=== PATIENT | female | born 1970 | race Caucasian/White ===

== ENCOUNTER → 2017-09-29 11:01 | Outpatient (CLI) | payer BC, SELFPAY ==
--- NOTE | 2017-09-29 11:00 | ECHOCS_ITS ---
Reason For Study: Arrhythmia Procedure This was a 2D Doppler, Color Flow transthoracic echocardiogram. Exam performed in department. Left Ventricle Normal LV size. Mild concentric left ventricular hypertrophy. Left ventricular systolic function is normal. The estimated ejection fraction is 60 %. No regional wall motion abnormalities noted. Right Ventricle Normal RV size. Normal systolic function. Atria Normal left atrium. Normal right atrium. Mitral Valve Normal mitral valve. Tricuspid Valve Normal tricuspid valve. Aortic Valve Normal aortic valve. Trisinus/trileaflet aortic valve. Pulmonic Valve Normal pulmonic valve. Great Vessels Normal aortic root. The pulmonary artery is normal size. Normal inferior vena cava. Pericardium/Pleural No pericardial effusion. Medication 22 gauge I.V. with prn adaptor inserted into left arm. Diluted definity 3ml given slow IV push to enhance endocardial definition. MMode/2D Measurements & Calculations LVIDd: 4.3 cm IVSd: 1.3 cm LVOT diam: 2.0 cm LVIDs: 2.9 cm LVPWd: 1.2 cm LVOT area: 3.2 cm2 RVDd: 3.2 cm FS: 31.8 % Ao root diam: 3.1 cm LAV(MOD-bp): 50.1 ml LA dimension: 4.1 cm LAV(MOD-bp) Indexed: 24.6 ml/m2 LA A4 area: 14.9 cm2 LAV(MOD-sp2): 67.7 ml LAV(MOD-sp4): 35.8 ml RA A4 area: 13.0 cm2 Time Measurements MV dec time: 0.25 sec Doppler Measurements & Calculations MV E max angelo: 101.2 cm/sec Lat Peak E' Angelo: 14.5 cm/sec Med Peak E' Angelo: 15.4 cm/sec MV A max angelo: 76.2 cm/sec E/E' lat: 7.0 E/E' med: 6.6 MV E/A: 1.3 MV V2 max: 98.8 cm/sec MV P1/2t max angelo: 98.4 cm/sec Ao V2 max: 168.6 cm/sec MV max P.9 mmHg MV P1/2t: 67.0 msec Ao max P.4 mmHg MV V2 mean: 37.7 cm/sec MV dec slope: 429.8 cm/sec2 Ao V2 mean: 95.6 cm/sec MV mean P.76 mmHg MVA(P1/2t): 3.3 cm2 Ao mean P.4 mmHg MV V2 VTI: 33.3 cm Ao V2 VTI: 34.5 cm MVA(VTI): 2.4 cm2 MILE(I,D): 2.3 cm2 MILE(V,D): 2.1 cm2 LV V1 max: 109.6 cm/sec SV(LVOT): 78.8 ml PA V2 max: 93.6 cm/sec LV V1 max P.8 mmHg LV V1 mean P.0 mmHg LV V1 mean: 65.7 cm/sec LV V1 VTI: 24.3 cm Interpretation Summary Normal LV size. Mild concentric left ventricular hypertrophy. Left ventricular systolic function is normal. The estimated ejection fraction is 60 %. Contrast injection was performed. Ordering Physician: Wm Andersen Referring Physician: Wm Andersen Performed By: Pepe Au RCS
--- NOTE | 2017-09-29 18:43 | STRESSREP ---
Stress Test Report Exercise stress test 47-year-old lady with a history of chest pain. Stress protocol: Resting EKG demonstrates sinus bradycardia with a rate of 47 bpm. Resting blood pressure is 142/94 mmHg. She did exercised according to regular Karson protocol for 3 minutes and 16 seconds attaining a maximum heart rate of 121 bpm which was 70% of the maximum predicted heart rate. The maximum workload attained was 4.9 metabolic equivalents. At rest there were no ST or T-wave changes noted to suggest ischemia at peak exercise no ST or T-wave changes were noted suggest ischemia. He was however able to accelerate her heart rate appropriately though she did not obtain 85% of the maximum predicted heart rate. The resting blood pressure was 142/94 with a peak of 154/90. No clinical angina was noted. Conclusion: Exercise stress test at a low workload demonstrating adequate chronotropic competence. Low functional aerobic capacity.
== END ==
PROVIDERS: Visit Provider Internal Medicine Cardiovascular Disease
DX: R00.1 Bradycardia, unspecified (principal)
CPT/HCPCS: 93017; 93306; Q9957; A4216; C8929

== ENCOUNTER → 2017-12-04 07:38 | Outpatient (CLI) | payer BC, SELFPAY ==
[2017-12-04 09:00] LABS: Hemoglobin A1c 5.6 % (4.2-6.3)
[2017-12-04 09:19] LABS: T4 Free Direct 1.06 ng/dL (0.76-1.46); Thyroid Stim Hormone (TSH) 2.13 uIU/mL (0.358-3.74)
== END ==
PROVIDERS: Visit Provider Internal Medicine Endocrinology, Diabetes & Metabolism
DX: E03.9 Hypothyroidism, unspecified (principal); R73.03 Prediabetes
CPT/HCPCS: 36415; 83036; 84439; 84443

== ENCOUNTER 2017-12-08 16:38 | Outpatient (RCR) | payer BC, SELFPAY | END 2017-12-22 23:59 | LOC: NS 16:38 | DX: Z68.39 Body mass index [BMI] 39.0-39.9, adult (principal); Z71.3 Dietary counseling and surveillance | CPT/HCPCS: 97802 ==

== ENCOUNTER 2018-01-15 16:30 | Outpatient (RCR) | payer BC, SELFPAY | END 2018-01-22 23:59 | LOC: NS 16:30 | DX: Z68.39 Body mass index [BMI] 39.0-39.9, adult (principal); Z71.3 Dietary counseling and surveillance | CPT/HCPCS: 97803 ==

== ENCOUNTER → 2018-01-29 09:30 | Outpatient (CLI) | payer BC, SELFPAY ==
--- NOTE | 2018-01-29 | TISS_PTH ---
PATIENT: DELMER AVILA LOC: [facility] U#:[id number] AGE/SX: 54/F ROOM: RE01/29/[address]: Dr. Jaxon Hawkins DDS : 1970 BED: DIS: SPEC #: [id number] RECD: 02/03/18 08:27 STATUS: BAM GLEN #: [id number] KUSHAL: 01/29/18 00:[address]: Jaxon Hawkins DEPT: SURGICAL PATHOLOGY RECD BY: Nima Herrera Tissues: Soft palate Procedures: Surgery Specimen Level IV HEADER OPERATION: Biopsy left palate PRE-OP DIAGNOSIS: Not noted TISSUE SUBMITTED: Left soft palate MICROSCOPIC DIAGNOSIS Left soft palate, biopsy: Fragment of squamous mucosa with focal area of recent hemorrhage and ductal dilation. Negative for malignancy. SJ:magnus 02/03/18 MICROSCOPIC DESCRIPTION Slides are reviewed. GROSS DESCRIPTION Received in fixative is one container labeled with the patient's name and designated left palate. The specimen consists of a piece of melchor-pink soft tissue measuring 0.3 x 0.3 x 0.2 cm. The specimen is totally submitted in one cassette. / SJ:rg 01/30/18 TC:5 [facility]: [id number]
--- NOTE | 2018-01-29 09:30 | DT_ITS ---
This patient was seen during an EMR downtime January 26, 2018 - February 02, 2018. This patient may have a combination of paper and electronic documentation or all paper documentation. All documentation is viewable within the e-chart portion of [facility] for each patient visit.
== END ==
PROVIDERS: Visit Provider Dentist Oral and Maxillofacial Surgery
DX: D37.09 Neoplasm of uncertain behavior of other specified sites of the oral cavity (principal)
CPT/HCPCS: 88305

== ENCOUNTER → 2018-02-28 10:03 | Outpatient (CLI) | payer BC, SELFPAY ==
--- NOTE | 2018-02-28 10:56 | RAD_ITS ---
STUDY: X-RAY CHEST REASON FOR EXAM: Female, 47 years old. Cough TECHNIQUE: PA and lateral views of the chest. COMPARISON: None. FINDINGS: Streaky linear markings in the lingula. There is no demonstrated pleural abnormality. Normal size heart. Normal mediastinum and charbel. Normal visualized pulmonary arteries. Normal visualized aortic arch and descending thoracic aorta. There is a levoscoliosis of the thoracic spine. Normal visualized ribs, clavicles, and shoulders. There is no demonstrated abnormality of the visualized soft tissue structures of the upper abdomen. RAD/Chest PA and Lateral IMPRESSION: Lingular atelectasis versus developing infiltrates. Electronically Signed: Aydee Leon MD at 15:36 EDT Tel , Service support ,
--- NOTE | 2018-02-28 10:56 | RAD_ITS ---
STUDY: X-RAY - LUMBAR SPINE REASON FOR EXAM: Female, 47 years old. Back pain, MS TECHNIQUE: 3 view(s) of the lumbar spine were obtained. COMPARISON: None FINDINGS: Normal lumbar lordosis. There is no substantial scoliosis. There is a normal alignment of the vertebrae. There is multilevel endplate spondylosis of the lumbar vertebrae. Normal disc space heights. There is facet arthropathy L4-L5 and L5-S1. There is soft tissue calcifications in the left pelvis suggestive of phleboliths. There is postoperative change right upper quadrant status post cholecystectomy. RAD/Lumbar Spine 2 or 3 Views IMPRESSION: Moderate degenerative change no visualized fracture. Status post cholecystectomy. Electronically Signed: Aydee Leon MD at 15:38 EDT Tel , Service support ,
== END ==
DX: M54.5 Low back pain (principal); R05 Cough
CPT/HCPCS: 71046; 72100

== ENCOUNTER → 2018-03-05 07:50 | Outpatient (CLI) | payer BC, SELFPAY ==
[2018-03-07 15:11] LABS: H. PYLORI STOOL AG Negative (Negative)
== END ==
DX: A04.8 Other specified bacterial intestinal infections (principal)

== ENCOUNTER → 2018-03-14 09:48 | Outpatient (CLI) | payer BC, SELFPAY ==
--- NOTE | 2018-03-14 09:55 | RAD_ITS ---
STUDY: X-RAY CHEST REASON FOR EXAM: Female, 47 years old. Cough. TECHNIQUE: Frontal and lateral views of the chest. COMPARISON: 02/28/2018. FINDINGS: The lungs are clear and expanded. Minimal scar across the mid left lung. There is no demonstrated pleural abnormality. Normal size heart. Normal mediastinum and charbel. Normal visualized pulmonary arteries. Normal visualized aortic arch and descending thoracic aorta. Normal visualized thoracic spine. Normal visualized ribs, clavicles, and shoulders. There is no demonstrated abnormality of the visualized soft tissue structures of the upper abdomen. RAD/Chest PA and Lateral IMPRESSION: No significant abnormality. Electronically Signed: Steve Banerjee MD at 21:41 EDT , Service support ,
== END ==
DX: R93.8 Abnormal findings on diagnostic imaging of other specified body structures (principal)
CPT/HCPCS: 71046

== ENCOUNTER 2018-03-17 15:15 | Outpatient (RCR) | payer BC, SELFPAY | END 2018-03-24 23:59 | disposition home or self-care (01) | LOC: NS 15:15 | DX: Z68.39 Body mass index [BMI] 39.0-39.9, adult (principal); Z71.3 Dietary counseling and surveillance | CPT/HCPCS: 97803 ==

== ENCOUNTER → 2018-03-21 09:41 | Outpatient (CLI) | payer BC, SELFPAY ==
[2018-03-21 10:47] LABS: Hemoglobin A1c 5.5 % (4.2-6.3)
[2018-03-21 10:51] LABS: ALB/GLOB Ratio 1.1 RATIO (0.9-2.4); AST(SGOT) 12 U/L (15-37); Alanine Aminotransfer ALT/SGPT 19 U/L (13-56); Albumin, Serum 3.6 g/dL (3.2-5.0); Alkaline Phosphatase 76 U/L (45-117); Anion Gap 8 (5-15); BUN 11 mg/dL (7-18); BUN/Creat Ratio 10.1 RATIO (10-20); Calcium,Total 8.8 mg/dL (8.5-10.1); Chloride 107 mmol/L (98-107); Cholesterol 172 mg/dL (200); Creatinine, Serum 1.09 mg/dL (0.55-1.02); EST Glomerular Filtration Rate 57 mL/min (>60); Est Glom Filt Rate - Afr Amer 69 mL/min (>60); Globulin 3.4 g/dL (2.2-4.2); Glucose 127 mg/dL (74-106); High Density Lipoprotein 34 mg/dL; Potassium 4.3 mmol/L (3.5-5.1); Sodium Level 142 mmol/L (136-145); T4 Free Direct 0.94 ng/dL (0.76-1.46); Thyroid Stim Hormone (TSH) 1.59 uIU/mL (0.358-3.74); Triglycerides 107 mg/dL; Very Low Density Lipoprotein 21 mg/dL (5-40)
[2018-03-21 10:52] LABS: 24HR. Urine Creatinine 1.36 g/24 HR (0.70-1.90)
[2018-03-23 09:23] LABS: Vitamin D,25 Hydroxy 42.4 ng/mL (29.95-100.01)
== END ==
PROVIDERS: Visit Provider Internal Medicine Endocrinology, Diabetes & Metabolism
DX: E55.9 Vitamin D deficiency, unspecified (principal); E27.9 Disorder of adrenal gland, unspecified; R73.03 Prediabetes; E03.9 Hypothyroidism, unspecified
CPT/HCPCS: 36415; 80053; 80061; 82306; 82570; 83036; 84439; 84443

== ENCOUNTER → 2018-03-24 10:23 | Outpatient (CLI) | payer BC, SELFPAY ==
--- NOTE | 2018-03-24 10:26 | BI_ITS ---
MAMMOGRAPHY - BILATERAL SCREENING 3-D DEJON SYNTHESIS REASON FOR EXAM: Female, 47 years old. Bilateral Screening 3-D tomosynthesis PERTINENT HISTORY: Left breast biopsy 2015 negative. No significant family history. TECHNIQUE: 2-D mammograms and 3-D Dejon synthesis of the breast (s) were performed. CAD was performed. COMPARISON: 09/07/2014 through 08/03/2014. FINDINGS: The breast composition is composed of scattered fibroglandular density. No new asymmetric density, dominant mass, dense spiculated masses, abnormal clustered microcalcifications, architectural distortion, skin thickening or nipple retraction identified. Coarse benign-appearing calcifications. Left breast upper inner quadrant tiny biopsy clip noted. No new abnormality identified with tomosynthesis. There has been no significant change since the prior study. BI/SCREENING MAMM (CAD), BILAT IMPRESSION: No mammographic signs of malignancy. Routine yearly mammograms recommended. ASSESSMENT CATEGORY: BIRADS Category 2: Benign. A letter regarding these results will be sent to the patient by the facility within 30 days. FOLLOW UP RECOMMENDATION: Yearly follow up mammogram recommended. (A) Negative results should not deter biopsy as a palpable lesion should be followed on clinical grounds and biopsy performed if clinically persistent for 3 months or increasing size. Approximately 10% of breast cancers are not detected by mammography. A normal mammogram should not delay biopsy of a clinically suspicious abnormality. . Electronically Signed: Jose Juan Simmons, at 17:07 EDT Tel , Service support ,
--- NOTE | 2018-03-24 10:28 | BD_ITS ---
STUDY: DUAL ENERGY X-RAY ABSORPTIOMETRY / DXA REASON FOR EXAM: Female, 47 years old. Loss of height. TECHNIQUE: Bone Mineral Density (BMD) measurements of lumbar spine and bilateral hips were obtained. COMPARISON: None. FINDINGS: Lumbar Spine (L1-L4): g/cm2 (0.995) / T-score (-1.5) / Z-score (-1.2) Findings are suggestive of osteopenia with a moderate fracture risk. Left Femur Total: g/cm2 (1.077) / T-score (0.5) / Z-score (1.0) Left Femoral Neck: g/cm2 (1.003) / T-score (-0.2) / Z-score (0.5) Right Femur Total: g/cm2 (1.000) / T-score (-0.1) / Z-score (0.4) Right Femoral Neck: g/cm2 (0.885) / T-score (-1.1) / Z-score (-0.4) BD/Dexa Bone Density Study IMPRESSION: The patient is considered osteopenic as outlined below according to World Josh Organization (WHO) criteria with a moderate fracture risk. Reference Information: The T-score is the number of standard deviations above or below the standard which is normal for young adults at their peak bone mineral density. The World Health Organization (WHO) interprets the T-scores as follows: Above -1 Normal bone density Between -1 and -2.5 Osteopenia Equal to / or below -2.5 Osteoporosis As a practical clinical guideline, osteopenia may be graded as follows: Mild -1 through -1.5 Moderate -1.6 through -2.0 Severe -2.1 through -2.4 The Z-score is the number of standard deviations above or below age-matched controls. A Z-score of less than -1.5 would be considered abnormal. References: 1. NIH Osteoporosis and Related Bone Diseases http://www.osteo.org 2. International Society for Clinical Densitometry http://www.iscd.org 3. National Osteoporosis Foundation http://www.nof.org Electronically Signed: Raheem Hood MD at 15:01 EDT Tel [phone], Service support ,
== END ==
DX: Z12.31 Encounter for screening mammogram for malignant neoplasm of breast (principal); Z13.820 Encounter for screening for osteoporosis
CPT/HCPCS: 77063; 77067; 77080

== ENCOUNTER → 2018-03-25 12:55 | Outpatient (CLI) | payer BC, SELFPAY ==
--- NOTE | 2018-03-25 13:10 | CT_ITS ---
STUDY: CT ABDOMEN WITH AND WITHOUT CONTRAST REASON FOR EXAM: Female, 47 years old. Left-sided adrenal mass for follow-up. RADIATION DOSAGE (If Supplied By Facility): CTDIvol = ( 35.78 ) mGy, DLP = ( 2073.03 ) mGycm TECHNIQUE: Transaxial images were obtained pre and post I.V. administration of 100 ml of Isovue 300, and oral contrast. Sagittal and coronal images were reconstructed. Individualized dose optimization techniques were used for this CT. COMPARISON: MR abdomen May 12, 2017. FINDINGS: The visualized lung bases are unremarkable. The visualized portions of the heart are within normal limits. Normal liver. There are surgical clips in the gallbladder fossa consistent with a prior cholecystectomy. Normal spleen. Normal pancreas. Right adrenal gland is normal. Again noted is a left adrenal nodule measuring 2.6 x 2.4 x 1.9 cm not significantly changed in size, as determined by this examiner comparing both studies, with an attenuation on noncontrast enhanced images varying from 6 to -24 Hounsfield units compatible with an adrenal adenoma. Attenuation on initial and delayed contrast-enhanced images is 49 and 13 Hounsfield units respectively. Normal right kidney. Normal left kidney. Normal visualized stomach. Normal visualized small and large bowel. Normal abdominal aorta. Normal inferior vena cava. Normal retroperitoneum. Normal abdominal wall. Normal osseous structures. CT/Abdomen W/WO IV Contrast IMPRESSION: Stable left adrenal nodule compatible with an adrenal adenoma. Electronically Signed: Jim Cummings MD at 7:48 EDT , Service support ,
== END ==
PROVIDERS: Visit Provider Internal Medicine Endocrinology, Diabetes & Metabolism
DX: E27.9 Disorder of adrenal gland, unspecified (principal)
CPT/HCPCS: 74170; Q9967

== ENCOUNTER → 2018-03-28 09:49 | Outpatient (CLI) | payer BC, SELFPAY ==
[2018-04-01 09:08] LABS: Cortisol, Urinary Free 17 ug/L (Undefined)
[2018-04-01 11:11] LABS: Cortisol, Free 24Ur 26 ug/24 hr (0-50)
[2018-04-03 03:06] LABS: Dopamine, UR 118 ug/L (Undefined); Epinephrine, 24Ur 2 ug/24 hr (0-20); Epinephrine, Ur 1 ug/L (Undefined); Metanephrine, Ur 48 ug/L (Undefined); Norepinephrine, 24Ur 26 ug/24 hr (0-135); Norepinephrine, Ur 17 ug/L (Undefined); Normetanephrines, Ur 177 ug/L (Undefined)
[2018-04-03 11:34] LABS: Dopamine, 24Ur 183 ug/24 hr (0-510); Metanephrines, 24Ur 74 ug/24 hr (45-290); Normetanephrines, 24Ur 274 ug/24 hr (82-500)
== END ==
PROVIDERS: Visit Provider Internal Medicine Endocrinology, Diabetes & Metabolism
DX: E55.9 Vitamin D deficiency, unspecified (principal); E27.9 Disorder of adrenal gland, unspecified; R73.03 Prediabetes; E03.9 Hypothyroidism, unspecified
CPT/HCPCS: 81050; 82384; 82530; 83835

== ENCOUNTER 2018-04-01 18:00 | Outpatient (RCR) | payer BC, SELFPAY ==
--- NOTE | 2018-01-16 08:06 | HP.PTEVAL ---
Patient's Visit Information DELMER AVILA is a 47 year old F referred to Physical Therapy by JOHNATHAN KAUR with a diagnosis of MS. Date of Evaluation: 01/16/18 Physical Therapist: MIRELLA EasleyT, OC - Visit Plan Plan: 3x/week for 4-6 wees for. 1. gastroc stretch. 2. Strength R LE. 3. general postural strength program and core. 4. balance ex. Progress all t o I gym program with list when safe. - Subjective Subjective: Has MS. Tried therapy a year ago but did not have time. Needs to get stronger. Started [facility] at the hospital. Wants to wrok out on her own. Needs core strength adn R leg is weak. A couple falls years ago unsure of why and without warning except tripped over basketball hoop once and could not catch self. One time R shoe caught on floor. Has AFO hinged but does not wear it. Pain is intermittent occasionally in R LE and LB if she does too much. One hour with a cart at [facility] is limit. Can't walk a block without support as R leg gives out. Diagnosed with MS at 26. 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 Co-workers walk at lunch and she cannot join them. Prior liked kick boxing and rock climbing. 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 Was very active, now sleeps alot. Even quit one job becasue wparking lot was too far from building. Avoids housework adn cooking too long becasue it hurts to stand too long in hips when R leg gets tired.Feels better when sits down. Basic ADLs are OK. Rolling in bed is hard to do, core is weak. - Pain LBP Pain Intensity (Out of 10): 0 Pain Intensity Range: 0, 5 Comment: on feet too much. - Objective R LE weakness with walking. I 200 feet today until limping got worse. No catches of R toe today. Trasnfers I without UE, Mat trasnfers show core weakness. Steps are reciprocal with one rail ascending and two descending and obvious descending weakness on R. Posture is slouched forward adn flat lordosis, appears to have some diastis recti. Gastroc is tight R LE to -2 degrees of DF with knee straight, otherwise WFL flexibility. reflexes are 2+/3 in patella and achilles adn bi and tri. Sensation LE WNL to gross light touch. Coordination to reciprocal toe tap WFL. Strength R hip 4-/5, L hip 4/5. Knees 4+ L and 4 R. ankles strength 4 B inv/ev/ adn DF. - Balance Scores Functional Gait Assessment Score: 22 % Disability: 26.6700 CATSIB Score (Max score 120 seconds): 100 - Goals Goal 1:: I approp Gym based strengtha dn stretching abd balance program to minimize future problems. Goal Time Frame: 4-6 Weeks Goal 2:: R gastroc length to 2 degrees DF to limit chances of catching toe. Goal Time Frame: 4-6 Weeks Goal 3:: Steps reciprocally without UE ascending and one rail descending. Goal Time Frame: 4-6 Weeks Goal 4:: Patient feel 50% stronger and more activie Goal Time Frame: 4-6 Weeks - Rehabilitation Potential Physical Therapy Diagnosis: MS with resulting weakness and tightness in R LE adn mobility concerns. Rehabilitation Potential: Fair - Anticipated Interventions Patient/Client Instruction: Educate patient on: Condition For the Purpose of:: To improve ability of physical actions for home/community/work/leisure Therapeutic Exercise to Include: Strength training, Balance training, Flexibilty training, Gait and locomotor training For the Purpose of:: To improve muscle performance and motor function, To improve ability of physical actions for home/community/work/leisure, To improve gait and locomotor functions, To improve safety with gait Thank you for the opportunity to evaluate your patient. For Medicare and Medicare HMO plans, please review the plan of care and approve it. It will need to be FAXED BACK to us at [phone] for Medicare purposes. Please let me know if there are questions or concerns regarding this plan of care. Physician Signature: Date:
--- NOTE | 2018-03-03 16:33 | HP.PTREVAL_ITS ---
JOHNATHAN KAUR, It has been my pleasure to treat DELMER AVILA over the last 7 visits for MS. Please see the progress note below for an update on the physical therapy plan of care! Subjective: Feels stronger. Fear of falling is still pretty big. Doing more so fear of falling is more prevalent. Walking faster. No falls lately in the last year. Doing HEP at home and feels better emotionally. Putting foot up on back ext machine is happening now. Will continue via membership. Feeling better than I have felt in 20 years.Can't get up off floor I though. Objective/Function: FGA score is pretty good albeit below a healthy person her age. Walking looks good with mild L trendelenberg. ROM at ankles is to 2 degrees active DF. OVERALL MUCH BETTER OBJECTIVELYA DN SUBJECTIVELY. Plan Plan: f/u three weeks after consistency with I workout, expect then to see for 4 -6 visits to progress to more functional ex program of squats, lunges, off floor transfers as patient tolerates. Goals Goal 1:: I approp Gym based strengtha dn stretching abd balance program to minimize future problems. Goal Time Frame: 4-6 Weeks Goal Progress: Goal Met Goal 2:: R gastroc length to 2 degrees DF to limit chances of catching toe. Goal Time Frame: 4-6 Weeks Goal Progress: Goal Met Goal 3:: Steps reciprocally without UE ascending and one rail descending. Goal Time Frame: 4-6 Weeks Goal Progress: Goal Met Goal 4:: Patient feel 50% stronger and more activie Goal Time Frame: 4-6 Weeks Goal Progress: Goal Met Goal 5:: Get up off floor I Goal Time Frame: 4-6 Weeks Goal Progress: NEW GOAL Anticipated Interventions Patient/Client Instruction: Educate patient on: Condition For the Purpose of:: To improve ability of physical actions for home/community/ work/leisure Therapeutic Exercise to Include: Strength training, Balance training, Flexibilty training, Gait and locomotor training For the Purpose of:: To improve muscle performance and motor function, To improve ability of physical actions for home/community/work/leisure, To improve gait and locomotor functions, To improve safety with gait Please do not hesitate to contact me at [phone] by phone or Fax: if you have questions or concerns regarding this new plan of care! Sincerely, Allan Tejeda, DPT, OC
--- NOTE | 2018-03-18 17:12 | HP.PTREVAL_ITS ---
JOHNATHAN KAUR, It has been my pleasure to treat DELMER AVILA over the last 8 visits for MS. Please see the progress note below for an update on the physical therapy plan of care! Subjective: Was on antibiotics for pneumonia. Does not feel sick. Workout is 2x/week and doing bands at home and stretches 2x/week. Not ready to progress yet, body still getting used to work out. Bumped up weight last time and tolerated well. Doctor did X ray for LBP and has mild degen changes. Pain is central LB and worse in morning and gets up to 10. Better with movement. Walking is usually worse , sitting can be problematic also. Was at presentation last week and it was uncomfortable but not painful. Usually better with movement. Pain stays in back Objective/Function: Tender to post -anterior pressure in LB lumbar region, hyperlordotic slightly, tightness palpable in hip flexors B causing dificult with post pelvic tilt. 3/3 reflexex B patella and achilles. LB multisegmental AROM ext painful and min limited, flexion min limited and stretchy, SB min limited and without discomfort. Tightness in hips with supine rotation L/S contralaterally. Plan Plan: Based on todays re-evaluation of back due to new script for LBP... 2x/ week for 3-4 weeks for. 1. NS DLS starting on mat table. 2. Yoga based stretching of HS, paraspinals and strength of abdominals and core muscles and hips. 3. Progress these to I(core strength and stretching spine). 4. Progress current general machine ex when they get too easy to functional based squats, lunges, chops, etc. Goals Goal 1:: Walk throguh grocery store without increased pain in LB Goal Time Frame: 4-6 Weeks Goal Progress: NEW GOAL Goal 2:: R gastroc length to 2 degrees DF to limit chances of catching toe. Goal Time Frame: 4-6 Weeks Goal Progress: Goal Met Goal 3:: Steps reciprocally without UE ascending and one rail descending. Goal Time Frame: 4-6 Weeks Goal Progress: Goal Met Goal 4:: Patient feel 50% stronger and more activie Goal Time Frame: 4-6 Weeks Goal Progress: Goal Met Goal 5:: Get up off floor I Goal Time Frame: 4-6 Weeks Goal Progress: NEW GOAL Goal 6:: LBP diminished to 0-1/10 at all times and I in approp LB stretch and core strength Goal Time Frame: 2-4 Weeks Goal Progress: NEW GOAL Anticipated Interventions Patient/Client Instruction: Educate patient on: Condition For the Purpose of:: To improve ability of physical actions for home/community/ work/leisure Therapeutic Exercise to Include: Strength training, Balance training, Flexibilty training, Gait and locomotor training Comment: NS spinal strength . Stretch adn ROM L/S For the Purpose of:: To improve muscle performance and motor function, To improve ability of physical actions for home/community/work/leisure, To improve gait and locomotor functions, To improve safety with gait Please do not hesitate to contact me at [phone] by phone or Fax: if you have questions or concerns regarding this new plan of care! Sincerely, Allan Tejeda, DPT, OC
--- NOTE | 2018-06-11 12:09 | HP.PT.NRP ---
HP - Discharge Summary (1) - Patient Information DELMER AVILA was seen in my office for initial evaluation on 01/16/18. The following Plan of Care was established for this patient: - Anticipated Interventions Patient/Client Instruction: Educate patient on: Condition For the Purpose of:: To improve ability of physical actions for home/community/work/leisure Therapeutic Exercise to Include: Strength training, Balance training, Flexibilty training, Gait and locomotor training For the Purpose of:: To improve muscle performance and motor function, To improve ability of physical actions for home/community/work/leisure, To improve gait and locomotor functions, To improve safety with gait This patient was last seen in our office 04/01/18. Pertinent comments regarding their Physical therapy will appear below: Pt seen 11 visits of plan of care. She cancelled the last two and neglected to reschedule. I will disocntinue due to nonattendance. At this point I will be discontinuing this patient from physical therapy. I would be happy to see this patient again in the future if found appropriate by the physician. Thank you! Allan Tejeda, DPT, OC
== END 2018-04-01 19:00 | disposition home or self-care (01) ==
LOC: PT 18:00
DX: K59.09 Other constipation (principal)
CPT/HCPCS: 97110; 97162; 97164; 97530

== ENCOUNTER 2018-04-04 12:30 | Emergency (ER) | payer BC, SELFPAY ==
[2018-04-04 12:31] VITALS: BP 112/65; PULSE 86; RESP 18; TEMP 37.2; O2SAT 99; BMI 38.4
--- NOTE | 2018-04-04 12:45 | RAD_ITS ---
STUDY: X-RAY CHEST REASON FOR EXAM: Female, 47 years old. Fever for few days. TECHNIQUE: PA and lateral views of the chest. COMPARISON: 02/28/2018. FINDINGS: There is new patchy infiltrate in the lingula. There is no demonstrated pleural abnormality. Normal size heart. Normal mediastinum and charbel. Normal visualized pulmonary arteries. Normal visualized aortic arch and descending thoracic aorta. There are mild degenerative changes of the visualized thoracic spine. Normal visualized ribs, clavicles, and shoulders. There is no demonstrated abnormality of the visualized soft tissue structures of the upper abdomen. RAD/Chest PA and Lateral IMPRESSION: Patchy infiltrate in the lingula likely due to pneumonia. Follow-up exam is recommended. Electronically Signed: Matti Rodriguez MD at 13:55 EDT Tel , Service support ,
--- NOTE | 2018-04-04 12:46 | ED.VISSUMM ---
- ER Visit Summary Date of Service: 04/04/18 Chief Complaint: Fever History of Present Illness: The patient is a 47 F who presents with fever. She states it started 2 days ago. T-max of 102?F. Tylenol does bring the temperature down. She had pneumonia on February 28 and had a repeat chest x-ray on March 20 and it showed that the pneumonia had cleared. She does complain of the chest discomfort which she describes as heaviness. She denies shortness of breath. She has a history of MS and takes multiple injections for this. She denies any dysuria. Last dose of Tylenol was at 10 AM this morning. Physical Examination: Vital signs reviewed. HEENT exam unremarkable. Heart is regular rate and rhythm without murmurs. Lungs are clear to auscultation. Abdomen is soft and nontender. Extremities reveal no edema. Peripheral pulses are equal. Skin exam normal. Neurologic exam normal. Test Results: EKG is sinus rhythm with rate of 56. No ST changes. Chest x-ray reveals a lingular infiltrate. White blood cell count 21.3. Creatinine 1.3. Troponin normal Emergency Department Course and Treatment: She is not tachycardic nor tachypneic. Her white count is 21.3. She states she has a history of leukocytosis due to her MS medications. Patient would like to be treated as an outpatient. I will give her doxycycline. She will follow-up with her PCP Treatment Plan: [] Disposition: Discharge Impression: Pneumonia This note was generated with Contently dictation software. It may contain incorrect words, spelling, and punctuation that were not noted in review of the chart prior to signing ED Disposition - Plan for ED Patient: Chief Complaint: Fever Referrals: Shakila Escobedo DO [Primary Care Provider] -
[2018-04-04 13:00] VITALS: O2SAT 98
--- NOTE | 2018-04-04 13:14 | NURSING ---
NO OLD EKGS
[2018-04-04 13:18] LABS: Absolute Lymphocyte Count 2.43 X10^3/ul (0.83-4.51); Basophil# 0.04 X10^3/uL; Basophil% 0.2 % (0-1); Eosinophil# 0.06 X10^3/uL; Eosinophils% 0.3 % (0-5); Hematocrit 40.8 % (37-47); Hemoglobin 13.6 g/dl (12.0-15.0); Lymphocyte # 2.43 X10^3/ul (4.0); Lymphocyte % 11.4 % (19-41); Mean Corp Hgb Conc 33.3 g/gl (32-36); Mean Corpuscular Hgb 31.9 pg (27.0-32.0); Mean Corpuscular Volume 95.8 fL (81-99); Neutrophil # 16.99 X10^3/uL (2.7-7.7); Neutrophil % 79.9 % (47-70); Platelet Count 250 K/mm3 (150-450); RBC Distribution Width SD 49.2 fl (35.1-43.9); Red Blood Count 4.26 M/mm3 (4.2-5.4); White Blood Count 21.3 K/mm3 (4.4-11.0)
[2018-04-04 13:19] LABS: Differential Indicated SCAN CRITERIA MET; POSITIVE COUNT NO; POSITIVE DIFFERENTIAL YES; POSITIVE MORPHOLOGY NO
[2018-04-04 13:33] LABS: Anion Gap 9 (5-15); BUN 11 mg/dL (7-18); Calcium,Total 8.9 mg/dL (8.5-10.1); Chloride 104 mmol/L (98-107); Creatinine, Serum 1.38 mg/dL (0.55-1.02); EST Glomerular Filtration Rate 43 mL/min (>60); Est Glom Filt Rate - Afr Amer 52 mL/min (>60); Estimated Creatinine Clearance 41.24 ml/min; Glucose 101 mg/dL (74-106); Potassium 3.8 mmol/L (3.5-5.1); Sodium Level 137 mmol/L (136-145)
[2018-04-04 13:41] LABS: Differential Comment SCANNED
[2018-04-04 14:30] VITALS: PULSE 61; RESP 26; O2SAT 95
--- NOTE | 2018-04-04 15:02 | ED.DEP ---
ED Disposition - Plan for ED Patient: Disposition: Home or Assisted Living Chief Complaint: Fever Instructions: ED Pneumonia Adult Prescriptions: Doxycycline Monohydrate 100 mg PO BID #20 cap Referrals: Shakila Escobedo DO [Primary Care Provider] -
[2018-04-04] MEDS: Doxycycline 100 MG CAPSULE PO (15:07)
[2018-04-04 15:08] VITALS: BP 114/87; PULSE 60; RESP 20; O2SAT 95
== END 2018-04-04 15:18 | disposition home or self-care (01) ==
PROVIDERS: Emergency Provider Emergency Medicine
DX: J18.9 Pneumonia, unspecified organism (principal); G35 Multiple sclerosis; E03.9 Hypothyroidism, unspecified; Z87.01 Personal history of pneumonia (recurrent); Z79.899 Other long term (current) drug therapy; Z72.0 Tobacco use
CPT/HCPCS: 71046; 80048; 84484; 85025; 93005; 99285; A4216

== ENCOUNTER 2018-04-10 08:23 | Outpatient (RCR) | payer BC, SELFPAY | END 2018-04-24 23:59 | LOC: NS 08:23 | DX: E66.9 Obesity, unspecified (principal); Z68.39 Body mass index [BMI] 39.0-39.9, adult; Z71.3 Dietary counseling and surveillance | CPT/HCPCS: 97803 ==

== ENCOUNTER → 2018-04-24 08:15 | Outpatient (CLI) | payer BC, SELFPAY | DX: J18.9 Pneumonia, unspecified organism (principal) | CPT/HCPCS: 71046 ==

== ENCOUNTER → 2018-05-06 15:44 | Outpatient (CLI) | payer BC, SELFPAY ==
--- NOTE | 2018-05-06 15:48 | CT_ITS ---
STUDY: CT CHEST WITH CONTRAST REASON FOR EXAM: Female, 47 years old. Abnormal chest x-ray, recent pneumonia RADIATION DOSAGE (If Supplied By Facility): CTDIvol = ( 11.81 ) mGy, DLP = ( 702.63 ) mGycm TECHNIQUE: Transaxial imaging was performed following intravenous administration of 100 ml of Isovue 300 contrast material. Individualized dose optimization techniques were used for this CT. COMPARISON: None. FINDINGS: There are linear atelectatic changes of the left lingula. There are minimal linear fibrotic changes of the right middle lobe. There is no demonstrated pleural abnormality. The heart size is normal. There is no pericardial effusion. Normal mediastinum. Normal hilar regions. Normal enhanced pulmonary arteries. Normal aorta arch and descending thoracic aorta. Mild degenerative changes of the visualized thoracolumbar spine. Status post cholecystectomy changes are noted. CT/Chest WITH Contrast IMPRESSION: 1. Linear atelectatic changes of the left lingula. 2. Minimal linear fibrotic changes of the right middle lobe. 3. Status post cholecystectomy. Electronically Signed: Emmett Weldon MD at 23:18 EDT , Service support ,
== END ==
PROVIDERS: Visit Provider Family Medicine
DX: R93.8 Abnormal findings on diagnostic imaging of other specified body structures (principal)
CPT/HCPCS: 71260; Q9967

== ENCOUNTER 2018-05-13 11:58 | Day surgery (SDC) | payer BC, SELFPAY ==
[2018-05-13] VITALS (10 sets, daily range): BP systolic 128–154; BP diastolic 67–84; PULSE 47–73; RESP 16–18; TEMP 36.2–37.1; O2SAT 93–100; BMI 37.7
--- NOTE | 2018-05-13 | FLU_PTH ---
PATIENT: DELMER AVILA LOC: EN U#:[id number] AGE/SX: 47/F ROOM: RE05/13/[address]: Dr. Jose Juan Terrell MD : 1970 BED: DIS: 05/13/2018 SPEC #: [id number] RECD: 05/14/18 08:11 STATUS: BAM GLEN #: [id number] KUSHAL: 05/13/18 00:[address]: oJse Juan Terrell V DEPT: CYTOLOGY RECD BY: Ralph Loera ENTERED: 05/14/18 08:12 SP TYPE: Fluid OTHR DR: Dr. Shakila Escobedo DO Tissues: A - Lingula of left lung B - Lingula of left lung Procedures: Pap Stain (control) Special Stain Group II Surgery Specimen Level IV Cell Block Cytospin Fluid HEADER OPERATION: Bronchoscopy PRE-OP DIAGNOSIS: Atelectasis of left upper lobe TISSUE SUBMITTED: A ? BAL, B ? Brushing smears DIAGNOSIS CYTOLOGY A. BAL (cytospin and cell block): Negative for malignant cells. See cytology study and comment. B. Brushings (smears): Negative for malignant cells. See cytology study and comment. SJ:rg 05/15/18 COMMENT Correlation with clinical, radiologic findings and appropriate follow up are necessary. CYTOLOGY STUDY Slides are reviewed. A. The specimen predominantly consists of macrophages and a few benign respiratory epithelial cells. B. The specimen predominantly consists of benign respiratory epithelial cells and a few macrophages. CYTOLOGY GROSS A - Received is 30 ml of red, cloudy fluid labeled with the patient's name and and designated per the requisition as BAL. Submitted for cytology preparation including cell block. B - Received are six smears labeled with the patient's name and designated per the requisition as brushings. Submitted for staining. 05/14/18 TC:5 CPT: 61624, 17145, 47387
[2018-05-13 11:21] LABS: International Normalized Ratio 0.9; Prothrombin Time (Protime)PT. 12.6 SECONDS (11.7-14.9)
[2018-05-13 11:22] LABS: Partial Thromboplast Time 35.3 Seconds (24.1-36.2)
[2018-05-13 11:23] LABS: BUN 10 mg/dL (7-18); Creatinine, Serum 1.04 mg/dL (0.55-1.02); EST Glomerular Filtration Rate 60 mL/min (>60); Est Glom Filt Rate - Afr Amer 73 mL/min (>60); Uric Acid 5.3 mg/dL (2.6-6.0)
[2018-05-13 11:26] LABS: Erythrocyte Sedimentation Rate 18 mm/hr (0-20)
[2018-05-13 11:29] LABS: Hemoglobin 13.8 g/dl (12.0-15.0); Mean Corp Hgb Conc 32.9 g/gl (32-36); Mean Corpuscular Hgb 31.8 pg (27.0-32.0); Mean Corpuscular Volume 96.8 fL (81-99); Mean Platelet Vol. 9.2 fl (6.2-12.0); Platelet Count 284 K/mm3 (150-450); RBC Distribution Width CV 13.9 % (11.6-14.6); RBC Distribution Width SD 49.8 fl (35.1-43.9); Red Blood Count 4.34 M/mm3 (4.2-5.4); White Blood Count 9.8 K/mm3 (4.4-11.0)
[2018-05-13 11:31] LABS: Scan Indicated on CBC? Y/N NO
--- NOTE | 2018-05-13 14:34 | OP.ENDO_ITS ---
Patient Name: Sarika Crowder Procedure Date: 05/13/2018 1:37 PM Date of : 1970 Age: 47 Procedure: Bronchoscopy Indications: Atelectasis of the left upper lobe Providers: Jose Juan Rachel MD: Requesting Physician: Medicines: Monitored Anesthesia Care, Lidocaine 2% applied to cords 4 mL Complications: No immediate complications Procedure: Pre-Anesthesia Assessment: - Prior to the procedure, a History and Physical was performed, and patient medications and allergies were reviewed. The patient's tolerance of previous anesthesia was also reviewed. The risks and benefits of the procedure and the sedation options and risks were discussed with the patient. All questions were answered, and informed consent was obtained. Prior Anticoagulants: The patient has taken no previous anticoagulant or antiplatelet agents. ASA Grade Assessment: II - A patient with mild systemic disease. After reviewing the risks and benefits, the patient was deemed in satisfactory condition to undergo the procedure. - Risks discussed with the patient include but are not limited to: Pneumothorax, Bleeding, Severe Bleeding, Respiratory failure, Wheeze, Infection, After I obtained informed consent, the scope was passed under direct vision. Throughout the procedure, the patient's blood pressure, pulse, and oxygen saturations were monitored continuously. The bronchoscope was introduced through the left nostril and advanced to the tracheobronchial tree of both lungs. The procedure was accomplished without difficulty. The patient tolerated the procedure well. The total duration of the procedure was 8 minutes. Findings: The nasopharynx/oropharynx appears normal. The larynx appears normal. The vocal cords appear normal. The subglottic space is normal. The trachea is of normal caliber. The eriberto is sharp. The tracheobronchial tree of the right lung was examined to at least the first subsegmental level. Bronchial mucosa and anatomy in the right lung are normal; there are no endobronchial lesions, and no secretions. Left Lung Abnormalities: Guided transbronchial brushings were obtained in the superior lingula segment of the left upper lobe and in the inferior lingula segment of the left upper lobe with a cytology brush and sent for cell count, bacterial culture, viral smears & culture, fungal & AFB analysis and cytology for immunocompromised host protocol. BAL was performed in the [place] inferior lingular segment (B5) and in the LLL superior segment (B6) of the lung and sent for routine cytology, aerobic culture, AFB analysis & culture and fungal analysis. 100 mL of fluid were instilled. 40 mL were returned. The return was clear. There were no mucoid plugs in the return fluid. Multiple specimens were obtained and pooled into one specimen, which was sent for analysis. Impression: - Atelectasis of the left upper lobe - The airway examination of the right lung was normal. - Transbronchial brushings were obtained. - Bronchoalveolar lavage was performed. Recommendation: - Await BAL, brushing and cytology results. - Follow up with bronchoscopist in one week. Procedure Code(s): --- Professional --- 88843, Bronchoscopy, rigid or flexible, including fluoroscopic guidance, when performed; with bronchial alveolar lavage 44005, Bronchoscopy, rigid or flexible, including fluoroscopic guidance, when performed; with brushing or protected brushings Diagnosis Code(s): --- Professional --- J98.11, Atelectasis CPT copyright 2017 [employer]. All rights reserved. The codes documented in this report are preliminary and upon locomotive engineer diesel review may be revised to meet current compliance requirements. MD Jose Juan Aquino, 05/13/2018 2:34:12 PM This report has been signed electronically. Number of Addenda: 0 Note Initiated On: 05/13/2018 1:37 PM
[2018-05-13 15:05] LABS: Cytology, Body Fluid / CSF SEE PATHOLOGY REPORT
[2018-05-18 07:08] LABS: QNTFERON TB Ag Minus Nil Value 0 IU/mL (.); QNTFERON TB Ag Value 0.11 IU/mL (.); QNTFERON TB Mitogen Value > 10.00 IU/mL (.); QNTFERON TB Nil Value 0.11 IU/mL (.)
[2018-05-18 09:04] LABS: QNTIFERON TB Gold Negative (Negative)
== END 2018-05-13 16:25 | disposition home or self-care (01) ==
LOC: EN 11:58 → AC 11:59
PROVIDERS: Visit Provider Internal Medicine Pulmonary Disease
PROC: 0BJ08ZZ Inspection of Tracheobronchial Tree, Via Natural or Artificial Opening Endoscopic (ICD-10-PCS; CPT 31622; principal; 2018-05-13 13:15)
DX: J98.11 Atelectasis (principal); J45.909 Unspecified asthma, uncomplicated; E66.09 Other obesity due to excess calories; Z68.38 Body mass index [BMI] 38.0-38.9, adult; F32.9 Major depressive disorder, single episode, unspecified; E03.9 Hypothyroidism, unspecified; R73.03 Prediabetes; G35 Multiple sclerosis; Z87.01 Personal history of pneumonia (recurrent); Z90.49 Acquired absence of other specified parts of digestive tract; Z79.899 Other long term (current) drug therapy; Z87.891 Personal history of nicotine dependence
CPT/HCPCS: 31623; 31624; 36415; 82565; 84520; 84550; 85027; 85610; 85652; 85730; 86480; 87015; 87070; 87077; 87101; 87106; 87116; 87205; 87206; 88108; 88305; 88313; J7120

== ENCOUNTER 2018-05-15 08:00 | Outpatient (RCR) | payer BC, SELFPAY | END 2018-05-24 23:59 | LOC: NS 08:00 | DX: E66.9 Obesity, unspecified (principal); Z68.39 Body mass index [BMI] 39.0-39.9, adult; Z71.3 Dietary counseling and surveillance | CPT/HCPCS: 97803 ==

== ENCOUNTER 2018-06-06 15:08 | Emergency (ER) | payer BC, SELFPAY ==
[2018-06-06 15:08] VITALS: BP 160/78; PULSE 56; RESP 18; TEMP 36.7; O2SAT 98; BMI 38.4
--- NOTE | 2018-06-06 15:10 | RAD_ITS ---
STUDY: X-RAY - RIGHT HAND REASON FOR EXAM: Female, 47 years old. Fall. Pain. TECHNIQUE: 3 view(s) of the hand. COMPARISON: None. FINDINGS: Normal radiocarpal articulation. Normal distal radioulnar joint. Normal visualized carpal bones. Normal carpal articulations Normal carpometacarpal articulation of the thumb. Normal second through fifth carpometacarpal joints. Normal metacarpi. Normal metacarpophalangeal joint of the thumb. Normal interphalangeal joint of the thumb. Normal proximal and distal phalanges of the thumb. Normal metacarpophalangeal joints of the second through fifth fingers. Normal proximal and distal interphalangeal joints of the second through fifth fingers. Normal phalanges of the second through fifth fingers. The soft tissue structures are unremarkable. RAD/Hand Min 3 Views IMPRESSION: Normal x-ray examination of the hand. Electronically Signed: Steve Banerjee MD at 15:38 EDT , Service support ,
[2018-06-06 16:00] VITALS: BP 154/80; PULSE 60; RESP 14; O2SAT 98
--- NOTE | 2018-06-06 16:06 | ED.DEP ---
ED Disposition - Plan for ED Patient: Chief Complaint: Upper Extremity Injury Instructions: ED Contusion Upper Ext Referrals: Shakila Escobedo DO [Primary Care Provider] -
--- NOTE | 2018-06-06 16:10 | ED.DCSUM_ITS ---
- ER Visit Summary Date of Service: 06/06/18 Chief Complaint: Right ring finger pain History of Present Illness: The patient is a 47 F presenting with pain of her right ring finger. This occurred after fall today. She states she tripped and fell. She did not hit her head or lose consciousness. She states she has a history of MS and falls frequently. She did not try any medications at home. She presented due to persistent pain. No other injuries. Physical Examination: Vitals are stable. Patient is afebrile. Alert no acute distress. HEENT exam is unremarkable. Neck is supple. Lungs are clear and equal bilaterally. Heart is regular rate and rhythm. Extremities right 4th digit tenderness with mild ecchymosis. Active full range of motion. Neurovascular intact distally. Skin is warm and dry. Remainder of exam is unremarkable. Emergency Department Course and Treatment: X-ray of the right hand shows no acute process. Patient was put in aluminum foam splint. She is advised to ice and elevate. She is given Motrin in the emergency department. She declined additional pain medication. She is advised to follow up with her primary care physician. Advised return ED if worsening complaints. Disposition: Discharge home Impression: Right ring finger contusion This note was generated with [employer] dictation software. It may contain incorrect words, spelling, and punctuation that were not noted in review of the chart prior to signing ED Disposition - Plan for ED Patient: Chief Complaint: Upper Extremity Injury Instructions: ED Contusion Upper Ext Referrals: Shakila Escobedo DO [Primary Care Provider] -
[2018-06-06] MEDS: Ibuprofen 600 MG Tablet PO (16:16)
[2018-06-06 16:17] VITALS: BP 150/80; PULSE 55; O2SAT 99
== END 2018-06-06 16:25 | disposition home or self-care (01) ==
LOC: ED 16:13
PROVIDERS: Emergency Provider Emergency Medicine
DX: S60.041A Contusion of right ring finger without damage to nail, initial encounter (principal); W01.0XXA Fall on same level from slipping, tripping and stumbling without subsequent striking against object, initial encounter; Y93.9 Activity, unspecified; Y92.9 Unspecified place or not applicable; K21.9 Gastro-esophageal reflux disease without esophagitis; G35 Multiple sclerosis; E03.9 Hypothyroidism, unspecified; Z79.899 Other long term (current) drug therapy; Z72.0 Tobacco use
CPT/HCPCS: 73130; 99283

== ENCOUNTER 2018-06-18 08:30 | Outpatient (RCR) | payer BC, SELFPAY | END 2018-06-24 23:59 | LOC: NS 08:30 | DX: E66.9 Obesity, unspecified (principal); Z68.39 Body mass index [BMI] 39.0-39.9, adult; Z71.3 Dietary counseling and surveillance | CPT/HCPCS: 97803 ==

== ENCOUNTER 2018-07-09 08:20 | Outpatient (RCR) | payer BC, SELFPAY | END 2018-07-24 23:59 | LOC: NS 08:20 | DX: E66.9 Obesity, unspecified (principal); Z68.39 Body mass index [BMI] 39.0-39.9, adult; Z71.3 Dietary counseling and surveillance ==

== ENCOUNTER 2018-08-06 08:22 | Outpatient (RCR) | payer BC, SELFPAY | END 2018-08-24 23:59 | LOC: NS 08:22 | DX: E66.9 Obesity, unspecified (principal); Z68.39 Body mass index [BMI] 39.0-39.9, adult; Z71.3 Dietary counseling and surveillance | CPT/HCPCS: 97803 ==

== ENCOUNTER 2018-08-19 18:00 | Outpatient (RCR) | payer BC, SELFPAY ==
--- NOTE | 2018-07-20 07:29 | HP.PTEVAL_ITS ---
Patient's Visit Information DELMER AVILA is a 47 year old F referred to Physical Therapy by Freddy Lopez with a diagnosis of Multiple Sclerosis. Date of Evaluation: 07/13/18 Physical Therapist: Jose Dejesus - Visit Plan Frequency: 2x /Week Duration: 6 Weeks Plan: Start with neutral spine core strengthening, add in balance training and BLE strengthening as tolerated. - Subjective Subjective: Pt. is here today for her initial evaluation with diagnosis of MS. Pt. was originally diagnosed in 2004. Pt. she was previously seen for back pain and BLE weakness. Pt. was doing well, but contracted pneumonia, and subsequently a collapsed lung. Pt. reports now having increased low back pain, which had previously been lower in symptoms while she was being more active. Pt. reports having BLE weakness, back pain, difficulty with gait, her legs are giving out on her as well. Pt. reports having a history of a R ankle injury that required surgery, but did not have due to her MS. 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 Pt. reports no recent falls, but has fallen x3 this year. Pt. reports having increased back pain after being sick and unable to stay on track with exercises. Pt. has had xrays that showed some facet arthrosis, but no DDD. Pt. is hopeful to increase cardiovascular fitness, general strength, improve balance and reduce low back pain. - Objective POSTURE: Pt. has equal shoudler heights bilaterally. Pt. has normal iliasc crest heights. Pt. has normal knee positioning bilateraly. She has have increased bilateral pes planus. No lateral shift noted. PALPATION: Pt. has tenderness as L4/L5 to spring testing. Pt. has mild tenderness throughout lumbar paraspinals. NEURO: Normal, 2+ bilateral achilles/patellar DTR. Pt. is able to rise on heels and toes without LOB, did use balance aide. ROM: LUMBAR SPINE: flexion- nil loss NE, ext mod loss mild increase NW, SB R mod loss increase NW, SB L min/nil loss increase NW, rotation min/nil loss NE bilat. Pt. has normal hip ROM bilaterally. TIght HS bilaterall, tight iliopsoas bilaterally. MMT: RLE- ankle 5-/5 throughout, except DF 4-/5; knee- ext 4/5, flexion 4/5; hip- flexion 4-/5, abd 4/5., ext 4/5. LLE- ankle 5/5 throughout; knee- ext 4/5, flexixon 4/5; hip- flexion 4-/5, abd 4/5, ext 4/5. Core strength- poor. GAIT: Pt. ambulates without AD, but does have increased L lateral lean during L stance phase and increased R over pronation. Pt. has increasd SONAM, but normal step length. - Balance Scores Functional Gait Assessment Score: 24 % Disability: 20.0000 - Goals Goal 1:: Pt. to be I with HEP. Goal Time Frame: 4-6 Weeks Goal 2:: Pt. to have increased BLE and core strength increased by 1/2 grade. Goal Time Frame: 4-6 Weeks Goal 3:: Pt. to have reduced low back pain to 0-1/10 pain with all ADLs and household activities. Goal Time Frame: 4-6 Weeks Goal 4:: Pt. to have increased FGA to 28/30 indicating reduced risk for future falls. Goal Time Frame: 4-6 Weeks - Rehabilitation Potential Physical Therapy Diagnosis: pt. has signs and symptoms of MS with subsequent LE weakness, difficulty with walking, imbalance and low back pain. Pt. has marked weakness through her BLEs and core. Pt. is having increased LBP, but I believe this would be reduced with core stability exercises and her balance would be improved with BLE strengthening and with dynamic balance training. Rehabilitation Potential: Fair - Anticipated Interventions Patient/Client Instruction: Educate patient on: Condition, Plan of Care, Risk Factors, Benefits of Fitness Program For the Purpose of:: To foster healthy habits, To improve decision making, To facilitate caregiver knowledge, To improve self management, To prevent re- injury, To improve ability to perform tasks related to life management, To improve tolerance to ADL's Therapeutic Exercise to Include: Strength training, Power training, Endurance training, Balance training, Coordination, Body mechanics, Postural training, Flexibilty training, Gait and locomotor training For the Purpose of:: To decrease pain, To increase ROM, To improve nutrient delivery to tissue, To increase oxygenation perfusion, To improve muscle performance and motor function, To improve gait and locomotor functions, To decrease soft tissue restriction, To increase flexibility/ROM, To improve endurance, To improve balance, To improve safety with gait, To assume or resume ADL's Thank you for the opportunity to evaluate your patient. For Medicare and Medicare HMO plans, please review the plan of care and approve it. It will need to be FAXED BACK to us at [phone] for Medicare purposes. Please let me know if there are questions or concerns regarding this plan of care. Physician Signature: Date:
--- NOTE | 2018-10-09 17:10 | HP.PTREVAL_ITS ---
Freddy Lopez, It has been my pleasure to treat DELMER AVILA over the last 5 visits for Multiple Sclerosis. Please see the progress note below for an update on the physical therapy plan of care! Subjective: pt. reports I feel like I am improiving, but now where near where I need to be. pt. reports no back pain today. Pt. had questioning about orthotics as well. Objective/Function: Pt. tolerated all PT without adverse reaction. Pt. continues to have decreased pain in lumbar spine. Pt. is progressing with her strength as well. Pt. is no longer having back pain. Pt. is hopeful to increase her strength of her core and legs to get back to all recreational activities without limitations. FGA /30- improving. MMT: RLE- ankle 5-/5 DF, PF 5/5; knee 5/5 throughout; hip- flxion 4+/5, abd 4/5, ext 4/5. LLE- ankle 5/5 throughout; knee- 5/5 throughout; hip- flexion 4/5, abd 4/5, ext 4/5. GAIT: Pt. continues to present with functional weakness in anterior tib, but is able to ambualte without LOB. Pt. would benefit from further PT to increase stability and safety with all functional mobility Plan Plan: Pt. is wanting to be more PT, she has 1 more appotinment and will re assess again. I anticipate patient needing further appointments to further work on strengthening and progress to gym exercises. Goals Goal 1:: Pt. to be I with HEP. Goal Time Frame: 4-6 Weeks Goal Progress: Goal Met Goal 2:: Pt. to have increased BLE and core strength increased by 1/2 grade. Goal Time Frame: 4-6 Weeks Goal Progress: Progressing Goal 3:: Pt. to have reduced low back pain to 0-1/10 pain with all ADLs and household activities. Goal Time Frame: 4-6 Weeks Goal Progress: Goal Met Goal 4:: Pt. to have increased FGA to 28/30 indicating reduced risk for future falls. Goal Time Frame: 4-6 Weeks Goal Progress: Progressing Anticipated Interventions Patient/Client Instruction: Educate patient on: Condition, Plan of Care, Risk Factors, Benefits of Fitness Program For the Purpose of:: To foster healthy habits, To improve decision making, To facilitate caregiver knowledge, To improve self management, To prevent re- injury, To improve ability to perform tasks related to life management, To improve tolerance to ADL's Therapeutic Exercise to Include: Strength training, Power training, Endurance training, Balance training, Coordination, Body mechanics, Postural training, Flexibilty training, Gait and locomotor training For the Purpose of:: To decrease pain, To increase ROM, To improve nutrient delivery to tissue, To increase oxygenation perfusion, To improve muscle performance and motor function, To improve gait and locomotor functions, To de crease soft tissue restriction, To increase flexibility/ROM, To improve endurance, To improve balance, To improve safety with gait, To assume or resume ADL's Please do not hesitate to contact me at [phone] by phone or if you have questions or concerns regarding this new plan of care! Sincerely, Jose Dejesus DPT
--- NOTE | 2019-01-05 07:38 | HP.PTDCNRP_ITS ---
HP - Discharge Summary (1) - Patient Information DELMER AVILA was seen in my office for initial evaluation on 07/13/18. The following Plan of Care was established for this patient: Initial Frequency: 2x /Week Initial Duration: 6 Weeks - Anticipated Interventions Patient/Client Instruction: Educate patient on: Condition, Plan of Care, Risk Factors, Benefits of Fitness Program For the Purpose of:: To foster healthy habits, To improve decision making, To facilitate caregiver knowledge, To improve self management, To prevent re- injury, To improve ability to perform tasks related to life management, To improve tolerance to ADL's Therapeutic Exercise to Include: Strength training, Power training, Endurance training, Balance training, Coordination, Body mechanics, Postural training, F lexibilty training, Gait and locomotor training For the Purpose of:: To decrease pain, To increase ROM, To improve nutrient delivery to tissue, To increase oxygenation perfusion, To improve muscle performance and motor function, To improve gait and locomotor functions, To decrease soft tissue restriction, To increase flexibility/ROM, To improve endurance, To improve balance, To improve safety with gait, To assume or resume ADL's This patient was last seen in our office 08/19/18. Pertinent comments regarding their Physical therapy will appear below: Pt. was treated for her low back pain, imbalance and LE weakness. Pt. was not seen in several month and had new case opened. This case will be DC at this point in time. At this point I will be discontinuing this patient from physical therapy. I would be happy to see this patient again in the future if found appropriate by the physician. Thank you! MIRELLA SchaeferT
== END 2018-08-19 19:00 | disposition home or self-care (01) ==
LOC: PT 18:00
PROVIDERS: Referring Provider Internal Medicine; Visit Provider Internal Medicine
DX: G35 Multiple sclerosis (principal); M62.81 Muscle weakness (generalized)
CPT/HCPCS: 97110; 97162; 97530

== ENCOUNTER 2018-09-17 08:19 | Outpatient (RCR) | payer BC, SELFPAY | END 2018-09-24 23:59 | LOC: NS 08:19 | DX: E66.9 Obesity, unspecified (principal); Z68.39 Body mass index [BMI] 39.0-39.9, adult; Z71.3 Dietary counseling and surveillance | CPT/HCPCS: 97803 ==

== ENCOUNTER 2018-10-01 08:07 | Outpatient (RCR) | payer BC, SELFPAY ==
[2018-09-21 10:54] VITALS: BMI 39.3
== END 2018-10-22 23:59 ==
LOC: NS 08:07
DX: E66.9 Obesity, unspecified (principal); Z68.39 Body mass index [BMI] 39.0-39.9, adult; Z71.3 Dietary counseling and surveillance
CPT/HCPCS: 97803

== ENCOUNTER → 2018-10-10 10:32 | Outpatient (CLI) | payer BC, SELFPAY ==
[2018-10-06 09:09] VITALS: BMI 39.6
--- NOTE | 2018-10-10 11:55 | RAD_ITS ---
STUDY: X-RAY CHEST REASON FOR EXAM: Female, 48 years old. History of pneumonia. TECHNIQUE: Frontal and lateral views of the chest. COMPARISON: 04/24/2018. FINDINGS: The lungs are clear and expanded. Minimal linear scarring in the lower left lung. There is no demonstrated pleural abnormality. Normal size heart. Normal mediastinum and charbel. Normal visualized pulmonary arteries. Normal visualized aortic arch and descending thoracic aorta. There are diffuse degenerative changes of the visualized thoracic spine. Normal visualized ribs, clavicles, and shoulders. There is no demonstrated abnormality of the visualized soft tissue structures of the upper abdomen. RAD/Chest PA and Lateral IMPRESSION: No significant abnormality. Electronically Signed: Steve Banerjee MD at 23:57 EST , Service support ,
== END ==
LOC: RAD 10:33
PROVIDERS: Family Provider Internal Medicine; PCP Internal Medicine; Referring Provider Internal Medicine Pulmonary Disease; Visit Provider Internal Medicine Pulmonary Disease
DX: Z87.01 Personal history of pneumonia (recurrent) (principal)
CPT/HCPCS: 71046

== ENCOUNTER → 2018-10-24 09:32 | Outpatient (CLI) | payer BC, SELFPAY ==
[2018-10-20 13:50] VITALS: BMI 39.6
[2018-10-24 10:55] LABS: Hemoglobin A1c 5.5 % (4.2-6.3)
[2018-10-24 10:58] LABS: Anion Gap 3 (5-15); BUN 13 mg/dL (7-18); BUN/Creat Ratio 11.4 RATIO (10-20); Calcium,Total 8.7 mg/dL (8.5-10.1); Chloride 109 mmol/L (98-107); Creatinine, Serum 1.14 mg/dL (0.55-1.02); EST Glomerular Filtration Rate 54 mL/min (>60); Est Glom Filt Rate - Afr Amer 65 mL/min (>60); Free T3 2.7 pg/mL (2.18-3.98); Glucose 90 mg/dL (74-106); Sodium Level 142 mmol/L (136-145); T4 Free Direct 0.99 ng/dL (0.76-1.46); Thyroid Stim Hormone (TSH) 1.66 uIU/mL (0.358-3.74)
== END ==
LOC: LAB 09:35
PROVIDERS: Family Provider Internal Medicine; PCP Internal Medicine; Referring Provider Internal Medicine Endocrinology, Diabetes & Metabolism; Visit Provider Internal Medicine Endocrinology, Diabetes & Metabolism
DX: E03.9 Hypothyroidism, unspecified (principal); E27.9 Disorder of adrenal gland, unspecified; R73.03 Prediabetes
CPT/HCPCS: 36415; 80048; 83036; 84439; 84443; 84481

== ENCOUNTER 2018-11-17 16:00 | Outpatient (RCR) | payer BC, SELFPAY ==
[2018-10-20 13:50] VITALS: BMI 39.6
== END 2018-11-22 23:59 ==
LOC: NS 16:00
PROVIDERS: Family Provider Internal Medicine; PCP Internal Medicine
DX: E66.9 Obesity, unspecified (principal); Z68.39 Body mass index [BMI] 39.0-39.9, adult; Z71.3 Dietary counseling and surveillance
CPT/HCPCS: 97803

== ENCOUNTER 2018-12-09 16:29 | Outpatient (RCR) | payer BC, SELFPAY ==
[2018-11-18 13:26] VITALS: BMI 39.6
== END 2018-12-09 23:59 | disposition home or self-care (01) ==
LOC: NS 16:29
PROVIDERS: Family Provider Internal Medicine; PCP Internal Medicine
DX: E66.9 Obesity, unspecified (principal); Z68.39 Body mass index [BMI] 39.0-39.9, adult; Z71.3 Dietary counseling and surveillance
CPT/HCPCS: 97803

== ENCOUNTER 2019-01-06 18:00 | Outpatient (RCR) | payer BC, SELFPAY ==
[2018-10-06 09:09] VITALS: BMI 39.6
[2018-10-20 13:50] VITALS: BMI 39.6
--- NOTE | 2018-10-27 13:30 | HP.PTEVAL_ITS ---
Patient's Visit Information DELMER AVILA is a 48 year old F referred to Physical Therapy by Freddy Lopez with a diagnosis of Multiple Sclerosis. Date of Evaluation: 10/26/18 Physical Therapist: Jose Dejesus DPT - Visit Plan Frequency: 2x /Week Duration: 4 Weeks Plan: Start with core stability, BLE strengthening. Add in HS stretching progressing to HEP. Add in dynamic walking balance activities as able. Add in R DF strengthening. PRogress to gym exercises to be independent in order to increase patient carry over and independent self management. - Subjective Findings: Pt. is here today for her initial evaluation with diagnosis of multiple Sclerosis. Pt. reports occassional falls and low back pain. Pt. reports having a recent fall, yesterday. Pt. reports N/T in RLE, broken ankle as well. Pt. reports having intense back pain ~3 weeks ago, but was told that it is just arthritis. Pt. was originally diagnosed with MS approximately 20+ years ago. Pt. does have a brace, but does not like to wear. 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 Pt. reprots chronic fatigue and is having increased balance issues over the past 6 months. Pt. is hopeful to increase her strength and balance in order to get back to all recreational and gym activities without limitations. - Pain Low bacak Pain Intensity (Out of 10): 2 Pain Intensity Range: 1, 4 - Objective POSTURE: Pt. has generally flexed posture. Pt. has increased wt. shift to L side in stance. pt. has incrased hip ER on R side and slight knee flexion. PALPATION: Pt. has no pain with palpation of lumbar spine and bilateral hips. Pt. has no pain with palpation of R LE. NEURO: Pt. has normal sensation of BLEs, except slight reduction of lateral aspect of RLE. Pt. has 3+ DTR on RLE, 2+ on LLE. ROM: Pt. has full ROM of BLE, except tight throughout bilateral hamstrings. Pt. has decreased hip extension and decreased lumbar ROM as follows: flexion min loss, ext mod loss, SB min loss bilat, rotation min loss bilat. MMT: RLE- ankle DF- 4/5, PF 5/5; knee- ext 5-/5, flexion 4+/5, hip- flexion 4/5, abd 4/5, ext 4/5. LLE- ankle- 5/5; knee- ext 5/5, flexion 5/5; hip- flexion 4+/5, abd 4+/5, ext 5-/5. Core strength- poor. GAIT: Pt. ambulates without AD, but tends to externally rotate her R hip, hip hike to advance RLE. Pt. hs decreased foot clearance on her R side, but compensates wtih above mentioned pattern. STAIRS: PT. completed with step to pattern with use of 1 HR. - Balance Scores Functional Gait Assessment Score: 19 % Disability: 36.6700 - Goals Goal 1:: Pt. to be I with HEP. Goal Time Frame: 4-6 Weeks Goal 2:: Pt. to have increased BLE ane core strength increased by 1/2 grade of all effected musculature. Goal Time Frame: 4-6 Weeks Goal 3:: Pt. to ambulate with normal gait pattern with increased R foot clearance reducing risk for future falls. Goal Time Frame: 4-6 Weeks Goal 4:: Pt. to have increased FGA score to 23/30 indicating reduced risk for future falls. Goal Time Frame: 4-6 Weeks Goal 5:: Pt. to complete all work activities and ADLs with 0-1/10 pain in her low back allowing for increased quality of life. Goal Time Frame: 4-6 Weeks - Rehabilitation Potential Physical Therapy Diagnosis: Pt. has signs and symptoms consistent with general weakness, especially with her RLE and R ankle, core weakness and imbalance from MS. Pt. would benefit from PT to address above issues progressing back to gym exercsies and dyanmic balance movements to reduce risk for future falls. Rehabilitation Potential: Good - Anticipated Interventions Patient/Client Instruction: Educate patient on: Condition, Plan of Care, Risk Factors, Benefits of Fitness Program For the Purpose of:: To improve decision making, To facilitate caregiver knowledge, To improve self management, To prevent re-injury, To improve ability to perform tasks related to life management, To improve tolerance to ADL's Therapeutic Exercise to Include: Strength training, Power training, Endurance training, Balance training, Body mechanics, Postural training, Flexibilty training, Active ROM, Dynamic Lumbar Stabilization For the Purpose of:: To decrease pain, To increase ROM, To improve nutrient delivery to tissue, To increase oxygenation perfusion, To improve muscle performance and motor function, To improve ability to perform ADL's, To improve ability of physical actions for home/community/work/leisure, To improve gait and locomotor functions, To improve health of tissue, To increase flexibility/ROM, To improve balance, To improve safety with gait Thank you for the opportunity to evaluate your patient. For Medicare and Medicare HMO plans, please review the plan of care and approve it. It will need to be FAXED BACK to us at [phone] for Medicare purposes. For Medicare only, by signing this I certify the plan of care. Please let me know if there are questions or concerns regarding this plan of care. Physician Signature: Date:
--- NOTE | 2018-12-14 08:26 | HP.PTREVAL ---
Freddy Lopez, It has been my pleasure to treat DELMER AVILA over the last 8 visits for Multiple Sclerosis. Please see the progress note below for an update on the physical therapy plan of care! Subjective: Pt. reports I am about 45% better overall. She reprots contiuned difficulty with balance and weakness. Pt. reports being HEP compliant occassionally, but is trying to get in gym more frequently. Pt. reports this is often hard due to work schedule. Objective/Function: ROM: lumbar spine limited with flexion and ext, but no pain. MMT: Core strength- fair-, RLE- ankle- DF 4/5, PF 4+/5, INV 4/5, EVR 4/5; knee- ext 5-/5, flexion 5-/5; hip- flexion 4/5, abd 4/5, ext 4/5. LLE- ankle 5/5 throughout; knee- ext 5/5, flexion 5/5; hip- flexion 4+/5, abd 4+/5, ext 5/5. GAIT: Pt. is able to amnbulate with proper foot clearance throughout pattern, but does have to exaggerated hip flexion. STAIRS: Pt. is able to negotiate, but does require use of BHR and increased difficulty with eccentric lowering. FGA- 20/30 increased difficulty with narrow SONAM, stairs, stepping over objects. Plan Plan: Requesting further PT, x2 per week for 4 weeks, 8 in total. Progress HEP and progress patient to gym exercises. Goals Goal 1:: Pt. to be I with HEP. Goal Time Frame: 4-6 Weeks Goal Progress: Progressing Goal 2:: Pt. to have increased BLE ane core strength increased by 1/2 grade of all effected musculature. Goal Time Frame: 4-6 Weeks Goal Progress: Progressing Goal 3:: Pt. to ambulate with normal gait pattern with increased R foot clearance reducing risk for future falls. Goal Time Frame: 4-6 Weeks Goal 4:: Pt. to have increased FGA score to 23/30 indicating reduced risk for future falls. Goal Time Frame: 4-6 Weeks Goal Progress: Progressing Goal 5:: Pt. to complete all work activities and ADLs with 0-1/10 pain in her low back allowing for increased quality of life. Goal Time Frame: 4-6 Weeks Goal Progress: Progressing Anticipated Interventions Patient/Client Instruction: Educate patient on: Condition, Plan of Care, Risk Factors, Benefits of Fitness Program For the Purpose of:: To improve decision making, To facilitate caregiver knowledge, To improve self management, To prevent re-injury, To improve ability to perform tasks related to life management, To improve tolerance to ADL's Therapeutic Exercise to Include: Strength training, Power training, Endurance training, Balance training, Body mechanics, Postural training, Flexibilty training, Active ROM, Dynamic Lumbar Stabilization For the Purpose of:: To decrease pain, To increase ROM, To improve nutrient delivery to tissue, To increase oxygenation perfusion, To improve muscle performance and motor function, To improve ability to perform ADL's, To improve ability of physical actions for home/community/work/leisure, To improve gait and locomotor functions, To improve health of tissue, To increase flexibility/ROM, To improve balance, To improve safety with gait Please do not hesitate to contact me at [phone] by phone or if you have questions or concerns regarding this new plan of care! Sincerely, Jose Dejesus DPT
--- NOTE | 2019-05-03 09:55 | HP.PTDCNRP_ITS ---
HP - Discharge Summary (1) - Patient Information DELMER AVILA was seen in my office for initial evaluation on 10/26/18. The following Plan of Care was established for this patient: Initial Frequency: 2x /Week Initial Duration: 4 Weeks - Anticipated Interventions Patient/Client Instruction: Educate patient on: Condition, Plan of Care, Risk Factors, Benefits of Fitness Program For the Purpose of:: To improve decision making, To facilitate caregiver knowledge, To improve self management, To prevent re-injury, To improve ability to perform tasks related to life management, To improve tolerance to ADL's Therapeutic Exercise to Include: Strength training, Power training, Endurance training, Balance training, Body mechanics, Postural training, Flexibilty training, Active ROM, Dynamic Lumbar Stabilization For the Purpose of:: To decrease pain, To increase ROM, To improve nutrient delivery to tissue, To increase oxygenation perfusion, To improve muscle perfo rmance and motor function, To improve ability to perform ADL's, To improve ability of physical actions for home/community/work/leisure, To improve gait and locomotor functions, To improve health of tissue, To increase flexibility/ROM, To improve balance, To improve safety with gait This patient was last seen in our office 01/06/19. Pertinent comments regarding their Physical therapy will appear below: Pt. was seen for her MS and weakness. Pt. was progressing, but did not attend her last few visits. Pt. has not been seen in several months and will be DC from PT at this point in time. At this point I will be discontinuing this patient from physical therapy. I would be happy to see this patient again in the future if found appropriate by the physician. Thank you! Jose Dejesus DPT
== END 2019-01-06 19:00 | disposition home or self-care (01) ==
LOC: PT 18:00
PROVIDERS: Family Provider Internal Medicine; PCP Internal Medicine; Referring Provider Internal Medicine; Visit Provider Internal Medicine
DX: G35 Multiple sclerosis (principal)
CPT/HCPCS: 97110; 97161; 97530

== ENCOUNTER → 2019-01-13 | Outpatient (CLI) | payer BC, SELFPAY ==
[2018-11-18 13:26] VITALS: BMI 39.6
--- NOTE | 2019-01-13 11:28 | RAD_ITS ---
STUDY: X-RAY - RIGHT FOOT CLINICAL: Pain in toes and forefoot. TECHNIQUE: 4 view(s) of the foot. COMPARISON: None. FINDINGS: There is a plantar calcaneal enthesophyte. There is pes planus. Normal visualized subtalar, talonavicular, calcaneocuboid, tarsal and tarsometatarsal articulations. Normal metatarsi. Normal metatarsophalangeal joint of the great toe. Normal tibial and fibular sesamoid bones. Normal interphalangeal joint of the great toe. Normal phalanges of the great toe. Normal second through fifth metatarsophalangeal joints. Normal interphalangeal joints and phalanges of the lesser toes. There are hammertoe deformities of the lesser toes. The soft tissue structures are unremarkable. RAD/Foot min 3 Views IMPRESSION: Pes planus. Plantar calcaneal enthesophyte. Hammertoe deformities. Electronically Signed: Landon De Guzman MD at 13:41 EDT Tel , Service support ,
== END | disposition home or self-care (01) ==
LOC: HPRAD 11:24
PROVIDERS: Family Provider Internal Medicine; PCP Internal Medicine; Referring Provider Podiatrist; Visit Provider Podiatrist
DX: M19.071 Primary osteoarthritis, right ankle and foot (principal)
CPT/HCPCS: 73630

== ENCOUNTER → 2019-01-26 | Outpatient (CLI) | payer BC, SELFPAY ==
[2019-01-26 08:52] VITALS: BMI 39.6
[2019-01-26 12:18] LABS: Absolute Neutrophil Count 5.2 X10^3/uL (2.0-7.7); Basophil# 0.04 X10^3/uL; Basophil% 0.4 % (0-1); Eosinophil# 0.13 X10^3/uL; Eosinophils% 1.4 % (0-5); Hemoglobin 14.2 g/dl (12.0-15.0); Lymphocyte % 32.1 % (19-41); Mean Corpuscular Volume 96.8 fL (81-99); Mean Platelet Vol. 9.4 fl (6.2-12.0); Monocyte# 0.78 X10^3/uL; Monocyte% 8.6 % (0-10); Neutrophil # 5.17 X10^3/uL (2.7-7.7); Neutrophil % 57.3 % (47-70); Platelet Count 338 K/mm3 (150-450); RBC Distribution Width CV 13.3 % (11.6-14.6); RBC Distribution Width SD 46.2 fl (35.1-43.9); Red Blood Count 4.44 M/mm3 (4.2-5.4)
[2019-01-26 12:22] LABS: POSITIVE COUNT NO; POSITIVE DIFFERENTIAL NO; POSITIVE MORPHOLOGY NO
== END | disposition home or self-care (01) ==
LOC: BIMLAB 09:32
PROVIDERS: Family Provider Internal Medicine; Visit Provider Internal Medicine
DX: K92.2 Gastrointestinal hemorrhage, unspecified (principal)
CPT/HCPCS: 36415; 85025

== ENCOUNTER → 2019-03-25 | Outpatient (CLI) | payer BC, SELFPAY ==
[2019-03-09 17:17] VITALS: BMI 37.9
--- NOTE | 2019-03-25 15:12 | BI_ITS ---
MAMMOGRAPHY - BILATERAL SCREENING REASON FOR EXAM: Female, 48 years old. Routine annual screening examination. PERTINENT HISTORY: Non-contributory. TECHNIQUE: Digital bilateral breast dejon (3D mammographic acquisition) in the CC and MLO projections. 2-D mediolateral oblique (MLO) and craniocaudad (CC) views of both breasts were obtained. CAD: Full Field Digital Mammography with Computer Added Detection was performed. COMPARISON: Comparison is made with prior study dated March 24, 2018. FINDINGS: Breast Composition: There are scattered areas of fibroglandular density. There are no dominant masses or suspicious calcifications. Stable appearance of the benign-appearing bilateral axillary lymph nodes. No other significant abnormalities are identified. There has been no significant change since the prior study. BI/SCREEN MAMM (CAD) W/DEJON BILAT IMPRESSION: Stable bilateral screening mammogram. Yearly follow-up mammogram recommended. (A) ASSESSMENT CATEGORY: BIRADS Category 2: Benign. A letter regarding these results will be sent to the patient by the facility within 30 days. Approximately 10% of breast cancers are not detected by mammography. A normal mammogram should not delay biopsy of a clinically suspicious abnormality. [id number] Electronically Signed: Raheem Hood, at 8:26 EDT , Service support ,
== END | disposition home or self-care (01) ==
LOC: OPBI 15:09
PROVIDERS: Family Provider Internal Medicine; PCP Internal Medicine; Referring Provider Nurse Practitioner Family; Visit Provider Nurse Practitioner Family
DX: Z12.31 Encounter for screening mammogram for malignant neoplasm of breast (principal)
CPT/HCPCS: 77063; 77067

== ENCOUNTER → 2019-05-01 08:46 | Outpatient (CLI) | payer BC, SELFPAY ==
[2019-04-08 14:13] VITALS: BMI 37.9
[2019-05-01 09:51] LABS: Free T3 2.4 pg/mL (2.18-3.98); T4 Free Direct 1.13 ng/dL (0.76-1.46); Thyroid Stim Hormone (TSH) 1.56 uIU/mL (0.358-3.74)
== END ==
PROVIDERS: Family Provider Internal Medicine; PCP Internal Medicine; Referring Provider Internal Medicine Endocrinology, Diabetes & Metabolism; Visit Provider Internal Medicine Endocrinology, Diabetes & Metabolism
DX: E66.9 Obesity, unspecified (principal)
CPT/HCPCS: 36415; 84439; 84443; 84481

== ENCOUNTER → 2019-05-18 15:58 | Outpatient (CLI) | payer BC, SELFPAY ==
[2019-04-08 14:13] VITALS: BMI 37.9
== END ==
PROVIDERS: Family Provider Internal Medicine; PCP Internal Medicine
DX: N30.00 Acute cystitis without hematuria (principal)
CPT/HCPCS: 87086; 87088

== ENCOUNTER → 2019-06-07 14:20 | Outpatient (CLI) | payer BC, SELFPAY ==
[2019-06-07 12:00] VITALS: BMI 37.9
[2019-06-07 14:31] LABS: Bacteria 0 SEEN /hpf (None Seen); Mucous, Urine 0 SEEN /hpf (<or=2+); Red Blood Cells-Urine 0 SEEN /hpf (0-5); White Blood Cells 0 SEEN /hpf (0-5)
[2019-06-07 14:43] LABS: Color, Urine Straw (Yellow); Glucose, Dipstick Normal (Normal); Ketone-Dipstick Negative (Negative); Leukocyte Esterase-Dipstick Negative /ul (Negative); Nitrite-Dipstick Negative (Negative); Occult Blood-Urine Negative /ul (Negative); Protein-Dipstick Negative (Negative); Specific Gravity, Urine 1.005 (1.002-1.030); Urine Bilirubin Dipstick Negative (Negative); Urine Clarity Clear (Clear); Urine Urobilinogen Normal (Normal); Urine pH 6.5 (5.0 - 8.0)
[2019-06-07 14:50] LABS: Squamous Epithelial Cells - UA 0-5 SEEN /hpf (5-10)
== END ==
PROVIDERS: Family Provider Internal Medicine; PCP Internal Medicine; Referring Provider Physician Assistant; Visit Provider Physician Assistant
DX: R39.15 Urgency of urination (principal)
CPT/HCPCS: 81001; 87086; 87088

== ENCOUNTER → 2019-06-11 07:31 | Outpatient (CLI) | payer BC, SELFPAY ==
[2019-04-08 14:13] VITALS: BMI 37.9
[2019-06-07 12:00] VITALS: BMI 37.9
--- NOTE | 2019-06-11 07:32 | CT_ITS ---
HISTORY: Left adrenal mass. Follow-up. Lung lavage. Multiple laparoscopies. An mass. Technique: Prior to the use of intravenous contrast contiguous helical images were obtained through the adrenal glands. Following the uneventful ministration of 100 ML of Isovue 300 contiguous helical images were obtained through the adrenal glands. After a 15 minute delayed contiguous helical images were obtained through the adrenal glands. 2-D reformats. 515 images. Comparison study most recently is a CT scan of the adrenal glands dated March 25, 2018 Findings: On the lateral limb of the left adrenal gland, anterior to the left kidney there is a nodule. This nodule measures 3.4 x 2 x 3.3 cm. On the pre-contrast images, centrally, I measure the density of this nodule to be -17 Hounsfield units. The right adrenal gland is without significant nodularity. The gallbladder has been resected. Visualized portions of the liver, spleen, pancreas are normal. The stomach is decompressed. Visualized bowel gas pattern is normal. The aorta and IVC visualized portions are normal. No hydronephrosis. No nephrolithiasis. Contrasted CT scan of the adrenal glands. The left adrenal nodule, on the portal venous phase of imaging, has a density of 34 Hounsfield units. No hepatic enhancing lesions are perceived. The pancreas, spleen, and kidneys enhance homogeneously. No aortic dissection. Visualized portion lung bases demonstrate minimal scarring. Delayed imaging through the adrenal glands. The density of the left adrenal nodule on the 15 minute delay series is 18.5 Hounsfield units. Both kidneys excrete contrast in a nondilated systems. If I measure the left adrenal nodule from March 25, 2018, an attempt to reproduce cursor placement for the measurement of the nodule on the previous study to as closely reproduce the measurements that I did for today's study, I measure the nodule on the previous exam to be 3.4 x 2 x 3 cm. This has not increased in size. CT/Abdomen W/WO IV Contrast IMPRESSION: Stable left adrenal nodule by imaging characteristics consistent with a benign adenoma. Individualized dose optimization techniques were used for this CT. at 2354 Reported and signed by: Sudeep Wright MD Electronically Signed: Sudeep Wright MD at 23:53 EDT Tel , Service support ,
== END ==
PROVIDERS: Family Provider Internal Medicine; PCP Internal Medicine; Referring Provider Internal Medicine Endocrinology, Diabetes & Metabolism; Visit Provider Internal Medicine Endocrinology, Diabetes & Metabolism
DX: E27.8 Other specified disorders of adrenal gland (principal)
CPT/HCPCS: 74170; Q9967

== ENCOUNTER → 2019-08-03 09:05 | Outpatient (CLI) | payer BC, SELFPAY ==
[2019-08-03 08:39] VITALS: BMI 39.3
[2019-08-03 12:40] LABS: ALB/GLOB Ratio 1.1 RATIO (0.9-2.4); AST(SGOT) 14 U/L (15-37); Absolute Neutrophil Count 5.5 X10^3/uL (2.0-7.7); Alanine Aminotransfer ALT/SGPT 18 U/L (13-56); Albumin, Serum 3.8 g/dL (3.2-5.0); Alkaline Phosphatase 89 U/L (45-117); Anion Gap 4 (5-15); BUN 11 mg/dL (7-18); BUN/Creat Ratio 8.7 RATIO (10-20); Basophil# 0.11 X10^3/uL; Calcium,Total 9.5 mg/dL (8.5-10.1); Chloride 108 mmol/L (98-107); Creatinine, Serum 1.26 mg/dL (0.55-1.02); EST Glomerular Filtration Rate 48 mL/min (>60); Eosinophil# 0.14 X10^3/uL; Eosinophils% 1.3 % (0-5); Est Glom Filt Rate - Afr Amer 58 mL/min (>60); Globulin 3.6 g/dL (2.2-4.2); Glucose 97 mg/dL (74-106); Hematocrit 41.8 % (37-47); Hemoglobin 13.5 g/dL (12.0-15.0); Lymphocyte % 39.6 % (19-41); Mean Corp Hgb Conc 32.3 g/dL (32-36); Mean Corpuscular Volume 95.9 fL (81-99); Mean Platelet Vol. 9.2 fl (6.2-12.0); Monocyte# 0.76 X10^3/uL; Neutrophil # 5.49 X10^3/uL (2.7-7.7); Neutrophil % 50.5 % (47-70); Platelet Count 291 K/mm3 (150-450); Potassium 4.6 mmol/L (3.5-5.1); Protein, Total 7.4 g/dL (6.4-8.2); RBC Distribution Width CV 13.4 % (11.6-14.6); RBC Distribution Width SD 47.6 fl (35.1-43.9); Red Blood Count 4.36 M/mm3 (4.2-5.4); Sodium Level 140 mmol/L (136-145); Thyroid Stim Hormone (TSH) 0.37 uIU/mL (0.358-3.74); White Blood Count 10.9 K/mm3 (4.4-11.0)
[2019-08-03 12:45] LABS: NRBC Flagged by Analyzer 1.5 % (0-5)
[2019-08-04 15:17] LABS: Pathologist Review Reviewed
== END ==
PROVIDERS: Family Provider Internal Medicine; PCP Internal Medicine; Visit Provider Internal Medicine
DX: E03.9 Hypothyroidism, unspecified (principal); F32.9 Major depressive disorder, single episode, unspecified
CPT/HCPCS: 36415; 80053; 84443; 85025

== ENCOUNTER → 2019-10-18 12:31 | Outpatient (CLI) | payer BC, SELFPAY ==
[2019-10-18 12:31] VITALS: BMI 39.3
[2019-10-18 13:51] LABS: Absolute Lymphocyte Count 5.95 X10^3/uL (0.83-4.51); Basophil% 0.8 % (0-1); Eosinophil# 0.16 X10^3/uL; Eosinophils% 1.3 % (0-5); Hemoglobin 12.4 g/dL (12.0-15.0); Lymphocyte # 5.95 X10^3/ul (4.0); Lymphocyte % 49.4 % (19-41); Mean Corp Hgb Conc 32.6 g/dL (32-36); Mean Corpuscular Hgb 30.8 pg (27.0-32.0); Mean Corpuscular Volume 94.3 fL (81-99); Mean Platelet Vol. 9.1 fl (6.2-12.0); Monocyte# 0.69 X10^3/uL; Monocyte% 5.7 % (0-10); NRBC Flagged by Analyzer 1.8 % (0-5); Neutrophil # 5.03 X10^3/uL (2.7-7.7); Neutrophil % 41.9 % (47-70); POSITIVE DIFFERENTIAL YES; Platelet Count 265 K/mm3 (150-450); RBC Distribution Width CV 13.9 % (11.6-14.6); RBC Distribution Width SD 48.5 fl (35.1-43.9); Red Blood Count 4.03 M/mm3 (4.2-5.4)
[2019-10-18 13:52] LABS: Differential Indicated SCAN CRITERIA MET
[2019-10-18 14:12] LABS: AST(SGOT) 14 U/L (15-37); Alanine Aminotransfer ALT/SGPT 20 U/L (13-56); Albumin, Serum 3.6 g/dL (3.2-5.0); Alkaline Phosphatase 95 U/L (45-117); Anion Gap 5 (5-15); BUN 13 mg/dL (7-18); BUN/Creat Ratio 11.1 RATIO (10-20); Calcium,Total 9.4 mg/dL (8.5-10.1); Chloride 106 mmol/L (98-107); Creatinine, Serum 1.17 mg/dL (0.55-1.02); EST Glomerular Filtration Rate 52 mL/min (>60); Est Glom Filt Rate - Afr Amer 63 mL/min (>60); Free T3 3.8 pg/mL (2.18-3.98); Globulin 3.7 g/dL (2.2-4.2); Glucose 101 mg/dL (74-106); Potassium 4.3 mmol/L (3.5-5.1); Protein, Total 7.3 g/dL (6.4-8.2); Sodium Level 140 mmol/L (136-145); T4 Free Direct 0.68 ng/dL (0.76-1.46); Thyroid Stim Hormone (TSH) 2.04 uIU/mL (0.358-3.74)
[2019-10-18 14:40] LABS: Reactive Lymphocyte RARE
== END ==
PROVIDERS: PCP Internal Medicine; Visit Provider Internal Medicine Endocrinology, Diabetes & Metabolism
DX: E03.9 Hypothyroidism, unspecified (principal)
CPT/HCPCS: 36415; 80053; 84439; 84443; 84481; 85025

== ENCOUNTER → 2019-11-23 16:53 | Outpatient (CLI) | payer BC, SELFPAY ==
[2019-10-18 12:31] VITALS: BMI 39.3
[2019-11-23 17:46] LABS: Absolute Lymphocyte Count 5.53 X10^3/uL (0.83-4.51); Absolute Neutrophil Count 5.3 X10^3/uL (2.0-7.7); Basophil# 0.09 X10^3/uL; Basophil% 0.8 % (0-1); Eosinophil# 0.15 X10^3/uL; Eosinophils% 1.3 % (0-5); Hemoglobin 12.5 g/dL (12.0-15.0); Lymphocyte # 5.53 X10^3/ul (4.0); Lymphocyte % 47.3 % (19-41); Mean Corp Hgb Conc 32.1 g/dL (32-36); Mean Corpuscular Hgb 30.3 pg (27.0-32.0); Mean Corpuscular Volume 94.7 fL (81-99); Monocyte# 0.59 X10^3/uL; Monocyte% 5.1 % (0-10); NRBC Flagged by Analyzer 1.4 % (0-5); Neutrophil # 5.25 X10^3/uL (2.7-7.7); Neutrophil % 44.9 % (47-70); POSITIVE DIFFERENTIAL YES; Platelet Count 262 K/mm3 (150-450); RBC Distribution Width CV 14.1 % (11.6-14.6); RBC Distribution Width SD 48.6 fl (35.1-43.9); Red Blood Count 4.12 M/mm3 (4.2-5.4); White Blood Count 11.7 K/mm3 (4.4-11.0)
[2019-11-23 17:47] LABS: Differential Indicated SCAN CRITERIA MET
[2019-11-23 18:25] LABS: ALB/GLOB Ratio 1.1 RATIO (0.9-2.4); AST(SGOT) 10 U/L (15-37); Alanine Aminotransfer ALT/SGPT 15 U/L (13-56); Albumin, Serum 3.8 g/dL (3.2-5.0); Alkaline Phosphatase 84 U/L (45-117); Anion Gap 6 (5-15); BUN 14 mg/dL (7-18); BUN/Creat Ratio 11.5 RATIO (10-20); Calcium,Total 9.3 mg/dL (8.5-10.1); Chloride 108 mmol/L (98-107); Creatinine, Serum 1.22 mg/dL (0.55-1.02); EST Glomerular Filtration Rate 50 mL/min (>60); Est Glom Filt Rate - Afr Amer 60 mL/min (>60); Globulin 3.4 g/dL (2.2-4.2); Glucose 107 mg/dL (74-106); Potassium 3.8 mmol/L (3.5-5.1); Protein, Total 7.2 g/dL (6.4-8.2); Sodium Level 141 mmol/L (136-145); Thyroid Stim Hormone (TSH) 1.38 uIU/mL (0.358-3.74)
[2019-11-23 18:35] LABS: HIV - WCH Non-Reactive (Nonreactive); Vitamin B12 389 pg/mL (211-911); Vitamin D,25 Hydroxy 82.8 ng/mL
[2019-11-23 18:42] LABS: Differential Comment SCANNED
[2019-11-25 12:07] LABS: RNP Ab 0.4 AI (0.0-0.9); Smith Ab <0.2 AI (0.0-0.9)
[2019-11-25 14:55] LABS: ANTINUCLEAR ANTIBODIES DIRECT Positive (Negative)
[2019-12-01 09:07] LABS: HEPATITIS B SURFACE AG Negative (Negative); Hepatitis A AB, Total Negative (Negative); Hepatitis A IgM Antibody Negative (Negative); Hepatitis B Core AB IgM Negative (Negative); Hepatitis B Core Ab Total Negative (Negative); Hepatitis C Ab <0.1 s/co ratio (0.0-0.9); QNTFERON TB Mitogen Value > 10.00 IU/mL (.); QNTFERON TB Nil Value 0.03 IU/mL (.); QNTFERON TB1+ Ag Value 0.07 IU/mL (.); QNTFERON TB2+ Ag Value 0.14 IU/mL (.)
[2019-12-01 13:09] LABS: Hep B Surface Antibodies Non Reactive (.); QNTIFERON TB Positive Criteria Negative (Negative)
== END ==
PROVIDERS: PCP Internal Medicine
DX: G35 Multiple sclerosis (principal)
CPT/HCPCS: 36415; 80053; 82306; 82607; 84443; 85025; 86038; 86235; 86480; 86703; 86704; 86705; 86706; 86708; 86709; 86803; 87340; 87798

== ENCOUNTER → 2020-02-16 16:47 | Outpatient (CLI) | payer BC, SELFPAY ==
[2019-12-20 15:34] VITALS: BMI 39.3
[2020-02-16 17:37] LABS: ALB/GLOB Ratio 1.1 RATIO (0.9-2.4); AST(SGOT) 12 U/L (15-37); Alanine Aminotransfer ALT/SGPT 14 U/L (13-56); Albumin, Serum 3.7 g/dL (3.2-5.0); Alkaline Phosphatase 84 U/L (45-117); Anion Gap 5 (5-15); BUN 13 mg/dL (7-18); BUN/Creat Ratio 11.3 RATIO (10-20); Calcium,Total 8.9 mg/dL (8.5-10.1); Chloride 109 mmol/L (98-107); Creatinine, Serum 1.15 mg/dL (0.55-1.02); EST Glomerular Filtration Rate 53 mL/min (>60); Est Glom Filt Rate - Afr Amer 64 mL/min (>60); Free T3 2.8 pg/mL (2.18-3.98); Globulin 3.3 g/dL (2.2-4.2); Glucose 100 mg/dL (74-106); Potassium 4.2 mmol/L (3.5-5.1); Sodium Level 142 mmol/L (136-145); T4 Free Direct 0.71 ng/dL (0.76-1.46); Thyroid Stim Hormone (TSH) 0.97 uIU/mL (0.358-3.74)
== END ==
PROVIDERS: PCP Internal Medicine; Referring Provider Internal Medicine Endocrinology, Diabetes & Metabolism; Visit Provider Internal Medicine Endocrinology, Diabetes & Metabolism
DX: E03.9 Hypothyroidism, unspecified (principal)
CPT/HCPCS: 36415; 80053; 84439; 84443; 84481

== ENCOUNTER → 2020-04-27 07:03 | Outpatient (CLI) | payer BC, SELFPAY ==
[2019-12-20 15:34] VITALS: BMI 39.3
--- NOTE | 2020-04-27 07:03 | BI_ITS ---
MAMMOGRAPHY - BILATERAL SCREENING REASON FOR EXAM: Female, 49 years old. Routine annual screening examination. PERTINENT HISTORY: Non-contributory. TECHNIQUE: Digital bilateral breast dejon (3D mammographic acquisition) in the CC and MLO projections. 2-D mediolateral oblique (MLO) and craniocaudad (CC) views of both breasts were obtained. CAD: Full Field Digital Mammography with Computer Added Detection was performed. COMPARISON: Comparison is made with prior examination dated 03/25/2019 and 03/24/2018. FINDINGS: Breast Composition: There are scattered areas of fibroglandular density. There are no dominant masses or suspicious calcifications. Stable benign-appearing bilateral axillary lymph nodes. No other significant abnormalities are identified. There has been no significant change since the prior study. BI/SCREEN MAMM (CAD) W/DEJON BILAT IMPRESSION: Stable bilateral screening mammogram. Yearly follow-up mammogram recommended. (A) ASSESSMENT CATEGORY: BIRADS Category 2: Benign. A letter regarding these results will be sent to the patient by the facility within 30 days. Approximately 10% of breast cancers are not detected by mammography. A normal mammogram should not delay biopsy of a clinically suspicious abnormality. [id number] Electronically Signed: Raheem Hood, at 8:59 EDT , Service support ,
== END ==
PROVIDERS: PCP Internal Medicine; Referring Provider Nurse Practitioner Family; Visit Provider Nurse Practitioner Family
DX: Z12.31 Encounter for screening mammogram for malignant neoplasm of breast (principal)
CPT/HCPCS: 77063; 77067

== ENCOUNTER 2020-12-20 13:10 | Emergency (ER) | payer OTHER, SELFPAY ==
[2020-12-13 10:40] VITALS: BMI 37.9
[2020-12-20] VITALS (8 sets, daily range): BP systolic 113–168; BP diastolic 52–88; PULSE 42–59; RESP 13–17; TEMP 36.3; O2SAT 97–98; BMI 37.9
--- NOTE | 2020-12-20 13:23 | NURSING ---
NO OLD EKGS
--- NOTE | 2020-12-20 13:46 | EKG12_ITS ---
Test Reason : CP Blood Pressure : / mmHG Vent. Rate : 052 BPM Atrial Rate : 052 BPM P-R Int : 142 ms QRS Dur : 084 ms QT Int : 432 ms P-R-T Axes : 050 018 046 degrees QTc Int : 401 ms Sinus bradycardia Otherwise normal ECG Confirmed by LIVIER GARRISON, CHERYL ([id number]), newspaper or periodical editor CHANTE GUEVARA ([id number]) on 12/22/2020 10:03:12 AM Referred By: ROSAURA/JERMAINE Confirmed By:CHERYL MAIER MD
--- NOTE | 2020-12-20 13:48 | EDS_ITS ---
HPI History of Present Illness Chief Complaint: Chest Pain Informant: patient Onset/Context/Timing Onset: Yesterday Activity at onset: gradual Timing: Continuous Quality: Positive for Aching Location: Left Parasternal and Left Chest Worsened By: Movement of Arm Associated Symptoms: Positive for Nausea, Diaphoresis, Dyspnea, Lightheadedness and Acid Reflux; Negative for Vomiting, Cough, Fever and Palpitations Narrative Patient presents with chest pain that began yesterday evening. Patient states the pain is over the left side of her chest. Patient states the pain radiates into her left jaw and left arm. Patient admits to nausea but denies any vomiting. Patient states pain is worse with movement of her left arm. CVD Risk Factors: Positive for Diabetes and Smoking; Negative for Hypertension, Hypercholesterolemia and Family History 1' </=55 PE Risk Factors: Negative for Recent Travel/Surgery, Recent Immobilization, Prior DVT or PE and Cancer [facility] Medical History (Updated 12/20/20 @ 15:[address] Allan Claire, DO) Anemia Arthritis Asthma Back problem Bradycardia Collapse of left lung Depression Diverticulitis Essential (primary) hypertension GERD (gastroesophageal reflux disease) History of pneumonia Hormone deficiency Hypothyroidism Low back pain Multiple sclerosis (10/30/16) Neuropathy Obesity (BMI 30-39.9) Osteopenia Pre-diabetes Rectocele Urinary urgency Home Medications baclofen 10 mg tablet 10 mg PO TID 09/19/17 [History Last Taken 12/20/20] biotin 1,000 mcg chewable tablet 2,000 mcg PO DAILY ea 09/19/17 [History Last Taken 12/19/20] dalfampridine 10 mg tablet,extended release,12 hr 10 mg PO Q12H 09/19/17 [History Last Taken 12/20/20] folic acid 800 mcg tablet 800 mcg PO DAILY 09/19/17 [History Last Taken 12/19/20] levothyroxine 75 mcg tablet 75 mcg PO DAILY tab 09/19/17 [History Last Taken 12/20/20] liraglutide 0.6 mg/0.1 mL (18 mg/3 mL) subcutaneous pen injector 1.8 mg SC DAILY 09/19/17 [History Last Taken 12/19/20] modafinil 200 mg tablet 200 mg PO DAILY 09/19/17 [History Last Taken 12/20/20] cyanocobalamin (vitamin B-12) 1,000 mcg/mL injection solution 1,000 mcg IM PATEL 28 Days #4 ml 09/21/18 [History Last Taken 2 Weeks Ago ~12/06/20] nystatin 100,000 unit/gram topical powder 1 applic TOPICAL BID #60 g 04/08/19 [Rx Last Taken Unknown] triamcinolone acetonide 55 mcg nasal spray aerosol 1 spray INTRANASAL DAILY 04/08/19 [History Last Taken Unknown] liothyronine 5 mcg tablet 10 mcg PO DAILY tab 08/03/19 [History Last Taken 12/20/20] hydrocortisone 2.5 % topical cream 1 applic TOPICAL BID PRN #30 g 09/13/19 [Rx Last Taken Unknown] natalizumab 300 mg/15 mL intravenous solution 300 mg IV QMONTH 09/13/19 [History Last Taken 3 Weeks Ago ~11/29/20] polyethylene glycol 3350 17 gram/dose oral powder 17 g PO DAILY 09/13/19 [History Last Taken Unknown] albuterol sulfate 90 mcg/actuation aerosol inhaler 1 - 2 puff INHALATION Q6H PRN #8.5 g 08/04/20 [Rx Last Taken Unknown] acyclovir 200 mg capsule 200 mg PO BID cap 12/13/20 [History Last Taken 12/19/20] bupropion HCl 450 mg 24 hr tablet, extended release 450 mg PO QAM #30 tablet 12/13/20 [Rx Last Taken 12/20/20] cholecalciferol (vitamin D3) 5,000 unit PO DAILY 12/20/20 [History Last Taken 12/20/20] estrogens-methyltestosterone 1 tab PO DAILY 12/20/20 [History Last Taken 12/20/20] sertraline 200 mg PO DAILY 12/20/20 [History Last Taken 12/20/20] Allergy/AdvReac Type Severity Reaction Status Date / Time doxycycline Allergy Vomiting Verified 12/20/20 13:13 latex Allergy Rash Verified 12/20/20 13:13 prochlorperazine Allergy Other Verified 12/20/20 13:13 [From Compazine] Family History Mother Alcoholism Anemia Asthma COPD (chronic obstructive pulmonary disease) Arthritis Kidney disease Mental disorder Respiratory abnormality CVA (cerebral vascular accident) Grandfather Angina pectoris Myocardial infarction Grandmother Arthritis Hypertension Osteoporosis CVA (cerebral vascular accident) Sister Crohn disease Bowel disease Uncle Parkinsons disease Surgical History History of bronchoscopy History of hysterectomy History of rectocele History of tonsillectomy Hx of cholecystectomy Social History (Updated 12/13/20 @ 13:06 by ANDREA Goldman) Smoking Status: Never smoker alcohol intake: never substance use type: does not use what type of physical activity do you participate in: none EXAM Physical Exam Const Vital Signs: 12/20/20 13:11 12/20/20 13:22 12/20/20 13:53 Temperature 97.3 F L Temperature Source Temporal Pulse Rate 59 L 52 L Respiratory Rate 16 Respiratory Effort Short of Breath Blood Pressure 168/88 H 156/78 H Blood Pressure Mean 114 Pulse Ox 98 Oxygen Delivery Method Room Air 12/20/20 13:57 12/20/20 14:02 12/20/20 14:14 Temperature Temperature Source Pulse Rate 45 L 46 L Respiratory Rate Respiratory Effort Blood Pressure 117/67 113/70 Blood Pressure Mean Pulse Ox 98 Oxygen Delivery Method Room Air 12/20/20 14:15 12/20/20 15:07 Temperature Temperature Source Pulse Rate 45 L 44 L Respiratory Rate 16 13 Respiratory Effort Blood Pressure 123/64 H 134/71 H Blood Pressure Mean 83 92 Pulse Ox 98 97 Oxygen Delivery Method Room Air Room Air Heart Score History: Moderately Suspicious ECG: Normal Age: >45 - <65 years Risk Factors: 1 or 2 Risk Factors Troponin: </= Normal Limit Score: 3 MDM MDM MDM Narrative Medical decision making narrative: EKG showed sinus bradycardia with a rate of 52. There are no acute changes. D-dimer came back slightly elevated at 0.89. CBC, basic metabolic profile, troponin, PT with INR, PTT were all essentially within normal limits. Portable 1 view chest x-ray was obtained. On my interpretation, lung rubio are clear. There is normal cardiac silhouette. Bony thorax is normal. There is no acute process noted. Radiologist also interpreted the x-ray and agrees. Lab Data Attestation: I reviewed the patient's lab results. Labs: Laboratory Results - last 24 hr 12/20/20 12/20/20 12/20/20 13:26 13:26 13:26 WBC 10.8 RBC 4.28 Hgb 13.2 Hct 41.6 MCV 97.2 MCH 30.8 MCHC 31.7 L RDW Std Deviation 48.0 H RDW Coeff of Rigo 13.3 Plt Count 240 MPV 9.0 Immature Gran % (Auto) 0.600 Neut % (Auto) 38.7 L Lymph % (Auto) 53.6 H Asotin % (Auto) 5.4 Eos % (Auto) 1.0 Baso % (Auto) 0.7 Absolute Neuts (auto) 4.2 Absolute Lymphs (auto) 5.81 H Nucleated RBC % 0.8 Differential Comment COMMENT PT 12.9 INR 1.0 APTT 27.2 D-Dimer Quant (PE/DVT) 0.89 H* Sodium 141 Potassium 4.0 Chloride 108 H Carbon Dioxide 28.0 Anion Gap 5 BUN 12 Creatinine 1.23 H Estim Creat Clear Calc 44.76 Est GFR (MDRD) Af Amer 59 L Est GFR (MDRD) Non-Af 49 L BUN/Creatinine Ratio 9.8 L Glucose 92 Calcium 9.2 Troponin I < 0.015 Radiography Chest X-Ray - ED: 1 View, Read by ED Physician, Read by Radiologist, No Acute Disease and Chronic Changes Diagnostic Testing: Radiology Impression Chest X-Ray 12/20/20 13:50 IMPRESSION: Hyperinflation. Stable minimal linear scarring at the left lung base. Electronically Signed: Raheem Hood MD at 14:11 EDT , Service support , Chest CTA 12/20/20 14:18 IMPRESSION: Normal CTA chest examination, without a demonstrated pulmonary embolism or arterial dissection. Electronically Signed: Raheem Hood MD at 14:45 EDT , Service support , EKG Initial EKG: Attestation: I personally reviewed and interpreted this EKG as follows: Interpretation: No Acute Injury Pattern and Sinus Bradycardia (52) Discharge Plan Triage Chief Complaint: Chest Pain ED Provider: Allan Claire Dx/Rx/DC Orders Clinical Impression: Chest pain Instructions: ED Chest Pain, Uncertain Cause Prescriptions: No Action biotin 1,000 mcg tablet,chewable 2,000 mcg PO DAILY RF: 0 folic acid 800 mcg tablet 800 mcg PO DAILY RF: 0 dalfampridine [Ampyra] 10 mg tablet extended release 12 hr 10 mg PO Q12H RF: 0 baclofen 10 mg tablet 10 mg PO TID RF: 0 modafinil 200 mg tablet 200 mg PO DAILY RF: 0 levothyroxine [Synthroid] 75 mcg tablet 75 mcg PO DAILY RF: 0 liraglutide [Victoza 2-Jian] 0.6 mg/0.1 mL (18 mg/3 mL) pen injector 1.8 mg SC DAILY RF: 0 cyanocobalamin (vitamin B-12) 1,000 mcg/mL solution 1,000 mcg IM PATEL 28 Days Qty: 4 RF: 0 triamcinolone acetonide [Nasacort] 55 mcg aerosol,spray 1 spray INTRANASAL DAILY RF: 0 nystatin 100,000 unit/gram powder 1 applic TOPICAL BID Qty: 60 RF: 4 liothyronine [Cytomel] 5 mcg tablet 10 mcg PO DAILY RF: 0 Tysabri 300 mg/15 mL solution 300 mg IV QMONTH RF: 0 polyethylene glycol 3350 [Miralax] 17 gram/dose powder 17 g PO DAILY RF: 0 hydrocortisone 2.5 % cream 1 applic TOPICAL BID PRN (Reason: rash) Qty: 30 RF: 2 acyclovir 200 mg capsule 200 mg PO BID RF: 0 bupropion HCl 450 mg tablet extended release 24 hr 450 mg PO QAM Qty: 30 RF: 1 estrogens-methyltestosterone 0.625-1.25 mg tablet 1 tab PO DAILY RF: 0 sertraline 100 mg tablet 200 mg PO DAILY RF: 0 cholecalciferol (vitamin D3) 125 mcg (5,000 unit) capsule 5,000 unit PO DAILY RF: 0 albuterol sulfate [ProAir HFA] 90 mcg/actuation HFA aerosol inhaler 1 - 2 puff inhalation Q6H PRN (Reason: shortness of breath or wheezing) Qty: 8.5 RF: 1 Primary Care Provider: Keith Wu Referrals: Keith Wu MD [Primary Care Provider] - 5-7 Days Disposition Disposition: Home, self care
--- NOTE | 2020-12-20 13:50 | RAD_ITS ---
STUDY: X-RAY CHEST REASON FOR EXAM: Female, 50 years old. One day history of chest pain with radiation to the left arm and jaw.. TECHNIQUE: Single AP portable view of the chest. COMPARISON: Comparison is made with prior study dated 10/10/2018. FINDINGS: EKG electrodes are seen. Hyperinflation. Stable minimal linear scarring at the left lung base. There is no demonstrated pleural abnormality. Normal size heart. Normal mediastinum and charbel. Normal visualized pulmonary arteries. There is atherosclerotic tortuosity of the aortic arch and descending thoracic aorta. Normal visualized thoracic spine. Normal visualized ribs, clavicles, and shoulders. There is no demonstrated abnormality of the visualized soft tissue structures of the upper abdomen. RAD/Chest 1 View (Portable) IMPRESSION: Hyperinflation. Stable minimal linear scarring at the left lung base. Electronically Signed: Raheem Hood MD at 14:11 EDT , Service support ,
[2020-12-20] MEDS: Aspirin 81 MG TAB.CHEW 324 MG PO (13:53)
[2020-12-20] MEDS: Nitroglycerin SL (ED/IMG/CATH) 0.4 MG TABLET SL ×3 (13:53→14:14)
[2020-12-20 13:56] LABS: Absolute Lymphocyte Count 5.81 X10^3/uL (0.83-4.51); Absolute Neutrophil Count 4.2 X10^3/uL (2.0-7.7); Basophil# 0.08 X10^3/uL; Basophil% 0.7 % (0-1); Eosinophil# 0.11 X10^3/uL; Hematocrit 41.6 % (37-47); Hemoglobin 13.2 g/dL (12.0-15.0); Lymphocyte # 5.81 X10^3/ul (0.83-4.51); Lymphocyte % 53.6 % (19-41); Mean Corp Hgb Conc 31.7 g/dL (32-36); Mean Corpuscular Hgb 30.8 pg (27.0-32.0); Mean Corpuscular Volume 97.2 fL (81-99); Monocyte# 0.59 X10^3/uL; Monocyte% 5.4 % (0-10); NRBC Flagged by Analyzer 0.8 % (0-5); Neutrophil # 4.18 X10^3/uL (2.7-7.7); Neutrophil % 38.7 % (47-70); POSITIVE DIFFERENTIAL YES; POSITIVE MORPHOLOGY YES; Platelet Count 240 K/mm3 (150-450); RBC Distribution Width CV 13.3 % (11.6-14.6); Red Blood Count 4.28 M/mm3 (4.2-5.4); White Blood Count 10.8 K/mm3 (4.4-11.0)
[2020-12-20 13:57] LABS: Differential Indicated SCAN CRITERIA MET
[2020-12-20 14:03] LABS: Partial Thromboplast Time 27.2 Seconds (24.1-36.2); Prothrombin Time (Protime)PT. 12.9 SECONDS (11.7-14.9)
[2020-12-20 14:06] LABS: D-Dimer Quantitative (DVT/PE) 0.89 FEU/ug/m (0.27-0.49)
[2020-12-20 14:08] LABS: Anion Gap 5 (5-15); BUN 12 mg/dL (7-18); BUN/Creat Ratio 9.8 RATIO (10-20); Calcium,Total 9.2 mg/dL (8.5-10.1); Chloride 108 mmol/L (98-107); Creatinine, Serum 1.23 mg/dL (0.55-1.02); EST Glomerular Filtration Rate 49 mL/min (>60); Est Glom Filt Rate - Afr Amer 59 mL/min (>60); Estimated Creatinine Clearance 44.76 ml/min; Glucose 92 mg/dL (74-106); Sodium Level 141 mmol/L (136-145)
--- NOTE | 2020-12-20 14:18 | CT_ITS ---
STUDY: CTA CHEST REASON FOR EXAM: Female, 50 years old. Elevated D-dimer. Left arm pain. Hypertension. RADIATION DOSAGE (If Supplied By Facility): CTDIvol = ( 11.36 ) mGy, DLP = ( 493.71 ) mGycm TECHNIQUE: The examination was performed with the intravenous administration of IV 100mL [id number]-[id number]. Post-processing of the angiographic images was performed, with multiplanar reformation and 3D reconstruction. Individualized dose optimization techniques were used for this CT. COMPARISON: Comparison is made with prior study dated 05/06/2018 and prior chest radiograph done earlier in the day. FINDINGS: Normal enhancement of the main pulmonary artery and right and left pulmonary arteries. Normal enhancement of the bilateral peripheral pulmonary arteries. There is no demonstrated pulmonary embolism. Normal thoracic aorta and visualized great vessels. There is no demonstrated aortic dissection. Normal heart and pericardium. Normal mediastinum. Normal hilar regions. Normal visualized trachea and bronchi. The lungs are well expanded. Minimal increased linear markings in the lingular segment of the left upper lobe suggests scarring. Normal pleura. Normal chest wall structures. Normal osseous structures. The patient is status post cholecystectomy. CT/CTA Chest W/WO Contrast IMPRESSION: Normal CTA chest examination, without a demonstrated pulmonary embolism or arterial dissection. Electronically Signed: Raheem Hood MD at 14:45 EDT , Service support ,
== END 2020-12-20 15:56 | disposition home or self-care (01) ==
PROVIDERS: Emergency Provider Emergency Medicine; PCP Internal Medicine
DX: R07.89 Other chest pain (principal); R11.0 Nausea; R79.89 Other specified abnormal findings of blood chemistry; I10 Essential (primary) hypertension; J45.909 Unspecified asthma, uncomplicated; F32.9 Major depressive disorder, single episode, unspecified; M19.90 Unspecified osteoarthritis, unspecified site; K21.9 Gastro-esophageal reflux disease without esophagitis; E03.9 Hypothyroidism, unspecified; G35 Multiple sclerosis; G62.9 Polyneuropathy, unspecified; E66.9 Obesity, unspecified; Z68.37 Body mass index [BMI] 37.0-37.9, adult; M85.80 Other specified disorders of bone density and structure, unspecified site; Z86.2 Personal history of diseases of the blood and blood-forming organs and certain disorders involving the immune mechanism; Z87.19 Personal history of other diseases of the digestive system; Z87.01 Personal history of pneumonia (recurrent); Z79.899 Other long term (current) drug therapy
CPT/HCPCS: 71045; 71275; 80048; 84484; 85025; 85379; 85610; 85730; 93005; 99285; Q9967; A4216

== ENCOUNTER → 2021-01-13 08:32 | Outpatient (CLI) | payer OTHER, SELFPAY ==
[2021-01-10 10:54] VITALS: BMI 38.2
--- NOTE | 2021-01-13 08:39 | RAD_ITS ---
STUDY: X-RAY - LUMBAR SPINE REASON FOR EXAM: Female, 50 years old. Chronic Back Pain TECHNIQUE: 5 view(s) of the lumbar spine were obtained. COMPARISON: 02/28/2018 FINDINGS: Normal lumbar lordosis. There is no substantial scoliosis. There is a normal alignment of the vertebrae. There is multilevel endplate spondylosis of the lumbar vertebrae. Loss of disc height at multiple levels, mild. Moderate facet arthropathy L4-L5 and L5-S1. There is no demonstrated fracture. The soft tissue structures are unremarkable. RAD/L/S Spine Min 4 Views IMPRESSION: Facet degenerative changes, as above, not substantially changed since 2018. Electronically Signed: Daniel Hill MD ([place]) at 15:37 EDT , Service support ,
== END ==
PROVIDERS: PCP Internal Medicine; Visit Provider Internal Medicine
DX: M54.9 Dorsalgia, unspecified (principal); G89.29 Other chronic pain
CPT/HCPCS: 72110

== ENCOUNTER 2021-01-23 09:02 | Observation (INO) | payer OTHER, SELFPAY ==
[2021-01-10 10:54] VITALS: BMI 38.2
[2021-01-23] VITALS (11 sets, daily range): BP systolic 108–205; BP diastolic 58–91; PULSE 48–85; RESP 14–18; TEMP 36.3–36.6; O2SAT 96–99; BMI 36.7; BMI 37.9
--- NOTE | 2021-01-23 09:13 | EKG12_ITS ---
Test Reason : Blood Pressure : / mmHG Vent. Rate : 047 BPM Atrial Rate : 047 BPM P-R Int : 142 ms QRS Dur : 086 ms QT Int : 456 ms P-R-T Axes : 058 024 043 degrees QTc Int : 403 ms Sinus bradycardia Otherwise normal ECG Confirmed by LIVIER GARRISON, CHERYL ([id number]), farm implement mechanic CHANTE GUEVARA ([id number]) on 01/24/2021 1:17:34 PM Referred By: KATHARINA Confirmed By:CHERYL MAIER MD
--- NOTE | 2021-01-23 09:13 | RAD_ITS ---
STUDY: X-RAY CHEST REASON FOR EXAM: Female, 50 years old. Chest pain TECHNIQUE: Single AP portable view of the chest. COMPARISON: Comparison is made with prior study dated 12/20/2020. FINDINGS: EKG electrodes are seen. The lungs are clear and expanded. There is no demonstrated pleural abnormality. There is moderate cardiac enlargement. Normal mediastinum and charbel. Normal visualized pulmonary arteries. There is atherosclerotic tortuosity of the aortic arch and descending thoracic aorta. Normal visualized thoracic spine. Normal visualized ribs, clavicles, and shoulders. There is no demonstrated abnormality of the visualized soft tissue structures of the upper abdomen. RAD/Chest 1 View (Portable) IMPRESSION: Cardiomegaly. The lungs are clear. Electronically Signed: Raheem Hood MD at 9:54 EDT , Service support ,
--- NOTE | 2021-01-23 09:15 | ED.VIS.CHEST ---
HPI History of Present Illness Chief Complaint: Chest Pain Detail of Chief Complaint: Chest pain that started about an hour ago Informant: patient Onset/Context/Timing Activity at onset: sudden Current Severity: 9/10 Maximum Severity: 9/10 Relieved By: Nothing Narrative Narrative: Patient presents to the emergency department complaint of chest pain that started an hour ago. She describes it as retrosternal and crushing. She states that it can goes up her neck into both ears. She feels somewhat short of breath and nauseated. Patient tried calling EMS but forgot to hit send on her phone. She tried some Tums without any relief. She has never had pain quite like this before. Patient states that a couple weeks ago she had some pain in her left side of her chest and was seen in the ER and is scheduled to have an outpatient stress test on 29 January. Patient has no heart history. She is a smoker. Currently rates her pain a 9 out of 10. Recent Illness/Hospitalization: No PE Risk Factors: Negative for Recent Travel/Surgery and Recent Immobilization [facility] Medical History (Updated 01/23/21 @ 11:[address] Maegan Pan, ) Anemia Arthritis Asthma Back problem Bradycardia Chest pain Chronic back pain Collapse of left lung Depression Diverticulitis Essential (primary) hypertension GERD (gastroesophageal reflux disease) History of pneumonia Hormone deficiency Hypothyroidism Low back pain Multiple sclerosis (10/30/16) Neuropathy Obesity (BMI 30-39.9) Osteopenia Pre-diabetes Rectocele Urinary urgency Home Medications baclofen 10 mg tablet 10 mg PO TID 09/19/17 [History Last Taken 12/20/20] biotin 1,000 mcg chewable tablet 2,000 mcg PO DAILY ea 09/19/17 [History Last Taken 12/19/20] dalfampridine 10 mg tablet,extended release,12 hr 10 mg PO Q12H 09/19/17 [History Last Taken 12/20/20] folic acid 800 mcg tablet 800 mcg PO DAILY 09/19/17 [History Last Taken 12/19/20] levothyroxine 75 mcg tablet 75 mcg PO DAILY tab 09/19/17 [History Last Taken 12/20/20] liraglutide 0.6 mg/0.1 mL (18 mg/3 mL) subcutaneous pen injector 1.8 mg SC DAILY 09/19/17 [History Last Taken 12/19/20] modafinil 200 mg tablet 200 mg PO DAILY 09/19/17 [History Last Taken 12/20/20] cyanocobalamin (vitamin B-12) 1,000 mcg/mL injection solution 1,000 mcg IM PATEL 28 Days #4 ml 09/21/18 [History Last Taken 2 Weeks Ago ~12/06/20] nystatin 100,000 unit/gram topical powder 1 applic TOPICAL BID #60 g 04/08/19 [Rx Last Taken Unknown] triamcinolone acetonide 55 mcg nasal spray aerosol 1 spray INTRANASAL DAILY 04/08/19 [History Last Taken Unknown] liothyronine 5 mcg tablet 10 mcg PO DAILY tab 08/03/19 [History Last Taken 12/20/20] hydrocortisone 2.5 % topical cream 1 applic TOPICAL BID PRN #30 g 09/13/19 [Rx Last Taken Unknown] natalizumab 300 mg/15 mL intravenous solution 300 mg IV QMONTH 09/13/19 [History Last Taken 3 Weeks Ago ~11/29/20] polyethylene glycol 3350 17 gram/dose oral powder 17 g PO DAILY PRN 09/13/19 [History Last Taken Unknown] albuterol sulfate 90 mcg/actuation aerosol inhaler 1 - 2 puff INHALATION Q6H PRN #8.5 g 08/04/20 [Rx Last Taken Unknown] acyclovir 200 mg capsule 200 mg PO BID cap 12/13/20 [History Last Taken 12/19/20] bupropion HCl 450 mg 24 hr tablet, extended release 450 mg PO QAM #30 tablet 12/13/20 [Rx Last Taken 12/20/20] cholecalciferol (vitamin D3) 5,000 unit PO DAILY 12/20/20 [History Last Taken 12/20/20] estrogens-methyltestosterone 1 tab PO DAILY 12/20/20 [History Last Taken 12/20/20] sertraline 200 mg PO DAILY 12/20/20 [History Last Taken 12/20/20] topiramate [Topamax] 50 mg PO BID 12/20/20 [History Last Taken 12/20/20] amlodipine 5 mg PO DAILY PRN 01/23/21 [History Last Taken Unknown] gabapentin 100 mg PO TID 01/23/21 [History Last Taken Unknown] Allergy/AdvReac Type Severity Reaction Status Date / Time doxycycline Allergy Vomiting Verified 01/23/21 09:03 latex Allergy Rash Verified 01/23/21 09:03 prochlorperazine Allergy Other Verified 01/23/21 09:03 [From Compazine] Family History Mother Alcoholism Anemia Asthma COPD (chronic obstructive pulmonary disease) Arthritis Kidney disease Mental disorder Respiratory abnormality CVA (cerebral vascular accident) Grandfather Angina pectoris Myocardial infarction Grandmother Arthritis Hypertension Osteoporosis CVA (cerebral vascular accident) Sister Crohn disease Bowel disease Uncle Parkinsons disease Surgical History History of bronchoscopy History of hysterectomy History of rectocele History of tonsillectomy Hx of cholecystectomy Social History Smoking Status: Current every day smoker tobacco type: cigarettes alcohol intake: never substance use type: does not use what type of physical activity do you participate in: none ROS ROS ED Review of Systems ROS Unobtainable: other Constitutional Constitutional ED: Reports lethargy; Denies chills, fever(s), sweats or weight loss Eyes Eyes: Denies blurry vision, change in vision or diplopia ENT ENT ED: Denies rhinorrhea or sore throat Cardiovascular Cardiovascular: Reports chest pain and racing heartbeat; Denies orthopnea Respiratory/Chest Respiratory/Chest: Reports dyspnea on exertion; Denies cough, orthopnea or sputum Gastrointestinal Gastrointestinal: Reports nausea; Denies abdominal pain, diarrhea or vomiting Genitourinary Genitourinary ED: Denies dysuria, hematuria or urinary frequency Musculoskeletal Musculoskeletal: Denies arthralgias, back pain, myalgias or neck pain Integumentary Denies abscess, Abrasions or rash Neurologic Neurologic: Denies headache(s) or weakness Psychiatric Psychiatric: Denies anxiety, depression or suicidal thoughts Endocrine Endocrinology: Denies polydipsia, polyphagia or polyuria Hematologic/Lymphatic Hematologic/Lymphatic: Denies easy bleeding, easy bruising or lymphadenopathy Allergic/Immunologic Allergic/Immunologic ED: Denies mouth swelling, tongue swelling or urticaria EXAM Physical Exam Const Vital Signs: 01/23/21 09:03 01/23/21 09:06 01/23/21 09:13 Temperature 97.3 F L Temperature Source Oral Pulse Rate 85 Respiratory Rate 14 Respiratory Effort Non-Labored Blood Pressure 205/91 H Blood Pressure Mean 129 Pulse Ox 98 Oxygen Delivery Method Room Air Room Air 01/23/21 10:38 01/23/21 11:00 Temperature Temperature Source Pulse Rate 72 51 L Respiratory Rate 16 16 Respiratory Effort Blood Pressure 158/73 H 134/67 H Blood Pressure Mean 101 89 Pulse Ox 98 96 Oxygen Delivery Method Room Air Room Air Positive well nourished and well developed General Appearance ED: well developed and NAD HEENT Reports TM's clear and moist mucous membranes normocephalic and atraumatic; Negative for trauma or tenderness Tympanic Membrane ED: Yes TM's clear Eyes PERRL and EOMs intact bilaterally General Eye ED: Negative for pale conjunctiva or scleral icterus Neck no lymphadenopathy, supple and no JVD General: Negative for tenderness Chest Wall inspection of chest normal and palpation of chest normal Chest: Negative for tenderness Resp normal respiratory effort and clear to auscultation bilaterally Effort and Inspection: Negative for respiratory distress or pain with movement Auscultation: Negative for rhonchi, wheezes or diminished lung sounds Cardio regular rate, regular rhythm, S1 normal heart sound, S2 normal heart sound and no murmurs Peripheral Pulses: pulses 2+ throughout GI normal to inspection, nondistended, normoactive bowel sounds, soft to palpation, non-tender, non-distended and no masses Back/Spine no CVA tenderness and no thoracic nor lumbar tenderness Extremity normal to inspection General Extremety ED: Negative for edema General Extremity: Negative for edema Neuro oriented x3, CN's II-XII intact bilaterally, no sensory deficits noted and gait normal Sensorium / Orientation: awake, alert, oriented to person, oriented to place and oriented to time Motor Exam: strength 5/5 throughout and strength abnormal Psych mental status grossly normal Skin no rashes or lesions noted and no wounds Heart Score History: Highly Suspicious ECG: Normal Age: >45 - <65 years Risk Factors: 1 or 2 Risk Factors Troponin: </= Normal Limit Score: 4 MDM MDM MDM Narrative Medical decision making narrative: Patient placed on a satellite project site monitor on arrival and received aspirin and nitroglycerin which essentially resolved her pain. She had an inch of Nitropaste placed to the anterior chest wall. Case will be discussed with hospitalist evaluate for admission Lab Data Attestation: I reviewed the patient's lab results. Labs: Laboratory Results - last 24 hr 01/23/21 01/23/21 01/23/21 09:10 09:10 09:10 WBC 10.9 RBC 4.35 Hgb 13.5 Hct 41.3 MCV 94.9 MCH 31.0 MCHC 32.7 RDW Std Deviation 47.4 H RDW Coeff of Rigo 13.4 Plt Count 250 MPV 8.8 Immature Gran % (Auto) 0.500 Neut % (Auto) 40.0 L Lymph % (Auto) 51.7 H [place] % (Auto) 5.8 Eos % (Auto) 1.0 Baso % (Auto) 1.0 Absolute Neuts (auto) 4.3 Absolute Lymphs (auto) 5.62 H Nucleated RBC % 0.9 Differential Comment COMMENT D-Dimer Quant (PE/DVT) 0.66 H* Sodium 141 Potassium 4.0 Chloride 110 H Carbon Dioxide 27.0 Anion Gap 4 L BUN 16 Creatinine 1.20 H Estim Creat Clear Calc 47.89 Est GFR (MDRD) Af Amer 61 Est GFR (MDRD) Non-Af 50 L BUN/Creatinine Ratio 13.3 Glucose 111 H Calcium 9.5 Troponin I < 0.015 Radiography Diagnostic Testing: Radiology Impression Chest X-Ray 01/23/21 09:13 IMPRESSION: Cardiomegaly. The lungs are clear. Electronically Signed: Raheem Hood MD at 9:54 EDT , Service support , Chest CTA 01/23/21 09:43 IMPRESSION: Normal CTA chest examination, without a demonstrated pulmonary embolism or arterial dissection. Electronically Signed: Raheem Hood MD at 11:04 EDT , Service support , 1 view chest x-ray obtained interpreted by myself as cardiomegaly otherwise no acute disease process. EKG Initial EKG: Comments: Bradycardia with a ventricular rate of 52 bpm with no acute ST segment changes noted. Discharge Plan Triage Chief Complaint: Chest Pain ED Provider: Maegan Pan Dx/Rx/DC Orders Clinical Impression: Chest pain Prescriptions: No Action biotin 1,000 mcg tablet,chewable 2,000 mcg PO DAILY RF: 0 folic acid 800 mcg tablet 800 mcg PO DAILY RF: 0 dalfampridine [Ampyra] 10 mg tablet extended release 12 hr 10 mg PO Q12H RF: 0 baclofen 10 mg tablet 10 mg PO TID RF: 0 modafinil 200 mg tablet 200 mg PO DAILY RF: 0 levothyroxine [Synthroid] 75 mcg tablet 75 mcg PO DAILY RF: 0 liraglutide [Victoza 2-Jian] 0.6 mg/0.1 mL (18 mg/3 mL) pen injector 1.8 mg SC DAILY RF: 0 cyanocobalamin (vitamin B-12) 1,000 mcg/mL solution 1,000 mcg IM PATEL 28 Days Qty: 4 RF: 0 triamcinolone acetonide [Nasacort] 55 mcg aerosol,spray 1 spray INTRANASAL DAILY RF: 0 nystatin 100,000 unit/gram powder 1 applic TOPICAL BID Qty: 60 RF: 4 liothyronine [Cytomel] 5 mcg tablet 10 mcg PO DAILY RF: 0 Tysabri 300 mg/15 mL solution 300 mg IV QMONTH RF: 0 polyethylene glycol 3350 [Miralax] 17 gram/dose powder 17 g PO DAILY PRN (Reason: Constipation) RF: 0 hydrocortisone 2.5 % cream 1 applic TOPICAL BID PRN (Reason: rash) Qty: 30 RF: 2 acyclovir 200 mg capsule 200 mg PO BID RF: 0 bupropion HCl 450 mg tablet extended release 24 hr 450 mg PO QAM Qty: 30 RF: 1 estrogens-methyltestosterone 0.625-1.25 mg tablet 1 tab PO DAILY RF: 0 sertraline 100 mg tablet 200 mg PO DAILY RF: 0 cholecalciferol (vitamin D3) 125 mcg (5,000 unit) capsule 5,000 unit PO DAILY RF: 0 topiramate [Topamax] 50 mg tablet 50 mg PO BID RF: 0 gabapentin 100 mg Capsule 100 mg PO TID RF: 0 amlodipine 5 mg tablet 5 mg PO DAILY PRN (Reason: htn) RF: 0 albuterol sulfate [ProAir HFA] 90 mcg/actuation HFA aerosol inhaler 1 - 2 puff inhalation Q6H PRN (Reason: shortness of breath or wheezing) Qty: 8.5 RF: 1 Primary Care Provider: Keith Wu Referrals: Keith Wu MD [Primary Care Provider] - Disposition Disposition: Acute Care Hospital [facility]
[2021-01-23 09:21] LABS: Absolute Lymphocyte Count 5.62 X10^3/uL (0.83-4.51); Absolute Neutrophil Count 4.3 X10^3/uL (2.0-7.7); Basophil# 0.11 X10^3/uL; Eosinophil# 0.11 X10^3/uL; Hematocrit 41.3 % (37-47); Hemoglobin 13.5 g/dL (12.0-15.0); Lymphocyte # 5.62 X10^3/ul (0.83-4.51); Lymphocyte % 51.7 % (19-41); Mean Corp Hgb Conc 32.7 g/dL (32-36); Mean Corpuscular Volume 94.9 fL (81-99); Mean Platelet Vol. 8.8 fl (6.2-12.0); Monocyte# 0.63 X10^3/uL; Monocyte% 5.8 % (0-10); NRBC Flagged by Analyzer 0.9 % (0-5); Neutrophil # 4.34 X10^3/uL (2.7-7.7); POSITIVE DIFFERENTIAL YES; POSITIVE MORPHOLOGY YES; Platelet Count 250 K/mm3 (150-450); RBC Distribution Width CV 13.4 % (11.6-14.6); RBC Distribution Width SD 47.4 fl (35.1-43.9); Red Blood Count 4.35 M/mm3 (4.2-5.4); White Blood Count 10.9 K/mm3 (4.4-11.0)
[2021-01-23 09:23] LABS: Differential Indicated SCAN CRITERIA MET
[2021-01-23 09:35] LABS: D-Dimer Quantitative (DVT/PE) 0.66 FEU/ug/m (0.27-0.49)
[2021-01-23] MEDS: Aspirin 81 MG TAB.CHEW 324 MG PO (09:40)
[2021-01-23] MEDS: Nitroglycerin SL (ED/IMG/CATH) 0.4 MG TABLET SL (09:42)
[2021-01-23 09:43] LABS: Anion Gap 4 (5-15); BUN 16 mg/dL (7-18); BUN/Creat Ratio 13.3 RATIO (10-20); Calcium,Total 9.5 mg/dL (8.5-10.1); Chloride 110 mmol/L (98-107); EST Glomerular Filtration Rate 50 mL/min (>60); Est Glom Filt Rate - Afr Amer 61 mL/min (>60); Estimated Creatinine Clearance 47.89 ml/min; Glucose 111 mg/dL (74-106); Sodium Level 141 mmol/L (136-145)
--- NOTE | 2021-01-23 09:43 | CT_ITS ---
STUDY: CTA CHEST REASON FOR EXAM: Female, 50 years old. Chest pain, elevated d-dimer RADIATION DOSAGE (If Supplied By Facility): CTDIvol = ( 12.51 ) mGy, DLP = ( 482.42 ) mGycm TECHNIQUE: The examination was performed with the intravenous administration of IV 100mL Isovue-370. Post-processing of the angiographic images was performed, with multiplanar reformation and 3D reconstruction. Individualized dose optimization techniques were used for this CT. COMPARISON: Comparison is made with prior examination 12/20/2020. FINDINGS: Normal enhancement of the main pulmonary artery and right and left pulmonary arteries. Normal enhancement of the bilateral peripheral pulmonary arteries. There is no demonstrated pulmonary embolism. Normal thoracic aorta and visualized great vessels. There is no demonstrated aortic dissection. Normal heart and pericardium. Normal mediastinum. Normal hilar regions. Normal visualized trachea and bronchi. The lungs are well expanded. Normal pulmonary parenchyma. Normal pleura. Normal chest wall structures. Normal osseous structures. Patient is status post cholecystectomy. CT/CTA Chest W/WO Contrast IMPRESSION: Normal CTA chest examination, without a demonstrated pulmonary embolism or arterial dissection. Electronically Signed: Raheem Hood MD at 11:04 EDT , Service support ,
--- NOTE | 2021-01-23 11:42 | NURSING ---
PCU OBS KATHARINA ANDERSON
[2021-01-23] MEDS: Nitroglycerin Oint 1 INCH PACKET TD (11:57)
[2021-01-23] MEDS: 0.9% Normal Saline 1,000 ML 150 ML IV (11:59)
--- NOTE | 2021-01-23 12:03 | HP.PCM.HOS_ITS ---
HPI - General General Date of Admission: 01/23/21 HPI Narrative DELMER AVILA, is a 50 F with multiple comorbidities as listed below came to ED for chest pain. She described chest pain as pressure-like, 4-6/10 intensity, midsternal with radiation to ears and throat associated with mild shortness of breath, dizziness and diaphoresis. She had chest pain about couple weeks ago which radiated to her left arm and has a scheduled stress test on January 29. Patient does not take aspirin at home and does not have diagnosed coronary artery disease. She has multiple sclerosis on dalfampridine, natalizumab and modafinil; diabetes mellitus type 2 on liraglutide, morbid obesity, hypertension and other cardiac risk factors She also had left lung collapse few years ago and had bronchoscopy by Dr. Terrell. She smokes less than 1 pack/day since teenage. In ED, EKG shows sinus bradycardia at 52 bpm, QTC 390 ms. No significant change from previous EKG of December 20, 2020. First troponin negative. D-dimer elevated. CT angiogram negative for aortic aneurysm/dissection or PE COUNT INCLUDES [facility] Medical History Anemia Arthritis Asthma Back problem Bradycardia Chest pain Chronic back pain Collapse of left lung Depression Diverticulitis Essential (primary) hypertension GERD (gastroesophageal reflux disease) History of pneumonia Hormone deficiency Hypothyroidism Low back pain Multiple sclerosis (10/30/16) Neuropathy Obesity (BMI 30-39.9) Osteopenia Pre-diabetes Rectocele Urinary urgency Home Medications baclofen 10 mg tablet 10 mg PO TID 09/19/17 [History Last Taken 12/20/20] biotin 1,000 mcg chewable tablet 2,000 mcg PO DAILY ea 09/19/17 [History Last Taken 12/19/20] dalfampridine 10 mg tablet,extended release,12 hr 10 mg PO Q12H 09/19/17 [History Last Taken 12/20/20] folic acid 800 mcg tablet 800 mcg PO DAILY 09/19/17 [History Last Taken 12/19/20] levothyroxine 75 mcg tablet 75 mcg PO DAILY tab 09/19/17 [History Last Taken 12/20/20] liraglutide 0.6 mg/0.1 mL (18 mg/3 mL) subcutaneous pen injector 1.8 mg SC DAILY 09/19/17 [History Last Taken 12/19/20] modafinil 200 mg tablet 200 mg PO DAILY 09/19/17 [History Last Taken 12/20/20] cyanocobalamin (vitamin B-12) 1,000 mcg/mL injection solution 1,000 mcg IM PATEL 28 Days #4 ml 09/21/18 [History Last Taken 2 Weeks Ago ~12/06/20] nystatin 100,000 unit/gram topical powder 1 applic TOPICAL BID #60 g 04/08/19 [Rx Last Taken Unknown] triamcinolone acetonide 55 mcg nasal spray aerosol 1 spray INTRANASAL DAILY 04/08/19 [History Last Taken Unknown] liothyronine 5 mcg tablet 10 mcg PO DAILY tab 08/03/19 [History Last Taken 12/20/20] hydrocortisone 2.5 % topical cream 1 applic TOPICAL BID PRN #30 g 09/13/19 [Rx Last Taken Unknown] natalizumab 300 mg/15 mL intravenous solution 300 mg IV QMONTH 09/13/19 [History Last Taken 3 Weeks Ago ~11/29/20] polyethylene glycol 3350 17 gram/dose oral powder 17 g PO DAILY PRN 09/13/19 [History Last Taken Unknown] albuterol sulfate 90 mcg/actuation aerosol inhaler 1 - 2 puff INHALATION Q6H PRN #8.5 g 08/04/20 [Rx Last Taken Unknown] acyclovir 200 mg capsule 200 mg PO BID cap 12/13/20 [History Last Taken 12/19/20] bupropion HCl 450 mg 24 hr tablet, extended release 450 mg PO QAM #30 tablet 12/13/20 [Rx Last Taken 12/20/20] cholecalciferol (vitamin D3) 5,000 unit PO DAILY 12/20/20 [History Last Taken 12/20/20] estrogens-methyltestosterone 1 tab PO DAILY 12/20/20 [History Last Taken 12/20/20] sertraline 200 mg PO DAILY 12/20/20 [History Last Taken 12/20/20] topiramate [Topamax] 50 mg PO BID 12/20/20 [History Last Taken 12/20/20] amlodipine 5 mg PO DAILY PRN 01/23/21 [History Last Taken Unknown] gabapentin 100 mg PO TID 01/23/21 [History Last Taken Unknown] Allergy/AdvReac Type Severity Reaction Status Date / Time doxycycline Allergy Vomiting Verified 01/23/21 09:03 latex Allergy Rash Verified 01/23/21 09:03 prochlorperazine Allergy Other Verified 01/23/21 09:03 [From Compazine] Family History Mother Alcoholism Anemia Asthma COPD (chronic obstructive pulmonary disease) Arthritis Kidney disease Mental disorder Respiratory abnormality CVA (cerebral vascular accident) Grandfather Angina pectoris Myocardial infarction Grandmother Arthritis Hypertension Osteoporosis CVA (cerebral vascular accident) Sister Crohn disease Bowel disease Uncle Parkinsons disease Surgical History History of bronchoscopy History of hysterectomy History of rectocele History of tonsillectomy Hx of cholecystectomy Social History Smoking Status: Current every day smoker tobacco type: cigarettes alcohol intake: never substance use type: does not use what type of physical activity do you participate in: none ROS ROS Narrative Constitutional: Reports fatigue and weakness HEENT: Reports systems reviewed and no addt'l complaints, except as documented Respiratory/Chest: Mild shortness of breath on exertion. Chest pain as described in HPI Gastrointestinal: Denies coffee ground emesis, hematemesis or vomiting Genitourinary: Denies burning urination Musculoskeletal: Lower back pain. Follows pain management Dr. Morrison. Reports joint pain and limited range of motion Neurologic: Right lower extremity weakness and foot drop due to MS. Denies seizure-like activity skin: No ulcer. No rash Endocrinology: Left adrenal mass, follows draftsperson Dr. Cherry. Hypothyroidism. Reports systems reviewed and no addt'l complaints, except as documented Hematologic/Lymphatic: Reports systems reviewed and no addt'l complaints, except as documented Rest 12 ROS are negative except as mentioned in HPI Vital Signs Vital Signs Vital Signs: 01/23/21 09:03 01/23/21 09:06 01/23/21 09:13 Temperature 97.3 F L Temperature Source Oral Pulse Rate 85 Respiratory Rate 14 Respiratory Effort Non-Labored Blood Pressure 205/91 H Blood Pressure Mean 129 Pulse Ox 98 Oxygen Delivery Method Room Air Room Air 01/23/21 10:38 01/23/21 11:00 01/23/21 11:50 Temperature 97.3 F L Temperature Source Oral Pulse Rate 72 51 L 56 L Respiratory Rate 16 16 18 Respiratory Effort Blood Pressure 158/73 H 134/67 H 147/69 H Blood Pressure Mean 101 89 95 Pulse Ox 98 96 99 Oxygen Delivery Method Room Air Room Air 01/23/21 11:57 Temperature Temperature Source Pulse Rate 48 L Respiratory Rate Respiratory Effort Blood Pressure 147/69 H Blood Pressure Mean Pulse Ox Oxygen Delivery Method Weight Weight: 214 lb 1.102 oz Body Mass Index (BMI) 36.7 Physical Exam Narrative General: Alert, Oriented x3, Cooperative HEENT: Atraumatic, PERRLA, EOMI, Normocephalic Oral: No Gingival or Mucosal Lesions/ Ulcerations Neck: Supple, No JVD, Negative Carotid Bruits Lungs: Air entry diminished in bilateral lung bases. No crepitation/rhonchi Cardiovascular: Regular rate, Regular Rhythm, Normal S1, Normal S2, No murmurs Abdomen: Bowel Sounds Present, Soft, Non Tender, Non-Distended : No renal angle tenderness. No suprapubic tenderness. Extremities: No edema, Capillary Refill Less than 3 Seconds Skin: No rashes, No breakdown Musculoskeletal: No Tenderness to Palpation of Joints or Extremities Neurological: Cranial nerves II-XII grossly intact, Deep Tendon Reflexes 2+/4 and Symmetrical, Neuro grossly intact Psych/Mental Status: Normal Affect, Appropriate. Lab / Micro Data Result Diagrams: 01/23/21 09:10 01/23/21 09:10 Labs: Laboratory Results - last 24 hr 01/23/21 01/23/21 01/23/21 09:10 09:10 09:10 WBC 10.9 RBC 4.35 Hgb 13.5 Hct 41.3 MCV 94.9 MCH 31.0 MCHC 32.7 RDW Std Deviation 47.4 H RDW Coeff of Rigo 13.4 Plt Count 250 MPV 8.8 Immature Gran % (Auto) 0.500 Neut % (Auto) 40.0 L Lymph % (Auto) 51.[address] [place] [place] % (Auto) 5.8 Eos % (Auto) 1.0 Baso % (Auto) 1.0 Absolute Neuts (auto) 4.3 Absolute Lymphs (auto) 5.62 H Nucleated RBC % 0.9 Differential Comment COMMENT D-Dimer Quant (PE/DVT) 0.66 H* Sodium 141 Potassium 4.0 Chloride 110 H Carbon Dioxide 27.0 Anion Gap 4 L BUN 16 Creatinine 1.20 H Estim Creat Clear Calc 47.89 Est GFR (MDRD) Af Amer 61 Est GFR (MDRD) Non-Af 50 L BUN/Creatinine Ratio 13.3 Glucose 111 H Calcium 9.5 Troponin I < 0.015 Radiology Impression Chest X-Ray 01/23/21 09:13 IMPRESSION: Cardiomegaly. The lungs are clear. Electronically Signed: Raheem Hood MD at 9:54 EDT , Service support , Chest CTA 01/23/21 09:43 IMPRESSION: Normal CTA chest examination, without a demonstrated pulmonary embolism or arterial dissection. Electronically Signed: Raheem Hood MD at 11:04 EDT , Service support , Assessment & Plan Assessment/Plan (1) Chest pain: (2) Essential (primary) hypertension: (3) Multiple sclerosis: (4) Hypothyroidism: PLAN: This is a 49-year-old female with multiple comorbidities came to ER with atypical chest pain 1. Atypical chest pain: Patient is being admitted in PCU. MING risk score is 2 but has multiple risk factors due to comorbidities and medications. Serial troponin enzymes and EKG as per ACS protocol. Pharmacological nuclear stress test tomorrow a.m. Aspirin 81 mg daily and sublingual nitro as needed. Fasting profile tomorrow a.m. empirically started on atorvastatin 40 mg daily. 2. Diabetes mellitus type 2: A1c tomorrow a.m. Patient on Victoza which is therapeutic patient is correctional sliding scale. Patient states she has prediabetes 3. Multiple sclerosis with urinary urgency and left lower extremity weakness: on dalfampridine, natalizumab and modafinil. Home medications continued except meclizine which she monthly injection. PT and OT to evaluate right lower extremity weakness. Patient follows neurologist is [facility]. 4. Hypothyroidism and hypertension: TSH free T4 tomorrow a.m. Thyroid medications continued. 5. Other multiple comorbidities include chronic back pain, osteopenia, left adrenal adenoma, on hormone replacement therapy for perimenopausal symptoms. Multiple comorbidities complicates the present care and expect difficult and delay recovery Living will/advanced directive/end of life care: Patient does not have living will or advanced directive. Her fianc? is power of civil rights attorney for health. After discussion of benefits/risks procedures involved with full code, DNR CC arrest and DNR CC, the patient opted for full code. Patient does want artificial life support including intubation, tube feed, ventilator and/chest compression, central venous catheter, vasopressor and DC shock if needed during first episode of cardiac arrest but does not want to be continued for prolonged time on life support system. Total time spent in [id number] encounter in discussion of advanced directive 16 minutes. Visit Charges OBSV E&M: 56802 Initial observation care L3 Procedures Hospitalists Procedures: 24980 Advncd Care Plan 30 Min
--- NOTE | 2021-01-23 12:15 | EKG12_ITS ---
Test Reason : CP Blood Pressure : / mmHG Vent. Rate : 052 BPM Atrial Rate : 052 BPM P-R Int : 144 ms QRS Dur : 082 ms QT Int : 420 ms P-R-T Axes : 045 010 039 degrees QTc Int : 390 ms Sinus bradycardia Otherwise normal ECG Confirmed by LIVIER GARRISON, CHERYL ([id number]), web editor CHANTE GUEVARA ([id number]) on 01/25/2021 12:21:48 PM Referred By: PABLO Confirmed By:CHERYL MAIER MD
[2021-01-23 12:18] LABS: Magnesium 2.2 mg/dL (1.6-2.6)
[2021-01-23] MEDS: Baclofen 10 MG Tablet PO ×2 (15:28→22:07)
[2021-01-23] MEDS: Enoxaparin 40 MG/0.4 ML Syringe SC (15:28)
[2021-01-23] MEDS: Gabapentin 100 MG Capsule PO ×2 (15:28→22:07)
[2021-01-23 17:35] LABS: Bedside Glucose 111 mg/dL (70-110)
[2021-01-23] MEDS: Topiramate 50 MG Tablet PO (22:08)
[2021-01-23] MEDS: Atorvastatin Calcium 40 MG Tablet PO (22:08)
[2021-01-23] MEDS: Acyclovir 200 MG Capsule PO (22:08)
[2021-01-23] MEDS: Nystatin Powder 15gm Bottle 1 APPLIC TOPICAL (22:08)
--- NOTE | 2021-01-23 22:09 | NURSING ---
nitro paste removed from right arm
--- NOTE | 2021-01-23 22:18 | NURSING ---
pt took her own dalfampaprine from home pill container.
[2021-01-23 22:26] LABS: Bedside Glucose 72 mg/dL (70-110)
[2021-01-24] VITALS (11 sets, daily range): BP systolic 113–146; BP diastolic 54–61; PULSE 43–89; RESP 16–24; TEMP 36.2–36.8; O2SAT 94–98
[2021-01-24] MEDS: Aspirin E.C. 81 MG Tablet PO (05:23)
[2021-01-24 05:36] LABS: Bedside Glucose 126 mg/dL (70-110)
[2021-01-24 06:59] LABS: Anion Gap 5 (5-15); BUN 14 mg/dL (7-18); BUN/Creat Ratio 12.3 RATIO (10-20); Calcium,Total 8.5 mg/dL (8.5-10.1); Chloride 111 mmol/L (98-107); Cholesterol 138 mg/dL (200); Creatinine, Serum 1.14 mg/dL (0.55-1.02); EST Glomerular Filtration Rate 53 mL/min (>60); Est Glom Filt Rate - Afr Amer 65 mL/min (>60); Glucose 112 mg/dL (74-106); High Density Lipoprotein 36 mg/dL; Potassium 3.7 mmol/L (3.5-5.1); Sodium Level 141 mmol/L (136-145); T4 Free Direct 0.73 ng/dL (0.76-1.46); Triglycerides 110 mg/dL; Very Low Density Lipoprotein 22 mg/dL (5-40)
[2021-01-24 11:20] LABS: Bedside Glucose 136 mg/dL (70-110)
--- NOTE | 2021-01-24 12:58 | STRESSREP_ITS ---
Stress Test Report Date: 01-24-2021 Procedure: Pharmacologic stress nuclear imaging study Indications: Chest pain Consent: Per the patient Procedure: The patient underwent pharmacologic (Regadenoson 0.4mg ) evaluation with a peak heart rate of 77 beats per minute (44%predicted maximal heart rate) and a peak blood pressure of 132/70 mmHg. The baseline ECG demonstrated sinus bradycardia. The peak pharmacologic ECG demonstrated no obvious ECG changes. There were no cardiac dysrhythmias pretest, during pharmacologic infusion, or recovery. The patient noted chest discomfort pretest, during pharmacologic infusion, and recovery. The examination was discontinued secondary to completion of protocol. Impression: 1. Pharmacologic (Regadenoson) evaluation 2. Peak pharmacologic ECG with no obvious ECG changes. 3. There were no cardiac dysrhythmias pretest, during pharmacologic infusion, or recovery. 4. Nuclear images pending Myocardial perfusion imaging study: Technique: The patient was injected with 14.8 millicuries of technetium 99m Cardiolite and subsequently rest SPECT Cardiolite nuclear imaging was obtained in the horizontal long, vertical long, and short axis views. The patient underwent pharmacologic (Regadenoson) evaluation with a peak heart rate of 77 beats per minute (44% percent predicted maximal heart rate) and a peak blood pressure of 132/70 mmHg. The patient was injected with 44.4 millicuries of technetium 99m Cardiolite and subsequently stress SPECT Cardiolite nuclear imaging was obtained in the horizontal long, vertical long, and short axis views. A gated Cardiolite study at peak stress was obtained. Interpretation: Rest and stress SPECT Cardiolite nuclear imaging status post realignment, normalization, and attenuation correction demonstrate the appearance of body motion during image acquisition and at rest the appearance of relative uniform tracer uptake and myocardial perfusion appearing within normal limits. Status post stress there is notation of diminished tracer uptake in portions of the mid towards distal anterior and anteroapical segments. There is end systolic thickening and brightening. The gated Cardiolite study demonstrates myocardial thickening and inward wall motion. The reported LVEF is 69%. Impression: 1. Rest and stress SPECT Cardiolite nuclear imaging demonstrate the appearance of body motion during image acquisition as well as status post stress the appearance of diminished myocardial perfusion/tracer uptake in the mid to distal anterior/anteroapical segments concerning for an area of stress-induced myocardial ischemia although an element of shifting soft tissue attenuation/artifact cannot necessarily be excluded. 2. The gated Cardiolite study reports an LVEF of 69%. This note was generated with [place] [employer] software. It may contain incorrect words, spelling, and punctuation that were not noted in checking the note before signing.
--- NOTE | 2021-01-24 14:41 | CHAPLAIN ---
Type of Pastoral Visit _x__ Initial Visit ___ Follow-up Visit ___ On-call Visit ___ General Patient Visit ___ Spiritual Assessment ___ Family Conference ___ Bereavement ___ Rapid Response ___ Code Blue ___ Other (describe below) Pastoral Care Referral From _x__ Patient ___ Family ___ Nurse ___ Physician ___ Paleology Professor ___ Launderette Attendant ___ Other (describe below) Sacrament/Intervention _x__ Active listening ___ Anointing ___ Orthodoxy ___ Bereavement ___ Communion ___ [place] exploration ___ ___ Life review ___ Prayer ___ Reconciliation ___ Sacrament of Sick ___ Supportive presence ___ Wedding ___ Other (describe below) Pastoral Comments
[2021-01-24] MEDS: Levothyroxine 88 MCG Tablet PO (16:32)
--- NOTE | 2021-01-24 16:40 | PCM.PN.HOSP ---
Subjective Subjective Patient did not had chest pain overnight. She felt mild burning sensation over her left arm after pharmacological medication given during stress test. Lateral stress test was read abnormal. Objective Data Objective Data Vital Signs: Vital Signs Temp Pulse Resp BP Pulse Ox 98.2 F 80 18 135/57 H 98 01/24/21 09:09 01/24/21 11:14 01/24/21 09:09 01/24/21 09:09 01/24/21 09:09 Oxygen Delivery Method Room Air Weight: 214 lb 1.102 oz Body Mass Index (BMI) 37.9 Intake & Output: Intake and Output for Last 24 Hours 01/22/21 01/23/21 01/24/21 23:59 23:59 23:59 Intake Total 1000 / 1800 800 / 800 Balance 1000 / 1800 800 / 800 Lab / Micro Data Result Diagrams: 01/23/21 09:10 01/24/21 06:14 Labs: Laboratory Results - last 24 hr 01/23/21 01/23/21 01/23/21 15:50 17:23 22:05 Sodium Potassium Chloride Carbon Dioxide Anion Gap BUN Creatinine Estim Creat Clear Calc Est GFR (MDRD) Af Amer Est GFR (MDRD) Non-Af BUN/Creatinine Ratio Glucose Calcium Troponin I < 0.015 Triglycerides Cholesterol LDL Cholesterol VLDL Cholesterol HDL Cholesterol TSH Free T4 POC Glucose 111 H 72 01/24/21 01/24/21 01/24/21 05:31 06:14 11:14 Sodium 141 Potassium 3.7 Chloride 111 H Carbon Dioxide 25.0 Anion Gap 5 BUN 14 Creatinine 1.14 H Estim Creat Clear Calc 48.30 Est GFR (MDRD) Af Amer 65 Est GFR (MDRD) Non-Af 53 L BUN/Creatinine Ratio 12.3 Glucose 112 H Calcium 8.5 Troponin I Triglycerides 110 Cholesterol 138 LDL Cholesterol 80 VLDL Cholesterol 22 HDL Cholesterol 36 L TSH 1.20 Free T4 0.73 L POC Glucose 126 H 136 H Physical Exam Narrative General: Alert, Oriented x3, Cooperative HEENT: Atraumatic, PERRLA, EOMI, Normocephalic Oral: No Gingival or Mucosal Lesions/ Ulcerations Neck: Supple, No JVD, Negative Carotid Bruits Lungs: Air entry diminished in bilateral lung bases. No crepitation/rhonchi Cardiovascular: Regular rate, Regular Rhythm, Normal S1, Normal S2, No murmurs Abdomen: Bowel Sounds Present, Soft, Non Tender, Non-Distended : No renal angle tenderness. No suprapubic tenderness. Extremities: No edema, Capillary Refill Less than 3 Seconds Skin: No rashes, No breakdown Musculoskeletal: Mild weakness of left leg over knee and hip joints 4/5. Left foot dorsiflexion 4/5. No Tenderness to Palpation of Joints or Extremities Neurological: Cranial nerves II-XII grossly intact, DTR 2+, neuro grossly intact. Psych/Mental Status: Normal Affect, Appropriate. Assessment & Plan Assessment/Plan (1) Chest pain: (2) Essential (primary) hypertension: (3) Multiple sclerosis: (4) Hypothyroidism: PLAN: This is a 49-year-old female with multiple comorbidities came to ER with atypical chest pain 1. Atypical chest pain: Patient is being admitted in PCU. MING risk score is 2 but has multiple risk factors due to comorbidities and medications. Serial troponin enzymes and EKG as per ACS protocol. /: Fasting profile shows low HDL 36. Aspirin 81 mg daily and sublingual nitro as needed. Continue atorvastatin 40 mg daily. Stress test shows concern of a stress-induced ischemia or anteroapical and mid to distal anterior region. [employer] Vendor consulted. 2. Diabetes mellitus type 2: Patient on Victoza which is therapeutic patient is correctional sliding scale. Patient states she has prediabetes Glucose is 136. A1c ordered for tomorrow a.m. 3. Multiple sclerosis with urinary urgency and left lower extremity weakness: on dalfampridine, natalizumab and modafinil. Natalizumab held. PT and OT to evaluate right lower extremity weakness. Patient follows neurologist is [place]. 4. Hypothyroidism and hypertension: Free T4 0.7, TSH normal. Levothyroxine increased to 88 mcg daily. 5. Other multiple comorbidities include chronic back pain, osteopenia, left adrenal adenoma, on hormone replacement therapy for perimenopausal symptoms. Multiple comorbidities complicates the present care and expect difficult and delay recovery Living will/advanced directive/end of life care: Patient does not have living will or advanced directive. Her fianc? is power of career services manager for health. After discussion of benefits/risks procedures involved with full code, DNR CC arrest and DNR CC, the patient opted for full code. Patient does want artificial life support including intubation, tube feed, ventilator and/chest compression, central venous catheter, vasopressor and DC shock if needed during first episode of cardiac arrest but does not want to be continued for prolonged time on life support system. Visit Charges Inpatient E&M: 65879 Subs Hosp L2
[2021-01-24 17:25] LABS: Bedside Glucose 86 mg/dL (70-110)
[2021-01-24] MEDS: Sertraline 100 MG Tablet 200 MG PO (17:26)
[2021-01-24] MEDS: Cholecalciferol (VIT D3) 25 MCG TABLET (1,000 UNITS) 125 MCG PO (17:26)
[2021-01-24] MEDS: buPROPion (XL) 150 MG TABLET.XL 450 MG PO (17:26)
[2021-01-24] MEDS: Enoxaparin 40 MG/0.4 ML Syringe SC (17:27)
[2021-01-24] MEDS: Nystatin Powder 15gm Bottle 1 APPLIC TOPICAL ×2 (17:27→21:04)
[2021-01-24] MEDS: Folic Acid 1 MG Tablet PO (17:27)
[2021-01-24] MEDS: Topiramate 50 MG Tablet PO ×2 (17:27→21:01)
[2021-01-24] MEDS: Baclofen 10 MG Tablet PO ×2 (17:28→21:00)
[2021-01-24] MEDS: Gabapentin 100 MG Capsule PO ×2 (17:29→21:02)
[2021-01-24] MEDS: busPIRone 5 MG Tablet 10 MG PO ×2 (17:29→21:00)
[2021-01-24] MEDS: CLARIFY ORDER NOTE (17:33)
--- NOTE | 2021-01-24 17:42 | NURSING ---
pt medication late due to NPO for stress test. Cleared with Dr. Dorantes for pt to eat. pt request to wait for medication until after meal.
--- NOTE | 2021-01-24 17:53 | CON.PCM.CA_ITS ---
Assessment & Plan Assessment/Plan (1) Abnormal stress test: PLAN: The patient does have an abnormal stress test. This does raise concerns of underlying CAD and myocardial ischemia. Is also known that this could be a false positive study. In light of the patient's symptoms and no other obvious etiology to explain her symptoms and the stress test results it was felt reasonable to patient undergo further evaluation with a diagnostic cardiac catheterization. Procedure and risk were discussed with the patient and she was agreeable to this approach. In the interim she will continue medical therapy as deemed appropriate. (2) Chest pain: QUALIFIERS: Chest pain type: precordial pain Qualified Code(s): R07.2 - Precordial pain PLAN: She did complain of precordial chest discomfort as previously described. Her cardiac enzymes have been negative. Her ECG is demonstrated no acute ch anges. Her stress test is abnormal as noted. At the present time she will continue to be followed, continue medical therapy as deemed appropriate, and proceed with further evaluation with diagnostic cardiac catheterization. (3) Bradycardia: PLAN: The patient does have a history of sinus bradycardia. She has been evaluated for this in the past. She states she did not require ongoing cardiovascular evaluation. She has been avoiding medications that would limit her rate. This diagnosis would have to be taken into consideration depending upon her ca rdiovascular findings and need for other cardiovascular medical management. (4) Essential (primary) hypertension: PLAN: The patient's blood pressure will need to be followed with adjustment of medications as deemed appropriate taking into consideration her sinus bradycardia history. Addt'l Comments The patient's case was discussed and reviewed with the patient. This note was generated using a voice recognition system and there may be incorrect words, spelling or punctuation that were not noted when reviewing the office note prior to saving. HPI Consult Data Date of Consult: 01/24/21 HPI Narrative HPI Narrative: DELMER AVILA, is a 50 F who presents for cardiovascular agitation based on concerns of chest discomfort and an abnormal pharmacologic stress nuclear imaging study. The patient states that she has been evaluated recently for chest, left upper extremity, and left jaw discomfort. She states that she was evaluated in the emergency department. Her evaluation was unremarkable and she was released home. She notes at home, while sitting, she had an episode where she felt chest heaviness as well as the sensation of a crushing chest discomfort. She had associated nausea but no emesis. She did not complain of acute dyspnea or diaphoresis. She contacted her significant other who brought her to the hospital for reevaluation. She was placed in the PCU. She underwent evaluation with cardiac enzymes which were negative. Her ECG demonstrated sinus rhythm/sinus bradycardia. She did undergo an evaluation with a pharmacologic stress nuclear imaging study. This was considered abnormal. The results are noted below. She is also had evaluation with a chest CT scan which demonstrated no thromboembolic disease or great vessel disease. She has been referred for further evaluation and consideration for diagnostic cardiac catheterization. At the present time she appears to be resting comfortably. She states she has not had ongoing chest discomfort. There is been no orthopnea or PND or peripheral pitting edema at the moment. However she states in the past she has had waxing and waning lower extremity peripheral pitting edema. There is been no near syncope or syncope. She states that she did have COVID-19 earlier this year. She did not require hospitalization. She did not require any outpatient medical management. [facility] Medical History Anemia Arthritis Asthma Back problem Bradycardia Chest pain Chronic back pain Collapse of left lung Depression Diverticulitis Essential (primary) hypertension GERD (gastroesophageal reflux disease) History of pneumonia Hormone deficiency Hypothyroidism Low back pain Multiple sclerosis (10/30/16) Neuropathy Obesity (BMI 30-39.9) Osteopenia Pre-diabetes Rectocele Urinary urgency Home Medications baclofen 10 mg tablet 10 mg PO TID 09/19/17 [History Last Taken 12/20/20] biotin 1,000 mcg chewable tablet 2,000 mcg PO DAILY ea 09/19/17 [History Last Taken 12/19/20] dalfampridine 10 mg tablet,extended release,12 hr 10 mg PO Q12H 09/19/17 [History Last Taken 12/20/20] folic acid 800 mcg tablet 800 mcg PO DAILY 09/19/17 [History Last Taken 12/19/20] levothyroxine 75 mcg tablet 75 mcg PO DAILY tab 09/19/17 [History Last Taken 12/20/20] liraglutide 0.6 mg/0.1 mL (18 mg/3 mL) subcutaneous pen injector 1.8 mg SC DAILY 09/19/17 [History Last Taken 12/19/20] modafinil 200 mg tablet 200 mg PO DAILY 09/19/17 [History Last Taken 12/20/20] cyanocobalamin (vitamin B-12) 1,000 mcg/mL injection solution 1,000 mcg IM PATEL 28 Days #4 ml 09/21/18 [History Last Taken 2 Weeks Ago ~12/06/20] nystatin 100,000 unit/gram topical powder 1 applic TOPICAL BID #60 g 04/08/19 [Rx Last Taken Unknown] triamcinolone acetonide 55 mcg nasal spray aerosol 1 spray INTRANASAL DAILY 04/08/19 [History Last Taken Unknown] liothyronine 5 mcg tablet 10 mcg PO DAILY tab 08/03/19 [History Last Taken 12/20/20] hydrocortisone 2.5 % topical cream 1 applic TOPICAL BID PRN #30 g 09/13/19 [Rx Last Taken Unknown] natalizumab 300 mg/15 mL intravenous solution 300 mg IV QMONTH 09/13/19 [History Last Taken 3 Weeks Ago ~11/29/20] polyethylene glycol 3350 17 gram/dose oral powder 17 g PO DAILY PRN 09/13/19 [History Last Taken Unknown] albuterol sulfate 90 mcg/actuation aerosol inhaler 1 - 2 puff INHALATION Q6H PRN #8.5 g 08/04/20 [Rx Last Taken Unknown] acyclovir 200 mg capsule 200 mg PO BID cap 12/13/20 [History Last Taken 12/19/20] bupropion HCl 450 mg 24 hr tablet, extended release 450 mg PO QAM #30 tablet 12/13/20 [Rx Last Taken 12/20/20] cholecalciferol (vitamin D3) 5,000 unit PO DAILY 12/20/20 [History Last Taken 12/20/20] estrogens-methyltestosterone 1 tab PO DAILY 12/20/20 [History Last Taken 12/20/20] sertraline 200 mg PO DAILY 12/20/20 [History Last Taken 12/20/20] topiramate [Topamax] 50 mg PO BID 12/20/20 [History Last Taken 12/20/20] amlodipine 5 mg PO DAILY PRN 01/23/21 [History Last Taken Unknown] gabapentin 100 mg PO TID 01/23/21 [History Last Taken Unknown] Allergy/AdvReac Type Severity Reaction Status Date / Time doxycycline Allergy Vomiting Verified 01/23/21 09:03 latex Allergy Rash Verified 01/23/21 09:03 prochlorperazine Allergy Other Verified 01/23/21 09:03 [From Compazine] Family History Mother Alcoholism Anemia Asthma COPD (chronic obstructive pulmonary disease) Arthritis Kidney disease Mental disorder Respiratory abnormality CVA (cerebral vascular accident) Grandfather Angina pectoris Myocardial infarction Grandmother Arthritis Hypertension Osteoporosis CVA (cerebral vascular accident) Sister Crohn disease Bowel disease Uncle Parkinsons disease Surgical History History of bronchoscopy History of hysterectomy History of rectocele History of tonsillectomy Hx of cholecystectomy Social History Smoking Status: Current every day smoker tobacco type: cigarettes alcohol intake: never substance use type: does not use what type of physical activity do you participate in: none ROS Constitutional Constitutional: Reports as per HPI Eyes Eyes: Reports as per HPI ENT HEENT: Reports as per HPI Cardiovascular Cardiovascular: Reports chest pain at rest and nausea Respiratory/Chest Respiratory/Chest: Reports as per HPI Gastrointestinal Gastrointestinal: Reports as per HPI Genitourinary Genitourinary: Reports as per HPI Musculoskeletal Musculoskeletal: Reports as per HPI Integumentary Integumentary: Reports as per HPI Neurologic Neurologic: Reports as per HPI Psychiatric Psychiatric: Reports as per HPI Physical Exam Const alert and oriented x3 Orientation / Consciousness: awake HEENT normocephalic, head/scalp atraumatic and hearing grossly normal bilaterally Eyes PERRL, EOMs intact bilaterally and conjunctivae normal Neck full ROM and supple Chest inspection of chest normal Resp normal respiratory effort and clear to auscultation bilaterally Cardio S1 normal heart sound and S2 normal heart sound Rate: regular rate and bradycardia GI normal to inspection, nondistended, normoactive bowel sounds Extremity no pedal edema Skin no rashes or lesions noted Neuro oriented x3 and moves all extremities Psych mental status grossly normal Procedure Criteria Type of Procedure Procedure Type: Elective Elective Risks - COVID COVID Risk Discussion: The surgeon/proceduralist and patient have discussed in detail the risk of exposure to and/or potential harm posed by the COVID-19 virus with having a surgery/procedure at this time versus the risk of delaying the surgery/procedure. It is not possible to know either the risk of delaying the surgery or procedure or chance of getting an infection with perfect accuracy, but a joint decision was made between the patient and the surgeon/proceduralist to proceed at this time with the scheduled surgery/procedure as indicated on the consent form. Objective Data Vital Signs: Vital Signs Temp Pulse Resp BP Pulse Ox 98.3 F 89 20 H 146/59 H 98 01/24/21 15:00 01/24/21 15:00 01/24/21 15:00 01/24/21 15:00 01/24/21 15:00 Oxygen Delivery Method Room Air Weight: 214 lb 1.102 oz Body Mass Index (BMI) 37.9 Intake & Output: Intake and Output for Last 24 Hours 01/22/21 01/23/21 01/24/21 23:59 23:59 23:59 Intake Total 1000 / 1800 1750 / 1750 Balance 1000 / 1800 1750 / 1750 Lab / Micro Data Result Diagrams: 01/23/21 09:10 01/24/21 06:14 Labs: Laboratory Results - last 24 hr 01/23/21 01/24/21 01/24/21 22:05 05:31 06:14 Sodium 141 Potassium 3.7 Chloride 111 H Carbon Dioxide 25.0 Anion Gap 5 BUN 14 Creatinine 1.14 H Estim Creat Clear Calc 48.30 Est GFR (MDRD) Af Amer 65 Est GFR (MDRD) Non-Af 53 L BUN/Creatinine Ratio 12.3 Glucose 112 H Calcium 8.5 Triglycerides 110 Cholesterol 138 LDL Cholesterol 80 VLDL Cholesterol 22 HDL Cholesterol 36 L TSH 1.20 Free T4 0.73 L POC Glucose 72 126 H 01/24/21 01/24/21 11:14 15:53 Sodium Potassium Chloride Carbon Dioxide Anion Gap BUN Creatinine Estim Creat Clear Calc Est GFR (MDRD) Af Amer Est GFR (MDRD) Non-Af BUN/Creatinine Ratio Glucose Calcium Triglycerides Cholesterol LDL Cholesterol VLDL Cholesterol HDL Cholesterol TSH Free T4 POC Glucose 136 H 86 Cardiology Labs/Tests 01/24/21 06:14: Sodium 141, Potassium 3.7, Chloride 111 H, Carbon Dioxide 25.0, Anion Gap 5, BUN 14, Creatinine 1.14 H, Est GFR (MDRD) Af Amer 65, Est GFR (MDRD) Non-Af 53 L, BUN/Creatinine Ratio 12.3, Glucose 112 H, Calcium 8.5, Triglycerides 110, Cholesterol 138, LDL Cholesterol 80, VLDL Cholesterol 22, HDL Cholesterol 36 L Rhythm: Sinus bradycardia EKG: Sinus bradycardia ECHO: 09-29-2017 Interpretation Summary Normal LV size. Mild concentric left ventricular hypertrophy. Left ventricular systolic function is normal. The estimated ejection fraction is 60 %. Contrast injection was performed. Stress Test: Stress Test Report Date: 01-24-2021 Procedure: Pharmacologic stress nuclear imaging study Indications: Chest pain Consent: Per the patient Procedure: The patient underwent pharmacologic (Regadenoson 0.4mg ) evaluation with a peak heart rate of 77 beats per minute (44%predicted maximal heart rate) and a peak blood pressure of 132/70 mmHg. The baseline ECG demonstrated sinus bradycardia. The peak pharmacologic ECG demonstrated no obvious ECG changes. There were no cardiac dysrhythmias pretest, during pharmacologic infusion, or recovery. The patient noted chest discomfort pretest, during pharmacologic infusion, and recovery. The examination was discontinued secondary to completion of protocol. Impression: 1. Pharmacologic (Regadenoson) evaluation 2. Peak pharmacologic ECG with no obvious ECG changes. 3. There were no cardiac dysrhythmias pretest, during pharmacologic infusion, or recovery. 4. Nuclear images pending Myocardial perfusion imaging study: Technique: The patient was injected with 14.8 millicuries of technetium 99m Cardiolite and subsequently rest SPECT Cardiolite nuclear imaging was obtained in the horizontal long, vertical long, and short axis views. The patient underwent pharmacologic (Regadenoson) evaluation with a peak heart rate of 77 beats per m inute (44% percent predicted maximal heart rate) and a peak blood pressure of 132/70 mmHg. The patient was injected with 44.4 millicuries of technetium 99m Cardiolite and subsequently stress SPECT Cardiolite nuclear imaging was obtained in the horizontal long, vertical long, and short axis views. A gated Cardiolite study at peak stress was obtained. Interpretation: Rest and stress SPECT Cardiolite nuclear imaging status post realignment, normalization, and attenuation correction demonstrate the appearance of body motion during image acquisition and at rest the appearance of relative uniform tracer uptake and myocardial perfusion appearing within normal limits. Status post stress there is notation of diminished tracer uptake in portions of the mid towards distal anterior and anteroapical segments. There is end systolic thickening and brightening. The gated Cardiolite study demonstrates myocardial thickening and inward wall motion. The reported LVEF is 69%. Impression: 1. Rest and stress SPECT Cardiolite nuclear imaging demonstrate the appearance of body motion during image acquisition as well as status post stress the appearance of diminished myocardial perfusion/tracer uptake in the mid to distal anterior/anteroapical segments concerning for an area of stress-induced my ocardial ischemia although an element of shifting soft tissue attenuation/artifact cannot necessarily be excluded. 2. The gated Cardiolite study reports an LVEF of 69%. Chest CT Scan: FINDINGS: Normal enhancement of the main pulmonary artery and right and left pulmonary arteries. Normal enhancement of the bilateral peripheral pulmonary arteries. There is no demonstrated pulmonary embolism. Normal thoracic aorta and visualized great vessels. There is no demonstrated aortic dissection. Normal heart and pericardium. Normal mediastinum. Normal hilar regions. Normal visualized trachea and bronchi. The lungs are well expanded. Normal pulmonary parenchyma. Normal pleura. Normal chest wall structures. Normal osseous structures. Patient is status post cholecystectomy. CT/CTA Chest W/WO Contrast IMPRESSION: Normal CTA chest examination, without a demonstrated pulmonary embolism or arterial dissection. Electronically Signed: Raheem Hood MD at 11:04 EDT
[2021-01-24] MEDS: TICAGRELOR 90 MG TABLET 180 MG PO (20:57)
[2021-01-24] MEDS: Atorvastatin Calcium 40 MG Tablet PO (21:01)
[2021-01-24] MEDS: Acyclovir 200 MG Capsule PO (21:17)
[2021-01-24] MEDS: Insulin Lispro 100 UNIT/ML INSULN.PEN SC (22:08)
[2021-01-24] MEDS: 0.9% Saline Lock 10 ML Syringe IV (22:11)
[2021-01-24 22:40] LABS: Bedside Glucose 160 mg/dL (70-110)
[2021-01-25] VITALS (10 sets, daily range): BP systolic 107–146; BP diastolic 42–88; PULSE 46–58; RESP 18; TEMP 36.6–36.9; O2SAT 96–98
--- NOTE | 2021-01-25 05:55 | EKG12_ITS ---
Test Reason : AM EKG Blood Pressure : / mmHG Vent. Rate : 054 BPM Atrial Rate : 054 BPM P-R Int : 150 ms QRS Dur : 082 ms QT Int : 462 ms P-R-T Axes : 067 022 043 degrees QTc Int : 438 ms Sinus bradycardia Otherwise normal ECG When compared with ECG of 23-JAN-2021 13:41, No significant change was found Confirmed by KRISTIAN GARRISON, MILKA ([id number]), senior editor CHANTE GUEVARA ([id number]) on 01/29/2021 10:39:27 AM Referred By: Confirmed By:MANDI TOWNSEND MD
[2021-01-25] MEDS: TICAGRELOR 90 MG TABLET PO (06:29)
[2021-01-25] MEDS: Baclofen 10 MG Tablet PO (06:29)
[2021-01-25] MEDS: Gabapentin 100 MG Capsule PO (06:29)
[2021-01-25] MEDS: Levothyroxine 88 MCG Tablet PO (06:37)
[2021-01-25] MEDS: Aspirin E.C. 81 MG Tablet PO (06:37)
[2021-01-25 06:50] LABS: Bedside Glucose 106 mg/dL (70-110)
--- NOTE | 2021-01-25 07:35 | NURSING ---
gave report to Al PARK in director of laboratory operations
[2021-01-25] MEDS: 0.9% Normal Saline 1,000 ML 75 ML IV (08:40)
--- NOTE | 2021-01-25 08:40 | CASEMGMT ---
Insurance review for hospitals In-network with?[facility] [employer] Insurance if transfer is recommended is as follows: [facility], [facility], [facility], and [facility] Mela NORTONN RN CM
[2021-01-25 08:41] LABS: Hemoglobin A1c 5.6 % (3.8-5.6)
--- NOTE | 2021-01-25 08:47 | PCM.PN.CARD ---
Subjective Subjective The patient underwent diagnostic cardiac catheterization this a.m. She appeared to tolerate the procedure well with no acute issues or concerns. Objective Data Vital Signs: Vital Signs Temp Pulse Resp BP Pulse Ox 98.5 F 58 L 18 131/72 H 96 01/25/21 06:38 01/25/21 07:03 01/25/21 06:38 01/25/21 06:38 01/25/21 06:38 Oxygen Delivery Method Room Air Weight: 214 lb 1.102 oz Body Mass Index (BMI) 37.9 Intake & Output: Intake and Output for Last 24 Hours 01/23/21 01/24/21 01/25/21 23:59 23:59 23:59 Intake Total 1000 / 1800 2450 / 2450 Balance 1000 / 1800 2450 / 2450 Lab / Micro Data Result Diagrams: 01/23/21 09:10 01/24/21 06:14 Labs: Laboratory Results - last 24 hr 01/24/21 01/24/21 01/24/21 06:02 11:14 15:53 Hemoglobin A1c 5.6 POC Glucose 136 H 86 01/24/21 01/25/21 21:13 06:42 Hemoglobin A1c POC Glucose 160 H 106 Cardiology Labs/Tests 01/24/21 06:02: Hemoglobin A1c 5.6 Rhythm: Sinus bradycardia EKG: Sinus bradycardia Cardiac Cath: Physical Exam Const alert and oriented x3 Orientation / Consciousness: awake HEENT normocephalic, head/scalp atraumatic and hearing grossly normal bilaterally Eyes PERRL, EOMs intact bilaterally and conjunctivae normal Neck full ROM and supple Chest inspection of chest normal Resp normal respiratory effort and clear to auscultation bilaterally Cardio S1 normal heart sound and S2 normal heart sound Rate: regular rate and bradycardia GI normal to inspection, nondistended, normoactive bowel sounds Extremity no pedal edema Extremity Narrative: Right radial artery pulse: 2+/4+: No obvious bruit: No obvious hematoma Peripheral Pulses: Yes radial pulses present right 2+ Skin no rashes or lesions noted Neuro oriented x3 and moves all extremities Psych mental status grossly normal Assessment & Plan Assessment/Plan (1) Abnormal stress test: PLAN: The patient does have an abnormal stress test. The patient has undergone further evaluation with diagnostic cardiac catheterization. Her left ventricular wall motion systolic function appear to be preserved. Her coronary arteries appear to be angiographically normal. Thus, it appears her stress nuclear imaging study was considered a false positive secondary to body motion/artifact and/or soft tissue attenuation/artifact. (2) Chest pain: QUALIFIERS: Chest pain type: precordial pain Qualified Code(s): R07.2 - Precordial pain PLAN: She did complain of precordial chest discomfort as previously described. Her cardiac enzymes have been negative. Her ECG is demonstrated no acute changes. She did undergo evaluation with diagnostic cardiac catheterization. As noted above her coronary arteries appear to be angiographically normal. Thus at the present time she should be considered for further noncardiac evaluation of her chest discomfort. (3) Bradycardia: PLAN: The patient does have a history of sinus bradycardia. She has been evaluated for this in the past. She states she did not require ongoing cardiovascular evaluation. She has been avoiding medications that would limit her rate. (4) Essential (primary) hypertension: PLAN: The patient's blood pressure will need to be followed with adjustment of medications as deemed appropriate taking into consideration her sinus bradycardia history. Addt'l Comments The patient's case was discussed and reviewed with the patient and the aforementioned information was conveyed to Dr. Hernandez. This note was generated using a voice recognition system and there may be incorrect words, spelling or punctuation that were not noted when reviewing the office note prior to saving.
--- NOTE | 2021-01-25 08:48 | CL.D_ITS ---
Patient Name: DELMER AVILA Study Date: 01/25/2021 Performing: Raymundo Wilkins MD Ht: 63 inches 160 cm : 1970 Wt: 214.1 lbs 97 kg Age: 50 Gender: female BSA: 1.99 PROCEDURE(S) PERFORMED EM45-LGI/COR/LV CLINICAL PROFILE AND INDICATIONS Indications: Worsening Angina Heart Failure: None Stress/Imaging Date: 01/25/2021tress Test with SPECT MPI: Positive Intermediate Risk Angina Classification Anginal Classification w/in 2 Weeks: CCS III CAD Presentations: Unstable angina. CONCLUSIONS Elevated Left Ventricular End Diastolic Pressure Normal LV size, wall motion,and systolic function LVEF: by LV gram 60 % Normal coronary arteries RECOMMENDATIONS Risk factor modification Medical therapy DESCRIPTION OF PROCEDURE The patient arrived to the procedure lab. The risks and benefits of the procedure as well as a full d escription of our services here and current unavailability of surgical backup were fully explained to the patient and/or their significant other prior to the catheterization. The Timeout was completed, verifying the correct patient and procedure. The patient's procedural site was prepped and draped in the usual fashion. Local anesthetic was given subcutaneously to right radial region with Lidocaine 2% . Using a modified Seldinger technique, arterial access was obtained via the right radial artery, a 6 Fr sheath was inserted. Left Coronary Artery selective angiography was performed in multiple views u sing a 5 Fr. 4.0 [place] catheter. Right Coronary Artery selective angiography was then performed in mu ltiple views using a 5 Fr. 4.0 [place] catheter. Left Ventriculography was performed in BROOKS projection using a 5 Fr. [place] catheter. LV to AO pullback pressures were then recorded.The arterial sheath was pulled and a TR Band was applied for hemostasis. 13cc of air CORONARY ANGIOGRAPHY DOMINANCE: Right Dominant LEFT HEART ASSESSMENT Left Ventricular Ejection Fraction: by LV Gram 60 % Normal LV wall motion Elevated Left Ventricular End Diastolic Pressure LVEDP: 33 mmHg LEFT MAIN: Angiographically normal LEFT ANTERIOR DESCENDING ARTERY: Angiographically normal CIRCUMFLEX ARTERY: Angiographically normal RIGHT CORONARY ARTERY: Angiographically normal AORTIC ROOT: Angiographically normal COMPLICATIONS No Complications PROCEDURE MEDICATIONS Fentanyl 50 mcg IV Versed 1 mg IV Fentanyl 50 mcg IV Versed 1 mg IV Oxygen: 2 L/min via nasal cannula Heparin given IA 01/25/2021 07:59:48 Verapamil 2.5mg, Ntg 100mcgs, 3000 units of Heparin given IA 01/25/2021 07:59:48 SUMMARY OF HEMODYNAMIC DATA Time AIR REST ECG 07:49:33 AO 133/66 (93) SA 08:11:23 LV 150/0, 33 08:17:13 LV 149/0, 33 08:17:20 LV 159/0, 36 08:18:20 LVp 157/8, 43 08:18:26 AOp 158/19 (77) 08:18:31 Signed By Raymundo Wilkins MD On 01/25/2021 08:47:02 Raymundo Wilkins MD
[2021-01-25] MEDS: Folic Acid 1 MG Tablet PO (09:16)
[2021-01-25] MEDS: busPIRone 5 MG Tablet 10 MG PO (09:16)
[2021-01-25] MEDS: Nystatin Powder 15gm Bottle 1 APPLIC TOPICAL (09:19)
[2021-01-25] MEDS: Modafinil 200 MG Tablet PO (09:20)
[2021-01-25] MEDS: Acyclovir 200 MG Capsule PO (09:21)
[2021-01-25] MEDS: Topiramate 50 MG Tablet PO (10:01)
[2021-01-25] MEDS: buPROPion (XL) 150 MG TABLET.XL 450 MG PO (10:01)
[2021-01-25] MEDS: Cholecalciferol (VIT D3) 25 MCG TABLET (1,000 UNITS) 125 MCG PO (10:02)
[2021-01-25] MEDS: Sertraline 100 MG Tablet 200 MG PO (10:51)
--- NOTE | 2021-01-25 11:01 | PCM.DC ---
Discharge Instructions Diet Discharge Diet: 2000 mg Sodium Diet Activity Discharge Activity: Return to Normal Activity and May Not Drive (Until sees PCP.) Weight Bearing Status: Weight bearing as tolerated Dressing / Incision Call your doctor if your incision/area has: Continuous Slow Oozing, Sudden Increased Bleeding and Increased Redness Call your doctor if you observe: Fever of 101 or Higher, Coldness, Increased Pain, Numbness or Tingling, Change in Color, Inability to urinate, Inability to have a bowel movement, Using more than one pad per hour, Shortness of breath, Dizziness, Fainting spells, Swelling in the ankles, Prolonged hiccupping, Increased palpitations (irregular heartbeat), Calf discomfort and Uncontrolled pain Follow Up Care Test Results: Test results from this visit will be discussed in further detail at your follow-up appointment, if applicable. Discharge Plan Admission Admit Date/Time: 01/23/21 12:03 Primary Reason for Your Visit: Typical chest pain. ACS ruled out Attending Provider: Isac Hernandez Primary Care Provider: Keith Wu Consulting Providers: Raymundo Wilkins Instructions Patient Instructions: Angina, ED Chest Pain, Noncardiac Discharge Orders/Prescriptions Prescriptions: New levothyroxine 88 mcg Tablet 88 mcg PO DAILY@0600 Qty: 30 RF: 0 rosuvastatin 10 mg capsule, sprinkle 10 mg PO DAILY Qty: 30 RF: 0 Continued biotin 1,000 mcg tablet,chewable 2,000 mcg PO DAILY RF: 0 folic acid 800 mcg tablet 800 mcg PO DAILY RF: 0 dalfampridine [Ampyra] 10 mg tablet extended release 12 hr 10 mg PO Q12H RF: 0 baclofen 10 mg tablet 10 mg PO TID RF: 0 modafinil 200 mg tablet 200 mg PO DAILY RF: 0 liraglutide [Victoza 2-Jian] 0.6 mg/0.1 mL (18 mg/3 mL) pen injector 1.8 mg SC DAILY RF: 0 cyanocobalamin (vitamin B-12) 1,000 mcg/mL solution 1,000 mcg IM PATEL 28 Days Qty: 4 RF: 0 triamcinolone acetonide [Nasacort] 55 mcg aerosol,spray 1 spray INTRANASAL DAILY RF: 0 nystatin 100,000 unit/gram powder 1 applic TOPICAL BID Qty: 60 RF: 4 liothyronine [Cytomel] 5 mcg tablet 10 mcg PO DAILY RF: 0 Tysabri 300 mg/15 mL solution 300 mg IV QMONTH RF: 0 polyethylene glycol 3350 [Miralax] 17 gram/dose powder 17 g PO DAILY PRN (Reason: Constipation) RF: 0 hydrocortisone 2.5 % cream 1 applic TOPICAL BID PRN (Reason: rash) Qty: 30 RF: 2 acyclovir 200 mg capsule 200 mg PO BID RF: 0 bupropion HCl 450 mg tablet extended release 24 hr 450 mg PO QAM Qty: 30 RF: 1 estrogens-methyltestosterone 0.625-1.25 mg tablet 1 tab PO DAILY RF: 0 sertraline 100 mg tablet 200 mg PO DAILY RF: 0 cholecalciferol (vitamin D3) 125 mcg (5,000 unit) capsule 5,000 unit PO DAILY RF: 0 topiramate [Topamax] 50 mg tablet 50 mg PO BID RF: 0 gabapentin 100 mg Capsule 100 mg PO TID RF: 0 amlodipine 5 mg tablet 5 mg PO DAILY PRN (Reason: htn) RF: 0 albuterol sulfate [ProAir HFA] 90 mcg/actuation HFA aerosol inhaler 1 - 2 puff inhalation Q6H PRN (Reason: shortness of breath or wheezing) Qty: 8.5 RF: 1 Discontinued levothyroxine [Synthroid] 75 mcg tablet 75 mcg PO DAILY RF: 0 Referrals / Follow Up: Keith Wu MD [Primary Care Provider] - Within 2 Weeks Disposition Disposition (needs filled in before D/C Order can be placed): Home, self care
--- NOTE | 2021-01-25 11:12 | DS.PCM_ITS ---
Providers Date of Admission: 01/23/21 Primary Care Physician: Dr. Keith Wu MD Consultations 01/24/21 13:40 Consult: Cardiology Routine Consulting Provider: Raymundo Wilkins Reason for Consult: Abnormal stress test EMERGENT Consult: No MD Notified: Yes Date Notified:: 01/24/21 Time Notified: 13:40 Method of Notification: Text Reason For Visit: ATYPICAL CHEST PAIN Diagnosis Discharge Diagnosis (1) Abnormal stress test: Status: Acute Code(s): R94.39 - Abnormal result of other cardiovascular function study (2) Chest pain: Status: Acute Code(s): R07.9 - Chest pain, unspecified Qualifiers: Chest pain type: precordial pain Qualified Code(s): R07.2 - Precordial pain (3) Bradycardia: Status: Chronic Code(s): R00.1 - Bradycardia, unspecified (4) Essential (primary) hypertension: Status: Chronic Code(s): I10 - Essential (primary) hypertension Medications at Discharge Home Medications baclofen 10 mg tablet 10 mg PO TID 09/19/17 biotin 1,000 mcg chewable tablet 2,000 mcg PO DAILY ea 09/19/17 dalfampridine 10 mg tablet,extended release,12 hr 10 mg PO Q12H 09/19/17 folic acid 800 mcg tablet 800 mcg PO DAILY 09/19/17 liraglutide 0.6 mg/0.1 mL (18 mg/3 mL) subcutaneous pen injector 1.8 mg SC DAILY 09/19/17 modafinil 200 mg tablet 200 mg PO DAILY 09/19/17 cyanocobalamin (vitamin B-12) 1,000 mcg/mL injection solution 1,000 mcg IM PATEL 28 Days #4 ml 09/21/18 nystatin 100,000 unit/gram topical powder 1 applic TOPICAL BID #60 g 04/08/19 triamcinolone acetonide 55 mcg nasal spray aerosol 1 spray INTRANASAL DAILY 04/08/19 liothyronine 5 mcg tablet 10 mcg PO DAILY tab 08/03/19 hydrocortisone 2.5 % topical cream 1 applic TOPICAL BID PRN #30 g 09/13/19 natalizumab 300 mg/15 mL intravenous solution 300 mg IV QMONTH 09/13/19 polyethylene glycol 3350 17 gram/dose oral powder 17 g PO DAILY PRN 09/13/19 albuterol sulfate 90 mcg/actuation aerosol inhaler 1 - 2 puff INHALATION Q6H PRN #8.5 g 08/04/20 acyclovir 200 mg capsule 200 mg PO BID cap 12/13/20 bupropion HCl 450 mg 24 hr tablet, extended release 450 mg PO QAM #30 tablet 12/13/20 cholecalciferol (vitamin D3) 5,000 unit PO DAILY 12/20/20 estrogens-methyltestosterone 1 tab PO DAILY 12/20/20 sertraline 200 mg PO DAILY 12/20/20 topiramate [Topamax] 50 mg PO BID 12/20/20 amlodipine 5 mg PO DAILY PRN 01/23/21 gabapentin 100 mg PO TID 01/23/21 levothyroxine 88 mcg PO DAILY@0600 #30 tab 01/25/21 rosuvastatin 10 mg PO DAILY #30 cap 01/25/21 Hospital Course Summary of Care Provided Hospital Course: This is a 49-year-old female with multiple comorbidities came to ER with atypical chest pain 1. Atypical chest pain: Patient is being admitted in PCU. MING risk score is 2 but has multiple risk factors due to comorbidities and medications. Serial troponin enzymes and EKG as per ACS protocol. Fasting profile shows low HDL 36. Aspirin 81 mg daily and sublingual nitro as needed. Continue atorvastatin 40 mg daily. Stress test shows concern of a stress-induced ischemia or anteroapical and mid to distal anterior region. Commissioning Engineer consulted. Patient had cardiac cath which showed normal coronary arteries. Started on low-dose rosuvastatin as patient has MS mild muscle achiness for low HDL. Does not need aspirin. Discussed with designer 2. Diabetes mellitus type 2: Patient on Victoza which is therapeutic patient is correctional sliding scale. A1c 5.6. Patient states she has prediabetes Glucose is 136. 3. Multiple sclerosis with urinary urgency and left lower extremity weakness: on dalfampridine, natalizumab and modafinil. Natalizumab held. PT and OT to evaluate right lower extremity weakness. Patient follows neurologist is Nathan. 4. Hypothyroidism and hypertension: Free T4 0.7, TSH normal. Levothyroxine increased to 88 mcg daily. 5. Other multiple comorbidities include chronic back pain, osteopenia, left adrenal adenoma, on hormone replacement therapy for perimenopausal symptoms. Multiple comorbidities complicates the present care and expect difficult and delay recovery Living will/advanced directive/end of life care: Full code. Discharge medication reconciliation done. Discharge follow-up instructions completed. Discharge process discussed with the patient and all questions were answered to patient's satisfaction. Prescription sent to [facility]. Total time spent, exact 35 minutes on discharge meds reconciliation, examination, coordination of care with nurses and ancillary staff, review of imaging and blood test and discussion with the patient on follow-up instructions ABG / Lab / Microbiology Data Result Diagrams: 01/23/21 09:10 01/24/21 06:14 Laboratory: Laboratory Results - last 24 hr 01/24/21 01/24/21 01/24/21 06:02 11:14 15:53 Hemoglobin A1c 5.6 POC Glucose 136 H 86 01/24/21 01/25/21 21:13 06:42 Hemoglobin A1c POC Glucose 160 H 106 D/C Instructions Discharge Diet: 2000 mg Sodium Diet Discharge Activity: Return to Normal Activity and May Not Drive (Until sees PCP.) Weight Bearing Status: Weight bearing as tolerated Call your doctor if your incision/area has: Continuous Slow Oozing, Sudden Increased Bleeding and Increased Redness Call your doctor if you observe: Fever of 101 or Higher, Coldness, Increased Pain, Numbness or Tingling, Change in Color, Inability to urinate, Inability to have a bowel movement, Using more than one pad per hour, Shortness of breath, Dizziness, Fainting spells, Swelling in the ankles, Prolonged hiccupping, Increased palpitations (irregular heartbeat), Calf discomfort and Uncontrolled pain Meaningful Use Info Meaningful Use Diagnoses (Choose all that apply): None applicable Discharge Plan Admission Admit Date/Time: 01/23/21 12:03 Primary Reason for Your Visit: Typical chest pain. ACS ruled out Attending Provider: Isac Hernandez Primary Care Provider: Keith Wu Consulting Providers: Raymundo Wilkins Instructions Patient Instructions: Angina, ED Chest Pain, Noncardiac Discharge Orders/Prescriptions Prescriptions: New levothyroxine 88 mcg Tablet 88 mcg PO DAILY@0600 Qty: 30 RF: 0 rosuvastatin 10 mg capsule, sprinkle 10 mg PO DAILY Qty: 30 RF: 0 Continued biotin 1,000 mcg tablet,chewable 2,000 mcg PO DAILY RF: 0 folic acid 800 mcg tablet 800 mcg PO DAILY RF: 0 dalfampridine [Ampyra] 10 mg tablet extended release 12 hr 10 mg PO Q12H RF: 0 baclofen 10 mg tablet 10 mg PO TID RF: 0 modafinil 200 mg tablet 200 mg PO DAILY RF: 0 liraglutide [Victoza 2-Jian] 0.6 mg/0.1 mL (18 mg/3 mL) pen injector 1.8 mg SC DAILY RF: 0 cyanocobalamin (vitamin B-12) 1,000 mcg/mL solution 1,000 mcg IM PATEL 28 Days Qty: 4 RF: 0 triamcinolone acetonide [Nasacort] 55 mcg aerosol,spray 1 spray INTRANASAL DAILY RF: 0 nystatin 100,000 unit/gram powder 1 applic TOPICAL BID Qty: 60 RF: 4 liothyronine [Cytomel] 5 mcg tablet 10 mcg PO DAILY RF: 0 Tysabri 300 mg/15 mL solution 300 mg IV QMONTH RF: 0 polyethylene glycol 3350 [Miralax] 17 gram/dose powder 17 g PO DAILY PRN (Reason: Constipation) RF: 0 hydrocortisone 2.5 % cream 1 applic TOPICAL BID PRN (Reason: rash) Qty: 30 RF: 2 acyclovir 200 mg capsule 200 mg PO BID RF: 0 bupropion HCl 450 mg tablet extended release 24 hr 450 mg PO QAM Qty: 30 RF: 1 estrogens-methyltestosterone 0.625-1.25 mg tablet 1 tab PO DAILY RF: 0 sertraline 100 mg tablet 200 mg PO DAILY RF: 0 cholecalciferol (vitamin D3) 125 mcg (5,000 unit) capsule 5,000 unit PO DAILY RF: 0 topiramate [Topamax] 50 mg tablet 50 mg PO BID RF: 0 gabapentin 100 mg Capsule 100 mg PO TID RF: 0 amlodipine 5 mg tablet 5 mg PO DAILY PRN (Reason: htn) RF: 0 albuterol sulfate [ProAir HFA] 90 mcg/actuation HFA aerosol inhaler 1 - 2 puff inhalation Q6H PRN (Reason: shortness of breath or wheezing) Qty: 8.5 RF: 1 Discontinued levothyroxine [Synthroid] 75 mcg tablet 75 mcg PO DAILY RF: 0 Referrals / Follow Up: Keith Wu MD [Primary Care Provider] - Within 2 Weeks Disposition Disposition (needs filled in before D/C Order can be placed): Home, self care Charges/Coding Visit Charges OBSV E&M: 56190 Observation care discharge
--- NOTE | 2021-01-25 11:34 | PHA.DC.MC ---
Pharmacy Service has performed discharge medication reconciliation and counseling for this patient. The patient was counseled on the following discharge medications and changes in medications for homegoing were reviewed. 1. CRESTOR 2. SYNTHROID - DOSE INCREASE The Reason for Use, instructions for use, and potential side effects were reviewed for all new medications. The patient's questions regarding all of their medications were answered. The patient was able to verbally demonstrate an understanding of their discharge medications. Home Medications baclofen 10 mg tablet 10 mg PO TID 09/19/17 biotin 1,000 mcg chewable tablet 2,000 mcg PO DAILY ea 09/19/17 dalfampridine 10 mg tablet,extended release,12 hr 10 mg PO Q12H 09/19/17 folic acid 800 mcg tablet 800 mcg PO DAILY 09/19/17 liraglutide 0.6 mg/0.1 mL (18 mg/3 mL) subcutaneous pen injector 1.8 mg SC DAILY 09/19/17 modafinil 200 mg tablet 200 mg PO DAILY 09/19/17 cyanocobalamin (vitamin B-12) 1,000 mcg/mL injection solution 1,000 mcg IM PATEL 28 Days #4 ml 09/21/18 nystatin 100,000 unit/gram topical powder 1 applic TOPICAL BID #60 g 04/08/19 triamcinolone acetonide 55 mcg nasal spray aerosol 1 spray INTRANASAL DAILY 04/08/19 liothyronine 5 mcg tablet 10 mcg PO DAILY tab 08/03/19 hydrocortisone 2.5 % topical cream 1 applic TOPICAL BID PRN #30 g 09/13/19 natalizumab 300 mg/15 mL intravenous solution 300 mg IV QMONTH 09/13/19 polyethylene glycol 3350 17 gram/dose oral powder 17 g PO DAILY PRN 09/13/19 albuterol sulfate 90 mcg/actuation aerosol inhaler 1 - 2 puff INHALATION Q6H PRN #8.5 g 08/04/20 acyclovir 200 mg capsule 200 mg PO BID cap 12/13/20 bupropion HCl 450 mg 24 hr tablet, extended release 450 mg PO QAM #30 tablet 12/13/20 cholecalciferol (vitamin D3) 5,000 unit PO DAILY 12/20/20 estrogens-methyltestosterone 1 tab PO DAILY 12/20/20 sertraline 200 mg PO DAILY 12/20/20 topiramate [Topamax] 50 mg PO BID 12/20/20 amlodipine 5 mg PO DAILY PRN 01/23/21 gabapentin 100 mg PO TID 01/23/21 levothyroxine 88 mcg PO DAILY@0600 #30 tab 01/25/21 rosuvastatin 10 mg PO DAILY #30 cap 01/25/21 The patient's discharge medication list was reviewed for discrepancies and discrepancies were resolved. NOTE: ALSO CALLED [facility] TO INFORM PATIENT OF CRESTOR COST, PER PT REQUEST
== END 2021-01-25 11:11 | disposition home or self-care (01) ==
LOC: ED 11:30 → PCU 13:29
PROVIDERS: Admitting Provider Internal Medicine; Emergency Provider Emergency Medicine; PCP Internal Medicine; Visit Provider Internal Medicine
DX: R07.2 Precordial pain (principal); R94.30 Abnormal result of cardiovascular function study, unspecified; R94.39 Abnormal result of other cardiovascular function study; I10 Essential (primary) hypertension; R00.1 Bradycardia, unspecified; R06.02 Shortness of breath; M19.90 Unspecified osteoarthritis, unspecified site; F32.9 Major depressive disorder, single episode, unspecified; J45.909 Unspecified asthma, uncomplicated; K21.9 Gastro-esophageal reflux disease without esophagitis; G89.29 Other chronic pain; E03.9 Hypothyroidism, unspecified; G35 Multiple sclerosis; F17.210 Nicotine dependence, cigarettes, uncomplicated; E66.9 Obesity, unspecified; E11.42 Type 2 diabetes mellitus with diabetic polyneuropathy; R39.15 Urgency of urination; Z68.37 Body mass index [BMI] 37.0-37.9, adult; Z79.899 Other long term (current) drug therapy
CPT/HCPCS: 36415; 71045; 71275; 78452; 80048; 80061; 82962; 83036; 83735; 84439; 84443; 84484; 85025; 85379; 93005; 93017; 93458; 96360; 96361; 96372; 99152; 99153; 99218; 99284; A9500; J7030; J7040; Q9967; A4216; C1769; C1894; G0378; J2785

== ENCOUNTER → 2021-03-22 06:59 | Outpatient (CLI) | payer OTHER, SELFPAY ==
[2021-03-14 11:22] VITALS: BMI 39.6
== END ==
PROVIDERS: PCP Internal Medicine
DX: G35 Multiple sclerosis (principal)
CPT/HCPCS: 36415; 86769

== ENCOUNTER → 2021-04-11 | Outpatient (CLI) | payer OTHER, SELFPAY | END | disposition home or self-care (01) | LOC: LABSPEC 10:54 | PROVIDERS: Physician Assistant; PCP Internal Medicine; Visit Provider Internal Medicine | DX: R09.89 Other specified symptoms and signs involving the circulatory and respiratory systems (principal); M79.10 Myalgia, unspecified site; R51.9 Headache, unspecified | CPT/HCPCS: 87635; U0005; U0003 ==

== ENCOUNTER → 2021-06-13 11:35 | Outpatient (CLI) | payer OTHER, SELFPAY ==
[2021-06-13 12:08] LABS: Absolute Lymphocyte Count 1.49 X10^3/uL (0.83-4.51); Absolute Neutrophil Count 2.3 X10^3/uL (2.0-7.7); Basophil# 0.04 X10^3/uL; Basophil% 0.9 % (0-1); Eosinophil# 0.05 X10^3/uL; Eosinophils% 1.2 % (0-5); Hematocrit 39.8 % (37-47); Hemoglobin 12.7 g/dL (12.0-15.0); Lymphocyte # 1.49 X10^3/ul (0.83-4.51); Lymphocyte % 34.5 % (19-41); Mean Corp Hgb Conc 31.9 g/dL (32-36); Mean Corpuscular Hgb 32.2 pg (27.0-32.0); Mean Corpuscular Volume 100.8 fL (81-99); Mean Platelet Vol. 8.8 fl (6.2-12.0); Monocyte# 0.39 X10^3/uL; NRBC Flagged by Analyzer 0 % (0-5); Neutrophil # 2.34 X10^3/uL (2.7-7.7); Neutrophil % 54.2 % (47-70); Platelet Count 245 K/mm3 (150-450); RBC Distribution Width CV 14.8 % (11.6-14.6); RBC Distribution Width SD 54.3 fl (35.1-43.9); Red Blood Count 3.95 M/mm3 (4.2-5.4); White Blood Count 4.3 K/mm3 (4.4-11.0)
== END ==
LOC: BIMLAB 11:36
PROVIDERS: PCP Internal Medicine; Referring Provider Internal Medicine; Visit Provider Internal Medicine
DX: G35 Multiple sclerosis (principal)
CPT/HCPCS: 36415; 85025

== ENCOUNTER 2021-07-11 15:53 | Outpatient (RCR) | payer OTHER, SELFPAY ==
[2021-07-11 17:02] LABS: Absolute Lymphocyte Count 1.09 X10^3/uL (0.83-4.51); Absolute Neutrophil Count 2.6 X10^3/uL (2.0-7.7); Basophil# 0.03 X10^3/uL; Basophil% 0.7 % (0-1); Eosinophil# 0.05 X10^3/uL; Eosinophils% 1.2 % (0-5); Hematocrit 38.1 % (37-47); Hemoglobin 12.9 g/dL (12.0-15.0); Lymphocyte # 1.09 X10^3/ul (0.83-4.51); Lymphocyte % 25.8 % (19-41); Mean Corp Hgb Conc 33.9 g/dL (32-36); Mean Corpuscular Hgb 33.4 pg (27.0-32.0); Mean Corpuscular Volume 98.7 fL (81-99); Monocyte# 0.42 X10^3/uL; NRBC Flagged by Analyzer 0 % (0-5); Neutrophil # 2.62 X10^3/uL (2.7-7.7); Neutrophil % 62.1 % (47-70); Platelet Count 155 K/mm3 (150-450); RBC Distribution Width CV 15.7 % (11.6-14.6); RBC Distribution Width SD 56.6 fl (35.1-43.9); Red Blood Count 3.86 M/mm3 (4.2-5.4); White Blood Count 4.2 K/mm3 (4.4-11.0)
== END 2021-07-24 23:59 ==
LOC: BIMLAB 15:53
PROVIDERS: PCP Internal Medicine
DX: G35 Multiple sclerosis (principal)
CPT/HCPCS: 36415; 85025

== ENCOUNTER 2021-07-27 08:57 | Outpatient (RCR) | payer OTHER, SELFPAY ==
[2021-07-27 12:19] LABS: Absolute Lymphocyte Count 0.85 X10^3/uL (0.83-4.51); Absolute Neutrophil Count 3.3 X10^3/uL (2.0-7.7); Basophil# 0.02 X10^3/uL; Basophil% 0.4 % (0-1); Eosinophil# 0.05 X10^3/uL; Eosinophils% 1.1 % (0-5); Hematocrit 37.6 % (37-47); Hemoglobin 12.8 g/dL (12.0-15.0); Lymphocyte # 0.85 X10^3/ul (0.83-4.51); Lymphocyte % 18.9 % (19-41); Mean Corpuscular Hgb 33.5 pg (27.0-32.0); Mean Corpuscular Volume 98.4 fL (81-99); Mean Platelet Vol. 8.9 fl (6.2-12.0); Monocyte% 6.7 % (0-10); NRBC Flagged by Analyzer 0 % (0-5); Neutrophil # 3.25 X10^3/uL (2.7-7.7); Neutrophil % 72.5 % (47-70); Platelet Count 180 K/mm3 (150-450); RBC Distribution Width CV 14.9 % (11.6-14.6); RBC Distribution Width SD 53.5 fl (35.1-43.9); Red Blood Count 3.82 M/mm3 (4.2-5.4); White Blood Count 4.5 K/mm3 (4.4-11.0)
[2021-07-27 12:31] LABS: Vitamin B12 327 pg/mL (211-911); Vitamin D,25 Hydroxy 73.8 ng/mL
[2021-07-27 16:11] LABS: Free T3 2.2 pg/mL (2.18-3.98); T4 Free Direct 0.79 ng/dL (0.76-1.46); Thyroid Stim Hormone (TSH) 0.99 uIU/mL (0.358-3.74)
== END 2021-08-24 23:59 ==
LOC: BIMLAB 08:57
PROVIDERS: Internal Medicine Endocrinology, Diabetes & Metabolism; PCP Internal Medicine
DX: G35 Multiple sclerosis (principal)
CPT/HCPCS: 36415; 82306; 82607; 84439; 84443; 84481; 85025

== ENCOUNTER 2021-09-05 09:30 | Outpatient (RCR) | payer OTHER, SELFPAY ==
[2021-09-05 12:10] LABS: Absolute Lymphocyte Count 1.49 X10^3/uL (0.83-4.51); Absolute Neutrophil Count 3.2 X10^3/uL (2.0-7.7); Basophil# 0.03 X10^3/uL; Basophil% 0.6 % (0-1); Eosinophil# 0.04 X10^3/uL; Eosinophils% 0.8 % (0-5); Hematocrit 39.8 % (37-47); Hemoglobin 13.1 g/dL (12.0-15.0); Lymphocyte # 1.49 X10^3/ul (0.83-4.51); Mean Corp Hgb Conc 32.9 g/dL (32-36); Mean Corpuscular Hgb 32.5 pg (27.0-32.0); Mean Corpuscular Volume 98.8 fL (81-99); Monocyte# 0.34 X10^3/uL; Monocyte% 6.6 % (0-10); NRBC Flagged by Analyzer 0 % (0-5); Neutrophil # 3.23 X10^3/uL (2.7-7.7); Neutrophil % 62.8 % (47-70); Platelet Count 190 K/mm3 (150-450); RBC Distribution Width CV 13.3 % (11.6-14.6); RBC Distribution Width SD 48.8 fl (35.1-43.9); Red Blood Count 4.03 M/mm3 (4.2-5.4); White Blood Count 5.1 K/mm3 (4.4-11.0)
[2021-09-05 12:29] LABS: Cholesterol 158 mg/dL (200); High Density Lipoprotein 43 mg/dL; Triglycerides 83 mg/dL; Very Low Density Lipoprotein 17 mg/dL (5-40)
== END 2021-09-24 23:59 | disposition home or self-care (01) ==
LOC: BIMLAB 09:30
PROVIDERS: PCP Internal Medicine; Visit Provider Psychiatry & Neurology Neurology
DX: G35 Multiple sclerosis (principal); E27.8 Other specified disorders of adrenal gland; I10 Essential (primary) hypertension; R73.03 Prediabetes; E03.9 Hypothyroidism, unspecified
CPT/HCPCS: 36415; 80061; 85025

== ENCOUNTER 2021-09-13 10:08 | Outpatient (CLI) | payer OTHER, SELFPAY | END 2021-09-13 23:59 | disposition short-term general hospital (02) | LOC: LABSPEC 10:08 | PROVIDERS: PCP Internal Medicine; Referring Provider Physician Assistant; Visit Provider Physician Assistant | DX: Z20.822 Contact with and (suspected) exposure to COVID-19 (principal) | CPT/HCPCS: 87635; U0003; U0005 ==

== ENCOUNTER 2021-10-01 20:00 | Outpatient (CLI) | payer OTHER, SELFPAY | END 2021-10-01 23:59 | disposition home or self-care (01) | PROVIDERS: PCP Internal Medicine; Visit Provider Internal Medicine | DX: G47.10 Hypersomnia, unspecified (principal) ==

== ENCOUNTER 2021-10-25 10:47 | Outpatient (RCR) | payer OTHER, SELFPAY ==
[2021-10-25 12:31] LABS: Absolute Lymphocyte Count 1.26 X10^3/uL (0.83-4.51); Absolute Neutrophil Count 4.1 X10^3/uL (2.0-7.7); Basophil# 0.04 X10^3/uL; Basophil% 0.7 % (0-1); Eosinophil# 0.04 X10^3/uL; Eosinophils% 0.7 % (0-5); Hematocrit 38.1 % (37-47); Hemoglobin 12.8 g/dL (12.0-15.0); Lymphocyte # 1.26 X10^3/ul (0.83-4.51); Lymphocyte % 21.8 % (19-41); Mean Corp Hgb Conc 33.6 g/dL (32-36); Mean Corpuscular Hgb 34.2 pg (27.0-32.0); Mean Corpuscular Volume 101.9 fL (81-99); Mean Platelet Vol. 9.1 fl (6.2-12.0); Monocyte# 0.37 X10^3/uL; Monocyte% 6.4 % (0-10); NRBC Flagged by Analyzer 0 % (0-5); Neutrophil # 4.05 X10^3/uL (2.7-7.7); Neutrophil % 69.9 % (47-70); Platelet Count 213 K/mm3 (150-450); RBC Distribution Width CV 12.5 % (11.6-14.6); RBC Distribution Width SD 46.9 fl (35.1-43.9); Red Blood Count 3.74 M/mm3 (4.2-5.4); White Blood Count 5.8 K/mm3 (4.4-11.0)
== END 2021-11-22 23:59 | disposition home or self-care (01) ==
LOC: BIMLAB 10:47
PROVIDERS: PCP Internal Medicine; Visit Provider Psychiatry & Neurology Neurology
DX: G35 Multiple sclerosis (principal)
CPT/HCPCS: 36415; 85025; 95810

== ENCOUNTER 2021-10-26 10:04 | Outpatient (CLI) | payer OTHER, SELFPAY ==
[2021-10-26 11:53] LABS: Vitamin D,25 Hydroxy 87.6 ng/mL
[2021-10-26 11:59] LABS: ALB/GLOB Ratio 1.2 RATIO (0.9-2.4); AST(SGOT) 9 U/L (15-37); Alanine Aminotransfer ALT/SGPT 15 U/L (13-56); Albumin, Serum 3.7 g/dL (3.2-5.0); Alkaline Phosphatase 68 U/L (45-117); Anion Gap 4 (5-15); BUN 17 mg/dL (7-18); BUN/Creat Ratio 14.3 RATIO (10-20); Calcium,Total 9.2 mg/dL (8.5-10.1); Chloride 109 mmol/L (98-107); Cholesterol 158 mg/dL (200); Creatinine, Serum 1.19 mg/dL (0.55-1.02); EST Glomerular Filtration Rate 51 mL/min (>60); Est Glom Filt Rate - Afr Amer 61 mL/min (>60); Free T3 3.2 pg/mL (2.18-3.98); Globulin 3.1 g/dL (2.2-4.2); Glucose 94 mg/dL (74-106); High Density Lipoprotein 40 mg/dL; Potassium 3.9 mmol/L (3.5-5.1); Protein, Total 6.8 g/dL (6.4-8.2); Sodium Level 139 mmol/L (136-145); T4 Free Direct 0.85 ng/dL (0.76-1.46); Thyroid Stim Hormone (TSH) 1.15 uIU/mL (0.358-3.74); Triglycerides 64 mg/dL; Very Low Density Lipoprotein 13 mg/dL (5-40)
[2021-10-26 12:00] LABS: Microalbumin,Random Urine 5.3 mg/L (NO RANGE EST.)
[2021-10-26 12:03] LABS: Hemoglobin A1c 5.1 % (3.8-5.6)
== END 2021-10-26 23:59 | disposition home or self-care (01) ==
PROVIDERS: PCP Internal Medicine; Referring Provider Internal Medicine Endocrinology, Diabetes & Metabolism; Visit Provider Internal Medicine Endocrinology, Diabetes & Metabolism
DX: E03.9 Hypothyroidism, unspecified (principal); G35 Multiple sclerosis; E27.9 Disorder of adrenal gland, unspecified; I10 Essential (primary) hypertension; R73.03 Prediabetes
CPT/HCPCS: 36415; 80053; 80061; 82043; 82306; 83036; 84439; 84443; 84481

== ENCOUNTER 2021-11-28 12:21 | Outpatient (RCR) | payer OTHER, SELFPAY ==
[2021-11-28 14:55] LABS: Absolute Lymphocyte Count 1.52 X10^3/uL (0.83-4.51); Absolute Neutrophil Count 3.1 X10^3/uL (2.0-7.7); Basophil# 0.04 X10^3/uL; Basophil% 0.8 % (0-1); Eosinophil# 0.06 X10^3/uL; Eosinophils% 1.2 % (0-5); Hematocrit 39.6 % (37-47); Hemoglobin 12.8 g/dL (12.0-15.0); Lymphocyte # 1.52 X10^3/ul (0.83-4.51); Lymphocyte % 30.2 % (19-41); Mean Corp Hgb Conc 32.3 g/dL (32-36); Mean Corpuscular Hgb 32.7 pg (27.0-32.0); Mean Platelet Vol. 8.9 fl (6.2-12.0); Monocyte# 0.34 X10^3/uL; Monocyte% 6.7 % (0-10); NRBC Flagged by Analyzer 0 % (0-5); Neutrophil # 3.07 X10^3/uL (2.7-7.7); Neutrophil % 60.9 % (47-70); Platelet Count 214 K/mm3 (150-450); RBC Distribution Width CV 12.5 % (11.6-14.6); Red Blood Count 3.92 M/mm3 (4.2-5.4)
== END 2021-12-22 23:59 ==
LOC: BIMLAB 12:21
PROVIDERS: PCP Internal Medicine
DX: G35 Multiple sclerosis (principal)
CPT/HCPCS: 36415; 85025

== ENCOUNTER 2021-12-26 09:12 | Outpatient (RCR) | payer OTHER, SELFPAY ==
[2021-12-26 12:24] LABS: Absolute Lymphocyte Count 1.31 X10^3/uL (0.83-4.51); Absolute Neutrophil Count 3.3 X10^3/uL (2.0-7.7); Basophil# 0.04 X10^3/uL; Basophil% 0.8 % (0-1); Eosinophil# 0.05 X10^3/uL; Hematocrit 39.5 % (37-47); Hemoglobin 12.6 g/dL (12.0-15.0); Lymphocyte # 1.31 X10^3/ul (0.83-4.51); Lymphocyte % 25.6 % (19-41); Mean Corp Hgb Conc 31.9 g/dL (32-36); Mean Corpuscular Hgb 32.1 pg (27.0-32.0); Mean Corpuscular Volume 100.8 fL (81-99); Mean Platelet Vol. 8.9 fl (6.2-12.0); Monocyte# 0.38 X10^3/uL; Monocyte% 7.4 % (0-10); NRBC Flagged by Analyzer 0 % (0-5); Neutrophil # 3.32 X10^3/uL (2.7-7.7); Platelet Count 223 K/mm3 (150-450); RBC Distribution Width CV 12.4 % (11.6-14.6); RBC Distribution Width SD 46.5 fl (35.1-43.9); Red Blood Count 3.92 M/mm3 (4.2-5.4); White Blood Count 5.1 K/mm3 (4.4-11.0)
== END 2022-01-22 23:59 ==
LOC: BIMLAB 09:12
PROVIDERS: PCP Internal Medicine
DX: G35 Multiple sclerosis (principal)
CPT/HCPCS: 36415; 85025

== ENCOUNTER → 2022-01-24 | Outpatient (CLI) | payer OTHER, SELFPAY ==
[2022-01-24 15:33] LABS: Absolute Neutrophil Count 3.5 X10^3/uL (2.0-7.7); Basophil# 0.04 X10^3/uL; Basophil% 0.8 % (0-1); Eosinophils% 1.9 % (0-5); Hematocrit 38.2 % (37-47); Hemoglobin 12.5 g/dL (12.0-15.0); Lymphocyte % 26.4 % (19-41); Mean Corp Hgb Conc 32.7 g/dL (32-36); Mean Corpuscular Volume 97.7 fL (81-99); Mean Platelet Vol. 9.1 fl (6.2-12.0); Monocyte% 5.6 % (0-10); NRBC Flagged by Analyzer 0 % (0-5); Neutrophil # 3.45 X10^3/uL (2.7-7.7); Neutrophil % 64.9 % (47-70); Platelet Count 232 K/mm3 (150-450); RBC Distribution Width CV 12.4 % (11.6-14.6); RBC Distribution Width SD 44.6 fl (35.1-43.9); Red Blood Count 3.91 M/mm3 (4.2-5.4); White Blood Count 5.3 K/mm3 (4.4-11.0)
== END | disposition home or self-care (01) ==
LOC: BIMLAB 12:19
PROVIDERS: PCP Internal Medicine
DX: G35 Multiple sclerosis (principal)
CPT/HCPCS: 36415; 85025

== ENCOUNTER → 2022-02-07 | Outpatient (CLI) | payer OTHER, SELFPAY ==
--- NOTE | 2022-02-07 07:10 | CT_ITS ---
STUDY: CT ABDOMEN WITHOUT CONTRAST REASON FOR EXAM: Female, 51 years old. ADRENAL MASS RADIATION DOSAGE (If Supplied By Facility): CTDIvol = ( 23.27 ) mGy, DLP = ( 743.89 ) mGycm TECHNIQUE: Transaxial images were obtained without intravenous contrast, and without oral contrast. Sagittal and coronal images were reconstructed. Individualized dose optimization techniques were used for this CT. COMPARISON: Comparison is made with prior study 06/11/2019. FINDINGS: The visualized lung bases are unremarkable. The visualized portions of the heart are within normal limits. Normal liver. There are surgical clips in the gallbladder fossa consistent with a prior cholecystectomy. Normal spleen. Normal pancreas. There is a small, circumscribed, smooth, low attenuation left adrenal mass, consistent with an adrenal adenoma. It presently measures 1.9 size by 2.7 cm x 3 cm. This has decreased minimally in size as compared to prior study. Normal right adrenal gland. Normal right kidney. Normal left kidney. Normal visualized stomach. Normal small intestine. Normal colon. The appendix is visualized and appears normal. Normal abdominal aorta. Normal inferior vena cava. Normal retroperitoneum. Prior hysterectomy. Normal abdominal wall. Normal osseous structures. CT/Abdomen without IV Contrast IMPRESSION: Persistent low density nodule in the left adrenal gland. There has been minimal decreased in size as compared to prior study. Electronically Signed: Raheem Hood MD at 8:19 EDT ,
== END | disposition home or self-care (01) ==
LOC: CT 07:06
PROVIDERS: PCP Internal Medicine; Referring Provider Internal Medicine Endocrinology, Diabetes & Metabolism; Visit Provider Internal Medicine Endocrinology, Diabetes & Metabolism
DX: E27.8 Other specified disorders of adrenal gland (principal)
CPT/HCPCS: 74150

== ENCOUNTER → 2022-02-22 | Outpatient (CLI) | payer OTHER, SELFPAY ==
[2022-02-22 09:24] LABS: Absolute Lymphocyte Count 1.54 X10^3/uL (0.83-4.51); Absolute Neutrophil Count 3.8 X10^3/uL (2.0-7.7); Basophil# 0.04 X10^3/uL; Basophil% 0.7 % (0-1); Eosinophil# 0.07 X10^3/uL; Eosinophils% 1.2 % (0-5); Hematocrit 37.5 % (37-47); Hemoglobin 12.2 g/dL (12.0-15.0); Lymphocyte # 1.54 X10^3/ul (0.83-4.51); Lymphocyte % 26.4 % (19-41); Mean Corp Hgb Conc 32.5 g/dL (32-36); Mean Corpuscular Hgb 32.2 pg (27.0-32.0); Mean Corpuscular Volume 98.9 fL (81-99); Mean Platelet Vol. 8.5 fl (6.2-12.0); Monocyte# 0.34 X10^3/uL; Monocyte% 5.8 % (0-10); NRBC Flagged by Analyzer 0 % (0-5); Neutrophil # 3.82 X10^3/uL (2.7-7.7); Neutrophil % 65.6 % (47-70); Platelet Count 227 K/mm3 (150-450); RBC Distribution Width CV 12.7 % (11.6-14.6); RBC Distribution Width SD 45.9 fl (35.1-43.9); Red Blood Count 3.79 M/mm3 (4.2-5.4); White Blood Count 5.8 K/mm3 (4.4-11.0)
== END | disposition home or self-care (01) ==
LOC: LAB 11:09
PROVIDERS: PCP Internal Medicine; Visit Provider Psychiatry & Neurology Neurology
DX: G35 Multiple sclerosis (principal)
CPT/HCPCS: 36415; 85025

== ENCOUNTER → 2022-02-22 | Outpatient (CLI) | payer OTHER, SELFPAY ==
--- NOTE | 2022-02-22 07:22 | MRI_ITS ---
STUDY: MRI LUMBAR SPINE WITHOUT CONTRAST REASON FOR EXAM: Female, 51 years old. LUMBAR RADICULOPATHY TECHNIQUE: Standardized fat and water weighted pulse sequences were obtained in the sagittal and axial planes. COMPARISON: None FINDINGS: T12-L1: Normal endplates. Normal disc height, hydration and morphology. Normal bilateral facet joints. Normal central canal and bilateral lateral recesses. Normal bilateral intervertebral neural foramina. Normal lumbar lordosis. There is no substantial scoliosis. Normal conus medullaris that terminates at the L1/2 level. Within the distal spinal cord at the level of T12 is a faint 5 mm high T2 signal region. L1-2: Disc desiccation with preserved disc space is present. No significant spinal canal narrowing or foraminal narrowing. L2-3: Normal endplates. Normal disc height, hydration and morphology. Normal bilateral facet joints. Normal central canal and bilateral lateral recesses. Normal bilateral intervertebral neural foramina. L3-4: Normal endplates. Normal disc height, hydration and morphology. Normal bilateral facet joints. Normal central canal and bilateral lateral recesses. Normal bilateral intervertebral neural foramina. L4-5: Normal endplates. Normal disc height, hydration and morphology. Normal bilateral facet joints. Normal central canal and bilateral lateral recesses. Normal bilateral intervertebral neural foramina. L5-S1: Normal endplates. Normal disc height, hydration and morphology. Mildly degenerative bilateral facet joints. Normal central canal and bilateral lateral recesses. Normal bilateral intervertebral neural foramina. Normal visualized sacral ala. Normal visualized paraspinous soft tissue structures. MRI/Spine Lumbar (Routine) IMPRESSION: 1. No evidence of spinal canal narrowing or foraminal narrowing to suggest a cause for radiculopathy. Mild degenerative L5/S1 facet joints with sclerosis. 2. Incidentally noted 5 mm round faint high T2 signal within the distal spinal cord at level of T12. Recommend follow-up imaging MRI lumbar with contrast to exclude enhancing lesion. Electronically Signed: Bret Pinedo DO at 12:31 EDT ,
== END | disposition home or self-care (01) ==
LOC: MRI 07:09
PROVIDERS: PCP Internal Medicine; Referring Provider Anesthesiology Pain Medicine; Visit Provider Anesthesiology Pain Medicine
DX: M54.16 Radiculopathy, lumbar region (principal); M54.41 Lumbago with sciatica, right side
CPT/HCPCS: 72148

== ENCOUNTER → 2022-03-30 | Outpatient (CLI) | payer OTHER, SELFPAY ==
[2022-03-30 12:20] LABS: Absolute Lymphocyte Count 1.83 X10^3/uL (0.83-4.51); Basophil# 0.03 X10^3/uL; Basophil% 0.5 % (0-1); Eosinophil# 0.05 X10^3/uL; Eosinophils% 0.8 % (0-5); Hematocrit 38.4 % (37-47); Hemoglobin 12.9 g/dL (12.0-15.0); Lymphocyte # 1.83 X10^3/ul (0.83-4.51); Mean Corp Hgb Conc 33.6 g/dL (32-36); Mean Corpuscular Hgb 32.9 pg (27.0-32.0); Mean Platelet Vol. 8.6 fl (6.2-12.0); Monocyte# 0.42 X10^3/uL; Monocyte% 6.7 % (0-10); NRBC Flagged by Analyzer 0 % (0-5); Neutrophil # 3.96 X10^3/uL (2.7-7.7); Neutrophil % 62.8 % (47-70); Platelet Count 215 K/mm3 (150-450); RBC Distribution Width CV 13.2 % (11.6-14.6); RBC Distribution Width SD 47.5 fl (35.1-43.9); Red Blood Count 3.92 M/mm3 (4.2-5.4); White Blood Count 6.3 K/mm3 (4.4-11.0)
== END | disposition home or self-care (01) ==
LOC: LAB 12:05
PROVIDERS: PCP Internal Medicine; Visit Provider Psychiatry & Neurology Neurology
DX: G35 Multiple sclerosis (principal)
CPT/HCPCS: 36415; 85025

== ENCOUNTER 2022-05-01 11:39 | Outpatient (RCR) | payer OTHER, SELFPAY ==
[2022-05-01 15:34] LABS: Absolute Lymphocyte Count 1.78 X10^3/uL (0.83-4.51); Basophil# 0.05 X10^3/uL; Basophil% 0.8 % (0-1); Eosinophil# 0.06 X10^3/uL; Hematocrit 39.4 % (37-47); Hemoglobin 13.2 g/dL (12.0-15.0); Lymphocyte # 1.78 X10^3/ul (0.83-4.51); Lymphocyte % 28.3 % (19-41); Mean Corp Hgb Conc 33.5 g/dL (32-36); Mean Corpuscular Hgb 32.6 pg (27.0-32.0); Mean Corpuscular Volume 97.3 fL (81-99); Monocyte# 0.36 X10^3/uL; Monocyte% 5.7 % (0-10); NRBC Flagged by Analyzer 0 % (0-5); Neutrophil # 4.01 X10^3/uL (2.7-7.7); Neutrophil % 63.9 % (47-70); Platelet Count 243 K/mm3 (150-450); RBC Distribution Width CV 13.2 % (11.6-14.6); RBC Distribution Width SD 47.1 fl (35.1-43.9); Red Blood Count 4.05 M/mm3 (4.2-5.4); White Blood Count 6.3 K/mm3 (4.4-11.0)
[2022-05-01 16:02] LABS: ALB/GLOB Ratio 1.1 RATIO (0.9-2.4); AST(SGOT) 20 U/L (15-37); Alanine Aminotransfer ALT/SGPT 21 U/L (13-56); Albumin, Serum 3.7 g/dL (3.2-5.0); Alkaline Phosphatase 69 U/L (45-117); Anion Gap 10 (5-15); BUN 18 mg/dL (7-18); BUN/Creat Ratio 15.9 RATIO (10-20); Calcium,Total 9.4 mg/dL (8.5-10.1); Chloride 104 mmol/L (98-107); Creatinine, Serum 1.13 mg/dL (0.55-1.02); EST Glomerular Filtration Rate 54 mL/min (>60); Est Glom Filt Rate - Afr Amer 65 mL/min (>60); Free T3 3.4 pg/mL (2.18-3.98); Globulin 3.5 g/dL (2.2-4.2); Glucose 90 mg/dL (74-106); Potassium 4.5 mmol/L (3.5-5.1); Protein, Total 7.2 g/dL (6.4-8.2); Sodium Level 137 mmol/L (136-145); T4 Free Direct 0.91 ng/dL (0.76-1.46); Thyroid Stim Hormone (TSH) 1.11 uIU/mL (0.358-3.74)
== END 2022-05-24 23:59 ==
LOC: BIMLAB 11:39
PROVIDERS: PCP Internal Medicine; Referring Provider Psychiatry & Neurology Neurology; Visit Provider Psychiatry & Neurology Neurology
DX: G35 Multiple sclerosis (principal)
CPT/HCPCS: 36415; 80053; 84439; 84443; 84481; 85025

== ENCOUNTER → 2022-05-10 | Outpatient (CLI) | payer OTHER, SELFPAY | END | disposition home or self-care (01) | LOC: SL 08:19 | PROVIDERS: PCP Internal Medicine; Visit Provider Internal Medicine | DX: G47.33 Obstructive sleep apnea (adult) (pediatric) (principal) ==

== ENCOUNTER 2022-06-11 09:01 | Outpatient (RCR) | payer OTHER, SELFPAY ==
[2022-06-11 12:34] LABS: Absolute Lymphocyte Count 2.02 X10^3/uL (0.83-4.51); Absolute Neutrophil Count 4.8 X10^3/uL (2.0-7.7); Basophil# 0.06 X10^3/uL; Basophil% 0.8 % (0-1); Eosinophil# 0.08 X10^3/uL; Eosinophils% 1.1 % (0-5); Hematocrit 38.6 % (37-47); Hemoglobin 12.7 g/dL (12.0-15.0); Lymphocyte # 2.02 X10^3/ul (0.83-4.51); Lymphocyte % 27.4 % (19-41); Mean Corp Hgb Conc 32.9 g/dL (32-36); Mean Corpuscular Hgb 32.7 pg (27.0-32.0); Mean Corpuscular Volume 99.5 fL (81-99); Mean Platelet Vol. 8.9 fl (6.2-12.0); Monocyte# 0.41 X10^3/uL; Monocyte% 5.6 % (0-10); NRBC Flagged by Analyzer 0 % (0-5); Neutrophil # 4.76 X10^3/uL (2.7-7.7); Neutrophil % 64.6 % (47-70); Platelet Count 253 K/mm3 (150-450); RBC Distribution Width CV 13.3 % (11.6-14.6); RBC Distribution Width SD 48.9 fl (35.1-43.9); Red Blood Count 3.88 M/mm3 (4.2-5.4); White Blood Count 7.4 K/mm3 (4.4-11.0)
== END 2022-06-24 23:59 ==
LOC: BIMLAB 09:01
PROVIDERS: PCP Internal Medicine; Referring Provider Psychiatry & Neurology Neurology; Visit Provider Psychiatry & Neurology Neurology
DX: G35 Multiple sclerosis (principal)
CPT/HCPCS: 36415; 85025

== ENCOUNTER 2022-07-11 10:18 | Outpatient (RCR) | payer OTHER, SELFPAY ==
[2022-07-11 12:21] LABS: Absolute Lymphocyte Count 1.55 X10^3/uL (0.83-4.51); Absolute Neutrophil Count 4.1 X10^3/uL (2.0-7.7); Basophil# 0.04 X10^3/uL; Basophil% 0.7 % (0-1); Eosinophil# 0.06 X10^3/uL; Hematocrit 39.9 % (37-47); Hemoglobin 13.1 g/dL (12.0-15.0); Lymphocyte # 1.55 X10^3/ul (0.83-4.51); Lymphocyte % 25.4 % (19-41); Mean Corp Hgb Conc 32.8 g/dL (32-36); Mean Corpuscular Hgb 33.1 pg (27.0-32.0); Mean Corpuscular Volume 100.8 fL (81-99); Mean Platelet Vol. 8.8 fl (6.2-12.0); Monocyte# 0.36 X10^3/uL; Monocyte% 5.9 % (0-10); NRBC Flagged by Analyzer 0 % (0-5); Neutrophil # 4.07 X10^3/uL (2.7-7.7); Neutrophil % 66.7 % (47-70); Platelet Count 237 K/mm3 (150-450); RBC Distribution Width CV 13.2 % (11.6-14.6); RBC Distribution Width SD 49.1 fl (35.1-43.9); Red Blood Count 3.96 M/mm3 (4.2-5.4); White Blood Count 6.1 K/mm3 (4.4-11.0)
== END 2022-07-24 23:59 ==
LOC: BIMLAB 10:18
PROVIDERS: PCP Internal Medicine; Referring Provider Psychiatry & Neurology Neurology; Visit Provider Psychiatry & Neurology Neurology
DX: G35 Multiple sclerosis (principal)
CPT/HCPCS: 36415; 85025

== ENCOUNTER → 2022-10-26 | Outpatient (CLI) | payer OTHER, SELFPAY ==
[2022-10-26 12:23] LABS: Hemoglobin A1c 5.2 % (3.8-5.6)
[2022-10-26 12:26] LABS: ALB/GLOB Ratio 1.1 RATIO (0.9-2.4); AST(SGOT) 19 U/L (15-37); Alanine Aminotransfer ALT/SGPT 23 U/L (13-56); Albumin, Serum 3.6 g/dL (3.2-5.0); Alkaline Phosphatase 73 U/L (45-117); Anion Gap 7 (5-15); BUN 14 mg/dL (7-18); BUN/Creat Ratio 11.6 RATIO (10-20); Calcium,Total 9.3 mg/dL (8.5-10.1); Chloride 106 mmol/L (98-107); Creatinine, Serum 1.21 mg/dL (0.55-1.02); EST Glomerular Filtration Rate 49 mL/min (>60); Est Glom Filt Rate - Afr Amer 60 mL/min (>60); Globulin 3.4 g/dL (2.2-4.2); Glucose 83 mg/dL (74-106); Potassium 3.9 mmol/L (3.5-5.1); Sodium Level 139 mmol/L (136-145); T4 Free Direct 0.86 ng/dL (0.76-1.46); Thyroid Stim Hormone (TSH) 0.24 uIU/mL (0.358-3.74)
[2022-10-28 08:30] LABS: Vitamin D,25 Hydroxy 77.8 ng/mL
== END | disposition home or self-care (01) ==
LOC: LAB 11:46
PROVIDERS: PCP Internal Medicine; Visit Provider Internal Medicine Endocrinology, Diabetes & Metabolism
DX: E03.9 Hypothyroidism, unspecified (principal); G35 Multiple sclerosis; E27.8 Other specified disorders of adrenal gland; R73.03 Prediabetes; E55.9 Vitamin D deficiency, unspecified
CPT/HCPCS: 36415; 80053; 82306; 83036; 84439; 84443

== ENCOUNTER → 2022-12-10 | Outpatient (CLI) | payer OTHER, SELFPAY ==
--- NOTE | 2022-12-10 17:20 | MRI_ITS ---
INDICATION: MS- follow-up -- new doctor -- new med EXAMINATION: MRI - MR Spine Cervical WO/W Contrast TECHNIQUE: Multiplanar and multisequence MR images of the cervical spine were performed. IV Contrast Dosage and Agent: Gadolinium based IV contrast gadolinium based IV contrast. COMPARISON: Prior studies are not available FINDINGS: VERTEBRAE: Normal vertebral bodies and posterior elements. VERTEBRAL ALIGNMENT: Normal, including the craniocervical junction and cervicothoracic junction. No spondylolisthesis. There is preservation of the normal cervical lordosis. CERVICAL SPINAL CORD: Demyelinating lesions in the cervical spinal cord at C5-6 and in the upper thoracic spinal cord at T2-3 measuring respectively 14 mm and 7 mm in craniocaudal dimension without abnormal enhancement after contrast administration. C2/C3: Normal disc height and morphology. Normal spinal canal and neuroforamina. C3/C4: Normal disc height and morphology. Normal spinal canal and neuroforamina. C4/C5: Normal disc height and morphology. Normal spinal canal and neuroforamina. C5/C6: Right paracentral disc herniation impinging on the right C6 nerve root. C6/C7: Normal disc height and morphology. Normal spinal canal and neuroforamina. C7/T1: Normal disc height and morphology. Normal spinal canal and neuroforamina. NECK SOFT TISSUES: No prevertebral soft tissue swelling. There is no cervical adenopathy. MRI/Spine Cervical W/WO Contrast IMPRESSION: Right paracentral disc herniation impinging on the right C6 nerve root. Demyelinating lesions in the cervical spinal cord at C5-6 and in the upper thoracic spinal cord at T2-3 measuring respectively 14 mm and 7 mm in craniocaudal dimension without abnormal enhancement after contrast administration. Electronically Signed: Marleny Storm MD at 5:22 EDT ,
--- NOTE | 2022-12-10 17:20 | MRI_ITS ---
INDICATION: MS- follow-up -- new doctor -- new med EXAMINATION: MRI - MR Brain WO/W Contrast TECHNIQUE: Multiplanar and multisequence MR images of the brain were obtained without and with gadolinium. IV Contrast Dosage and Agent: None. COMPARISON: None. FINDINGS: BRAIN PARENCHYMA: No MRI evidence of hemorrhage. No evidence of acute infarct. No intracranial mass or mass effect. There are multiple small white matter lesions in the corpus callosum, Centrum semiovale, periventricular regions are noted bilaterally, some of these lesions is perpendicular to the ventricular wall, these lesions are compatible with demyelinating disease. None of the lesions show enhancement after contrast administration. Normal sella turcica, pituitary gland, infundibular stalk, optic chiasm and hypothalamus. Posterior fossa structures are unremarkable. INTERNAL AUDITORY CANALS: The internal auditory canals are well visualized and patent. No mass identified. CSF SPACES: Appropriate for age. No hydrocephalus. Basal cisterns are patent. VASCULAR SYSTEM: Normal flow voids in the major intracranial circulation. CALVARIUM, SKULL BASE, PARANASAL SINUSES AND MASTOID AIR CELLS: Clear. No expansile changes. ORBITS: Both globes, extraocular muscles, optic nerves and retrobulbar fat appear unremarkable. MRI/Brain W/WO Contrast IMPRESSION: There are multiple small white matter lesions in the corpus callosum, Centrum semiovale, periventricular regions are noted bilaterally, some of these lesions is perpendicular to the ventricular wall, these lesions are compatible with demyelinating disease. None of the lesions show enhancement after contrast administration. Electronically Signed: Marleny Storm MD at 5:13 EDT ,
[2022-12-11 14:40] LABS: CREATININE FINGERSTICK 1.3 mg/dL (0.55-1.02)
== END | disposition home or self-care (01) ==
PROVIDERS: PCP Internal Medicine
DX: G35 Multiple sclerosis (principal)
CPT/HCPCS: 70553; 72156; A9575

== ENCOUNTER → 2022-12-12 | Outpatient (CLI) | payer OTHER, SELFPAY ==
[2022-12-12 12:29] LABS: Free T3 2.4 pg/mL (2.18-3.98); T4 Free Direct 1.26 ng/dL (0.76-1.46); Thyroid Stim Hormone (TSH) 0.63 uIU/mL (0.358-3.74)
== END | disposition home or self-care (01) ==
PROVIDERS: PCP Internal Medicine; Referring Provider Internal Medicine Endocrinology, Diabetes & Metabolism; Visit Provider Internal Medicine Endocrinology, Diabetes & Metabolism
DX: E03.9 Hypothyroidism, unspecified (principal); G35 Multiple sclerosis; E27.8 Other specified disorders of adrenal gland; R73.03 Prediabetes; E55.9 Vitamin D deficiency, unspecified
CPT/HCPCS: 36415; 84439; 84443; 84481

== ENCOUNTER → 2023-01-17 | Outpatient (CLI) | payer OTHER, SELFPAY ==
[2023-01-17 12:33] LABS: Absolute Lymphocyte Count 0.86 X10^3/uL (0.83-4.51); Absolute Neutrophil Count 3.5 X10^3/uL (2.0-7.7); Basophil# 0.04 X10^3/uL; Basophil% 0.8 % (0-1); Eosinophil# 0.07 X10^3/uL; Eosinophils% 1.4 % (0-5); Hemoglobin 12.8 g/dL (12.0-15.0); Lymphocyte # 0.86 X10^3/ul (0.83-4.51); Lymphocyte % 17.8 % (19-41); Mean Corp Hgb Conc 32.8 g/dL (32-36); Mean Corpuscular Hgb 35.3 pg (27.0-32.0); Mean Corpuscular Volume 107.4 fL (81-99); Mean Platelet Vol. 8.7 fl (6.2-12.0); Monocyte# 0.37 X10^3/uL; Monocyte% 7.6 % (0-10); NRBC Flagged by Analyzer 0 % (0-5); Neutrophil # 3.49 X10^3/uL (2.7-7.7); Neutrophil % 72.2 % (47-70); Platelet Count 251 K/mm3 (150-450); RBC Distribution Width CV 12.1 % (11.6-14.6); RBC Distribution Width SD 48.3 fl (35.1-43.9); Red Blood Count 3.63 M/mm3 (4.2-5.4); White Blood Count 4.8 K/mm3 (4.4-11.0)
[2023-01-17 13:14] LABS: AST(SGOT) 14 U/L (15-37); Alanine Aminotransfer ALT/SGPT 17 U/L (13-56); Albumin, Serum 3.6 g/dL (3.2-5.0); Alkaline Phosphatase 75 U/L (45-117); Anion Gap 7 (5-15); BUN 16 mg/dL (7-18); BUN/Creat Ratio 10.8 RATIO (10-20); Chloride 105 mmol/L (98-107); Creatinine, Serum 1.48 mg/dL (0.55-1.02); EST Glomerular Filtration Rate 39 mL/min (>60); Est Glom Filt Rate - Afr Amer 47 mL/min (>60); Globulin 3.7 g/dL (2.2-4.2); Glucose 143 mg/dL (74-106); Potassium 3.7 mmol/L (3.5-5.1); Protein, Total 7.3 g/dL (6.4-8.2); Sodium Level 141 mmol/L (136-145)
== END | disposition home or self-care (01) ==
PROVIDERS: PCP Internal Medicine
DX: G35 Multiple sclerosis (principal); Z79.899 Other long term (current) drug therapy
CPT/HCPCS: 36415; 80053; 85025

== ENCOUNTER → 2023-03-15 | Outpatient (CLI) | payer OTHER, SELFPAY ==
[2023-03-15 12:52] LABS: Hemoglobin A1c 5.4 % (3.8-5.6)
[2023-03-15 12:56] LABS: ALB/GLOB Ratio 1.1 RATIO (0.9-2.4); AST(SGOT) 20 U/L (15-37); Alanine Aminotransfer ALT/SGPT 30 U/L (13-56); Albumin, Serum 3.9 g/dL (3.2-5.0); Alkaline Phosphatase 79 U/L (45-117); Anion Gap 6 (5-15); BUN 16 mg/dL (7-18); BUN/Creat Ratio 12.7 RATIO (10-20); Calcium,Total 9.2 mg/dL (8.5-10.1); Chloride 106 mmol/L (98-107); Cholesterol 188 mg/dL (200); Creatinine, Serum 1.26 mg/dL (0.55-1.02); EST Glomerular Filtration Rate 47 mL/min (>60); Est Glom Filt Rate - Afr Amer 57 mL/min (>60); Free T3 2.5 pg/mL (2.18-3.98); Globulin 3.6 g/dL (2.2-4.2); Glucose 86 mg/dL (74-106); High Density Lipoprotein 45 mg/dL; Potassium 4.2 mmol/L (3.5-5.1); Protein, Total 7.5 g/dL (6.4-8.2); Sodium Level 139 mmol/L (136-145); T4 Free Direct 0.99 ng/dL (0.76-1.46); Thyroid Stim Hormone (TSH) 2.24 uIU/mL (0.358-3.74); Triglycerides 148 mg/dL; Very Low Density Lipoprotein 30 mg/dL (5-40)
[2023-03-17 08:24] LABS: Vitamin D,25 Hydroxy 95.8 ng/mL
== END | disposition home or self-care (01) ==
LOC: LAB 11:47
PROVIDERS: PCP Internal Medicine; Referring Provider Internal Medicine Endocrinology, Diabetes & Metabolism; Visit Provider Internal Medicine Endocrinology, Diabetes & Metabolism
DX: E03.9 Hypothyroidism, unspecified (principal); G35 Multiple sclerosis; E27.8 Other specified disorders of adrenal gland; R73.03 Prediabetes; E55.9 Vitamin D deficiency, unspecified
CPT/HCPCS: 36415; 80053; 80061; 82306; 83036; 84439; 84443; 84481

== ENCOUNTER → 2023-05-15 | Outpatient (CLI) | payer OTHER, SELFPAY ==
[2023-05-15 14:58] LABS: Mucous, Urine 0 SEEN /hpf (<or=2+); Red Blood Cells-Urine 0 SEEN /hpf (0-5); White Blood Cells 0 SEEN /hpf (0-5)
[2023-05-15 16:37] LABS: Color, Urine Yellow (Yellow); Glucose, Dipstick Normal (Normal); Ketone-Dipstick Negative (Negative); Leukocyte Esterase-Dipstick Negative /ul (Negative); Nitrite-Dipstick Negative (Negative); Occult Blood-Urine 10 /ul (Negative); Protein-Dipstick Negative (Negative); Specific Gravity, Urine 1.015 (1.002-1.030); Urine Bilirubin Dipstick Negative (Negative); Urine Clarity Clear (Clear); Urine Urobilinogen Normal (Normal)
[2023-05-15 16:45] LABS: Bacteria RARE /hpf (None Seen); Squamous Epithelial Cells - UA 0-5 SEEN /hpf (5-10)
== END | disposition home or self-care (01) ==
LOC: LABSPEC 14:57
PROVIDERS: PCP Internal Medicine; Referring Provider Internal Medicine; Visit Provider Internal Medicine
DX: R35.0 Frequency of micturition (principal)
CPT/HCPCS: 81001; 87086

== ENCOUNTER 2023-07-10 16:57 | Emergency (ER) | payer OTHER, SELFPAY ==
[2023-07-10 16:58] VITALS: BP 130/81; PULSE 72; RESP 16; TEMP 36.6; O2SAT 100; BMI 41.2
--- NOTE | 2023-07-10 17:03 | EKG12_ITS ---
Test Reason : CP Blood Pressure : / mmHG Vent. Rate : 065 BPM Atrial Rate : 065 BPM P-R Int : 150 ms QRS Dur : 076 ms QT Int : 420 ms P-R-T Axes : 051 034 040 degrees QTc Int : 436 ms Normal sinus rhythm Normal ECG Confirmed by MIRA GARRISON, ADRIEN ([id number]), editor greeting card CHANTE GUEVARA ([id number]) on 07/16/2023 12:02:08 PM Referred By: Confirmed By:ADRIEN MEYERS MD
[2023-07-10 17:12] LABS: Absolute Lymphocyte Count 1.69 X10^3/uL (0.83-4.51); Absolute Neutrophil Count 5.1 X10^3/uL (2.0-7.7); Basophil# 0.04 X10^3/uL; Basophil% 0.5 % (0-1); Eosinophil# 0.08 X10^3/uL; Eosinophils% 1.1 % (0-5); Hematocrit 42.9 % (37-47); Lymphocyte # 1.69 X10^3/ul (0.83-4.51); Lymphocyte % 22.9 % (19-41); Mean Corp Hgb Conc 32.6 g/dL (32-36); Mean Corpuscular Hgb 33.3 pg (27.0-32.0); Mean Corpuscular Volume 102.1 fL (81-99); Mean Platelet Vol. 8.6 fl (6.2-12.0); Monocyte# 0.49 X10^3/uL; Monocyte% 6.6 % (0-10); NRBC Flagged by Analyzer 0 % (0-5); Neutrophil # 5.05 X10^3/uL (2.7-7.7); Neutrophil % 68.6 % (47-70); Platelet Count 264 K/mm3 (150-450); RBC Distribution Width CV 12.8 % (11.6-14.6); RBC Distribution Width SD 47.6 fl (35.1-43.9); White Blood Count 7.4 K/mm3 (4.4-11.0)
--- NOTE | 2023-07-10 17:15 | RAD_ITS ---
INDICATION: chest pain EXAMINATION/TECHNIQUE: X-RAY - XR Chest 1 View COMPARISON: 01/23/2021. FINDINGS: LINES/DEVICES: None. LUNGS: No consolidation, edema or effusion. No pneumothorax. MEDIASTINUM AND CARDIOVASCULAR STRUCTURES: Cardiac silhouette not enlarged. Central airways and mediastinal contour are unremarkable. BONES AND SOFT TISSUES: Unremarkable. RAD/Chest 1 View (Portable) IMPRESSION: No radiographic evidence of acute cardiopulmonary disease. Electronically Signed: Ana Cristina Heath MD at 17:44 EST Reading Location ID and State: [id number] / Tel , Service support ,
[2023-07-10 17:38] LABS: Anion Gap 4 (5-15); BUN 18 mg/dL (7-18); BUN/Creat Ratio 12.3 RATIO (10-20); Calcium,Total 9.8 mg/dL (8.5-10.1); Chloride 103 mmol/L (98-107); Creatinine, Serum 1.46 mg/dL (0.55-1.02); EST Glomerular Filtration Rate 40 mL/min (>60); Est Glom Filt Rate - Afr Amer 48 mL/min (>60); Estimated Creatinine Clearance 33.63 ml/min; Glucose 94 mg/dL (74-106); Sodium Level 138 mmol/L (136-145); Troponin-I HS (w/2H Reflex) 6 pg/mL (3.0-54.0)
[2023-07-10 19:09] LABS: Reflex Troponin-HS? (from REC) Y
--- NOTE | 2023-07-10 19:42 | EDS_ITS ---
HPI History of Present Illness Chief Complaint: Back Informant: patient Onset/Context/Timing Onset: Days (5) Context: Gradual Onset Timing: Continuous Quality: - (Stabbing) Location: Thoracic Worsened by: improves with Movement Relieved by: Remaining Still Associated Symptoms Associated Symptoms: Negative for Numbness, Tingling, Radiation to Right Leg, Radiation to Left Leg, Fever, Abdominal Pain, Dysuria, Unable to Ambulate, Unable to Transfer, Urinary Retention, Urinary Incontinence, Constipation or Fecal Incontinence Narrative Narrative: Patient presents with back pain that has been constant for the past 5 days. Patient states it is between her shoulder blades. Patient describes it as stabbing. Patient states it is worse with certain movements. Patient states it is better when she is able to remain still. Patient admits to some nausea and diaphoresis. Patient denies any vomiting. Patient admits to some lightheadedness and acid reflux symptoms. Patient denies any shortness of breath or cough. Patient denies any fevers or chills. Patient denies any palpitations. [facility] Medical History Anemia Anxiety and depression Arthritis Asthma Back problem Bradycardia Chest pain Chronic back pain Chronic constipation Collapse of left lung Depression Diverticulitis Essential (primary) hypertension Fatigue GERD (gastroesophageal reflux disease) History of left heart catheterization (LHC) (~01/25/21) History of pneumonia Hormone deficiency Hypersomnolence Hypothyroidism Low back pain Major depressive disorder Multiple sclerosis (10/30/16) Neuropathy Obesity (BMI 30-39.9) NATHALIE (obstructive sleep apnea) Osteopenia Pre-diabetes Pseudobulbar affect PTSD (post-traumatic stress disorder) Rectocele Right foot pain Rosacea Type 2 diabetes mellitus Urinary frequency Urinary urgency Home Medications dalfampridine 10 mg tablet,extended release,12 hr (Ampyra) 10 mg PO Q12H 09/19/17 [History Last Taken 12/20/20] folic acid 800 mcg tablet 800 mcg PO DAILY 09/19/17 [History Last Taken 12/19/20] modafinil 200 mg tablet 200 mg PO DAILY 09/19/17 [History Last Taken 12/20/20] cyanocobalamin (vitamin B-12) 1,000 mcg/mL injection solution 1,000 mcg IM PATEL 28 days #4 mL 09/21/18 [History Last Taken 2 Weeks Ago ~12/06/20] triamcinolone acetonide 55 mcg nasal spray aerosol (Nasacort) 1 spray intranasal DAILY 04/08/19 [History Last Taken Unknown] polyethylene glycol 3350 17 gram/dose oral powder (Miralax) 17 g PO DAILY PRN Constipation 09/13/19 [History Last Taken Unknown] cholecalciferol (vitamin D3) 125 mcg (5,000 unit) capsule 5,000 unit PO DAILY SUPPLEMENT #90 caps 03/14/21 [Rx Last Taken Unknown] Handicap Placard #1 ea 07/27/21 [Rx Last Taken Unknown] acyclovir 200 mg capsule 400 mg PO BID 07/27/21 [History Last Taken Unknown] baclofen 10 mg tablet 10 mg PO .QID 07/27/21 [History Last Taken Unknown] liraglutide 0.6 mg/0.1 mL (18 mg/3 mL) subcutaneous pen injector (Victoza 2-Jian) 1.8 mg subcut DAILY 04/17/22 [History Last Taken Unknown] albuterol sulfate 90 mcg/actuation aerosol inhaler (ProAir HFA) 1 - 2 puff inhalation Q6H PRN shortness of breath or wheezing #8.5 grams 04/30/22 [Rx Last Taken Unknown] celecoxib 200 mg capsule (Celebrex) 200 mg PO DAILY 09/13/22 [History Last Taken Unknown] cladribine(multiple sclerosis) 10 mg tablet (Mavenclad (8 tablet pack)) 10 mg PO DAILY 10/02/22 [History Last Taken Unknown] levothyroxine 88 mcg tablet 88 mcg PO DAILY@0600 #90 tabs 11/29/22 [Rx Last Taken Unknown] bupropion HCl 300 mg 24 hr tablet, extended release 300 mg PO QAM #90 tabs 12/16/22 [Rx Last Taken Unknown] ivermectin 1 % topical cream gm topical 02/06/23 [History Last Taken Unknown] triamterene 37.5 mg-hydrochlorothiazide 25 mg tablet See Rx Instructions .Route .COMPLEX #90 tabs 05/05/23 [Rx Last Taken Unknown] dextromethorphan 20 mg-quinidine 10 mg capsule (Nuedexta) 1 cap PO Q12H 05/15/23 [History Last Taken Unknown] losartan 50 mg tablet 50 mg PO DAILY #90 tabs 05/15/23 [Rx Last Taken Unknown] metronidazole 0.75 % topical gel 1 applic topical QHS 05/15/23 [History Last Taken Unknown] desvenlafaxine succinate 50 mg tablet,extended release 24 hr See Rx Instructions .Route .COMPLEX #90 tabs 06/23/23 [Rx Last Taken Unknown] esterified estrogens-methyltestosterone 0.625 mg-1.25 mg tablet 1 tab PO DAILY #30 tabs 06/24/23 [Rx Last Taken Unknown] hydrocodone-acetaminophen 5-325mg 5mg-325mg 1 tab PO Q6H PRN PRN Pain 3 days #10 TABLETS 07/10/23 [Rx Last Taken Unknown] Allergy/AdvReac Type Severity Reaction Status Date / Time doxycycline Allergy Vomiting Verified 07/10/23 17:00 latex Allergy Rash Verified 07/10/23 17:00 prochlorperazine Allergy Other Verified 07/10/23 17:00 [From Compazine] Family History Mother Alcoholism Anemia Asthma COPD (chronic obstructive pulmonary disease) Arthritis Kidney disease Mental disorder Respiratory abnormality CVA (cerebral vascular accident) Grandfather Angina pectoris Myocardial infarction Grandmother Arthritis Hypertension Osteoporosis CVA (cerebral vascular accident) Sister Crohn disease Bowel disease Uncle Parkinsons disease Surgical History History of bronchoscopy History of hysterectomy History of rectocele History of tonsillectomy Hx of cholecystectomy Hx of repair of rotator cuff Social History Smoking Status: Current every day smoker tobacco type: cigarettes Tobacco: How many years used: 30 Electronic Cigarette Use: with nicotine second hand exposure: Yes alcohol intake: never substance use type: marijuana and other details: Has a medical marijuana card. what type of physical activity do you participate in: none ROS ROS ED Constitutional Constitutional ED: Denies chills or fever(s) Eyes Eyes: Denies blurry vision or change in vision ENT ENT ED: Denies rhinorrhea or sore throat Cardiovascular Cardiovascular: Denies chest pain or palpitations Respiratory/Chest Respiratory/Chest: Denies cough or dyspnea Gastrointestinal Gastrointestinal: Denies nausea or vomiting Genitourinary Genitourinary ED: Denies dysuria or hematuria Musculoskeletal Musculoskeletal: Reports back pain and neck pain Integumentary Denies abscess or rash Neurologic Neurologic: Denies headache(s) or weakness Allergic/Immunologic Allergic/Immunologic ED: Denies mouth swelling or urticaria EXAM Physical Exam Const Vital Signs: 07/10/23 16:58 07/10/23 20:26 07/10/23 20:29 Temperature 97.8 F Temperature Source Temporal Temporal Pulse Rate 72 52 L Respiratory Rate 16 16 18 Blood Pressure 130/81 H 110/57 L Blood Pressure Mean 97 74 Pulse Ox 100 98 Oxygen Delivery Method Room Air Room Air Room Air Positive well nourished, well developed and obese General Appearance ED: well developed and NAD Nutritional Appearance: obese HEENT Reports moist mucous membranes Neck supple and no JVD Resp normal respiratory effort and clear to auscultation bilaterally Cardio regular rate and regular rhythm GI soft to palpation, non-tender and non-distended Back/Spine Back/Spine Narrative: There is tenderness over the mid thoracic paraspinal muscles. There is no midline tenderness. There is no bony crepitance or step-off. Range of motion was limited in all motions of the thoracic spine secondary to pain. Extremity normal to inspection Neuro oriented x3 and no sensory deficits noted Sensorium / Orientation: alert Motor Exam: strength 5/5 throughout Psych mental status grossly normal MDM MDM MDM Narrative Medical decision making narrative: Differential diagnosis includes cardiac dysrhythmia, cardiac ischemia, pneumonia, pneumothorax, aortic dissection, electrolyte abnormality, and musculoskeletal pain. EKG will be obtained to assess for cardiac dysrhythmia and cardiac ischemia. Chest x-ray will be obtained to assess for pneumonia, pneumothorax, and widened mediastinum. CBC will be obtained to assess for leukocytosis and anemia. Basic metabolic profile will be obtained to assess for electrolyte abnormality and renal function. High-sensitivity troponin will be obtained to assess for cardiac ischemia. 2-hour repeat high-sensitivity troponin will be obtained to assess for ongoing cardiac ischemia. Lab Data Attestation: I reviewed the patient's lab results. Lab results narrative: CBC was reviewed and was within normal limits. Basic metabolic profile was reviewed. BUN was normal. Creatinine was 1.46. This was essentially unchanged from previous results. The remainder was within normal limits. High- sensitivity troponin was reviewed and was normal at 6. 2-hour repeat high- sensitivity troponin was reviewed and was normal at 8. Labs: Laboratory Results - last 24 hr 07/10/23 07/10/23 17:05 19:20 WBC 7.4 RBC 4.20 Hgb 14.0 Hct 42.9 MCV 102.1 H MCH 33.3 H MCHC 32.6 RDW Std Deviation 47.6 H RDW Coeff of Rigo 12.8 Plt Count 264 MPV 8.6 Immature Gran % (Auto) 0.300 Neut % (Auto) 68.6 Lymph % (Auto) 22.9 Howell % (Auto) 6.6 Eos % (Auto) 1.1 Baso % (Auto) 0.5 Absolute Neuts (auto) 5.1 Absolute Lymphs (auto) 1.69 Nucleated RBC % 0 Sodium 138 Potassium 4.0 Chloride 103 Carbon Dioxide 31.0 Anion Gap 4 L BUN 18 Creatinine 1.46 H Estim Creat Clear Calc 33.63 Est GFR (MDRD) Af Amer 48 L Est GFR (MDRD) Non-Af 40 L BUN/Creatinine Ratio 12.3 Glucose 94 Calcium 9.8 Troponin I High Sens 6 8 Radiography Chest X-Ray - ED: 1 View, Read by ED Physician, Read by Radiologist and No Acute Disease Diagnostic Testing: Clinical Impression(s) from Imaging Studies Chest X-Ray 07/10/23 17:15 IMPRESSION: No radiographic evidence of acute cardiopulmonary disease. Electronically Signed: Ana Cristina Heath MD at 17:44 EST , Portable 1 view chest x-ray was obtained. On my independent interpretation, lung rubio are clear. There is normal cardiac silhouette. Bony thorax is normal. There is no acute process noted. Radiologist also interpreted the x- ray and agrees. EKG Initial EKG: Attestation: I personally reviewed and interpreted this EKG as follows: Interpretation: Sinus Rhythm (65) and No Acute Injury Pattern Comments: EKG was obtained. On my independent interpretation, it showed a normal sinus rhythm with a rate of 5. OH interval, QRS interval, and QTc intervals were all normal. Hamilton was normal. There are no acute ST or T wave changes. Prior EKG tracings: available for review Prior: Unchanged (01/25/2021) Treatment and Re-Evaluation Narrative: Patient was given a dose of morphine and Zofran here. Patient was advised of her findings. Patient was advised that this most likely musculoskeletal pain. Patient has a HEART score of 1. Patient was advised that this is low risk for acute cardiac event. Patient was instructed to follow-up with her primary care physician in 5 to 7 days. Patient was instructed to return if worse in any way. Patient understood and was agreeable with the plan. All questions were answered. Discharge Plan Triage Chief Complaint: Back ED Provider: Allan Claire Dx/Rx/DC Orders Clinical Impression: Acute thoracic back pain, Type 2 diabetes mellitus, Multiple sclerosis Instructions: ED Back Pain (Acute or Chronic) Prescriptions: New hydrocodone-acetaminophen [hydrocodone-acetaminophen] 5-325 mg tablet 1 tab PO Q6H PRN PRN (Reason: Pain) 3 Days Qty: 10 0RF No Action folic acid 800 mcg tablet 800 mcg PO DAILY dalfampridine [Ampyra] 10 mg tablet extended release 12 hr 10 mg PO Q12H modafinil 200 mg tablet 200 mg PO DAILY baclofen 10 mg tablet 10 mg PO .QID cyanocobalamin (vitamin B-12) 1,000 mcg/mL solution 1,000 mcg IM PATEL 28 Days Qty: 4 triamcinolone acetonide [Nasacort] 55 mcg aerosol,spray 1 spray INTRANASAL DAILY polyethylene glycol 3350 [Miralax] 17 gram/dose powder 17 g PO DAILY PRN (Reason: Constipation) acyclovir 200 mg capsule 400 mg PO BID cholecalciferol (vitamin D3) 125 mcg (5,000 unit) capsule 5,000 unit PO DAILY Qty: 90 3RF (DME) Handicap Placard See Rx Instructions .ROUTE .MEDSUPPLY Qty: 1 0RF Rx Instructions: As directed, length of time 3 years Victoza 2-Jian 0.6 mg/0.1 mL (18 mg/3 mL) pen injector 1.8 mg subcut DAILY Mavenclad (8 tablet pack) 10 mg tablet 10 mg PO DAILY Rx Instructions: administer daily for 5 days for each of 2 cycles per yearly treatment course celecoxib [Celebrex] 200 mg capsule 200 mg PO DAILY levothyroxine 88 mcg tablet 88 mcg PO DAILY@0600 Qty: 90 2RF metronidazole 0.75 % gel 1 applic topical QHS Nuedexta 20-10 mg capsule 1 cap PO Q12H losartan 50 mg tablet 50 mg PO DAILY Qty: 90 3RF ivermectin 1 % cream topical Patient Comments: APPLY A THIN LAYER TO THE ENTIRE FACE EVERY MORNING desvenlafaxine succinate 50 mg tablet extended release 24 hr See Rx Instructions .ROUTE .COMPLEX Qty: 90 0RF Dose Instruction: TAKE 1 TABLET BY MOUTH EVERY DAY Rx Instructions: TAKE 1 TABLET BY MOUTH EVERY DAY albuterol sulfate [ProAir HFA] 90 mcg/actuation HFA aerosol inhaler 1 - 2 puff inhalation Q6H PRN (Reason: shortness of breath or wheezing) Qty: 8.5 3RF bupropion HCl 300 mg tablet extended release 24 hr 300 mg PO QAM Qty: 90 3RF triamterene-hydrochlorothiazid 37.5-25 mg tablet See Rx Instructions .ROUTE .COMPLEX Qty: 90 1RF Dose Instruction: TAKE 1 TABLET BY MOUTH EVERY MORNING Rx Instructions: TAKE 1 TABLET BY MOUTH EVERY MORNING estrogens-methyltestosterone 0.625-1.25 mg tablet 1 tab PO DAILY Qty: 30 0RF Primary Care Provider: Keith Wu Referrals: Keith Wu MD [Primary Care Provider] - 5-7 Days Disposition Disposition: Home, Self Care
[2023-07-10 19:50] LABS: Troponin-I HS 8 pg/mL (3.0-54.0)
[2023-07-10 20:26] VITALS: BP 110/57; PULSE 52; RESP 16; O2SAT 98
[2023-07-10 20:29] VITALS: RESP 18
[2023-07-10] MEDS: Acetaminophen 500 MG Tablet 1000 MG PO (21:14)
[2023-07-10 21:32] VITALS: BP 135/74; PULSE 81; RESP 16; O2SAT 99
== END 2023-07-10 21:32 | disposition home or self-care (01) ==
PROVIDERS: Emergency Provider Emergency Medicine; PCP Internal Medicine; Visit Provider Emergency Medicine
DX: G35 Multiple sclerosis (principal); E11.40 Type 2 diabetes mellitus with diabetic neuropathy, unspecified; F17.210 Nicotine dependence, cigarettes, uncomplicated; I10 Essential (primary) hypertension; M54.89 Other dorsalgia; Z79.899 Other long term (current) drug therapy; Z79.85 Long-term (current) use of injectable non-insulin antidiabetic drugs; E03.9 Hypothyroidism, unspecified; F32.A Depression, unspecified; Z90.710 Acquired absence of both cervix and uterus; Z90.49 Acquired absence of other specified parts of digestive tract; R11.0 Nausea
CPT/HCPCS: 71045; 80048; 84484; 85025; 93005; 99284; J7030; A4216

== ENCOUNTER → 2023-08-07 | Outpatient (CLI) | payer OTHER, SELFPAY ==
--- NOTE | 2023-08-07 06:47 | MRI_ITS ---
EXAM: MR HEAD WITHOUT AND WITH INTRAVENOUS CONTRAST CLINICAL INDICATION: MS with left hand numbness, left arm and shoulder pain. Follow-up. TECHNIQUE: Multiplanar and multisequence MR images of the brain were obtained without and with intravenous contrast. CONTRAST: 19 mL of IV Clariscan. COMPARISON: MRI brain with and without contrast 12/10/2022. FINDINGS: BRAIN AND EXTRA-AXIAL SPACES: Few small T2 FLAIR hyperintensity foci in the white matter of both cerebral hemispheres, some are perpendicular to the hebert of the lateral ventricles suggestive of perivenular demyelination in MS plaques. These are unchanged and they remaining nonenhancing. No abnormal enhancing lesions intra-axially and extra-axially. The brainstem and posterior fossae remain normal. No intra- or extra-axial hemorrhage. No evidence of acute infarct. No intracranial mass or mass effect. There is preservation of the naqvi/white matter interface. No hydrocephalus. Basal cisterns are patent. SELLA: Unremarkable. Normal sella turcica, pituitary gland, infundibular stalk, optic chiasm and hypothalamus. AUDITORY SYSTEM: Unremarkable. The internal auditory canals are patent. BONES/JOINTS: Unremarkable. No discrete lytic or blastic abnormalities. SINUSES: Unremarkable as visualized. Clear. MASTOID AIR CELLS: Unremarkable as visualized. Clear. ORBITS: Unremarkable as visualized. Both globes, extraocular muscles, optic nerves and retrobulbar fat appear unremarkable. VASCULATURE: Unremarkable as visualized. Normal flow voids in the major intracranial circulation. MRI/Brain W/WO Contrast IMPRESSION: 1. No MRI evidence of active enhancing MS plaques or acute intracranial abnormality. 2. No significant interval change when compared to 12/10/2022. Electronically Signed: Zachariah Kimble MD at 10:08 EST ,
--- NOTE | 2023-08-07 06:47 | MRI_ITS ---
STUDY: MRI CERVICAL SPINE WITH AND WITHOUT CONTRAST REASON FOR EXAM: Female, 53 years old. MS with left hand numbness and left shoulder/arm pain. TECHNIQUE: Standardized fat and water weighted pulse sequences were obtained in the sagittal and axial following administration of 19 mL of IV Clariscan. COMPARISON: MRI cervical spine with and without contrast 12/10/2022. FINDINGS: Normal foramen magnum and brainstem-cervical cord junction. Normal craniovertebral junction. Normal anterior atlantoaxial articulation. Normal odontoid process. Straightening of the C-spine curvature. Normal vertebral bodies and posterior osseous elements. C2-3: Normal endplates. Normal disc height, signal and morphology. Normal central canal and intervertebral neural foramina. C3-4: Normal endplates. Normal disc height, signal and morphology. Normal central canal and intervertebral neural foramina. C4-5: Normal endplates. Normal disc height, signal and morphology. Normal central canal and intervertebral neural foramina. C5-6: Normal endplates. Mild disc space height narrowing. Prominent right ventral extradural defect due to disc protrusion is unchanged. Normal central canal. Mild to moderate stenosis of the right intervertebral neural foramen due to the disc protrusion. Normal left intervertebral neural foramen. C6-7: Normal endplates. Normal disc height, signal and morphology. Normal central canal and intervertebral neural foramina. C7-T1: Normal endplates. Normal disc height, signal and morphology. Normal central canal and intervertebral neural foramina. T1-T2, T2-T3 and T3-T4: (Sagittal only). Normal endplates. Normal disc height, signal and morphology. Normal central canal and intervertebral neural foramina. Abnormal intramedullary high signal intensity in the right side of the cervical spinal cord along the C5 vertebral body level and abnormal intramedullary high signal intensity in the right side of the thoracic spinal cord at the T2-T3 disc space level. These were present previously and did not enhance with intravenous contrast. There are no abnormally enhancing lesions intradurally and extradurally. Normal visualized soft tissue structures. MRI/Spine Cervical W/WO Contrast IMPRESSION: 1. Nonenhancing MS plaques in the right side of the cervical spinal cord along the C5 vertebral body and along the right side of the thoracic spinal cord at the T2-T3 disc space level. 2. Right C5-C6 disc protrusion causing right intervertebral neural foraminal stenosis and probable displacement of the right C6 nerve root sleeve. Advise clinical correlation if there are symptoms of right C6 nerve radiculopathy. 3. No interval change when compared to 12/10/2022. Electronically Signed: Zachariah Kimble MD at 10:39 EST ,
== END | disposition home or self-care (01) ==
PROVIDERS: PCP Internal Medicine
DX: G35 Multiple sclerosis (principal)
CPT/HCPCS: 70553; 72156; A9575

== ENCOUNTER 2023-09-03 17:00 | Outpatient (RCR) | payer OTHER, SELFPAY ==
--- NOTE | 2023-06-24 11:21 | HP.PTEVAL_ITS ---
Patient's Visit Information Visit Information Visit Information: DELMER AVILA is a 52 year old F referred to Physical Therapy by CIRO LAEX with a diagnosis of RTC repair, distal clavicle excision.. Date of Evaluation: 06/23/23 Physical Therapist: Jose Dejesus DPT Visit Plan Frequency: 2-3x /Week Duration: 6 Weeks Plan: 1) PROM and AAROM of R shoulder, add in joint mobilization progressing end range as tolerated. 2) isometric strengthening of R shoulder progressing to phase III as tolerated. Pt. wanted to start with 1 per week. I stress to her about being consistent with HEP at home. Progress HEP as able. Subjective Subjective: Pt. is here today for her initial evaluation for R RTC repair. PT. had repair in January. Pt. was doing therapy at alternate facility until last month. She has not done much over the past few weeks to a month. PMH: MS, difficulty with walking. Pt. was working on ROM and phase II at previous facility. She got a new job and this facility is closer to home. Pt. reports no large pain, but is still having difficulty with AROM and using her arm. 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 Pt. is sleeping okay most of the time. Pt. is hopeful to increase her ROM and get back to all work and recreational activities without limitations. She did also mention that her R AFO is no longer fitting well and would like to get another. I referred her to her PCP. Pain R shoulder: Pain Intensity (Out of 10): 2 Pain Intensity Range: 1 and 6 Objective Objective: POSTURE: Pt. has decent posture in stance, normal B shoulder heights. Pt. has rounded fwrd shoulders and forward head. [place]: pt. has tenderness at R UT and R biceps tendon in groove. NEURO: Normal throughout BUEs. ROM: R shoulder: PROM: flexion 135deg, abd 110deg, ER at 90eg 40eg, IR at 90deg 30deg. AROM: R shoulder: flexion 107deg, abd 93deg, functional ER external auditory meatus, functional IR R PSIS. MMT: RUE: shoulder: flexion 3+/5, abd 3+/5, ER 3+/5, IR 4/5, ext 4+/5. LUE: 5/5 throughout. Balance/Special Test Scores Quick DASH Score: 47.7250 Goals Goal 1:: LTG: Pt. to be I with phase II and phase III of RTC rehab. Goal Time Frame: 6-8 Weeks Goal 2:: STG: Pt. to have increased PROM to full without increase in R shoulder pain. Goal Time Frame: 2-4 Weeks Goal 3:: LTG: pt. to have full AROM of R shoulder without increase in R shoulder pain. Goal Time Frame: 4-6 Weeks Goal 4:: STG: Pt. to sleep throughout the night without increase in symptoms. Goal Time Frame: 2-4 Weeks Goal 5:: LTG: pt. to have increased R shoulder strength to at least 5-/5 throughout allowing for increased tolerance to all work and recreational activities Goal Time Frame: 6-8 Weeks Rehabilitation Potential Physical Therapy Diagnosis: Pt. has signs and symptoms consistent with RTC repair. Pt. has marked hypomobility and weakness resulting in difficulty with function use of RUE. Pt. would benefit from PT to address those issues above progressing back to all work and recreational activities. Rehabilitation Potential: Good Anticipated Interventions Patient/Client Instruction: Educate patient on: Condition, Plan of Care, Risk Factors and Benefits of Fitness Program For the Purpose of:: To foster healthy habits, To improve decision making, To facilitate caregiver knowledge, To improve self management, To prevent re- injury, To improve ability to perform tasks related to life management and To improve tolerance to ADL's Therapeutic Exercise to Include: Strength training, Power training, Postural training, Flexibilty training, Passive ROM, Active ROM and Scapular Strength/Stabilization For the Purpose of:: To decrease pain, To increase ROM, To improve nutrient delivery to tissue, To increase oxygenation perfusion, To improve muscle performance and motor function, To improve ability to perform ADL's, To improve health of tissue, To decrease soft tissue restriction and To increase flexibility/ROM Manual Therapy Techniques to Include: Mobilization, Passive ROM and Soft tissue mobilization For the Purpose of:: To decrease pain, To increase ROM, To improve nutrient delivery to tissue, To increase oxygenation perfusion, To improve muscle performance and motor function and To improve ability to perform ADL's Text: Thank you for the opportunity to evaluate your patient. For Medicare and Medicare HMO plans, please review the plan of care and approve it. It will need to be FAXED BACK to us at [phone] for Medicare purposes. For Medicare only, by signing this I certify the plan of care. Please let me know if there are questions or concerns regarding this plan of care. Physician Signature: Date:
--- NOTE | 2023-08-21 07:52 | HP.PTREVAL_ITS ---
Re-Evaluation Intro: CIRO ALEX, It has been my pleasure to treat DELMER AVILA over the last 3 visits for RTC repair, distal clavicle excision.. Please see the progress note below for an update on the physical therapy plan of care! Subjective Subjective: Pt. reports overall that her arm is doing well. Pt. reports being cleared with her arm. She also arrived with a new script for her MS. She reports that her MS has been flared up and her leg has felt really weak. Objective Objective/Function: Pt. has tight R ankle limited DF, 4 deg. Pt. has marked ankle weakness. DF 4/5, PF 4+/5, INV 4+/5, EVR 3/5. LLE ankle 5/5 throughout. R: knee: ext 4/5, flexion 4-/5; hip: flexion 4/5, abd 4/5. LLE: 5/5 throughout. GAIT: Pt. ambulates with increased R hip flexion, and limited knee flexion during swing phase. Minimal forefoot rocker moment. STAIRS: Pt. has marked functional weakness with ascending and descending steps L LE worse than R. TU.1sec without AD. 6 MWT: 798sec without AD Plan Plan Plan: Pt. would like to focus on more on her LEs at this point in time rather than her R. I talked to her that she needs to continue with her R shoulder ROM and strengthening. Pt. consents. we will focus on end range R shoulder ROM and phase III RTC. I will also work on RLE strengthening and gait/stability. Balance/Gait/Functional tests Balance/Special Test Scores Quick DASH Score: 47.7250 Goals Goals Goal 1:: LTG: Pt. to be I with phase II and phase III of RTC rehab. Goal Time Frame: 6-8 Weeks Goal 2:: STG: Pt. to have increased PROM to full without increase in R shoulder pain. Goal Time Frame: 2-4 Weeks Goal 3:: LTG: pt. to have full AROM of R shoulder without increase in R shoulder pain. Goal Time Frame: 4-6 Weeks Goal 4:: STG: Pt. to sleep throughout the night without increase in symptoms. Goal Time Frame: 2-4 Weeks Goal 5:: LTG: pt. to have increased R shoulder strength to at least 5-/5 throughout allowing for increased tolerance to all work and recreational activities Goal Time Frame: 6-8 Weeks Goal 6:: LTG: Pt. to have increased RLE strength symmetrical to L side. Goal Time Frame: 4-6 Weeks Goal Progress: Progressing Anticipated Interventions Anticipated Interventions Patient/Client Instruction: Educate patient on: Condition, Plan of Care, Risk Factors and Benefits of Fitness Program For the Purpose of:: To foster healthy habits, To improve decision making, To facilitate caregiver knowledge, To improve self management, To prevent re- injury, To improve ability to perform tasks related to life management and To improve tolerance to ADL's Therapeutic Exercise to Include: Strength training, Power training, Postural training, Flexibilty training, Passive ROM, Active ROM and Scapular Strength/Stabilization For the Purpose of:: To decrease pain, To increase ROM, To improve nutrient delivery to tissue, To increase oxygenation perfusion, To improve muscle performance and motor function, To improve ability to perform ADL's, To improve health of tissue, To decrease soft tissue restriction and To increase flexibility/ROM Manual Therapy Techniques to Include: Mobilization, Passive ROM and Soft tissue mobilization For the Purpose of:: To decrease pain, To increase ROM, To improve nutrient delivery to tissue, To increase oxygenation perfusion, To improve muscle performance and motor function and To improve ability to perform ADL's Re-Evaluation Ending Re-evaluation ending: Please do not hesitate to contact me at [phone] by phone or if you have questions or concerns regarding this new plan of care! Sincerely, Jose Dejesus DPT
--- NOTE | 2023-09-04 10:50 | HP.PTDCSUM ---
Discharge Summary D/C summary: It has been my pleasure to treat DELMER AVILA referred by CIRO ALEX, with the diagnosis of RTC repair, distal clavicle excision. for a total of 8 visit(s). Discharge Date: 09/03/23 Please see the following information for a summary of their discharge status. Subjective Subjective: Pt. reports doing well Pain R shoulder: Pain Intensity (Out of 10): 1 L shoulder blade: Pain Intensity (Out of 10): 2 Objective Objective/Function: Pt. is doing well. She is independent with a gym program at this point in time. I talked to her about how well and I she is with her exercises and progressing to self driven program in gym. Pt. consent. She also has a high deductible. After talking we decided to start her I program for both UE and LE strengthening. Pt. given handouts and instruction on how to progress. She still has some marked weakness in her R shoulder, but is much better 4/5 throughout deltoid, RTC ER 4/5 IR 5/5, ext 5/5. elbow 5/5 throughout. R leg: DF 4/5 but does fatigue rapidly. PF 5/5, INV 4+/5, EVR 4-/5. GAIT: Pt. ambulates without AD, but does have R hip in IR positioning. She was not wearing her AFO today, but had proper foot clearance with some increased hip flexion. Goals Goal 1:: LTG: Pt. to be I with phase II and phase III of RTC rehab. Goal Progress: Goal Met Goal 2:: STG: Pt. to have increased PROM to full without increase in R shoulder pain. Goal Progress: Progressing Goal 3:: LTG: pt. to have full AROM of R shoulder without increase in R shoulder pain. Goal Progress: Progressing Goal 4:: STG: Pt. to sleep throughout the night without increase in symptoms. Goal Progress: Goal Met Goal 5:: LTG: pt. to have increased R shoulder strength to at least 5-/5 throughout allowing for increased tolerance to all work and recreational activities Goal Progress: Goal Met Goal 6:: LTG: Pt. to have increased RLE strength symmetrical to L side. Goal Progress: Progressing Plan Plan: Pt. to start I gym program at this point in time. I am DCing her to I program today. D/C Information Discharge Comments: Pt. is overall doing well. Pt. will be DC from PT to work on gym setting for both UE and LE strengthening. Pt. consents. d/c sentence: If there are questions or concerns regarding this patient's physical therapy, please feel free to call me at [phone]. Thank you for the referral of this patient. Sincerely, Jose Dejesus, DPT Balance/Gait/Functional tests Balance/Special Test Scores Quick DASH Score: 29.5477
== END 2023-09-03 19:00 | disposition home or self-care (01) ==
LOC: PT 17:00
PROVIDERS: PCP Internal Medicine
DX: Z98.890 Other specified postprocedural states (principal)
CPT/HCPCS: 97110; 97140; 97161; 97164

== ENCOUNTER → 2023-10-06 | Outpatient (CLI) | payer OTHER, SELFPAY ==
--- OUTSIDE RECORDS SUMMARY | 2023-10-06 11:09 | XMS RPT_ITS | CCD ---
Author Name Unknown Address [email or web address] [place] [address] Organization [facility] Care Team Providers Care Legal Investigator Name Role Phone Oleghe, Efewongbe B Primary Care Provider Lolis WU EFEWONGBE Primary Care Unavailable ISAI GARRISON, DR TANNER Attending Unavailable ISAI GARRISON, DR TANNER Admitting Unavailable ISAI GARRISON, DR TANNER Consulting Unavailable ISAI GARRISON, DR TANNER Consulting Khris VALENCIA MD, OLEG Consulting Unavailable ERIK GARRISON, OLEG Consulting Unavailable OLEGHE, EFEWONGBE Consulting Unavailable OLEGHE, EFEWONGBE Consulting Unavailable OLEGHE, EFEWONGBE Primary Care Unavailable ISAI GARRISON, DR TANNER Admitting Unavailable ISAI GARRISON, DR TANNER Consulting Unavailable ISAI GARRISON, DR TANNER Attending Unavailable ISAI GARRISON, DR TANNER Consulting Unavailable MITCHELL GARRISON, JORDIN Hammond Consulting Unavailable MITCHELL GARRISON, JORDIN Hammond Consulting Unavailable OLEGHE, EFEWONGBE Consulting Unavailable OLEGHE, EFEWONGBE Consulting Unavailable OLEGHE, EFEWONGBE Primary Care Unavailable ISAI GARRISON, DR TANNER Admitting Unavailable OLEGHE, EFEWONGBE Consulting Unavailable ISAI GARRISON, DR TANNER Attending Unavailable OLEGHE, EFEWONGBE Consulting Unavailable Oleghe, Efewongbe B Primary Care Provider LUISITO DONOVAN Attending Unavailable INGA JAMES Referring Unavailable OLEGHE, EFEWONGBE Primary Care Unavailable LUISITO DONOVAN Attending Unavailable OLEGHE, EFEWONGBE Primary Care Unavailable LUISITO DONOVAN Referring Unavailable LUISITO DONOVAN Attending Unavailable OLEGHE, EFEWONGBE Primary Care Unavailable FELIX KNIGHT Referring Unavailable FELIX KNIGHT Attending Unavailable OLEGHE, EFEWONGBE Primary Care Unavailable Allergies Allergy Classification Reported Allergen(s) Allergy Type Date of Onset Reaction(s) Facility (8 sources) Doxycycline Drug Allergy 06-06-20 18 Nausea And Vomiting, Anxiety, Headache [place] (1 source) Latex Propensity to adverse reactions to drug 12-10-19 16 Itching [place] (8 sources) levoFLOXacin Drug Allergy 09-04-19 12 Nausea [place] V[place]iting [place] (8 sources) Prochlorperazine Drug Allergy 08-30-19 15 [place] (1 source) Sulfonamides (Antibiotic) Propensity to adverse reactions to drug 09-04-19 12 Nausea [place] Vomiting [place] (1 source) Other Propensity to adverse reactions 04-29-20 19 [place] (1 source) Prochlorperazine Edisylate Propensity to adverse reactions to drug 08-30-19 15 [place] (7 sources) Sulfonamides (Antibiotic) Drug Intolerance 09-04-19 12 Nausea And Vomiting [facility] (1 source) Amino Acids Drug Allergy [facility] (1 source) Doxycycline Drug Allergy [facility] (1 source) Latex Drug allergy (disorder) [facility] (1 source) Penicillins Drug allergy (disorder) [facility] (1 source) Prochlorperazine Drug Allergy [facility] (1 source) Sulfonamides (Antibiotic) Drug allergy (disorder) [facility] Medications Current Medications Medication Drug Class(es) Dates Sig (Normalized) Sig (Original) acyclovir 400 mg oral tablet (7 sources) Herpesvirus Nucleoside Analog DNA Polymerase Inhibitor, Herpes Simplex Virus Nucleoside Analog DNA Polymerase Inhibitor, Herpes Zoster Virus Nucleoside Analog DNA Polymerase Inhibitor Start: 01-15-2023 take 1 tablet by mouth twice daily acyclovir (Zovirax) 400 MG tablet Take 400 mg by mouth 2 times daily. 0 01/15/2023 Active albuterol 0.83 mg/ml inhalant solution (1 source) beta2-Adrenergic Agonist albuterol (PROVENTIL) (2.5 MG/3ML) 0.083% nebulizer solution Inhale 2.5 mg into the lungs 0 Active amLODIPine 5 mg oral tablet (1 source) Dihydropyridine Calcium Channel Javon Start: 04-03-2019 take 1 tablet by mouth once daily amLODIPine (NORVASC) 5 MG tablet Take 5 mg by mouth daily 0 04/03/2019 Active baclofen 10 mg oral tablet (8 sources) gamma-Aminobutyric Acid-ergic Agonist Start: 01-14-2023 take 2 tablets by mouth four times daily baclofen (Lioresal) 10 MG tablet TAKE 2 TABLETS BY MOUTH 4 TIMES A DAY 30 DAYS 0 01/14/2023 Active Completed/Discontinued Medications Medication Drug Class(es) Dates Sig (Normalized) Sig (Original) onabotulinumtoxina 200 unt injection (10 sources) Acetylcholine Release Inhibitor Start: 3 End: 3 onabotulinumtoxinA (Botox) injection 300 Units Problems Active Problems Problem Classification Problem Date Documented Date Episodic/Chronic Genitourinary symptoms and ill-defined conditions (8 sources) Mixed urinary incontinence; Translations: [Incontinence] Onset: 04-07-2019 04-07-2019 Chronic Multiple sclerosis (5 sources) Multiple sclerosis; Translations: [Multiple sclerosis] Onset: 08-21-2023 01-28-2023 Chronic Osteoarthritis (1 source) Primary osteoarthritis, right shoulder; Translations: [PRIMARY OSTEOARTHRITIS RT SHOULDER] Onset: 03-02-2023 Chronic Other connective tissue disease (3 sources) Spasticity; Translations: [Cramp and spasm] 02-18-2023 Episodic Paralysis (6 sources) Spastic diplegia; 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] Onset: 08-21-2023 01-28-2023 Chronic Prolapse of female genital organs (15 sources) Herniation of rectum into vagina; Translations: [Midline cystocele] Onset: 04-07-2019 04-07-2019 Chronic Unclassified (2 sources) New Patient; Translations: [New Patient] Onset: 01-27-2023 Past or Other Problems Problem Classification Problem Date Documented Da te Episodic/Chronic Other aftercare (1 source) Encounter for other specified surgical aftercare; Translations: [ENC OTHER SPEC SURGICAL AFTERCARE] Onset: 03-24-2023 Episodic Other connective tissue disease (3 sources) Complete rotator cuff tear or rupture of right shoulder, not specified as traumatic; Translations: [CMPL ROT CUFF TEAR/RUPT RT SHOULDR] Onset: 02-24-2023 Episodic Other connective tissue disease (1 source) Adhesive capsulitis of right shoulder; Translations: [ADHESIVE CAPSULITIS RIGHT SHOULDER] Onset: 03-02-2023 Episodic Other connective tissue disease (2 sources) Impingement syndrome of right shoulder; Translations: [IMPINGEMENT SYNDROME RIGHT SHOULDER] Onset: 01-09-2023 Episodic Other connective tissue disease (1 source) Enthesopathy, unspecified; Translations: [ENTHESOPATHY UNSPECIFIED] Onset: 01-14-2023 Episodic Other connective tissue disease (2 sources) Cramp and spasm; Translations: [Cramp and spasm] Onset: 02-18-2023 Episodic Other non-traumatic joint disorders (3 sources) Pain in right shoulder; Translations: [PAIN IN RIGHT SHOULDER] Onset: 03-19-2023 Episodic Other non-traumatic joint disorders (1 source) Stiffness of right shoulder, not elsewhere classified; Translations: [STIFFNESS RIGHT SHOULDER NEC] Onset: 03-24-2023 Episodic Screening and history of mental health and substance abuse codes (1 source) Personal history of nicotine dependence; Translations: [PERSONAL HISTORY OF NICOTINE DEPEND] Onset: 03-02-2023 Episodic Sprains and strains (2 sources) Superior glenoid labrum lesion of right shoulder, initial encounter; Translations: [Strain of other muscles, fascia and tendons at shoulder and upper arm level, right arm, initial encounter] Onset: 01-14-2023 Episodic Substance-related disorders (1 source) Cannabis use, unspecified, uncomplicated; Translations: [CANNABIS USE UNS UNCOMPLICATED] Onset: 03-02-2023 Episodic Results Test Name Value Interpretation Reference Range Facil ity Vital Signs Date Time Vital Sign Value Performing Clinician Alberta pablo 08-21-2023 07:38-0500 Body height 160 cm Felix Manriquecherelle CULVER [employer] MATERIALS TECHNICIAN Work Phone: [facility] [employer] [place] 08-21-2023 07:38-0500 Body mass index (BMI) [Ratio] 40.03 kg/m2 Felixniranjan Manriquesey REINFORCING METAL WORKER [employer] MATERIALS TECHNICIAN Work Phone: [employer] [place] 08-21-2023 07:38-0500 Body temperature 98.1 [degF] Felix Manriquecherelle CULVER [employer] MATERIALS TECHNICIAN Work Phone: [facility] [employer] [place] 08-21-2023 07:38-0500 Body weight 102.51 kg Felixniranjan Manriquecherelle [employer]VER [employer] MATERIALS TECHNICIAN [facility] Phone: [facility] 08-21-2023 07:38-0500 Diastolic blood pressure 62 mm[Hg] Felix Knight REINFORCING METAL WORKER - MATERIALS TECHNICIAN Work Phone: [facility] [employer] [place] 08-21-2023 07:38-0500 Heart rate 81 /min Felix Knight REINFORCING METAL WORKER - MATERIALS TECHNICIAN Work Phone: [facility] [employer] [place] 08-21-2023 07:38-0500 Systolic blood pressure 115 mm[Hg] Felix Knight REINFORCING METAL WORKER - MATERIALS TECHNICIAN Work Phone: [facility] [employer] [place] 05-21-2023 08:27-0400 Body temperature 97.59 [degF] Luisito Donovan MD Work Phone: [facility] [employer] [place] 05-21-2023 08:27-0400 Diastolic blood pressure 73 mm[Hg] Luisito Donovan MD Work Phone: [facility] [employer] [place] 05-21-2023 08:27-0400 Heart rate 50 /min Luisito Donovan MD Work Phone: [facility] [employer] [place] 05-21-2023 08:27-0400 Systolic blood pressure 146 mm[Hg] Luisito Donovan MD Work Phone: [facility] [employer] [place] 02-18-2023 09:42-0400 Body temperature 97.7 [degF] Luisito Donovan MD Work Phone: [facility] [employer] [place] 02-18-2023 09:42-0400 Diastolic blood pressure 79 mm[Hg] Luisito Donovan MD Work Phone: [facility] [employer] [place] 02-18-2023 09:42-0400 Heart rate 50 /min Luisito Donovan MD Work Phone: [facility] [employer] [place] 02-18-2023 09:42-0400 Systolic blood pressure 140 mm[Hg] Luisito Donovan MD Work Phone: [facility] [employer] [place] 01-27-2023 13:34-0400 Body mass index (BMI) [Ratio] 40.03 kg/m2 Luisito Donovan MD Work Phone: [facility] [employer] [place] 01-27-2023 13:34-0400 Body temperature 98.6 [degF] Luisito Donovan MD Work Phone: [facility] 01-27-2023 13:34-0400 Body weight 102.51 kg Luisito Donovan MD Work Phone: [facility] 01-27-2023 13:34-0400 Diastolic blood pressure 75 mm[Hg] Luisito Donovan MD Work Phone: [facility] 01-27-2023 13:34-0400 Heart rate 54 /min Luisito Donovan MD Work Phone: [facility] 01-27-2023 13:34-0400 Systolic blood pressure 131 mm[Hg] Luisito Donovan MD Work Phone: [facility] 04-29-2019 15:21-0400 BMI (Body Mass Index) 38.79 kg/m2 [facility], [place] 04-29-2019 15:21-0400 Body Temperature 97.81 [degF] [facility], [place] 04-29-2019 15:21-0400 Body weight 99.34 kg [facility], [place] 04-29-2019 15:21-0400 BP Diastolic 69 mm[Hg] [facility], [place] 04-29-2019 15:21-0400 BP Systolic 122 mm[Hg] [place] 04-29-2019 15:21-0400 Height 160 cm [place] 04-29-2019 15:21-0400 Pulse (Heart Rate) 50 /min [facility], [place] 04-29-2019 15:21-0400 Pulse Oximetry 97 % [place] Encounters Encounter Date Encounter Type Care Provider Facility Start: 08-21-2023 End: 08-21-2023 ambulatory FELIXNIRANJAN KNIGHT [facility] Start: 08-21-2023 End: 08-21-2023 Patient encounter procedure Felix Knight REINFORCING METAL WORKER - MATERIALS TECHNICIAN Work Phone: [facility] Procedures Date Procedure Procedure Detail Performing Clinician Start: 04-27-2020 Mammography Luisito schroeder MD Work Phone: Start: 04-29-2019 Basic metabolic pane l calcium total Magi R Nia Work Phone: Start: 04-29-2019 Blood count complete automated Magi R Nia Work Phone: Plan of Treatment Date Care Activity Detail Author Start: 2029 RSV Immunization aged 60 or older (1 - 1-dose 60+ series) RSV Immunization aged 60 or older (1 - 1-dose 60+ series) [facility] Start: 11-21-2023 End: 11-21-2023 Patient encounter procedure 11/21/2023 7:30 AM EDT Procedure Visit [facility] [address] [place] [address] [place] [id number] Lusiito Donovan MD [address] [facility] [place] [address] [facility] Start: 08-20-2023 End: 08-20-2023 Patient encounter procedure 08/20/2023 7:30 AM EST Procedure Visit [facility] [address] [place] [address] [place] [address] Luisito Donovan MD [address] [facility] [place] [address] [facility] Start: 05-21-2023 End: 05-21-2023 Patient encounter procedure 05/21/2023 8:00 AM EDT Procedure Visit [facility] [address] [place] [address] [place] [id number] Luisito Donovan MD [address] [facility] [place] [address] [facility] Start: 04-25-2023 COVID-19 Vaccine ( season) COVID-19 Vaccine ( season) [facility] Start: 04-25-2023 Influenza vaccination [facility] Start: 02-18-2023 End: 02-18-2023 Patient encounter procedure 02/18/2023 9:30 AM EDT Procedure Visit [facility] [address] [facility] [place] [address] [place] [id number] Luisito Donovan MD [address] [place] [address] [place] [address] [facility] Start: 06-20-2021 COVID-19 Vaccine (3 - Booster for Moderna series) COVID-19 Vaccine (3 - Booster for Moderna series) [facility] Start: 06-20-2021 COVID-19 Vaccine (3 - Moderna series) COVID-19 Vaccine (3 - Moderna series) [facility] Start: 04-27-2021 Screening for malignant neoplasm of breast Mammogram [facility] Start: 2019 Screening for malignant neoplasm of lung Lung Cancer Screening [facility] Start: 2019 Zoster Vaccines (1 of 2) Zoster Vaccines (1 of 2) [facility] Start: 05-04-2019 End: 05-04-2019 Appointment 05/04/2019 Appointment General Surgery Godwin Arroyo MD [address] [place] [address], [address] [place] [address] [phone] [facility] General Surgery Start: 04-25-2019 Influenza vaccination Flu vaccine (#1) [place] Start: 04-04-2018 DTaP/Tdap/Td vaccine (6 - Td) DTaP/Tdap/Td vaccine (6 - Td) [place] Start: 04-04-2018 DTaP/Tdap/Td Vaccines (6 - Td or Tdap) DTaP/Tdap/Td Vaccines (6 - Td or Tdap) [facility] Start: 05-14-2010 MMR Vaccines (1 of 1 - Standard series) MMR Vaccines (1 of 1 - Standard series) [facility] Start: 2009 Diabetes screen Diabetes screen [place] Start: 2009 Lipid screen Lipid screen [place] Start: 1988 Urine screening for protein Diabetes: Urine Protein Screening [facility] Start: 1987 Hepatitis C screening Hepatitis C Screening [facility] Start: 1984 HIV screen HIV screen [place] Start: 1981 Depression Screening Depression Screening [facility] Start: 1979 Diabetic foot examination Diabetes: Foot Exam [facility] Start: 1979 Glaucoma screening Diabetes: Retinopathy Screening [facility] Start: 1979 Preventive dental service Diabetes: Dental Exam [facility] Start: 1975 Pneumococcal 0-64 years Vaccine (1 of 1 - PPSV23) Pneumococcal 0-64 years Vaccine (1 of 1 - PPSV23) [place] Start: 1969 Cyanocobalamin vitamin b-12 Vitamin B-12 [facility] Start: 1969 Diabetes: Celiac Disease Screening Diabetes: Celiac Disease Screening [facility] Start: 1969 Hemoglobin A1c measurement Diabetes: Hemoglobin A1C [facility] Start: 1969 HIV screening HIV Screening [facility] Start: 1969 Lipid panel Lipid Panel [facility] Start: 1969 Screening for malignant neoplasm of colon [facility] Start: 1969 Thyroid stimulating hormone measurement TSH Level [facility] EKG 12 Lead EKG 12 Lead ECG Routine 04/29/2019 4:31 PM EDT [place] Immunizations Immunization Date Immunization Notes Care Provider Fa cility 08-25-2016 influenza virus vacc ine, unspecified formulation Luisito Donovan MD Work Phone: [facility] Payers Date Payer Category Payer Unknown [employer] [id number] 2023-Present [address] [place] [address] Commercial [id number] 2023 Unknown [id number] 2023 Private Health Insurance [facility] [id number] 2023-Present [address] [place] [address] Commercial [id number] 2016 Unknown [employer] ACCESS [place] xxxxxxxxxxxx 2016-Present [address] [place] [address] xxxxxxxxxxxx [id number] 1969 Unknown [id number] 1969 Unknown [id number] 1969 Unknown [id number] 1959 Private Health Insurance [id number] 1959 Private Health Insurance [id number] Social History Date Type Detail Facility Start: 04-29-2019 Tobacco smoking stat [facility] Current every day smoker [place] Start: 08-25-1986 End: 05-25-2021 History of tobacco use Cigarette Sm[place] Start: 04-29-2019 End: 05-21-2023 Cigarettes smoked current (pack per day) - Reported [place] Start: 04-29-2019 End: 05-21-2023 Alcohol intake Not Currently [place] Sex Assigned At Not on file [place] Start: 01-27-2023 End: 08-21-2023 Tobacco smoking status SCIS Ex-smoker [facility] Start: 08-25-1986 End: 05-25-2021 History of tobacco use Current smoker [facility] Start: 01-27-2023 End: 08-21-2023 Tobacco use and exposure Smokeless tobacco non-user [facility] Start: 01-27-2023 End: 08-21-2023 Alcohol intake Ex-drinker (finding) [facility] Start: 1970 Sex Assigned At Female [facility] Start: 01-26-2023 Gender identity Identifies as female gender (finding) [facility] Start: 01-26-2023 Sexual orientation Heterosexual (fin ding) [facility] Start: 01-17-2023 End: 02-18-2023 Exposure to SARS-CoV-2 (event) Not sure [facility] Medical Equipment Procedure Code Equipment Code Equipment Origin al Text Equipment Identifier Dates CINDI 32G X 6 MM [facility] [id number] Start: 03-10-2019 Clinical Notes 01-27-2023 to 08-21-2023 PALOMO Juan CNP - 08/21/2023 7:30 AM Pam Rosas MA - 08/21/2023 7:30 AM Kemal Donovan MD - 05/21/2023 8:00 AM EDTKarina Humphries MA - 05/21/2023 8:00 AM EDT Note Date & Type Note Facility 08-21-2023 Note DEPARTMENT OF NEUROL OGY BOTOX PROCEDURE NOTE FOR SPASTICITY Patient: Delmer Avila : 1970 Diagnosis: Spasticity [R25.2] Procedure: Botox injections in both lower extremities. All the injection were performed under EMG monitoring. Prior to procedure risks, benefits, alternatives, and potential side effects were reviewed with patient. Specifically reviewed possible risk of temporary muscle weakness. All questions were answered, patient expressed understanding, verbal consent given for procedure. No Numbing spray applied/removed. Botox was injected with the parameters below: With the patient in sitting position, she received Botox injections in the neck and skull muscles. Patient received the following doses: 1. R biceps femoris 100 units in 3 different injection sites. 2. L biceps femoris 50 units into injection sites. 3. R Flexor digitorum longus 75 units 1 injection site 4. R Flexor digitorum brevis 50 units 1 injection total units injected 275 units. Units discarded 25 units. Comments: Patient received Botox injections into the lower extremities following the same doses patient had at the [facility]. The patient reports improvement in spasticity following Botox injections. Patient will return to the neurology clinic in 3 months for Botox injections, sooner if needed. [x] Pt tolerated procedure well. Pt advised to avoid exercise or strenuous physical activity for 24 hours. Post treatment expectations reviewed in detail. PALOMO Juan CNP [facility] 08-21-2023 History of Present illness Narrative DEPARTMENT OF NEUROLOGY BOTOX PROCEDURE NOTE FOR SPASTICITY Patient: Delmer Avila : 1970 Diagnosis: Spasticity [R25.2] Procedure: Botox injections in both lower extremities. All the injection were performed under EMG monitoring. Prior to procedure risks, benefits, alternatives, and potential side effects were reviewed with patient. Specifically reviewed possible risk of temporary muscle weakness. All questions were answered, patient expressed understanding, verbal consent given for procedure. No Numbing spray applied/removed. Botox was injected with the parameters below: With the patient in sitting position, she received Botox injections in the neck and skull muscles. Patient received the following doses: 1. R biceps femoris 100 units in 3 different injection sites. 2. L biceps femoris 50 units into injection sites. 3. R Flexor digitorum longus 75 units 1 injection site 4. R Flexor digitorum brevis 50 units 1 injection total units injected 275 units. Units discarded 25 units. Comments: Patient received Botox injections into the lower extremities following the same doses patient had at the [facility]. The patient reports improvement in spasticity following Botox injections. Patient will return to the neurology clinic in 3 months for Botox injections, sooner if needed. [x] Pt tolerated procedure well. Pt advised to avoid exercise or strenuous physical activity for 24 hours. Post treatment expectations reviewed in detail. PALOMO Juan CNP Administrations This Visit onabotulinumtoxin A (BOTOX) injection 200 Units Admin Date 08/21/2023 Action Given Dose 275 Units Route IntraMUSCular Site Other Administered By BRANDON Ordering Provider: Felix Knight NP [facility]:[id number] x3 Lot#: [id number] x3 Line Maintenance: [employer] Patient Supplied?: No, buy and bill documented in this encounter [facility] 05-21-2023 Note DEPARTMENT OF NEUROL OGY BOTOX PROCEDURE NOTE FOR SPASTICITY Patient: Delmer Avila : 1970 Diagnosis: Spasticity [R25.2] Procedure: Botox injections in both lower extremities. All the injection were performed under EMG monitoring. Prior to procedure risks, benefits, alternatives, and potential side effects were reviewed with patient. Specifically reviewed possible risk of temporary muscle weakness. All questions were answered, patient expressed understanding, verbal consent given for procedure. No Numbing spray applied/removed. Botox was injected with the parameters below: With the patient in sitting position, she received Botox injections in the neck and skull muscles. Patient received the following doses: 1. R biceps femoris 100 units in 3 different injection sites. 2. L biceps femoris 50 units into injection sites. 3. R Flexor digitorum longus 75 units 1 injection site 4. R Flexor digitorum brevis 50 units 1 injection total units injected 275 units. Units discarded 25 units. Comments: Patient received Botox injections into the lower extremities following the [facility] doses [facility] [facility] Patient will return to the neurology clinic in 3 months at that time we will arrange for patient injections in the bilateral lower extremities. Thank you [x] Pt tolerated procedure well. Pt advised to avoid exercise or strenuous physical activity for 24 hours. Post treatment expectations reviewed in detail. LUISITO DONOVAN MD [facility] 05-21-2023 History of Present illness Narrative DEPARTMENT OF NEUROLOGY BOTOX PROCEDURE NOTE FOR SPASTICITY Patient: Delmer Avila : 1970 Diagnosis: Spasticity [R25.2] Procedure: Botox injections in both lower extremities. All the injection were performed under EMG monitoring. Prior to procedure risks, benefits, alternatives, and potential side effects were reviewed with patient. Specifically reviewed possible risk of temporary muscle weakness. All questions were answered, patient expressed understanding, verbal consent given for procedure. No Numbing spray applied/removed. Botox was injected with the parameters below: With the patient in sitting position, she received Botox injections in the neck and skull muscles. Patient received the following doses: 1. R biceps femoris 100 units in 3 different injection sites. 2. L biceps femoris 50 units into injection sites. 3. R Flexor digitorum longus 75 units 1 injection site 4. R Flexor digitorum brevis 50 units 1 injection total units injected 275 units. Units discarded 25 units. Comments: Patient received Botox injections into the lower extremities following the same doses patient had at the [facility]. Patient will return to the neurology clinic in 3 months at that time we will arrange for patient injections in the bilateral lower extremities. Thank you [x] Pt tolerated procedure well. Pt advised to avoid exercise or strenuous physical activity for 24 hours. Post treatment expectations reviewed in detail. LUISITO DONOVAN MD Administrations This Visit onabotulinumtoxin A (BOTOX) injection 200 Units Admin Date 05/21/23 Action Given Dose 200 Units Route IntraMUSCular Site Other Administered By LUISITO DONOVAN MD Ordering Provider: LUISITO DONOVAN MD NDC: 5885-7910-08, [id number] Lot#: [id number] Line Maintenance: Allergan Patient Supplied?: No documented in this encounter [facility] 02-18-2023 Note DEPARTMENT OF NEUROL OGY BOTOX PROCEDURE NOTE FOR HEADACHE Date: 02/18/23 Patient: Delmer Avila : 1970 Diagnosis: Spasticity [R25.2] Procedure: Botox injections into both lower extremities. All the injection were performed under EMG monitoring Prior to procedure risks, benefits, alternatives, and potential side effects were reviewed with patient. Specifically reviewed possible risk of temporary muscle weakness. All questions were answered, patient expressed understanding, verbal consent given for procedure. He has numbing spray applied/removed. Botox was injected with the parameters below: With the patient in sitting position, she received Botox injections in the lower extremity muscles. Patient receive the following doses: 1. Right biceps femoralis 25, 25, 50 2. Left biceps femoralis 25, 25 3. Right flexor digitorum longus 75 units. 4. Right flexor hallucis brevis 50 units Total units injected 275 units. Units discarded 25 units. Comments: Patient received her usual Botox injections in both lower extremities. All the injection were performed under EMG monitoring. Patient was instructed to look for spasms in both hamstrings. If patient is doing well we will repeat the same doses in 3 months. [x] Pt tolerated procedure well. Pt advised to avoid exercise or strenuous physical activity for 24 hours. Post treatment expectations reviewed in detail. LUISITO DONOVAN MD [facility] 02-18-2023 Note DEPARTMENT OF NEUROL OGY BOTOX PROCEDURE NOTE FOR SPASTICITY Date:02/19/23 Patient: Delmer Avila : 1970 Diagnosis: Spasticity [R25.2] Procedure: Botox injections in both lower extremities. All the injection were performed under EMG monitoring. Prior to procedure risks, benefits, alternatives, and potential side effects were reviewed with patient. Specifically reviewed possible risk of temporary muscle weakness. All questions were answered, patient expressed understanding, verbal consent given for procedure. No Numbing spray applied/removed. Botox was injected with the parameters below: With the patient in sitting position, she received Botox injections in the neck and skull muscles. Patient receive the following doses: 1. R biceps femoris 100 units in 3 different injection sites. 2. Left biceps femoris 50 units into injection sites. 3. R Flexor digitorum longus 75 units 1 injection site 4. R Flexor hallucis brevis 50 units 1 injection total units injected 275 units. Units discarded 25 units. Comments: Patient received Botox injections into the lower extremities following the same doses patient have a [facility]. Patient will return to the neurology clinic in 3 months at that time we will arrange if patient bilateral lower extremities. Thank you [x] Pt tolerated procedure well. Pt advised to avoid exercise or strenuous physical activity for 24 hours. Post treatment expectations reviewed in detail. LUISITO DONOVAN MD [facility] 02-18-2023 History of Present illness Narrative Administrations This Visit onabotulinumtoxin A (BOTOX) injection 200 Units Admin Date 02/18/23 Action Given Dose 200 Units Route IntraMUSCular Site Other Administered By LUISITO DONOVAN MD Ordering Provider: LUISITO DONOVAN MD [facility]: [id number] [id number] Lot#: [id number] Line Maintenance: Allergan Patient Supplied?: No DEPARTMENT OF NEUROLOGY BOTOX PROCEDURE NOTE FOR HEADACHE Date: 02/18/23 Patient: Delmer Avila : 1970 Diagnosis: Spasticity [R25.2] Procedure: Botox injections into both lower extremities. All the injection were performed under EMG monitoring Prior to procedure risks, benefits, alternatives, and potential side effects were reviewed with patient. Specifically reviewed possible risk of temporary muscle weakness. All questions were answered, patient expressed understanding, verbal consent given for procedure. He has numbing spray applied/removed. Botox was injected with the parameters below: With the patient in sitting position, she received Botox injections in the lower extremity muscles. Patient receive the following doses: 1. Right biceps femoralis 25, 25, 50 2. Left biceps femoralis 25, 25 3. Right flexor digitorum longus 75 units. 4. Right flexor hallucis brevis 50 units Total units injected 275 units. Units discarded 25 units. Comments: Patient received her usual Botox injections in both lower extremities. All the injection were performed under EMG monitoring. Patient was instructed to look for spasms in both hamstrings. If patient is doing well we will repeat the same doses in 3 months. [x] Pt tolerated procedure well. Pt advised to avoid exercise or strenuous physical activity for 24 hours. Post treatment expectations reviewed in detail. LUISITO DONOVAN MD documented in this encounter [facility] 02-18-2023 History of Present illness Narrative Administrations This Visit onabotulinumtoxin A (BOTOX) injection 200 Units Admin Date 02/18/23 Action Given Dose 200 Units Route IntraMUSCular Site Other Administered By LUISITO DONOVAN MD Ordering Provider: LUISITO DONOVAN MD ND: [id number] Lot#: [id number] Line Maintenance: Allergan Patient Supplied?: No DEPARTMENT OF NEUROLOGY BOTOX PROCEDURE NOTE FOR HEADACHE Date: 02/18/23 Patient: Delmer Avila : 1970 Diagnosis: Spasticity [R25.2] Procedure: Botox injections into both lower extremities. All the injection were performed under EMG monitoring Prior to procedure risks, benefits, alternatives, and potential side effects were reviewed with patient. Specifically reviewed possible risk of temporary muscle weakness. All questions were answered, patient expressed understanding, verbal consent given for procedure. He has numbing spray applied/removed. Botox was injected with the parameters below: With the patient in sitting position, she received Botox injections in the lower extremity muscles. Patient receive the following doses: 1. Right biceps femoralis 25, 25, 50 2. Left biceps femoralis 25, 25 3. Right flexor digitorum longus 75 units. 4. Right flexor hallucis brevis 50 units Total units injected 275 units. Units discarded 25 units. Comments: Patient received her usual Botox injections in both lower extremities. All the injection were performed under EMG monitoring. Patient was instructed to look for spasms in both hamstrings. If patient is doing well we will repeat the same doses in 3 months. [x] Pt tolerated procedure well. Pt advised to avoid exercise or strenuous physical activity for 24 hours. Post treatment expectations reviewed in detail. LUISITO DONOVAN MD DEPARTMENT OF NEUROLOGY BOTOX PROCEDURE NOTE FOR SPASTICITY Date:02/19/23 Patient: Delmer Avila : 1970 Diagnosis: Spasticity [R25.2] Procedure: Botox injections in both lower extremities. All the injection were performed under EMG monitoring. Prior to procedure risks, benefits, alternatives, and potential side effects were reviewed with patient. Specifically reviewed possible risk of temporary muscle weakness. All questions were answered, patient expressed understanding, verbal consent given for procedure. No Numbing spray applied/removed. Botox was injected with the parameters below: With the patient in sitting position, she received Botox injections in the neck and skull muscles. Patient receive the following doses: 1. R biceps femoris 100 units in 3 different injection sites. 2. Left biceps femoris 50 units into injection sites. 3. R Flexor digitorum longus 75 units 1 injection site 4. R Flexor hallucis brevis 50 units 1 injection total units injected 275 units. Units discarded 25 units. Comments: Patient received Botox injections into the lower extremities following the same doses patient have a [facility]. Patient will return to the neurology clinic in 3 months at that time we will arrange if patient bilateral lower extremities. Thank you [x] Pt tolerated procedure well. Pt advised to avoid exercise or strenuous physical activity for 24 hours. Post treatment expectations reviewed in detail. LUISITO DONOVAN MD documented in this encounter [facility] 01-27-2023 History of Present illness Narrative Department of Neurological Sciences Initial Consult Note 01/27/2023 CHIEF COMPLAINT: Chief Complaint Patient presents with New Patient Discuss botox injections spasticity in b/l legs Reason for Consult: Spasticity secondary to Multiple sclerosis HISTORY OF PRESENT ILLNESS: The patient is a 52 y.o. female who presents with complaint of spasticity. Patient states she carries a diagnosis of Multiple Sclerosis. She states she has issues with cramping in her legs bilaterally. She states she experiences pain and spasm in the hamstrings all the way down the legs. She states she has been experiencing her toes curling under. She was receiving Botox from her previous Neurologist and is here today to establish and receive botox here at the clinic. --She is positive for hypertension, depression, prediabetes, osteopenia, hypothyroidism, GERD, Asthma, Adrenal gland disease, spondylosis. --There is family history of depression, crohns disease, parkinsons disease, hypertension, heart attack. --Patient is a former cigarette smoker and uses and electronic cigarette occasionally with nicotine. She currently does not drink alcohol. She uses marijuana. Past Medical History: Past Medical History: Diagnosis Date Adrenal gland disease (HCC) Asthma Bradycardia Bronchitis couple times per year Depression Endometriosis history of Gastritis H. pylori infection H/O benign breast biopsy marker still in place H/O gastroesophageal reflux (GERD) Hypertension Hypothyroid MS (multiple sclerosis) (HCC) Osteopenia Pelvic prolapse Prediabetes Spondylosis mulit level L2-5 Past Surgical History: Past Surgical History: Procedure Laterality Date CHOLECYSTECTOMY COLONOSCOPY COLONOSCOPY GALLBLADDER SURGERY 2011 LAPAROSCOPY DIAGNOSTIC / BIOPSY / ASPIRATION / LYSIS multiple LUNG SURGERY lavage for colapsed lung RECTOCELE REPAIR 05/04/2019 VAGINAL VAULT SUSPENSION, CYSTOSCOPY TONSILLECTOMY (HISTORICAL) 1976 TOTAL ABDOMINAL HYSTERECTOMY BSO WISDOM TOOTH EXTRACTION 1987 Medications: Current Outpatient Medications Medication Sig Dispense Refill acyclovir (Zovirax) 400 MG tablet Take 400 mg by mouth 2 times daily. baclofen (Lioresal) 10 MG tablet TAKE 2 TABLETS BY MOUTH 4 TIMES A DAY 30 DAYS buPROPion SR (Wellbutrin SR) 150 MG 12 hr tablet Take 150 mg by mouth 2 times daily. buPROPion XL (Wellbutrin XL) 300 MG 24 hr tablet Take 300 mg by mouth every morning. celecoxib (CeleBREX) 200 MG capsule TAKE 1 ORAL EVERY DAY FOR 28 DAYS cholecalciferol (Vitamin D-3) 125 MCG (5000 UT) capsule TAKE 1 CAPSULE BY MOUTH EVERY DAY FOR 90 DAYS Dalfampridine ER (Ampyra) 10 MG tablet sustained-release 12 hour Take 10 mg by mouth in the morning and 10 mg in the evening. desvenlafaxine (Pristiq) 50 MG 24 hr tablet Take 50 mg by mouth daily. estrogens, conjugated,-methylTESTOSTERone (Estratest HS) 0.625-1.25 MG tablet Every 24 hours. levothyroxine (Synthroid, Levoxyl) 88 MCG tablet Every 24 hours. losartan (Cozaar) 25 MG tablet Take 25 mg by mouth daily. modafinil (Provigil) 200 MG tablet TAKE 1 TABLET BY MOUTH IN THE MORNING FOR 30 DAYS triamterene-hydrochlorothiazide (Maxzide-25) 37.5-25 MG tablet Take 1 tablet by mouth every morning. Victoza 18 MG/3ML injection INJECT 1.8 MG UNDER THE SKIN ONCE DAILY No current facility-administered medications for this visit. Allergies: Prochlorperazine, Doxycycline, Levofloxacin, and Sulfa antibiotics Social History: Social History Socioeconomic History Marital status: Significant Other Spouse name: Not on file Number of children: Not on file Years of education: Not on file Highest education level: Not on file Occupational History Not on file Tobacco Use Smoking status: Former Packs/day: 0.50 Types: Cigarettes Smokeless tobacco: Never Vaping Use Vaping Use: Some days Substances: Nicotine Substance and Sexual Activity Alcohol use: Not Currently Drug use: Yes Types: Marijuana Sexual activity: Not on file Other Topics Concern Not on file Social History Narrative Not on file Social Determinants of Health Financial Resource Strain: Not on file Food Insecurity: Not on file Transportation Needs: Not on file Physical Activity: Not on file Stress: Not on file Social Connections: Not on file Intimate Partner Violence: Not on file Housing Stability: Not on file Family History: Family History Problem Relation Name Age of Onset Depression Mother Crohn's disease Sister Depression Sister Parkinson's Disease Mother's Brother Hypertension Maternal Grandmother Heart attack Maternal Grandfather Depression Maternal Grandfather REVIEW OF SYSTEMS: Review of Systems Constitutional: Positive for fatigue. Negative for diaphoresis and fever. HENT: Negative. Eyes: Negative. Respiratory: Negative. Negative for shortness of breath. Cardiovascular: Negative. Negative for chest pain and palpitations. Gastrointestinal: Negative. Negative for abdominal pain, nausea and vomiting. Endocrine: Negative. Genitourinary: Negative. Musculoskeletal: Positive for back pain, myalgias and neck pain. Skin: Negative. Allergic/Immunologic: Negative. Neurological: Negative. Negative for dizziness, syncope, weakness, light-headedness and headaches. Hematological: Negative. Psychiatric/Behavioral: Negative. Negative for confusion. PHYSICAL EXAM: Vitals: BP 131/75 (BP Location: Right arm) Pulse 54 Temp 37 C (98.6 F) Wt 226 lb (103 kg) BMI 40.03 kg/m Physical Exam Constitutional: Appearance: Normal appearance. HENT: Head: Normocephalic and atraumatic. Nose: Nose normal. Mouth/Throat: Mouth: Mucous membranes are moist. Pharynx: Oropharynx is clear. Eyes: General: Vision grossly intact. Gaze aligned appropriately. Extraocular Movements: Extraocular movements intact. Conjunctiva/sclera: Conjunctivae normal. Pupils: Pupils are equal, round, and reactive to light. Neck: Trachea: Trachea and phonation normal. Cardiovascular: Rate and Rhythm: Normal rate and regular rhythm. Pulses: Normal pulses. Heart sounds: Normal heart sounds. Pulmonary: Effort: Pulmonary effort is normal. Breath sounds: Normal breath sounds. Abdominal: General: Abdomen is flat. Bowel sounds are normal. Palpations: Abdomen is soft. Musculoskeletal: General: Normal range of motion. Cervical back: Normal range of motion and neck supple. Skin: General: Skin is warm and dry. Neurological: General: No focal deficit present. Mental Status: She is alert and oriented to person, place, and time. Mental status is at baseline. Cranial Nerves: Cranial nerves 2-12 are intact. Sensory: Sensory deficit present. Motor: Weakness and abnormal muscle tone present. Coordination: Coordination abnormal. Gait: Gait abnormal. Deep Tendon Reflexes: Babinski sign present on the right side. Reflex Scores: Tricep reflexes are 2+ on the right side and 2+ on the left side. Bicep reflexes are 2+ on the right side and 2+ on the left side. Brachioradialis reflexes are 2+ on the right side and 2+ on the left side. Patellar reflexes are 3+ on the right side and 3+ on the left side. Achilles reflexes are 3+ on the right side and 3+ on the left side. 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 Psychiatric: Attention and Perception: Attention normal. Mood and Affect: Mood normal. Speech: Speech normal. Behavior: Behavior normal. Behavior is cooperative. Thought Content: Thought content normal. Cognition and Memory: Cognition normal. Judgment: Judgment normal. Impression: Diagnosis Plan 1. Spastic diplegia (CMS/HCC) (HCC) 2. Multiple sclerosis (HCC) Plan: We are going to perform Botox injections into both lower extremities following the same doses patient was receiving in [facility]. Patient will require 300 units of Botox. The injection will be performed as follow: Biceps femoris 25 , 25, 50, right Biceps femoris 25,25, left Flexor digitorum longus 75 right Flexor hallucis brevis 50 units. 300 units botox, spasticity LUISITO DONOVAN MD documented in this encounter [facility] Diagnosis Spasticity- Primary Abnormal involuntary movements [facility] Diagnosis Spasticity- Primary Abnormal involuntary movements [facility] Diagnosis Spastic diplegia (CMS/HCC) (HCC)- Primary Unspecified infantile cerebral palsy documented [facility] this [facility]* Diagnosis Spastic diplegia (CMS/HCC) (HCC)- Primary Unspecified infantile cerebral palsy Multiple sclerosis (HCC) Multiple sclerosis documented in this encounter [facility] Summary Purpose Family History No Family History Records FoundNo Family History Records FoundNo Family History Records FoundNo Family History Records Found Advance Directives No Advanced Directives Records FoundDocuments on File Type Date Recorded Patient Blood Typer Expl anation Advance Directives and Living Will Power of Progress Developer Discharge Instructions * Instructions* Kenzie Hernández RN - 04/29/2019 Shower with an antibacterial soap such as Dial or Safeguard. Please bring your [facility] Surgical Information folder on the day of surgery. Please grzegorz the last dose taken (date and time ) on your Daily Medications List provided in your After Visit Summary. Please bring a photo ID and insurance information TAKE the following medications the morning of your surgery: AMLODIPINE( NORVASC), LEVOTHYROXINE( SYNTHROID), SERTRALINE( ZOLOFT), BUPROPION( WELLBUTRIN), DALFAMPRIDINE( AMPYRA) You may take your prescription pain medications. You may take Tylenol (Acetaminophen) if needed forpain. No Motrin, Ibuprofen, or Advil 24 hours prior to surgery, or longer if instructed by your surgeon. No Aleve or Naprosyn 3 days prior to surgery, or longer if instructed by your surgeon. Do not take aspirin or aspirin containing products for 5 days before surgery. Follow all instructions given to you by Dr. ARROYO You will receive a reminder call the day before surgery with your Same Day Surgery arrival time. If you have specific questions, please call your surgeon. Please take the H elevator to the first floor- Same Day Surgery You may use the free garment mender parking at the main entrance on [address] [place] [address], or the free parking in the [facility] parking deck * Attachments The following attachments cannot be sent through Care Everywhere. * Pelvic Prolapse: Pre-op (Thai) * Cystoscopy: Pre-op (Thai) documented in this encounter History of Present Illness * Kenzie Hernández RN - 04/29/2019 4:16 PM EDT Surgery scheduling notified of Latex allergy. documented in this encounter Reason for Referral Specialty Diagnoses / Procedures Referred By Contac t Referred To Contact Diagnoses Spasticity Luisito Donovan MD [address] [place] [address] Referral ID Status Reason Start Date Expiration Date V isits Requested Visits Authorized [id number] Pending Review 02/18/2023 08/17/2023 1 1 Specialty Diagnoses / Procedures Referred By Contac t Referred To Contact Diagnoses Spastic diplegia (CMS/HCC) (HCC) Felix Knight, REINFORCING METAL WORKER - MATERIALS TECHNICIAN [address] [place] [address] Referral ID Status Reason Start Date Expiration Date V isits Requested Visits Authorized [id number] Pending Review 05/21/2023 11/17/2023 1 1 Referral ID Status Reason Start Date Expiration Date V isits Requested Visits Authorized [id number] Pending Review 08/21/2023 08/15/2024 1 1 Additional Source Comments INFORMATION SOURCE (unrecogn ized section and content) DATE CREATED AUTHOR AUTHOR'S ORGANIZ ATION 05/23/2019 [facility] DATE CREATED AUTHOR AUTHOR'S ORGANIZ ATION 08/17/2023 [facility] DATE CREATED AUTHOR AUTHOR'S ORGANIZ ATION [facility] Reason for Visit (unrecogniz ed section and content) Specialty Diagnoses / Procedures Referred By Contac t Referred To Contact Diagnoses Spastic diplegia (CMS/HCC) (HCC) Felix Knight APRN - DARRIAN [address] [place] [address] Referral ID Status Reason Start Date Expiration Date V isits Requested Visits Authorized [id number] Pending Review 08/21/2023 08/15/2024 1 1 Reason Comments New Patient Discuss botox inject ions spasticity in b/l legs Specialty Diagnoses / Procedures Referred By Contac t Referred To Contact Neurology Diagnoses Multiple sclerosis (HCC) Procedures SC OFFICE/OUTPATIENT NEW MODERATE MDM 45-59 MINUTES Inga James [address] [place] [address] Luisito Donovan MD [address] [place] [address] [place] [address] Referral ID Status Reason Start Date Expiration Date V isits Requested Visits Authorized [id number] Pending Review 12/06/2022 12/06/2023 1 1 Reason Comments Procedure Botox- Spasticity Specialty Diagnoses / Procedures Referred By Contac t Referred To Contact Diagnoses Spasticity Luisito Donovan MD [address] [place] [address] [place] [address] Referral ID Status Reason Start Date Expiration Date V isits Requested Visits Authorized [id number] Pending Review 02/18/2023 08/17/2023 1 1 Reason Onset Date Comments Med Refill 02/18/2023 Referral ID Status Reason Start Date Expiration Date V isits Requested Visits Authorized [id number] Pending Review 05/21/2023 11/17/2023 1 1 Care Teams (unrecognized sec tion and content) Legal Investigator Relationship Specialty Start Date End Date Keith Wu B [address] [place] [address] PCP - General 04/06/19 Legal Investigator Relationship Specialty Start Date End Date Antonieta Wube B [address] [place] [address] PCP - General 04/06/19 Legal Investigator Relationship Specialty Start Date End Date Antonieta Wube B [address] [place] [address] PCP - General 04/06/19 Legal Investigator Relationship Specialty Start Date End Date Keith Wu B [address] [place] [address] PCP - General Internal Medicine 05/21/23 Legal Investigator Relationship Specialty Start Date End Date Antonieta Wube B [address] [place] [address] PCP - General Internal Medicine 05/21/23 FOR RECORDS PERTAINING TO PATIENTS WHO ARE OR HAVE BEEN ENROLLED IN A CHEMICAL DEPENDENCY/SUBSTANCEABUSE PROGRAM, SOME INFORMATION MAY BE OMITTED. This clinical summary was aggregated from multiple sources. Caution should be exercised in using it in the provision of clinical care. This summary normalizes information from multiple sources, and as a consequence, information in this document may materially change the coding, format and clinical context of patient data. In addition, data may be omitted in some cases. CLINICAL DECISIONS SHOULD BE BASED ON THE PRIMARY CLINICAL RECORDS. [facility] [employer] provides no warranty or guarantee of the accuracy or completeness of information in this document.
[2023-10-06 12:38] LABS: Absolute Neutrophil Count 3.5 X10^3/uL (2.0-7.7); Basophil# 0.04 X10^3/uL; Basophil% 0.8 % (0-1); Eosinophils% 1.9 % (0-5); Hematocrit 39.2 % (37-47); Hemoglobin 12.7 g/dL (12.0-15.0); Lymphocyte % 23.1 % (19-41); Mean Corp Hgb Conc 32.4 g/dL (32-36); Mean Corpuscular Hgb 33.2 pg (27.0-32.0); Mean Corpuscular Volume 102.3 fL (81-99); Mean Platelet Vol. 8.9 fl (6.2-12.0); Monocyte# 0.37 X10^3/uL; Monocyte% 7.1 % (0-10); NRBC Flagged by Analyzer 0 % (0-5); Neutrophil # 3.47 X10^3/uL (2.7-7.7); Neutrophil % 66.7 % (47-70); Platelet Count 271 K/mm3 (150-450); RBC Distribution Width CV 13.5 % (11.6-14.6); Red Blood Count 3.83 M/mm3 (4.2-5.4); White Blood Count 5.2 K/mm3 (4.4-11.0)
[2023-10-06 13:22] LABS: AST(SGOT) 20 U/L (15-37); Alanine Aminotransfer ALT/SGPT 25 U/L (13-56); Albumin, Serum 3.7 g/dL (3.2-5.0); Alkaline Phosphatase 76 U/L (45-117); Anion Gap 7 (5-15); BUN 13 mg/dL (7-18); Calcium,Total 9.3 mg/dL (8.5-10.1); Chloride 108 mmol/L (98-107); Cholesterol 198 mg/dL (200); Creatinine, Serum 1.44 mg/dL (0.55-1.02); EST Glomerular Filtration Rate 40 mL/min (>60); Est Glom Filt Rate - Afr Amer 49 mL/min (>60); Globulin 3.6 g/dL (2.2-4.2); Glucose 86 mg/dL (74-106); High Density Lipoprotein 52 mg/dL; Potassium 4.1 mmol/L (3.5-5.1); Protein, Total 7.3 g/dL (6.4-8.2); Sodium Level 142 mmol/L (136-145); Thyroid Stim Hormone (TSH) 1.76 uIU/mL (0.358-3.74); Triglycerides 56 mg/dL; Very Low Density Lipoprotein 11 mg/dL (5-40)
[2023-10-06 14:56] LABS: Vitamin B12 502 pg/mL (211-911)
== END | disposition home or self-care (01) ==
LOC: BIMLAB 10:35
PROVIDERS: PCP Internal Medicine; Referring Provider Internal Medicine; Visit Provider Internal Medicine
DX: E11.9 Type 2 diabetes mellitus without complications (principal); D75.89 Other specified diseases of blood and blood-forming organs; I10 Essential (primary) hypertension; E03.9 Hypothyroidism, unspecified
CPT/HCPCS: 36415; 80053; 80061; 82607; 82746; 84443; 85025

== ENCOUNTER → 2023-10-20 | Outpatient (CLI) | payer OTHER, SELFPAY ==
--- OUTSIDE RECORDS SUMMARY | 2023-10-20 06:45 | XMS RPT_ITS | CCD ---
Author Name Unknown Address [address] [place] [address] Organization [facility] Care Team Providers Care Property Management Assistant Name Role Phone Oleghe, Efewongbe B Primary Care Provider Lolis oro OLETOROE, EFEWONGBE Primary Care Unavailable ISAI GARRISON, DR TANNER Attending Unavailable ISAI GARRISON, DR TANNER Admitting Unavailable ISAI GARRISON, DR TANNER Consulting Unavailable ISAI GARRISON, DR TANNER Consulting Unavailable ERIK GARRISON, OLEG Consulting Unavailable ERIK GARRISON, OLEG Consulting Unavailable OLEGHE, EFEWONGBE Consulting Unavailable OLEGHE, EFEWONGBE Consulting Unavailable OLEGHE, EFEWONGBE Primary Care Unavailable ISAI GARRISON, DR TANNER Admitting Unavailable ISAI GARRISON, DR TANNER Consulting Unavailable ISAI GARRISON, DR TANNER Attending Unavailable ISAI GARRISON, DR TANNER Consulting Unavailable JORDIN MEDRANO MD Consulting Unavailable MITCHELL GARRISON, JORDIN Hammond Consulting Unavailable OLEGHE, EFEWONGBE Consulting Unavailable OLEGHE, EFEWONGBE Consulting Unavailable OLEGHE, EFEWONGBE Primary Care Unavailable ISAI GARRISON, DR TANNER Admitting Unavailable OLEGHE, EFEWONGBE Consulting Unavailable ISAI GARRISON, DR TANNER Attending Unavailable OLEGHE, EFEWONGBE Consulting Unavailable Oleghe, Efewongbe B Primary Care Provider LUISITO DONOVAN Attending Unavailable INGA JAMSE Referring Unavailable OLEGHE, EFEWONGBE Primary Care Unavailable LUISITO DONOVAN Attending Unavailable OLEGHE, EFEWONGBE Primary Care Unavailable LUISITO DONOVAN Referring Unavailable LUISITO DONOVAN Attending Unavailable OLEGHE, EFEWONGBE Primary Care Unavailable FELIX KNIGHT Referring Unavailable FELIX KNIGHT Attending Unavailable OLEGHE, EFEWONGBE Primary Care Unavailable Annita Elkins DO Primary Care Provider FREDDY HERRON OLEG Referring Vivi MERRICK Smart Attending Unavailable ANNITA ELKINS Primary Care Unavailable FREDDY HERRON Referring ANNITA Greene Primary Care Unavailable Allergies Allergy Classification Reported Allergen(s) Allergy Type Date of Onset Reaction(s) Facility (12 sources) Doxycycline; Translations: [DOXYCYCLINE] Drug Allergy 06-06-20 18 Nausea And Vomiting, Anxiety, Headache, Vomiting [place], [place] (5 sources) Latex; Translations: [LATEX] Propensity to adverse reactions to drug 12-10-19 16 Itching [place] (12 sources) levoFLOXacin; Translations: [LEVOFLOXACIN] Drug Allergy 09-04-19 12 Nausea And Vomiting, Other: See Comments, GI Upset [place] (8 sources) Prochlorperazine Drug Allergy 08-30-19 15 [place] (1 source) Sulfonamides (Antibiotic) Propensity to adverse reactions to drug 09-04-19 12 Nausea [place] Vomiting [place] (1 source) Other Propensity to adverse reactions 04-29-20 19 [place] (5 sources) Prochlorperazine Edisylate; Translations: [PROCHLORPERAZINE EDISYLATE] Propensity to adverse reactions to drug 08-30-19 15 Mental Status Change [place] (7 sources) Sulfonamides (Antibiotic) Drug Intolerance 09-04-19 12 Nausea And Vomiting [facility] (1 source) Amino Acids Drug Allergy [facility] Repository (1 source) Doxycycline Drug Allergy [facility] (1 source) Latex Drug allergy (disorder) [facility] (1 source) Penicillins Drug allergy (disorder) [facility] (1 source) Prochlorperazine Drug Allergy [facility] (2 sources) Sulfonamides (Antibiotic); Translations: [SULFA (SULFONAMIDE ANTIBIOTICS)] Drug allergy (disorder) 09-04-19 12 [facility] (1 source) Penicillin; Translations: [PENICILLIN] Drug Allergy 12-10-19 16 [facility] Other [facility] Medications Current Medications Medication Drug Class(es) Dates Sig (Normalized) Sig (Original) baclofen 10 mg oral tablet (11 sources) gamma-Aminobutyri c Acid-ergic Agonist Start: 01-14-2023 take 2 tablets by mouth four times daily baclofen (Lioresal) 10 MG tablet TAKE 2 TABLETS BY MOUTH 4 TIMES A DAY 30 DAYS 0 01/14/2023 Active Completed/Discontinued Medications Medication Drug Class(es) Dates Sig (Normalized) Sig (Original) acyclovir 400 mg oral tablet (10 sources) Herpesvirus Nucleoside Analog DNA Polymerase Inhibitor, Herpes Simplex Virus Nucleoside Analog DNA Polymerase Inhibitor, Herpes Zoster Virus Nucleoside Analog DNA Polymerase Inhibitor Start: 09-11-2023 take 1 tablet by mouth every twelve hours acyclovir (ZOVIRAX) 400 mg tablet Take 1 tablet by mouth every 12 hours. 0 09/11/2023 Active Problems Active Problems Problem Classification Problem Date Documented Da te Episodic/Chronic Esophageal disorders (3 sources) Gastroesophageal reflux disease; Translations: [Gastro-esophageal reflux disease without esophagitis] Onset: 8 12-02-2017 Chronic Genitourinary symptoms and ill-defined conditions (8 sources) Mixed urinary incontinence; Translations: [Incontinence] Onset: 9 04-07-2019 Chronic Multiple sclerosis (8 sources) Multiple sclerosis; Translations: [Multiple sclerosis] Onset: 6 01-28-2023 Chronic Osteoarthritis (1 source) Primary osteoarthritis, right shoulder; Translations: [PRIMARY OSTEOARTHRITIS RT SHOULDER] Onset: 3 Chronic Other connective tissue disease (3 sources) Spasticity; Translations: [Cramp and spasm] 02-18-2023 Episodic Other gastrointestinal disorders (3 sources) Irritable bowel syndrome; Translations: [Irritable bowel syndrome without diarrhea] Onset: 8 12-02-2017 Chronic Other screening for suspected conditions (not mental disorders or infectious disease) (3 sources) Radiology result abnormal; Translations: [Abnormal findings on diagnostic imaging of other specified body structures] Onset: 7 12-02-2017 Chronic Paralysis (6 sources) Spastic diplegia; 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] Onset: 3 01-28-2023 Chronic Prolapse of female genital organs (15 sources) Herniation of rectum into vagina; Translations: [Midline cystocele] Onset: 9 04-07-2019 Chronic Spondylosis; intervertebral disc disorders; other back problems (7 sources) Cervical radiculopathy; Translations: [Radiculopathy, cervical region] Onset: 4 10-08-2023 Episodic Unclassified (3 sources) New Patient; Translations: [New Patient] Onset: 3 Past or Other Problems Problem Classification Problem Date Documented Da te Episodic/Chronic Abdominal pain (3 sources) Left lower quadrant pain; Translations: [Left lower quadrant pain] Onset: 06-01-2017 12-02-2017 Episodic Cardiac dysrhythmias (3 sources) Bradycardia; Translations: [Bradycardia, unspecified] Onset: 11-05-2017 12-02-2017 Episodic Conditions associated with dizziness or vertigo (3 sources) Dizziness and giddiness; Translations: [Dizziness and giddiness] Onset: 10-29-2017 12-02-2017 Episodic Hemorrhoids (3 sources) Hemorrhoids; Translations: [Unspecified hemorrhoids] Onset: 04-19-2019 04-19-2019 Episodic Other aftercare (1 source) Encounter for other specified surgical aftercare; Translations: [ENC OTHER SPEC SURGICAL AFTERCARE] Onset: 03-24-2023 Episodic Other and unspecified benign neoplasm (3 sources) Adrenal adenoma; Translations: [Benign neoplasm of unspecified adrenal gland] Onset: 12-10-2015 12-10-2015 Episodic Other and unspecified benign neoplasm (3 sources) History of polyp of colon; Translations: [Personal history of colonic polyps] Onset: 12-02-2017 12-02-2017 Episodic Other connective tissue disease (3 sources) [...] [Cramp and spasm] Onset: 02-18-2023 Episodic Other gastrointestinal disorders (3 sources) Swelling; Translations: [Other intra-abdominal and pelvic swelling, mass and lump] Onset: 06-01-2017 12-02-2017 Episodic Other non-traumatic joint disorders (3 sources) Pain in right shoulder; Translations: [PAIN IN RIGHT SHOULDER] Onset: 03-19-2023 Episodic Other non-traumatic joint disorders (1 source) Stiffness of right shoulder, not elsewhere classified; Translations: [STIFFNESS RIGHT SHOULDER NEC] Onset: 03-24-2023 Episodic Other screening for suspected conditions (not mental disorders or infectious disease) (3 sources) Blood chemistry abnormal; Translations: [Other specified abnormal findings of blood chemistry] Onset: 09-03-2017 12-02-2017 Episodic Screening and history of mental health [...] Vital Sign Value Performing Clinician Alberta pablo 10-08-2023 10:18-0500 Body height 160 cm Merrick Maxwell MD Work Phone: [facility] 10-08-2023 10:18-0500 Body weight 102.8 kg Merrick Maxwell MD Work Phone: [facility] 10-08-2023 10:18-0500 Diastolic blood pressure 74 mm[Hg] Merrick Maxwell MD Work Phone: [facility] 10-08-2023 10:18-0500 Heart rate 59 /min Merrick Maxwell MD Work Phone: [facility] 10-08-2023 10:18-0500 Respiratory rate 16 /min Merrick Maxwell MD Work Phone: [facility] 10-08-2023 10:18-0500 SaO2% (BldA) [Mass fraction] 96 % Merrick Maxwell MD Work Phone: [facility] 10-08-2023 10:18-0500 Systolic blood pressure 146 mm[Hg] Merrick Maxwell MD Work Phone: [facility] 08-21-2023 07:38-0500 Body height 160 cm Felix Knight PLANNING OFFICIAL [employer] Work Phone: [facility] 08-21-2023 07:38-0500 Body mass index (BMI) [Ratio] 40.03 kg/m2 Felix Knight PLANNING OFFICIAL [employer] Work Phone: [facility] 08-21-2023 07:38-0500 Body temperature 98.1 [degF] Felix Knight PLANNING OFFICIAL [employer] Work Phone: [facility] [employer] 08-21-2023 07:38-0500 Body weight 102.51 kg Felix Knight PLANNING OFFICIAL [employer] Work Phone: [facility] [employer] 08-21-2023 07:38-0500 Diastolic blood pressure 62 mm[Hg] Felix Knight PLANNING OFFICIAL [employer] Work Phone: [facility] 08-21-2023 07:38-0500 Heart rate 81 /min Felix Knight PLANNING OFFICIAL [employer] Work Phone: [facility] 08-21-2023 07:38-0500 Systolic blood pressure 115 mm[Hg] Felix Knight PLANNING OFFICIAL - [employer] Work Phone: [facility] 05-21-2023 08:27-0400 Body temperature 97.59 [degF] Luisito Donovan MD Work Phone: [facility] 05-21-2023 08:27-0400 Diastolic blood pressure 73 mm[Hg] Luisito Donovan MD Work Phone: [facility] 05-21-2023 08:27-0400 Heart rate 50 /min Luisito Donovan MD Work Phone: [facility] 05-21-2023 08:27-0400 Systolic blood pressure 146 mm[Hg] Luisito Donovan MD Work Phone: [facility] 02-18-2023 09:42-0400 Body temperature 97.7 [degF] Luisito Donovan MD Work Phone: [facility] 02-18-2023 09:42-0400 Diastolic blood pressure 79 mm[Hg] Luisito Donovan MD Work Phone: [facility] 02-18-2023 09:42-0400 Heart rate 50 /min Luisito Donovan MD Work Phone: [facility] 02-18-2023 09:42-0400 Systolic blood pressure 140 mm[Hg] Luisito Donovan MD Work Phone: [facility] 01-27-2023 13:34-0400 Body mass index (BMI) [Ratio] 40.03 kg/m2 Luisito Donovan MD Work Phone: [facility] 01-27-2023 13:34-0400 Body temperature 98.6 [degF] Luisito Donovan MD Work Phone: [facility] 01-27-2023 13:34-0400 Body weight 102.51 kg Luisito Donovan MD Work Phone: [facility] 01-27-2023 13:34-0400 Diastolic blood pressure 75 mm[Hg] Luisito Donovan MD Work Phone: [facility] 01-27-2023 13:34-0400 Heart rate 54 /min Luisito Donovan MD Work Phone: [facility] 01-27-2023 13:34-0400 Systolic blood pressure 131 mm[Hg] Luisito Donovan MD Work Phone: [facility] 04-29-2019 15:21-0400 BMI (Body Mass Index) 38.79 kg/m2 [place], [place] 04-29-2019 15:21-0400 Body Temperature 97.81 [degF] [facility] [place] 04-29-2019 15:21-0400 Body weight 99.34 kg [facility] [place] 04-29-2019 15:21-0400 BP Diastolic 69 mm[Hg] [facility] [place] 04-29-2019 15:21-0400 BP Systolic 122 mm[Hg] [facility] 04-29-2019 15:21-0400 Height 160 cm [facility] 04-29-2019 15:21-0400 Pulse (Heart Rate) 50 /min [facility] Arroyo [facility], [place] 04-29-2019 15:21-0400 Pulse Oximetry 97 % [facility] [place] Encounters Encounter Date Encounter Type Care Provider Facility Start: 10-08-2023 End: 10-08-2023 Orders Only Merrick Grace MD Work Phone: [facility] Procedures Date Procedure Procedure Detail Performing Clinician Start: 04-27-2020 Mammography Luisito schroeder MD Work Phone: Start: 04-29-2019 Basic metabolic pane l calcium total Magi R Nia Work Phone: Start: 04-29-2019 Blood count complete automated Magi R Roscoe Work Phone: Start: 01-12-2018 Colonoscopy Merrick Maxwell MD Work Phone: Plan of Treatment Date Care Activity Detail Author Start: 2029 RSV Immunization aged 60 or older (1 - 1-dose 60+ series) RSV Immunization aged 60 or older (1 - 1-dose 60+ series) [facility] Start: 08-24-2024 Pneumococcal vaccination Pneumococcal Vaccine (3 of 3 - PPSV23 or PCV20) [facility] Start: 11-21-2023 End: 11-21-2023 Patient encounter procedure 11/21/2023 7:30 AM EDT Procedure Visit [facility] [address] [place] [address] Luisito Donovan MD [address] [facility] [place] [address] [facility] Start: 08-25-2023 Depression Assessment Depression Assessment [facility] Start: 08-20-2023 End: 08-20-2023 Patient encounter procedure 08/20/2023 7:30 AM EST Procedure Visit [facility] [address] [place] [address] [place] [id number] Luisito Donovan MD [address] [facility] [address] [place], [place] [id number] [facility] Start: 05-21-2023 End: 05-21-2023 Patient encounter procedure 05/21/2023 8:00 AM EDT Procedure Visit [facility] [address] [place] [address] [place] [address] Luisito Donovan MD [address] [facility] [place] [address] [facility] Start: 04-25-2023 COVID-19 Vaccine ( season) COVID-19 Vaccine ( season) [facility] Start: 04-25-2023 Influenza vaccination [facility] Start: 02-18-2023 End: 02-18-2023 Patient encounter procedure 02/18/2023 9:30 AM EDT Procedure Visit [facility] [address] [facility] [place] [id number] Luisito Donovan MD [address] [facility] [place] [address] [facility] Start: 04-29-2022 Diabetes Screening Diabetes Screening [facility] Start: 06-20-2021 COVID-19 Vaccine (3 - Booster for Moderna series) COVID-19 Vaccine (3 - Booster for Moderna series) [facility] Start: 06-20-2021 COVID-19 Vaccine (3 - Moderna series) COVID-19 Vaccine (3 - Moderna series) [facility] Start: 05-23-2021 Covid-19 Vaccine (3 - Moderna risk series) Covid-19 Vaccine (3 - Moderna risk series) [facility] Start: 04-27-2021 Screening for malignant neoplasm of breast Mammogram [facility] Start: 2019 Screening for malignant neoplasm of lung Lung Cancer Screening [facility] Start: 2019 Zoster Vaccines (1 of 2) Zoster Vaccines (1 of 2) [facility] Start: 05-04-2019 End: 05-04-2019 Appointment 05/04/2019 Appointment General Surgery Godwin Arroyo MD [address] [place] [address], [address] [place] [address] [facility] General Surgery Start: 04-25-2019 Influenza vaccination Flu vaccine (#1) [place] Start: 01-12-2019 Screening for malignant neoplasm of colon [facility] Start: 04-04-2018 DTaP/Tdap/Td vaccine (6 - Td) DTaP/Tdap/Td vaccine (6 - Td) [place] Start: 04-04-2018 DTaP/Tdap/Td Vaccines (6 - Td or Tdap) DTaP/Tdap/Td Vaccines (6 - Td or Tdap) [facility] Start: 04-04-2018 Urine microalbumin profile DTaP,Tdap,Td Vaccine (6 - Td or Tdap) [facility] Start: 2014 Lipid panel Lipid Screening [facility] Start: 2014 Screening for malignant neoplasm of colon [facility] Start: 05-14-2010 MMR Vaccines (1 of 1 - Standard series) MMR Vaccines (1 of 1 - Standard series) [facility] Start: 2009 Diabetes screen Diabetes screen [place] Start: 2009 Lipid screen Lipid screen [place] Start: 2009 Screening for malignant neoplasm of breast Mammogram Screening [facility] Start: 1999 Screening for malignant neoplasm of cervix HPV Testing [facility] Start: 1990 Screening for malignant neoplasm of cervix Pap Testing [facility] Start: 1988 Shingrix Vaccine (1 of 2) Shingrix Vaccine (1 of 2) [facility] Start: 1988 Urine screening for protein Diabetes: Urine Protein Screening [facility] Start: 1987 Hepatitis C screening Hepatitis C Screening [facility] Start: 1987 HIV screening HIV Screening [facility] Start: 1984 HIV screen HIV screen [place] Start: 1981 Depression Screening Depression Screening [facility] Start: 1979 Diabetic foot examination Diabetes: Foot Exam [facility] Start: 1979 Glaucoma screening Diabetes: Retinopathy Screening [facility] Start: 1979 Preventive dental service Diabetes: Dental Exam [facility] Start: 1975 Pneumococcal 0-64 years Vaccine (1 of 1 - PPSV23) Pneumococcal 0-64 years Vaccine (1 of 1 - PPSV23) [place] Start: 1969 Cyanocobalamin vitamin b-12 Vitamin B-12 [facility] Start: 1969 Diabetes: Celiac Disease Screening Diabetes: Celiac Disease Screening [facility] Start: 1969 Hemoglobin A1c measurement Diabetes: Hemoglobin A1C [facility] Start: 1969 HIV screening HIV Screening [facility] Start: 1969 Lipid panel Lipid Panel [facility] Start: 1969 Screening for malignant neoplasm of colon [facility] Start: 1969 Thyroid stimulating hormone measurement TSH Level [facility] EKG 12 Lead EKG 12 Lead ECG Routine 04/29/2019 4:31 PM EDT [place] XR CERV OTHER 4V AP/LAT/FLX/EXT XR CERV OTHER 4V AP/LAT/FLX/EXT Radiology Routine Cervical disc disorder with radiculopathy 10/08/2023 10:08 AM EST [facility] Work Phone: Immunizations Immunization Date Immunization Notes Care Provider Valarie johns 08-25-2016 influenza virus vacc ine, unspecified formulation Luisito Donovan MD Work Phone: [facility] Payers Date Payer Category Payer Unknown [id number] 2023 Unknown [id number] 2023 Private Health Insurance [facility] [id number] 2023-Present [address] [place] [address] Commercial [id number] 2016 Unknown [employer] [place] xxxxxxxxxxxx 2016-Present [address] [place] [address] xxxxxxxxxxxx [id number] 1970 Unknown [id number] 1970 Unknown [id number] 1969 Unknown [id number] 1959 Private Health Insurance [id number] 1959 Private Health Insurance [id number] Social History Date Type Detail Facility Start: 04-29-2019 Tobacco smoking stat [facility] Current every day smoker [place] Start: 08-25-1986 End: 05-25-2021 History of tobacco use Cigarette Smoker [place] Start: 04-29-2019 End: 10-08-2023 Cigarettes smoked current (pack per day) - Reported [place] Start: 04-29-2019 End: 10-08-2023 Alcohol intake Not Currently [place] Start: 1970 Sex Assigned At Not on file M [place] Start: 01-27-2023 End: 10-08-2023 Tobacco smoking status ARIS Ex-smoker [facility] Start: 08-25-1986 End: 05-25-2021 History of tobacco use Current smoker [facility] Start: 01-27-2023 End: 10-08-2023 Tobacco use and exposure Smokeless tobacco non-user [facility] Start: 01-27-2023 End: 08-21-2023 Alcohol intake Ex-drinker (finding) [facility] Start: 1970 Sex Assigned At Female [facility] Start: 01-26-2023 Gender identity Identifies as female gender (finding) [facility] Start: 01-26-2023 Sexual orientation Heterosexual (fin ding) [facility] Start: 01-17-2023 End: 02-18-2023 Exposure to SARS-CoV-2 (event) Not sure [facility] Start: 10-08-2023 Alcohol intake Current non-dr skid wrapper of alcohol (finding) [facility] National Score (1-10 0), lower number is lower risk 74 [facility] Medical Equipment Procedure Code Equipment Code Equipment Origin al Text Equipment Identifier Dates [id number] Start: 10-18-2017 Clinical Notes 01-27-2023 to 10-08-2023 Merrick Grace I, MD - 10/08/2023 10:00 AM Kimani Knight APRN [facility] - 08/21/2023 7:30 AM Pam Rosas MA - 08/21/2023 7:30 AM Kemal Donovan MD - 05/21/2023 8:00 AM EDT Note Date & Type Note Facility 10-08-2023 Note HNO ID: [id number] Author: MERRICK GRACE MD Service: ? Author Type: Physician Type: Progress Notes Filed: 10/08/2023 11:21 Note Text: NEUROSURGERY CONSULT NOTE Merrick Grace MD Chair, Clinical Neurosciences Director, Spinal Neurosurgery [facility] Date of visit: October 08, 2023 Patient Name: Ms.Kimberly Harper Crowder Date of : 1970 Current Age: [age] year old Sex: female MRN/E# [id number] Last Office Visit: Visit date not found Chief Complaint: Patient presents with: New Patient Past Medical/Surgical History: Sarika Crowder is a 53 year old female who is referred by Dr. Freddy Herron with the [facility] for neurosurgical evaluation of the cervical spine. The patient has a history of MS, DM, hypothyroidism, osteopenia and HTN. Surgical Risk Factors: Smoking status: Former, quit 3 years ago Alcohol use: Denies Anticoagulants/antiplatelets: No Diabetic: Yes, no recent hgbA1c BMI: 40.15 HISTORY OF PRESENT ILLNESS : The patient presents to the office today as a new patient with MRI and x-ray imaging of the cervical spine. She states that she underwent a right shoulder surgery in February of 2023 and had been participating in PT post operatively with onset of neck pain in April of 2023. She also noticed left hand numbness at that time. She states since that time she has been having neck pain with LUE symptoms including pain, numbness and tingling. She states her symptoms are intermittent and depend on the activity she is doing. Symptoms in the arm are in no specific distribution. She has baseline weakness and balance/gait issues that she attributes to her MS. Baseline hand difficulties. Does not feel she has had any acute progression. She presents for image review, evaluation and plan of care. PREVIOUS CONSERVATIVE TREATMENTS: Medrol Dose Jian Celebrex Baclofen Gabapentin PT/OT: @ [facility] in [place] Botox injections for spastic diplegia PREVIOUS SURGERY: No spine surgery PAIN EVALUATION 10/06/[id number] Pain Level: 6 Pain Location: Neck Description: Aching;Burning;Dull;Numbness;Radi ating;Sharp;Spasm Duration Amount of Time: 5.5 Duration Units: Months Intervention/Comfort measure: Medication;Reposition;Cold;Exerci se;Heat;Massage;Positioning Comments: Radiating from neck down left shoulder arm to hand left hand numb. At times its been excruciating. Dr Simona harmon did a pain injection that helped cut the pain but still there PAST MEDICAL HISTORY Diagnosis Date Aspiration pneumonia (HCC) Asthma Bradycardia Chronic gastritis Colon polyps Depression Diabetes (HCC) pre Elevated blood pressure Endometriosis Foot drop, right foot GERD (gastroesophageal reflux disease) H. pylori infection 2012 treated, stool sample confirmed cleared Hemorrhoids Hiatal hernia Hypothyroidism IBS (irritable bowel syndrome) Migraine Multiple sclerosis (HCC) PAST SURGICAL HISTORY Procedure Laterality Date COLONOSCOPY 06/17/2014 diverticulosis, multiple polyps, tubular adenomas and sessile serrated polyp COLONOSCOPY 01/12/2018 internal hemorrhoids EGD 2012 positive H Pylori EGD 12/30/2017 Small hiatal hernia.Chronic gastritis (Helicobacter pylori chronic minimally active gastritis.) LAPAROSCOPY SURG CHOLECYSTECTOMY 2013 Cholecystectomy, lap LAPS ABD PRTMANDOMENTUM DX W/WO SPEC BR/WA SPX Laparoscopy, Multiple PAST SURGICAL HISTORY OF [place] tooth extraction x 4 TONSILLECTOMY PRIMARY/SECONDARY Tonsillectomy TOTAL ABDOMINAL HYSTERECT W/WO RMVL TUBE OVARY Hysterectomy, DENIS FAMILY HISTORY Problem Relation Age of Onset Heart disease Maternal Grandmother Hypertension Maternal Grandmother Stroke Maternal Grandmother other (sudden cardiac ) Maternal Grandmother other (Crohn's disease) Sister ALLERGIES Allergen Reactions Compazine [Prochlor* Mental Status Change Other reaction(s): Dizzy/Vertigo, Dyspepsia Latex Itching Doxycycline Vomiting Levofloxacin Other: See Comments, GI Upset Other reaction(s): Dizzy/Vertigo, GI Upset, Other: See Comments Current Outpatient Medications Medication Sig Dispense Refill cladribine,multiple sclerosis, (MAVENCLAD, 10 TABLET PACK,) 10 mg tablet acyclovir (ZOVIRAX) 400 mg tablet Take 1 tablet by mouth every 12 hours. desvenlafaxine ER (PRISTIQ) 50 mg 24 hr tablet Take 1 tablet by mouth every afternoon. NUEDEXTA 20-10 mg capsule Take 1 capsule by mouth every 12 hours. fluticasone (FLONASE) 50 mcg/actuation nasal spray Fluticasone Propionate Active 1 SPRAY INTRANASAL DAILY November 18, 2018 1:22pm gabapentin (NEURONTIN) 100 mg capsule Take 100 mg by mouth three times a day. losartan (COZAAR) 50 mg tablet Take 1 tablet by mouth every afternoon. mirabegron (MYRBETRIQ) 50 mg Tb24 Take 1 tablet by mouth once daily. triamterene-hydroCHLOROthiazide (MAXZIDE-25) 37.5-25 mg per tablet Take 1 tablet by mouth every morni (more content not included)... [facility] 10-08-2023 History of Present illness Narrative Images from the original note were not included. NEUROSURGERY CONSULT NOTE Merrick Grace MD Chair, Clinical Neurosciences Director, Spinal Neurosurgery [facility] Date of visit: October 08, 2023 Patient Name: Ms.Kimberly Harper Crowder Date of : 1970 Current Age: [age] year old Sex: female MRN/E# [id number] Last Office Visit: Visit date not found Chief Complaint: Patient presents with: New Patient Past Medical/Surgical History: Sarika Crowder is a 53 year old female who is referred by Dr. Freddy Herron with the [facility] for neurosurgical evaluation of the cervical spine. The patient has a history of MS, DM, hypothyroidism, osteopenia and HTN. Surgical Risk Factors: Smoking status: Former, quit 3 years ago Alcohol use: Denies Anticoagulants/antiplatelets: No Diabetic: Yes, no recent hgbA1c BMI: 40.15 HISTORY OF PRESENT ILLNESS : The patient presents to the office today as a new patient with MRI and x-ray imaging of the cervical spine. She states that she underwent a right shoulder surgery in February of 2023 and had been participating in PT post operatively with onset of neck pain in April of 2023. She also noticed left hand numbness at that time. She states since that time she has been having neck pain with LUE symptoms including pain, numbness and tingling. She states her symptoms are intermittent and depend on the activity she is doing. Symptoms in the arm are in no specific distribution. She has baseline weakness and balance/gait issues that she attributes to her MS. Baseline hand difficulties. Does not feel she has had any acute progression. She presents for image review, evaluation and plan of care. PREVIOUS CONSERVATIVE TREATMENTS: Medrol Dose Jian Celebrex Baclofen Gabapentin [facility] Botox injections for spastic diplegia PREVIOUS SURGERY: No spine surgery PAIN EVALUATION 10/06/20232104 Pain Level: 6 Pain Location: Neck Description: Aching;Burning;Dull;Numbness;Radi ating;Sharp;Spasm Duration Amount of Time: 5.5 Duration Units: Months Intervention/Comfort measure: Medication;Reposition;Cold;Exerci se;Heat;Massage;Positioning Comments: Radiating from neck down left shoulder arm to hand left hand numb. At times its been excruciating. Dr Simona harmon did a pain injection that helped cut the pain but still there PAST MEDICAL HISTORY Diagnosis Date Aspiration pneumonia (HCC) Asthma Bradycardia Chronic gastritis Colon polyps Depression Diabetes (HCC) pre Elevated blood pressure Endometriosis Foot drop, right foot GERD (gastroesophageal reflux disease) H. pylori infection 2012 treated, stool sample confirmed cleared Hemorrhoids Hiatal hernia Hypothyroidism IBS (irritable bowel syndrome) Migraine Multiple sclerosis (HCC) PAST SURGICAL HISTORY Procedure Laterality Date COLONOSCOPY 06/17/2014 diverticulosis, multiple polyps, tubular adenomas and sessile serrated polyp COLONOSCOPY 01/12/2018 internal hemorrhoids EGD 2012 positive H Pylori EGD 12/30/2017 Small hiatal hernia.Chronic gastritis (Helicobacter pylori chronic minimally active gastritis.) LAPAROSCOPY SURG CHOLECYSTECTOMY 2014 Cholecystectomy, lap LAPS ABD PRTM&OMENTUM DX W/WO SPEC BR/WA SPX Laparoscopy, Multiple PAST SURGICAL HISTORY OF [place] tooth extraction x 4 TONSILLECTOMY PRIMARY/SECONDARY <AGE 11 Tonsillectomy TOTAL ABDOMINAL HYSTERECT W/WO RMVL TUBE OVARY Hysterectomy, DENIS FAMILY HISTORY Problem Relation Age of Onset Heart disease Maternal Grandmother Hypertension Maternal Grandmother Stroke Maternal Grandmother other (sudden cardiac ) Maternal Grandmother other (Crohn's disease) Sister ALLERGIES Allergen Reactions Compazine [Prochlor* Mental Status Change Other reaction(s): Dizzy/Vertigo, Dyspepsia Latex Itching Doxycycline Vomiting Levofloxacin Other: See Comments, GI Upset Other reaction(s): Dizzy/Vertigo, GI Upset, Other: See Comments Current Outpatient Medications Medication Sig Dispense Refill cladribine,multiple sclerosis, (MAVENCLAD, 10 TABLET PACK,) 10 mg tablet acyclovir (ZOVIRAX) 400 mg tablet Take 1 tablet by mouth every 12 hours. desvenlafaxine ER (PRISTIQ) 50 mg 24 hr tablet Take 1 tablet by mouth every afternoon. NUEDEXTA 20-10 mg capsule Take 1 capsule by mouth every 12 hours. fluticasone (FLONASE) 50 mcg/actuation nasal spray Fluticasone Propionate Active 1 SPRAY INTRANASAL DAILY November 18, 2018 1:22pm gabapentin (NEURONTIN) 100 mg capsule Take 100 mg by mouth three times a day. losartan (COZAAR) 50 mg tablet Take 1 tablet by mouth every afternoon. mirabegron (MYRBETRIQ) 50 mg Tb24 Take 1 tablet by mouth once daily. triamterene-hydroCHLOROthiazide (MAXZIDE-25) 37.5-25 mg per tablet Take 1 tablet by mouth every morning. buPROPion XL (WELLBUTRIN XL) 150 mg 24 hr tablet liraglutide (VICTOZA) 0.6 mg/ 0.1 ml subcutaneous pen injector inject 1.8 milligram subcutaneously daily albuterol HFA (PROVENTIL HFA, VENTOLIN HFA) 90 mcg/actuation inhaler albuterol 90 mcg/actuation aerosol inhaler albuterol 90 mcg/actuation aerosol inhaler 1 PUFF INHALATION NEEDED PRN For Sob &/Or Wheezing September 19, 2017 Active 09-19-2017 [facility] ([id number]) cyanocobalamin, vitamin B-12, 1,000 mcg/mL kit Inject as directed once a week. hydrocortisone 2.5 % ointment miconazole (MONISTAT-DERM,ROSEMARY) 2 % cream As directed. nystatin (MYCOSTATIN) powder Apply to affected area twice daily. 0 folic acid 800 mcg tablet every day baclofen (LIORESAL) 10 mg tablet VITAMIN D-3 2,000 unit cap 5,000 Units. esterified estrogens-methylTESTOSTERone (ESTRATEST HS) 0.625-1.25 mg per tablet modafinil (PROVIGIL) 200 mg tablet NOVOFINE 32 32 gauge x 1/4 ndle levothyroxine (SYNTHROID) 75 mcg tablet Take 75 mcg by mouth daily before breakfast. No current facility-administered medications for this visit. OBJECTIVE: BP 146/74 Pulse 59 Resp 16 Ht 5' 3 (1.60m) Wt 226 lb 10.1 oz (102.8kg) SpO2 96% BMI 40.16 kg/(m^2). PHYSICAL EXAM: Mental State : Alert, memory function unremarkable. Attention span and concentration normal for patient's age. Speech normal, no receptive or expressive speech deficit. Recent and remote memory normal. Orientation : Oriented to person, place and time. Cranial Nerves : Grossly intact. Sensory: Normal Sensation in upper and lower extremities and trunk to touch and noxious stimuli. Motor: Normal muscle tone and bulk. No tremor or uncontrollable movements. No spasticity or tremor. Gait and Station: Casual gait is normal including stance, stride, and arm swing. Pulmonary: Lungs without cough, audible wheeze. Respirations unlabored. Cardiac: Regular rate and rhythm. No murmer, gallop or rub. STRENGTH: Upper Extremity Strength Exam Right Left Elbow Flexion 5/5 5/5 Elbow Extension 5/5 5/5 Finger Flexion 5/5 5/5 Finger Extension 5/5 5/5 Finger Abduction 5/5 5/5 Lower Extremity Strength Exam Right Left Hip Flexion 5/5 5/5 Knee Flexion 5/5 5/5 Knee Extension 5/5 5/5 Dorsiflexion 5/5 5/5 Plantarflexion 5/5 5/5 Reflexes Right Left Biceps C5-C6 +3 +2 Triceps C7-C8 +3 +2 Wrist C5-6 +2 +2 Patellar L3-4 +2 +2 Achilles L5-S1 +2 +2 Pathologic Reflexes Right Left Bowman's Positive Negative Clonus Negative Negative Data Review IMAGING STUDIES: In clinic today reviewed an MRI taken the patient's cervical spine as well as x-rays. On MRI cervical imaging the patient has loss of normal cervical lordosis. Evidence of multilevel degeneration that looks worse at see 5 6 and 6 7. At C5-6 there is a broad-based disc bulge eccentric to the right causing what appears to significant foraminal stenosis at that level. At C6-7 there is a disc herniation causing obliteration of the foramina at that level on the left. Patient also had flexion-extension x-rays which show good alignment with no evidence of subluxation. Assessment & Plan: In summary this lady presents with left-sided shoulder pain going on for about a year. This is on a background of MS. Reviewing her imaging studies there is evidence of disc degeneration at C5-6 with associated disc bulge eccentric to the right. That has been there for some time. Reviewing imaging from 2019 there was a hint of it even back then. It has become more pronounced with time. That said she does have a new finding on her most recent MRI. There is evidence of a disc herniation at C6-7 on the left side her symptomatic side. It was not reported by the radiologist. There is definitive foraminal stenosis there is results. I suspect is the cause of her symptoms on the left.We discussed different treatment options here including physical therapy with traction to help alleviate the pressure on the nerve root, transforaminal injection at C6-7 as opposed to C5-6 and that but neither of those helps 1 could consider surgical intervention. She would need a single level ACDF at 2 help alleviate the pressure on the nerve root. That said I am concerned about her C5-6 disc which clearly shows evidence of degeneration with foraminal stenosis on the right. She is not symptomatic from this currently. Question whether to incorporate into the construct given the propensity of adjacent segment disease in the setting. A CT scan might help clarify the chronicity here. She would like to try the nonsurgical interventions first and hopefully get good results there. I concur wholeheartedly. I gave her prescription for physical therapy to include traction. She will return to her own pain management physician to tell him about the additional finding. She will follow-up with me sometime in the summertime if her symptoms persist and she wants to revisit potential surgery in the fall. Certainly if symptoms worsen we can regroup before then. The following portions of the patient's history were reviewed, confirmed, and updated as necessary: allergies, current medications, past family history, past medical history, past social history, past surgical history, problem list, HPI, and ROS obtained by others. Some elements may be copied from a previous office note and have been reviewed/updated where appropriate. All portions reflect current medical decision making from today. The clinical and radiographic findings as well as the risks, benefits and alternatives of treatment have been reviewed in detail with the patient. Advised to call the office if symptoms worsen or new symptoms develop. Patient expressed understanding and is in agreement with plan. Merrick Grace MD Chair, Clinical Neurosciences Director, Spinal Neurosurgery [facility] This note was partially generated using [employer] voice recognition system, and there may be some incorrect words, spellings, and punctuation that were not noted in checking the note before saving. documented in this encounter [facility] 08-21-2023 Note DEPARTMENT OF NEUROL OGY BOTOX PROCEDURE NOTE FOR SPASTICITY Patient: Sarika Crowder : 1970 Diagnosis: Spasticity [R25.2] Procedure: Botox [...] the same doses patient had at the [facility]. The patient reports improvement in spasticity following Botox injections. Patient will return to the neurology clinic in 3 months for Botox injections, sooner if needed. [x] Pt tolerated procedure well. Pt advised to avoid exercise or strenuous physical activity for 24 hours. Post treatment expectations reviewed in detail. PALOMO Juan CNP [facility] 08-21-2023 History of Present illness Narrative DEPARTMENT OF NEUROLOGY BOTOX PROCEDURE NOTE FOR SPASTICITY Patient: Sarika Crowder : 1970 Diagnosis: Spasticity [R25.2] Procedure: Botox [...] the same doses patient had at the [facility]. The patient reports improvement in spasticity following [...] By BRANDON Ordering Provider: Felix Knight NP [facility]:[id number] x3 Lot#: [id number] Trimmer Meat: Allergan Patient Supplied?: No, buy and bill documented in this encounter [facility] 05-21-2023 Note DEPARTMENT OF NEUROL OGY BOTOX PROCEDURE NOTE FOR SPASTICITY Patient: Sarika Crowder : 1970 Diagnosis: Spasticity [R25.2] Procedure: Botox [...] the same doses patient had at the [facility]. Patient will return to the neurology clinic in 3 months at that time we will arrange for patient injections in the bilateral lower extremities. Thank you [x] Pt tolerated procedure well. Pt advised to avoid exercise or strenuous physical activity for 24 hours. Post treatment expectations reviewed in detail. LUISITO DONOVAN MD [facility] 05-21-2023 History of Present illness Narrative DEPARTMENT OF NEUROLOGY BOTOX PROCEDURE NOTE FOR SPASTICITY Patient: Sarika Crowder : 1970 Diagnosis: Spasticity [R25.2] Procedure: Botox [...] the same doses patient had at the [facility]. Patient will return to the neurology clinic [...] MD Ordering Provider: LUISITO DONOVAN MD ND: [id number], [id number] Lot#: [id number] Trimmer Meat: Allergan Patient Supplied?: No documented in this encounter [facility] 02-18-2023 Note DEPARTMENT OF NEUROL OGY BOTOX PROCEDURE NOTE FOR HEADACHE Date: 02/18/23 Patient: Sarika Crowder : 1970 Diagnosis: Spasticity [R25.2] Procedure: Botox [...] expectations reviewed in detail. LUISITO DONOVAN MD [facility] 02-18-2023 Note DEPARTMENT OF NEUROL OGY BOTOX PROCEDURE NOTE FOR SPASTICITY Date:02/19/23 Patient: Sarika Crowder : 1970 Diagnosis: Spasticity [R25.2] Procedure: Botox [...] following the same doses patient have a [facility]. Patient will return to the neurology clinic in 3 months at that time we will arrange if patient bilateral lower extremities. Thank you [x] Pt tolerated procedure well. Pt advised to avoid exercise or strenuous physical activity for 24 hours. Post treatment expectations reviewed in detail. LUISITO DONOVAN MD [facility] 02-18-2023 History of Present illness Narrative Administrations This Visit onabotulinumtoxin A (BOTOX) injection 200 Units Admin Date 02/18/23 Action Given Dose 200 Units Route IntraMUSCular Site Other Administered By LUISITO DONOVAN MD Ordering Provider: LUISITO DONOVAN MD [facility]: [id number] x3 Lot#: [id number] Trimmer Meat: Allergan Patient Supplied?: No DEPARTMENT OF NEUROLOGY BOTOX PROCEDURE NOTE FOR HEADACHE Date: 02/18/23 Patient: Sarika Crowder : 1970 Diagnosis: Spasticity [R25.2] Procedure: Botox [...] LUISITO DONOVAN MD documented in this encounter [facility] 02-18-2023 History of Present illness Narrative Administrations This Visit onabotulinumtoxin A (BOTOX) injection 200 Units Admin Date 02/18/23 Action Given Dose 200 Units Route IntraMUSCular Site Other Administered By LUISITO DONOVAN MD Ordering Provider: LUISITO DONOVAN MD [facility]: [id number] x3 Lot#: [id number] Trimmer Meat: Allergan Patient Supplied?: No DEPARTMENT OF NEUROLOGY BOTOX PROCEDURE NOTE FOR HEADACHE Date: 02/18/23 Patient: Sarika Crowder : 1970 Diagnosis: Spasticity [R25.2] Procedure: Botox [...] BOTOX PROCEDURE NOTE FOR SPASTICITY Date:02/19/23 Patient: Sarika Crowder : 1970 Diagnosis: Spasticity [R25.2] Procedure: Botox [...] following the same doses patient have a [facility]. Patient will return to the neurology clinic in 3 months at that time we will arrange if patient bilateral lower extremities. Thank you [x] Pt tolerated procedure well. Pt advised to avoid exercise or strenuous physical activity for 24 hours. Post treatment expectations reviewed in detail. LUISITO DONOVAN MD documented in this encounter [facility] 01-27-2023 History of Present illness Narrative Department [...] Spastic diplegia (CMS/HCC) (HCC) 2. Multiple sclerosis ([facility]) Plan: We are going to perform Botox injections into both lower extremities following the same doses patient was receiving in [facility]. Patient will require 300 units of Botox. The injection will be performed as follow: Biceps femoris 25 , 25, 50, right Biceps femoris 25,25, left Flexor digitorum longus 75 right Flexor hallucis brevis 50 units. 300 units botox, spasticity LUISITO DONOVAN MD documented in this encounter [facility] documented [facility] this [facility]* Diagnosis Spasticity- Primary Abnormal involuntary movements [facility] Diagnosis Spasticity- Primary Abnormal involuntary movements [facility]* Diagnosis Spastic diplegia (CMS/HCC) (HCC)- Primary Unspecified infantile cerebral palsy documented in this encounter [facility]* Diagnosis Spastic diplegia (CMS/HCC) (HCC)- Primary Unspecified infantile cerebral palsy Multiple sclerosis ([facility]) Multiple sclerosis [facility]* Diagnosis Radiculopathy, cervical region- Primary Brachial neuritis or radiculitis nos documented in this encounter [facility] note* Diagnosis Spinal stenosis of cervical region- Primary Spinal stenosis in cervical region [facility] Diagnosis Cervical disc disorder with radiculopathy Brachial neuritis or radiculitis nos [facility]* Diagnostic Procedure Only (Routine) - Closed Specialty Diagnoses / Procedures Referred By Rohan t Referred To Contact XR IMAGING Diagnoses Cervical disc disorder with radiculopathy Procedures XR CERV OTHER 4V AP/LAT/FLX/EXT RADEX SPINE CERVICAL 4 OR 5 VIEWS Merrick Grace I, MD [address] [place] [address] [place] [address] Referral ID Status Reason Start Date Expiration Date V isits Requested Visits Authorized [id number] Closed Auto-Generate d Referral 09/16/2023 10/15/2024 1 1 [facility] Summary Purpose Family History No Family History Records FoundNo Family History Records FoundNo Family History Records FoundNo Family History Records FoundNo Family History Records Found Advance Directives No Advanced Directives Records FoundDocuments on File Type Date Recorded Patient Air Support Control Officer Expl anation Advance Directives and Living Will Power of Oliver Filter Operator Discharge Instructions * Instructions* Kenzie Hernández RN - 04/29/2019 Shower with an antibacterial soap such as Dial or Safeguard. Please bring your [facility] Surgical Information folder on the day of [...] Day Surgery You may use the free outboard motor assembler parking at the main entrance on [address], or the free parking in the [facility] parking deck * Attachments The following attachments cannot be sent through Care Everywhere. * Pelvic Prolapse: Pre-op (Danish) * Cystoscopy: Pre-op (Danish) documented in this encounter History of Present Illness * Kenzie Hernández RN - 04/29/2019 4:16 PM EDT Surgery scheduling notified of Latex allergy. documented in this encounter Reason for Referral Specialty Diagnoses / Procedures Referred By Contac t Referred To Contact Diagnoses Spasticity Luisito Donovan MD [address] [place] [address] Referral ID Status Reason Start Date Expiration Date V isits Requested Visits Authorized [id number] Pending Review 02/18/2023 08/17/2023 1 1 Specialty Diagnoses / Procedures Referred By Contac t Referred To Contact Diagnoses Spastic diplegia (CMS/HCC) (HCC) Felix Knight APRN - DAR[place]AN [address] [place] [address] Referral ID Status Reason Start Date Expiration Date V isits Requested Visits Authorized [id number] Pending Review 05/21/2023 11/17/2023 1 1 Referral ID Status Reason Start Date Expiration Date V isits Requested Visits Authorized [id number] Pending Review 08/21/2023 08/15/2024 1 1 Specialty Diagnoses / Procedures Referred By Contac t Referred To Contact [facility] Diagnoses Radiculopathy, cervical region Procedures CONSULT TO PHYSICAL THERAPY PHYSICAL THERAPY EVALUATION HIGH COMPLEX 45 MINS Merrick Grace I, MD [address] [place] [address] [facility] [address] [place] [address] Referral ID Status Reason Start Date Expiration Date Visits Requested Visits Authorized [id number] Pending Review Auto-Generat ed Referral 10/08/2023 10/07/2024 1 1 Additional Source Comments INFORMATION SOURCE (unrecogn ized section and content) DATE CREATED AUTHOR AUTHOR'S ORGANIZ ATION 05/23/2019 [facility] DATE CREATED AUTHOR AUTHOR'S ORGANIZ ATION 08/17/2023 [facility] DATE CREATED AUTHOR AUTHOR'S ORGANIZ ATION 08/22/2023 [facility] DATE CREATED AUTHOR AUTHOR'S ORGANIZ ATION 10/10/2023 [facility] Reason for Visit (unrecogniz ed section and content) Specialty Diagnoses / Procedures Referred By Contac t Referred To Contact Diagnoses Spastic diplegia (CMS/HCC) (HCC) Felix Knight, PALOMO - [employer] [address] [place] [address] Referral ID Status Reason Start Date Expiration Date V isits Requested Visits Authorized [id number] Pending Review 08/21/2023 08/15/2024 1 1 Reason Comments New Patient Discuss botox inject ions spasticity in b/l legs Specialty Diagnoses / Procedures Referred By Contac t Referred To Contact Neurology Diagnoses Multiple sclerosis (HCC) Procedures [place] OFFICE/OUTPATIENT NEW MODERATE MDM 45-59 MINUTES Inga James [address] [place] [place] [address] Luisito Donovan MD [address] [facility] [place] [address] Referral ID Status Reason Start Date Expiration Date V isits Requested Visits Authorized [id number] Pending Review 12/06/2022 12/06/2023 1 1 Reason Comments Procedure Botox- Spasticity Specialty Diagnoses / Procedures Referred By Contac t Referred To Contact Diagnoses Spasticity Luisito Donovan MD [address] [facility] [place] [address] Referral ID Status Reason Start Date Expiration Date V isits Requested Visits Authorized [id number] Pending Review 02/18/2023 08/17/2023 1 1 Reason Onset Date Comments Med Refill 02/18/2023 Referral ID Status Reason Start Date Expiration Date V isits Requested Visits Authorized [id number] Pending Review 05/21/2023 11/17/2023 1 1 Reason Comments New Patient Care Teams (unrecognized sec tion and content) Property Management Assistant Relationship Specialty Start Date End Date Antonieta Wube B [address] [place] [address] PCP - General 04/06/19 Property Management Assistant Relationship Specialty Start Date End Date Antonieta Wube B [address] [place] [address] PCP - General 04/06/19 Property Management Assistant Relationship Specialty Start Date End Date Antonieta Wube B [address] [place] [address] PCP - General 04/06/19 Property Management Assistant Relationship Specialty Start Date End Date Antonieta Wube B [address] [place] [address] PCP - General Internal Medicine 05/21/23 Property Management Assistant Relationship Specialty Start Date End Date Antonieta Wube B [address] [place] [address] PCP - General Internal Medicine 05/21/23 Property Management Assistant Relationship Specialty Start Date End Date Annita Elkins DO PCP - General Family Medicine 04/30/17 Property Management Assistant Relationship Specialty Start Date End Date Annita Elkins DO PCP - General Family Medicine 04/30/17 Property Management Assistant Relationship Specialty Start Date End Date Annita Elkins DO PCP - General Family Medicine 04/30/17 Source Comments (unrecognize d section and content) In the event this informatio n is protected by the Federal Confidentiality of Alcohol and Drug Abuse Patient Records regulations: The Federal rules restrict any use of the information to criminally investigate or prosecute any alcohol or drug abuse patient.[facility] the event this information is protected by the Federal Confidentiality of Alcohol and Drug Abuse Patient Records regulations: The Federal rules restrict any use of the information to criminally investigate or prosecute any alcohol or drug abuse patient.[facility] the event this information is protected by the Federal Confidentiality of Alcohol and Drug Abuse Patient Records regulations: The Federal rules restrict any use of the information to criminally investigate or prosecute any alcohol or drug abuse patient.[facility] FOR RECORDS PERTAINING TO PATIENTS WHO ARE [...] BE BASED ON THE PRIMARY CLINICAL RECORDS. [facility] [employer] [facility]. provides no warranty or guarantee of the accuracy or completeness of information in this document.
--- NOTE | 2023-10-20 06:50 | MRI_ITS ---
STUDY: MRI BRAIN WITH AND WITHOUT CONTRAST REASON FOR EXAM: Female, 53 years old. Syncope. Multiple Sclerosis TECHNIQUE: Standardized multiplanar fat and water weighted pulse sequences were obtained. IV 20ml clariscan was administered for the contrast portion of the examination. COMPARISON: August 07, 2023 FINDINGS: Normal size of the ventricles and extra-axial spaces for the patient''s age. There are a few white matter lesions bilaterally several of which have the appearance of Sharma''s fingers consistent with demyelinating plaques of multiple sclerosis. Normal bilateral basal ganglia. Normal thalami. There is no extra-axial fluid accumulation. Normal flow voids within the major intracranial circulation suggesting patency by spin echo criteria. Normal venous enhancement. There is no enhancing intra-axial or extra-axial abnormality. Normal sella turcica, pituitary gland, infundibular stalk, optic chiasm and hypothalamus. Normal tectal plate and pineal gland. Normal midbrain, blas and medulla. Normal cerebellum. Normal basal cisterns. Normal bilateral temporal bones. Normal bilateral internal auditory canals. No demonstrated orbital abnormality, within the constraints of a routine brain study. Normal visualized paranasal sinuses. Normal calvarium and skull base. Normal visualized soft tissue structures. Normal visualized upper cervical spine. The number of plaques are stable since previous exam and there is no enhancement to suggest acute demyelination. MRI/Brain W/WO Contrast IMPRESSION: Findings consistent with known multiple sclerosis stable since previous study No other significant abnormality. Electronically Signed: Ben Menard MD at 17:02 EST ,
== END | disposition home or self-care (01) ==
PROVIDERS: PCP Internal Medicine; Referring Provider Internal Medicine; Visit Provider Internal Medicine
DX: R55 Syncope and collapse (principal); G35 Multiple sclerosis
CPT/HCPCS: 70553; A9575

== ENCOUNTER → 2023-10-25 | Outpatient (CLI) | payer OTHER, SELFPAY ==
[2023-10-25 12:26] LABS: T4 Free Direct 1.13 ng/dL (0.76-1.46)
[2023-10-27 08:32] LABS: Vitamin D,25 Hydroxy 53.6 ng/mL
== END | disposition home or self-care (01) ==
LOC: LAB 11:05
PROVIDERS: PCP Internal Medicine; Referring Provider Internal Medicine Endocrinology, Diabetes & Metabolism; Visit Provider Internal Medicine Endocrinology, Diabetes & Metabolism
DX: E03.9 Hypothyroidism, unspecified (principal); G35 Multiple sclerosis; E11.65 Type 2 diabetes mellitus with hyperglycemia; E11.22 Type 2 diabetes mellitus with diabetic chronic kidney disease; E27.8 Other specified disorders of adrenal gland; N18.9 Chronic kidney disease, unspecified
CPT/HCPCS: 36415; 82306; 84439; 84443

== ENCOUNTER → 2023-11-13 | Outpatient (CLI) | payer OTHER, SELFPAY | END | disposition home or self-care (01) | LOC: PSN 07:11 | PROVIDERS: PCP Internal Medicine; Referring Provider Internal Medicine; Visit Provider Internal Medicine | DX: R55 Syncope and collapse (principal) | CPT/HCPCS: 93225; 93226 ==

== ENCOUNTER → 2023-11-24 | Outpatient (CLI) | payer OTHER, SELFPAY ==
--- NOTE | 2023-11-24 12:57 | US_ITS ---
PROCEDURE: RENAL ULTRASOUND - COMPLETE REASON FOR EXAM: Female, 53 years old. Chronic kidney disease stage III TECHNIQUE: Ultrasound evaluation of the bilateral kidneys was performed with real-time ultrasonography and static grayscale imaging. COMPARISON: CT scan of the abdomen and pelvis of 01/28/2022. FINDINGS: RIGHT KIDNEY: Normal location of the right kidney which is normal in size. The right kidney measures 10.5 x 5.5 x 4.5 cm. There is a normal cortex of the right kidney. The renal cortex measures 1.4 cm. There is no right renal mass or cyst. There are no right renal calculi. There is no right hydronephrosis. DISTAL RIGHT URETER: There is non-visualization of the distal right ureter. There is no demonstrated right ureterovesical junction calculus. There is no demonstrated right ureteral jet. LEFT KIDNEY: Normal location of the left kidney which is normal in size. The left kidney measures 10.4 x 4.6 x 5.2 cm. There is a normal cortex of the left kidney. The renal cortex measures 1.2 cm. There is a mass near the upper pole of the left kidney consistent with the previously seen left adrenal gland mass measuring about 2.7 x 2.4 x 2.1 cm. There are no left renal calculi. There is no left hydronephrosis. DISTAL LEFT URETER: There is non-visualization of the distal left ureter. There is no demonstrated left ureterovesical junction calculus. There is no demonstrated left ureteral jet. BLADDER: The distended urinary bladder has a volume of 410 ml. There is a normal wall thickness of the distended urinary bladder. There is no demonstrated mass within the urinary bladder. There is no demonstrated bladder calculi. US/Kidney and Bladder IMPRESSION: 1. Normal ultrasound examination of the bilateral kidneys and urinary bladder. 2. Left adrenal mass unchanged. Electronically Signed: Matti Rodriguez MD at 15:14 EDT ,
== END | disposition home or self-care (01) ==
LOC: US 12:57
PROVIDERS: PCP Internal Medicine; Referring Provider Internal Medicine Nephrology; Visit Provider Internal Medicine Nephrology
DX: N18.31 Chronic kidney disease, stage 3a (principal)
CPT/HCPCS: 76770

== ENCOUNTER → 2023-12-12 | Outpatient (CLI) | payer OTHER, SELFPAY ==
[2023-12-12 12:19] LABS: Absolute Lymphocyte Count 1.15 X10^3/uL (0.83-4.51); Absolute Neutrophil Count 3.3 X10^3/uL (2.0-7.7); Basophil# 0.05 X10^3/uL; Eosinophil# 0.07 X10^3/uL; Eosinophils% 1.4 % (0-5); Hematocrit 41.1 % (37-47); Hemoglobin 13.5 g/dL (12.0-15.0); Lymphocyte # 1.15 X10^3/ul (0.83-4.51); Lymphocyte % 23.2 % (19-41); Mean Corp Hgb Conc 32.8 g/dL (32-36); Mean Corpuscular Hgb 33.3 pg (27.0-32.0); Mean Corpuscular Volume 101.5 fL (81-99); Mean Platelet Vol. 8.9 fl (6.2-12.0); Monocyte# 0.38 X10^3/uL; Monocyte% 7.7 % (0-10); NRBC Flagged by Analyzer 0 % (0-5); Neutrophil # 3.29 X10^3/uL (2.7-7.7); Neutrophil % 66.3 % (47-70); Platelet Count 276 K/mm3 (150-450); RBC Distribution Width CV 12.9 % (11.6-14.6); RBC Distribution Width SD 48.1 fl (35.1-43.9); Red Blood Count 4.05 M/mm3 (4.2-5.4)
[2023-12-12 12:32] LABS: AST(SGOT) 19 U/L (15-37); Alanine Aminotransfer ALT/SGPT 23 U/L (13-56); Albumin, Serum 3.6 g/dL (3.2-5.0); Alkaline Phosphatase 66 U/L (45-117); Anion Gap 6 (5-15); BUN 20 mg/dL (7-18); BUN/Creat Ratio 13.9 RATIO (10-20); Calcium,Total 9.6 mg/dL (8.5-10.1); Chloride 105 mmol/L (98-107); Creatinine, Serum 1.44 mg/dL (0.55-1.02); EST Glomerular Filtration Rate 40 mL/min (>60); Est Glom Filt Rate - Afr Amer 49 mL/min (>60); Globulin 3.6 g/dL (2.2-4.2); Glucose 109 mg/dL (74-106); Protein, Total 7.2 g/dL (6.4-8.2); Sodium Level 137 mmol/L (136-145)
== END | disposition home or self-care (01) ==
LOC: BIMLAB 08:46
PROVIDERS: PCP Internal Medicine; Referring Provider Internal Medicine; Visit Provider Internal Medicine
DX: Z00.00 Encounter for general adult medical examination without abnormal findings (principal)
CPT/HCPCS: 36415; 80053; 85025

== ENCOUNTER → 2023-12-31 | Outpatient (CLI) | payer OTHER, SELFPAY ==
[2023-12-31 08:42] LABS: Albumin, Serum 3.7 g/dL (3.2-5.0); BUN 24 mg/dL (7-18); BUN/Creat Ratio 14.2 RATIO (10-20); Calcium,Total 9.3 mg/dL (8.5-10.1); Chloride 102 mmol/L (98-107); Creatinine, Serum 1.69 mg/dL (0.55-1.02); EST Glomerular Filtration Rate 34 mL/min (>60); Est Glom Filt Rate - Afr Amer 41 mL/min (>60); Glucose 127 mg/dL (74-106); Phosphorus 2.5 mg/dL (2.5-4.9); Potassium 4.1 mmol/L (3.5-5.1); Sodium Level 134 mmol/L (136-145)
[2023-12-31 10:03] LABS: Protein, Urine (Random) 12.8 mg/dL (<11.9); Protein:Creat Ratio 64 mg/g CRE (0-200)
[2024-01-01 13:08] LABS: Anti-dsDNA Ab <1 IU/mL (0-9)
== END | disposition home or self-care (01) ==
PROVIDERS: PCP Internal Medicine; Referring Provider Internal Medicine Nephrology; Visit Provider Internal Medicine Nephrology
DX: I12.9 Hypertensive chronic kidney disease with stage 1 through stage 4 chronic kidney disease, or unspecified chronic kidney disease (principal); N18.31 Chronic kidney disease, stage 3a
CPT/HCPCS: 36415; 80069; 82088; 82570; 84156; 84244; 86225

== ENCOUNTER → 2024-01-14 | Outpatient (CLI) | payer OTHER, SELFPAY ==
--- NOTE | 2024-01-14 11:23 | RAD_ITS ---
STUDY: X-RAY - LEFT WRIST REASON FOR EXAM: Female, 53 years old. Injury. TECHNIQUE: 3 views of the left wrist were obtained. COMPARISON: None. FINDINGS: There is a 4 mm well ossified structure adjacent to the distal ulnar styloid, compatible with an old avulsion fracture. Normal visualized distal radius. Normal radiocarpal articulation. Normal distal radioulnar articulation. Normal carpal bones. Normal carpal articulations. Normal carpometacarpal articulation of the thumb. Normal second through fifth carpometacarpal articulations. Normal visualized metacarpal bones. The soft tissue structures are unremarkable. There is no demonstrated acute fracture. RAD/Wrist min 3 Views IMPRESSION: 4 mm well ossified structure adjacent to the distal ulnar styloid, compatible with an old avulsion fracture. Electronically Signed: Chico Boo MD at 11:40 EDT ,
== END | disposition home or self-care (01) ==
PROVIDERS: PCP Internal Medicine; Referring Provider Physician Assistant; Visit Provider Physician Assistant
DX: T14.90XA Injury, unspecified, initial encounter (principal)
CPT/HCPCS: 73110

== ENCOUNTER → 2024-02-16 | Outpatient (CLI) | payer OTHER, SELFPAY ==
[2024-02-16 18:21] LABS: Albumin, Serum 3.8 g/dL (3.2-5.0); BUN 15 mg/dL (7-18); BUN/Creat Ratio 8.8 RATIO (10-20); Calcium,Total 9.7 mg/dL (8.5-10.1); Chloride 103 mmol/L (98-107); Creatinine, Serum 1.71 mg/dL (0.55-1.02); EST Glomerular Filtration Rate 33 mL/min (>60); Est Glom Filt Rate - Afr Amer 40 mL/min (>60); Glucose 90 mg/dL (74-106); Phosphorus 2.6 mg/dL (2.5-4.9); Potassium 3.8 mmol/L (3.5-5.1); Sodium Level 138 mmol/L (136-145)
[2024-02-16 18:22] LABS: Protein, Urine (Random) 6.3 mg/dL (<11.9); Protein:Creat Ratio 90 mg/g CRE (0-200)
== END | disposition home or self-care (01) ==
LOC: LAB 16:03
PROVIDERS: PCP Internal Medicine; Visit Provider Internal Medicine Nephrology
DX: N18.31 Chronic kidney disease, stage 3a (principal)
CPT/HCPCS: 36415; 80069; 82570; 84156

== ENCOUNTER 2024-03-08 16:00 | Outpatient (RCR) | payer OTHER, SELFPAY ==
--- NOTE | 2024-02-08 09:26 | HP.PTEVAL_ITS ---
Patient's Visit Information Visit Information Visit Information: DELMER AVILA is a 53 year old F referred to Physical Therapy by Dr. Keith Wu MD with a diagnosis of Decreased mobility, MS. Date of Evaluation: 02/04/24 Physical Therapist: Jose Dejesus DPT Visit Plan Frequency: 2x /Week Duration: 6 Weeks Plan: Start with BLE strengthening of ankles, knees and hips. Progress to I home program. Add in both [facility] and [facility] progressing to dynamic balance. Subjective Subjective: Pt. is here today for her initial evaluation with diagnosis of d ecreased mobility/weakness, MS. Pt. 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 She reports an overall decreased ability to complete ADLs, decreased stability, decreased gati and increased RLE weakness. Pt. reports having increased difficulty at work with walking and generally more frustrated with her decreased functional mobility. No falls. She does have an AFO, but does not use it. She would like to get back to where she was last year with increased I and increased strength. Objective Objective: POSTURE: Pt. has a wide SONAM with R hip ER positioning. General flexed posture. PALATION: normal. NEURO: Decreased DTR of R achilles. Pt. is able to rise on her toes, but not heels. ROM: Pt. has increased Tightness of R calf and B HS. MMT: B hips 4/5 throghout, L ankle 5/5 throughout, R ankle DF 4/5, PF 4+/5. Core strength poor. GAIT: Pt. ambulates without AD, but has decreased R foot clearance. Has AFO, but does not use. Pt. has a R LE circumduction as well. Balance/Special Test Scores Lower Extremity Functional Score: 40 TUG Test Time Seconds: 18 30 Second Chair Rise Test Seconds: 6 Goals Goal 1:: LTG: Pt. to be I with HEP for LE strengthening. Goal Time Frame: 4-6 Weeks Goal 2:: LTG: Pt. to have increased B hip strength to symmetrical. Goal Time Frame: 4-6 Weeks Goal 3:: LTG: Pt. to complete TUG in less than 12 seconds. Goal Time Frame: 4-6 Weeks Goal 4:: LTG: Pt. to complete 30sec sit to stand test with 14 reps. Goal Time Frame: 4-6 Weeks Rehabilitation Potential Physical Therapy Diagnosis: Pt. has signs and symptoms consistent with decreased mobility and RLE weakness due to her MS. Pt. would benefit from PT to work on her BLE strength and core strength. Progressing to dynamic balance and stability with gait. Rehabilitation Potential: Good Anticipated Interventions Patient/Client Instruction: Educate patient on: Condition, Plan of Care, Risk Factors and Benefits of Fitness Program For the Purpose of:: To foster healthy habits, To improve decision making, To facilitate caregiver knowledge, To improve self management, To prevent re-injury and To improve ability to perform tasks related to life management Therapeutic Exercise to Include: Strength training, Power training, Endurance training and Balance training For the Purpose of:: To increase ROM, To improve nutrient delivery to tissue, To increase oxygenation perfusion, To improve muscle performance and motor function, To improve ability to perform ADL's and To increase tolerance to activity/condition/position Text: Thank you for the opportunity to evaluate your patient. For Medicare and Medicare HMO plans, please review the plan of care and approve it. It will need to be FAXED BACK to us at [phone] for Medicare purposes. For Medicare only, by signing this I certify the plan of care. Please let me know if there are questions or concerns regarding this plan of care. Physician Signature: Date:
--- NOTE | 2024-03-11 08:18 | HP.PT.NRP ---
Patient Information Patient Information: DELMER AVILA was seen in my office for initial evaluation on 02/04/24. The following Plan of Care was established for this patient: POC Established Initial Frequency: 2x /Week Initial Duration: 6 Weeks Anticipated Interventions Patient/Client Instruction: Educate patient on: Condition, Plan of Care, Risk Factors and Benefits of Fitness Program For the Purpose of:: To foster healthy habits, To improve decision making, To facilitate caregiver knowledge, To improve self management, To prevent re-injury and To improve ability to perform tasks related to life management Therapeutic Exercise to Include: Strength training, Power training, Endurance training and Balance training For the Purpose of:: To increase ROM, To improve nutrient delivery to tissue, To increase oxygenation perfusion, To improve muscle performance and motor function, To improve ability to perform ADL's and To increase tolerance to activity/condition/position Last Seen Last Seen: This patient was last seen in our office 03/08/24. Pertinent comments regarding their Physical therapy will appear below: Pt. called into today to cancel the rest of her appointments. Pt. reports that she is in a lot of pain and feels like she is in a remission of her MS. She reports she is to have an MRI. She is canceling the rest of her appointments and will get a new script is she feels she needs to come back. Pt. will be DC from PT today. At this point I will be discontinuing this patient from physical therapy. I would be happy to see this patient again in the future if found appropriate by the physician. Thank you! Jose Dejesus, DPT Balance/Gait/Functional tests Balance/Special Test Scores Lower Extremity Functional Score: 40 TUG Test Time Seconds: 18 Tug Test: <20 sec.=mostly independent 30 Second Chair Rise Test Seconds: 6
== END 2024-03-08 19:00 | disposition home or self-care (01) ==
LOC: PT 16:00
PROVIDERS: PCP Internal Medicine; Referring Provider Internal Medicine; Visit Provider Internal Medicine
DX: R26.89 Other abnormalities of gait and mobility (principal); G35 Multiple sclerosis
CPT/HCPCS: 97110; 97161

== ENCOUNTER → 2024-04-12 | Outpatient (CLI) | payer OTHER, SELFPAY ==
[2024-04-12 12:36] LABS: Hematocrit 40.8 % (37-47); Hemoglobin 13.7 g/dL (12.0-15.0); Mean Corp Hgb Conc 33.6 g/dL (32-36); Mean Corpuscular Hgb 33.4 pg (27.0-32.0); Mean Corpuscular Volume 99.5 fL (81-99); Mean Platelet Vol. 8.8 fl (6.2-12.0); Platelet Count 266 K/mm3 (150-450); RBC Distribution Width CV 12.5 % (11.6-14.6); RBC Distribution Width SD 46.1 fl (35.1-43.9); White Blood Count 5.5 K/mm3 (4.4-11.0)
[2024-04-12 12:53] LABS: Vitamin D,25 Hydroxy 54.2 ng/mL
[2024-04-12 13:19] LABS: AST(SGOT) 24 U/L (15-37); Alanine Aminotransfer ALT/SGPT 25 U/L (13-56); Albumin, Serum 3.6 g/dL (3.2-5.0); Alkaline Phosphatase 95 U/L (45-117); Anion Gap 9 (5-15); BUN 17 mg/dL (7-18); BUN/Creat Ratio 10.8 RATIO (10-20); Calcium,Total 9.5 mg/dL (8.5-10.1); Chloride 105 mmol/L (98-107); Cholesterol 193 mg/dL (200); Creatinine, Serum 1.57 mg/dL (0.55-1.02); EST Glomerular Filtration Rate 36 mL/min (>60); Est Glom Filt Rate - Afr Amer 44 mL/min (>60); Free T3 2.6 pg/mL (2.18-3.98); Globulin 3.5 g/dL (2.2-4.2); Glucose 120 mg/dL (74-106); High Density Lipoprotein 58 mg/dL; Potassium 3.6 mmol/L (3.5-5.1); Protein, Total 7.1 g/dL (6.4-8.2); Sodium Level 139 mmol/L (136-145); T4 Free Direct 1.01 ng/dL (0.76-1.46); Triglycerides 87 mg/dL; Very Low Density Lipoprotein 17 mg/dL (5-40)
[2024-04-12 14:57] LABS: Hemoglobin A1c 5.5 % (3.8-5.6)
[2024-04-14 12:21] LABS: Rheumatoid Factor < 10.0 IU/mL (<15)
[2024-04-15 11:09] LABS: CCP IgG Antibodies 4 units (0-19)
== END | disposition home or self-care (01) ==
LOC: BIMLAB 09:12
PROVIDERS: PCP Internal Medicine; Referring Provider Internal Medicine Endocrinology, Diabetes & Metabolism; Visit Provider Internal Medicine Endocrinology, Diabetes & Metabolism
DX: E03.9 Hypothyroidism, unspecified (principal); G35 Multiple sclerosis; E11.65 Type 2 diabetes mellitus with hyperglycemia; E11.22 Type 2 diabetes mellitus with diabetic chronic kidney disease; E27.8 Other specified disorders of adrenal gland; N18.9 Chronic kidney disease, unspecified
CPT/HCPCS: 36415; 80053; 80061; 82306; 83036; 84439; 84443; 84481; 85027; 86200; 86431

== ENCOUNTER → 2024-04-19 | Outpatient (CLI) | payer OTHER, SELFPAY ==
--- NOTE | 2024-04-19 08:00 | RAD_ITS ---
INDICATION: Bilateral Knee Pain EXAMINATION/TECHNIQUE: X-RAY - LEFT XR Knee Complete 4 Views or More 4 VIEWS COMPARISON: No relevant prior comparison study available FINDINGS: SOFT TISSUES: No soft tissue swelling or gas. No radiopaque foreign body. BONES/JOINTS: No acute fracture or subluxation.. Normal alignment. There is a trace effusion.. No sclerotic or destructive changes observed. RAD/Knee 4 or More Views IMPRESSION: 1. No evidence fracture, malalignment or focal bony or joint space abnormality. 2. Trace effusion noted in the suprapatellar bursa. Electronically Signed: Nima Menard MD at 23:53 EDT ,
--- NOTE | 2024-04-19 08:00 | RAD_ITS ---
INDICATION: PAIN EXAMINATION/TECHNIQUE: X-RAY - RIGHT XR Knee Complete 4 Views or More 4 VIEWS COMPARISON: No relevant prior comparison study available FINDINGS: SOFT TISSUES: There is a medial soft tissue swelling. No soft tissue gas. No radiopaque foreign body. BONES/JOINTS: No acute fracture or subluxation.. Normal alignment. Preservation of the joint space.. No sclerotic or destructive changes observed. RAD/Knee 4 or More Views IMPRESSION: 1. No evidence fracture, malalignment or focal bony or joint space abnormality. 2. Medial soft tissue swelling/bruising. No soft tissue gas or radiopaque foreign body. Electronically Signed: Nima Menard MD at 20:47 EDT ,
--- NOTE | 2024-04-19 08:00 | RAD_ITS ---
INDICATION: Bilateral Hip Pain EXAMINATION/TECHNIQUE: X-RAY - XR Hips Bilateral with Pelvis when performed; 2 Views COMPARISON: No relevant prior comparison study available FINDINGS: PELVIC BONES: No displaced fracture, destructive or sclerotic lesions. Note that overlapping bowel shadows may however obscure fine detail. Sacroiliac joints are unremarkable. No widening of the pubic symphysis. HIPS: The articular structures are unremarkable. No displaced fracture seen in this frontal view. SOFT TISSUES: No soft tissue swelling or gas. Multiple phleboliths are present in the pelvis. RAD/Hips B/L min 2 views w/ Pelvis IMPRESSION: 1. No evidence of displaced pelvic or hip fracture. Electronically Signed: Nima Menard MD at 23:53 EDT ,
== END | disposition home or self-care (01) ==
LOC: RAD 07:45
PROVIDERS: PCP Internal Medicine; Referring Provider Internal Medicine; Visit Provider Internal Medicine
DX: M19.90 Unspecified osteoarthritis, unspecified site (principal)
CPT/HCPCS: 73521; 73564

== ENCOUNTER → 2024-04-27 | Outpatient (CLI) | payer OTHER, SELFPAY ==
[2024-04-27 10:52] LABS: AST(SGOT) 18 U/L (15-37); Alanine Aminotransfer ALT/SGPT 20 U/L (13-56); Albumin, Serum 3.4 g/dL (3.2-5.0); Alkaline Phosphatase 86 U/L (45-117); Anion Gap 6 (5-15); BUN 13 mg/dL (7-18); BUN/Creat Ratio 8.6 RATIO (10-20); Calcium,Total 9.7 mg/dL (8.5-10.1); Chloride 104 mmol/L (98-107); Creatinine, Serum 1.52 mg/dL (0.55-1.02); EST Glomerular Filtration Rate 38 mL/min (>60); Est Glom Filt Rate - Afr Amer 46 mL/min (>60); Globulin 3.3 g/dL (2.2-4.2); Glucose 92 mg/dL (74-106); Potassium 3.8 mmol/L (3.5-5.1); Protein, Total 6.7 g/dL (6.4-8.2); Sodium Level 139 mmol/L (136-145)
[2024-04-27 10:58] LABS: 24HR. Urine Creatinine 1.05 g/24 HR (0.70-1.90); 24Hr.Lytes Total Volume 1200 mL; Sodium 24 HR UR 11 mmol/24h (40-220); Urine Potassium 18.8 mmol/L (Not Establ.); Urine Potassium/ 24 Hours 22.6 mmol/24h (25-125); Urine Sodium 9 mmol/L (Not Establ.)
[2024-04-30 22:07] LABS: Adrenocorticotropic Hormone 14.4 pg/mL (7.2-63.3); Aldosterone, Serum 11.1 ng/dL (0.0-30.0); DHEA Sulfate 38.1 ug/dL (41.2-243.7); Renin, Plasma 1.312 ng/mL/hr (0.167-5.380)
[2024-05-03 11:08] LABS: Aldosterone, 24Ur 6.71 ug/24 hr (0.00-19.00); Aldosterone, Ur 5.59 ug/L (Not Estab.); Cortisol, Free 24Ur 5 ug/24 hr (6-42); Cortisol, Urinary Free 4 ug/L (Undefined); Metanephrine, Ur 31 ug/L (Undefined); Metanephrines, 24Ur 37 ug/24 hr (36-209); Normetanephrines, 24Ur 371 ug/24 hr (131-612); Normetanephrines, Ur 309 ug/L (Undefined)
== END | disposition home or self-care (01) ==
PROVIDERS: PCP Internal Medicine; Referring Provider Internal Medicine Endocrinology, Diabetes & Metabolism; Visit Provider Internal Medicine Endocrinology, Diabetes & Metabolism
DX: E03.9 Hypothyroidism, unspecified (principal); G35 Multiple sclerosis; E11.65 Type 2 diabetes mellitus with hyperglycemia; E11.22 Type 2 diabetes mellitus with diabetic chronic kidney disease; E27.8 Other specified disorders of adrenal gland; N18.9 Chronic kidney disease, unspecified
CPT/HCPCS: 36415; 80053; 81050; 82024; 82088; 82530; 82533; 82570; 82627; 83835; 84133; 84244; 84300; 82626

== ENCOUNTER → 2024-06-24 | Outpatient (CLI) | payer OTHER, SELFPAY ==
[2024-06-24 13:04] LABS: AST(SGOT) 20 U/L (15-37); Alanine Aminotransfer ALT/SGPT 29 U/L (13-56); Albumin, Serum 3.6 g/dL (3.2-5.0); Alkaline Phosphatase 98 U/L (45-117); Anion Gap 5 (5-15); BUN 21 mg/dL (7-18); BUN/Creat Ratio 15.6 RATIO (10-20); Calcium,Total 9.9 mg/dL (8.5-10.1); Chloride 106 mmol/L (98-107); Creatinine, Serum 1.35 mg/dL (0.55-1.02); EST Glomerular Filtration Rate 43 mL/min (>60); Est Glom Filt Rate - Afr Amer 52 mL/min (>60); Globulin 3.6 g/dL (2.2-4.2); Glucose 99 mg/dL (74-106); Potassium 3.8 mmol/L (3.5-5.1); Protein, Total 7.2 g/dL (6.4-8.2); Sodium Level 138 mmol/L (136-145)
== END | disposition home or self-care (01) ==
LOC: BIMLAB 09:07
PROVIDERS: PCP Internal Medicine; Referring Provider Internal Medicine; Visit Provider Internal Medicine
DX: N18.30 Chronic kidney disease, stage 3 unspecified (principal)
CPT/HCPCS: 36415; 80053

== ENCOUNTER → 2024-07-07 | Outpatient (CLI) | payer OTHER, SELFPAY ==
--- NOTE | 2024-07-07 09:13 | RAD_ITS ---
STUDY: X-RAY - LEFT FOOT CLINICAL: Female, 53 years old. Medial foot pain following a strain. TECHNIQUE: 3 view(s) of the foot. COMPARISON: Comparison is made with prior study January 13, 2019. FINDINGS: There is an enthesophyte involving the posterior superior calcaneus at the site of insertion of the Achilles tendon. Normal visualized subtalar, talonavicular, calcaneocuboid, tarsal and tarsometatarsal articulations. Normal metatarsi. There is degenerative arthrosis of the metatarsophalangeal joint of the hallux . Normal tibial and fibular sesamoid bones. Normal interphalangeal joint of the great toe. Normal phalanges of the great toe. Normal second through fifth metatarsophalangeal joints. Normal interphalangeal joints and phalanges of the lesser toes. The soft tissue structures are unremarkable. RAD/Foot min 3 Views IMPRESSION: Degenerative change at the first metatarsophalangeal joint. Electronically Signed: Raheem Hood MD at 9:41 EST ,
== END | disposition home or self-care (01) ==
LOC: MTRAD 09:13
PROVIDERS: PCP Internal Medicine; Referring Provider Physician Assistant; Visit Provider Physician Assistant
DX: T14.8XXA Other injury of unspecified body region, initial encounter (principal)
CPT/HCPCS: 73630

== ENCOUNTER 2024-07-19 16:54 | Outpatient (RCR) | payer OTHER, SELFPAY ==
--- NOTE | 2024-07-20 13:30 | HP.PTEVAL ---
Patient's Visit Information Visit Information Visit Information: DELMER AVILA is a 53 year old F referred to Physical Therapy by ANDREA Teague with a diagnosis of L foot sprain. Date of Evaluation: 07/19/24 Physical Therapist: Rik Gautam, PT, ATC Visit Plan Frequency: 2x /Week Duration: 3 Weeks Plan: L foot stretching and mobs, L ankle strengthening, gait training, balance, and HEP. US/CP for pain Subjective Subjective: Pt reports she was stepping off a step about 4 weeks ago when she experienced a pain in her L foot. Pt reports no real immediate pain, but pain showed up later that night. Pt reports she was Dx'd with MS 20 years ago, and it mostly effects her R side. Pt reports no PMHx of L foot trauma. Pt reports she did have x-rays taken that revealed no fractures. 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 Pt reports she has difficulty with stair negotiation secondary to pain. Pt notes she has severe difficulty with even being able to walk at this time. Pt reports she works on a [employer] style setting and has to walk 100's of feet to her car from her office. Pt reports she has sleep difficulty secondary to the L foot pain. 5/10 pain while at rest, 10/10 pain when at its worst. Pain L foot pain: Pain Intensity (Out of 10): 5 Pain Intensity Range: 10 Objective Objective: Neuro: B LE sensation is WNL to light touch. Palpation: Pt is sore along the spring ligament. No obvious deformity noted at this time. ROM: R ankle DF= -7, PF= 50; L ankle DF= 10, PF= 60 MMT: R ankle DF= 19, PF=27 #F; L ankle DF= 41, PF= 17 Gait: Pt ambulates with a slow cadance and limp of L LE Balance/Special Test Scores Lower Extremity Functional Score: 18 Goals Goal 1:: Decrease L foot pain x 50% to aid with sleep Goal Time Frame: 2-4 Weeks Goal 2:: Pt will be able to ambulate with a normal gait pattern on L LE Goal Time Frame: 2-4 Weeks Goal 3:: Pt will be able to ambulate 300 feet without difficulty Goal Time Frame: 2-4 Weeks Goal 4:: I with HEP Goal Time Frame: 2-4 Weeks Rehabilitation Potential Physical Therapy Diagnosis: Pt has L foot pain, weakness, and limited ROM secondary to L foot sprain Rehabilitation Potential: Good Anticipated Interventions Patient/Client Instruction: Educate patient on: Condition and Plan of Care For the Purpose of:: To improve self management Therapeutic Exercise to Include: Strength training, Endurance training, Balance training, Flexibilty training, Gait and locomotor training, Passive ROM and Active ROM For the Purpose of:: To decrease pain, To increase ROM and To improve muscle performance and motor function Cryotherapy (ice pack, ice massage): Yes For the Purpose of:: To decrease pain Text: Thank you for the opportunity to evaluate your patient. For Medicare and Medicare HMO plans, please review the plan of care and approve it. It will need to be FAXED BACK to us at [phone] for Medicare purposes. For Medicare only, by signing this I certify the plan of care. Please let me know if there are questions or concerns regarding this plan of care. Physician Signature: Date:
--- NOTE | 2024-10-04 12:34 | HP.PT.NRP ---
Patient Information Patient Information: DELMER AVILA was seen in my office for initial evaluation on 07/19/24. The following Plan of Care was established for this patient: POC Established Initial Frequency: 2x /Week Initial Duration: 3 Weeks Anticipated Interventions Patient/Client Instruction: Educate patient on: Condition and Plan of Care For the Purpose of:: To improve self management Therapeutic Exercise to Include: Strength training, Endurance training, Balance training, Flexibilty training, Gait and locomotor training, Passive ROM and Active ROM For the Purpose of:: To decrease pain, To increase ROM and To improve muscle performance and motor function Cryotherapy (ice pack, ice massage): Yes For the Purpose of:: To decrease pain Last Seen Last Seen: This patient was last seen in our office . Pertinent comments regarding their Physical therapy will appear below: Pt has not returned for physical therapy for greater than 30 days and is discontinued at this time. At this point I will be discontinuing this patient from physical therapy. I would be happy to see this patient again in the future if found appropriate by the physician. Thank you! Rik Gautam, PT, ATC Balance/Gait/Functional tests Balance/Special Test Scores Lower Extremity Functional Score: 18
== END 2024-07-19 19:00 | disposition home or self-care (01) ==
LOC: PT 16:54
PROVIDERS: PCP Internal Medicine; Referring Provider Physician Assistant; Visit Provider Physician Assistant
DX: S93.602D Unspecified sprain of left foot, subsequent encounter (principal)
CPT/HCPCS: 97161

== ENCOUNTER → 2024-08-26 | Outpatient (CLI) | payer OTHER, SELFPAY ==
--- NOTE | 2024-08-26 09:39 | BD_ITS ---
STUDY: DUAL ENERGY X-RAY ABSORPTIOMETRY / DXA REASON FOR EXAM: Female, 54 years old. Postmenopausal screening TECHNIQUE: Bone Mineral Density (BMD) measurements of lumbar spine and bilateral hips were obtained. COMPARISON: 2017 FINDINGS: Lumbar Spine (L1-L4): g/cm2 (0.888) / T-score (-1.4) / Z-score (-0.4) Bone mineral density in the lumbar spine has increased by 1.4% since the previous study Left Femur Total: g/cm2 (1.009) / T-score (0.5) / Z-score (1.2) Left Femoral Neck: g/cm2 (0.744) / T-score (-0.9) / Z-score (0.1) Right Femur Total: g/cm2 (0.944) / T-score (0.0) / Z-score (0.7) Right Femoral Neck: g/cm2 (0.720) / T-score (-1.2) / Z-score (-0.1) Bone mineral density in the right femur has increased by 1% and is unchanged in the left femur compared to the previous study BD/Dexa Bone Density Study IMPRESSION: The patient is considered osteopenic as outlined below according to World Josh Organization (WHO) criteria with a moderate fracture risk. 10 year fracture risk: Major osteoporotic fracture 13%, hip fracture 0.9% Reference Information: The T-score is the number of standard deviations above or below the standard which is normal for young adults at their peak bone mineral density. The World Health Organization (WHO) interprets the T-scores as follows: Above -1 Normal bone density Between -1 and -2.5 Osteopenia Equal to / or below -2.5 Osteoporosis As a practical clinical guideline, osteopenia may be graded as follows: Mild -1 through -1.5 Moderate -1.6 through -2.0 Severe -2.1 through -2.4 The Z-score is the number of standard deviations above or below age-matched controls. A Z-score of less than -1.5 would be considered abnormal. References: 1. NIH Osteoporosis and Related Bone Diseases www osteo.org 2. International Society for Clinical Densitometry www iscd.org 3. National Osteoporosis Foundation www nof.org Electronically Signed: Alessandro Gottlieb MD at 9:41 EST ,
--- NOTE | 2024-08-26 09:39 | BI_ITS ---
MAMMOGRAPHY - BILATERAL SCREENING 3-D TOMOSYNTHESIS REASON FOR EXAM: Female, 54 years old. Routine screening PERTINENT HISTORY: No significant family history. Previous left breast biopsy TECHNIQUE: 2-D mammograms and 3-D Tomosynthesis of the breast (s) were performed. CAD was performed. COMPARISON: 05/24/2020 FINDINGS: The breast composition is composed of scattered fibroglandular density. Scattered benign calcifications are seen. No dense spiculated masses or suspicious microcalcifications are identified. No architectural distortion is identified. There is no skin thickening or retraction. There has been no significant change since the prior study. BI/SCRN MAMM (CAD)W/DEJON BILAT IMPRESSION: No mammographic signs of malignancy. Routine yearly mammograms recommended. ASSESSMENT CATEGORY: BIRADS Category 1: Negative. A letter regarding these results will be sent to the patient by the facility within 30 days. FOLLOW UP RECOMMENDATION: Yearly follow up mammogram recommended. (A) Approximately 10% of breast cancers are not detected by mammography. A normal mammogram should not delay biopsy of a clinically suspicious abnormality. Electronically Signed: Alessandro Gottlieb MD at 11:17 EST ,
== END | disposition home or self-care (01) ==
LOC: OPBD 09:38
PROVIDERS: PCP Internal Medicine; Referring Provider Internal Medicine; Visit Provider Internal Medicine
DX: Z12.31 Encounter for screening mammogram for malignant neoplasm of breast (principal); Z78.0 Asymptomatic menopausal state
CPT/HCPCS: 77063; 77067; 77080

== ENCOUNTER → 2024-09-20 | Outpatient (CLI) | payer OTHER, SELFPAY ==
[2024-09-20 12:31] LABS: Vitamin D,25 Hydroxy 57.6 ng/mL
[2024-09-20 12:45] LABS: ALB/GLOB Ratio 1.1 RATIO (0.9-2.4); AST(SGOT) 13 U/L (15-37); Alanine Aminotransfer ALT/SGPT 21 U/L (13-56); Albumin, Serum 3.8 g/dL (3.2-5.0); Alkaline Phosphatase 83 U/L (45-117); Anion Gap 8 (5-15); BUN 22 mg/dL (7-18); BUN/Creat Ratio 13.5 RATIO (10-20); Calcium,Total 9.6 mg/dL (8.5-10.1); Chloride 102 mmol/L (98-107); Creatinine, Serum 1.63 mg/dL (0.55-1.02); EST Glomerular Filtration Rate 35 mL/min (>60); Est Glom Filt Rate - Afr Amer 42 mL/min (>60); Free T3 2.8 pg/mL (2.18-3.98); Globulin 3.6 g/dL (2.2-4.2); Glucose 84 mg/dL (74-106); Potassium 3.9 mmol/L (3.5-5.1); Protein, Total 7.4 g/dL (6.4-8.2); Sodium Level 136 mmol/L (136-145); Thyroid Stim Hormone (TSH) 0.423 uIU/mL (0.358-3.740)
[2024-09-20 12:56] LABS: Microalbumin,Random Urine 5.8 mg/L (NO RANGE EST.); Microalbumin:Creatinine Ratio 4.6 mg/g CRE (<30 mg/g CRE)
[2024-09-20 13:00] LABS: Hemoglobin A1c 5.4 % (3.8-5.6)
== END | disposition home or self-care (01) ==
LOC: BIMLAB 09:29
PROVIDERS: PCP Internal Medicine; Referring Provider Internal Medicine Endocrinology, Diabetes & Metabolism; Visit Provider Internal Medicine Endocrinology, Diabetes & Metabolism
DX: E11.22 Type 2 diabetes mellitus with diabetic chronic kidney disease (principal); G35 Multiple sclerosis; E11.65 Type 2 diabetes mellitus with hyperglycemia; E03.9 Hypothyroidism, unspecified; E27.8 Other specified disorders of adrenal gland; N18.9 Chronic kidney disease, unspecified
CPT/HCPCS: 36415; 80053; 82043; 82306; 82570; 83036; 84439; 84443; 84481

== ENCOUNTER → 2024-10-12 | Outpatient (CLI) | payer OTHER, SELFPAY | END | disposition home or self-care (01) | PROVIDERS: PCP Internal Medicine; Referring Provider Psychiatry & Neurology Neurology; Visit Provider Psychiatry & Neurology Neurology | DX: G35 Multiple sclerosis (principal) | CPT/HCPCS: 95819 ==

== ENCOUNTER → 2025-02-09 | Outpatient (CLI) | payer OTHER, SELFPAY ==
--- NOTE | 2025-02-09 17:40 | RAD_ITS ---
PROCEDURE: L/S SPINE MIN 4 VIEWS 02/09/2025 REASON FOR EXAM: BACK PAIN TECHNIQUE: L/S SPINE MIN 4 VIEWS COMPARISON: None. FINDINGS: Mild degenerative dextroscoliosis apex at L3. Grade 1 anterolisthesis of L5 on S1 secondary to bilateral pars defects. Grade 1 anterolisthesis of L4 on L5 secondary to facet joint arthropathy. Exaggerated lumbar lordosis. There are diffuse spondylotic changes. Findings are demonstrated to by diffuse disc space narrowing, osteophyte formation and degenerative endplate sclerosis. There is diffuse facet joint arthropathy with secondary bilateral neural foramina narrowing. No fracture or dislocation is seen. No aggressive lytic or blastic bony lesion is noted. RAD/L/S Spine Min 4 Views IMPRESSION: Mild degenerative dextroscoliosis apex at L3. Grade 1 anterolisthesis of L5 on S1 secondary to bilateral pars defects. Grade 1 anterolisthesis of L4 on L5 secondary to facet joint arthropathy. Exaggerated lumbar lordosis. Spondylosis. Reading Location: [facility]
== END | disposition home or self-care (01) ==
LOC: RAD 17:04
PROVIDERS: PCP Internal Medicine; Referring Provider Internal Medicine; Visit Provider Internal Medicine
DX: M54.9 Dorsalgia, unspecified (principal); G89.29 Other chronic pain
CPT/HCPCS: 72110

== ENCOUNTER → 2025-03-12 | Outpatient (CLI) | payer OTHER, SELFPAY ==
--- OUTSIDE RECORDS SUMMARY | 2025-03-12 10:59 | XMS RPT_ITS | CCD ---
Author Organization [facility] Care Team Providers Care Supervisor Stave Finishing Name Role Phone Dina Wu Primary Care Provider Dr. Dina Gutiérrez Primary Care Provider [phone] Dr. Dina Wu Attending Provider [phone] Dr. Dina Wu Referring Provider [phone] Dr. Yazmin Patricia Attending Provider Dr. Dina Wu Primary Care Provider 1(33 [phone]) Dr. Dina Wu Referring Provider [phone] Dr. Dina Wu Primary Care Provider 1(33 0) Paris Xie Attending Provider Unavailable Dr. Dina Wu Attending Provider [phone] Dr. Dina Wu Referring Provider [phone] ANDREA Madrid Attending Provider Dr. Dina Leon Primary Care Provider 1(33 0) Dr. Dina Wu Primary Care Provider 1(33 0) Dr. Dina Wu Attending Provider [phone] Dr. Dina Wu Referring Provider [phone] ANDREA [place] Attending Provider Dina Leon Primary Care Provider Dina Wu Primary Care Provider OLEGHE, EFEWONGBE Primary Care Unavailable ISAI GARRISON, [...] TANNER Attending Unavailable OLEGHE, EFEWONGBE Consulting Unavailable Annita Escobedo DO Primary Care Provider Annita Escobedo DO Primary Care Provider TANYA HERRON Referring Unavailable ANNITA ESCOBEDO Primary Care Unavailable AURA DENNISON I Attending Unavailable TANYA HERRON Referring Unavailable ANNITA ESCOBEDO Primary Care Unavailable Annita Escobedo DO Primary Care Provider [phone] ANNITA ESCOBEDO Primary Care Unavailable LUCIA CORTES Referring Unavailable ANNITA ESCOBEDO Primary Care Unavailable LUCIA CORTES Attending Unavailable ANNITA ESCOBEDO Primary Care Unavailable LUCIA CORTES Referring Unavailable ANNITA ESCOBEDO Primary Care Unavailable LUCIA CORTES Attending Unavailable SOUTHGEGE M Referring Unavailable SEVEROANNITA RICHARD Primary Care Unavailable SOUTHGEGE M Attending Unavailable MARIA DE JESUS CLEANING Referring Unavailable SEVEROANNITA RICHARD Primary Care Unavailable LUCIA CORTES Referring Unavailable SEVEROANNITA RICHARD Primary Care Unavailable LUCIA CORTES Referring Unavailable SEVEROANNITA RICHARD Primary Care Unavailable LUISITO DONOVAN Attending Unavailable OLEGHE, EFEWONGBE Primary Care Unavailable LUISITO DONOVAN Attending Unavailable OLEGHE, EFEWONGBE Primary Care Unavailable LUISITO DONOVAN Attending Unavailable OLEGHE, EFEWONGBE Primary Care Unavailable LUISITO DONOVAN Attending Unavailable OLEGHE, EFEWONGBE Primary Care Unavailable Oleghe, Efewongbe Attending Unavailable Oleghe, Efewongbe Referring Unavailable Oleghe, Efewongbe Primary Care Unavailable Oleghe, Efewongbe Primary Care Unavailable Eddie Vergara Attending Unavailable Eddie Vergara Referring Unavailable Oleghe, Efewongbe Primary Care Unavailable Eddie Vergara Referring Unavailable Eddie Vergara Attending Unavailable Oleghe, Efewongbe Primary Care Unavailable RICHARD DAVIS Referring Unavailable RICHARD DAVIS Attending Unavailable Oleghe, Efewongbe Attending Unavailable Oleghe, Efewongbe Primary Care Unavailable Oleghe, Efewongbe Referring Unavailable Raghunathan, Radha Na Referring Unavaila ble Raghunathan, Radha Na Attending Unavaila ble Oleghe, Efewongbe Primary Care Unavailable Raghunathan, Radha Na Referring Unavaila ble Raghunathan, Radha Na Attending Unavaila ble Oleghe, Efewongbe Primary Care Unavailable Oleghe, Efewongbe Referring Unavailable Oleghe, Efewongbe Attending Unavailable Oleghe, Efewongbe Primary Care Unavailable Oleghe, Efewongbe Primary Care Unavailable Oleghe, Efewongbe Attending Unavailable Oleghe, Efewongbe Referring Unavailable Oleghe, Efewongbe Primary Care Unavailable Eddie Zaldivar Attending Unavailable Oleghe, Efewongbe Attending Unavailable Oleghe, Efewongbe Referring Unavailable Oleghe, Efewongbe Primary Care Unavailable Oleghe, Efewongbe Attending Unavailable Oleghe, Efewongbe Referring Unavailable Oleghe, Efewongbe Primary Care Unavailable Oleghe, Efewongbe Referring Unavailable Oleghe, Efewongbe Attending Unavailable Oleghe, Efewongbe Primary Care Unavailable Raghunathan, Radha Na Referring Unavaila ble Raghunathan, Radha Na Attending Unavaila ble Oleghe, Efewongbe Primary Care Unavailable Oleghe, Efewongbe Primary Care Unavailable Eddie Zaldivar Attending Unavailable Oleghe, Efewongbe Primary Care Unavailable Eddie Zaldivar Attending Unavailable Eddie Vergara Attending Unavailable Oleghe, Efewongbe Primary Care Unavailable Oleghe, Efewongbe Referring Unavailable Oleghe, Efewongbe Primary Care Unavailable Oleghe, Efewongbe Attending Unavailable Oleghe, Efewongbe Referring Unavailable Oleghe, Efewongbe Primary Care Unavailable Eddie Zaldivar Attending Unavailable Oleghe, Efewongbe Referring Unavailable Oleghe, Efewongbe Attending Unavailable Oleghe, Efewongbe Primary Care Unavailable Allergies Allergy Classification Reported Allergen(s) Allergy Type Date of Onset Reaction(s) Facility (20 sources) Doxycycline; Translations: [DOXYCYCLINE] Drug Allergy 06-06-20 18 Nausea And Vomiting, Anxiety, Headache, Vomiting [place], [place] (20 sources) Latex; Translations: [LATEX] Propensity to adverse reactions to drug 12-10-19 16 Itching [place], [place] (20 sources) levoFLOXacin; Translations: [LEVOFLOXACIN] Drug Allergy 09-04-19 12 Nausea And Vomiting, Other: See Comments, GI Upset [place], [place] (20 sources) Prochlorperazine Drug Allergy 08-30-19 15 Other [place], [place] (1 source) Sulfonamides (Antibiotic) Propensity to adverse reactions to drug 09-04-19 12 Nausea And Vomiting [place] (1 source) Other Propensity to adverse reactions 04-29-20 19 [place] (20 sources) Prochlorperazine Edisylate; Translations: [PROCHLORPERAZINE EDISYLATE] Propensity to adverse reactions to drug 08-30-19 15 Mental Status Change [place], [place] (20 sources) Sulfonamides (Antibiotic) Drug Intolerance 09-04-19 12 Nausea And Vomiting [facility] (1 source) Amino Acids Drug Allergy [facility] Rep[facility] (1 source) Doxycycline Drug Allergy [facility] (1 source) Latex Drug allergy (disorder) [facility] Repository (1 source) Penicillins Drug allergy (disorder) [facility] (1 source) Prochlorperazine Drug Allergy [facility] Repository (2 sources) Sulfonamides (Antibiotic); Translations: [SULFA (SULFONAMIDE ANTIBIOTICS)] Drug allergy (disorder) 09-04-19 12 [facility] Repository (1 source) Penicillin; Translations: [PENICILLIN] Drug Allergy 12-10-19 [facility] Repository (2 sources) allyl sulfide Drug Allergy 07-16-20 [facility] (2 sources) Amino Acids Drug Allergy 02-19-20 [facility] (2 sources) Corticosteroids and derivatives Drug Allergy 04-19-20 [facility] (2 sources) Latex Allergy to substance 11-24-19 Dermatitis, Itching, Rash [facility] (2 sources) Penicillins Propensity to adverse reactions 11-24-19 Rash [facility] (2 sources) Sulfamethoxazole / Trimethoprim Drug Allergy 11-24-19 [facility] (1 source) Corticosteroids Drug allergy (disorder) 12-10-19 [facility] Repository (1 source) Doxycycline Drug Allergy 12-10-19 [facility] Repository (1 source) Garlic preparation Drug Allergy 12-10-19 [facility] Repository (1 source) Latex Drug allergy (disorder) 12-10-19 [facility] Repository (1 source) Prochlorperazine Drug Allergy 12-10-19 [facility] Repository Medications Current Medications Medication Drug Class(es) Dates Sig (Normalized) Sig (Original) acyclovir 400 mg oral tablet (20 sources) Herpesvirus Nucleoside Analog DNA Polymerase Inhibitor, Herpes Simplex Virus Nucleoside Analog DNA Polymerase Inhibitor, Herpes Zoster Virus Nucleoside Analog DNA Polymerase Inhibitor Start: 09-11-2023 take 1 tablet by mouth every twelve hours acyclovir (ZOVIRAX) 400 mg tablet Take 1 tablet by mouth every 12 hours. 09/11/2023 Active Start: 01-15-2023 take 1 tablet by lynda th twice daily acyclovir (Zovirax) 400 MG tablet Take 400 mg by mouth 2 times daily. 01/15/2023 Active Start: 07-27-2021 take 400 mg by mouth twice daily Acyclovir Active 400 MG PO TWICE A DAY July 27, 2021 8:33am Start: 12-13-2020 End: 07-27-2021 take 200 mg by mouth twice daily Acyclovir Discontinued 200 MG PO TWICE A DAY December 12, 2020 11:00pm July 27, 2021 8:34am Comment on above: Take 1 tablet by lynda th every 12 hours. amLODIPine 10 mg oral tablet (20 sources) Dihydropyridine Calcium Channel Javon Start: take 10 mg by mouth once daily Amlodipine Active 10 MG PO DAILY June 11, 2022 7:55am Start: 01-26-2019 End: 10-08-2023 take 5 mg by mouth once daily Amlodipine Discontinued 5 MG PO DAILY January 23, 2021 10:05am March 14, 2021 10:34am Start: 11-18-2018 End: 01-26-2019 take 7.5 mg by mouth once daily Amlodipine Discontinued 7.5 MG PO DAILY November 18, 2018 1:02pm January 26, 2019 7:50am Start: 10-20-2018 End: 11-18-2018 take 5 mg by mouth once daily Amlodipine Discontinued 5 MG PO DAILY October 20, 2018 12:00am November 18, 2018 1:02pm baclofen 10 mg oral tablet (20 sources) gamma-Aminobutyric Acid-ergic Agonist Start: 01-14-2023 take 2 tablets by mouth four times daily baclofen (Lioresal) 10 MG tablet TAKE 2 TABLETS BY MOUTH 4 TIMES A DAY 30 DAYS 01/14/2023 Active Start: 09-11-2017 End: 08-09-2024 take 1 tablet by mouth four times daily baclofen 10 mg tablet Take 1 tablet by mouth four times daily. 120 tablet 5 02/11/2024 08/09/2024 Active Start: 09-11-2017 End: 07-27-2021 baclofen (LIORESAL) 10 mg ta blet 0 09/11/2017 Active 24 hr buPROPion hydrochloride 150 mg extended release oral tablet (20 sources) Aminoketone Start: 10-07-2023 buPROPion XL ( WELLBUTRIN XL) 150 mg 24 hr tablet 10/07/2023 Active Start: 01-16-2023 End: 08-21-2023 take 1 tablet by mouth twice daily buPROPion SR (Wellbutrin SR) 150 MG 12 hr tablet Take 150 mg by mouth 2 times daily. 0 01/16/2023 08/21/2023 Discontinued (Therapy completed) Start: 12-24-2022 take 1 tablet by lynda th once daily in the morning buPROPion XL (Wellbutrin XL) 300 MG 24 hr tablet Take 300 mg by mouth every morning. 12/24/2022 Active Start: 03-07-2021 End: 06-24-2022 take 300 mg by mouth once daily in the morning Bupropion Hcl Discontinued 300 MG PO EVERY MORNING December 27, 2021 8:01am June 24, 2022 7:46am Start: 02-13-2021 End: 06-29-2021 take 300 mg by mouth once daily in the morning Bupropion Hcl Discontinued 300 MG PO EVERY MORNING February 13, 2021 7:16am June 29, 2021 8:25am Start: 12-13-2020 End: 02-13-2021 take 450 mg by mouth once daily in the morning Bupropion Hcl Discontinued 450 MG PO EVERY MORNING December 13, 2020 11:09am February 13, 2021 7:19am Start: 09-19-2017 End: 12-13-2020 take 300 mg by mouth once daily in the morning Bupropion Hcl Discontinued 300 MG PO EVERY MORNING December 05, 2020 2:18pm December 13, 2020 10:34am End: 10-08-2023 BUPROPION HCL (WELLBUTRIN OR AL) Take by mouth. 0 10/08/2023 Discontinued Comment on above: Take by mouth. cladribine 10 mg oral tablet (20 sources) Purine Antimetabolite Start: 09-18-2023 cladribine,multiple sclerosis, (MAVENCLAD, 10 TABLET PACK,) 10 mg tablet 09/18/2023 Active Start: 06-13-2021 take 2 tablets by [facility] once daily Cladribine(Multiple Sclerosis) (Mavenclad (10 Tablet Pack)) 10 mg tablet Active 10 MG PO DAILY June 12, 2021 11:00pm administer daily for 5 days for each of 2 cycles per yearly treatment course 12 hr dalfampridine 10 mg extended release oral tablet (20 sources) Potassium Channel Javon Start: 10-29-2017 End: 11-23-2023 take 1 tablet by mouth twice daily dalfampridine (AMPYRA) 10 MG extended release tablet Take 10 mg by mouth 2 times daily 0 03/18/2019 Active Start: 09-19-2017 take 1 tablet by lynda every twelve hours Dalfampridine (Ampyra) 10 mg tablet extended release 12 hr Active 10 MG PO Q12H September 19, 2017 12:00am 24 hr desvenlafaxine succinate 50 mg extended release oral tablet (20 sources) Serotonin and Norepinephrine Reuptake Inhibitor Start: 01-17-2023 take 1 tablet by mouth once daily desvenlafaxine (Pristiq) 50 MG 24 hr tablet Take 50 mg by mouth daily. 01/17/2023 Active Comment on above: Take 1 tablet by [facility] every afternoon. dextromethorphan hydrobromide 20 mg / quiNIDine sulfate 10 mg oral capsule (20 sources) Antiarrhythmic, Uncompetitive T-hjhkym-I-aspartat e Receptor Antagonist, Cytochrome P450 2D6 Inhibitor, Sigma-1 Agonist Start: 09-27-2023 take 1 capsule by mouth every twelve hours NUEDEXTA 20-10 mg capsule Take 1 capsule by mouth every 12 hours. 09/27/2023 Active Start: 05-14-2023 take 1 capsule by [facility] twice daily Nuedexta 20-10 MG capsule Take 1 capsule by mouth 2 times daily. 05/14/2023 Active Comment on above: Take 1 capsule by [facility] every 12 hours. estrogens, esterified (half-way) 0.625 mg / methylTESTOSTERone 1.25 mg oral tablet (20 sources) Androgen Start: 11-21-2017 esterified estrogens-methylTESTO STERone (ESTRATEST HS) 0.625-1.25 mg per tablet 11/21/2017 Active Start: 09-19-2017 End: 07-08-2022 take 1 tablet by mouth once daily Estrogens-Methyltestosterone Active 1 TA BLET PO DAILY July 08, 2022 10:56am Start: 01-24-1996 End: 05-21-2024 estrogens, conjugated,-methy lTESTOSTERone (Estratest HS) 0.625-1.25 MG tablet Every 24 hours. 01/24/1996 05/21/2024 Discontinued (Med list cleanup) fluticasone propionate 0.05 mg/actuat metered dose nasal spray (20 sources) Corticosteroid Start: 11-18-2018 fluticasone (FLONASE) 50 mcg/actuation nasal spray Fluticasone Propionate Active 1 SPRAY INTRANASAL DAILY November 18, 2018 1:22pm 11/18/2018 Active Comment on above: Fluticasone Propiona te Active 1 SPRAY INTRANASAL DAILY November 18, 2018 1:22pm folic acid 0.8 mg oral tablet (20 sources) Start: 09-19-2017 folic acid 800 mcg tablet every day 09/19/2017 Active Comment on above: every day gabapentin 100 mg oral capsule (20 sources) Anti-epileptic Agent Start: 09-27-2023 End: 08-09-2024 take 1 capsule by mouth three times daily gabapentin (NEURONTIN) 100 mg capsule Take 1 capsule by mouth three times a day for 180 days. 90 capsule 5 02/11/2024 Active Start: 04-17-2022 take 100 mg by mouth twice daily Gabapentin Active 100 MG PO TWICE A DAY April 16, 2022 11:00pm Start: 01-23-2021 End: 02-13-2021 take 100 mg by mouth three times daily Gabapentin Discontinued 100 MG PO THREE TIMES A DAY January 22, 2021 11:00pm February 13, 2021 7:18am Comment on above: Take 100 mg by mouth three times a day. Handicap Placard (10 sources) Start: 07-27-[address] Active 0 .ROUTE .MEDSUPPLY July 27, 2021 10:06am As directed, length of time 3 years Start: 07-27-[address] Active 0 .ROUTE .MEDSUPPLY July 27, 2021 12:00am As directed, length of time 3 years Start: 07-27-[address] Active 0 .ROUTE .MEDSUPPLY July 27, 2021 1:00am As directed, length of time 3 years hydroCHLOROthiazide 25 mg / triamterene 37.5 mg oral tablet (20 sources) Potassium-sparing Diuretic, Thiazide Diuretic Start: 01-14-2023 take 1 tablet by mouth once daily in the morning triamterene-hydrochlorothiazide (Maxzide-25) 37.5-25 MG tablet Take 1 tablet by mouth every morning. 01/14/2023 Active Comment on above: Take 1 tablet by lynda th every morning. hydrocortisone 25 mg/ml topical cream (20 sources) Corticosteroid Start: 09-13-2019 Hydrocortisone Active 1 APPL IC TOPICAL TWICE A DAY September 13, 2019 12:00am Start: 04-08-2019 hydrocortisone 2.5 % ointment 04/08/2019 Active Start: 04-08-2019 End: 09-13-2019 Hydrocortisone Discontinued 1 APPLIC TOPICAL DAILY 28.35 April 07, 2019 11:00pm September 13, 2019 11:07am linaclotide 0.072 mg oral capsule (3 sources) Guanylate Cyclase-C Agonist Start: 03-10-2019 take 1 capsule by mouth once daily as needed LINZESS 72 MCG CAPS capsule Take 72 mcg by mouth daily as needed 0 03/10/2019 Active End: 10-08-2023 linaclotide (LINZESS) 145 mc g cap Take by mouth as needed. 0 10/08/2023 Discontinued Comment on above: Take by mouth as nee ded. liothyronine sodium 0.005 mg oral tablet (10 sources) l-Triiodothyronine Start: 08-03-20 take 1 tablet by mouth once daily Liothyronine (Cytomel) 5 mcg tablet Active 10 MCG PO DAILY August 03, 2019 12:00am miconazole nitrate 20 mg/ml topical cream (20 sources) Azole Antifungal miconazole (MONISTAT-DERM,ROSEMARY) 2 % cream As directed. Active Comment on above: As directed. modafinil 200 mg oral tablet (20 sources) Sympathomimetic-like Agent Start: 08-16-20 End: 02-11-20 24 take 1 tablet by mouth in the morning modafinil (Provigil) 200 MG tablet TAKE 1 TABLET BY MOUTH IN THE MORNING FOR 30 DAYS 01/16/2023 Active mupirocin 0.02 mg/mg topical ointment (4 sources) RNA Synthetase Inhibitor Antibacterial Start: 05-08-20 Mupirocin Active 1 APPLIC TOPICAL THREE TIMES A DAY May 07, 2022 11:00pm nicotine 2 mg chewing gum (1 source) Cholinergic Nicotinic Agonist nicotine polacrilex (NICORETTE) 2 MG gum Take 2 mg by mouth as needed for Smoking cessation 0 Active nystatin 100 unt/mg topical powder (20 sources) Polyene Antifungal Start: 04-08-20 19 nystatin (MYCOSTATIN) powder Apply to affected area twice daily. 0 04/08/2019 Active Start: 04-08-2019 End: 04-17-2022 Nystatin Discontinued 1 APPL IC TOPICAL TWICE A DAY 60 April 07, 2019 11:00pm April 17, 2022 9:43am Comment on above: Apply to affected ar ea twice daily. oxymetazoline hydrochloride 0.5 mg/ml nasal spray (1 source) oxymetazoline (N JAYLYN DECONGESTANT SPRAY) 0.05 % nasal spray 2 sprays by Nasal route daily 0 Active polyethylene glycol 3350 09285 mg powder for oral solution (10 sources) Osmotic Laxative Start: 09-13-19 Polyethylene Glycol 3350 (Miralax) 17 gram/dose powder Active 17 GM PO DAILY September 13, 2019 12:00am triamcinolone acetonide 0.055 mg/actuat metered dose nasal spray (10 sources) Corticosteroid Start: 04-08-20 19 Triamcinolone Acetonide (Nasacort) 55 mcg aerosol,spray Active 1 SPRAY INTRANASAL DAILY April 07, 2019 11:00pm vibegron (GEMTESA) 75 mg tablet (6 sources) Start: 03-21-20 take 1 tablet by mouth once daily vibegron (GEMTESA) 75 mg tablet Indications: OAB (overactive bladder) take 1 tablet by mouth every day 90 tablet 3 03/21/2024 Active Completed/Discontinued Medications Medication Drug Class(es) Dates Sig (Normalized) Sig (Original) [id number] 200 actuat albuterol 0.09 mg/actuat metered dose inhaler (20 sources) beta2-Adrenergic Agonist Start: 01-16-2022 take 1 puff(s) by inhalation every six hours Albuterol Sulfate (Proair Hfa) 90 mcg/actuation HFA aerosol inhaler Active 1 - 2 PUFF INHALATION EVERY 6 HOURS 8.5 January 16, 2022 2:53pm Start: 06-01-2019 End: 04-30-2022 take 1 puff(s) by inhalation every six hours Albuterol Sulfate (Proair Hfa) 90 mcg/actuation HFA aerosol inhaler Discontinued 1 - 2 PUFF INHALATION EVERY 6 HOURS 8.5 January 16, 2022 1:53pm April 30, 2022 8:06am Start: 09-19-2017 albuterol HFA (PROVENTIL HFA, VENTOLIN HFA) 90 mcg/actuation inhaler albuterol 90 mcg/actuation aerosol inhaler albuterol 90 mcg/actuation aerosol inhaler 1 PUFF INHALATION NEEDED PRN For Sob &/Or Wheezing September 19, 2017 Active 09-19-2017 [facility] ([id number]) 09/19/2017 Active albuterol (PROVE NTIL) (2.5 MG/3ML) 0.083% nebulizer solution Inhale 2.5 mg into the lungs 0 Active Comment on above: albuterol 90 mcg/act uation aerosol inhaler albuterol 90 mcg/actuation aerosol inhaler 1 PUFF INHALATION NEEDED PRN For Sob &/Or Wheezing September 19, 2017 Active 09-19-2017 [facility] ([id number]) albuterol 90 mcg/actuation aerosol inhaler (10 sources) Start: 09-19-2017 End: 07-06-2019 albuterol 90 mcg/actuation aerosol inhaler Discontinued 1 PUFF INHALATION NEEDED September 19, 2017 9:54am July 06, 2019 9:17am Start: 09-19-2017 End: 07-06-2019 albuterol 90 mcg/actuation a erosol inhaler Discontinued 1 PUFF INHALATION NEEDED September 19, 2017 12:00am July 06, 2019 8:17am Start: 09-19-2017 End: 07-06-2019 albuterol 90 mcg/actuation a erosol inhaler Discontinued 1 PUFF INHALATION NEEDED September 19, 2017 1:00am July 06, 2019 9:17am amoxicillin 875 mg / clavulanate 125 mg oral tablet (20 sources) Penicillin-class Antibacterial Start: 12-07-2019 End: 12-13-2020 take 1 tablet by mouth every twelve hours Amoxicillin-Pot Clavulanate Discontinued 1 TABLET PO Q12H December 06, 2019 11:00pm December 13, 2020 9:38am Start: 02-23-2019 End: 04-08-2019 take 1 tablet by mouth every twelve hours Amoxicillin-Pot Clavulanate Discontinued 1 TABLET PO Q12H February 22, 2019 11:00pm April 08, 2019 1:08pm biotin 1 mg chewable tablet (13 sources) Start: 09-19-2017 End: 10-08-2023 biotin 1,000 mcg chew Start: 09-19-2017 take 2000 ug by mout h once daily Biotin Active 2000 MCG PO DAILY September 19, 2017 12:00am End: 10-08-2023 biotin 1 mg cap Take by mout h. 0 10/08/2023 Discontinued Comment on above: Take by mouth. bismuth subsalicylate 262 mg chewable tablet (1 source) Bismuth Start: 01-14-20 End: 10-08-19 bismuth subsalicylate (PEPTO-BISMOL) 262 mg chew Indications: Helicobacter pylori infection CHEW (not swallow) 2 tablets 4 times daily, followed by a full glass of water 112 tablet 0 01/13/2018 10/08/2023 Discontinued Comment on above: CHEW (not swallow) 2 tablets 4 times daily, followed by a full glass of water onabotulinumtoxina 100 unt injection (20 sources) Acetylcholine Release Inhibitor Start: 02-19-20 End: 02-19-20 onabotulinumtoxinA (Botox) injection 300 Units Start: 02-18-2025 End: 02-18-2025 inject 300 [IU] by intramuscular injection once 300 Units, IntraMUSCular, Once, On Fri02/18/25 at 0915, For 1 dose Start: 02-18-2025 End: 02-18-2025 onabotulinumtoxinA (Botox) i njection 300 Units Start: 02-18-2025 End: 02-18-2025 inject 300 [IU] by intramuscular injection once 300 Units, IntraMUSCular, Once, On Fri02/18/25 at 0915, For 1 dose Start: 11-19-2024 End: 11-19-2024 onabotulinumtoxinA (Botox) i njection 300 Units Start: 11-19-2024 End: 11-19-2024 inject 300 [IU] by intramuscular injection once 300 Units, IntraMUSCular, Once, On Fri11/19/24 at 0900, For 1 dose Start: 08-20-2024 End: 08-20-2024 onabotulinumtoxinA (Botox) i njection 300 Units Start: 08-20-2024 End: 08-20-2024 inject 300 [IU] by intramuscular injection once 300 Units, IntraMUSCular, Once, On Fri08/20/24 at 0900, For 1 dose Start: 05-21-2024 End: 05-21-2024 onabotulinumtoxinA (Botox) i njection 300 Units Start: 05-21-2024 End: 05-21-2024 inject 300 [IU] by intramuscular injection once 300 Units, IntraMUSCular, Once, On Fri05/21/24 at 0945, For 1 dose Start: 04-01-2024 End: 04-01-2024 onabotulinum toxin type A 20 0 Units injection (BOTOX) Start: 02-20-2024 End: 02-20-2024 onabotulinumtoxinA (Botox) i njection 300 Units Start: 02-20-2024 End: 02-20-2024 inject 300 [IU] by intramuscular injection once 300 Units, IntraMUSCular, Once, On Fri02/20/24 at 0830, For 1 dose Start: 01-08-2024 End: 02-07-2024 onabotulinum toxin type A 10 0 Units injection (BOTOX) Start: 11-21-2023 End: 11-21-2023 onabotulinumtoxinA (Botox) i njection 300 Units Start: 08-21-2023 End: 08-21-2023 onabotulinumtoxinA (Botox) i njection 300 Units Start: 05-21-2023 End: 05-21-2023 onabotulinumtoxinA (Botox) i njection 300 Units Start: 05-21-2023 End: 05-21-2023 onabotulinumtoxinA (Botox) i njection 300 Units Start: 02-18-2023 End: 02-18-2023 onabotulinumtoxinA (Botox) i njection 200 Units celecoxib 200 mg oral capsule (20 sources) Nonsteroidal Anti-inflammatory Drug Start: 12-22-2022 End: 02-22-2024 take 1 capsule by mouth once daily celecoxib (CeleBREX) 200 MG capsule TAKE 1 ORAL EVERY DAY FOR 28 DAYS 12/22/2022 02/22/2024 Discontinued (Therapy completed) Start: 03-14-2021 Celecoxib Acti ve EACH PO March 13, 2021 11:00pm cholecalciferol 0.125 mg oral capsule (20 sources) Vitamin D Start: 12-24-2022 End: 02-22-2024 take 1 capsule by mouth once daily cholecalciferol (Vitamin D-3) 125 MCG (5000 UT) capsule TAKE 1 CAPSULE BY MOUTH EVERY DAY FOR 90 DAYS 12/24/2022 02/22/2024 Discontinued (Therapy completed) Start: 11-18-2018 End: 03-14-2021 take 5000 [IU] by mouth once daily Cholecalciferol (Vitamin D3) Discontinued 5000 UNIT PO daily August 04, 2020 11:54am December 20, 2020 2:37pm Start: 11-21-2017 VITAMIN D-3 2, 000 unit cap 5,000 Units. 11/21/2017 Active Start: 09-19-2017 End: 11-18-2018 take 2000 [IU] by mouth once daily Cholecalciferol (Vitamin D3) Discontinued 2000 UNIT PO daily September 19, 2017 12:00am November 18, 2018 1:02pm Comment on above: 5,000 Units. doxycycline monohydrate 100 mg oral capsule (10 sources) Tetracycline-class Drug Start: 04-04-2018 End: 09-21-2018 take 100 mg by mouth twice daily Doxycycline Monohydrate Discontinued 100 MG PO TWICE A DAY April 03, 2018 11:00pm September 21, 2018 11:04am Dulaglutide (20 sources) GLP-1 Receptor Agonist Start: 02-08-2022 End: 04-17-2022 Dulaglutide (Trulicity) 3 mg/0.5 mL pen injector Discontinued 3 MG SC EVERY WEEK February 07, 2022 11:00pm April 17, 2022 9:43am Start: 02-08-2022 End: 04-17-2022 Dulaglutide (Trulicity) 3 mg /0.5 mL pen injector Discontinued 3 MG SC EVERY WEEK February 08, 2022 12:00am April 17, 2022 10:43am Start: 02-08-2022 Dulaglutide (T rulicity) 3 mg/0.5 mL pen injector Active 3 MG SC EVERY WEEK February 08, 2022 12:00am Start: 06-13-2021 End: 02-08-2022 Dulaglutide (Trulicity) 1.5 mg/0.5 mL pen injector Discontinued 1.5 MG SC EVERY WEEK 2 October 16, 2021 10:00am February 08, 2022 8:46am 1 ml glatiramer acetate 40 mg/ml prefilled syringe (10 sources) Start: 09-19-2017 End: 09-19-2017 Glatiramer (Copaxone) 40 mg/mL syringe Discontinued 40 MG SC .3Xweek September 19, 2017 12:00am September 19, 2017 2:26pm iv contrast (will be provided with radiology test) (3 sources) Start: 02-11-2024 End: 02-12-2024 inject 1 dose intravenously once iv contrast (will be provided with radiology test) MRI Brain Inject, intravenously, once for 1 dose.No IV access, insert saline lock prior to beginning of sedation, infusion, injection of imaging exam.Discontinue saline lock post exam. If Pt. has a central line or IVAD, may access for administration according to line specific nursing protocol.Once exam is complete flush line and de-access according to line specific nursing protocol in the MR contrast administration guidelines link 1 Each 0 02/11/2024 02/12/2024 Start: 02-11-2024 End: 02-12-2024 iv contrast (will be provide d with radiology test) MRI CSP Inject, intravenously, once for 1 dose. No IV access, insert saline lock prior to the beginning of sedation, infusion, injection of imaging exam. Discontinue saline lock post exam. If Pt. has a central line or IVAD, may access for administration according to line specific nursing protocol. Once exam is complete flush line and de-access according to line specific nursing protocol in the MR contrast administration guidelines link. 1 Each 0 02/11/2024 02/12/2024 Start: 02-11-2024 End: 02-12-2024 inject 1 dose intravenously once iv contrast (will be provided with radiology test) MRI TSP Inject, intravenously, once for 1 dose. No IV access, insert saline lock prior to the beginning of sedation, infusion, injection of imaging exam. Discontinue saline lock post exam. If Pt. has a central line or IVAD, may access for administration according to line specific nursing protocol. Once exam is complete flush line and de-access according to line specific nursing protocol in the MR contrast administration guidelines link. 1 Each 0 02/11/2024 02/12/2024 levothyroxine sodium 0.088 mg oral tablet (20 sources) l-Thyroxine Start: 01-25-2021 End: 04-02-2021 take 88 ug by mouth once daily Levothyroxine Discontinued 88 MCG PO DAILY@0600 90 March 14, 2021 10:30am April 02, 2021 11:18am Start: 09-19-2017 End: 03-21-2024 take 1 tablet by mouth once daily Levothyroxine (Synthroid) 75 mcg tablet Discontinued 75 MCG PO DAILY September 19, 2017 12:00am January 25, 2021 10:03am levothyroxine (S ynthroid, Levoxyl) 88 MCG tablet Every 24 hours. Active Comment on above: Take 75 mcg by mouth daily before breakfast. 3 ml liraglutide 6 mg/ml pen injector (20 sources) GLP-1 Receptor Agonist Start: 03-09-2019 VICTOZA 18 MG/3ML SOPN SC injection Indications: special instructions per curriculum director 3 mg Indications: special instructions per curriculum director 0 03/09/2019 Active Start: 09-19-2017 End: 05-22-2024 inject 1.8 mg by subcutaneous injection once daily liraglutide (VICTOZA) 0.6 mg/ 0.1 ml subcutaneous pen injector inject 1.8 milligram subcutaneously daily 09/19/2017 Active Comment on above: inject 1.8 milligram subcutaneously daily losartan potassium 50 mg oral tablet (20 sources) Angiotensin 2 Receptor Javon Start: 3 End: 4 take 1 tablet by mouth once losartan (COZAAR) 50 mg tablet Take 1 tablet by mouth every afternoon. 0 08/11/2023 03/21/2024 Discontinued Start: 12-01-2022 End: 03-10-2024 take 1 tablet by mouth once daily losartan (Cozaar) 25 MG tablet Take 25 mg by mouth daily. 12/01/2022 03/10/2024 Discontinued (Therapy completed) Start: 06-22-2019 End: 09-13-2019 take 25 mg by mouth once daily Losartan Discontinued 2 5 MG PO DAILY 90 August 24, 2019 8:50am September 13, 2019 11:08am Comment on above: Take 1 tablet by lynda th every afternoon. 24 hr mirabegron 50 mg extended release oral tablet (7 sources) beta3-Adrenergic Agonist Start: 4 End: 4 take 1 tablet by mouth once daily mirabegron (MYRBETRIQ) 50 mg Tb24 Take 1 tablet by mouth once daily. 90 tablet 3 10/27/2023 10/31/2023 Discontinued Start: 07-22-2023 End: 10-24-2023 take 1 tablet by mouth once daily mirabegron (MYRBETRIQ) 50 mg Tb24 Take 1 tablet by mouth once daily. 0 07/22/2023 10/24/2023 Discontinued Comment on above: Take 1 tablet by lynda once daily. 15 ml natalizumab 20 mg/ml injection (13 sources) Integrin Receptor Antagonist Start: 09-13-2019 End: 08-21-2023 Natalizumab (Tysabri) 300 mg/15 mL solution Discontinued 300 MG IV EVERY MONTH September 13, 2019 12:00am February 13, 2021 7:17am iv infusion 1 x q month 10 ml ocrelizumab 30 mg/ml injection (12 sources) Start: 09-19-2017 End: 10-08-2023 ocrelizumab (OCREVUS) 30 mg/mL soln injection .6 mo 0 09/19/2017 10/08/2023 Discontinued Start: 09-19-2017 ocrelizumab (O CREVUS) 300 MG/10ML SOLN injection Infuse 600 mg intravenously every 6 months 0 09/19/2017 Active Start: 09-19-2017 End: 07-06-2019 Ocrelizumab (Ocrevus) 30 mg/ mL solution Discontinued 600 MG .Route .6 mo September 19, 2017 12:00am July 06, 2019 8:18am .6 mo 600 mg Comment on above: .6 mo omeprazole 40 mg delayed release oral capsule (1 source) Proton Pump Inhibitor Start: 12-31-19 End: 10-08-19 take 1 capsule by mouth once daily Omeprazole 40 mg capsule Indications: gastroesophageal reflux disease , heartburn Take 1 capsule by mouth once daily. 90 capsule 3 12/30/2017 10/08/2023 Discontinued Comment on above: Take 1 capsule by [facility] once daily. oxybutynin chloride 5 mg oral tablet (20 sources) Cholinergic Muscarinic Antagonist Start: 02-16-20 End: 04-17-20 take 5 mg by mouth at bedtime Oxybutynin Chloride Discontinued 5 MG PO AT BEDTIME April 13, 2021 1:23pm April 17, 2022 9:43am rosuvastatin 10 mg oral capsule (10 sources) HMG-CoA Reductase Inhibitor Start: 01-26-20 End: 02-14-20 take 10 mg by mouth once daily Rosuvastatin Discontinued 10 MG PO DAILY January 24, 2021 11:00pm February 13, 2021 7:18am sertraline 100 mg oral tablet (20 sources) Serotonin Reuptake Inhibitor Start: 08-03-20 End: 05-08-20 take 200 mg by mouth once daily Sertraline Discontinued 200 MG PO daily 180 December 23, 2019 9:41am December 13, 2020 10:34am Start: 09-19-2017 End: 08-03-2019 take 100 mg by mouth once daily Sertraline Discontinued 100 MG PO daily 90 March 31, 2019 7:15am August 03, 2019 8:58am End: 10-08-2023 SERTRALINE HCL (ZOLOFT ORAL) Take by mouth. 0 10/08/2023 Discontinued Comment on above: Take by mouth. sulfamethoxazole 800 mg / trimethoprim 160 mg oral tablet (10 sources) Dihydrofolate Reductase Inhibitor Antibacterial, Sulfonamide Antimicrobial Start: 02-16-20 End: 02-23-20 take 1 tablet by mouth every twelve hours Sulfamethoxazole-Tr imethoprim (Bactrim Ds) 800-160 mg tablet Discontinued 1 TABLET PO Q12H 14 7 February 14, 2019 11:00pm February 21, 2019 11:07pm topiramate 50 mg oral tablet (10 sources) Start: 12-21-19 End: 04-17-20 22 take 1 tablet by mouth twice daily Topiramate (Topamax) 50 mg tablet Discontinued 50 MG PO TWICE A DAY December 19, 2020 11:00pm April 17, 2022 9:44am vibegron (GEMTESA) 75 mg tablet (15 sources) Start: 11-03-19 End: 03-21-20 24 take 1 tablet by mouth once daily vibegron (GEMTESA) 75 mg tablet Take 1 tablet by mouth once daily. 30 tablet 5 11/03/2023 03/21/2024 Discontinued Start: 11-03-2023 take 1 tablet by lynda th once daily vibegron (GEMTESA) 75 mg tablet Take 1 tablet by mouth once daily. 30 tablet 5 11/03/2023 Active Start: 10-31-2023 take 1 tablet by lynda th once daily vibegron (GEMTESA) 75 mg tablet Take 1 tablet by mouth once daily. 30 tablet 2 10/31/2023 Active Comment on above: Take 1 tablet by lynda th once daily. vitamin b12 1 mg/ml injectable solution (20 sources) Vitamin B12 Start: 09-13-19 End: 09-13-19 inject 100 ug by intramuscular injection once cyanocobalamin (vitamin B-12) 1,000 mcg/mL injection solution Discontinued 100 MCG IM ONCE September 13, 2019 11:53am September 13, 2019 12:52pm Start: 08-24-2019 End: 08-24-2019 inject 100 ug by intramuscular injection once cyanocobalamin (vitamin B-12) 1,000 mcg/mL injection solution Discontinued 100 MCG IM ONCE August 24, 2019 9:08am August 24, 2019 9:45am Start: 09-21-2018 Cyanocobalamin (Vitamin B-12) Active 1000 MCG IM PATEL 4 September 21, 2018 12:00am End: 03-21-2024 cyanocobalamin, vitamin B-12 , 1,000 mcg/mL kit Inject as directed once a week. 0 03/21/2024 Discontinued cyanocobalamin 1 000 MCG/ML injection Indications: friday Inject 1,000 mcg into the muscle once Indications: friday 0 Active Comment on above: Inject as directed o nce a week. Problems Active Problems Problem Classification Problem Date Documented Da te Episodic/Chronic Acute bronchitis (10 sources) Acute bronchitis; Translations: [Acute bronchitis, unspecified] Episodic Anxiety disorders (1 source) Post-traumatic stress disorder, unspecified; Translations: [Post-traumatic stress disorder, unspecified] Onset: 5 Chronic Asthma (10 sources) Asthma; Translations: [Unspecified asthma, uncomplicated] Chronic Chronic kidney disease (1 source) Chronic kidney disease; Translations: [Chronic kidney disease, stage 3 unspecified] Onset: 4 Diabetes mellitus with complications (1 source) Type 2 diabetes mellitus with diabetic chronic kidney disease; Translations: [Type 2 diabetes mellitus with diabetic chronic kidney disease] Onset: 5 Chronic Diabetes mellitus without complication (10 sources) Type 2 diabetes mellitus; Translations: [Type 2 diabetes mellitus without complications] Chronic Esophageal disorders (20 sources) Gastroesophageal reflux disease; Translations: [Gastro-esophageal reflux disease without esophagitis] Onset: 8 12-02-2017 Chronic Essential hypertension (18 sources) Essential hypertension; Translations: [Essential (primary) hypertension] Chronic Genitourinary symptoms and ill-defined conditions (20 sources) Mixed urinary incontinence; Translations: [Urinary incontinence] Onset: 9 04-07-2019 Chronic Genitourinary symptoms and ill-defined conditions (2 sources) Urinary symptoms ; Translations: [Unspecified symptoms and signs involving the genitourinary system] Onset: 4 08-03-2024 Episodic Malaise and fatigue (11 sources) Fatigue; Translations: [Other fatigue] Episodic Mood disorders (12 sources) Depressive disorder; Translations: [Depression] Onset: 5 Chronic Multiple sclerosis (20 sources) Multiple sclerosis; Translations: [Multiple sclerosis] Onset: 6 Chronic Nonspecific chest pain (20 sources) Chest pain; Translations: [Chest pain, unspecified] Episodic Nutritional deficiencies (10 sources) Vitamin D deficiency; Translations: [Vitamin D deficiency, unspecified] Chronic Osteoarthritis (2 sources) Primary osteoarthritis, right shoulder; Translations: [Unspecified osteoarthritis, unspecified site] Onset: 3 Chronic Other aftercare (1 source) Patient encounter status; 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] 10-24-2023 Episodic Other connective tissue disease (4 sources) Foot pain; Translations: [Pain in right foot] Episodic Other connective tissue disease (4 sources) Pain in right foot; Translations: [Pain in limb] Episodic Other connective tissue disease (3 sources) Spasticity; Translations: [Cramp and spasm] 02-18-2023 Episodic Other diseases of bladder and urethra (7 sources) Neurogenic dysfunction of the urinary bladder; Translations: [Neuromuscular dysfunction of bladder, unspecified] Onset: 4 01-08-2024 Chronic Other diseases of bladder and urethra (3 sources) Overactive bladder; Translations: [Overactive bladder] 01-08-2024 Chronic Other diseases of bladder and urethra (1 source) Neuromuscular dysfunction of bladder, unspecified; Translations: [Neurogenic dysfunction of the urinary bladder] Onset: 4 Chronic Other diseases of bladder and urethra (1 source) Overactive bladder; Translations: [OAB (overactive bladder)] Onset: 4 Chronic Other gastrointestinal disorders (20 sources) Irritable bowel syndrome; Translations: [Irritable bowel syndrome without diarrhea] Onset: 8 12-02-2017 Chronic Other lower respiratory disease (10 sources) H/O: pneumonia; Translations: [Personal history of pneumonia (recurrent)] Episodic Other nervous system disorders (1 source) Other chronic pain; Translations: [Other chronic pain] Onset: 5 Chronic Other screening for suspected conditions (not mental disorders or infectious disease) (20 sources) Radiology result abnormal; Translations: [Abnormal findings on diagnostic imaging of other specified body structures] Onset: 7 12-02-2017 Chronic Paralysis (20 sources) Spastic diplegia; 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] Onset: 3 01-28-2023 Chronic Prolapse of female genital organs (20 sources) Herniation of rectum into vagina; Translations: [Midline cystocele] Onset: 9 04-07-2019 Chronic Residual codes; unclassified (10 sources) Hypersomnia; Translations: [Hypersomnia, unspecified] Chronic Residual codes; unclassified (1 source) Hypersomnia, unspecified; Translations: [Hypersomnia, unspecified] Chronic Residual codes; unclassified (4 sources) Obstructive sleep apnea syndrome; Translations: [Obstructive sleep apnea (adult) (pediatric)] Chronic Residual codes; unclassified (6 sources) Obstructive sleep apnea (adult) (pediatric); Translations: [Obstructive sleep apnea (adult)(pediatric)] Chronic Skin and subcutaneous tissue infections (14 sources) Abscess of groin; Translations: [Cutaneous abscess of groin] Episodic Spondylosis; intervertebral disc disorders; other back problems (20 sources) Chronic back pain ; Translations: [Dorsalgia, unspecified] Onset: 4 10-08-2023 Episodic Thyroid disorders (11 sources) Hypothyroidism; Translations: [Hypothyroidism, unspecified] Onset: 4 Chronic Unclassified (1 source) New Patient Onset: 4 Unclassified (2 sources) Procedure; Translations: [Procedure] Onset: 5 Past or Other Problems Problem Classification Problem Date Documented Da te Episodic/Chronic Abdominal pain (20 sources) Left lower quadrant pain; Translations: [Left lower quadrant pain] Onset: 06-01-2017 12-02-2017 Episodic Cardiac dysrhythmias (20 sources) Bradycardia; Translations: [Bradycardia, unspecified] Onset: 11-05-2017 12-02-2017 Episodic Conditions associated with dizziness or vertigo (20 sources) Dizziness and giddiness; Translations: [Dizziness and giddiness] Onset: 10-29-2017 12-02-2017 Episodic Hemorrhoids (20 sources) Hemorrhoids; Translations: [Unspecified hemorrhoids] Onset: 04-19-2019 04-19-2019 Episodic Other aftercare (1 source) Encounter for other specified surgical aftercare; Translations: [ENC OTHER SPEC SURGICAL AFTERCARE] Onset: 03-24-2023 Episodic Other and unspecified benign neoplasm (20 sources) Adrenal adenoma; Translations: [Benign neoplasm of unspecified adrenal gland] Onset: 12-10-2015 12-10-2015 Episodic Other and unspecified benign neoplasm (20 sources) History of polyp of colon; Translations: [...] Translations: [ENTHESOPATHY UNSPECIFIED] Onset: 01-14-2023 Episodic Other gastrointestinal disorders (20 sources) Swelling; Translations: [Other intra-abdominal and pelvic swelling, mass and lump] Onset: 06-01-2017 12-02-2017 Episodic Other injuries and conditions due to external causes (1 source) Other injury of unspecified body region, initial encounter; Translations: [Other injury of unspecified body region, initial encounter] Onset: 08-05-2024 Episodic Other non-traumatic joint disorders (3 sources) Pain in right shoulder; Translations: [PAIN IN RIGHT SHOULDER] Onset: 03-19-2023 Episodic Other non-traumatic joint disorders (1 source) Stiffness of right shoulder, not elsewhere classified; Translations: [STIFFNESS RIGHT SHOULDER NEC] Onset: 03-24-2023 Episodic Other screening for suspected conditions (not mental disorders or infectious disease) (20 sources) Cardiovascular stress test abnormal; Translations: [Abnormal result of other cardiovascular function study] Onset: 09-03-2017 12-02-2017 Episodic Screening and history of mental health and substance abuse codes (1 source) Personal history of nicotine dependence; Translations: [PERSONAL HISTORY OF NICOTINE DEPEND] Onset: 03-02-2023 Episodic Sprains and strains (3 sources) Superior glenoid labrum lesion of right shoulder, initial encounter; Translations: [Strain of other muscles, fascia and tendons at shoulder and upper arm level, right arm, initial encounter] Onset: 01-14-2023 Episodic Substance-related disorders (1 source) Cannabis use, unspecified, uncomplicated; Translations: [CANNABIS USE UNS UNCOMPLICATED] Onset: 03-02-2023 Episodic Syncope (2 sources) Loss of consciousness; Translations: [Syncope and collapse] Onset: 12-16-2023 11-21-2023 Episodic Results Test Name Value Interpretation Reference Range Facility Inital Evaluation (1) - PT 02-21-2025 Inital Evaluation (1) - [facility] [address] [place] [address] [address] [place] [address] / REHABILITATION SERVICES INITIAL EVALUATION MR#: [id number] Acct: [id number] Name: SARIKA AVILA Rep #: [id number] : 1970 54 From: Allan Tejeda DPT, VIVIEN, CSCS Referring Dr.: Dr. Dina Wu MD Status: REG R Insurance: [facility] SELF PAY INSURANCE Patient's Visit Information Visit Information Visit Information: SARIKA AVILA is a 54 year old F referred to Physical Therapy by Dr. Dina Wu MD with a diagnosis of chronic back pain. Date of Evaluation: 02/21/25 Physical Therapist: Allan Tejeda DPT, VIVIEN, CSCS Visit Plan Frequency: 2x /Week Duration: 4-6 Weeks Plan: 2x/week for 3-6 weeks IE HEP : seated flexion 15x, R HS streetch 30 5x all 3x/day, walk bendiing R knee and safety with ambulation, benefits of using AD which she has, seeking pain management, home safety and future concerns. treat with LB ROM, R LE HS and gastroc streetching progressing to HEP, rollout same, strength core hips and LE to I, possibly wellness program if desired after back moving well. Pt may bring Ad, bracing that she has at home but is reluctant to use and will consider first floor set up , AD, grab bars, walk in shower for futujre mobility. 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 I fell in September and crunched back. had X ray a few months later. X ray was OA. now back hurts worse than before the fall. Mostly back pain and R leg and down leg to toes. Hard to put shoes on due to pain. Intermittent much of time. sleep is hard and it wakes marly up. she is very stiff and spastic from her MS. Is on baclofen and gabapentin. No recent changes. Hard to work if she goes higher dosage. 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 Walking campus and she falls. Fell getting out of chair once and fell walking to car with arms full. Has walker and cane but does not use them much. has forearm crutches. Hobbies include dogs playing but mostly at home. Live with boyfriend, three story with steps with railing, Steps are painful. Avoids laundry as much as she can. Has tub to step over and no hand rails. No regular exercises. Just got a rowing machine and started. Pain LBP, R leg: Pain Intensity (Out of 10): 4 Pain Intensity Range: 3 and 5 Objective Objective: Walks antalgia R into PT I, no bend to R knee and hiking hip and R foot PFed and turned out slightly. [facility] today. R HS max tight and spastic at -40 90 /90 vs -30 On L. Gastrc max tight on R at -10 aROM and -8 PROM vs 2 Df on L. strength ankles 4-/5R and 4/5 L, knees 4/5 B knee flexion and ext. Hi strength abd and ext 3 on R and 3+ on L, flexion 3 + B with contralateral instability seated. Core 3+ flexiona dn ext. sensatio diminished to gross light touch in B distal LE. reflexes 3/3 R LE patella and 2/3 L Lumbar AROM ext is good with pain R side, R SB painful, L is not. flexion is mod limtieed and cannot get toes, feels tight posterior back and leg. - SLR, - slump but vry tight on R. steps are reciprocal up with one rail, desceending is with L only and one rail is safeest. Balance systems seem to be funcitoning with romberg eo and ec , mostly movement of r LE motor control is putting her at risk. Balance/Special Test Scores Oswestry Low Back Score: 29 Goals Goal 1:: reach feet to put on socks and shoes easilya dn without pain Goal Time Frame: 4-6 Weeks Goal 2:: I approrpiate HEP to limit back problems and stretech R LE(and possibly wellness routine ) Goal Time Frame: 4-6 Weeks Goal 3:: sleep without waking due to pain Goal Time Frame: 4-6 Weeks Goal 4:: Walk FGA / without fear Goal Time Frame: 4-6 Weeks Goal 5:: LB pain 75% better and 1/10 at worst Goal Time Frame: 4-6 Weeks Rehabilitation Potential Physical Therapy Diagnosis: stiffness and soreness in Lb and R LE limiting comfortable funciton. Rehabilitation Potential: Fair Anticipated Interventions Patient/Client Instruction: Educate patient on: Condition and Plan of Care For the Purpose of:: To decrease pain, To increase ROM, To improve muscle performance and motor function, To increase tolerance to activity/condition/position and To improve ability of physical actions for home/community/work/leisure Therapeutic Exercise to Include: Strength training, Flexibilty training, Gait and locomotor training, Passive ROM and Active ROM For the Purpose of:: To decrease pain, To increase ROM, To improve nutrient delivery to tissue, To improve muscle performance and motor function and To increase tolerance to activity/condition/position Manual Therapy Techniques to Include: Mobilization, Passive ROM and Soft tissue mobilization For the Purpose of:: To decrease pain, To increase ROM, To improve (more content not included)... Normal [facility] Progress Noteon 02-18-2025 Progress Note Administrations This Visit onabotulinumtoxin A (BOTOX) injection 300 Units Admin Date 02/18/25 Action Given Dose 300 Units Route IntraMUSCular Site Other Administered By Luisito Donovan MD Ordering Provider: Luisito Donovan MD [facility]: [id number] (x3) Lot#: [id number] (x3) Premises Technician: [employer] Patient Supplied? No Normal [facility] L/S Spine Min 4 Viewson 01-23 L/S Spine Min 4 Views [facility] [address] [place], [place] [address] L/S Spine Min 4 Views MR#: [id number] Acct: [id number] Name: SARIKA AVILA Rep #: [id number] : 1970 F 54 From: [place] sanders MD PCP: Dr. Dina Wu MD Status: REG CLI Study: L/S Spine Min 4 Views Date of Exam: 02/09/25 Exam# [id number] Ordering Dr: Dina Wu MD PROCEDURE: L/S SPINE MIN 4 VIEWS 02/09/2025 REASON FOR EXAM: BACK PAIN TECHNIQUE: L/S SPINE MIN 4 VIEWS COMPARISON: None. FINDINGS: Mild degenerative dextroscoliosis apex at L3. Grade 1 anterolisthesis of L5 on S1 secondary to bilateral pars defects. Grade 1 anterolisthesis of L4 on L5 secondary to facet joint arthropathy. Exaggerated lumbar lordosis. There are diffuse spondylotic changes. Findings are demonstrated to by diffuse disc space narrowing, osteophyte formation and degenerative endplate sclerosis. There is diffuse facet joint arthropathy with secondary bilateral neural foramina narrowing. No fracture or dislocation is seen. No aggressive lytic or blastic bony lesion is noted. RAD/L/S Spine Min 4 Views IMPRESSION: Mild degenerative dextroscoliosis apex at L3. Grade 1 anterolisthesis of L5 on S1 secondary to bilateral pars defects. Grade 1 anterolisthesis of L4 on L5 secondary to facet joint arthropathy. Exaggerated lumbar lordosis. Spondylosis. [facility] CC: Dr. Dina Wu MD Wind Turbine Engineer: Signed Normal [facility] MR/BMS.BPon 12-09-2024 MR/BMS.BP [facility] [address], [address] [place] [address] OFFICE VISIT Date of Service: 12/09/24 MR#: [id number] Acct: [id number] Name: SARIKA AVILA Rep #: [id number] : 1970 Provider: Dr. Eddie Tran se, DO Age/Sex: 54/F Location: [facility].BP Status: Signed Intake Vital Signs 10/07/24 08:08 12/03/24 09:20 12/09/24 07:28 12/09/24 07:30 Height 5 ft 3 in 5 ft 3 in 5 ft 3 in Weight: 230 lb 8 oz BMI 40.8 BP 120/78 112/72 Blood Pressure Location Lt brachial Rt brachial Position Sitting Sitting Respiration 16 16 Pulse 75 71 Pulse Source Monitor Monitor Temp 97.6 F L Pulse Oximetry (%) 94 Oxygen Delivery Method room air BP Intake Visit Reasons: 2 M FU Allergies Corticosteroids (Glucocorticoids) (steroids) Allergy (Mild, Verified 12/09/24 07:31) psychosis doxycycline Allergy (Verified 12/09/24 07:31) Vomiting latex Allergy (Verified 12/09/24 07:31) Rash prochlorperazine (From Compazine) Allergy (Verified 12/09/24 07:31) Other garlic Adverse Reaction (Mild, Verified 12/09/24 07:31) vomitting Medications ???Medication ???Instructions ???Recorded ???Confirmed ???Type folic acid 800 mcg tablet 800 mcg PO DAILY 09/19/17 12/09/24 History modafinil 200 mg tablet 200 mg PO DAILY 09/19/17 12/09/24 History triamcinolone acetonide 55 mcg 1 spray intranasal DAILY 04/08/19 12/09/24 History nasal spray aerosol (Nasacort) polyethylene glycol 3350 17 17 g PO DAILY PRN Constipation 12/09/24 History gram/dose oral powder (Miralax) Handicap Placard #1 ea 07/27/21 12/09/24 Rx acyclovir 200 mg capsule 400 mg PO BID 07/27/21 12/09/24 Hi story baclofen 10 mg tablet 10 mg PO .QID 07/27/21 12/09/24 Hi story cladribine(multiple sclerosis) 10 10 mg PO DAILY 10/02/22 12/09/24 History mg tablet (Mavenclad (8 tablet pack)) levothyroxine 88 mcg tablet 88 mcg PO DAILY@0600 #90 tabs 04/03/1612/09/24 Rx dextromethorphan 20 mg-quinidine 1 cap PO Q12H 05/15/23 12/09/24 Hi story 10 mg capsule (Nuedexta) metronidazole 0.75 % topical gel 1 applic topical QHS 05/15/2311/23 History triamterene 37.5 See Rx Instructions .Route 4 12/09/24 Rx mg-hydrochlorothiazide 25 mg tablet .COMPLEX #90 tabs liraglutide 0.6 mg/0.1 mL (18 mg/3 1.8 mg (0.3 mL) subcut Q24H 3 12/09/24 Rx mL) subcutaneous pen injector months #27 mL (Victoza 3-Jian) pen needle, diabetic 32 gauge x #100 ea 08/20/24 12/09/24 Rx 1/4 (BD Ultra-Fine Micro Pen Needle) albuterol sulfate 90 mcg/actuation 1 - 2 puff inhalation Q6H PRN 12/09/24 Rx aerosol inhaler shortness of breath or wheezing #8.5 grams esterified 1 tab PO DAILY #30 tabs 12/03/24 0 12/09/24 Rx estrogens-methyltestosteron e 0.625 mg-1.25 mg tablet bupropion HCl 300 mg 24 hr tablet, 300 mg PO QAM 90 days #90 tabs 0 12/09/24 12/09/24 Rx extended release gabapentin 100 mg capsule 100 mg PO TID 12/09/24 12/09/24 Hi story desvenlafaxine succinate 50 mg See Rx Instructions .Route 5 Rx tablet,extended release 24 hr .COMPLEX #90 tabs PFSH Medical History (Updated 12/03/24 @ 13:[address] Dina Wu MD) Recurrent falls Chronic pain Sprain of left foot Post-menopausal Decreased mobility Left wrist sprain Seizure-like activity Preventative health care CKD (chronic kidney disease), stage III Macrocytosis Syncope Urinary frequency Pseudobulbar affect Rosacea PTSD (post-traumatic stress disorder) Major depressive disorder Chronic constipation Anxiety and depression NATHALIE (obstructive sleep apnea) Right foot pain Fatigue Hypersomnolence Type 2 diabetes mellitus History of left heart catheterization (LHC) ( 01/25/21) Chest pain Chronic back pain Essential (primary) hypertension Urinary urgency Rectocele Obesity (BMI 30-39.9) Low back pain Neuropathy Hormone deficiency GERD (gastroesophageal reflux disease) Pre-diabetes Back problem Asthma Arthritis Anemia Collapse of left lung History of pneumonia Osteopenia Diverticulitis Depression Multiple sclerosis (10/30/16) Hypothyroidism Bradycardia Surgical History Hx of repair of rotator cuff History of rectocele History of bronchoscopy History of tonsillectomy Hx of cholecystectomy History of hysterectomy Family History Mother Alcoholism Anemia Asthma COPD (chronic obstructive pulmonary disease) Arthritis Kidney disease Mental disorder Respiratory abnormality CVA (cerebral vascular accident) Grandfather Angina pectoris Myocardial infarction Grandmother Arthritis Hypertension Osteoporosis CVA (cerebral vascular accident) Sister Crohn disease B (more content not included)... Normal [facility] Internal Medicine Office Vis jair 12-03-2024 Internal Medicine Office Visit [facility] [facility] [place] [address] OFFICE VISIT Date of Service: 12/03/24 MR#: [id number] Acct: [id number] Name: SARIKA AVILA Rep #: [id number] : 1970 Provider: Dr. Dina hadley MD Age/Sex: 54/F Location: [facility].BIM Status: Signed Intake Vital Signs 07/16/24 08:55 10/07/24 08:08 12/03/24 09:20 Height 5 ft 3 in 5 ft 3 in 5 ft 3 in Weight: 230 lb 8 oz BMI 40.8 BP 120/78 Blood Pressure Location Lt brachial Position Sitting Respiration 16 Pulse 75 Pulse Source Monitor Temp 97.6 F L Temp Source Temporal Pulse Oximetry (%) 94 Oxygen Delivery Method room air Intake Visit Reasons: 3 M FU Chief Complaint: 3m f/u Liquid Yeast Supervisor Required: No Accompanied by: Self Is patient in pain?: Yes (lower back d/t falls ) Pain scale (1-10): 6 Pain Scale - Faces (1-5): 5 Allergies Corticosteroids (Glucocorticoids) (steroids) Allergy (Mild, Verified 12/03/24 09:17) psychosis doxycycline Allergy (Verified 12/03/24 09:17) Vomiting latex Allergy (Verified 12/03/24 09:17) Rash prochlorperazine (From Compazine) Allergy (Verified 12/03/24 09:17) Other garlic Adverse Reaction (Mild, Verified 12/03/24 09:17) vomitting Medications ???Medication ???Instructions ???Recorded ???Confirmed ???Type folic acid 800 mcg tablet 800 mcg PO DAILY 09/19/17 12/03/24 History modafinil 200 mg tablet 200 mg PO DAILY 09/19/17 12/03/24 History triamcinolone acetonide 55 mcg 1 spray intranasal DAILY 04/08/19 12/03/24 History nasal spray aerosol (Nasacort) polyethylene glycol 3350 17 17 g PO DAILY PRN Constipation 12/03/24 History gram/dose oral powder (Miralax) Handicap Placard #1 ea 07/27/21 12/03/24 Rx acyclovir 200 mg capsule 400 mg PO BID 07/27/21 12/03/24 Hi story baclofen 10 mg tablet 10 mg PO .QID 07/27/21 12/03/24 Hi story cladribine(multiple sclerosis) 10 10 mg PO DAILY 10/02/22 12/03/24 History mg tablet (Mavenclad (8 tablet pack)) levothyroxine 88 mcg tablet 88 mcg PO DAILY@0600 #90 tabs 04/0 03/1612/03/24 Rx dextromethorphan 20 mg-quinidine 1 cap PO Q12H 05/15/23 12/03/24 Hi story 10 mg capsule (Nuedexta) metronidazole 0.75 % topical gel 1 applic topical QHS 05/15/2311/23 History desvenlafaxine succinate 50 mg See Rx Instructions .Route 4 12/03/24 Rx tablet,extended release 24 hr .COMPLEX #90 tabs triamterene 37.5 See Rx Instructions .Route 4 12/03/24 Rx mg-hydrochlorothiazide 25 mg tablet .COMPLEX #90 tabs liraglutide 0.6 mg/0.1 mL (18 mg/3 1.8 mg (0.3 mL) subcut Q24H 3 12/03/24 Rx mL) subcutaneous pen injector months #27 mL (Victoza 3-Jian) pen needle, diabetic 32 gauge x #100 ea 08/20/24 12/03/24 Rx 1/4 (BD Ultra-Fine Micro Pen Needle) albuterol sulfate 90 mcg/actuation 1 - 2 puff inhalation Q6H PRN 12/03/24 Rx aerosol inhaler shortness of breath or wheezing #8.5 grams bupropion HCl 150 mg 24 hr tablet, 150 mg PO QAM 90 days #90 tabs 0 10/07/24 12/03/24 Rx extended release esterified 1 tab PO DAILY #30 tabs 12/03/24 0 12/03/24 Rx estrogens-methyltestosteron e 0.625 mg-1.25 mg tablet pregabalin 25 mg capsule (Lyrica) 25 mg PO BID 12/03/24 12/03/24 Hi story Have you fallen in the past year?: Yes (3 times in september ) Nurse's Note: needs refills 1 fall is d/t MS 1 fall over dog and 1 fall d/t balancing in chair [facility] Medical History (Updated 12/03/24 @ 13:[address] Dina Wu MD) Recurrent falls Chronic pain Sprain of left foot Post-menopausal Decreased mobility Left wrist sprain Seizure-like activity Preventative health care CKD (chronic kidney disease), stage III Macrocytosis Syncope Urinary frequency Pseudobulbar affect Rosacea PTSD (post-traumatic stress disorder) Major depressive disorder Chronic constipation Anxiety and depression NATHALIE (obstructive sleep apnea) Right foot pain Fatigue Hypersomnolence Type 2 diabetes mellitus History of left heart catheterization (LHC) ( 01/25/21) Chest pain Chronic back pain Essential (primary) hypertension Urinary urgency Rectocele Obesity (BMI 30-39.9) Low back pain Neuropathy Hormone deficiency GERD (gastroesophageal reflux disease) Pre-diabetes Back problem Asthma Arthritis Anemia Collapse of left lung History of pneumonia Osteopenia Diverticulitis Depression Multiple sclerosis (10/30/16) Hypothyroidism Bradycardia Surgical History Hx of repair of rotator cuff History of rectocele History of bronchoscopy History of tonsillectomy Hx of cholecystectomy History of hysterectomy Family History Mother Alcoholism Anemia Asthma (more content not included)... Normal [facility] Progress Noteon 11-19-2024 Progress Note Administrations This Visit onabotulinumtoxin A (BOTOX) injection 200 Units Admin Date 11/19/2024 Action Given Dose 275 Units Route IntraMUSCular Site Other Administered By [facility] Ordering Provider: Luisito Donovan MD [facility]:[id number] [id number] Lot#: [id number] [id number], [id number] Premises Technician: [employer] Patient Supplied?: No, buy & bill Normal [facility] MR/BMS.BPon 10-07-2024 MR/BMS.[address], [address] [place] [address] OFFICE VISIT Date of Service: 10/07/24 MR#: [id number] Acct: [id number] Name: SARIKA AVILA Rep #: [id number] : 1970 Provider: Dr. Eddie Tran se, Age/Sex: 54/F Location: [facility].BP Status: Signed Intake Vital Signs 07/01/24 07:37 10/07/24 08:08 Height 5 ft 1 in 5 ft 3 in Weight: 229 lb BMI 40.5 BP 127/73 H Blood Pressure Location Lt brachial Position Sitting Respiration 16 Pulse 87 Pulse Source Monitor BP Intake Visit Reasons: 3 M FU Accompanied by: Self Allergies Corticosteroids (Glucocorticoids) (steroids) Allergy (Mild, Verified 10/07/24 08:11) psychosis doxycycline Allergy (Verified 10/07/24 08:11) Vomiting latex Allergy (Verified 10/07/24 08:11) Rash prochlorperazine (From Compazine) Allergy (Verified 10/07/24 08:11) Other garlic Adverse Reaction (Mild, Verified 10/07/24 08:11) vomitting Medications ???Medication ???Instructions ???Recorded ???Confirmed ???Type folic acid 800 mcg tablet 800 mcg PO DAILY 09/19/17 10/07/24 History modafinil 200 mg tablet 200 mg PO DAILY 09/19/17 10/07/24 History triamcinolone acetonide 55 mcg 1 spray intranasal DAILY 04/08/19 10/07/24 History nasal spray aerosol (Nasacort) polyethylene glycol 3350 17 17 g PO DAILY PRN Constipation 10/07/24 History gram/dose oral powder (Miralax) Handicap Placard #1 ea 07/27/21 10/07/24 Rx acyclovir 200 mg capsule 400 mg PO BID 07/27/21 10/07/24 Hi story baclofen 10 mg tablet 10 mg PO .QID 07/27/21 10/07/24 Hi story cladribine(multiple sclerosis) 10 10 mg PO DAILY 10/02/22 10/07/24 History mg tablet (Mavenclad (8 tablet pack)) levothyroxine 88 mcg tablet 88 mcg PO DAILY@0600 #90 tabs 04/0 03/1610/07/24 Rx dextromethorphan 20 mg-quinidine 1 cap PO Q12H 05/15/23 10/07/24 Hi story 10 mg capsule (Nuedexta) metronidazole 0.75 % topical gel 1 applic topical QHS 05/15/2309/25 History gabapentin 100 mg capsule mg PO 08/27/23 10/07/24 History desvenlafaxine succinate 50 mg See Rx Instructions .Route 4 10/07/24 Rx tablet,extended release 24 hr .COMPLEX #90 tabs triamterene 37.5 See Rx Instructions .Route 4 10/07/24 Rx mg-hydrochlorothiazide 25 mg tablet .COMPLEX #90 tabs liraglutide 0.6 mg/0.1 mL (18 mg/3 1.8 mg (0.3 mL) subcut Q24H 3 10/07/24 Rx mL) subcutaneous pen injector months #27 mL (Victoza 3-Jian) pen needle, diabetic 32 gauge x #100 ea 08/20/24 10/07/24 Rx 1/4 (BD Ultra-Fine Micro Pen Needle) albuterol sulfate 90 mcg/actuation 1 - 2 puff inhalation Q6H PRN 10/07/24 Rx aerosol inhaler shortness of breath or wheezing #8.5 grams esterified 1 tab PO DAILY #30 tabs 09/13/24 0 10/07/24 Rx estrogens-methyltestosteron e 0.625 mg-1.25 mg tablet bupropion HCl 150 mg 24 hr tablet, 150 mg PO QAM 90 days #90 tabs 0 10/07/24 10/07/24 Rx extended release PFSH Medical History (Updated 07/16/24 @ 10:[address] Dina Wu MD) Chronic pain Sprain of left foot Post-menopausal Decreased mobility Left wrist sprain Seizure-like activity Preventative health care CKD (chronic kidney disease), stage III Macrocytosis Syncope Urinary frequency Pseudobulbar affect Rosacea PTSD (post-traumatic stress disorder) Major depressive disorder Chronic constipation Anxiety and depression NATHALIE (obstructive sleep apnea) Right foot pain Fatigue Hypersomnolence Type 2 diabetes mellitus History of left heart catheterization (LHC) ( 01/25/21) Chest pain Chronic back pain Essential (primary) hypertension Urinary urgency Rectocele Obesity (BMI 30-39.9) Low back pain Neuropathy Hormone deficiency GERD (gastroesophageal reflux disease) Pre-diabetes Back problem Asthma Arthritis Anemia Collapse of left lung History of pneumonia Osteopenia Diverticulitis Depression Multiple sclerosis (10/30/16) Hypothyroidism Bradycardia Surgical History Hx of repair of rotator cuff History of rectocele History of bronchoscopy History of tonsillectomy Hx of cholecystectomy History of hysterectomy Family History Mother Alcoholism Anemia Asthma COPD (chronic obstructive pulmonary disease) Arthritis Kidney disease Mental disorder Respiratory abnormality CVA (cerebral vascular accident) Grandfather Angina pectoris Myocardial infarction Grandmother Arthritis Hypertension Osteoporosis CVA (cerebral vascular accident) Sister Crohn disease Bowel disease Uncle Parkinsons disease Social History Smoking Status: Former smoker quit date: 06/14/21 Tob (more content not included)... Normal [facility] Comprehensive Metabolic Prof ilon 09-20-2024 Albumin [Mass/Vol] 3.8 g/dL Normal 3.2-5.0 [facility] Comment on above: Performed By: #### L 3400.4000, L500.4050, L3300.1000, L509.6000, L801.1541, L3300.1500, L3300.1100 #### [facility] [address] [place], [address] Albumin/Globulin [Mass ratio] 1.1 {ratio} Normal 0.9-2.4 [facility] Comment on above: Performed By: #### L 3400.4000, L500.4050, L3300.1000, L509.6000, L801.1541, L3300.1500, L3300.1100 #### [facility] [address] [place], [address] ALK P 83 U/L Normal 45-117 [facility] Comment on above: Performed By: #### L 3400.4000, L500.4050, L3300.1000, L509.6000, L801.1541, L3300.1500, L3300.1100 #### [facility] [address] [place], [address] ALT [Catalytic activity/Vol] 21 U/L Normal 13-56 [facility] Comment on above: Performed By: #### L 3400.4000, L500.4050, L3300.1000, L509.6000, L801.1541, L3300.1500, L3300.1100 #### [facility] [address] [place], [address] AST [Catalytic activity/Vol] 13 U/L Low 15-37 [facility] Comment on above: Performed By: #### L 3400.4000, L500.4050, L3300.1000, L509.6000, L801.1541, L3300.1500, L3300.1100 #### [facility] [address] [place], [address] Bilirubin [Mass/Vol] 0.40 mg/dL Normal 0.20-1.00 [facility] Comment on above: Result Comment: For patients on eltrombopag therapy, use of Dimension Zillah TBIL is not recommended. Performed By: #### L 3400.4000, L500.4050, L3300.1000, L509.6000, L801.1541, L3300.1500, L3300.1100 #### [facility] [address] [place], [address] BUN/CRE 13.5 RATIO Normal 10-20 [facility] Comment on above: Performed By: #### L 3400.4000, L500.4050, L3300.1000, L509.6000, L801.1541, L3300.1500, L3300.1100 #### [facility] [address] [place], [address] CA,Total 9.6 mg/dL Normal 8.5-10.1 [facility] Comment on above: Performed By: #### L 3400.4000, L500.4050, L3300.1000, L509.6000, L801.1541, L3300.1500, L3300.1100 #### [facility] [address] [place], [address] Chloride [Moles/Vol] 102 mmol/L Normal 98-107 [facility] Comment on above: Performed By: #### L 3400.4000, L500.4050, L3300.1000, L509.6000, L801.1541, L3300.1500, L3300.1100 #### [facility] [address] [place], [address] CO2 [Moles/Vol] 27.0 mmol/L Normal 21.0-32.0 [facility] Comment on above: Performed By: #### L 3400.4000, L500.4050, L3300.1000, L509.6000, L801.1541, L3300.1500, L3300.1100 #### [facility] [address] [place], [address] Creatinine [Mass/Vol] 1.63 mg/dL High 0.55-1.02 [facility] Comment on above: Result Comment: The validity of the calculated GFR GFRAA in patients over 70 years has not been determined. Clinical correlation is essential. Performed By: #### L 3400.4000, L500.4050, L3300.1000, L509.6000, L801.1541, L3300.1500, L3300.1100 #### [facility] [address] [place], [address] EST GFR - AA 42 mL/min Low >60 [facility] Comment on above: Result Comment: Afri can [place] GFR Calc Performed By: #### L 3400.4000, L500.4050, L3300.1000, L509.6000, L801.1541, L3300.1500, L3300.1100 #### [facility] [address] [place], [address] GAP 8 Normal 5-15 [facility] Comment on above: Performed By: #### L 3400.4000, L500.4050, L3300.1000, L509.6000, L801.1541, L3300.1500, L3300.1100 #### [facility] [address] [place], [address] GFR/1.73 sq M.predicted among non-blacks MDRD (S/P/Bld) [Vol rate/Area] 35 mL/min/{1.73_m2} Low >60 [facility] Comment on above: Result Comment: Non- GFR Calc Performed By: #### L 3400.4000, L500.4050, L3300.1000, L509.6000, L801.1541, L3300.1500, L3300.1100 #### [facility] [address] [place], [address] Globulin (S) [Mass/Vol] 3.6 g/dL Normal 2.2-4.2 [facility] Comment on above: Performed By: #### L 3400.4000, L500.4050, L3300.1000, L509.6000, L801.1541, L3300.1500, L3300.1100 #### [facility] [address] [place], [address] Glucose [Mass/Vol] 84 mg/dL Normal 74-106 [facility] Comment on above: Performed By: #### L 3400.4000, L500.4050, L3300.1000, L509.6000, L801.1541, L3300.1500, L3300.1100 #### [facility] [address] [place], [address] Potassium [Moles/Vol] 3.9 mmol/L Normal 3.5-5.1 [facility] Comment on above: Performed By: #### L 3400.4000, L500.4050, L3300.1000, L509.6000, L801.1541, L3300.1500, L3300.1100 #### [facility] [address] [place], [address] Sodium [Moles/Vol] 136 mmol/L Normal 136-145 [facility] Comment on above: Performed By: #### L 3400.4000, L500.4050, L3300.1000, L509.6000, L801.1541, L3300.1500, L3300.1100 #### [facility] [address] [place], [address] T PROT 7.4 g/dL Normal 6.4-8.2 [facility] Comment on above: Performed By: #### L 3400.4000, L500.4050, L3300.1000, L509.6000, L801.1541, L3300.1500, L3300.1100 #### [facility] [address] [place], [address] Urea nitrogen [Mass/Vol] 22 mg/dL High 7-18 [facility] Comment on above: Performed By: #### L 3400.4000, L500.4050, L3300.1000, L509.6000, L801.1541, L3300.1500, L3300.1100 #### [facility] [address] [place], [place], [id number] Free T3on 09-20-2024 Free T3 [Mass/Vol] 2.8 pg/mL Normal 2.18-3.98 [facility] Comment on above: Performed By: #### L 3400.4000, L500.4050, L3300.1000, L509.6000, L801.1541, L3300.1500, L3300.1100 #### [facility] [address] [place], [place], [id number] Hemoglobin A1con 09-20-2024 HbA1c (Bld) [Mass fraction] 5.4 % Normal 3.8-5.6 [facility] Comment on above: Result Comment: Norm al < 5.7 % Prediabetic 5.7 - 6.4 % Diabetic >or= 6.5 % Please note range changes. Performed By: #### L 3400.4000, L500.4050, L3300.1000, L509.6000, L801.1541, L3300.1500, L3300.1100 #### [facility] [address] [place], [address] Microalb:Creat Ratio,Random URon 09-20-2024 Creatinine [Mass/Vol] 125.00 mg/dL Normal NO RAN GE EST. [facility] Comment on above: Performed By: #### L 3400.4000, L500.4050, L3300.1000, L509.6000, L801.1541, L3300.1500, L3300.1100 #### [facility] [address] [place], [place], [id number] MALB:CRE 4.6 mg/g CRE Normal <30 mg/g CRE [facility] Comment on above: Performed By: #### L 3400.4000, L500.4050, L3300.1000, L509.6000, L801.1541, L3300.1500, L3300.1100 #### [facility] [address] [place], [address] MICROALBUMIN,UR 5.8 mg/L Normal NO RANGE EST. [facility] Comment on above: Performed By: #### L 3400.4000, L500.4050, L3300.1000, L509.6000, L801.1541, L3300.1500, L3300.1100 #### [facility] [address] [place], [address] T4 Free Directon 09-20-2024 T4 FREE DIRECT 1.30 ng/dL Normal 0.76-1.46 [facility] Comment on above: Performed By: #### L 3400.4000, L500.4050, L3300.1000, L509.6000, L801.1541, L3300.1500, L3300.1100 #### [facility] [address] [place], [address] Thyroid Stim Hormone (TSH)on 09-20-2024 TSH 0.423 uIU/mL Normal 0.358-3.740 [facility] Comment on above: Performed By: #### L 3400.4000, L500.4050, L3300.1000, L509.6000, L801.1541, L3300.1500, L3300.1100 #### [facility] [address] [place], [address] Vitamin D,25 Hydroxyon 09-20 Vitamin D 25-OH 57.6 ng/mL Normal [facility] Comment on above: Result Comment: Alysa min D 25(OH) Status Range Deficiency <20 ng/mL (50nmol/L) Insufficiency 20 - 30 ng/mL (50 - 75 nmol/L) Sufficiency 30 - 100 ng/mL (75 - 250 nmol/L) Toxicity >100 ng/mL (>250 nmol/L) Performed By: #### L 3400.4000, L500.4050, L3300.1000, L509.6000, L801.1541, L3300.1500, L3300.1100 #### [facility] [place], [address] [facility]N Telephone (GYURWP) SARIKA AVILA ([id number]) 1970 F Date Time Provider Department 09/16/24 GEGE JAMISON During your visit today, we recorded the following information about you: Amna Burrows RN 09/16/2024 3:56 PM Signed 200 units Botox approved through 08/24/25 - NPCR. Updated sticky note. Pt scheduled for Botox on 10/06 at with Emily. Amna Burrows RN September 16, 2024 3:56 PM Allergies As of Date: 09/16/2024 Noted Allergy Reaction COMPAZINE (PROCHLORPERAZINE EDISY*08/30/2014 1 - Mental Status Change Comments: Other reaction(s): Dizzy/Vertigo, Dyspepsia LATEX 12/10/2015 9 - Itching DOXYCYCLINE 06/06/2018 11 - Vomiting LEVOFLOXACIN 09/04/2011 14 - Other: See Comments 8 - GI Upset Comments: Other reaction(s): Dizzy/Vertigo, GI Upset, Other: See Comments Date Reviewed: 04/01/2024 Reviewed by: Gege Jamison MD - Fully Assessed Reason for Visit: Care Coordination [5909] Cmt: Botox Prescriptions as of 09/16/2024 - vibegron (GEMTESA) 75 mg tablet take 1 tablet by mouth every day - modafinil (PROVIGIL) 200 mg tablet Take one pill in the morning and 0.5 (half) a pill at noon. - gabapentin (NEURONTIN) 100 mg capsule Take 1 capsule by mouth three times a day for 180 days. - cladribine,multiple sclerosis, (MAVENCLAD, 10 TABLET PACK,) 10 mg tablet - acyclovir (ZOVIRAX) 400 mg tablet Take 1 tablet by mouth every 12 hours. - desvenlafaxine ER (PRISTIQ) 50 mg 24 hr tablet Take 1 tablet by mouth every afternoon. - NUEDEXTA 20-10 mg capsule Take 1 capsule by mouth every 12 hours. - fluticasone (FLONASE) 50 mcg/actuation nasal spray Fluticasone Propionate Active 1 SPRAY INTRANASAL DAILY November 18, 2018 1:22pm - triamterene-hydroCHLOROthia zide (MAXZIDE-25) 37.5-25 mg per tablet Take 1 tablet by mouth every morning. - buPROPion XL (WELLBUTRIN XL) 150 mg 24 hr tablet - liraglutide (VICTOZA) 0.6 mg/ 0.1 ml subcutaneous pen injector inject 1.8 milligram subcutaneously daily - albuterol HFA (PROVENTIL HFA, VENTOLIN HFA) 90 mcg/actuation inhaler albuterol 90 mcg/actuation aerosol inhaler albuterol 90 mcg/actuation aerosol inhaler 1 PUFF INHALATION NEEDED PRN For Sob AND/Or Wheezing September 19, 2017 Active 09-19-2017 [facility] ([id number]) - hydrocortisone 2.5 % ointment - miconazole (MONISTAT-DERM,ROSEMARY) 2 % cream As directed. - nystatin (MYCOSTATIN) powder Apply to affected area twice daily. - folic acid 800 mcg tablet every day - VITAMIN D-3 2,000 unit cap 5,000 Units. - esterified estrogens-methylTESTOSTERon e (ESTRATEST HS) 0.625-1.25 mg per tablet - NOVOFINE 32 32 gauge x / ndle Problem List As Of Date 09/16/2024 Noted Resolved MS (multiple sclerosis) (HCC) [G35] 12/10/2015 Adrenal adenoma [D35.00] 12/10/2015 Abnormal findings on diagnostic imaging of body*06/01/2017 Left lower quadrant pain [R10.32] 06/01/2017 Bradycardia [R00.1] 11/05/2017 Dizziness and giddiness [R42] 10/29/2017 Other specified abnormal findings of blood chem*09/03/2017 Other intra-abdominal and pelvic swelling, mass*06/01/2017 GERD (gastroesophageal reflux disease) [K21.9] 12/02/2017 IBS (irritable bowel syndrome) [K58.9] 12/02/2017 History of colonic polyps [Z86.0100] 12/02/2017 Hemorrhoids [K64.9] 04/19/2019 Spinal stenosis of cervical region [M48.02] 10/08/2023 Urge incontinence [N39.41] 04/01/2024 Neurogenic dysfunction of the urinary bladder [*04/01/2024 Encounter Status:Closed by AMNA BURROWS on 09/16/24 Normal [facility] Dexa Bone Density Studyon Dexa Bone Density Study [facility] Imaging Services [address] [place] [address] Dexa Bone Density Study MR#: [id number] Acct: [id number] Name: SARIKA AVILA Harper Rep #: [id number] : 1970 F 54 From: Artur Gottlieb MD PCP: Dr. Dina Wu MD Status: [facility] Study: Dexa Bone Density Study Date of Exam: 08/26/24 Exam# [id number] Ordering Dr: Dina Wu MD [id number] STUDY: DUAL ENERGY X-RAY ABSORPTIOMETRY / DXA REASON FOR EXAM: Female, 54 years old. Postmenopausal screening TECHNIQUE: Bone Mineral Density (BMD) measurements of lumbar spine and bilateral hips were obtained. COMPARISON: 2017 FINDINGS: Lumbar Spine (L1-L4): g/cm2 (0.888) / T-score (-1.4) / Z-score (-0.4) Bone mineral density in the lumbar spine has increased by 1.4% since the previous study Left Femur Total: g/cm2 (1.009) / T-score (0.5) / Z-score (1.2) Left Femoral Neck: g/cm2 (0.744) / T-score (-0.9) / Z-score (0.1) Right Femur Total: g/cm2 (0.944) / T-score (0.0) / Z-score (0.7) Right Femoral Neck: g/cm2 (0.720) / T-score (-1.2) / Z-score (-0.1) Bone mineral density in the right femur has increased by 1% and is unchanged in the left femur compared to the previous study BD/Dexa Bone Density Study IMPRESSION: The patient is considered osteopenic as outlined below according to World Josh Organization (WHO) criteria with a moderate fracture risk. 10 year fracture risk: Major osteoporotic fracture 13%, hip fracture 0.9% Reference Information: The T-score is the number of standard deviations above or below the standard which is normal for young adults at their peak bone mineral density. The World Health Organization (WHO) interprets the T-scores as follows: Above -1 Normal bone density Between -1 and -2.5 Osteopenia Equal to / or below -2.5 Osteoporosis As a practical clinical guideline, osteopenia may be graded as follows: Mild -1 through -1.5 Moderate -1.6 through -2.0 Severe -2.1 through -2.4 The Z-score is the number of standard deviations above or below age-matched controls. A Z-score of less than -1.5 would be considered abnormal. References: 1. NIH Osteoporosis and Related Bone Diseases www osteo.org 2. International Society for Clinical Densitometry www iscd.org 3. National Osteoporosis Foundation www nof.org Electronically Signed: Kimberly Gottlieb MD at 9:41 EST , CC: Dr. Dina Wu MD Wind Turbine Engineer: Signed Normal [facility] SCRN MAMM (CAD)W/DEJON BILATo n 08-26-2024 SCRN MAMM (CAD)W/DEJON BILAT [facility] Imaging Services [address] [place] [address] SCRN MAMM (CAD)W/DEJON BILAT MR#: [id number] Acct: [id number] Name: SARIKA AVILA Rep #: [id number] : 1970 F 54 From: Artur Gottlieb MD PCP: Dr. Dina Wu MD Status: REG CLI Study: SCRN MAMM (CAD)W/DEJON BILAT Date of Exam: 10/19 Exam# [id number] Ordering Dr: Dina Wu MD [id number] MAMMOGRAPHY - BILATERAL SCREENING 3-D TOMOSYNTHESIS REASON FOR EXAM: Female, 54 years old. Routine screening PERTINENT HISTORY: No significant family history. Previous left breast biopsy TECHNIQUE: 2-D mammograms and 3-D Tomosynthesis of the breast (s) were performed. CAD was performed. COMPARISON: 05/24/2020 FINDINGS: The breast composition is composed of scattered fibroglandular density. Scattered benign calcifications are seen. No dense spiculated masses or suspicious microcalcifications are identified. No architectural distortion is identified. There is no skin thickening or retraction. There has been no significant change since the prior study. BI/SCRN MAMM (CAD)W/DEJON BILAT IMPRESSION: No mammographic signs of malignancy. Routine yearly mammograms recommended. ASSESSMENT CATEGORY: BIRADS Category 1: Negative. A letter regarding these results will be sent to the patient by the facility within 30 days. FOLLOW UP RECOMMENDATION: Yearly follow up mammogram recommended. (A) Approximately 10% of breast cancers are not detected by mammography. A normal mammogram should not delay biopsy of a clinically suspicious abnormality. Electronically Signed: Kimberly Gottlieb MD at 11:17 EST , CC: Dr. Dina Wu MD Wind Turbine Engineer: Signed Normal [facility] Progress Noteon 08-20-2024 Progress Note Administrations This Visit onabotulinumtoxin A (BOTOX) injection 200 Units Admin Date 08/20/24 Action Given Dose 200 Units Route IntraMUSCular Site Other Administered By Luisito Donovan MD Ordering Provider: Luisito Donovan MD [facility]: [id number] Lot#: [id number] Premises Technician: Allergan Patient Supplied?: No Normal WAY [facility] SHS Bacteria Ur Culton 4 Bacteria identified Cx Nom (U) ORGANISM ID: 1 <10,000 CFU/ml Normal urogenital luci Normal [facility] Comment on above: Performed By: #### 6 30-4 ####[facility] LABCLIA [id number] [address] OF [facility] CNPNon 08-03-2024 CNPN Telephone (AMY) SARIKA AVILA ([id number]) 1970 F Date Time Provider Department 08/03/24 GEGE JAMISON During your visit today, we recorded the following information about you: Tamika Sanderson 08/03/2024 4:01 PM Signed Patient called in stating she is having accidents just in the last couple of days. Concerns of infection versus needing another Botox injection. Please advise. Carol Hyde RN 08/03/2024 4:17 PM Signed Three days ago patient went to use the restroom and has been experiencing urge incontinence. Patient had 200 units of Botox 04/01/2024. S: UTI symptoms B (confirm by chart review): Any recent antibiotic treatment: No. : No. History of recurrent UTIs: No. Recent surgery: No. Urine culture within the past 30 days No A: Symptoms include:urgency and incontinence Duration: 3 days R: No urine culture in past 30 days, ordered lab collect urine culture Pharmacy updated: Yes Allergies reviewed and updated: Yes Patient provided lab location in [place]. YEISON Pfeiffer Mary M, MD 08/04/2024 8:54 AM Signed Due to difficulty with MyChart notes sending too quickly, I called patient. She just dropped off a sample at [facility]. We will see if she has an infection and if not, consider repeating her Botox soon. Gege Jamison MD Allergies As of Date: 08/03/2024 Noted Allergy Reaction COMPAZINE (PROCHLORPERAZINE EDISY*08/30/2014 1 - Mental Status Change Comments: Other reaction(s): Dizzy/Vertigo, Dyspepsia LATEX 12/10/2015 9 - Itching DOXYCYCLINE 06/06/2018 11 - Vomiting LEVOFLOXACIN 09/04/2011 14 - Other: See Comments 8 - GI Upset Comments: Other reaction(s): Dizzy/Vertigo, GI Upset, Other: See Comments Date Reviewed: 04/01/2024 Reviewed by: Gege Jamison MD - Fully Assessed Primary Visit Diagnosis:UTI symptoms [R39.9] Order(s):URINE CULTURE [[facility]] Order #: [id number] FUTURE Prescriptions as of 08/05/2024 - vibegron (GEMTESA) 75 mg tablet take 1 tablet by mouth every day - baclofen 10 mg tablet Take 1 tablet by mouth four times daily. - modafinil (PROVIGIL) 200 mg tablet Take one pill in the morning and 0.5 (half) a pill at noon. - gabapentin (NEURONTIN) 100 mg capsule Take 1 capsule by mouth three times a day for 180 days. - cladribine,multiple sclerosis, (MAVENCLAD, 10 TABLET PACK,) 10 mg tablet - acyclovir (ZOVIRAX) 400 mg tablet Take 1 tablet by mouth every 12 hours. - desvenlafaxine ER (PRISTIQ) 50 mg 24 hr tablet Take 1 tablet by mouth every afternoon. - NUEDEXTA 20-10 mg capsule Take 1 capsule by mouth every 12 hours. - fluticasone (FLONASE) 50 mcg/actuation nasal spray Fluticasone Propionate Active 1 SPRAY INTRANASAL DAILY November 18, 2018 1:22pm - triamterene-hydroCHLOROthia zide (MAXZIDE-25) 37.5-25 mg per tablet Take 1 tablet by mouth every morning. - buPROPion XL (WELLBUTRIN XL) 150 mg 24 hr tablet - liraglutide (VICTOZA) 0.6 mg/ 0.1 ml subcutaneous pen injector inject 1.8 milligram subcutaneously daily - albuterol HFA (PROVENTIL HFA, VENTOLIN HFA) 90 mcg/actuation inhaler albuterol 90 mcg/actuation aerosol inhaler albuterol 90 mcg/actuation aerosol inhaler 1 PUFF INHALATION NEEDED PRN For Sob AND/Or Wheezing September 19, 2017 Active 09-19-2017 [facility] ([id number]) - hydrocortisone 2.5 % ointment - miconazole (MONISTAT-DERM,ROSEMARY) 2 % cream As directed. - nystatin (MYCOSTATIN) powder Apply to affected area twice daily. - folic acid 800 mcg tablet every day - VITAMIN D-3 2,000 unit cap 5,000 Units. - esterified estrogens-methylTESTOSTERon e (ESTRATEST HS) 0.625-1.25 mg per tablet - NOVOFINE 32 32 gauge x 1/4 ndle Problem List As Of Date 08/03/2024 Noted Resolved MS (multiple sclerosis) (HCC) [G35] 12/10/2015 Adrenal adenoma [D35.00] 12/10/2015 Abnormal findings on diagnostic imaging of body*06/01/2017 Left lower quadrant pain [R10.32] 06/01/2017 Bradycardia [R00.1] 11/05/2017 Dizziness and giddiness [R42] 10/29/2017 Other specified abnormal findings of blood chem*09/03/2017 Other intra-abdominal and pelvic swelling, mass*06/01/2017 GERD (gastroesophageal reflux disease) [K21.9] 12/02/2017 IBS (irritable bowel syndrome) [K58.9] 12/02/2017 History of colonic polyps [Z86.0100] 12/02/2017 Hemorrhoids [K64.9] 04/19/2019 Spinal stenosis of cervical region [M48.02] 10/08/2023 Urge incontinence [N39.41] 04/01/2024 Neurogenic dysfunction of the urinary bladder [*04/01/2024 Encounter Status:Closed by GEGE JAMISON on 08/04/24 Normal [facility] Inital Evaluation (1) - PTon 07-20-2024 Inital Evaluation (1) - PT [facility] Physical Therapy [facility] [address] [place] [address] / REHABILITATION SERVICES INITIAL EVALUATION MR#: [id number] Acct: [id number] Name: SARIKA AVILA Rep #: [id number] : 1970 53 From: Rik Gautam PT, ATC Referring Dr.: ANDREA Teague Status: REG R CR Insurance: [facility] SELF PAY INSURANCE Patient's Visit Information Visit Information Visit Information: SARIKA AVILA is a 53 year old F referred to Physical Therapy by ANDREA Teague with a diagnosis of L foot sprain. Date of Evaluation: 07/19/24 Physical Therapist: Rik Gautam, PT, ATC Visit Plan Frequency: 2x /Week Duration: 3 Weeks Plan: L foot stretching and mobs, L ankle strengthening, gait training, balance, and HEP. US/CP for pain Subjective Subjective: Pt reports she was stepping off a step about 4 weeks ago when she experienced a pain in her L foot. Pt reports no real immediate pain, but pain showed up later that night. Pt reports she was Dx'd with MS 20 years ago, and it mostly effects her R side. Pt reports no PMHx of L foot trauma. Pt reports she did have x-rays taken that revealed no fractures. 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 Pt reports she has difficulty with stair negotiation secondary to pain. Pt notes she has severe difficulty with even being able to walk at this time. Pt reports she works on a campus style setting and has to walk 100's of feet to her car from her office. Pt reports she has sleep difficulty secondary to the L foot pain. 5/10 pain while at rest, 10/10 pain when at its worst. Pain L foot pain: Pain Intensity (Out of 10): 5 Pain Intensity Range: 10 Objective Objective: Neuro: B LE sensation is WNL to light touch. Palpation: Pt is sore along the spring ligament. No obvious deformity noted at this time. ROM: R ankle DF= -7, PF= 50; L ankle DF= 10, PF= 60 MMT: R ankle DF= 19, PF=27 #F; L ankle DF= 41, PF= 17 Gait: Pt ambulates with a slow cadance and limp of L LE Balance/Special Test Scores Lower Extremity Functional Score: 18 Goals Goal 1:: Decrease L foot pain x 50% to aid with sleep Goal Time Frame: 2-4 Weeks Goal 2:: Pt will be able to ambulate with a normal gait pattern on L LE Goal Time Frame: 2-4 Weeks Goal 3:: Pt will be able to ambulate 300 feet without difficulty Goal Time Frame: 2-4 Weeks Goal 4:: I with HEP Goal Time Frame: 2-4 Weeks Rehabilitation Potential Physical Therapy Diagnosis: Pt has L foot pain, weakness, and limited ROM secondary to L foot sprain Rehabilitation Potential: Good Anticipated Interventions Patient/Client Instruction: Educate patient on: Condition and Plan of Care For the Purpose of:: To improve self management Therapeutic Exercise to Include: Strength training, Endurance training, Balance training, Flexibilty training, Gait and locomotor training, Passive ROM and Active ROM For the Purpose of:: To decrease pain, To increase ROM and To improve muscle performance and motor function Cryotherapy (ice pack, ice massage): Yes For the Purpose of:: To decrease pain Text: Thank you for the opportunity to evaluate your patient. For Medicare and Medicare HMO plans, please review the plan of care and approve it. It will need to be FAXED BACK to us at [phone] for Medicare purposes. For Medicare only, by signing this I certify the plan of care. Please let me know if there are questions or concerns regarding this plan of care. Physician Signature: Date: 07/20/24 1330 CC: Dr. Dina Wu MD; ANDREA Teague [facility] Signed Normal [facility] Internal Medicine Office Vis iton 07-16-2024 Internal Medicine Office Visit [facility] [address] [place] [address] [place] [address] OFFICE VISIT Date of Service: 07/16/24 MR#: [id number] Acct: [id number] Name: SARIKA AVILA Rep #: [id number] : 1970 Provider: Dr. Dina hadley MD Age/Sex: 53/F Location: [facility] Status: Signed Intake Vital Signs 04/14/24 08:54 07/07/24 09:25 07/16/24 08:55 Height 5 ft 1 in 5 ft 3 in 5 ft 3 in Weight: 231 lb 2 oz BMI 40.9 BP 120/80 Blood Pressure Location Lt brachial Position Sitting Respiration 16 Pulse 77 Pulse Source Monitor Temp 97.2 F L Temp Source Temporal Pulse Oximetry (%) 98 Oxygen Delivery Method room air Intake Visit Reasons: 3 M FU Chief Complaint: 3m f/u Liquid Yeast Supervisor Required: No Accompanied by: Self Is patient in pain?: Yes (left foot with movement ) Pain scale (1-10): 4 Allergies Corticosteroids (Glucocorticoids) (steroids) Allergy (Mild, Verified 07/16/24 08:51) psychosis doxycycline Allergy (Verified 07/16/24 08:51) Vomiting latex Allergy (Verified 07/16/24 08:51) Rash prochlorperazine (From Compazine) Allergy (Verified 07/16/24 08:51) Other garlic Adverse Reaction (Mild, Verified 07/16/24 08:54) vomitting Medications ???Medication ???Instructions ???Recorded ???Confirmed ???Type folic acid 800 mcg tablet 800 mcg PO DAILY 09/19/17 07/16/24 History modafinil 200 mg tablet 200 mg PO DAILY 09/19/17 07/16/24 History triamcinolone acetonide 55 mcg 1 spray intranasal DAILY 04/08/19 07/16/24 History nasal spray aerosol (Nasacort) polyethylene glycol 3350 17 17 g PO DAILY PRN Constipation 09/13/19 07/16/24 History gram/dose oral powder (Miralax) Handicap Placard #1 ea 07/27/21 07/16/24 Rx acyclovir 200 mg capsule 400 mg PO BID 07/27/21 07/16/24 History baclofen 10 mg tablet 10 mg PO .QID 07/27/21 07/16/24 History cladribine(multiple sclerosis) 10 10 mg PO DAILY 10/02/22 07/16/24 History mg tablet (Mavenclad (8 tablet pack)) levothyroxine 88 mcg tablet 88 mcg PO DAILY@0600 #90 tabs 11/29/22 07/16/24 Rx dextromethorphan 20 mg-quinidine 1 cap PO Q12H 05/15/23 07/16/24 History 10 mg capsule (Nuedexta) metronidazole 0.75 % topical gel 1 applic topical QHS 05/15/23 07/16/24 History gabapentin 100 mg capsule mg PO 08/27/23 07/16/24 History triamterene 37.5 See Rx Instructions .Route 04/23/24 07/16/24 Rx mg-hydrochlorothiazide 25 mg tablet .COMPLEX #90 tabs albuterol sulfate 90 mcg/actuation 1 - 2 puff inhalation Q6H PRN 05/10/24 07/16/24 Rx aerosol inhaler shortness of breath or wheezing #8.5 grams bupropion HCl 300 mg 24 hr tablet, 300 mg PO QAM #90 tabs 07/01/24 07/16/24 Rx extended release desvenlafaxine succinate 50 mg See Rx Instructions .Route 07/01/24 07/16/24 Rx tablet,extended release 24 hr .COMPLEX #90 tabs esterified 1 tab PO DAILY #30 tabs 07/16/24 07/16/24 Rx estrogens-methyltestosteron e 0.625 mg-1.25 mg tablet [facility] Medical History (Updated 07/16/24 @ 10:[address] Dina Wu MD) Chronic pain Sprain of left foot Post-menopausal Decreased mobility Left wrist sprain Seizure-like activity Preventative health care CKD (chronic kidney disease), stage III Macrocytosis Syncope Urinary frequency Pseudobulbar affect Rosacea PTSD (post-traumatic stress disorder) Major depressive disorder Chronic constipation Anxiety and depression NATHALIE (obstructive sleep apnea) Right foot pain Fatigue Hypersomnolence Type 2 diabetes mellitus History of left heart catheterization (LHC) ( 01/25/21) Chest pain Chronic back pain Essential (primary) hypertension Urinary urgency Rectocele Obesity (BMI 30-39.9) Low back pain Neuropathy Hormone deficiency GERD (gastroesophageal reflux disease) Pre-diabetes Back problem Asthma Arthritis Anemia Collapse of left lung History of pneumonia Osteopenia Diverticulitis Depression Multiple sclerosis (10/30/16) Hypothyroidism Bradycardia Surgical History Hx of repair of rotator cuff History of rectocele History of bronchoscopy History of tonsillectomy Hx of cholecystectomy History of hysterectomy Family History Mother Alcoholism Anemia Asthma COPD (chronic obstructive pulmonary disease) Arthritis Kidney disease Mental disorder Respiratory abnormality CVA (cerebral vascular accident) Grandfather Angina pectoris Myocardial infarction Grandmother Arthritis Hypertension Osteoporosis CVA (cerebral vascular accident) Sister Crohn disease Bowel disease Uncle Parkinsons disease Social History Smoking Status: Former smoker quit date: 06/14/21 Tobacco: How many years used: 30 Electronic Cigarette Use: (more content not included)... Normal [facility] Foot min 3 Viewson 4 Foot min 3 Views [facility] Imaging Services [address] [place], [place] [id number] Foot min 3 Views MR#: [id number] Acct: [id number] Name: SARIKA AVILA Rep #: [id number] : 1970 F 53 From: Raheem mayers MD PCP: Dr. Dina Wu MD Status: REG CLI Study: Foot min 3 Views Date of Exam: 07/07/24 Exam# [id number] Ordering Dr: Eddie Kessler [id number] STUDY: X-RAY - LEFT FOOT CLINICAL: Female, 53 years old. Medial foot pain following a strain. TECHNIQUE: 3 view(s) of the foot. COMPARISON: Comparison is made with prior study January 13, 2019. FINDINGS: There is an enthesophyte involving the posterior superior calcaneus at the site of insertion of the Achilles tendon. Normal visualized subtalar, talonavicular, calcaneocuboid, tarsal and tarsometatarsal articulations. Normal metatarsi. There is degenerative arthrosis of the metatarsophalangeal joint of the hallux . Normal tibial and fibular sesamoid bones. Normal interphalangeal joint of the great toe. Normal phalanges of the great toe. Normal second through fifth metatarsophalangeal joints. Normal interphalangeal joints and phalanges of the lesser toes. The soft tissue structures are unremarkable. RAD/Foot min 3 Views IMPRESSION: Degenerative change at the first metatarsophalangeal joint. Electronically Signed: Raheem Hood MD at 9:41 EST Reading Location ID and State: [address] [place] [address] , Service support , CC: Dr. Dina Wu MD; ANDREA Teague Wind Turbine Engineer: Signed Normal [facility] Urgent Care Visit Reporton 1 09-06-2023 Urgent Care Visit Report [facility] [address], [address] [place] [address] OFFICE VISIT Date of Service: 07/07/24 MR#: [id number] Acct: [id number] Name: SARIKA AVILA Rep #: [id number] : 1970 Provider: ANDREA Teageu Age/Sex: 53/F Location: [facility] Status: Signed Intake Vital Signs 07/01/24 07:37 07/07/24 09:25 Height 5 ft 1 in 5 ft 3 in Weight: 229 lb BMI 40.5 BP 122/64 H Blood Pressure Location Lt brachial Position Sitting Respiration 16 Pulse 77 Pulse Source Monitor Temp 97.6 F L Pulse Oximetry (%) 98 Oxygen Delivery Method room air Intake Visit Reasons: L FOOT/INJURY/PAIN Chief Complaint: LT FOOT INJURY / PAIN Liquid Yeast Supervisor Required: No Accompanied by: Self Is patient in pain?: Yes Allergies Corticosteroids (Glucocorticoids) (steroids) Allergy (Mild, Verified 07/07/24 09:26) psychosis doxycycline Allergy (Verified 07/07/24 09:26) Vomiting latex Allergy (Verified 07/07/24 09:26) Rash prochlorperazine (From Compazine) Allergy (Verified 07/07/24 09:26) Other Medications ???Medication ???Instructions ???Recorded ???Confirmed ???Type folic acid 800 mcg tablet 800 mcg PO DAILY 09/19/17 07/07/24 History modafinil 200 mg tablet 200 mg PO DAILY 09/19/17 07/07/24 History triamcinolone acetonide 55 mcg 1 spray intranasal DAILY 04/08/19 07/07/24 History nasal spray aerosol (Nasacort) polyethylene glycol 3350 17 17 g PO DAILY PRN Constipation 09/13/19 07/07/24 History gram/dose oral powder (Miralax) Handicap Placard #1 ea 07/27/21 07/07/24 Rx acyclovir 200 mg capsule 400 mg PO BID 07/27/21 07/07/24 History baclofen 10 mg tablet 10 mg PO .QID 07/27/21 07/07/24 History cladribine(multiple sclerosis) 10 10 mg PO DAILY 10/02/22 07/07/24 History mg tablet (Mavenclad (8 tablet pack)) levothyroxine 88 mcg tablet 88 mcg PO DAILY@0600 #90 tabs 11/29/22 07/07/24 Rx dextromethorphan 20 mg-quinidine 1 cap PO Q12H 05/15/23 07/07/24 History 10 mg capsule (Nuedexta) metronidazole 0.75 % topical gel 1 applic topical QHS 05/15/23 07/07/24 History gabapentin 100 mg capsule mg PO 08/27/23 07/07/24 History triamterene 37.5 See Rx Instructions .Route 04/23/24 07/07/24 Rx mg-hydrochlorothiazide 25 mg tablet .COMPLEX #90 tabs albuterol sulfate 90 mcg/actuation 1 - 2 puff inhalation Q6H PRN 05/10/24 07/07/24 Rx aerosol inhaler shortness of breath or wheezing #8.5 grams bupropion HCl 300 mg 24 hr tablet, 300 mg PO QAM #90 tabs 07/01/24 07/07/24 Rx extended release desvenlafaxine succinate 50 mg See Rx Instructions .Route 07/01/24 07/07/24 Rx tablet,extended release 24 hr .COMPLEX #90 tabs Nurse's Note: LT medial foot pain/ injury happened Friday pt stepped off step wrong [facility] Medical History (Updated 07/07/24 @ 09:43 by Eddie MENDEZ, PA) Sprain of left foot Post-menopausal Decreased mobility Left wrist sprain Seizure-like activity Preventative health care CKD (chronic kidney disease), stage III Macrocytosis Syncope Urinary frequency Pseudobulbar affect Rosacea PTSD (post-traumatic stress disorder) Major depressive disorder Chronic constipation Anxiety and depression NATHALIE (obstructive sleep apnea) Right foot pain Fatigue Hypersomnolence Type 2 diabetes mellitus History of left heart catheterization (LHC) ( 01/25/21) Chest pain Chronic back pain Essential (primary) hypertension Urinary urgency Rectocele Obesity (BMI 30-39.9) Low back pain Neuropathy Hormone deficiency GERD (gastroesophageal reflux disease) Pre-diabetes Back problem Asthma Arthritis Anemia Collapse of left lung History of pneumonia Osteopenia Diverticulitis Depression Multiple sclerosis (10/30/16) Hypothyroidism Bradycardia Surgical History Hx of repair of rotator cuff History of rectocele History of bronchoscopy History of tonsillectomy Hx of cholecystectomy History of hysterectomy Family History Mother Alcoholism Anemia Asthma COPD (chronic obstructive pulmonary disease) Arthritis Kidney disease Mental disorder Respiratory abnormality CVA (cerebral vascular accident) Grandfather Angina pectoris Myocardial infarction Grandmother Arthritis Hypertension Osteoporosis CVA (cerebral vascular accident) Sister Crohn disease Bowel disease Uncle Parkinsons disease Social History Smoking Status: Former smoker quit date: 06/14/21 Tobacco: How many years used: 30 Electronic Cigarette Use: with nicotine second hand exposure: Yes alcohol intake: never substance use type: marijuana and other details: Has a medical marijuana card. what type of physical a (more content not included)... Normal [facility] MR/BMS.BPon 07-01-2024 MR/BMS.BP [facility] ry [address], [address] [place] [address] OFFICE VISIT Date of Service: 07/01/24 MR#: [id number] Acct: [id number] Name: SARIKA AVILA Rep #: [id number] : 1970 Provider: Dr. Eddie Tran se, DO Age/Sex: 53/F Location: [facility].BP Status: Signed Intake Vital Signs 04/19/24 07:11 07/01/24 07:37 Height 5 ft 1 in 5 ft 1 in BP Intake Visit Reasons: 2-3 month f/u Allergies Corticosteroids (Glucocorticoids) (steroids) Allergy (Mild, Verified 04/19/24 07:05) psychosis doxycycline Allergy (Verified 04/19/24 07:05) Vomiting latex Allergy (Verified 04/19/24 07:05) Rash prochlorperazine (From Compazine) Allergy (Verified 04/19/24 07:05) Other [facility] Medical History Post-menopausal Decreased mobility Left wrist sprain Seizure-like activity Preventative health care CKD (chronic kidney disease), stage III Macrocytosis Syncope Urinary frequency Pseudobulbar affect Rosacea PTSD (post-traumatic stress disorder) Major depressive disorder Chronic constipation Anxiety and depression NATHALIE (obstructive sleep apnea) Right foot pain Fatigue Hypersomnolence Type 2 diabetes mellitus History of left heart catheterization (LHC) ( 01/25/21) Chest pain Chronic back pain Essential (primary) hypertension Urinary urgency Rectocele Obesity (BMI 30-39.9) Low back pain Neuropathy Hormone deficiency GERD (gastroesophageal reflux disease) Pre-diabetes Back problem Asthma Arthritis Anemia Collapse of left lung History of pneumonia Osteopenia Diverticulitis Depression Multiple sclerosis (10/30/16) Hypothyroidism Bradycardia Surgical History Hx of repair of rotator cuff History of rectocele History of bronchoscopy History of tonsillectomy Hx of cholecystectomy History of hysterectomy Family History Mother Alcoholism Anemia Asthma COPD (chronic obstructive pulmonary disease) Arthritis Kidney disease Mental disorder Respiratory abnormality CVA (cerebral vascular accident) Grandfather Angina pectoris Myocardial infarction Grandmother Arthritis Hypertension Osteoporosis CVA (cerebral vascular accident) Sister Crohn disease Bowel disease Uncle Parkinsons disease Social History Smoking Status: Former smoker quit date: 06/14/21 Tobacco: How many years used: 30 Electronic Cigarette Use: with nicotine second hand exposure: Yes alcohol intake: never substance use type: marijuana and other details: Has a medical marijuana card. what type of physical activity do you participate in: none HPI History of Present Illness History provided by: patient HPI: Sarika Avila is a 53 year old female who presents today for follow up evaluation. Patient reports that her MS has been worse in recent past. Elaborates that she has some worsened coordination. Did notice some benefit with [employer] as far imaging, but feels like she still physically feels worse. Has not had any falls, but has been close. Reports that mood has been shit. Finds it harder to work, but has not considered cutting back or stopping. Describes work as being her main motivator. Feels like when she had not worked in the past she did significantly worse. Recently moved mother to [facility] in [place] after her previous custodial essentially kicked her out after she had attempted suicide. Patient was called and she was in a psychiatric assisted living facility without patient knowing. Since moving is still very irritable. Her was found to have clear cell carcinoma in his kidneys and recently had a tumor removed. Patient reports that he had complications from surgery and had to have stents placed following this. He has been off of work for a prolonged period secondary to all this happening. Recently was discovered to have a broken bone. Work, which was supposed to be more calm than previous job, has been much more stressful. Recently has been filling for grants and spending money that they had received in time. Continues to follow with Shay Elizondo regularly. On top of all this her father 3 weeks ago. She had not talked to him for nearly 40 years. Was excluded from his obituary. Was recently stopped off her hormones by her PCP. Denies SI/HI or AVH. Review of Systems Constitutional Reports: fatigue; Denies: fever(s) or chills Eyes Denies: change in vision or blurry vision Ears, Nose, Mouth, Throat Denies: throat pain, neck pain or change in hearing Cardiovascular Denies: chest pain, palpitations or dyspnea Respiratory Denies: dyspnea, cough or wheezing Gastrointestinal Denies: abdominal pain, nausea, vomiting, diarrhea or constipation (more content not included)... Normal [facility] Comprehensive Metabolic Prof ilon 06-24-2024 Albumin [Mass/Vol] 3.6 g/dL Normal 3.2-5.0 [facility] Comment on above: Performed By: #### L 500.4050 #### [facility] [address] [place], [address] Albumin/Globulin [Mass ratio] 1.0 {ratio} Normal 0.9-2.4 [facility] Comment on above: Performed By: #### L 500.4050 #### [facility] [address] [place], [address] ALK P 98 U/L Normal 45-117 [facility] Comment on above: Performed By: #### L 500.4050 #### [facility] [address] [place], [address] ALT [Catalytic activity/Vol] 29 U/L Normal 13-56 [facility] Comment on above: Performed By: #### L 500.4050 #### [facility] [address] [place], [address] AST [Catalytic activity/Vol] 20 U/L Normal 15-37 [facility] Comment on above: Performed By: #### L 500.4050 #### [facility] [address] [place], [address] Bilirubin [Mass/Vol] 0.50 mg/dL Normal 0.20-1.00 [facility] Comment on above: Result Comment: For patients on eltrombopag therapy, use of Dimension Zillah TBIL is not recommended. Performed By: #### L 500.4050 #### [facility] [address] [place], [address] BUN/CRE 15.6 RATIO Normal 10-20 [facility] Comment on above: Performed By: #### L 500.4050 #### [facility] [address] [place], [address] CA,Total 9.9 mg/dL Normal 8.5-10.1 [facility] Comment on above: Performed By: #### L 500.4050 #### [facility] [address] [place], [address] Chloride [Moles/Vol] 106 mmol/L Normal 98-107 [facility] Comment on above: Performed By: #### L 500.4050 #### [facility] [address] [place], [address] CO2 [Moles/Vol] 27.0 mmol/L Normal 21.0-32.0 [facility] Comment on above: Performed By: #### L 500.4050 #### [facility] [address] [place], [address] Creatinine [Mass/Vol] 1.35 mg/dL High 0.55-1.02 [facility] Comment on above: Result Comment: The validity of the calculated GFR GFRAA in patients over 70 years has not been determined. Clinical correlation is essential. Performed By: #### L 500.4050 #### [facility] [address] [place], [address] EST GFR - AA 52 mL/min Low >60 [facility] Comment on above: Result Comment: Afri can Rw[place]an GFR Calc Performed By: #### L 500.4050 #### [facility] [address] [place], [address] GAP 5 Normal 5-15 [facility] Comment on above: Performed By: #### L 500.4050 #### [facility] [address] [place], [address] GFR/1.73 sq M.predicted among non-blacks MDRD (S/P/Bld) [Vol rate/Area] 43 mL/min/{1.73_m2} Low >60 [facility] Comment on above: Result Comment: Non- GFR Calc Performed By: #### L 500.4050 #### [facility] [address] [place], [address] Globulin (S) [Mass/Vol] 3.6 g/dL Normal 2.2-4.2 [facility] Comment on above: Performed By: #### L 500.4050 #### [facility] [address] [place], [address] Glucose [Mass/Vol] 99 mg/dL Normal 74-106 [facility] Comment on above: Performed By: #### L 500.4050 #### [facility] [address] [place], [address] Potassium [Moles/Vol] 3.8 mmol/L Normal 3.5-5.1 [facility] Comment on above: Performed By: #### L 500.4050 #### [facility] [address] [place], [address] Sodium [Moles/Vol] 138 mmol/L Normal 136-145 [facility] Comment on above: Performed By: #### L 500.4050 #### [facility] [address] [place], [address] T PROT 7.2 g/dL Normal 6.4-8.2 [facility] Comment on above: Performed By: #### L 500.4050 #### [facility] [address] [place], [address] Urea nitrogen [Mass/Vol] 21 mg/dL High 7-18 [facility] Comment on above: Performed By: #### L 500.4050 #### [facility] [address] [place], [address] Progress Noteon 05-21-2024 Progress Note Administrations This Visit onabotulinumtoxin A (BOTOX) injection 300 Units Admin Date 05/21/24 Action Given Dose 300 Units Route IntraMUSCular Site Other Administered By Luisito Donovan MD Ordering Provider: Luisito Donovan MD [facility]: [id number] (x 3) Lot#: [id number] (x 3) Premises Technician: Allergan Patient Supplied?: No Normal [facility] SAR[facility] AVILA ([id number]) 1970 F Date Time Provider Department 05/13/24 GEGE JAMISON During your visit today, we recorded the following information about you: Radha Perez RN 05/13/2024 11:19 AM Signed ----- Message from Gege Jamison MD sent at 04/01/2024 8:04 AM EDT ----- Regarding: botox followup Please call patient to see how she is doing after botox treatment. If she is doing well, confirm she has a six month appointment. 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 Thanks, MD Ana Rizzo Jennifer, RN 05/13/2024 11:24 AM Signed Yeison SHIN to call [facility] office back to see how she is doing since receiving her Cystoscopy Botox treatment. Radha Perez RN 04/01/24 Cysto/Botox treatment: The patient was consented for the procedure and all of her questions were answered. The patient was placed in dorsal lithotomy position and prepped and draped in sterile fashion. 200 units of botox was injected in 1 cc aliquots divided 20 cc of normal saline used to reconstitute the botox into the Detrusor muscle while using a flexible cystoscope and an Injetak needle. All 20 sites were injected just superior to the trigone. A 1 cc flush with preservative-free normal saline was injected to complete the procedure. The patient tolerated the procedure well. I personally performed the entire procedure. MD Maria E Andre Crystal 05/21/2024 1:30 PM Signed Patient returned call. Stated she is sleeping better at night, doesn't have to get up. Is no longer wetting the bed, or having accidents. She did say it is weird as she has more urine output, and it takes longer to void. Ashley Rosario RN 05/21/2024 2:47 PM Signed Called patient back, verified name and . Patient reports she is doing well and very happy with the results of her botox, she plans to return as scheduled for repeat botox injections in September. Ashley Rosario RN Allergies As of Date: 05/13/2024 Noted Allergy Reaction COMPAZINE (PROCHLORPERAZINE EDISY*08/30/2014 1 - Mental Status Change Comments: Other reaction(s): Dizzy/Vertigo, Dyspepsia LATEX 12/10/2015 9 - Itching DOXYCYCLINE 06/06/2018 11 - Vomiting LEVOFLOXACIN 09/04/2011 14 - Other: See Comments 8 - GI Upset Comments: Other reaction(s): Dizzy/Vertigo, GI Upset, Other: See Comments Date Reviewed: 04/01/2024 Reviewed by: Gege Jamison MD - Fully Assessed Reason for Visit: Patient Update [1234] Prescriptions as of 05/21/2024 - vibegron (GEMTESA) 75 mg tablet take 1 tablet by mouth every day - baclofen 10 mg tablet Take 1 tablet by mouth four times daily. - modafinil (PROVIGIL) 200 mg tablet Take one pill in the morning and 0.5 (half) a pill at noon. - gabapentin (NEURONTIN) 100 mg capsule Take 1 capsule by mouth three times a day for 180 days. - cladribine,multiple sclerosis, (MAVENCLAD, 10 TABLET PACK,) 10 mg tablet - acyclovir (ZOVIRAX) 400 mg tablet Take 1 tablet by mouth every 12 hours. - desvenlafaxine ER (PRISTIQ) 50 mg 24 hr tablet Take 1 tablet by mouth every afternoon. - NUEDEXTA 20-10 mg capsule Take 1 capsule by mouth every 12 hours. - fluticasone (FLONASE) 50 mcg/actuation nasal spray Fluticasone Propionate Active 1 SPRAY INTRANASAL DAILY November 18, 2018 1:22pm - triamterene-hydroCHLOROthia zide (MAXZIDE-25) 37.5-25 mg per tablet Take 1 tablet by mouth every morning. - buPROPion XL (WELLBUTRIN XL) 150 mg 24 hr tablet - liraglutide (VICTOZA) 0.6 mg/ 0.1 ml subcutaneous pen injector inject 1.8 milligram subcutaneously daily - albuterol HFA (PROVENTIL HFA, VENTOLIN HFA) 90 mcg/actuation inhaler albuterol 90 mcg/actuation aerosol inhaler albuterol 90 mcg/actuation aerosol inhaler 1 PUFF INHALATION NEEDED PRN For Sob AND/Or Wheezing September 19, 2017 Active 09-19-2017 [facility] ([address]907) - hydrocortisone 2.5 % ointment - miconazole (MONISTAT-DERM,ROSEMARY) 2 % cream As directed. - nystatin (MYCOSTATIN) powder Apply to affected area twice daily. - folic acid 800 mcg tablet every day - VITAMIN D-3 2,000 unit cap 5,000 Units. - esterified estrogens-methylTESTOSTERon e (ESTRATEST HS) 0.625-1.25 mg per tablet - NOVOFINE 32 32 gauge x 1/4 ndle Problem List As Of Date 05/13/2024 Noted Resolved MS (multiple sclerosis) (HCC) [G35] 12/10/2015 Adrenal adenoma [D35.00] 12/10/2015 Abnormal findings on diagnostic imaging of body*06/01/2017 Left lower quadrant pain [R10.32] 06/01/2017 Bradycardia [R00.1] 11/05/2017 Dizziness and giddiness [R42] 10/29/2017 Other specified abnormal findings of blood chem*09/03/2017 Other intra-abdominal and pelvic swelling, mass*06/01/2017 GERD (gastroesophageal reflux disease) [K21.9] 12/02/2017 IBS (irritable bowel syndrome) [K58.9] 12/02/2017 History of colonic polyps [Z86.010] (more content not included)... Normal [facility] Aldosterone 24URon 4 ALDOSTERONE,U24 6.71 ug/24 hr Normal 0.00-19.00 [facility] Comment on above: Order Comment: Test( s) 567484-Dbidsyupbmpafdh, Ur; 738107-Gjklxheldclb, Urwas developed and its performance characteristicsdetermined by [facility]. It has not been cleared or approvedby the Food and Drug Administration. Result Comment: Adul t Ranges Low Sodium Intake 20.00 - 80.00 Normal Sodium Intake 0.00 - 19.00 High Sodium Intake 0.00 - 12.00 Performed By: #### L 3400.4000, L500.4050, L3300.1000, L509.6000, L801.1541, L3300.1500, L3300.1100 #### [facility] [address] [place], [address] ALDOSTERONE,UR 5.59 ug/L Normal Not Estab. [facility] Comment on above: Order Comment: Test( s) 661056-Gmrfhmqirtfgggi, Ur; 973020-Jfaiblieadzd, Urwas developed and its performance characteristicsdetermined by [facility]. It has not been cleared or approvedby the Food and Drug Administration. Performed By: #### L 3400.4000, L500.4050, L3300.1000, L509.6000, L801.1541, L3300.1500, L3300.1100 #### [facility] [address] [place], [place], [address] Cortisol, 24 HR UR Freeon CORTISOL,F/24hr 5 ug/24 hr Low 6-42 [facility] Comment on above: Order Comment: Test( s) 178905-Epjglbcqazmrpzr, Ur; 010573-Lueorlwaidem, Urwas developed and its performance characteristicsdetermined by [facility]. It has not been cleared or approvedby the Food and Drug Administration. Result Comment: Perf ormed at: - [facility] [address] [id number] Supervisor Word Processing: Robson Barclay MD, Phone: [phone] Performed By: #### L 3400.4000, L500.4050, L3300.1000, L509.6000, L801.1541, L3300.1500, L3300.1100 #### [facility] [address] [place], [address] CORTISOL,U FREE 4 ug/L Normal [facility] Comment on above: Order Comment: Test( s) 341398-Gqqvvfxipskfndo, Ur; 120392-Eklvtbnxzqbn, Urwas developed and its performance characteristicsdetermined by [facility]. It has not been cleared or approvedby the Food and Drug Administration. Performed By: #### L 3400.4000, L500.4050, L3300.1000, L509.6000, L801.1541, L3300.1500, L3300.1100 #### [facility] [address] [place], [address] Metanephrine Frac 24 HR URon 05-03-2024 Metaneph,UR 24H 37 ug/24 hr Normal 36-209 [facility] Comment on above: Order Comment: Test( s) 037226-Upxdfdyhhislrav, Ur; 950909-Hczkvabhdaja, Urwas developed and its performance characteristicsdetermined by [facility]. It has not been cleared or approvedby the Food and Drug Administration. Performed By: #### L 3400.4000, L500.4050, L3300.1000, L509.6000, L801.1541, L3300.1500, L3300.1100 #### [facility] [address] [place], [address] Metanephrines,U 31 ug/L Normal [facility] Comment on above: Order Comment: Test( s) 580325-Oxixjjbqszvftrq, Ur; 596480-Qaiqlgqghsxu, Urwas developed and its performance characteristicsdetermined by [facility]. It has not been cleared or approvedby the Food and Drug Administration. Performed By: #### L 3400.4000, L500.4050, L3300.1000, L509.6000, L801.1541, L3300.1500, L3300.1100 #### [facility] [address] [place], [address] Normetan,UR 24h 371 ug/24 hr Normal 131-612 [facility] Comment on above: Order Comment: Test( s) 861976-Mzwjoxpkymduvxq, Ur; 405665-Ssyqqspohtku, Urwas developed and its performance characteristicsdetermined by [facility]. It has not been cleared or approvedby the Food and Drug Administration. Performed By: #### L 3400.4000, L500.4050, L3300.1000, L509.6000, L801.1541, L3300.1500, L3300.1100 #### [facility] [address] [place], [address] Normetanephrine 309 ug/L Normal Undefined [facility] Comment on above: Order Comment: Test( s) 717164-Nunpioemyfwjuvk, Ur; 211863-Vjakogrxhuot, Urwas developed and its performance characteristicsdetermined by [facility]. It has not been cleared or approvedby the Food and Drug Administration. Performed By: #### L 3400.4000, L500.4050, L3300.1000, L509.6000, L801.1541, L3300.1500, L3300.1100 #### [facility] [address] [place], [address] Adrenocorticotropic Hormoneo n 04-30-2024 ACTH 14.4 pg/mL Normal 7.2-63.3 [facility] Comment on above: Order Comment: Test( s) 598112-Qxrda Activity, Plasma was developed and its performance characteristics determined by [facility]. It has not been cleared or approved by the Food and Drug Administration. N N Result Comment: ACTH reference interval for samples collected between 7 and 10 AM. Performed at: [address] [id number] Supervisor Word Processing: Robson Barclay MD, Phone: [phone] Performed at: [address] [id number] Supervisor Word Processing: Jaxon Champagne PhD, Phone: [phone] Performed By: #### L 3400.4000, L500.4050, L3300.1000, L509.6000, L801.1541, L3300.1500, L3300.1100 #### [facility] [address] [place], [address] Aldosterone, Serumon 024 ALDOSTERONE,S 11.1 ng/dL Normal 0.0-30.0 [facility] Comment on above: Order Comment: Test( s) 021192-Mngzk Activity, Plasma was developed and its performance characteristics determined by [facility]. It has not been cleared or approved by the Food and Drug Administration. N N Performed By: #### L 3400.4000, L500.4050, L3300.1000, L509.6000, L801.1541, L3300.1500, L3300.1100 #### [facility] [address] [place], [place], [address] DHEA Sulfateon 04-30-2024 DHEA SULFATE 38.1 ug/dL Low 41.2-243.7 [facility] Comment on above: Order Comment: Test( s) 751882-Ecbwb Activity, Plasma was developed and its performance characteristics determined by [facility]. It has not been cleared or approved by the Food and Drug Administration. N N Performed By: #### L 3400.4000, L500.4050, L3300.1000, L509.6000, L801.1541, L3300.1500, L3300.1100 #### [facility] [address] [place], [address] Miscellaneous Lab Procedureo n 04-30-2024 MISC LAB TEST Normal [facility] Comment on above: Order Comment: [id number] LAV CHILL [id number] METANEPHRI FRAC PL LAV CHILL Result Comment: TEST RESULTS LIMITS Metanephrines, Frac., Pl. Free Normetanephrine, Pl, 73.0 pg/mL 0.0-244.0 Metanephrine, Pl, <25.0 pg/mL 0.0-88.0 TESTING PERFORMED AT [facility]. ORIGINAL REPORT ON FILE IN LAB CONTAINS ADDITIONAL TEST SITE INFORMATION. Performed By: #### L 3400.4000, L500.4050, L3300.1000, L509.6000, L801.1541, L3300.1500, L3300.1100 #### [facility] [address] [place], [address] Renin, Plasmaon 04-30-2024 RENIN, PLASMA 1.312 ng/mL/hr Normal 0.167-5.380 [facility] Comment on above: Order Comment: Test( s) 853960-Brkis Activity, Plasma was developed and [facility] It has not been cleared or approved by the Food and Drug Administration. N N Performed By: #### L 3400.4000, L500.4050, L3300.1000, L509.6000, L801.1541, L3300.1500, L3300.1100 #### [facility] [address] [place], [address] 24 HR Urine Creatinineon UR COLLECT TIME 24.0 HOURS Normal 24.0 [facility] Comment on above: Order Comment: LYTES URINE-NA AND K Performed By: #### L 3600.5400, L502.000, L501.5280, L3600.1100, L3700.2000 #### [facility] [address] [place], [address] UR TOTAL VOLUME 1.20 Normal [facility] Comment on above: Order Comment: LYTES URINE-NA AND K Performed By: #### L 3600.5400, L502.000, L501.5280, L3600.1100, L3700.2000 #### [facility] [address] [place], [address] UR.CREAT/24hr 1.05 g/24 HR Normal 0.70-1.90 [facility] Comment on above: Order Comment: LYTES URINE-NA AND K Performed By: #### L 3600.5400, L502.000, L501.5280, L3600.1100, L3700.2000 #### [facility] [address] [place], [address] URINE CREAT 87.40 mg/dL Normal NO RANGE EST. [facility] Comment on above: Order Comment: LYTES URINE-NA AND K Performed By: #### L 3600.5400, L502.000, L501.5280, L3600.1100, L3700.1999 #### [facility] [address] [place], [address] CORTISOL SERUMon 04-27-2024 CORTISOL 17.20 ug/dL Normal 3.44-22.45 [facility] Comment on above: Result Comment: Adul t (AM) 5.27 - 22.45 ug/dL Adult (PM) 3.44 - 16.76 ug/dL Please note revised CORTISOL reference range effective 2019. Performed By: #### L 3400.4000, L500.4050, L3300.1000, L509.6000, L801.1541, L3300.1500, L3300.1100 #### [facility] [address] [place], [address] Comprehensive Metabolic Prof ilon 04-27-2024 Albumin [Mass/Vol] 3.4 g/dL Normal 3.2-5.0 [facility] Comment on above: Performed By: #### L 3400.4000, L500.4050, L3300.1000, L509.6000, L801.1541, L3300.1500, L3300.1100 #### [facility] [address] [place], [address] Albumin/Globulin [Mass ratio] 1.0 {ratio} Normal 0.9-2.4 [facility] Comment on above: Performed By: #### L 3400.4000, L500.4050, L3300.1000, L509.6000, L801.1541, L3300.1500, L3300.1100 #### [facility] [address] [place], [address] ALK P 86 U/L Normal 45-117 [facility] Comment on above: Performed By: #### L 3400.4000, L500.4050, L3300.1000, L509.6000, L801.1541, L3300.1500, L3300.1100 #### [facility] [address] [place], [address] ALT [Catalytic activity/Vol] 20 U/L Normal 13-56 [facility] Comment on above: Performed By: #### L 3400.4000, L500.4050, L3300.1000, L509.6000, L801.1541, L3300.1500, L3300.1100 #### [facility] [address] [place], [address] AST [Catalytic activity/Vol] 18 U/L Normal 15-37 [facility] Comment on above: Performed By: #### L 3400.4000, L500.4050, L3300.1000, L509.6000, L801.1541, L3300.1500, L3300.1100 #### [facility] [address] [place], [address] Bilirubin [Mass/Vol] 0.40 mg/dL Normal 0.20-1.00 [facility] Comment on above: Result Comment: For patients on eltrombopag therapy, use of Dimension [place]ill[place] TBIL is not recommended. Performed By: #### L 3400.4000, L500.4050, L3300.1000, L509.6000, L801.1541, L3300.1500, L3300.1100 #### [facility] [address] [place], [address] BUN/CRE 8.6 RATIO Low 10-20 [facility] Comment on above: Performed By: #### L 3400.4000, L500.4050, L3300.1000, L509.6000, L801.1541, L3300.1500, L3300.1100 #### [facility] [address] [place], [address] CA,Total 9.7 mg/dL Normal 8.5-10.1 [facility] Comment on above: Performed By: #### L 3400.4000, L500.4050, L3300.1000, L509.6000, L801.1541, L3300.1500, L3300.1100 #### [facility] [address] [place], [address] Chloride [Moles/Vol] 104 mmol/L Normal 98-107 [facility] Comment on above: Performed By: #### L 3400.4000, L500.4050, L3300.1000, L509.6000, L801.1541, L3300.1500, L3300.1100 #### [facility] [address] [place], [address] CO2 [Moles/Vol] 29.0 mmol/L Normal 21.0-32.0 [facility] Comment on above: Performed By: #### L 3400.4000, L500.4050, L3300.1000, L509.6000, L801.1541, L3300.1500, L3300.1100 #### [facility] [address] [place], [address] Creatinine [Mass/Vol] 1.52 mg/dL High 0.55-1.02 [facility] Comment on above: Result Comment: The validity of the calculated GFR GFRAA in patients over 70 years has not been determined. Clinical correlation is essential. Performed By: #### L 3400.4000, L500.4050, L3300.1000, L509.6000, L801.1541, L3300.1500, L3300.1100 #### [facility] [address] [place], [address] EST GFR - AA 46 mL/min Low >60 [facility] Comment on above: Result Comment: Afri can [place] GFR Calc Performed By: #### L 3400.4000, L500.4050, L3300.1000, L509.6000, L801.1541, L3300.1500, L3300.1100 #### [facility] [address] [place], [address] GAP 6 Normal 5-15 [facility] Comment on above: Performed By: #### L 3400.4000, L500.4050, L3300.1000, L509.6000, L801.1541, L3300.1500, L3300.1100 #### [facility] [address] [place], [address] GFR/1.73 sq M.predicted among non-blacks MDRD (S/P/Bld) [Vol rate/Area] 38 mL/min/{1.73_m2} Low >60 [facility] Comment on above: Result Comment: Non- GFR Calc Performed By: #### L 3400.4000, L500.4050, L3300.1000, L509.6000, L801.1541, L3300.1500, L3300.1100 #### [facility] [address] [place], [address] Globulin (S) [Mass/Vol] 3.3 g/dL Normal 2.2-4.2 [facility] Comment on above: Performed By: #### L 3400.4000, L500.4050, L3300.1000, L509.6000, L801.1541, L3300.1500, L3300.1100 #### [facility] [address] [place], [address] Glucose [Mass/Vol] 92 mg/dL Normal 74-106 [facility] Comment on above: Performed By: #### L 3400.4000, L500.4050, L3300.1000, L509.6000, L801.1541, L3300.1500, L3300.1100 #### [facility] [address] [place], [address] Potassium [Moles/Vol] 3.8 mmol/L Normal 3.5-5.1 [facility] Comment on above: Performed By: #### L 3400.4000, L500.4050, L3300.1000, L509.6000, L801.1541, L3300.1500, L3300.1100 #### [facility] [address] [place], [address] Sodium [Moles/Vol] 139 mmol/L Normal 136-145 [facility] Comment on above: Performed By: #### L 3400.4000, L500.4050, L3300.1000, L509.6000, L801.1541, L3300.1500, L3300.1100 #### [facility] [address] [place], [address] T PROT 6.7 g/dL Normal 6.4-8.2 [facility] Comment on above: Performed By: #### L 3400.4000, L500.4050, L3300.1000, L509.6000, L801.1541, L3300.1500, L3300.1100 #### [facility] [address] [place], [address] Urea nitrogen [Mass/Vol] 13 mg/dL Normal 7-18 [facility] Comment on above: Performed By: #### L 3400.4000, L500.4050, L3300.1000, L509.6000, L801.1541, L3300.1500, L3300.1100 #### [facility] [address] [place], [address] Electrolytes, 24 HR URon Potassium [Moles/Vol] 18.8 mmol/L Normal Not Establ. [facility] Comment on above: Order Comment: LYTES URINE-NA AND K Performed By: #### L 3600.5400, L502.000, L501.5280, L3600.1100, L3700.1999 #### [facility] [address] [place], [address] UR CL TNP Normal Not Establ. [facility] Comment on above: Order Comment: LYTES URINE-NA AND K Performed By: #### L 3600.5400, L502.000, L501.5280, L3600.1100, L3700.1999 #### [facility] [address] [place], [address] UR CL/24 hr TNP Normal 110-250 [facility] Comment on above: Order Comment: LYTES URINE-NA AND K Performed By: #### L 3600.5400, L502.000, L501.5280, L3600.1100, L3700.1999 #### [facility] [address] [place], [address] UR K/24 HR 22.6 mmol/24h Low 25-125 [facility] Comment on above: Order Comment: LYTES URINE-NA AND K Performed By: #### L 3600.5400, L502.000, L501.5280, L3600.1100, L3700.1999 #### [facility] [address] [place], [address] UR NA 9 mmol/L Normal Not Establ. [facility] Comment on above: Order Comment: LYTES URINE-NA AND K Performed By: #### L 3600.5400, L502.000, L501.5280, L3600.1100, L3700.1999 #### [facility] [address] [place], [address] UR NA/24HR 11 mmol/24h Low 40-220 [facility] Comment on above: Order Comment: LYTES URINE-NA AND K Performed By: #### L 3600.5400, L502.000, L501.5280, L3600.1100, L3700.2000 #### [facility] [address] [place], [address] UR TOTAL VOLUME 1200 mL Normal [facility] Comment on above: Order Comment: LYTES URINE-NA AND K Performed By: #### L 3600.5400, L502.000, L501.5280, L3600.1100, L3700.2000 #### [facility] [address] [place], [address] Hips B/L min 2 views w/ Pelv victor manuel 04-19-2024 Hips B/L min 2 views w/ Pelvis [facility] Services [address] [place] [address] Hips B/L min 2 views w/ Pelvis MR#: [id number] Acct: [id number] Name: SARIKA AVILA Rep #: [id number] : 1970 F 53 From: [facility] PCP: Dr. Dina Wu MD Status: REG CLI Study: Hips B/L min 2 views w/ Pelvis Date of Exam: 0 04/19/24 Exam# [id number] Ordering Dr: Dina Wu MD [id number] INDICATION: Bilateral Hip Pain EXAMINATION/TECHNIQUE: X-RAY - XR Hips Bilateral with Pelvis when performed; 2 Views COMPARISON: No relevant prior comparison study available FINDINGS: PELVIC BONES: No displaced fracture, destructive or sclerotic lesions. Note that overlapping bowel shadows may however obscure fine detail. Sacroiliac joints are unremarkable. No widening of the pubic symphysis. HIPS: The articular structures are unremarkable. No displaced fracture seen in this frontal view. SOFT TISSUES: No soft tissue swelling or gas. Multiple phleboliths are present in the pelvis. RAD/Hips B/L min 2 views w/ Pelvis IMPRESSION: 1. No evidence of displaced pelvic or hip fracture. Electronically Signed: [place] Menard MD at 23:53 EDT , CC: Dr. Dina Wu MD Wind Turbine Engineer: Signed Normal [facility] Knee 4 or More Viewson 04-19 Knee 4 or More Views [facility] Imaging Services [address] [place] [id number] Knee 4 or More Views MR#: [id number] Acct: [id number] Name: SARIKA AVILA Rep #: [id number] : 1970 F 53 From: [facility] PCP: Dr. Dina Wu MD Status: REG CLI Study: Knee 4 or More Views Date of Exam: 04/19/24 Exam# [id number] Ordering Dr: iDna Wu MD [id number] INDICATION: Bilateral Knee Pain EXAMINATION/TECHNIQUE: X-RAY - LEFT XR Knee Complete 4 Views or More 4 VIEWS COMPARISON: No relevant prior comparison study available FINDINGS: SOFT TISSUES: No soft tissue swelling or gas. No radiopaque foreign body. BONES/JOINTS: No acute fracture or subluxation.. Normal alignment. There is a trace effusion.. No sclerotic or destructive changes observed. RAD/Knee 4 or More Views IMPRESSION: 1. No evidence fracture, malalignment or focal bony or joint space abnormality. 2. Trace effusion noted in the suprapatellar bursa. Electronically Signed: [place] Menard MD at 23:53 EDT , CC: Dr. Dina Wu MD Wind Turbine Engineer: Signed Normal [facility] Knee 4 or More Views [facility] Imaging Services [address] [place], [place] [id number] Knee 4 or More Views MR#: [id number] Acct: [id number] Name: SARIKA AVILA Rep #: [id number] : 1970 F 53 From: [facility] PCP: Dr. Dina Wu MD Status: REG CLI Study: Knee 4 or More Views Date of Exam: 04/19/24 Exam# [id number] Ordering Dr: Dina Wu MD [id number] INDICATION: PAIN EXAMINATION/TECHNIQUE: X-RAY - RIGHT XR Knee Complete 4 Views or More 4 VIEWS COMPARISON: No relevant prior comparison study available FINDINGS: SOFT TISSUES: There is a medial soft tissue swelling. No soft tissue gas. No radiopaque foreign body. BONES/JOINTS: No acute fracture or subluxation.. Normal alignment. Preservation of the joint space.. No sclerotic or destructive changes observed. RAD/Knee 4 or More Views IMPRESSION: 1. No evidence fracture, malalignment or focal bony or joint space abnormality. 2. Medial soft tissue swelling/bruising. No soft tissue gas or radiopaque foreign body. Electronically Signed: [place] Menard MD at 20:47 EDT , CC: Dr. Dina Wu MD Wind Turbine Engineer: Signed Normal [facility] MR/BMS.BPon 04-19-2024 MR/BMS [facility] [address], [address] [place] [address] OFFICE VISIT Date of Service: 04/19/24 MR#: [id number] Acct: [id number] Name: SARIKA AVILA Rep #: [id number] : 1970 Provider: Dr. Eddie Tran se, DO Age/Sex: 53/F Location: [facility].BP Status: Signed Intake Vital Signs 01/26/24 07:11 04/14/24 08:54 04/19/24 07:05 04/19/24 07:07 04/19/24 07:11 Height 5 ft 1 in 5 ft 1 in 5 ft 1 in 5 ft 1 in 5 ft 1 in Weight: 225 lb BMI 42.5 BP 120/82 H 131/77 H Blood Pressure Location Lt brachial Rt brachial Position Sitting Sitting Respiration 16 Pulse 68 82 Pulse Source Monitor Monitor Temp 97.6 F L Pulse Oximetry (%) 99 Oxygen Delivery Method room air BP Intake Visit Reasons: 2 M FU Allergies Corticosteroids (Glucocorticoids) (steroids) Allergy (Mild, Verified 04/19/24 07:05) psychosis doxycycline Allergy (Verified 04/19/24 07:05) Vomiting latex Allergy (Verified 04/19/24 07:05) Rash prochlorperazine (From Compazine) Allergy (Verified 04/19/24 07:05) Other Medications ???Medication ???Instructions ???Recorded ???Confirmed ???Type folic acid 800 mcg tablet 800 mcg PO DAILY 09/19/17 04/19/24 History modafinil 200 mg tablet 200 mg PO DAILY 09/19/17 04/19/24 History triamcinolone acetonide 55 mcg 1 spray intranasal DAILY 04/08/19 04/19/24 History nasal spray aerosol (Nasacort) polyethylene glycol 3350 17 17 g PO DAILY PRN Constipation 09/13/19 04/19/24 History gram/dose oral powder (Miralax) Handicap Placard #1 ea 07/27/21 04/19/24 Rx acyclovir 200 mg capsule 400 mg PO BID 07/27/21 04/19/24 History baclofen 10 mg tablet 10 mg PO .QID 07/27/21 04/19/24 History albuterol sulfate 90 mcg/actuation 1 - 2 puff inhalation Q6H PRN 04/30/22 04/19/24 Rx aerosol inhaler (ProAir HFA) shortness of breath or wheezing #8.5 grams cladribine(multiple sclerosis) 10 10 mg PO DAILY 10/02/22 04/19/24 History mg tablet (Mavenclad (8 tablet pack)) levothyroxine 88 mcg tablet 88 mcg PO DAILY@0600 #90 tabs 11/29/22 04/19/24 Rx dextromethorphan 20 mg-quinidine 1 cap PO Q12H 05/15/23 04/19/24 History 10 mg capsule (Nuedexta) metronidazole 0.75 % topical gel 1 applic topical QHS 05/15/23 04/19/24 History gabapentin 100 mg capsule mg PO 08/27/23 04/19/24 History triamterene 37.5 See Rx Instructions .Route 10/29/23 04/19/24 Rx mg-hydrochlorothiazide 25 mg tablet .COMPLEX #90 tabs bupropion HCl 300 mg 24 hr tablet, 300 mg PO QAM #90 tabs 01/26/24 04/19/24 Rx extended release desvenlafaxine succinate 50 mg See Rx Instructions .Route 01/26/24 04/19/24 Rx tablet,extended release 24 hr .COMPLEX #90 tabs PFSH Medical History (Updated 04/14/24 @ 11:[address] Dina Wu MD) Post-menopausal Decreased mobility Left wrist sprain Seizure-like activity Preventative health care CKD (chronic kidney disease), stage III Macrocytosis Syncope Urinary frequency Pseudobulbar affect Rosacea PTSD (post-traumatic stress disorder) Major depressive disorder Chronic constipation Anxiety and depression NATHALIE (obstructive sleep apnea) Right foot pain Fatigue Hypersomnolence Type 2 diabetes mellitus History of left heart catheterization (LHC) ( 01/25/21) Chest pain Chronic back pain Essential (primary) hypertension Urinary urgency Rectocele Obesity (BMI 30-39.9) Low back pain Neuropathy Hormone deficiency GERD (gastroesophageal reflux disease) Pre-diabetes Back problem Asthma Arthritis Anemia Collapse of left lung History of pneumonia Osteopenia Diverticulitis Depression Multiple sclerosis (10/30/16) Hypothyroidism Bradycardia Surgical History Hx of repair of rotator cuff History of rectocele History of bronchoscopy History of tonsillectomy Hx of cholecystectomy History of hysterectomy Family History Mother Alcoholism Anemia Asthma COPD (chronic obstructive pulmonary disease) Arthritis Kidney disease Mental disorder Respiratory abnormality CVA (cerebral vascular accident) Grandfather Angina pectoris Myocardial infarction Grandmother Arthritis Hypertension Osteoporosis CVA (cerebral vascular accident) Sister Crohn disease Bowel disease Uncle Parkinsons disease Social History Smoking Status: Former smoker quit date: 06/14/21 Tobacco: How many years used: 30 Electronic Cigarette Use: with nicotine second hand exposure: Yes alcohol intake: never substance use type: marijuana and other details: Has a medical marijuana card. what type of physical activity do you participate in: none HPI History of Present Illness History provided by: patient HPI: Sarika Millard (more content not included)... Normal [facility] CCP IgG Antibodieson 024 CCP IgG Ab. 4 units Normal 0-19 [facility] Comment on above: Result Comment: Nega tive <20 Weak positive 20 - 39 Moderate positive 40 - 59 Strong positive >59 Performed at: - [address] [id number] Supervisor Word Processing: Jaxon Champagne PhD, Phone: [phone] Performed By: #### L 3400.4000, L500.4050, L3300.1000, L509.6000, L801.1541, L3300.1500, L3300.1100 #### [facility] [address] [place], [place], [address] Internal Medicine Office Vis jair 04-14-2024 Internal Medicine Office Visit [facility] [address] [place] [address] [place] [address] OFFICE VISIT Date of Service: 04/14/24 MR#: [id number] Acct: [id number] Name: SARIKA AVILA Rep #: [id number] : 1970 Provider: Dr. Dina hadley MD Age/Sex: 53/F Location: [facility] Status: Signed Intake Vital Signs 01/07/24 09:38 01/26/24 07:11 04/14/24 08:54 Height 5 ft 1 in 5 ft 1 in 5 ft 1 in Weight: 225 lb BMI 42.5 BP 120/82 H Blood Pressure Location Lt brachial Position Sitting Respiration 16 Pulse 68 Pulse Source Monitor Temp 97.6 F L Temp Source Temporal Pulse Oximetry (%) 99 Oxygen Delivery Method room air Intake Visit Reasons: 3 M FU Chief Complaint: 3m f/u Liquid Yeast Supervisor Required: No Accompanied by: Self Is patient in pain?: No Allergies Corticosteroids (Glucocorticoids) (steroids) Allergy (Mild, Verified 04/14/24 08:54) psychosis doxycycline Allergy (Verified 04/14/24 08:50) Vomiting latex Allergy (Verified 04/14/24 08:50) Rash prochlorperazine (From Compazine) Allergy (Verified 04/14/24 08:50) Other Medications ???Medication ???Instructions ???Recorded ???Confirmed ???Type folic acid 800 mcg tablet 800 mcg PO DAILY 09/19/17 04/14/24 History modafinil 200 mg tablet 200 mg PO DAILY 09/19/17 04/14/24 History triamcinolone acetonide 55 mcg 1 spray intranasal DAILY 04/08/19 04/14/24 History nasal spray aerosol (Nasacort) polyethylene glycol 3350 17 17 g PO DAILY PRN Constipation 09/13/19 04/14/24 History gram/dose oral powder (Miralax) Handicap Placard #1 ea 07/27/21 04/14/24 Rx acyclovir 200 mg capsule 400 mg PO BID 07/27/21 04/14/24 History baclofen 10 mg tablet 10 mg PO .QID 07/27/21 04/14/24 History albuterol sulfate 90 mcg/actuation 1 - 2 puff inhalation Q6H PRN 04/30/22 04/14/24 Rx aerosol inhaler (ProAir HFA) shortness of breath or wheezing #8.5 grams cladribine(multiple sclerosis) 10 10 mg PO DAILY 10/02/22 04/14/24 History mg tablet (Mavenclad (8 tablet pack)) levothyroxine 88 mcg tablet 88 mcg PO DAILY@0600 #90 tabs 11/29/22 04/14/24 Rx dextromethorphan 20 mg-quinidine 1 cap PO Q12H 05/15/23 04/14/24 History 10 mg capsule (Nuedexta) metronidazole 0.75 % topical gel 1 applic topical QHS 05/15/23 04/14/24 History gabapentin 100 mg capsule mg PO 08/27/23 04/14/24 History triamterene 37.5 See Rx Instructions .Route 10/29/23 04/14/24 Rx mg-hydrochlorothiazide 25 mg tablet .COMPLEX #90 tabs bupropion HCl 300 mg 24 hr tablet, 300 mg PO QAM #90 tabs 01/26/24 04/14/24 Rx extended release desvenlafaxine succinate 50 mg See Rx Instructions .Route 01/26/24 04/14/24 Rx tablet,extended release 24 hr .COMPLEX #90 tabs esterified 1 tab PO DAILY #30 tabs 03/24/24 04/14/24 Rx estrogens-methyltestosteron e 0.625 mg-1.25 mg tablet PFSH Medical History (Updated 04/14/24 @ 11:[address] Dina Wu MD) Post-menopausal Decreased mobility Left wrist sprain Seizure-like activity Preventative health care CKD (chronic kidney disease), stage III Macrocytosis Syncope Urinary frequency Pseudobulbar affect Rosacea PTSD (post-traumatic stress disorder) Major depressive disorder Chronic constipation Anxiety and depression NATHALIE (obstructive sleep apnea) Right foot pain Fatigue Hypersomnolence Type 2 diabetes mellitus History of left heart catheterization (LHC) ( 01/25/21) Chest pain Chronic back pain Essential (primary) hypertension Urinary urgency Rectocele Obesity (BMI 30-39.9) Low back pain Neuropathy Hormone deficiency GERD (gastroesophageal reflux disease) Pre-diabetes Back problem Asthma Arthritis Anemia Collapse of left lung History of pneumonia Osteopenia Diverticulitis Depression Multiple sclerosis (10/30/16) Hypothyroidism Bradycardia Surgical History Hx of repair of rotator cuff History of rectocele History of bronchoscopy History of tonsillectomy Hx of cholecystectomy History of hysterectomy Family History Mother Alcoholism Anemia Asthma COPD (chronic obstructive pulmonary disease) Arthritis Kidney disease Mental disorder Respiratory abnormality CVA (cerebral vascular accident) Grandfather Angina pectoris Myocardial infarction Grandmother Arthritis Hypertension Osteoporosis CVA (cerebral vascular accident) Sister Crohn disease Bowel disease Uncle Parkinsons disease Social History Smoking Status: Former smoker quit date: 06/14/21 Tobacco: How many years used: 30 Electronic Cigarette Use: with nicotine second hand exposure: Yes alcohol intake: never substance use type: marijuana and other details: Has a medical marijuana card. (more content not included)... Normal [facility] Rheumatoid Factoron 04-14-20 24 RHEUMATOID FAC < 10.0 Normal <15 [facility] Comment on above: Performed By: #### L 3400.4000, L500.4050, L3300.1000, L509.6000, L801.1541, L3300.1500, L3300.1100 #### [facility] [address] [facility] [facility] [place], [place], [id number] CBC-Complete Blood Cnt No Di ffon 04-12-2024 Erythrocyte distribution width (RBC) [Ratio] 12.5 % Normal 11.6-14.6 [facility] Comment on above: Performed By: #### L 3400.4000, L500.4050, L3300.1000, L509.6000, L801.1541, L3300.1500, L3300.1100 #### [facility] [address] [place], [place], [id number] Hematocrit (Bld) [Volume fraction] 40.8 % Normal 37-47 [facility] Comment on above: Performed By: #### L 3400.4000, L500.4050, L3300.1000, L509.6000, L801.1541, L3300.1500, L3300.1100 #### [facility] [address] [place], [address] Hemoglobin (Bld) [Mass/Vol] 13.7 g/dL Normal 12.0-15.0 [facility] Comment on above: Performed By: #### L 3400.4000, L500.4050, L3300.1000, L509.6000, L801.1541, L3300.1500, L3300.1100 #### [facility] [address] [place], [address] MCH (RBC) [Entitic mass] 33.4 pg High 27.0-32.0 [facility] Comment on above: Performed By: #### L 3400.4000, L500.4050, L3300.1000, L509.6000, L801.1541, L3300.1500, L3300.1100 #### [facility] [address] [place], [address] MCHC (RBC) [Mass/Vol] 33.6 g/dL Normal 32-36 [facility] Comment on above: Performed By: #### L 3400.4000, L500.4050, L3300.1000, L509.6000, L801.1541, L3300.1500, L3300.1100 #### [facility] [address] [place], [address] MCV (RBC) [Entitic vol] 99.5 fL High 81-99 [facility] Comment on above: Performed By: #### L 3400.4000, L500.4050, L3300.1000, L509.6000, L801.1541, L3300.1500, L3300.1100 #### [facility] [address] [place], [address] Platelet mean volume (Bld) [Entitic vol] 8.8 fL Normal 6.2-12.0 [facility] Comment on above: Performed By: #### L 3400.4000, L500.4050, L3300.1000, L509.6000, L801.1541, L3300.1500, L3300.1100 #### [facility] [address] [place], [address] Platelets (Bld) [#/Vol] 266 10*3/uL Normal 150-450 [facility] Comment on above: Performed By: #### L 3400.4000, L500.4050, L3300.1000, L509.6000, L801.1541, L3300.1500, L3300.1100 #### [facility] [address] [place], [address] RBC (Bld) [#/Vol] 4.10 10*6/uL Low 4.2-5.4 [facility] Comment on above: Performed By: #### L 3400.4000, L500.4050, L3300.1000, L509.6000, L801.1541, L3300.1500, L3300.1100 #### [facility] [address] [place], [address] RDW SD 46.1 fl High 35.1-43.9 [facility] Comment on above: Performed By: #### L 3400.4000, L500.4050, L3300.1000, L509.6000, L801.1541, L3300.1500, L3300.1100 #### [facility] [address] [place], [address] WBC (Bld) [#/Vol] 5.5 10*3/uL Normal 4.4-11.0 [facility] Comment on above: Performed By: #### L 3400.4000, L500.4050, L3300.1000, L509.6000, L801.1541, L3300.1500, L3300.1100 #### [facility] [address] [place], [address] Comprehensive Metabolic Prof ilon 04-12-2024 Albumin [Mass/Vol] 3.6 g/dL Normal 3.2-5.0 [facility] Comment on above: Performed By: #### L 3400.4000, L500.4050, L3300.1000, L509.6000, L801.1541, L3300.1500, L3300.1100 #### [facility] [address] [place], [address] Albumin/Globulin [Mass ratio] 1.0 {ratio} Normal 0.9-2.4 [facility] Comment on above: Performed By: #### L 3400.4000, L500.4050, L3300.1000, L509.6000, L801.1541, L3300.1500, L3300.1100 #### [facility] [address] [place], [address] ALK P 95 U/L Normal 45-117 [facility] Comment on above: Performed By: #### L 3400.4000, L500.4050, L3300.1000, L509.6000, L801.1541, L3300.1500, L3300.1100 #### [facility] [address] [place], [address] ALT [Catalytic activity/Vol] 25 U/L Normal 13-56 [facility] Comment on above: Performed By: #### L 3400.4000, L500.4050, L3300.1000, L509.6000, L801.1541, L3300.1500, L3300.1100 #### [facility] [address] [place], [address] AST [Catalytic activity/Vol] 24 U/L Normal 15-37 [facility] Comment on above: Performed By: #### L 3400.4000, L500.4050, L3300.1000, L509.6000, L801.1541, L3300.1500, L3300.1100 #### [facility] [address] [place], [address] Bilirubin [Mass/Vol] 0.40 mg/dL Normal 0.20-1.00 [facility] Comment on above: Result Comment: For patients on eltrombopag therapy, use of Dimension [place] TBIL is not recommended. Performed By: #### L 3400.4000, L500.4050, L3300.1000, L509.6000, L801.1541, L3300.1500, L3300.1100 #### [facility] [address] [place], [address] BUN/CRE 10.8 RATIO Normal 10-20 [facility] Comment on above: Performed By: #### L 3400.4000, L500.4050, L3300.1000, L509.6000, L801.1541, L3300.1500, L3300.1100 #### [facility] [address] [place], [address] CA,Total 9.5 mg/dL Normal 8.5-10.1 [facility] Comment on above: Performed By: #### L 3400.4000, L500.4050, L3300.1000, L509.6000, L801.1541, L3300.1500, L3300.1100 #### [facility] [address] [place], [address] Chloride [Moles/Vol] 105 mmol/L Normal 98-107 [facility] Comment on above: Performed By: #### L 3400.4000, L500.4050, L3300.1000, L509.6000, L801.1541, L3300.1500, L3300.1100 #### [facility] [address] [place], [address] CO2 [Moles/Vol] 25.0 mmol/L Normal 21.0-32.0 [facility] Comment on above: Performed By: #### L 3400.4000, L500.4050, L3300.1000, L509.6000, L801.1541, L3300.1500, L3300.1100 #### [facility] [address] [place], [address] Creatinine [Mass/Vol] 1.57 mg/dL High 0.55-1.02 [facility] Comment on above: Result Comment: The validity of the calculated GFR GFRAA in patients over 70 years has not been determined. Clinical correlation is essential. Performed By: #### L 3400.4000, L500.4050, L3300.1000, L509.6000, L801.1541, L3300.1500, L3300.1100 #### [facility] [address] [place], [place], [id number] (388) EST GFR - AA 44 mL/min Low >60 [facility] Comment on above: Result Comment: Afri can [place] GFR Calc Performed By: #### L 3400.4000, L500.4050, L3300.1000, L509.6000, L801.1541, L3300.1500, L3300.1100 #### [facility] [address] [place], [place], [id number] (864) GAP 9 Normal 5-15 [facility] Comment on above: Performed By: #### L 3400.4000, L500.4050, L3300.1000, L509.6000, L801.1541, L3300.1500, L3300.1100 #### [facility] [address] [place], [place], [id number] (461) GFR/1.73 sq M.predicted among non-blacks MDRD (S/P/Bld) [Vol rate/Area] 36 mL/min/{1.73_m2} Low >60 [facility] Comment on above: Result Comment: Non- GFR Calc Performed By: #### L 3400.4000, L500.4050, L3300.1000, L509.6000, L801.1541, L3300.1500, L3300.1100 #### [facility] [address] [place], [address] Globulin (S) [Mass/Vol] 3.5 g/dL Normal 2.2-4.2 [facility] Comment on above: Performed By: #### L 3400.4000, L500.4050, L3300.1000, L509.6000, L801.1541, L3300.1500, L3300.1100 #### [facility] [address] [place], [address] Glucose [Mass/Vol] 120 mg/dL High 74-106 [facility] Comment on above: Result Comment: Fast ing Glucose result from 100 to 125 mg/dL suggests IMPAIRED HOMEOSTASIS per A.D.A. criteria. Performed By: #### L 3400.4000, L500.4050, L3300.1000, L509.6000, L801.1541, L3300.1500, L3300.1100 #### [facility] [address] [place], [address] Potassium [Moles/Vol] 3.6 mmol/L Normal 3.5-5.1 [facility] Comment on above: Performed By: #### L 3400.4000, L500.4050, L3300.1000, L509.6000, L801.1541, L3300.1500, L3300.1100 #### [facility] [address] [place], [address] Sodium [Moles/Vol] 139 mmol/L Normal 136-145 [facility] Comment on above: Performed By: #### L 3400.4000, L500.4050, L3300.1000, L509.6000, L801.1541, L3300.1500, L3300.1100 #### [facility] [address] [place], [address] T PROT 7.1 g/dL Normal 6.4-8.2 [facility] Comment on above: Performed By: #### L 3400.4000, L500.4050, L3300.1000, L509.6000, L801.1541, L3300.1500, L3300.1100 #### [facility] [address] [place], [address] Urea nitrogen [Mass/Vol] 17 mg/dL Normal 7-18 [facility] Comment on above: Performed By: #### L 3400.4000, L500.4050, L3300.1000, L509.6000, L801.1541, L3300.1500, L3300.1100 #### [facility] [address] [place], [address] Free T3on 04-12-2024 Free T3 [Mass/Vol] 2.6 pg/mL Normal 2.18-3.98 [facility] Comment on above: Performed By: #### L 3400.4000, L500.4050, L3300.1000, L509.6000, L801.1541, L3300.1500, L3300.1100 #### [facility] [address] [place], [place], [id number] Hemoglobin A1con 04-12-2024 HbA1c (Bld) [Mass fraction] 5.5 % Normal 3.8-5.6 [facility] Comment on above: Result Comment: Norm al < 5.7 % Prediabetic 5.7 - 6.4 % Diabetic >or= 6.5 % Please note range changes. Performed By: #### L 3400.4000, L500.4050, L3300.1000, L509.6000, L801.1541, L3300.1500, L3300.1100 #### [facility] [address] [place], [address] Lipid Profileon 04-12-2024 Cholesterol [Mass/Vol] 193 mg/dL Normal 200 [facility] Comment on above: Result Comment: <200 mg/dL Desirable 200-240 mg/dL Borderline >240 mg/dL High Risk Performed By: #### L 3400.4000, L500.4050, L3300.1000, L509.6000, L801.1541, L3300.1500, L3300.1100 #### [facility] [address] [place], [address] Cholesterol in HDL [Mass/Vol] 58 mg/dL Normal [facility] Comment on above: Result Comment: The drugs N-Acetylcysteine and Metamizole may falsely depress this assay. Reference Range HDL <40 mg/dL Low HDL Cholesterol HDL >or= 60 mg/dL High HDL Cholesterol Performed By: #### L 3400.4000, L500.4050, L3300.1000, L509.6000, L801.1541, L3300.1500, L3300.1100 #### [facility] [address] [place], [address] Cholesterol in LDL [Mass/Vol] 118 mg/dL Normal 0-130 [facility] Comment on above: Performed By: #### L 3400.4000, L500.4050, L3300.1000, L509.6000, L801.1541, L3300.1500, L3300.1100 #### [facility] [address] [place], [place], [id number] ([address] Cholesterol in VLDL [Mass/Vol] 17 mg/dL Normal 5-40 [facility] Comment on above: Performed By: #### L 3400.4000, L500.4050, L3300.1000, L509.6000, L801.1541, L3300.1500, L3300.1100 #### [facility] [address] [place], [address] Triglyceride [Mass/Vol] 87 mg/dL Normal [facility] Comment on above: Result Comment: The drugs N-Acetylcysteine and Metamizole may falsely depress this assay. Serum Triglycerides Reference Interval Normal <150 mg/dL Borderline high 150 - 199 mg/dL High 200 - 499 mg/dL Very High > or = 500 mg/dL Performed By: #### L 3400.4000, L500.4050, L3300.1000, L509.6000, L801.1541, L3300.1500, L3300.1100 #### [facility] [address] [place], [address] T4 Free Directon 04-12-2024 T4 FREE DIRECT 1.01 ng/dL Normal 0.76-1.46 [facility] Comment on above: Performed By: #### L 3400.4000, L500.4050, L3300.1000, L509.6000, L801.1541, L3300.1500, L3300.1100 #### [facility] [address] [place], [address] Thyroid Stim Hormone (TSH)on 04-12-2024 TSH 2.410 uIU/mL Normal 0.358-3.740 [facility] Comment on above: Performed By: #### L 3400.4000, L500.4050, L3300.1000, L509.6000, L801.1541, L3300.1500, L3300.1100 #### [facility] [address] [place], [place], [id number] Vitamin D,25 Hydroxyon 04-12 Vitamin D 25-OH 54.2 ng/mL Normal [facility] Comment on above: Result Comment: Alysa min D 25(OH) Status Range Deficiency <20 ng/mL (50nmol/L) Insufficiency 20 - 30 ng/mL (50 - 75 nmol/L) Sufficiency 30 - 100 ng/mL (75 - 250 nmol/L) Toxicity >100 ng/mL (>250 nmol/L) Performed By: #### L 3400.4000, L500.4050, L3300.1000, L509.6000, L801.1541, L3300.1500, L3300.1100 #### [facility] [address] [place], [place], [address] CNOVon 04-01-2024 CNOV Office Visit (GYURWP ) SARIKA AVILA ([id number]) 1970 F Date Time Provider Department 04/01/24 8:00 AM GEGE JAMISON GYURWP During your visit today, we recorded the following information about you: Blood pressure Weight Height 110/68 103.9 kg 1.6 m Gege Jamison MD 04/01/2024 8:05 AM Signed Intravesical Botox Injection Procedure Note UNIVERSAL PROTOCOL / SAFETY CHECKLIST Procedure to be Performed: Intravesical Botox Injection Diagnosis: urge urinary incontinence Sign In: A Moment of CARE was completed. Personnel directly involved with the procedure wore the appropriate PPE (Personal Protective Equipment). Patient/Surrogate Stated/Verified: PATIENT VERIFIED(optional for EMERGENT procedures): Patient name, Date of , Relevant allergies, and The intended procedure Time Out Communication: Intended patient and procedure match the source documents. Consent documented and matches the intended procedure. Sign Out: SIGN OUT (optional for EMERGENT procedures): No specimen collected. The patient was consented for the procedure and all of her questions were answered. The patient was placed in dorsal lithotomy position and prepped and draped in sterile fashion. 200 units of botox was injected in 1 cc aliquots divided 20 cc of normal saline used to reconstitute the botox into the Detrusor muscle while using a flexible cystoscope and an Injetak needle. All 20 sites were injected just superior to the trigone. A 1 cc flush with preservative-free normal saline was injected to complete the procedure. The patient tolerated the procedure well. I personally performed the entire procedure. MD Shaheen Andre Mary M, MD 04/01/2024 8:04 AM Signed BOTOX TREATMENT INFORMATION Many people think overactive bladder (OAB) is just part of getting older. However, OAB is a chronic condition that requires ongoing treatment. HOW DOES BOTOX WORK? In your body, certain chemicals travel from nerve cells to muscle cells to make your bladder contract so that you can urinate. For people who have OAB, these muscles contract uncontrollably, creating leakage, the sudden strong need to go, and going too often. BOTOX? is placed directly in the bladder muscle, helping block the nerve signals that trigger OAB. BEFORE THE PROCEDURE Before treating you with BOTOX?, we must first receive your insurance company's approval. We will submit information to your insurance company for prior authorization to proceed with treatment, which can take 2 to 4 weeks, depending on your health plan. In some cases, we will need to obtain BOTOX? through a specialty pharmacy. If this is required, the specialty pharmacy will contact you for permission to give the medication to our office and collect any needed copayment. We may have to move your appointment if approval is not received in time, but this is not typically an issue. We will also notify you if your insurance denies the procedure and discuss the next steps. You are responsible for any cost not covered by insurance. All balances must be paid in full before additional treatments will be provided. WHAT SHOULD I EXPECT? Dr. Jamison completes the procedure with support from a medical receptionist. The actual procedure takes about 3-5 minutes. The procedure may be uncomfortable, but any discomfort subsides after injections are received. You can drive and return to your regular activity, including work, immediately. The majority of patients receiving BOTOX? have at least a 50% reduction of daily leakage episodes. Many of these patients reduced their leakage episodes by 75%. Approximately 1 in 4 of these patients reported leakage episodes stopped completely. After your first treatment, you will receive a phone call from the nurse to see how the treatment is working for you. If you do not have the results you were hoping for, we can often increase the dose. BOTOX? works for up to 6 months, which is why re-treatment is about two times a year. You may start to notice results at two weeks. If your OAB symptoms return before six months, contact your doctor so you may be re-treated sooner. A minimum of 12 weeks is needed between treatments. ARE THERE ANY SIDE EFFECTS? The most common side effects after a BOTOX? treatment are: Urinary tract infection (18% vs. 6% with placebo) Painful or difficult urination (9% vs. 7% placebo) Temporary inability to empty your bladder, which may require the use of a self-catheter (6% vs. 0% placebo) (VERY UNCOMMON!) However, most patients do not experience the above side effects and find tremendous relief from this treatment. IMPORTANT REBATE INFO!!! To enroll in the Botox Savings Program: [place] [address] visit [email or web address] Call 7-166-90-BOTOX Referring Provider: MARIA DE JESUS CLEANING [[id number]] Allergies As of Date: 04/01/2024 Noted Al (more content not included)... Normal [facility] MR Brain WO and W contrast I Von 03-14-2024 * * *Final Report* * * DATE OF EXAM: Mar 14 2024 10:17AM [facility] 0295 - MRI BRAIN WO/W IVCON / PROCEDURE REASON: Multiple sclerosis (HCC) * * * * Physician Interpretation * * * * EXAMINATION: MRI THORACIC SPINE WO/W IVCON, MRI CERVICAL SPINE WO/W IVCON, MRI BRAIN WO/W IVCON HISTORY: Multiple sclerosis. Routine follow-up TECHNIQUE: Brain MRI with demyelinating disease protocol with and without gadolinium. Routine cervical and thoracic spine protocol with and without gadolinium. MQ: [id number] Contrast: 20 mL Dotarem IV COMPARISON: Outside hospital. Cervical spine MRI 08/07/2023. Brain MRI 08/07/2023. Cervical spine MRI 12/10/2022. Thoracic spine MRI 06/14/2017 RESULT: MR BRAIN: Parenchymal Findings: There are multiple foci of hyperintensity on FLAIR and T2 within the white matter, compatible with the clinical diagnosis of multiple sclerosis. New T2 Lesions: None Site(s) of New/Larger T2 Lesion(s): Not applicable Interval Improvement: None. New Enhancing Lesions: None T2 Trumann of Disease: Mild. Parenchymal Volume Loss: None. Other Significant Findings: None. MR CERVICAL: Counting reference: Craniocervical junction. Alignment: Alignment is anatomic. Craniocervical Junction: Craniocervical junction is normal. Cord Findings: Patchy foci of hyperintensity are noted in the cervical and visualized upper thoracic cord on the T2, IR and axial gradient echo images compatible with the history of multiple sclerosis. Cord T2 Plaque Trumann: Mild New T2 Lesions: None. Please note only the sagittal T2 and STIR images were used for comparison, as the axial images at different technique and the prior MRI exam do not show lesions in the axial images. Interval Cord Improvement: None New Cord Enhancing Lesions: None Cord Volume Loss: Normal morphology for age Bone marrow signal/fracture: No evidence of pathologic marrow infiltration. No evidence of prior fracture. Cervical soft tissues: The paraspinal soft tissues are within normal limits. Cervical Canal and foramina: No significant canal or foraminal stenosis in the visualized spine. MR THORACIC SPINE: Counting reference: Lumbosacral junction. For the purposes of this report, L4-5 is considered the level of the iliac crest. Alignment: Alignment is anatomic. Cord Findings: The cord is limited by motion artifact. Patchy foci of hyperintensity are noted in the cervical and visualized upper thoracic cord on the T2, IR and axial gradient echo images compatible with the history of multiple sclerosis. Cord T2 Plaque Trumann: Mild New T2 Lesions: Greater than three at the level of T6, T7, T8 and T9 cord (series 30, images 21-34) Interval Cord Improvement: None New Cord Enhancing Lesions: None Cord Volume Loss: Normal morphology for age Bone marrow signal/fracture: No evidence of pathologic marrow infiltration. No evidence of prior fracture. Thoracic soft tissues: The paraspinal soft tissues are unremarkable. Canal and foramina: The thoracic canal and foramina are patent. DIVISION OF RADIOLOGY Provider, [facility] - 03/14/2024 * * *Final Report* * * DATE OF EXAM: Mar 14 2024 10:17AM [facility] 0295 - MRI BRAIN WO/W IVCON / PROCEDURE REASON: Multiple sclerosis (HCC) * * * * Physician Interpretation * * * * EXAMINATION: MRI THORACIC SPINE WO/W IVCON, MRI CERVICAL SPINE WO/W IVCON, MRI BRAIN WO/W IVCON HISTORY: Multiple sclerosis. Routine follow-up TECHNIQUE: Brain MRI with demyelinating disease protocol with and without gadolinium. Routine cervical and thoracic spine protocol with and without gadolinium. MQ: [id number] Contrast: 20 mL Dotarem IV COMPARISON: Outside hospital. Cervical spine MRI 08/07/2023. Brain MRI 08/07/2023. Cervical spine MRI 12/10/2022. Thoracic spine MRI 06/14/2017 RESULT: MR BRAIN: Parenchymal Findings: There are multiple foci of hyperintensity on FLAIR and T2 within the white matter, compatible with the clinical diagnosis of multiple sclerosis. New T2 Lesions: None Site(s) of New/Larger T2 Lesion(s): Not applicable Interval Improvement: None. New Enhancing Lesions: None T2 Trumann of Disease: Mild. Parenchymal Volume Loss: None. Other Significant Findings: None. MR CERVICAL: Counting reference: Craniocervical junction. Alignment: Alignment is anatomic. Craniocervical Junction: Craniocervical junction is normal. Cord Findings: Patchy foci of hyperintensity are noted in the cervical and visualized upper thoracic cord on the T2, IR and axial gradient echo images compatible with the history of multiple sclerosis. Cord T2 Plaque Trumann: Mild New T2 Lesions: None. Please note only the sagittal T2 and STIR images were used for comparison, as the axial images at different technique and the prior MRI exam do not show lesions in the axial images. Interval Cord Improvement: None New Cord Enhancing Lesions: None Cord Volume Loss: Normal morphology for age Bone marrow signal/fracture: No evidence of pathologic marrow infiltration. No evidence of prior fracture. Cervical soft tissues: The paraspinal soft tissues are within normal limits. Cervical Canal and foramina: No significant canal or foraminal stenosis in the visualized spine. MR THORACIC SPINE: Counting reference: Lumbosacral junction. For the purposes of this report, L4-5 is considered the level of the iliac crest. Alignment: Alignment is anatomic. Cord Findings: The cord is limited by motion artifact. Patchy foci of hyperintensity are noted in the cervical and visualized upper thoracic cord on the T2, IR and axial gradient echo images compatible with the history of multiple sclerosis. Cord T2 Plaque Trumann: Mild New T2 Lesions: Greater than three at the level of T6, T7, T8 and T9 cord (series 30, images 21-34) Interval Cord Improvement: None New Cord Enhancing Lesions: None Cord Volume Loss: Normal morphology for age Bone marrow signal/fracture: No evidence of pathologic marrow infiltration. No evidence of prior fracture. Thoracic soft tissues: The paraspinal soft tissues are unremarkable. Canal and foramina: The thoracic canal and foramina are patent. IMPRESSION IMPRESSION: Multiple intracranial white matter lesions compatible with multiple sclerosis. No new T2 lesions and no new enhancing lesions. No significant parenchymal volume loss. Other Significant Intracranial Findings: None. Scattered intramedullary lesions compatible with the clinical history of multiple sclerosis. Greater than three new T2 intramedullary lesions and no new enhancing intramedullary lesions. No significant volume loss of the upper spinal cord for age. Other Significant Spine Findings: No significant cervical canal or foraminal stenosis. 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 Turbine Engineer: PSCB Transcribe Date/Time: Mar 14 2024 10:29A Dictated by : SHIN ALVAREZ MD This examination was interpreted and the report reviewed and electronically signed by: SHIN ALVAREZ MD on Mar 14 2024 11:06AM EST [facility] Radiology Study observation (narrative) [facility] MR Cervical spine WO and W c ontrast Madi 03-14-2024 * * *Final Report* * * DATE OF EXAM: Mar 14 2024 10:17AM [facility] 0298 - MRI CERVICAL SPINE WO/W IVCON / PROCEDURE REASON: Multiple sclerosis (HCC) * * * * Physician Interpretation * * * * EXAMINATION: MRI THORACIC SPINE WO/W IVCON, MRI CERVICAL SPINE WO/W IVCON, MRI BRAIN WO/W IVCON HISTORY: Multiple sclerosis. Routine follow-up TECHNIQUE: Brain MRI with demyelinating disease protocol with and without gadolinium. Routine cervical and thoracic spine protocol with and without gadolinium. MQ: [id number] Contrast: 20 mL Dotarem IV COMPARISON: Outside hospital. Cervical spine MRI 08/07/2023. Brain MRI 08/07/2023. Cervical spine MRI 12/10/2022. Thoracic spine MRI 06/14/2017 RESULT: MR BRAIN: Parenchymal Findings: There are multiple foci of hyperintensity on FLAIR and T2 within the white matter, compatible with the clinical diagnosis of multiple sclerosis. New T2 Lesions: None Site(s) of New/Larger T2 Lesion(s): Not applicable Interval Improvement: None. New Enhancing Lesions: None T2 Trumann of Disease: Mild. Parenchymal Volume Loss: None. Other Significant Findings: None. MR CERVICAL: Counting reference: Craniocervical junction. Alignment: Alignment is anatomic. Craniocervical Junction: Craniocervical junction is normal. Cord Findings: Patchy foci of hyperintensity are noted in the cervical and visualized upper thoracic cord on the T2, IR and axial gradient echo images compatible with the history of multiple sclerosis. Cord T2 Plaque Trumann: Mild New T2 Lesions: None. Please note only the sagittal T2 and STIR images were used for comparison, as the axial images at different technique and the prior MRI exam do not show lesions in the axial images. Interval Cord Improvement: None New Cord Enhancing Lesions: None Cord Volume Loss: Normal morphology for age Bone marrow signal/fracture: No evidence of pathologic marrow infiltration. No evidence of prior fracture. Cervical soft tissues: The paraspinal soft tissues are within normal limits. Cervical Canal and foramina: No significant canal or foraminal stenosis in the visualized spine. MR THORACIC SPINE: Counting reference: Lumbosacral junction. For the purposes of this report, L4-5 is considered the level of the iliac crest. Alignment: Alignment is anatomic. Cord Findings: The cord is limited by motion artifact. Patchy foci of hyperintensity are noted in the cervical and visualized upper thoracic cord on the T2, IR and axial gradient echo images compatible with the history of multiple sclerosis. Cord T2 Plaque Trumann: Mild New T2 Lesions: Greater than three at the level of T6, T7, T8 and T9 cord (series 30, images 21-34) Interval Cord Improvement: None New Cord Enhancing Lesions: None Cord Volume Loss: Normal morphology for age Bone marrow signal/fracture: No evidence of pathologic marrow infiltration. No evidence of prior fracture. Thoracic soft tissues: The paraspinal soft tissues are unremarkable. Canal and foramina: The thoracic canal and foramina are patent. DIVISION OF RADIOLOGY Provider, [facility] - 03/14/2024 * * *Final Report* * * DATE OF EXAM: Mar 14 2024 10:17AM [facility] 0298 - MRI CERVICAL SPINE WO/W IVCON / PROCEDURE REASON: Multiple sclerosis (HCC) * * * * Physician Interpretation * * * * EXAMINATION: MRI THORACIC SPINE WO/W IVCON, MRI CERVICAL SPINE WO/W IVCON, MRI BRAIN WO/W IVCON HISTORY: Multiple sclerosis. Routine follow-up TECHNIQUE: Brain MRI with demyelinating disease protocol with and without gadolinium. Routine cervical and thoracic spine protocol with and without gadolinium. MQ: [id number] Contrast: 20 mL Dotarem IV COMPARISON: Outside hospital. Cervical spine MRI 08/07/2023. Brain MRI 08/07/2023. Cervical spine MRI 12/10/2022. Thoracic spine MRI 06/14/2017 RESULT: MR BRAIN: Parenchymal Findings: There are multiple foci of hyperintensity on FLAIR and T2 within the white matter, compatible with the clinical diagnosis of multiple sclerosis. New T2 Lesions: None Site(s) of New/Larger T2 Lesion(s): Not applicable Interval Improvement: None. New Enhancing Lesions: None T2 Trumann of Disease: Mild. Parenchymal Volume Loss: None. Other Significant Findings: None. MR CERVICAL: Counting reference: Craniocervical junction. Alignment: Alignment is anatomic. Craniocervical Junction: Craniocervical junction is normal. Cord Findings: Patchy foci of hyperintensity are noted in the cervical and visualized upper thoracic cord on the T2, IR and axial gradient echo images compatible with the history of multiple sclerosis. Cord T2 Plaque Trumann: Mild New T2 Lesions: None. Please note only the sagittal T2 and STIR images were used for comparison, as the axial images at different technique and the prior MRI exam do not show lesions in the axial images. Interval Cord Improvement: None New Cord Enhancing Lesions: None Cord Volume Loss: Normal morphology for age Bone marrow signal/fracture: No evidence of pathologic marrow infiltration. No evidence of prior fracture. Cervical soft tissues: The paraspinal soft tissues are within normal limits. Cervical Canal and foramina: No significant canal or foraminal stenosis in the visualized spine. MR THORACIC SPINE: Counting reference: Lumbosacral junction. For the purposes of this report, L4-5 is considered the level of the iliac crest. Alignment: Alignment is anatomic. Cord Findings: The cord is limited by motion artifact. Patchy foci of hyperintensity are noted in the cervical and visualized upper thoracic cord on the T2, IR and axial gradient echo images compatible with the history of multiple sclerosis. Cord T2 Plaque Trumann: Mild New T2 Lesions: Greater than three at the level of T6, T7, T8 and T9 cord (series 30, images 21-34) Interval Cord Improvement: None New Cord Enhancing Lesions: None Cord Volume Loss: Normal morphology for age Bone marrow signal/fracture: No evidence of pathologic marrow infiltration. No evidence of prior fracture. Thoracic soft tissues: The paraspinal soft tissues are unremarkable. Canal and foramina: The thoracic canal and foramina are patent. IMPRESSION IMPRESSION: Multiple intracranial white matter lesions compatible with multiple sclerosis. No new T2 lesions and no new enhancing lesions. No significant parenchymal volume loss. Other Significant Intracranial Findings: None. Scattered intramedullary lesions compatible with the clinical history of multiple sclerosis. Greater than three new T2 intramedullary lesions and no new enhancing intramedullary lesions. No significant volume loss of the upper spinal cord for age. Other Significant Spine Findings: No significant cervical canal or foraminal stenosis. Wind Turbine Engineer: P[employer] Transcribe Date/Time: Mar 14 2024 10:29A Dictated by : SHIN ALVAREZ MD This examination was interpreted and the report reviewed and electronically signed by: SHIN ALVAREZ MD on Mar 14 2024 11:06AM [facility] MR Thoracic spine WO and W c ontrast Madi 03-14-2024 * * *Final Report* * * DATE OF EXAM: Mar 14 2024 10:17AM [facility] 0326 - MRI THORACIC SPINE WO/W IVCON / PROCEDURE REASON: Multiple sclerosis (HCC) * * * * Physician Interpretation * * * * EXAMINATION: MRI THORACIC SPINE WO/W IVCON, MRI CERVICAL SPINE WO/W IVCON, MRI BRAIN WO/W IVCON HISTORY: Multiple sclerosis. Routine follow-up TECHNIQUE: Brain MRI with demyelinating disease protocol with and without gadolinium. Routine cervical and thoracic spine protocol with and without gadolinium. MQ: [id number] Contrast: 20 mL Dotarem IV COMPARISON: Outside hospital. Cervical spine MRI 08/07/2023. Brain MRI 08/07/2023. Cervical spine MRI 12/10/2022. Thoracic spine MRI 06/14/2017 RESULT: MR BRAIN: Parenchymal Findings: There are multiple foci of hyperintensity on FLAIR and T2 within the white matter, compatible with the clinical diagnosis of multiple sclerosis. New T2 Lesions: None Site(s) of New/Larger T2 Lesion(s): Not applicable Interval Improvement: None. New Enhancing Lesions: None T2 Trumann of Disease: Mild. Parenchymal Volume Loss: None. Other Significant Findings: None. MR CERVICAL: Counting reference: Craniocervical junction. Alignment: Alignment is anatomic. Craniocervical Junction: Craniocervical junction is normal. Cord Findings: Patchy foci of hyperintensity are noted in the cervical and visualized upper thoracic cord on the T2, IR and axial gradient echo images compatible with the history of multiple sclerosis. Cord T2 Plaque Trumann: Mild New T2 Lesions: None. Please note only the sagittal T2 and STIR images were used for comparison, as the axial images at different technique and the prior MRI exam do not show lesions in the axial images. Interval Cord Improvement: None New Cord Enhancing Lesions: None Cord Volume Loss: Normal morphology for age Bone marrow signal/fracture: No evidence of pathologic marrow infiltration. No evidence of prior fracture. Cervical soft tissues: The paraspinal soft tissues are within normal limits. Cervical Canal and foramina: No significant canal or foraminal stenosis in the visualized spine. MR THORACIC SPINE: Counting reference: Lumbosacral junction. For the purposes of this report, L4-5 is considered the level of the iliac crest. Alignment: Alignment is anatomic. Cord Findings: The cord is limited by motion artifact. Patchy foci of hyperintensity are noted in the cervical and visualized upper thoracic cord on the T2, IR and axial gradient echo images compatible with the history of multiple sclerosis. Cord T2 Plaque Trumann: Mild New T2 Lesions: Greater than three at the level of T6, T7, T8 and T9 cord (series 30, images 21-34) Interval Cord Improvement: None New Cord Enhancing Lesions: None Cord Volume Loss: Normal morphology for age Bone marrow signal/fracture: No evidence of pathologic marrow infiltration. No evidence of prior fracture. Thoracic soft tissues: The paraspinal soft tissues are unremarkable. Canal and foramina: The thoracic canal and foramina are patent. DIVISION OF RADIOLOGY Provider, [facility] - 03/14/2024 * * *Final Report* * * DATE OF EXAM: Mar 14 2024 10:17AM [facility] 0326 - MRI THORACIC SPINE WO/W IVCON / PROCEDURE REASON: Multiple sclerosis (HCC) * * * * Physician Interpretation * * * * EXAMINATION: MRI THORACIC SPINE WO/W IVCON, MRI CERVICAL SPINE WO/W IVCON, MRI BRAIN WO/W IVCON HISTORY: Multiple sclerosis. Routine follow-up TECHNIQUE: Brain MRI with demyelinating disease protocol with and without gadolinium. Routine cervical and thoracic spine protocol with and without gadolinium. MQ: MRBMSPlusWOW_2 Contrast: 20 mL Dotarem IV COMPARISON: Outside hospital. Cervical spine MRI 08/07/2023. Brain MRI 08/07/2023. Cervical spine MRI 12/10/2022. Thoracic spine MRI 06/14/2017 RESULT: MR BRAIN: Parenchymal Findings: There are multiple foci of hyperintensity on FLAIR and T2 within the white matter, compatible with the clinical diagnosis of multiple sclerosis. New T2 Lesions: None Site(s) of New/Larger T2 Lesion(s): Not applicable Interval Improvement: None. New Enhancing Lesions: None T2 Trumann of Disease: Mild. Parenchymal Volume Loss: None. Other Significant Findings: None. MR CERVICAL: Counting reference: Craniocervical junction. Alignment: Alignment is anatomic. Craniocervical Junction: Craniocervical junction is normal. Cord Findings: Patchy foci of hyperintensity are noted in the cervical and visualized upper thoracic cord on the T2, IR and axial gradient echo images compatible with the history of multiple sclerosis. Cord T2 Plaque Trumann: Mild New T2 Lesions: None. Please note only the sagittal T2 and STIR images were used for comparison, as the axial images at different technique and the prior MRI exam do not show lesions in the axial images. Interval Cord Improvement: None New Cord Enhancing Lesions: None Cord Volume Loss: Normal morphology for age Bone marrow signal/fracture: No evidence of pathologic marrow infiltration. No evidence of prior fracture. Cervical soft tissues: The paraspinal soft tissues are within normal limits. Cervical Canal and foramina: No significant canal or foraminal stenosis in the visualized spine. MR THORACIC SPINE: Counting reference: Lumbosacral junction. For the purposes of this report, L4-5 is considered the level of the iliac crest. Alignment: Alignment is anatomic. Cord Findings: The cord is limited by motion artifact. Patchy foci of hyperintensity are noted in the cervical and visualized upper thoracic cord on the T2, IR and axial gradient echo images compatible with the history of multiple sclerosis. Cord T2 Plaque Trumann: Mild New T2 Lesions: Greater than three at the level of T6, T7, T8 and T9 cord (series 30, images 21-34) Interval Cord Improvement: None New Cord Enhancing Lesions: None Cord Volume Loss: Normal morphology for age Bone marrow signal/fracture: No evidence of pathologic marrow infiltration. No evidence of prior fracture. Thoracic soft tissues: The paraspinal soft tissues are unremarkable. Canal and foramina: The thoracic canal and foramina are patent. IMPRESSION IMPRESSION: Multiple intracranial white matter lesions compatible with multiple sclerosis. No new T2 lesions and no new enhancing lesions. No significant parenchymal volume loss. Other Significant Intracranial Findings: None. Scattered intramedullary lesions compatible with the clinical history of multiple sclerosis. Greater than three new T2 intramedullary lesions and no new enhancing intramedullary lesions. No significant volume loss of the upper spinal cord for age. Other Significant Spine Findings: No significant cervical canal or foraminal stenosis. Wind Turbine Engineer: [facility] Transcribe Date/Time: Mar 14 2024 10:29A Dictated by : SHIN ALVAREZ MD This examination was interpreted and the report reviewed and electronically signed by: SHIN ALVAREZ MD on Mar 14 2024 11:06AM [facility] MRI BRAIN WO/W IVCONon 03-14 MRI BRAIN WO/W IVCON * * *Final Report* * * DATE OF EXAM: Mar 14 2024 10:17AM [facility] 0295 - MRI BRAIN WO/W IVCON / PROCEDURE REASON: Multiple sclerosis (HCC) * * * * Physician Interpretation * * * * EXAMINATION: MRI THORACIC SPINE WO/W IVCON, MRI CERVICAL SPINE WO/W IVCON, MRI BRAIN WO/W IVCON HISTORY: Multiple sclerosis. Routine follow-up TECHNIQUE: Brain MRI with demyelinating disease protocol with and without gadolinium. Routine cervical and thoracic spine protocol with and without gadolinium. MQ: MRBMSPlusWOW_2 Contrast: 20 mL Dotarem IV COMPARISON: Outside hospital. Cervical spine MRI 08/07/2023. Brain MRI 08/07/2023. Cervical spine MRI 12/10/2022. Thoracic spine MRI 06/14/2017 RESULT: MR BRAIN: Parenchymal Findings: There are multiple foci of hyperintensity on FLAIR and T2 within the white matter, compatible with the clinical diagnosis of multiple sclerosis. New T2 Lesions: None Site(s) of New/Larger T2 Lesion(s): Not applicable Interval Improvement: None. New Enhancing Lesions: None T2 Trumann of Disease: Mild. Parenchymal Volume Loss: None. Other Significant Findings: None. MR CERVICAL: Counting reference: Craniocervical junction. Alignment: Alignment is anatomic. Craniocervical Junction: Craniocervical junction is normal. Cord Findings: Patchy foci of hyperintensity are noted in the cervical and visualized upper thoracic cord on the T2, IR and axial gradient echo images compatible with the history of multiple sclerosis. Cord T2 Plaque Trumann: Mild New T2 Lesions: None. Please note only the sagittal T2 and STIR images were used for comparison, as the axial images at different technique and the prior MRI exam do not show lesions in the axial images. Interval Cord Improvement: None New Cord Enhancing Lesions: None Cord Volume Loss: Normal morphology for age Bone marrow signal/fracture: No evidence of pathologic marrow infiltration. No evidence of prior fracture. Cervical soft tissues: The paraspinal soft tissues are within normal limits. Cervical Canal and foramina: No significant canal or foraminal stenosis in the visualized spine. MR THORACIC SPINE: Counting reference: Lumbosacral junction. For the purposes of this report, L4-5 is considered the level of the iliac crest. Alignment: Alignment is anatomic. Cord Findings: The cord is limited by motion artifact. Patchy foci of hyperintensity are noted in the cervical and visualized upper thoracic cord on the T2, IR and axial gradient echo images compatible with the history of multiple sclerosis. Cord T2 Plaque Trumann: Mild New T2 Lesions: Greater than three at the level of T6, T7, T8 and T9 cord (series 30, images 21-34) Interval Cord Improvement: None New Cord Enhancing Lesions: None Cord Volume Loss: Normal morphology for age Bone marrow signal/fracture: No evidence of pathologic marrow infiltration. No evidence of prior fracture. Thoracic soft tissues: The paraspinal soft tissues are unremarkable. Canal and foramina: The thoracic canal and foramina are patent. IMPRESSION: Multiple intracranial white matter lesions compatible with multiple sclerosis. No new T2 lesions and no new enhancing lesions. No significant parenchymal volume loss. Other Significant Intracranial Findings: None. Scattered intramedullary lesions compatible with the clinical history of multiple sclerosis. Greater than three new T2 intramedullary lesions and no new enhancing intramedullary lesions. No significant volume loss of the upper spinal cord for age. Other Significant Spine Findings: No significant cervical canal or foraminal stenosis. Wind Turbine Engineer: VIKI Transcribe Date/Time: Mar 14 2024 10:29A Dictated by : SHIN ALVAREZ MD This examination was interpreted and the report reviewed and electronically signed by: SHIN ALVAREZ MD on Mar 14 2024 11:06AM EST [id number] Normal [facility] MRI CERVICAL SPINE WO/W IVCO Non 03-14-2024 MRI CERVICAL SPINE WO/W IVCON * * *Final Report* * * DATE OF EXAM: Mar 14 2024 10:17AM [facility] 0298 - MRI CERVICAL SPINE WO/W IVCON / PROCEDURE REASON: Multiple sclerosis (HCC) * * * * Physician Interpretation * * * * EXAMINATION: MRI THORACIC SPINE WO/W IVCON, MRI CERVICAL SPINE WO/W IVCON, MRI BRAIN WO/W IVCON HISTORY: Multiple sclerosis. Routine follow-up TECHNIQUE: Brain MRI with demyelinating disease protocol with and without gadolinium. Routine cervical and thoracic spine protocol with and without gadolinium. MQ: MRBMSPlusWOW_2 Contrast: 20 mL Dotarem IV COMPARISON: Outside hospital. Cervical spine MRI 08/07/2023. Brain MRI 08/07/2023. Cervical spine MRI 12/10/2022. Thoracic spine MRI 06/14/2017 RESULT: MR BRAIN: Parenchymal Findings: There are multiple foci of hyperintensity on FLAIR and T2 within the white matter, compatible with the clinical diagnosis of multiple sclerosis. New T2 Lesions: None Site(s) of New/Larger T2 Lesion(s): Not applicable Interval Improvement: None. New Enhancing Lesions: None T2 Trumann of Disease: Mild. Parenchymal Volume Loss: None. Other Significant Findings: None. MR CERVICAL: Counting reference: Craniocervical junction. Alignment: Alignment is anatomic. Craniocervical Junction: Craniocervical junction is normal. Cord Findings: Patchy foci of hyperintensity are noted in the cervical and visualized upper thoracic cord on the T2, IR and axial gradient echo images compatible with the history of multiple sclerosis. Cord T2 Plaque Trumann: Mild New T2 Lesions: None. Please note only the sagittal T2 and STIR images were used for comparison, as the axial images at different technique and the prior MRI exam do not show lesions in the axial images. Interval Cord Improvement: None New Cord Enhancing Lesions: None Cord Volume Loss: Normal morphology for age Bone marrow signal/fracture: No evidence of pathologic marrow infiltration. No evidence of prior fracture. Cervical soft tissues: The paraspinal soft tissues are within normal limits. Cervical Canal and foramina: No significant canal or foraminal stenosis in the visualized spine. MR THORACIC SPINE: Counting reference: Lumbosacral junction. For the purposes of this report, L4-5 is considered the level of the iliac crest. Alignment: Alignment is anatomic. Cord Findings: The cord is limited by motion artifact. Patchy foci of hyperintensity are noted in the cervical and visualized upper thoracic cord on the T2, IR and axial gradient echo images compatible with the history of multiple sclerosis. Cord T2 Plaque Trumann: Mild New T2 Lesions: Greater than three at the level of T6, T7, T8 and T9 cord (series 30, images 21-34) Interval Cord Improvement: None New Cord Enhancing Lesions: None Cord Volume Loss: Normal morphology for age Bone marrow signal/fracture: No evidence of pathologic marrow infiltration. No evidence of prior fracture. Thoracic soft tissues: The paraspinal soft tissues are unremarkable. Canal and foramina: The thoracic canal and foramina are patent. IMPRESSION: Multiple intracranial white matter lesions compatible with multiple sclerosis. No new T2 lesions and no new enhancing lesions. No significant parenchymal volume loss. Other Significant Intracranial Findings: None. Scattered intramedullary lesions compatible with the clinical history of multiple sclerosis. Greater than three new T2 intramedullary lesions and no new enhancing intramedullary lesions. No significant volume loss of the upper spinal cord for age. Other Significant Spine Findings: No significant cervical canal or foraminal stenosis. Wind Turbine Engineer: [employer] Transcribe Date/Time: Mar 14 2024 10:29A Dictated by : SHIN ALVAREZ MD This examination was interpreted and the report reviewed and electronically signed by: SHIN ALVAREZ MD on Mar 14 2024 11:06AM EST [id number] Normal [facility] MRI THORACIC SPINE WO/W IVCO Non 03-14-2024 MRI THORACIC SPINE WO/W IVCON * * *Final Report* * * DATE OF EXAM: Mar 14 2024 10:17AM [facility] 0326 - MRI THORACIC SPINE WO/W IVCON / PROCEDURE REASON: Multiple sclerosis (HCC) * * * * Physician Interpretation * * * * EXAMINATION: MRI THORACIC SPINE WO/W IVCON, MRI CERVICAL SPINE WO/W IVCON, MRI BRAIN WO/W IVCON HISTORY: Multiple sclerosis. Routine follow-up TECHNIQUE: Brain MRI with demyelinating disease protocol with and without gadolinium. Routine cervical and thoracic spine protocol with and without gadolinium. MQ: MRBMSPlusWOW_2 Contrast: 20 mL Dotarem IV COMPARISON: Outside hospital. Cervical spine MRI 08/07/2023. Brain MRI 08/07/2023. Cervical spine MRI 12/10/2022. Thoracic spine MRI 06/14/2017 RESULT: MR BRAIN: Parenchymal Findings: There are multiple foci of hyperintensity on FLAIR and T2 within the white matter, compatible with the clinical diagnosis of multiple sclerosis. New T2 Lesions: None Site(s) of New/Larger T2 Lesion(s): Not applicable Interval Improvement: None. New Enhancing Lesions: None T2 Trumann of Disease: Mild. Parenchymal Volume Loss: None. Other Significant Findings: None. MR CERVICAL: Counting reference: Craniocervical junction. Alignment: Alignment is anatomic. Craniocervical Junction: Craniocervical junction is normal. Cord Findings: Patchy foci of hyperintensity are noted in the cervical and visualized upper thoracic cord on the T2, IR and axial gradient echo images compatible with the history of multiple sclerosis. Cord T2 Plaque Trumann: Mild New T2 Lesions: None. Please note only the sagittal T2 and STIR images were used for comparison, as the axial images at different technique and the prior MRI exam do not show lesions in the axial images. Interval Cord Improvement: None New Cord Enhancing Lesions: None Cord Volume Loss: Normal morphology for age Bone marrow signal/fracture: No evidence of pathologic marrow infiltration. No evidence of prior fracture. Cervical soft tissues: The paraspinal soft tissues are within normal limits. Cervical Canal and foramina: No significant canal or foraminal stenosis in the visualized spine. MR THORACIC SPINE: Counting reference: Lumbosacral junction. For the purposes of this report, L4-5 is considered the level of the iliac crest. Alignment: Alignment is anatomic. Cord Findings: The cord is limited by motion artifact. Patchy foci of hyperintensity are noted in the cervical and visualized upper thoracic cord on the T2, IR and axial gradient echo images compatible with the history of multiple sclerosis. Cord T2 Plaque Trumann: Mild New T2 Lesions: Greater than three at the level of T6, T7, T8 and T9 cord (series 30, images 21-34) Interval Cord Improvement: None New Cord Enhancing Lesions: None Cord Volume Loss: Normal morphology for age Bone marrow signal/fracture: No evidence of pathologic marrow infiltration. No evidence of prior fracture. Thoracic soft tissues: The paraspinal soft tissues are unremarkable. Canal and foramina: The thoracic canal and foramina are patent. IMPRESSION: Multiple intracranial white matter lesions compatible with multiple sclerosis. No new T2 lesions and no new enhancing lesions. No significant parenchymal volume loss. Other Significant Intracranial Findings: None. Scattered intramedullary lesions compatible with the clinical history of multiple sclerosis. Greater than three new T2 intramedullary lesions and no new enhancing intramedullary lesions. No significant volume loss of the upper spinal cord for age. Other Significant Spine Findings: No significant cervical canal or foraminal stenosis. Wind Turbine Engineer: [facility] Transcribe Date/Time: Mar 14 2024 10:29A Dictated by : SHIN ALVAREZ MD This examination was interpreted and the report reviewed and electronically signed by: SHIN ALVAREZ MD on Mar 14 2024 11:06AM EST [id number] Normal [facility] No Panel Informationon 03-14 IMPRESSION: Multiple intracranial white matter lesions compatible with multiple sclerosis. No new T2 lesions and no new enhancing lesions. No significant parenchymal volume loss. Other Significant Intracranial Findings: None. Scattered intramedullary lesions compatible with the clinical history of multiple sclerosis. Greater than three new T2 intramedullary lesions and no new enhancing intramedullary lesions. No significant volume loss of the upper spinal cord for age. Other Significant Spine Findings: No significant cervical canal or foraminal stenosis. Wind Turbine Engineer: VIKI Transcribe Date/Time: Mar 14 2024 10:29A Dictated by : SHIN ALVAREZ MD This examination was interpreted and the report reviewed and electronically signed by: SHIN ALVAREZ MD on Mar 14 2024 11:06AM [facility] DIVISION OF RADIOLOGY Radiology Study observation (narrative) [facility] No Panel InformationOrdered By: [facility] Provider on 03-14-2024 [facility] 36on 03-04-2024 36 Questionnaire form h as not been completed, will fax when done. Normal [facility] 36on 03-03-2024 36 Name of caller: Devin Contact phone number: [phone] Relationship to Patient: Josseline Provider: Dr. Donovan Practice: [facility] Chief Complaint/Reason for Call: Devin states she is checking on the pre authorization for Botox and would like a return call with an update. Please review. Best time of day caller can be reached: any Patient advised that office/PCP has 24-48 business hours to return their call: Yes Normal [facility] 36on 02-23-2024 36 Noted. Normal [facility] 36 Name of caller: Isela Contact phone number: [phone] Relationship to Patient: Josseline/JENNIFER Provider: Dr Donovan Practice: Neurology Chief Complaint/Reason for Call: Isela will be faxing a form that will need to be completed and faxed back with questions for review for a prior authorization for the Botox. Please be advised. Best time of day caller can be reached: Any Patient advised that office/PCP has 24-48 business hours to return their call: Yes Normal [facility] CNOVon 02-11-2024 CNOV Office Visit (NEMN ) SARIKA AVILA ([id number]) 1970 F Date Time Provider Department 02/11/24 2:45 PM LUCIA CORTES During your visit today, we recorded the following information about you: Pulse Blood pressure Weight Height 76/minute 121/80 103.9 kg 1.6 m Lucia Cortes MD 02/29/2024 12:55 PM Signed [facility] FOLLOWUP/ESTABLISHED PATIENT VISIT DISEASE SUMMARY Date of onset: 1996 Date of diagnosis of MS: 2004 Disease course at onset: Relapsing-Remitting Current disease course: Relapsing-Remitting Previous disease therapies: - Copaxone - Ocrevus - Tysabri Current disease therapy: - Mavenclad (Cladribine, nucleotide analogue), 05/2021 and 08/2022 Most recent MRI brain: 10/20/2023 Most recent MRI cervical spine: 08/07/2023 CSF: 2004 (results not available for review) JCV serology result and date: Positive (per patient report) CHIEF COMPLAINT: Multiple Sclerosis INTERVAL HISTORY: MsSusy Avila is a 53yo woman with history of MS, NATHALIE, mood disorder who presents to [facility] for follow up. Pain is a significant concern. It is worse in her back. Taken off Celebrex due to worsening renal function. Tramadol did not provide satisfactory relief, and she wants to avoid opioids. States that she is having a relapse for the past two week, quality/pattern similar to prior. Mainly weakness in proximal leg muscles (R>>L) in the setting of increased pain. Difficulty rising from bed or toilet. Worsening with recent warm weather. No other clear triggers. Will have botox injection in bilateral LE at the end of this month. Is worried that that this will exacerbate above acute on chronic weakness Continues to have about one fall per week. Typically while hurrying and right leg will catch on floor. Has a leg brace and cane that uses intermittently. Restarting PT this month, felt like they were helpful in the past Increased urinary urgency, overflow inconstancies. Does not feel like a UTI. Continues to take Gemtesa, follows with urology and will have bladder injection end of March Mood is poor related to above concerns. Denies SI. EEG (11/2023) had no definite epileptiform discharge or EEG seizures. There were some sharp transients (L>R occipital) of unclear significance. MRI-brain (10/2022) grossly stable compared to 2020. Most recent Cr 1.7 (12/2023) Current Symptomatic Medications Gabapentin for pain Gemtesa for urinary incontinence Nuedexta, Wellbutrin, and Pristiq for depression INITIAL HPI SUMMARY: -Symptoms began in 1996, noted increased difficulty running -Diagnosed with MS in 2004 s/p fall. Diagnosed with transverse myelitis. MRI and LP supportive of diagnosis. Underwent pulse steroids with some improvement, started on DMT (Capaxone) -Switched to Ocrevus in 2016 after developing subclinical lesion -Later switched to Tsyabri due to recurrent PNA. Discontinued 02/2021 due to postive JCV serology -Subsequently started on Mavenclad with good initial reponse after initial survailence imaging -Expeirenced episode of loss of awareness in 08/2023. Recalls presyncope, tunnel vision, and whole-body trembling before passing out. 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 Boyfriend did not note any unusual behaviors over this peroid. --No changes in MDD medications (desvenlafaxine, bupropion, and Nuedexta). Used marijuana gummy that day but previously tolerated -Cardiac workup negative except noctural bradycardia. -Prior significant psych symptoms with steroids Usual treating team: Sebastian/Mihir The patient is unaccompanied. The patient was last seen 10/2023, currently taking Not on DMT. Since the patient's last visit the patient reports overall feeling worse. Issues with current therapy: Not currently on disease modifying therapy. Neuro-QoL Functions (higher=better functioning) Flowsheet Row Appointment from 02/11/2024 in [facility] Office Visit from 11/21/2023 in [facility] Upper Extremity Domain T Score 37 43 Lower Extremity Domain T Score 31 36 Cognitive Function Domain T Score 38 38 Positive Affect Well Being T Score -- -- Ability To Participate In Social Roles T Score 42 38 Satisfaction With Social Roles T Score 35 41 Neuro-QoL Symptoms (higher=worse symptoms) Flowsheet Row Appointment from 02/11/2024 in [facility] Office Visit from 11/21/2023 in [facility] Sleep Domain T Score 68 57 Fatigue Domain T Score 60 56 Anxiety Domain T Score 63 59 Depression Domain T Score 57 61 Stigma Domain T Score 59 61 Emotional Behavior Dyscontrol T Score -- -- has a past medical history of Aspiration pneumonia ([facility]), Asthma, Bradycardia, Chronic gastritis, Colon polyps, Depression, Diabetes (HCC), Elevated blood pressure, Endometriosis, Foot drop, right foot, GERD (gastroesophageal reflux disease), H. pylori infection (20 (more content not included)... Normal [facility] 01-08-2024 CNPN Telephone (GYURWP) SARIKA AVILA ([id number]) 1970 F Date Time Provider Department 01/08/24 SHAHEEN GEGE Manish REYES During your visit today, we recorded the following information about you: Amna Burrows RN 01/08/2024 5:00 PM Signed Botox referral received for 100 units -- 1st injection. Added CPT codes to auth. Will monitor status. LV: 01/07 with Roberto Carlos Assessment: (N32.81) OAB (overactive bladder) (primary encounter diagnosis) (N31.9) Neurogenic dysfunction of the urinary bladder (G35) MS (multiple sclerosis) ([facility]) Plan: - Discussed 3rd line therapies at length. Patient would like to proceed with intradetrusor botox. Reviewed risks/benefits, including 5-6% of urinary retention. Cystoscopy and Botox orders placed. Will schedule after Botox is approved. Amna Burrows RN January 08, 2024 5:00 PM Ashley Ndiaye RN 01/16/2024 9:45 AM Signed Botox 100 units approved thru 08/24/24 x 2 visits. Sticky note updated. Sent to to schedule. Ashley Ndiaye RN January 16, 2024 9:43 AM === PHARMACY TEAM ==== NO AUTHORIZATION REQUIRED Verified by PA list Available Policy to Reference: Yes Insurance Name: MMO Date of Service: TBA Drug Name(s) AND HCPCS Code(s): Botox, J0585 Dx Code AND Description: N31.9 (ICD-10-CM) - Neurogenic dysfunction of the urinary bladder , N32.81 (ICD-10-CM) - OAB (overactive bladder) PA List Effective Date AND Title of List: MMO Gold Card List Updated 10/16/2023 Policy Title / Policy Number / Effective/Revision Date: Botox? (onabotulinumtoxinA) /[id number]/04-23-2021 Yenny Eason 01/20/2024 9:37 AM Signed Left message for pt to call the office to schedule. Yenny Eason 01/20/2024 11:13 AM Signed Pt scheduled Amna Burrows RN 02/18/2024 12:58 PM Signed Pt scheduled for 04/01 at with Shaheen. Amna Burrows RN February 18, 2024 12:58 PM Amna Burrows RN 03/31/2024 2:25 PM Signed Received a call from Dr. Jamison advising this pt has MS and the starting dose for MS is 200 units. Pt is currently approved for 100 units. Reaching out to pharm auth team to see if we can get this approved before appointment tomorrow. Amna Burrows RN March 31, 2024 2:25 PM Amna Burrows RN 03/31/2024 2:40 PM Signed Pt approved for 200 units Botox through 08/24/24 - NPCR. Updated sticky note. Amna Burrows RN March 31, 2024 2:40 PM Ashley Ndiaye RN 04/01/2024 8:53 AM Signed Botox 200 units 10/06 at with Shaheen - 2nd injection Previous injections: 04/01/24 CPT added 04/01. Will monitor status. Ashley Ndiaye RN April 01, 2024 8:53 AM SABINE 04/01/24: Cystoscopy with 200 units of botox - Dr. Jamison Allergies As of Date: 01/08/2024 Noted Allergy Reaction COMPAZINE (PROCHLORPERAZINE EDISY*08/30/2014 1 - Mental Status Change Comments: Other reaction(s): Dizzy/Vertigo, Dyspepsia LATEX 12/10/2015 9 - Itching DOXYCYCLINE 06/06/2018 11 - Vomiting LEVOFLOXACIN 09/04/2011 14 - Other: See Comments 8 - GI Upset Comments: Other reaction(s): Dizzy/Vertigo, GI Upset, Other: See Comments Date Reviewed: 11/21/2023 Reviewed by: Neha Diaz O[facility] - Fully Assessed Reason for Visit: Care Coordination [3491] Cmt: Botox Prescriptions as of 04/01/2024 - vibegron (GEMTESA) 75 mg tablet take 1 tablet by mouth every day - baclofen 10 mg tablet Take 1 tablet by mouth four times daily. - modafinil (PROVIGIL) 200 mg tablet Take one pill in the morning and 0.5 (half) a pill at noon. - gabapentin (NEURONTIN) 100 mg capsule Take 1 capsule by mouth three times a day for 180 days. - cladribine,multiple sclerosis, (MAVENCLAD, 10 TABLET PACK,) 10 mg tablet - acyclovir (ZOVIRAX) 400 mg tablet Take 1 tablet by mouth every 12 hours. - desvenlafaxine ER (PRISTIQ) 50 mg 24 hr tablet Take 1 tablet by mouth every afternoon. - NUEDEXTA 20-10 mg capsule Take 1 capsule by mouth every 12 hours. - fluticasone (FLONASE) 50 mcg/actuation nasal spray Fluticasone Propionate Active 1 SPRAY INTRANASAL DAILY November 18, 2018 1:22pm - triamterene-hydroCHLOROthia zide (MAXZIDE-25) 37.5-25 mg per tablet Take 1 tablet by mouth every morning. - buPROPion XL (WELLBUTRIN XL) 150 mg 24 hr tablet - liraglutide (VICTOZA) 0.6 mg/ 0.1 ml subcutaneous pen injector inject 1.8 milligram subcutaneously daily - albuterol HFA (PROVENTIL HFA, VENTOLIN HFA) 90 mcg/actuation inhaler albuterol 90 mcg/actuation aerosol inhaler albuterol 90 mcg/actuation aerosol inhaler 1 PUFF INHALATION NEEDED PRN For Sob AND/Or Wheezing September 19, 2017 Active 09-19-2017 [facility] ([id number]) - hydrocortisone 2.5 % ointment - miconazole (MONISTAT-DERM,ROSEMARY) 2 % cream As directed. - nystatin (MYCOSTATIN) powder Apply to affected area twice daily. - folic acid 800 mcg tablet every day - VITAMIN D-3 2,000 unit cap 5,000 Units. - esterified estrogens-methylTESTOSTERon e (ESTRATEST HS) 0.625-1.25 mg per tablet - NOVOFINE (more content not included)... [facility] CNPN Telephone (GYSAVANNAHWP) SARIKA AVILA ([id number]) 1970 F Date Time Provider Department 12/31/23 [facility], GEGE Hammond AMY During your visit today, we recorded the following information about you: Tamika Sanderson 12/31/2023 11:38 AM Signed Patient called in stating she was originally on Myrbetriq (too expensive), and was then switched to Gemtesa. She recently had labs done and her GFR went from a 40 down to 34, and she was wondering if that is because of the medication. Yenny Adames, RN 12/31/2023 12:23 PM Signed S: Akash states she is taking Gemtesa and called to report lab results she had done at [facility]. States the only change she has had is taking Gemtesa. GFR went from 40 to 34. Urine protein 12.8 Urine creatinine 199 Blood creatinine 1.69 Update on urinary symptoms. Gemtesa does not work as well as Myrbetriq did. (Myrbetriq was too expensive.) She has had some episodes of incontinence. States both with urge and HUBER. States episodes seem to be increasing. States if appropriate, she would be interested in Botox if covered by insurance. B: SABINE 08/15/23 with Luz Parsons CNP: Reason for Appointment1. Uro/cysto and f/u2. MIPS Codes (normal)History of Present IllnessNew Urogyn Consult: 53 year old female presents with c/o Incontinence Has leakage with cough, laugh and sneezse, has leakage with urgency, wears pads, has tried physical therapy, has not tried dietary modifications. c/o Leaks with laugh/cough/sneeze She leaks with sneeze, She leaks with laugh., She leaks with cough. , She leaks with sex., She wears pads for this problem.. c/o Urge Leakage Patient reports , urgency of urination, urge incontinence, She wears pads for this problem., She has never tried OAB medications.. c/o Bowel symptoms has constipation, uses miralax, has trouble evacuating stool, has to splint to have a bowel movement. c/o Hysterectomy TVH. Denies : Burning with urination. Denies : Prolapse symptoms. Denies : Ever taken OAB medications?. Interim history: Patient presents today for urodynamics and cystoscopy and to determine a treatment plan. She has not tried taking Myrbetriq yet due to fear of allergic reaction and wanting to clarify with neurologist.Vital SignsBP: 112/72 mm Hg, Wt: 218 lbs, BMI: 38.61 Index, Ht: 63 in.ExaminationGeneral Examination: GENERAL APPEARANCE: alert, well hydrated, in no distress . EYES: BOTH EYES, sclera non-icteric, upper eyelids normal, lower eyelids normal. SKIN: no rashes, warm and dry, good turgor, no suspicious lesions. LUNGS: good air movement, no wheezes, rales, rhonchi. EXTREMITIES: no clubbing, cyanosis, or edema of digits and nails. PSYCH: alert, oriented, cognitive function intact, cooperative with exam, good eye contact, judgement and insight good. Assessments1. Urge incontinence - N39.41 (Primary)2. Female stress incontinence - N39.3We discussed the patient's options for her OAB which include expectant management, behavioral modification and bladder training, pelvic floor rehabilitation, anticholinergic medications, Myrbetriq (a B3 adrenergic agonist), or a combination of these treatment modalities. We also discussed the option of sacroneuromodulation (Interstim), UrgentPC or Intravesical Botox. We discussed the importance of decreasing/eliminating her caffeine intake to help improve her urgency and frequency. The patient was counseled on the importance of kegel exercises for urge control. She was given a handout on OAB, bladder training and pelvic floor exercises. No stress incontinence was seen on urodynamics today.Treatment1. Urge incontinence Continue Myrbetriq Tablet Extended Release 24 Hour, 50 MG, 1 tablet, Orally, Once a dayNotes: Educational handouts were given on OAB, pelvic floor exercises and bladder training. I also recommended she listen to the Girl Problems episode on OAB. Trial with Myrbetriq. Will reassess in 4 weeks. Discussed botox as option. She states she gets Botox 200 units injection every 90 days in lower extremities for muscle spascity. ProceduresCystoscopy: Consent: General procedure, indications, risks, benefits, alternative treatments, and expected outcomes have been discussed with this patient. She has had an opportunity to ask questions, and all questions have been answered by me. She verbalizes understanding, and to the best of my knowledge I feel the patient has been adequately informed and consented. The consent form has been signed.. Urethra: Normal. Urothelium: Normal. Ureteral jets, Left: Normal. Ureteral jets, Right: Normal. Glomerulations: None. Trabeculations: None. Ulcers: None. Calculi: None. Tumor: None. Biopsy: No. Post Procedure: All the instruments were removed from the patient. The patient tolerated the procedure well and was discharged from the office in good condition., . Urodynamics *: Procedure Informed (more content not included)... Normal [facility] CNOVon 11-21-2023 CNOV Office Visit (DOMINGUEZ ) SARIKA AVILA ([id number]) 1970 F Date Time Provider Department 11/21/23 9:30 AM LUCIA CORTES During your visit today, we recorded the following information about you: Pulse Blood pressure Weight Height 54/minute 130/64 103.9 kg 1.6 m Doe Patel 11/25/2023 9:57 AM [facility] NEW PATIENT EVALUATION/CONSULTATION Referral source: No referring provider defined for this encounter. Also followed by: Patient Care Team: Annita Escobedo DO as PCP - General (Family Medicine) PRINCIPAL NEUROLOGIC DIAGNOSIS: Multiple Sclerosis DISEASE SUMMARY Date of onset: 1996 Date of diagnosis of MS: 2004 Disease course at onset: Relapsing-Remitting Current disease course: Relapsing-Remitting Previous disease therapies: - Copaxone - Ocrevus - Tysabri Current disease therapy: - Mavenclad Most recent MRI brain: 10/20/2023 Most recent MRI cervical spine: 08/07/2023 CSF: 2004 (results not available for review) JCV serology result and date: Positive (per patient report) HISTORY OF ILLNESS: An opinion on this 53-year-old right-handed woman was requested by the referring physician to establish care for MS. The patient was unaccompanied. Previous records (physician notes, laboratory reports, and radiology reports) and imaging studies were reviewed and summarized. My recommendations will be communicated back to the patient's physician(s) by mail. Follow-up is expected to be with me at the [facility]. Ms. Avila first presented with relapsing symptoms beginning in 1996. While at the [employer], she noticed difficulty running during training. She was diagnosed with MS in 2004 after a fall, based on MRI imaging and the results of a spinal tap. She was treated with a course of high-dose steroids for transverse myelitis with some improvement and started on Copaxone for treatment. In 2016, after developing a new lesion on the brainstem, she switched to Ocrevus. After a couple of years, she switched to Tsyabri, due to the development of recurrent pneumonia (3 times) and a collapsed long. In February 2021, she had a positive JCV serology, and Tysabri was discontinued. She initially underwent pretesting for Lemtrada, but ultimately started Mavenclad instead. She finished her second-week second-year course of treatment in August 2022. Repeat MRI imaging has been stable since staring Mavenclad. She primarily presents for further evaluation of an episode of missing time in August 2023. 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 She eventually passed out on her kitchen floor. She has no memory of the following 3 days, despite working full-time. She also lives with her boyfriend, who did not notice anything out of the ordinary. She has a history of MDD, and was taking desvenlafaxine, bupropion, and Nuedexta at the time, but there were no changes to her psychotropic medication regimen around the time of the event. Nuedexta was the last medication added, approximately 6 months prior. She also has a medical marijuana license and took a gummy that day, but has used medical marijuana in the past without issues. She continues to struggle with anhedonia and angry outbursts and is working with psychiatry to further adjust her treatment regimen. She was recently taken off Ampyra in the setting of DIEGO (potentially due to NSAID use for chronic pain) and due to concern for a possible seizure. Since stopping Ampyra, her symptoms of difficulty walking, urinary frequency, and sexual dysfunction have gotten worse. She's also has had an extensive cardiac work up, including long-term EKG monitoring, with no definite etiology for her symptoms, but she is noted to have bradycardia overnight into the high 30s. Her history is also significant for NATHALIE, currently not on CPAP. Her CPAP machine was taken away in the past due to issues with compliance, but that was in part related to chronic pain. PMHx Obstructive sleep apnea Bradycardia DIEGO Macrocytosis Current Symptomatic Medications Celebrex for pain Gabapentin for pain Gemtesa for urinary incontinence Nuedexta, Wellbutrin, and Pristiq for depression Neuro-QoL Functions (higher=better functioning) Flowsheet Row Appointment from 11/21/2023 in [facility] Upper Extremity Domain T Score 43 Lower Extremity Domain T Score 36 Cognitive Function Domain T Score 38 Positive Affect Well Being T Score -- Ability To Participate In Social Roles T Score 38 Satisfaction With Social Roles T Score 41 Neuro-QoL Symptoms (higher=worse symptoms) Flowsheet Row Appointment from 11/21/2023 in [facility] Sleep Domain T Score 57 Fatigue Domain T Score 56 Anxiety Domain T Score 59 Depression Domain T Score 61 (more content not included)... Normal [facility] Hilda 10-30-2023 [facility] Telephone (GYURWP) SARIKA AVILA ([id number]) 1970 F Date Time Provider Department 10/30/23 SHAHEEN, GEGE REYES During your visit today, we recorded the following information about you: Yenny Eason 10/30/2023 11:13 AM Signed Pt called stating that she was given samples of Myrbetriq and it is working well for her. However, a rx was sent in to her pharmacy but her insurance is denying paying for it. She wants to know what she should do. Pt can be reached at [phone]. Radha Cadet, YEISON 10/30/2023 4:01 PM Signed Called pt; verified name/. Advised pt that she should call her insurance company to ask what alternatives they would cover, then let us know. Pt has tried oxybutynin in past; says it gave her bad headaches. Pt says she's almost out of her Myrbetriq samples. RN advised pt that I'd see if we can offer her more. ====== SABINE - Luz Parsons CNP 08/15/23 Reason for Appointment 1. Uro/cysto and f/u 2. MIPS Codes (normal) History of Present Illness New Urogyn Consult: 53 year old female presents with c/o Incontinence Has leakage with cough, laugh and sneezse, has leakage with urgency, wears pads, has tried physical therapy, has not tried dietary modifications. c/o Leaks with laugh/cough/sneeze She leaks with sneeze, She leaks with laugh., She leaks with cough. , She leaks with sex., She wears pads for this problem.. c/o Urge Leakage Patient reports , urgency of urination, urge incontinence, She wears pads for this problem., She has never tried OAB medications.. c/o Bowel symptoms has constipation, uses miralax, has trouble evacuating stool, has to splint to have a bowel movement. c/o Hysterectomy TVH. Denies : Burning with urination. Denies : Prolapse symptoms. Denies : Ever taken OAB medications?. Interim history: Patient presents today for urodynamics and cystoscopy and to determine a treatment plan. She has not tried taking Myrbetriq yet due to fear of allergic reaction and wanting to clarify with neurologist. Assessments 1. Urge incontinence - N39.41 (Primary) 2. Female stress incontinence - N39.3 We discussed the patient's options for her OAB which include expectant management, behavioral modification and bladder training, pelvic floor rehabilitation, anticholinergic medications, Myrbetriq (a B3 adrenergic agonist), or a combinat ion of these treatment modalities. We also discussed the option of sacroneuromodulation (Interstim), UrgentPC or Intravesical Botox. We discussed the importance of decreasing/eliminating her caffeine intake to help improve her urgency and frequency. The patient was counseled on the importance of kegel exercises for urge control. She was given a handout on OAB, bladder training and pelvic floor exercises. No stress incontinence was seen on urodynamics today. Treatment 1. Urge incontinence Continue Myrbetriq Tablet Extended Release 24 Hour, 50 MG, 1 tablet, Orally, Once a day Notes: Educational handouts were given on OAB, pelvic floor exercises and bladder training. I also recommended she listen to the Girl Problems episode on OAB. Trial with Myrbetriq. Will reassess in 4 weeks. Discussed botox as option. She states she gets Botox 200 units injection every 90 days in lower extremities for muscle spascity. Procedures Cystoscopy: Consent: General procedure, indications, risks, benefits, alternative treatments, and expected outcomes have been discussed with this patient. She has had an opportunity to ask questions, and all questions have been answered by me. She verbalizes understanding, and to the best of my knowledge I feel the patient has been adequately informed and consented. The consent form has been signed.. Urethra: Normal. Urothelium: Normal. Ureteral jets, Left: Normal. Ureteral jets, Right: Normal. Glomerulations: None. Trabeculations: None. Ulcers: None. Calculi: None. Tumor: None. Biopsy: No. Post Procedure: All the instruments were removed from the patient. The patient tolerated the procedure well and was discharged from the office in good condition., . Urodynamics *: Procedure Informed consent was obtained , Uroflow performed , Patient was prepped and draped , Catheterization with 120 PVR done , Multichannel cystometrogram done after air-charged abdominal sensor catheter and air-charged duel sensor catheter and eletrode patches placed , Urethral pressure profile at leak point , voiding pressure flow done , all catheters and patches removed , pt to follow up with doctor for results , pt. tolerated procedure well. Urethral pressures Leak point pressure found to be NA, Bladder pressure found to be 152, Peak midurethral pressure found to be76. Urine loss No incontinence demo . Cystometrogram findings in supine position first sensation (more content not included)... Normal [facility] 10-23-2023 CNPN Telephone (GYURWP) SARIKA AVILA ([id number]) 1970 F Date Time Provider Department 10/23/23 [facility], GEGE Hammond GYURWP During your visit today, we recorded the following information about you: Yenny Eason 10/23/2023 1:54 PM Signed Pt called requesting a rx of Myrbetriq to be sent to her pharmacy. She was previously given samples. She can be reached at [phone]. Whitley Lyman, RN 10/23/2023 4:38 PM Signed Called pt. Verified name/ Verified pharmacy. [facility] Pt states myrbetriq is working well, the first time in years she has gotten relief. SABINE 07/22/2023 ASSESSMENTS ASSESSMENTS Encounter Date Diagnosis Assessment Notes Treatment Notes Treatment Clinical Notes 07/22/2023 Urge incontinence (ICD-10 - N39.41) Educational handouts were given on OAB, pelvic floor exercises and bladder training. I also recommended she listen to the Girl Problems episode on OAB. Trial with meds. gave samples. 07/22/2023 Female stress incontinence (ICD-10 - N39.3) She was given an educational handout on stress incontinence. PLAN OF TREATMENT Medication PLAN OF TREATMENT Medication Name Sig Start Date Stop Date Notes Myrbetriq 50 MG 1 tablet Orally Once a day for 30 day(s) 07/22/2023 Treatment Notes PLAN OF TREATMENT Assessment Notes Urge incontinence Educational handouts were given on OAB, pelvic floor exercises and bladder training. I also recommended she listen to the Girl Problems episode on OAB. Trial with meds. gave samples. Female stress incontinence She was given an educational handout on stress incontinence. 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 Whitley Lyman RN October 23, 2023 4:35 PM Maria De Jesus Cleaning APRN.CNC MACHINE OPERATOR 10/24/2023 7:51 AM Signed Has she had any blood work recently to check kidney and liver function while on Myrbetriq? Last blood work I see is 2019. Recommend a CMP if she hasn't had that done in awhile. CMP ordered. Also, it appears a PA will need to be completed for Myrbetriq. Is she completely out of medication? Maria De Jesus Cleaning APRN.Daisy Davila RN 10/24/2023 10:38 AM Signed Attempted to call pt. LVM for pt to call office. Daisy Bhatti RN October 24, 2023 10:38 AM Rosana Wood 10/24/2023 11:03 AM Signed Pt returning call to the nurse. Ashley Rosario, YEISON 10/24/2023 12:51 PM Signed Returned patient's call, verified name and . Patient states she sent her recent CMP results to Dr. Jamison's office, will await those results. Has one week left of Myrbetriq, has been taking for 3 weeks. Ashley Rosario RN Allergies As of Date: 10/23/2023 Noted Allergy Reaction COMPAZINE (PROCHLORPERAZINE EDISY*08/30/2014 1 - Mental Status Change Comments: Other reaction(s): Dizzy/Vertigo, Dyspepsia LATEX 12/10/2015 9 - Itching DOXYCYCLINE 06/06/2018 11 - Vomiting LEVOFLOXACIN 09/04/2011 14 - Other: See Comments 8 - GI Upset Comments: Other reaction(s): Dizzy/Vertigo, GI Upset, Other: See Comments Date Reviewed: 06/05/2020 Reviewed by: Naseem Verdugo (Tech), Tech - Fully Assessed Primary Visit Diagnosis:Urge incontinence [N39.41] Other Visit Diagnosis:Medication management [Z79.899] Order(s):COMP METABOLIC PANEL [SQCMP] Order #: [id number] FUTURE Prescriptions as of 10/24/2023 - cladribine,multiple sclerosis, (MAVENCLAD, 10 TABLET PACK,) 10 mg tablet - acyclovir (ZOVIRAX) 400 mg tablet Take 1 tablet by mouth every 12 hours. - desvenlafaxine ER (PRISTIQ) 50 mg 24 hr tablet Take 1 tablet by mouth every afternoon. - NUEDEXTA 20-10 mg capsule Take 1 capsule by mouth every 12 hours. - fluticasone (FLONASE) 50 mcg/actuation nasal spray Fluticasone Propionate Active 1 SPRAY INTRANASAL DAILY November 18, 2018 1:22pm - gabapentin (NEURONTIN) 100 mg capsule Take 100 mg by mouth three times a day. - losartan (COZAAR) 50 mg tablet Take 1 tablet by mouth every afternoon. - mirabegron (MYRBETRIQ) 50 mg Tb24 Take 1 tablet by mouth once daily. - triamterene-hydroCHLOROthia zide (MAXZIDE-25) 37.5-25 mg per tablet Take 1 tablet by mouth every morning. - buPROPion XL (WELLBUTRIN XL) 150 mg 24 hr tablet - liraglutide (VICTOZA) 0.6 mg/ 0.1 ml subcutaneous pen injector inject 1.8 milligram subcutaneously daily - albuterol HFA (PROVENTIL HFA, VENTOLIN HFA) 90 mcg/actuation inhaler albuterol 90 mcg/actuation aerosol inhaler albuterol 90 mcg/actuation aerosol inhaler 1 PUFF INHALATION NEEDED PRN For Sob AND/Or Wheezing September 19, 2017 Active 09-19-2017 [facility] ([id number]) - cyanocobalamin, vitamin B-12, 1,000 mcg/mL kit Inject as directed once a week. - hydrocortisone 2.5 % ointment - miconazole (MONISTAT-DERM,ROSEMARY) 2 % cream As directed. - nystatin (MYCOSTATIN) powder Apply to affected area twice daily. - folic acid 800 mcg tablet every day - baclofen (more content not included)... Normal [facility] CNOVon 10-08-2023 CNOV Office Visit (NEAGCL M) SARIKA AVILA ([id number]) 1970 F Date Time Provider Department 10/08/23 10:00 AM AURA DENNISON I NEAGCLM During your visit today, we recorded the following information about you: Pulse Respiration Blood pressure Weight 59/minute 16/minute 146/74 102.8 kg Height 1.6 m Aura Dennison I, MD 10/08/2023 11:21 AM Signed NEUROSURGERY CONSULT NOTE Aura Dennison MD Chair, Clinical Neurosciences Director, Spinal Neurosurgery [facility] Date of visit: October 08, 2023 Patient Name: Ms.Kimberly Harper Avila Date of : 1970 Current Age: [age] year old Sex: female MRN/E# [id number] Last Office Visit: Visit date not found Chief Complaint: Patient presents with: New Patient Past Medical/Surgical History: Sarika Avila is a 53 year old female who is referred by Dr. Tanya Herron with the [facility] for neurosurgical evaluation of the cervical spine. The patient has a history of MS, DM, hypothyroidism, osteopenia and HTN. Surgical Risk Factors: Smoking status: Former, quit 3 years ago Alcohol use: Denies Anticoagulants/antiplatelet s: No Diabetic: Yes, no recent hgbA1c BMI: [...] Dose Jian Celebrex Baclofen Gabapentin PT/OT: @ [employer] | Anywhere in [place] Botox injections for spastic diplegia PREVIOUS SURGERY: No spine surgery PAIN EVALUATION 10/06/20232104 Pain Level: 6 Pain Location: Neck Description: Aching;Burning;Dull;Numbnes s;Radiating;Sharp;Spasm Duration Amount of Time: 5.5 Duration Units: Months Intervention/Comfort measure: Medication;Reposition;Cold; Exercise;Heat;Massage;Posit ioning Comments: Radiating from neck down left shoulder [...] SURG CHOLECYSTECTOMY 2014 Cholecystectomy, lap LAPS ABD PRTMANDOMENTUM DX W/WO SPEC BR/WA SPX Laparoscopy, Multiple PAST SURGICAL HISTORY OF [place] tooth extraction x 4 TONSILLECTOMY PRIMARY/SECONDARY Tonsillectomy [...] November 18, 2018 1:22pm gabapentin (NEURONTIN) 100 m (more content not included)... Normal [facility] XR CERVICAL 4V AP/LAT/FLX/EX Ton 10-08-2023 XR CERVICAL 4V AP/LAT/FLX/EXT * * *Final Report* * * DATE OF EXAM: Oct 08 2023 10:08AM [id number] - XR CERVICAL 4V AP/LAT/FLX/EXT / PROCEDURE REASON: Cervical disc disorder with radiculopathy * * * * Physician Interpretation * * * * EXAM: CERVICAL SPINE 5 VIEWS CLINICAL: 53-year-old female with cervical disc disorder with radiculopathy TECHNIQUE: AP, lateral, lateral flexion-extension, swimmers view COMPARISON: None RESULTS: Counting reference: Craniocervical junction. Marked narrowing C5/C6 and moderate to marked narrowing C6/C7 disc spaces with anterior and uncovertebral osteophytes at these levels. Less than 2 mm subluxation with flexion-extension at C4/C5, no instability flexion-extension. Facet joints are maintained. IMPRESSION: DEGENERATIVE DISC DISEASE IN THE LOWER CERVICAL SPINE. Wind Turbine Engineer: VIKI Transcribe Date/Time: Oct 09 2023 4:46P Dictated by : KIMBERLY ORTIZ MD This examination was interpreted and the report reviewed and electronically signed by: KIMBERLY ORTIZ MD on Oct 09 2023 4:48PM EST [id number] Normal [facility] GLUCOSE BY METERon Glucose [Mass/Vol] 134 mg/dL High 65-110 [facility] Comment on above: Performed By: #### G LUM #### [facility] [address] [place] [address] [employer] Care Worker - Rosanna SWANSONIA [id number] Basic metabolic 2000 panelon 02-13-2023 Anion gap [Moles/Vol] 1.0 mmol/L Normal <=15.0 [facility] Comment on above: Performed By: #### 2 4321-2 #### [facility] [address] [place] [address] [employer] Hours Care Worker - Rosanna SWANSONIA [id number] Calcium [Mass/Vol] 9.1 mg/dL Normal 8.5-10.1 [facility] Comment on above: Performed By: #### 2 4321-2 #### [facility] [address] [place] [address] [employer] Hours Care Worker - Rosanna SWANSONIA [id number] Chloride [Moles/Vol] 109 mmol/L High 98-107 [facility] Comment on above: Performed By: #### 2 4321-2 #### [facility] [address] [place] [address] Out Of [employer] Hours Care Worker - Rosanna SWANSONIA [id number] CO2 [Moles/Vol] 29 mmol/L Normal 21-32 [facility] Comment on above: Performed By: #### 2 4321-2 #### [facility] [address] [place] [address] Out [employer] Hours Care Worker - Rosanna SWANSONIA [id number] Creatinine [Mass/Vol] 1.48 mg/dL High 0.51-0.95 [facility] Comment on above: Performed By: #### 2 4321-2 #### [facility] [address] [place] [address] Out Of [employer] Hours Care Worker - Rosanna SWANSONIA [id number] GFR/1.73 sq M.predicted MDRD (S/P/Bld) [Vol rate/Area] 37 mL/min/{1.73_m2} Low >=59 [facility] Comment on above: Performed By: #### 2 4321-2 #### [facility] [address] [facility] [place] [address] Out [employer] Hours Care Worker - Rosanna COX [id number] Glucose [Mass/Vol] 85 mg/dL Normal 74-106 [facility] Comment on above: Performed By: #### 2 4321-2 #### [facility] [address] [place] [address] Out Of School Hours Care Worker - Rosanna COX [id number] HGFR GLOMERULAR FILTRATIO N RATE INTERPRETATION~The eGFR is calculated using the MDRD equation.~This equation has been validated in patients with chronic kidney disease;~however, it underestimates the GFR in healthy patients with GFR's over 60 mL/min.~The equation is not valid in children under the age of 18.~NOTE: Criteria for Chronic Kidney Disease:~ ~1. Kidney damage for at least three months, as defined~by structural or functional abnormalities of the kidney,~with or without decreased glomerular filtration rate, manifested by either:~* Pathological abnormalities or~* Markers of Kidney damage, including abnormalities in~the composition of the blood or urine or abnormalities in imaging tests.~ ~2. GFR <60 mL/min/1.73 m squared for at least three months, with or without kidney damage.~ Normal [facility] Comment on above: Performed By: #### 2 4321-2 #### [facility] [address] [facility] [place] [address] Out [employer] Hours Care Worker - Rosanna COX [id number] Potassium [Moles/Vol] 4.3 mmol/L Normal 3.5-5.1 [facility] Comment on above: Performed By: #### 2 4321-2 #### [facility] [address] [facility] [place] [address] Out [employer] Hours Care Worker - Rosanna COX [id number] Sodium [Moles/Vol] 139 mmol/L Normal 136-145 [facility] Comment on above: Performed By: #### 2 4321-2 #### [facility] [address] [place], [place] [address] Out [employer] Hours Care Worker - Rosanna COX [id number] Urea nitrogen [Mass/Vol] 18 mg/dL High 7-17 [facility] Comment on above: Performed By: #### 2 4321-2 #### [facility] [address] [place], [place] [address] Out [employer] Hours Care Worker - Rosanna Verdugobrittani COX [id number] MRI SHOULDER WO CONTRAST RTo n 01-12-2023 MRI SHOULDER WO CONTRAST RT EXAM: MRI SHOULDER WO CONTRAST RT COMPARISON: Right humerus x-rays from 08/09/2022. HISTORY: Injury to the shoulder in August after carrying and throwing heavy object. The patient heard a crack and has had pain since that time. TECHNIQUE: Multiplanar and multisequence imaging of the right shoulder was performed without contrast. FINDINGS: Moderate degenerative change involves the acromioclavicular joint with joint space narrowing, marginal osteophytes and capsular hypertrophy. There is a type II acromion. A small amount of subacromial fluid is evident. Heterogeneous intermediate signal of the supraspinatus and infraspinatus is consistent with moderate tendinopathy. There is a superimposed focal intermediate grade partial thickness bursal sided tear of the supraspinatus towards the insertion anteriorly. The tear measures approximately 7 mm in AP and transverse dimensions and involves 40%-50% of the width of the tendon best seen on sagittal fat-saturated T2 and STIR image 6 and coronal fat-saturated T2 image 11. There is mild tendinopathy of the subscapularis with no additional rotator cuff tear. There is no atrophy of the rotator cuff muscles. The long head of the biceps tendon appears relatively small in size at the level of the bicipital groove with motion artifact on the axial images degrading evaluation. There is suspected at least low-grade partial thickness tear of the biceps tendon at the level of the bicipital groove. The glenohumeral alignment is anatomic. No discrete labral tear is evident. There is no paralabral cyst. No acute bony abnormality is identified. IMPRESSION: 1. There is moderate tendinopathy of the supraspinatus and infraspinatus tendons with a superimposed intermediate grade partial thickness bursal sided tear of the distal supraspinatus anteriorly measuring approximately 7 mm in AP and transverse dimensions. 2. There is mild tendinopathy of the subscapularis with no additional rotator cuff tear. 3. The biceps tendon is small in size at the level of bicipital groove with suspected at least low-grade partial thickness tear of the biceps tendon. 4. Moderate degenerative change involves the acromioclavicular joint. 5. A small amount of subacromial fluid is suspicious for mild bursitis. Normal [facility] Absolute lymphocyte counton 07-11-2022 Lymphocytes Auto (Unsp spec) [#/Vol] 1.55 10*3/uL 0.83-4.51 [facility] Work Phone: Basophil percentageon 2021 Basophils/100 WBC (Bld) 0.7 % 0-1 [facility] Work Phone: Eosinophils/100 WBC (Bld) 1.0 % 0-5 [facility] Work Phone: Neutrophils (Bld) [#/Vol] 4.1 10*3/uL 2.0-7.7 [facility] Work Phone: Neutrophils/100 WBC (Bld) 66.7 % 47-70 [facility] Work Phone: WBC (Bld) [#/Vol] 6.1 10*3/uL 4.4-11.0 [facility] Work Phone: Blood erythrocytes count (nu mber/volume)on 07-11-2022 RBC (Bld) [#/Vol] 3.96 10*6/uL 4.2-5.4 [facility] [place] [facility] Work Phone: Blood hemoglobin measurement (mass/volume)on 07-11-2022 Hemoglobin (Bld) [Mass/Vol] 13.1 g/dL 12.0-15.0 [facility] Work Phone: Blood lymphocytes/100 leukoc yteson 07-11-2022 Lymphocytes/100 WBC (Bld) 25.4 % 19-41 [facility] Work Phone: Blood monocytes/100 leukocyt eson 07-11-2022 Monocytes/100 WBC (Bld) 5.9 % 0-10 [facility] Work Phone: Blood platelet mean volumeon 07-11-2022 Platelet mean volume (Bld) [Entitic vol] 8.8 fL 6.2-12.0 [facility] Work Phone: Determination of erythrocyte mean corpuscular volume (MCV)on 07-11-2022 MCV (RBC) [Entitic vol] 100.8 fL 81-99 [facility] Work Phone: Hematocrit Auto (Bld) [Volum e fraction]on 07-11-2022 Hematocrit (Bld) [Volume fraction] 39.9 % 37-47 [facility] Work Phone: Laboratory - Hematology and Cell countson 07-11-2022 Erythrocyte distribution width (RBC) [Entitic vol] 49.1 fL 35.1-43.9 [facility] Work Phone: Erythrocyte distribution width (RBC) [Ratio] 13.2 % 11.6-14.6 [facility] Work Phone: [phone] Immature granulocytes/100 WBC (Bld) 0.300 % 0.0-0.9 [facility] Work Phone: Comment on above: IG% - Immature Granu locytes (promyelocytes, myelocytes and metamyelocytes) > 1% indicates that a LEFT SHIFT is Present. MCH (RBC) [Entitic mass] 33.1 pg 27.0-32.0 [facility] Work Phone: Nucleated RBC/100 WBC (Bld) [Ratio] 0 % 0-5 [facility] Work Phone: MCHC Auto (RBC) [Mass/Vol]on 07-11-2022 MCHC (RBC) [Mass/Vol] 32.8 g/dL 32-36 [facility] Work Phone: Platelets bldon 07-11-2022 Platelets (Bld) [#/Vol] 237 10*3/uL 150-450 [facility] Work Phone: Absolute lymphocyte counton 06-11-2022 Lymphocytes Auto (Unsp spec) [#/Vol] 2.02 10*3/uL 0.83-4.51 [facility] Work Phone: Basophil percentageon 2021 Basophils/100 WBC (Bld) 0.8 % 0-1 [facility] Work Phone: Eosinophils/100 WBC (Bld) 1.1 % 0-5 [facility] Work Phone: Neutrophils (Bld) [#/Vol] 4.8 10*3/uL 2.0-7.7 [facility] Work Phone: Neutrophils/100 WBC (Bld) 64.6 % 47-70 [facility] Work Phone: WBC (Bld) [#/Vol] 7.4 10*3/uL 4.4-11.0 [facility] Work Phone: Blood erythrocytes count (nu mber/volume)on 06-11-2022 RBC (Bld) [#/Vol] 3.88 10*6/uL 4.2-5.4 [facility] Work Phone: Blood hemoglobin measurement (mass/volume)on 06-11-2022 Hemoglobin (Bld) [Mass/Vol] 12.7 g/dL 12.0-15.0 [facility] Work Phone: Blood lymphocytes/100 leukoc yteson 06-11-2022 Lymphocytes/100 WBC (Bld) 27.4 % 19-41 [facility] Work Phone: Blood monocytes/100 leukocyt eson 06-11-2022 Monocytes/100 WBC (Bld) 5.6 % 0-10 [facility] Work Phone: Blood platelet mean volumeon 06-11-2022 Platelet mean volume (Bld) [Entitic vol] 8.9 fL 6.2-12.0 [facility] Work Phone: Determination of erythrocyte mean corpuscular volume (MCV)on 06-11-2022 MCV (RBC) [Entitic vol] 99.5 fL 81-99 [facility] Work Phone: Hematocrit Auto (Bld) [Volum e fraction]on 06-11-2022 Hematocrit (Bld) [Volume fraction] 38.6 % 37-47 [facility] Work Phone: Laboratory - Hematology and Cell countson 06-11-2022 Erythrocyte distribution width (RBC) [Entitic vol] 48.9 fL 35.1-43.9 [facility] Work Phone: Erythrocyte distribution width (RBC) [Ratio] 13.3 % 11.6-14.6 [facility] Work Phone: Immature granulocytes/100 WBC (Bld) 0.500 % 0.0-0.9 [facility] Work Phone: Comment on above: IG% - Immature Granu locytes (promyelocytes, myelocytes and metamyelocytes) > 1% indicates that a LEFT SHIFT is Present. MCH (RBC) [Entitic mass] 32.7 pg 27.0-32.0 [facility] Work Phone: Nucleated RBC/100 WBC (Bld) [Ratio] 0 % 0-5 [facility] Work Phone: MCHC Auto (RBC) [Mass/Vol]on 06-11-2022 MCHC (RBC) [Mass/Vol] 32.9 g/dL 32-36 [facility] Work Phone: Platelets bldon 06-11-2022 Platelets (Bld) [#/Vol] 253 10*3/uL 150-450 [facility] Work Phone: Absolute lymphocyte counton 05-01-2022 Lymphocytes Auto (Unsp spec) [#/Vol] 1.78 10*3/uL 0.83-4.51 [facility] Work Phone: Basophil percentageon 2021 Basophils/100 WBC (Bld) 0.8 % 0-1 [facility] Work Phone: Bilirubin [Mass/Vol] 0.50 mg/dL 0.20-1.00 [facility] Work Phone: [phone] Comment on above: For patients on eltr ombopag therapy, use of Dimension [place] TBIL is not recommended. Chloride [Moles/Vol] 104 mmol/L 98-107 [facility] Work Phone: [phone] Eosinophils/100 WBC (Bld) 1.0 % 0-5 [facility] Work Phone: [phone] Glucose [Mass/Vol] 90 mg/dL 74-106 [facility] Work Phone: Neutrophils (Bld) [#/Vol] 4.0 10*3/uL 2.0-7.7 [facility] Work Phone: Neutrophils/100 WBC (Bld) 63.9 % 47-70 [facility] Work Phone: Potassium [Moles/Vol] 4.5 mmol/L 3.5-5.1 [facility] Work Phone: Protein [Mass/Vol] 7.2 g/dL 6.4-8.2 [facility] Work Phone: Sodium [Moles/Vol] 137 mmol/L 136-145 [facility] Work Phone: [phone] WBC (Bld) [#/Vol] 6.3 10*3/uL 4.4-11.0 [facility] Work Phone: Blood erythrocytes count (nu mber/volume)on 05-01-2022 RBC (Bld) [#/Vol] 4.05 10*6/uL 4.2-5.4 [facility] [place] [facility] Work Phone: Blood hemoglobin measurement (mass/volume)on 05-01-2022 Hemoglobin (Bld) [Mass/Vol] 13.2 g/dL 12.0-15.0 [facility] Work Phone: [phone] Blood lymphocytes/100 leukoc yteson 05-01-2022 Lymphocytes/100 WBC (Bld) 28.3 % 19-41 [facility] Work Phone: Blood monocytes/100 leukocyt eson 05-01-2022 Monocytes/100 WBC (Bld) 5.7 % 0-10 [facility] Work Phone: Blood platelet mean volumeon 05-01-2022 Platelet mean volume (Bld) [Entitic vol] 9.0 fL 6.2-12.0 [facility] Work Phone: Determination of erythrocyte mean corpuscular volume (MCV)on 05-01-2022 MCV (RBC) [Entitic vol] 97.3 fL 81-99 [facility] Work Phone: Hematocrit Auto (Bld) [Volum e fraction]on 05-01-2022 Hematocrit (Bld) [Volume fraction] 39.4 % 37-47 [facility] Work Phone: Laboratory - Chemistry and C hemistry - challengeon 05-01-2022 ALP [Catalytic activity/Vol] 69 U/L 45-117 [facility] Work Phone: ALT [Catalytic activity/Vol] 21 U/L 13-56 [facility] Work Phone: CO2 [Moles/Vol] 23.0 mmol/L 21.0-32.0 [facility] Work Phone: Free T4 [Mass/Vol] 0.91 ng/dL 0.76-1.46 [facility] Work Phone: Globulin (S) [Mass/Vol] 3.5 g/dL 2.2-4.2 [facility] Work Phone: Urea nitrogen/Creatinine [Mass ratio] 15.9 mg/mg 10-20 [facility] Work Phone: Laboratory - Hematology and Cell countson 05-01-2022 Erythrocyte distribution width (RBC) [Entitic vol] 47.1 fL 35.1-43.9 [facility] Work Phone: Erythrocyte distribution width (RBC) [Ratio] 13.2 % 11.6-14.6 [facility] Work Phone: Immature granulocytes/100 WBC (Bld) 0.300 % 0.0-0.9 [facility] Work Phone: Comment on above: IG% - Immature Granu locytes (promyelocytes, myelocytes and metamyelocytes) > 1% indicates that a LEFT SHIFT is Present. MCH (RBC) [Entitic mass] 32.6 pg 27.0-32.0 [facility] Work Phone: Nucleated RBC/100 WBC (Bld) [Ratio] 0 % 0-5 [facility] Work Phone: MCHC Auto (RBC) [Mass/Vol]on 05-01-2022 MCHC (RBC) [Mass/Vol] 33.5 g/dL 32-36 [facility] Work Phone: No Panel Informationon 05-01 Estimated GFR (MDRD) Amer 65 mL/min >60 [facility] Work Phone: Comment on above: GFR Calc Estimated GFR (MDRD) Non-Af Amer 54 mL/min >60 [facility] Work Phone: Comment on above: Non- GFR Calc Free Triiodothyronine (T3) pg/dL 3.4 pg/mL 2.18-3.98 [facility] Work Phone: Thyroid Stimulating Hormone (TSH) 1.11 uIU/mL 0.358-3.74 [facility] Work Phone: Platelets bldon 05-01-2022 Platelets (Bld) [#/Vol] 243 10*3/uL 150-450 [facility] Work Phone: Serum or plasma albumin derrick urement (mass/volume)on 05-01-2022 Albumin [Mass/Vol] 3.7 g/dL 3.2-5.0 [facility] Work Phone: Serum or plasma albumin/glob ulin mass ratioon 05-01-2022 Albumin/Globulin [Mass ratio] 1.1 {ratio} 0.9-2.4 [facility] Work Phone: Serum or plasma calcium derrick urement (mass/volume)on 05-01-2022 Calcium [Mass/Vol] 9.4 mg/dL 8.5-10.1 [facility] Work Phone: Serum or plasma creatinine m easurement (mass/volume)on 05-01-2022 Creatinine [Mass/Vol] 1.13 mg/dL 0.55-1.02 [facility] Work Phone: Comment on above: The validity of the calculated GFR & GFRAA in patients over 70 years has not been determined. Clinical correlation is essential. Serum or plasma urea nitroge n measurement (mass/volume)on 05-01-2022 Urea nitrogen [Mass/Vol] 18 mg/dL 7-18 [facility] Work Phone: Thin prep Papanicolaou smear with manual screeningon 05-01-2022 Thin prep Papanicolaou smear with manual screening 20 U/L 15-37 [facility] Work Phone: Thin prep Papanicolaou smear with manual screening 10 5-15 [facility] Work Phone: Absolute lymphocyte counton 03-30-2022 Lymphocytes Auto (Unsp spec) [#/Vol] 1.83 10*3/uL 0.83-4.51 [facility] Work Phone: Basophil percentageon 2021 Basophils/100 WBC (Bld) 0.5 % 0-1 [facility] Work Phone: Eosinophils/100 WBC (Bld) 0.8 % 0-5 [facility] Work Phone: [phone] Neutrophils (Bld) [#/Vol] 4.0 10*3/uL 2.0-7.7 [facility] Work Phone: Neutrophils/100 WBC (Bld) 62.8 % 47-70 [facility] Work Phone: WBC (Bld) [#/Vol] 6.3 10*3/uL 4.4-11.0 [facility] Work Phone: Blood erythrocytes count (nu mber/volume)on 03-30-2022 RBC (Bld) [#/Vol] 3.92 10*6/uL 4.2-5.4 [facility] Work Phone: Blood hemoglobin measurement (mass/volume)on 03-30-2022 Hemoglobin (Bld) [Mass/Vol] 12.9 g/dL 12.0-15.0 [facility] Work Phone: Blood lymphocytes/100 leukoc yteson 03-30-2022 Lymphocytes/100 WBC (Bld) 29.0 % 19-41 [facility] Work Phone: Blood monocytes/100 leukocyt eson 03-30-2022 Monocytes/100 WBC (Bld) 6.7 % 0-10 [facility] Work Phone: Blood platelet mean volumeon 03-30-2022 Platelet mean volume (Bld) [Entitic vol] 8.6 fL 6.2-12.0 [facility] Work Phone: Determination of erythrocyte mean corpuscular volume (MCV)on 03-30-2022 MCV (RBC) [Entitic vol] 98.0 fL 81-99 [facility] Work Phone: Hematocrit Auto (Bld) [Volum e fraction]on 03-30-2022 Hematocrit (Bld) [Volume fraction] 38.4 % 37-47 [facility] Work Phone: Laboratory - Hematology and Cell countson 03-30-2022 Erythrocyte distribution width (RBC) [Entitic vol] 47.5 fL 35.1-43.9 [facility] Work Phone: Erythrocyte distribution width (RBC) [Ratio] 13.2 % 11.6-14.6 [facility] Work Phone: Immature granulocytes/100 WBC (Bld) 0.200 % 0.0-0.9 [facility] Work Phone: Comment on above: IG% - Immature Granu locytes (promyelocytes, myelocytes and metamyelocytes) > 1% indicates that a LEFT SHIFT is Present. MCH (RBC) [Entitic mass] 32.9 pg 27.0-32.0 [facility] Work Phone: Nucleated RBC/100 WBC (Bld) [Ratio] 0 % 0-5 [facility] Work Phone: MCHC Auto (RBC) [Mass/Vol]on 03-30-2022 MCHC (RBC) [Mass/Vol] 33.6 g/dL 32-36 [facility] Work Phone: Platelets bldon 03-30-2022 Platelets (Bld) [#/Vol] 215 10*3/uL 150-450 [facility] Work Phone: Absolute lymphocyte counton 02-22-2022 Lymphocytes Auto (Unsp spec) [#/Vol] 1.54 10*3/uL 0.83-4.51 [facility] Work Phone: Basophil percentageon 2021 Basophils/100 WBC (Bld) 0.7 % 0-1 [facility] Work Phone: Eosinophils/100 WBC (Bld) 1.2 % 0-5 [facility] Work Phone: Neutrophils (Bld) [#/Vol] 3.8 10*3/uL 2.0-7.7 [facility] Work Phone: Neutrophils/100 WBC (Bld) 65.6 % 47-70 [facility] Work Phone: WBC (Bld) [#/Vol] 5.8 10*3/uL 4.4-11.0 [facility]: Blood erythrocytes count (nu mber/volume)on 02-22-2022 RBC (Bld) [#/Vol] 3.79 10*6/uL 4.2-5.4 [facility] Work Phone: Blood hemoglobin measurement (mass/volume)on 02-22-2022 Hemoglobin (Bld) [Mass/Vol] 12.2 g/dL 12.0-15.0 [facility] Work Phone: Blood lymphocytes/100 leukoc yteson 02-22-2022 Lymphocytes/100 WBC (Bld) 26.4 % 19-41 [facility] Work Phone: Blood monocytes/100 leukocyt eson 02-22-2022 Monocytes/100 WBC (Bld) 5.8 % 0-10 [facility] Work Phone: Blood platelet mean volumeon 02-22-2022 Platelet mean volume (Bld) [Entitic vol] 8.5 fL 6.2-12.0 [facility] Work Phone: Determination of erythrocyte mean corpuscular volume (MCV)on 02-22-2022 MCV (RBC) [Entitic vol] 98.9 fL 81-99 [facility] Work Phone: Hematocrit Auto (Bld) [Volum e fraction]on 02-22-2022 Hematocrit (Bld) [Volume fraction] 37.5 % 37-47 [facility] Work Phone: Laboratory - Hematology and Cell countson 02-22-2022 Erythrocyte distribution width (RBC) [Entitic vol] 45.9 fL 35.1-43.9 [facility] Work Phone: Erythrocyte distribution width (RBC) [Ratio] 12.7 % 11.6-14.6 [facility] Work Phone: Immature granulocytes/100 WBC (Bld) 0.300 % 0.0-0.9 [facility] Work Phone: Comment on above: IG% - Immature Granu locytes (promyelocytes, myelocytes and metamyelocytes) > 1% indicates that a LEFT SHIFT is Present. MCH (RBC) [Entitic mass] 32.2 pg 27.0-32.0 [facility] Work Phone: Nucleated RBC/100 WBC (Bld) [Ratio] 0 % 0-5 [facility] Work Phone: MCHC Auto (RBC) [Mass/Vol]on 02-22-2022 MCHC (RBC) [Mass/Vol] 32.5 g/dL 32-36 [facility] Work Phone: Platelets bldon 02-22-2022 Platelets (Bld) [#/Vol] 227 10*3/uL 150-450 [facility] Work Phone: Absolute lymphocyte counton 01-24-2022 Lymphocytes Auto (Unsp spec) [#/Vol] 1.40 10*3/uL 0.83-4.51 [facility] Work Phone: Basophil percentageon 2021 Basophils/100 WBC (Bld) 0.8 % 0-1 [facility] Work Phone: Eosinophils/100 WBC (Bld) 1.9 % 0-5 [facility] Work Phone: Neutrophils (Bld) [#/Vol] 3.5 10*3/uL 2.0-7.7 [facility] Work Phone: Neutrophils/100 WBC (Bld) 64.9 % 47-70 [facility] Work Phone: WBC (Bld) [#/Vol] 5.3 10*3/uL 4.4-11.0 [facility] Work Phone: Blood erythrocytes count (nu mber/volume)on 01-24-2022 RBC (Bld) [#/Vol] 3.91 10*6/uL 4.2-5.4 [facility] Work Phone: Blood hemoglobin measurement (mass/volume)on 01-24-2022 Hemoglobin (Bld) [Mass/Vol] 12.5 g/dL 12.0-15.0 [facility] Work Phone: Blood lymphocytes/100 leukoc yteson 01-24-2022 Lymphocytes/100 WBC (Bld) 26.4 % 19-41 [facility] Work Phone: Blood monocytes/100 leukocyt eson 01-24-2022 Monocytes/100 WBC (Bld) 5.6 % 0-10 [facility] Work Phone: Blood platelet mean volumeon 01-24-2022 Platelet mean volume (Bld) [Entitic vol] 9.1 fL 6.2-12.0 [facility] Work Phone: Determination of erythrocyte mean corpuscular volume (MCV)on 01-24-2022 MCV (RBC) [Entitic vol] 97.7 fL 81-99 [facility] Work Phone: Hematocrit Auto (Bld) [Volum e fraction]on 01-24-2022 Hematocrit (Bld) [Volume fraction] 38.2 % 37-47 [facility] Work Phone: Laboratory - Hematology and Cell countson 01-24-2022 Erythrocyte distribution width (RBC) [Entitic vol] 44.6 fL 35.1-43.9 [facility] Work Phone: Erythrocyte distribution width (RBC) [Ratio] 12.4 % 11.6-14.6 [facility] Work Phone: Immature granulocytes/100 WBC (Bld) 0.400 % 0.0-0.9 [facility] Work Phone: Comment on above: IG% - Immature Granu locytes (promyelocytes, myelocytes and metamyelocytes) > 1% indicates that a LEFT SHIFT is Present. MCH (RBC) [Entitic mass] 32.0 pg 27.0-32.0 [facility] Work Phone: Nucleated RBC/100 WBC (Bld) [Ratio] 0 % 0-5 [facility] Work Phone: MCHC Auto (RBC) [Mass/Vol]on 01-24-2022 MCHC (RBC) [Mass/Vol] 32.7 g/dL 32-[facility]: Platelets bldon 01-24-2022 Platelets (Bld) [#/Vol] 232 10*3/uL 150-450 [facility] Work Phone: Absolute lymphocyte counton 12-26-2021 Lymphocytes Auto (Unsp spec) [#/Vol] 1.31 10*3/uL 0.83-4.51 [facility] Work Phone: Basophil percentageon 2021 Basophils/100 WBC (Bld) 0.8 % 0-1 [facility] Work Phone: [phone] Eosinophils/100 WBC (Bld) 1.0 % 0-5 [facility] Work Phone: [phone] Neutrophils (Bld) [#/Vol] 3.3 10*3/uL 2.0-7.7 [facility] Work Phone: [phone] Neutrophils/100 WBC (Bld) 65.0 % 47-70 [facility] Work Phone: WBC (Bld) [#/Vol] 5.1 10*3/uL 4.4-11.0 [facility] Work Phone: Blood erythrocytes count (nu mber/volume)on 12-26-2021 RBC (Bld) [#/Vol] 3.92 10*6/uL 4.2-5.4 [facility] Work Phone: Blood hemoglobin measurement (mass/volume)on 12-26-2021 Hemoglobin (Bld) [Mass/Vol] 12.6 g/dL 12.0-15.0 [facility] Work Phone: Blood lymphocytes/100 leukoc yteson 12-26-2021 Lymphocytes/100 WBC (Bld) 25.6 % 19-41 [facility] Work Phone: Blood monocytes/100 leukocyt eson 12-26-2021 Monocytes/100 WBC (Bld) 7.4 % 0-10 [facility] Work Phone: Blood platelet mean volumeon 12-26-2021 Platelet mean volume (Bld) [Entitic vol] 8.9 fL 6.2-12.0 [facility] Work Phone: Determination of erythrocyte mean corpuscular volume (MCV)on 12-26-2021 MCV (RBC) [Entitic vol] 100.8 fL 81-99 [facility] Work Phone: Hematocrit Auto (Bld) [Volum e fraction]on 12-26-2021 Hematocrit (Bld) [Volume fraction] 39.5 % 37-47 [facility] Work Phone: Laboratory - Hematology and Cell countson 12-26-2021 Erythrocyte distribution width (RBC) [Entitic vol] 46.5 fL 35.1-43.9 [facility] Work Phone: [phone] Erythrocyte distribution width (RBC) [Ratio] 12.4 % 11.6-14.6 [facility] Work Phone: Immature granulocytes/100 WBC (Bld) 0.200 % 0.0-0.9 [facility] Work Phone: Comment on above: IG% - Immature Granu locytes (promyelocytes, myelocytes and metamyelocytes) > 1% indicates that a LEFT SHIFT is Present. MCH (RBC) [Entitic mass] 32.1 pg 27.0-32.0 [facility] Work Phone: [phone] Nucleated RBC/100 WBC (Bld) [Ratio] 0 % 0-5 [facility] Work Phone: MCHC Auto (RBC) [Mass/Vol]on 12-26-2021 MCHC (RBC) [Mass/Vol] 31.9 g/dL 32-36 [facility] Work Phone: Platelets bldon 12-26-2021 Platelets (Bld) [#/Vol] 223 10*3/uL 150-450 [facility] Work Phone: Absolute lymphocyte counton 11-28-2021 Lymphocytes Auto (Unsp spec) [#/Vol] 1.52 10*3/uL 0.83-4.51 [facility] Work Phone: [phone] Basophil percentageon 2021 Basophils/100 WBC (Bld) 0.8 % 0-1 [facility] Work Phone: Eosinophils/100 WBC (Bld) 1.2 % 0-5 [facility] Work Phone: Neutrophils (Bld) [#/Vol] 3.1 10*3/uL 2.0-7.7 [facility] Work Phone: Neutrophils/100 WBC (Bld) 60.9 % 47-70 [facility] Work Phone: WBC (Bld) [#/Vol] 5.0 10*3/uL 4.4-11.0 [facility] Work Phone: Blood erythrocytes count (nu mber/volume)on 11-28-2021 RBC (Bld) [#/Vol] 3.92 10*6/uL 4.2-5.4 [facility] Work Phone: Blood hemoglobin measurement (mass/volume)on 11-28-2021 Hemoglobin (Bld) [Mass/Vol] 12.8 g/dL 12.0-15.0 [facility] Work Phone: Blood lymphocytes/100 leukoc yteson 11-28-2021 Lymphocytes/100 WBC (Bld) 30.2 % 19-41 [facility] Work Phone: Blood monocytes/100 leukocyt eson 11-28-2021 Monocytes/100 WBC (Bld) 6.7 % 0-10 [facility] Work Phone: Blood platelet mean volumeon 11-28-2021 Platelet mean volume (Bld) [Entitic vol] 8.9 fL 6.2-12.0 [facility] Work Phone: Determination of erythrocyte mean corpuscular volume (MCV)on 11-28-2021 MCV (RBC) [Entitic vol] 101.0 fL 81-99 [facility] Work Phone: Hematocrit Auto (Bld) [Volum e fraction]on 11-28-2021 Hematocrit (Bld) [Volume fraction] 39.6 % 37-47 [facility] Work Phone: Laboratory - Hematology and Cell countson 11-28-2021 Erythrocyte distribution width (RBC) [Entitic vol] 47.0 fL 35.1-43.9 [facility] Work Phone: Erythrocyte distribution width (RBC) [Ratio] 12.5 % 11.6-14.6 [facility] Work Phone: Immature granulocytes/100 WBC (Bld) 0.200 % 0.0-0.9 [facility] Work Phone: Comment on above: IG% - Immature Granu locytes (promyelocytes, myelocytes and metamyelocytes) > 1% indicates that a LEFT SHIFT is Present. MCH (RBC) [Entitic mass] 32.7 pg 27.0-32.0 [facility] Work Phone: Nucleated RBC/100 WBC (Bld) [Ratio] 0 % 0-5 [facility] Work Phone: MCHC Auto (RBC) [Mass/Vol]on 11-28-2021 MCHC (RBC) [Mass/Vol] 32.3 g/dL 32-36 [facility] Work Phone: Platelets bldon 11-28-2021 Platelets (Bld) [#/Vol] 214 10*3/uL 150-450 [facility] Work Phone: Basophil percentageon 2021 Bilirubin [Mass/Vol] 0.40 mg/dL 0.20-1.00 [facility] Work Phone: Comment on above: For patients on eltr ombopag therapy, use of Dimension [place] TBIL is not recommended. Chloride [Moles/Vol] 109 mmol/L 98-107 [facility] Work Phone: Cholesterol [Mass/Vol] 158 mg/dL <200 [facility] Work Phone: Comment on above: <200 mg/dL Desirable 200-240 mg/dL Borderline >240 mg/dL High Risk Glucose [Mass/Vol] 94 mg/dL 74-106 [facility] Work Phone: Potassium [Moles/Vol] 3.9 mmol/L 3.5-5.1 [facility] Work Phone: Protein [Mass/Vol] 6.8 g/dL 6.4-8.2 [facility] Work Phone: Sodium [Moles/Vol] 139 mmol/L 136-145 [facility] Work Phone: Triglyceride [Mass/Vol] 64 mg/dL <199 [facility] Work Phone: Comment on above: The drugs N-Acetylcy steine and Metamizole may falsely depress this assay.Serum Triglycerides Reference Interval Normal <150 mg/dL Borderline high 150 - 199 mg/dL High 200 - 499 mg/dL Very High > or = 500 mg/dL Laboratory - Chemistry and C hemistry - challengeon 10-26-2021 ALP [Catalytic activity/Vol] 68 U/L 45-117 [facility] Work Phone: ALT [Catalytic activity/Vol] 15 U/L 13-56 [facility] Work Phone: CO2 [Moles/Vol] 26.0 mmol/L 21.0-32.0 [facility] Work Phone: Free T4 [Mass/Vol] 0.85 ng/dL 0.76-1.46 [facility] Work Phone: Globulin (S) [Mass/Vol] 3.1 g/dL 2.2-4.2 [facility] Work Phone: Urea nitrogen/Creatinine [Mass ratio] 14.3 mg/mg 10-20 [facility] Work Phone: No Panel Informationon 10-26 Estimated GFR (MDRD) Amer 61 mL/min >60 [facility] Work Phone: Comment on above: GFR Calc Estimated GFR (MDRD) Non-Af Amer 51 mL/min >60 [facility] Work Phone: Comment on above: Non- GFR Calc Free Triiodothyronine (T3) pg/dL 3.2 pg/mL 2.18-3.98 [facility] Work Phone: Miscellaneous Test See comment [facility] Work Phone: Comment on above: TEST RESULT LIMITSMe tanephrines, Frac., Pl. Free Normetanephrine, Pl 123.8 pg/mL 0.0-244.0 Metanephrine, Pl 25.2 pg/mL 0.0-88.0 _ TESTING PERFORMED AT [facility]. ORIGINAL REPORT ON FILE IN LAB CONTAINS ADDITIONAL TEST SITE INFORMATION. Thyroid Stimulating Hormone (TSH) 1.15 uIU/mL 0.358-3.74 [facility] Work Phone: Vitamin D 25-Hydroxy 87.6 ng/mL [facility] Work Phone: Comment on above: Vitamin D 25(OH) Sta tus Range Deficiency <20 ng/mL (50nmol/L) Insufficiency 20 - 30 ng/mL (50 - 75 nmol/L) Sufficiency 30 - 100 ng/mL (75 - 250 nmol/L) Toxicity >100 ng/mL (>250 nmol/L) Serum or plasma albumin derrick urement (mass/volume)on 10-26-2021 Albumin [Mass/Vol] 3.7 g/dL 3.2-5.0 [facility] Work Phone: Serum or plasma albumin/glob ulin mass ratioon 10-26-2021 Albumin/Globulin [Mass ratio] 1.2 {ratio} 0.9-2.4 [facility] Work Phone: Serum or plasma calcium derrick urement (mass/volume)on 10-26-2021 Calcium [Mass/Vol] 9.2 mg/dL 8.5-10.1 [facility] Work Phone: Serum or plasma cholesterol in HDL measurement (mass/volume)on 10-26-2021 Cholesterol in HDL [Mass/Vol] 40 mg/dL >40 [facility] Work Phone: Comment on above: The drugs N-Acetylcy steine and Metamizole may falsely depress this assay. Reference Range HDL <40 mg/dL Low HDL Cholesterol HDL >or= 60 mg/dL High HDL Cholesterol Serum or plasma cholesterol in VLDL measurement (mass/volume)on 10-26-2021 Cholesterol in VLDL [Mass/Vol] 13 mg/dL 5-40 [facility] Work Phone: Serum or plasma creatinine m easurement (mass/volume)on 10-26-2021 Creatinine [Mass/Vol] 1.19 mg/dL 0.55-1.02 [facility] Work Phone: Comment on above: The validity of the calculated GFR & GFRAA in patients over 70 years has not been determined. Clinical correlation is essential. Serum or plasma low density lipoprotein (LDL) cholesterol measurement (mass/volume)on 10-26-2021 Cholesterol in LDL [Mass/Vol] 105 mg/dL 0-130 [facility] Work Phone: Serum or plasma urea nitroge n measurement (mass/volume)on 10-26-2021 Urea nitrogen [Mass/Vol] 17 mg/dL 7-18 [facility] Work Phone: Thin prep Papanicolaou smear with manual screeningon 10-26-2021 Thin prep Papanicolaou smear with manual screening 9 U/L 15-37 [facility] Work Phone: Thin prep Papanicolaou smear with manual screening 4 5-15 [facility] Work Phone: Thin prep Papanicolaou smear with manual screening 5.3 mg/L NO RANGE EST. [facility] Work Phone: Whole blood hemoglobin A1c/t otal hemoglobin ratio (mass fraction)on 10-26-2021 HbA1c (Bld) [Mass fraction] 5.1 % 3.8-5.6 [facility] Work Phone: Comment on above: Normal < 5.7 % Predi abetic 5.7 - 6.4 % Diabetic >or= 6.5 % Please note range changes. Absolute lymphocyte counton 10-25-2021 Lymphocytes Auto (Unsp spec) [#/Vol] 1.26 10*3/uL 0.83-4.51 [facility] Work Phone: Basophil percentageon 2021 Basophils/100 WBC (Bld) 0.7 % 0-1 [facility] Work Phone: Eosinophils/100 WBC (Bld) 0.7 % 0-5 [facility] Work Phone: Neutrophils (Bld) [#/Vol] 4.1 10*3/uL 2.0-7.7 [facility] Work Phone: Neutrophils/100 WBC (Bld) 69.9 % 47-70 [facility] Work Phone: WBC (Bld) [#/Vol] 5.8 10*3/uL 4.4-11.0 [facility] Work Phone: Blood erythrocytes count (nu mber/volume)on 10-25-2021 RBC (Bld) [#/Vol] 3.74 10*6/uL 4.2-5.4 [facility] Work Phone: Blood hemoglobin measurement (mass/volume)on 10-25-2021 Hemoglobin (Bld) [Mass/Vol] 12.8 g/dL 12.0-15.0 [facility] Work Phone: Blood lymphocytes/100 leukoc yteson 10-25-2021 Lymphocytes/100 WBC (Bld) 21.8 % 19-41 [facility] Work Phone: Blood monocytes/100 leukocyt eson 10-25-2021 Monocytes/100 WBC (Bld) 6.4 % 0-10 [facility] Work Phone: Blood platelet mean volumeon 10-25-2021 Platelet mean volume (Bld) [Entitic vol] 9.1 fL 6.2-12.0 [facility] Work Phone: Determination of erythrocyte mean corpuscular volume (MCV)on 10-25-2021 MCV (RBC) [Entitic vol] 101.9 fL 81-99 [facility] Work Phone: Hematocrit Auto (Bld) [Volum e fraction]on 10-25-2021 Hematocrit (Bld) [Volume fraction] 38.1 % 37-47 [facility] Work Phone: Laboratory - Hematology and Cell countson 10-25-2021 Erythrocyte distribution width (RBC) [Entitic vol] 46.9 fL 35.1-43.9 [facility] Work Phone: Erythrocyte distribution width (RBC) [Ratio] 12.5 % 11.6-14.6 [facility] Work Phone: Immature granulocytes/100 WBC (Bld) 0.500 % 0.0-0.9 [facility] Work Phone: Comment on above: IG% - Immature Granu locytes (promyelocytes, myelocytes and metamyelocytes) > 1% indicates that a LEFT SHIFT is Present. MCH (RBC) [Entitic mass] 34.2 pg 27.0-32.0 [facility] Work Phone: Nucleated RBC/100 WBC (Bld) [Ratio] 0 % 0-5 [facility] Work Phone: MCHC Auto (RBC) [Mass/Vol]on 10-25-2021 MCHC (RBC) [Mass/Vol] 33.6 g/dL 32-36 [facility] Work Phone: Platelets bldon 10-25-2021 Platelets (Bld) [#/Vol] 213 10*3/uL 150-450 [facility] Work Phone: Laboratory - Microbiology an d Antimicrobial susceptibilityon 09-13-2021 SARS-CoV-2 (COVID-19) RNA ALVA+probe Ql (Unsp spec) Not detected Not Detect [facility] Work Phone: Comment on above: Normal Reference Ran ge: Not DetectedMethod:(RT-PCR) real-time reverse transcriptase PCRLuGowalla Instrument*The Food and Drug Administration (FDA) has issued an Emergency Use Authorization (EAU) for the SHRAVAN SARS-CoV-2 Assay for the rapid detection of the virus that causes COVID-19. This test has been validated, but the FDAs independent review of this validation is pending.*Negative results do not preclude infection and should not be used as the sole basis for treatment or patient management. Optimum specimen types and timing for peak viral levels during infections caused by SARS-CoV-2 have not been determined. Collection of multiple specimens from the same patient may be necessary to detect the virus. The possibility of a false negative result should be considered if the patient has clinical presentation or has had recent exposure. Absolute lymphocyte counton 09-05-2021 Lymphocytes Auto (Unsp spec) [#/Vol] 1.49 10*3/uL 0.83-4.51 [facility] Work Phone: Basophil percentageon 2021 Basophils/100 WBC (Bld) 0.6 % 0-1 [facility] Work Phone: Eosinophils/100 WBC (Bld) 0.8 % 0-5 [facility] Work Phone: Neutrophils (Bld) [#/Vol] 3.2 10*3/uL 2.0-7.7 [facility] Work Phone: Neutrophils/100 WBC (Bld) 62.8 % 47-70 [facility] Work Phone: WBC (Bld) [#/Vol] 5.1 10*3/uL 4.4-11.0 [facility] Work Phone: Cholesterol [Mass/Vol] 158 mg/dL <200 [facility] Work Phone: Comment on above: <200 mg/dL Desirable 200-240 mg/dL Borderline >240 mg/dL High Risk Triglyceride [Mass/Vol] 83 mg/dL [facility] Work Phone: Comment on above: The drugs N-Acetylcy steine and Metamizole may falsely depress this assay.Serum Triglycerides Reference Interval Normal <150 mg/dL Borderline high 150 - 199 mg/dL High 200 - 499 mg/dL Very High > or = 500 mg/dL Blood erythrocytes count (nu mber/volume)on 09-05-2021 RBC (Bld) [#/Vol] 4.03 10*6/uL 4.2-5.4 [facility] Work Phone: Blood hemoglobin measurement (mass/volume)on 09-05-2021 Hemoglobin (Bld) [Mass/Vol] 13.1 g/dL 12.0-15.0 [facility] Work Phone: Blood lymphocytes/100 leukoc yteson 09-05-2021 Lymphocytes/100 WBC (Bld) 29.0 % 19-41 [facility] Work Phone: Blood monocytes/100 leukocyt eson 09-05-2021 Monocytes/100 WBC (Bld) 6.6 % 0-10 [facility] Work Phone: Blood platelet mean volumeon 09-05-2021 Platelet mean volume (Bld) [Entitic vol] 9.0 fL 6.2-12.0 [facility] Work Phone: Determination of erythrocyte mean corpuscular volume (MCV)on 09-05-2021 MCV (RBC) [Entitic vol] 98.8 fL 81-99 [facility] Work Phone: Hematocrit Auto (Bld) [Volum e fraction]on 09-05-2021 Hematocrit (Bld) [Volume fraction] 39.8 % 37-47 [facility] Work Phone: Laboratory - Hematology and Cell countson 09-05-2021 Erythrocyte distribution width (RBC) [Entitic vol] 48.8 fL 35.1-43.9 [facility] Work Phone: Erythrocyte distribution width (RBC) [Ratio] 13.3 % 11.6-14.6 [facility] Work Phone: Immature granulocytes/100 WBC (Bld) 0.200 % 0.0-0.9 [facility] Work Phone: Comment on above: IG% - Immature Granu locytes (promyelocytes, myelocytes and metamyelocytes) > 1% indicates that a LEFT SHIFT is Present. MCH (RBC) [Entitic mass] 32.5 pg 27.0-32.0 [facility] Work Phone: Nucleated RBC/100 WBC (Bld) [Ratio] 0 % 0-5 [facility] Work Phone: MCHC Auto (RBC) [Mass/Vol]on 09-05-2021 MCHC (RBC) [Mass/Vol] 32.9 g/dL 32-36 [facility] Work Phone: Platelets bldon 09-05-2021 Platelets (Bld) [#/Vol] 190 10*3/uL 150-450 [facility] Work Phone: Serum or plasma cholesterol in HDL measurement (mass/volume)on 09-05-2021 Cholesterol in HDL [Mass/Vol] 43 mg/dL [facility] Work Phone: Comment on above: The drugs N-Acetylcy steine and Metamizole may falsely depress this assay. Reference Range HDL <40 mg/dL Low HDL Cholesterol HDL >or= 60 mg/dL High HDL Cholesterol Serum or plasma cholesterol in VLDL measurement (mass/volume)on 09-05-2021 Cholesterol in VLDL [Mass/Vol] 17 mg/dL 5-40 [facility] Work Phone: [phone] Serum or plasma low density lipoprotein (LDL) cholesterol measurement (mass/volume)on 09-05-2021 Cholesterol in LDL [Mass/Vol] 98 mg/dL 0-130 [facility] Work Phone: Absolute lymphocyte counton 07-27-2021 Lymphocytes Auto (Unsp spec) [#/Vol] 0.85 10*3/uL 0.83-4.51 [facility] Work Phone: Basophil percentageon 2020 Eosinophils/100 WBC (Bld) 1.1 % 0-5 [facility] Work Phone: Neutrophils (Bld) [#/Vol] 3.3 10*3/uL 2.0-7.7 [facility] Work Phone: WBC (Bld) [#/Vol] 4.5 10*3/uL 4.4-11.0 [facility] Work Phone: Blood erythrocytes count (nu mber/volume)on 07-27-2021 RBC (Bld) [#/Vol] 3.82 10*6/uL 4.2-5.4 [facility] Work Phone: Blood hemoglobin measurement (mass/volume)on 07-27-2021 Hemoglobin (Bld) [Mass/Vol] 12.8 g/dL 12.0-15.0 [facility] Work Phone: Blood lymphocytes/100 leukoc yteson 07-27-2021 Lymphocytes/100 WBC (Bld) 18.9 % 19-41 [facility] Work Phone: Blood monocytes/100 leukocyt eson 07-27-2021 Monocytes/100 WBC (Bld) 6.7 % 0-10 [facility] Work Phone: Blood platelet mean volumeon 07-27-2021 Platelet mean volume (Bld) [Entitic vol] 8.9 fL 6.2-12.0 [facility] Work Phone: Determination of erythrocyte mean corpuscular volume (MCV)on 07-27-2021 MCV (RBC) [Entitic vol] 98.4 fL 81-99 [facility] Work Phone: Hematocrit Auto (Bld) [Volum e fraction]on 07-27-2021 Hematocrit (Bld) [Volume fraction] 37.6 % 37-47 [facility] Work Phone: Laboratory - Chemistry and C hemistry - challengeon 07-27-2021 Free T4 [Mass/Vol] 0.79 ng/dL 0.76-1.46 [facility] Work Phone: Cobalamin (Vitamin B12) [Mass/Vol] 327 pg/mL 211-911 [facility] Work Phone: Laboratory - Hematology and Cell countson 07-27-2021 Basophils/100 WBC (Unsp spec) 0.4 % 0-1 [facility] Work Phone: Erythrocyte distribution width (RBC) [Entitic vol] 53.5 fL 35.1-43.9 [facility] Work Phone: Erythrocyte distribution width (RBC) [Ratio] 14.9 % 11.6-14.6 [facility] Work Phone: Immature granulocytes/100 WBC (Bld) 0.400 % 0.0-0.9 [facility] Work Phone: Comment on above: IG% - Immature Granu locytes (promyelocytes, myelocytes and metamyelocytes) > 1% indicates that a LEFT SHIFT is Present. MCH (RBC) [Entitic mass] 33.5 pg 27.0-32.0 [facility] Work Phone: Neutrophils/100 WBC (Bld) 72.5 % 47-70 [facility] Work Phone: Nucleated RBC/100 WBC (Bld) [Ratio] 0 % 0-5 [facility] Work Phone: MCHC Auto (RBC) [Mass/Vol]on 07-27-2021 MCHC (RBC) [Mass/Vol] 34.0 g/dL 32-36 [facility] Work Phone: No Panel Informationon 07-27 Free Triiodothyronine (T3) pg/dL 2.2 pg/mL 2.18-3.98 [facility] Work Phone: Thyroid Stimulating Hormone (TSH) 0.99 uIU/mL 0.358-3.74 [facility] Work Phone: Vitamin D 25-Hydroxy 73.8 ng/mL [facility] Work Phone: Comment on above: Vitamin D 25(OH) Sta tus Range Deficiency <20 ng/mL (50nmol/L) Insufficiency 20 - 30 ng/mL (50 - 75 nmol/L) Sufficiency 30 - 100 ng/mL (75 - 250 nmol/L) Toxicity >100 ng/mL (>250 nmol/L) Platelets bldon 07-27-2021 Platelets (Bld) [#/Vol] 180 10*3/uL 150-450 [facility] Work Phone: .Auto Diffon 05-07-2019 Ammonia (P) [Mass/Vol] 0.70 10 3/mcL Normal 0.15-1.00 [facility] Comment on above: Performed By: #### C BC, ADIFF, ANEU #### [place] [address] #### BMP, GFR #### [address] [address] Basophils (Bld) [#/Vol] 0.10 10 3/mcL Normal 0.00-0.19 [facility] Comment on above: Performed By: #### C BC, ADIFF, ANEU #### [place] [address] #### BMP, GFR #### [address] [address] Basophils/100 WBC (Bld) 1.4 % Normal 0.0-2.5 [facility] Comment on above: Performed By: #### C BC, ADIFF, ANEU #### [place] [address] #### BMP, GFR #### [address] [address] Eosinophils (Bld) [#/Vol] 0.10 10 3/mcL Normal 0.00-0.40 [facility] [place] Comment on above: Performed By: #### C BC, ADIFF, ANEU #### [place] [address] #### BMP, GFR #### [address] [address] Eosinophils/100 WBC (Bld) 1.0 % Normal 0.0-7.0 [facility] [place] Comment on above: Performed By: #### C BC, ADIFF, ANEU #### [place] [address] #### BMP, GFR #### [address] [address] Lymphocytes (Bld) [#/Vol] 3.20 10 3/mcL Normal 0.77-3.85 [facility] Comment on above: Performed By: #### C BC, ADIFF, ANEU #### [address] [address] #### BMP, GFR #### [address] [address] Lymphocytes/100 WBC (Bld) 35.8 % Normal 10.0-50.0 [facility] Comment on above: Performed By: #### C BC, ADIFF, ANEU #### [address] [address] #### BMP, GFR #### [address] [address] Monocytes/100 WBC (Bld) 8.0 % Normal 1.7-13.0 [facility] [place] Comment on above: Performed By: #### C BC, ADIFF, ANEU #### [address] [address] #### BMP, GFR #### [address] [address] Neutrophils/100 WBC (Bld) 53.8 % Normal 37.0-80.0 [facility] [place] Comment on above: Performed By: #### C BC, ADIFF, ANEU #### [address] [address] #### BMP, GFR #### [address] [address] .GFRon 05-07-2019 GFR 65 ml/min/1.73sqm Normal [facility] [place] Comment on above: Result Comment: GFR Population mean for , Non- Americans Ages 20-29 = 116 mL/min/1.73 sq.m. Ages 30-39 = 107 mL/min/1.73 sq.m. Ages 40-49 = 99 mL/min/1.73 sq.m. Ages 50-59 = 93 mL/min/1.73 sq.m. Ages 60-69 = 85 mL/min/1.73 sq.m. Ages 70+ = 75 mL/min/1.73 sq.m. Chronic Kidney Disease: Less than 60 mL/min/1.73 square meters End Stage Renal Disease: Less than 15 mL/min/1.73 square meters Performed By: #### C BC, ADIFF, ANEU #### [address] [address] #### TSH, CMP, GFR, VIDH #### [address] [address] GFR Non- 53 ml/min/1.73sqm Normal [facility] [place] Comment on above: Result Comment: GFR Population mean for , Non- Americans Ages 20-29 = 116 mL/min/1.73 sq.m. Ages 30-39 = 107 mL/min/1.73 sq.m. Ages 40-49 = 99 mL/min/1.73 sq.m. Ages 50-59 = 93 mL/min/1.73 sq.m. Ages 60-69 = 85 mL/min/1.73 sq.m. Ages 70+ = 75 mL/min/1.73 sq.m. Chronic Kidney Disease: Less than 60 mL/min/1.73 square meters End Stage Renal Disease: Less than 15 mL/min/1.73 square meters Performed By: #### C BC, ADIFF, ANEU #### [address] [address] #### TSH, CMP, GFR, VIDH #### [address] [address] .NEUABSon 05-07-2019 Neutrophils (Bld) [#/Vol] 4.70 10 3/mcL Normal 2.85-6.16 [facility] [place] Comment on above: Performed By: #### C BC, ADIFF, ANEU #### [address] [address] #### BMP, GFR #### [address] [address] .Urinalysis Microscopic (AO) on 05-07-2019 RBC (U) [#/Vol] 0-5 None Seen [facility] [place] Comment on above: Performed By: #### C BC, ADIFF, ANEU #### [place] [address] #### TSH, CMP, GFR, VIDH #### [address] [address] UA Squam Epithelial 0-5 None Seen [facility] ([place]) Comment on above: Performed By: #### C BC, ADIFF, ANEU #### [place] [address] #### TSH, CMP, GFR, VIDH #### [place] [address] UA WBC 0-5 None Seen [facility] [place] Comment on above: Performed By: #### C BC, ADIFF, ANEU #### [place] [address] #### TSH, CMP, GFR, VIDH #### [place] [address] BMPon 05-07-2019 Calcium [Mass/Vol] 9.6 mg/dL Normal 8.4-10.2 [facility] ([place]) Comment on above: Performed By: #### C BC, ADIFF, ANEU #### [place] [address] #### TSH, CMP, GFR, VIDH #### [place] [address] Chloride [Moles/Vol] 103 mmol/L Normal 98-107 [facility] ([place]) Comment on above: Performed By: #### C BC, ADIFF, ANEU #### [place] [address] #### TSH, CMP, GFR, VIDH #### [place] [address] CO2 [Moles/Vol] 29 mmol/L Normal 22-29 [facility] [place] Comment on above: Performed By: #### C BC, ADIFF, ANEU #### [address] [address] #### TSH, CMP, GFR, VIDH #### [address] [address] Creatinine [Mass/Vol] 1.09 mg/dL High 0.55-1.02 [facility] ([place]) Comment on above: Performed By: #### C BC, ADIFF, ANEU #### [place] [address] #### TSH, CMP, GFR, VIDH #### [address] [address] Electrolyte Balance 11.0 mEq/L Normal [facility] ([place] Comment on above: Performed By: #### C BC, ADIFF, ANEU #### [place] [address] #### TSH, CMP, GFR, VIDH #### [address] [address] Glucose [Mass/Vol] 110 mg/dL High 70-105 [facility] ([place] Comment on above: Performed By: #### C BC, ADIFF, ANEU #### [place] [address] #### TSH, CMP, GFR, VIDH #### [address] [address] Potassium [Moles/Vol] 3.9 mmol/L Normal 3.5-5.1 [facility] ([place]) Comment on above: Performed By: #### C BC, ADIFF, ANEU #### [address] [address] #### TSH, CMP, GFR, VIDH #### [address] [address] Sodium [Moles/Vol] 143 mmol/L Normal 136-145 [facility] ([place] Comment on above: Performed By: #### C BC, ADIFF, ANEU #### [place] [address] #### TSH, CMP, GFR, VIDH #### [address] [address] Urea nitrogen [Mass/Vol] 11 mg/dL Normal 7-18 [facility] [place] Comment on above: Performed By: #### C BC, ADIFF, ANEU #### [address] [address] #### TSH, CMP, GFR, VIDH #### [address] [address] Urea nitrogen/Creatinine [Mass ratio] 10 ratio Normal 7-27 [facility] [place] Comment on above: Performed By: #### C BC, ADIFF, ANEU #### [address] [address] #### TSH, CMP, GFR, VIDH #### [address] [address] CBCon 05-07-2019 Erythrocyte distribution width (RBC) [Ratio] 13.1 % Normal 11.5-14.5 [facility] [place] Comment on above: Performed By: #### C BC, ADIFF, ANEU #### [address] [address] #### BMP, GFR #### [address] [address] Hematocrit (Bld) [Volume fraction] 42.8 % Normal 37.0-47.0 [facility] [place] Comment on above: Performed By: #### C BC, ADIFF, ANEU #### [address] [address] #### BMP, GFR #### [address] [address] Hemoglobin (Bld) [Mass/Vol] 14.6 G/dL Normal 12.0-16.0 [facility] [place] Comment on above: Performed By: #### C BC, ADIFF, ANEU #### [place] [address] #### BMP, GFR #### [address] [address] MCH (RBC) [Entitic mass] 32.4 pg High 27.0-31.2 [facility] [place] Comment on above: Performed By: #### C AMADA CALVIN, ANEU #### [address] [address] #### BMP, GFR #### [address] [address] MCHC (RBC) [Mass/Vol] 34.0 G/dL Normal 33.0-37.0 [facility] ([place]) Comment on above: Performed By: #### C AMADA CALVIN, ANEU #### [place] [address] #### BMP, GFR #### [address] [address] MCV (RBC) [Entitic vol] 95.1 fL High 80.0-94.0 [facility] [place] Comment on above: Performed By: #### C AMADA CALVIN, ANEU #### [place] [address] #### BMP, GFR #### [address] [address] Platelet mean volume (Bld) [Entitic vol] 7.2 fL Low 7.4-10.4 [facility] [place] Comment on above: Performed By: #### C AMADA CALVIN, ANEU #### [place] [address] #### BMP, GFR #### [address] [address] Platelets (Bld) [#/Vol] 297 10 3/mcL Normal 130-400 [facility] [place] Comment on above: Performed By: #### C AMADA CALVIN, ANEU #### [place] [address] #### BMP, GFR #### [place] [id number] RBC (Bld) [#/Vol] 4.50 10 6/mcL Normal 4.20-5.40 [facility] ([place] Comment on above: Performed By: #### C BC, ADIFF, ANEU #### [place] [address] [place], [place] [address] #### BMP, GFR #### [address] [address] WBC (Bld) [#/Vol] 8.80 10 3/mcL Normal 4.60-10.80 [facility] ([place]) Comment on above: Performed By: #### C BC, ADIFF, ANEU #### [place] [address] [place], [place] [address] #### BMP, GFR #### [address] [address] [address] ABD/PELVIS W/ IV CONTRAST ONLYon 05-07-2019 CT ABD/PELVIS W/ IV CONTRAST ONLY ORIGINAL CT ABD/PELVIS W/ IV CONTRAST ONLY CLINICAL STATEMENT: pain COMPARISON: None TECHNIQUE: Axial images were obtained from the lung bases through the pubic symphysis after the administration of IV contrast. Coronal and sagittal reformatted images were generated from the axial dataset. This exam was performed according to our departmental dose optimization program, and includes the following measures where applicable: automated exposure control, adjustment of the mAs and/or kVp according to patient size and/or exam, and an iterative reconstruction algorithm. FINDINGS: Limited images of the lower thorax are noncontributory. The liver, spleen, kidneys, and pancreas are within normal limits. There is an incidental 3.3 cm x 1.9 cm indeterminate nodule in the LEFT adrenal gland. The RIGHT adrenal gland demonstrates mild thickening. The patient is status post cholecystectomy. The large and small bowel are normal in course and caliber. The appendix is normal. No free intraperitoneal fluid or air is identified. There is no lymphadenopathy. The aorta is normal in caliber. The bladder is well distended. There is a tiny amount of gas seen within the bladder, which may be iatrogenic from recent instrumentation. The patient is status post hysterectomy. No adnexal mass. There is no visible fracture or aggressive osseous lesion. Degenerative changes are seen in the spine. IMPRESSION: 1. Small amount of gas within the urinary bladder. This is probably iatrogenic due to recent instrumentation. Please correlate with history and/or urinalysis to exclude gas patient organisms. Otherwise, no acute findings in the abdomen or pelvis. 2. Indeterminate LEFT adrenal gland nodule measuring 3.3 cm a 1.[address] is recommended. Interpreted By: Cory So MD Preliminary Report By: Cory So MD Electronically Signed By: Cory So MD Dictated Date: 05/07/2019 11:06:26 AM Prelim Date: 05/07/2019 11:06:26 AM Sign Date: 05/07/2019 11:12:11 AM Normal [facility] UAon 05-07-2019 Color (U) Yellow Normal [facility] Comment on above: Performed By: #### C BCTANVIIFF, ANEU #### [place] [address] #### TSH, CMP, GFR, VIDH #### [place] [address] Glucose (U) [Mass/Vol] Negative Normal Negative [facility] [place] Comment on above: Performed By: #### C BC, ADIFF, ANEU #### [place] [address] #### TSH, CMP, GFR, VIDH #### [place] [address] Ketones Ql (U) Negative Normal Negative [facility] [place] Comment on above: Performed By: #### C BC ADIFF, ANEU #### [place] [address] #### TSH, CMP, GFR, VIDH #### [place] [address] UA Appear Clear Normal Clear [facility] [place] Comment on above: Performed By: #### C BC, ADIFF, ANEU #### [place] [address] #### TSH, CMP, GFR, VIDH #### [place] [id number] UA Blood Trace Negative [facility] [place] Comment on above: Performed By: #### C BC, ADIFF, ANEU #### [place] [address] #### TSH, CMP, GFR, VIDH #### [place] [address] UA Leuk Est Trace Negative [facility] [place] Comment on above: Performed By: #### C BC, ADIFF, ANEU #### [place] [address] #### TSH, CMP, GFR, VIDH #### [place] [address] UA Nitrite Negative Normal Negative [facility] [place] Comment on above: Performed By: #### C BC, ADIFF, ANEU #### [place] [address] #### TSH, CMP, GFR, VIDH #### [place] [address] UA pH 5.5 Normal 5.0 - 8.0 [facility] [place] Comment on above: Performed By: #### C BC, ADIFF, ANEU #### [place] [address] #### TSH, CMP, GFR, VIDH #### [place] [address] UA Protein Negative Normal Negative [facility] [place] Comment on above: Performed By: #### C BC, ADIFF, ANEU #### [place] [address] #### TSH, CMP, GFR, VIDH #### [place] [address] UA Spec Grav <=1.005 1.015-1.025 [facility] [place] Comment on above: Performed By: #### C BC, ADIFF, ANEU #### [place] [address] #### TSH, CMP, GFR, VIDH #### [place] [address] UA Specimen Type Clean Catch Normal [facility] ([place] Comment on above: Performed By: #### C BC, ADIFF, ANEU #### [address] [address] #### TSH, CMP, GFR, VIDH #### [address] [address] UA Urobilinogen 0.2 E.U./dL Normal 0.2-1.0 [facility] [place] Comment on above: Performed By: #### C BC, ADIFF, ANEU #### [address] [address] #### TSH, CMP, GFR, VIDH #### [place] [address] Urobilinogen Qn (U) Negative Normal Negative [facility] ([place] Comment on above: Performed By: #### C BC, ADIFF, ANEU #### [place] [address] #### TSH, CMP, GFR, VIDH #### [place] [address] Op Noteon 05-04-2019 Op Note PATIENT: AKASH AVILA ADMISSION DATE: 05/04/2019 SURGERY DATE: 05/04/2019 DATE OF : 1970 AGE: 48 ADMITTING PHYSICIAN: Godwin Huddleston MD ATTENDING PHYSICIAN: Godwin Huddleston MD DICTATING PHYSICIAN: Godwin Huddleston MD OPERATIVE RECORD Procedure: RECTOCELE REPAIR AND BILATERAL SACROSPINOUS LIGAMENT FIXATION. Preoperative Diagnosis: Symptomatic pelvic organ prolapse. Postoperative Diagnosis: Symptomatic pelvic organ prolapse. Anesthesia: General endotracheal. Pallet Stone Inserter: None. Complications: None. Estimated Blood Loss: 50 mL. Indications: The patient is a 48-year-old with symptomatic rectocele, presents for the above-mentioned procedure understanding the risks, benefits, and alternatives to include risk of bleeding, infection, injury to internal organs, including possible injury to bowel, bladder, and major vasculature. In addition, she understands the inherent risks of recurrent pelvic organ prolapse as well as de hue incontinence, de hue detrusor overactivity, postoperative voiding dysfunction, sexual dysfunction, vaginal scarring, and pelvic pain. She understands all the above and elects to proceed. Description of Procedure: The patient was taken to the operating room where she underwent general endotracheal anesthesia without difficulty. She was then placed in a low dorsal lithotomy position using Yellofin stirrups. Prepped draped in usual surgical fashion. Wilde catheter was placed to continuous bladder drainage. A finger was placed inside the rectum. Posterior vaginal mucosa was injected with solution of 1% lidocaine with epinephrine. A allison-shaped portion of posterior vaginal mucosa and the perineal skin was excised and discarded. The anterior wall of the rectum was then mobilized off the posterior vaginal mucosa to the apex of the vagina. Multiple attempts were made to enter enterocele sac which were unsuccessful. Therefore, we developed the pararectal spaces bilaterally identifying the ischial spines as well as the sacrospinous ligaments. The Capio device was used to introduce a number of synthetic absorbable suture into each sacrospinous ligament approximately 1-1/2 fingerbreadths medial to the ischial spine bilaterally. Fibromuscular layer of the vagina was then plicated in the midline using interrupted sutures of 2-0 Vicryl resulting in good reduction of the rectocele. The sacrospinous ligament fixation sutures were then brought the cuff bilaterally and the redundant posterior vaginal mucosa was then trimmed and discarded. The mucosa was then closed using interrupted [id number] sutures of 2-0 Vicryl followed by a perineal subcuticular suture of 2-0 Vicryl. The sacrospinous ligament fixation sutures then tied down with excellent elevation of vault with good length and caliber. Cystoscopy confirmed that there was bilateral spill of urine and no evidence of injury to the bladder during the procedure. The patient tolerated the procedure well and was transported to recovery in stable condition. Sponge, lap, and needle counts were correct x2 according to nursing. Diskriter Job ID: [id number] Godwin Huddleston MD DOD:05/04/2019 09:58 A CMR/dsk DOT:05/04/2019 10:30 A Job Number: [id number] Document Number: [id number] cc: Godwin Huddleston MD [address] Basic Metabolic Panelon 09-0 5-2019 Anion gap [Moles/Vol] 9 Normal [facility] Comment on above: Performed By: #### B MP3, HEMOG #### [facility] [address], [place] Calcium [Mass/Vol] 9.8 mg/dL Normal 8.4-10.4 [facility] Comment on above: Performed By: #### B MP3, HEMOG #### [facility] [address], [place] CO2 [Moles/Vol] 29 mmol/L Normal 22-30 [facility] Comment on above: Performed By: #### B MP3, HEMOG #### [facility] [address], [place] Glucose [Mass/Vol] 112 mg/dL High 70-100 [facility] Comment on above: Performed By: #### B MP3, HEMOG #### [facility] [address], [place] Urea nitrogen [Mass/Vol] 11 mg/dL Normal 7-20 [facility] Comment on above: Performed By: #### B MP3, HEMOG #### [facility] [address], [place] Creatinine [Mass/Vol] 1.08 mg/dL Normal 0.52-1.25 [facility] Comment on above: Performed By: #### B MP3, HEMOG #### [facility] [address], [place] GFR/1.73 sq M predicted among blacks MDRD (S/P/Bld) [Vol rate/Area] mL/min/{1.73_m2} Normal >60 [facility] Comment on above: Performed By: #### B MP3, HEMOG #### [facility] [address], [place] GFR/1.73 sq M predicted among non-blacks MDRD (S/P/Bld) [Vol rate/Area] 53.8 mL/min/{1.73_m2} Normal >60 [facility] Comment on above: Result Comment: Sour ce- MDRD equation with creatinine calibration to IDMS(NKDEP) eGFR not recommended for drug dose adjustment Performed By: #### B MP3, HEMOG #### [facility] [address], [place] Potassium [Moles/Vol] 3.7 mmol/L Normal 3.5-5.1 [facility] Comment on above: Performed By: #### B MP3, HEMOG #### [facility] [address], [place] Sodium [Moles/Vol] 142 mmol/L Normal 135-145 [facility] Comment on above: Performed By: #### B MP3, HEMOG #### [facility] [address], [place] Chloride [Moles/Vol] 104 mmol/L Normal 98-107 [facility] Comment on above: Performed By: #### B MP3, HEMOG #### [facility] [address], [place] Anion gap [Moles/Vol] 9 mmol/L [place], [place] Calcium [Mass/Vol] 9.8 mg/dL 8.4 - 10. 4 mg/dL [place], [place] Chloride [Moles/Vol] 104 mmol/L 98 - 10 7 mmol/L [place] CO2 [Moles/Vol] 29 mmol/L 22 - 30 mmol/L [place] Creatinine [Mass/Vol] 1.08 mg/dL 0.52 - 1.25 mg/dL [place] EGFR IF NonAfrican [place] 53.8 mL/min >60 [place] Comment on above: Source- MDRD equatio n with creatinine calibration to IDMS(NKDEP) eGFR not recommended for drug dose adjustment GFR/1.73 sq M predicted among blacks MDRD (S/P/Bld) [Vol rate/Area] mL/min/{1.73_m2} >60 mL/min [place], [place] Glucose [Mass/Vol] 112 mg/dL High 70 - 100 mg/dL [place] Interpretation and review of laboratory results Abnormal [place] Potassium [Moles/Vol] 3.7 mmol/L 3.5 - 5.1 mmol/L [place] Sodium [Moles/Vol] 142 mmol/L 135 - 145 mmol/L [place] Urea nitrogen [Mass/Vol] 11 mg/dL 7 - 20 mg/dL [place] Test Performed by [facility], [address] [place] [address] [place], [place] CBCon 04-29-2019 Erythrocyte distribution width (RBC) [Ratio] 13.5 % 11.5 - 14.5 % [place] Hematocrit (Bld) [Volume fraction] 41.7 % 35 - 47 % [place] Hemoglobin (Bld) [Mass/Vol] 14.4 g/dL 11.7 - 16 g/dL [place] Interpretation and review of laboratory results Abnormal [place] MCH (RBC) [Entitic mass] 32.6 pg 26 - 34 pg [place] MCHC (RBC) [Mass/Vol] 34.4 % 32 - 36 % [place] MCV (RBC) [Entitic vol] 94.6 fL 79 - 98 fL [place] Platelet mean volume (Bld) [Entitic vol] 7.2 fL Low 7.4 - 10.4 fL [place] Platelets (Bld) [#/Vol] 293 10*3/uL 140 - 440 10*3/uL [place] RBC (Bld) [#/Vol] 4.41 10*6/uL 3.8 - 5.2 10*6/uL [place] WBC (Bld) [#/Vol] 8.8 10*3/uL 3.6 - 10.7 10*3/uL [place] Test Performed by [facility], [address] [place] [address] [place] Hemogramon 04-29-2019 Erythrocyte distribution width (RBC) [Ratio] 13.5 % Normal 11.5-14.5 [facility] Comment on above: Performed By: #### B MP3, HEMOG #### [place] [address] [address], [place] Hematocrit (Bld) [Volume fraction] 41.7 % Normal 35.0-47.0 [facility] Comment on above: Performed By: #### B MP3, HEMOG #### [facility] [address], [place] Hemoglobin (Bld) [Mass/Vol] 14.4 g/dL Normal 11.7-16.0 [facility] Comment on above: Performed By: #### B MP3, HEMOG #### [place] [address] [address] [place], [place] MCH (RBC) [Entitic mass] 32.6 pg Normal 26.0-34.0 [facility] Comment on above: Performed By: #### B MP3, HEMOG #### [place] [address] [address], [place] MCHC (RBC) [Mass/Vol] 34.4 % Normal 32.0-36.0 [facility] Comment on above: Performed By: #### B MP3, HEMOG #### [place] [address] [address], [place] MCV (RBC) [Entitic vol] 94.6 fL Normal 79.0-98.0 [facility] Comment on above: Performed By: #### B MP3, HEMOG #### [place] [address] [address], [place] Platelet mean volume (Bld) [Entitic vol] 7.2 fL Low 7.4-10.4 [facility] Comment on above: Performed By: #### B MP3, HEMOG #### [place] [address] [address] [place], [place] Platelets (Bld) [#/Vol] 293 10*3/uL Normal 140-440 [facility] Comment on above: Performed By: #### B MP3, HEMOG #### [place] [address] [address], [place] RBC (Bld) [#/Vol] 4.41 10*6/uL Normal 3.80-5.20 [facility] Comment on above: Performed By: #### B MP3, HEMOG #### [facility] [address] [place] [address] WBC (Bld) [#/Vol] 8.8 10*3/uL Normal 3.6-10.7 [facility] Comment on above: Performed By: #### B MP3, HEMOG #### [facility] [address] [place] [address] VIDHon 08-12-2018 Vit. D 25-Hydroxy 35 ng/mL [facility] ([place] Comment on above: Result Comment: Inte rpretive Values Based on Total 25(OH)D: Severe Deficiency <20 ng/mL Mild to Moderate Deficiency 20-30 ng/mL Optimum Levels 30-100 ng/mL Toxicity Possible >100 ng/mL Performed By: #### C AMADA CALVIN ANEU #### [place] [address] #### TSH, CMP, GFR, VIDH #### [place] [address] .Auto Diffon 08-11-2018 Ammonia (P) [Mass/Vol] 0.70 10 3/mcL Normal 0.15-1.00 [facility] ([place]) Comment on above: Performed By: #### AMADA PALACIOS ANEU #### [place] [address] #### TSH, CMP, GFR, VIDH #### [place] [address] Basophils (Bld) [#/Vol] 0.10 10 3/mcL Normal 0.00-0.19 [facility] ([place]) Comment on above: Performed By: #### AMADA PALACIOS ANEU #### [place] [address] #### TSH, CMP, GFR, VIDH #### [address] [address] Basophils/100 WBC (Bld) 0.7 % Normal 0.0-2.5 [facility] ([place]) Comment on above: Performed By: #### C BC, ADIFF, ANEU #### [address] [address] #### TSH, CMP, GFR, VIDH #### [address] [address] Eosinophils (Bld) [#/Vol] 0.10 10 3/mcL Normal 0.00-0.40 [facility] ([place]) Comment on above: Performed By: #### C BC, ADIFF, ANEU #### [place] [address] #### TSH, CMP, GFR, VIDH #### [address] [address] Eosinophils/100 WBC (Bld) 1.3 % Normal 0.0-7.0 [facility] ([place] Comment on above: Performed By: #### C BC, ADIFF, ANEU #### [place] [address] #### TSH, CMP, GFR, VIDH #### [address] [address] Lymphocytes (Bld) [#/Vol] 3.30 10 3/mcL Normal 0.77-3.85 [facility] ([place]) Comment on above: Performed By: #### C BC, ADIFF, ANEU #### [place] [address] #### TSH, CMP, GFR, VIDH #### [address] [address] Lymphocytes/100 WBC (Bld) 31.8 % Normal 10.0-50.0 [facility] Comment on above: Performed By: #### C BC, ADIFF, ANEU #### [place] [address] #### TSH, CMP, GFR, VIDH #### [address] [address] Monocytes/100 WBC (Bld) 6.7 % Normal 1.7-13.0 [facility] Comment on above: Performed By: #### C BC, ADIFF, ANEU #### [address] [address] #### TSH, CMP, GFR, VIDH #### [address] [address] Neutrophils/100 WBC (Bld) 59.5 % Normal 37.0-80.0 [facility] [place] Comment on above: Performed By: #### C BC, ADIFF, ANEU #### [address] [address] #### TSH, CMP, GFR, VIDH #### [address] [address] .GFRon 08-11-2018 GFR Non- 54 ml/min/1.73sqm Normal [facility] ([place]) Comment on above: Result Comment: GFR Population mean for , Non- Americans Ages 20-29 = 116 mL/min/1.73 sq.m. Ages 30-39 = 107 mL/min/1.73 sq.m. Ages 40-49 = 99 mL/min/1.73 sq.m. Ages 50-59 = 93 mL/min/1.73 sq.m. Ages 60-69 = 85 mL/min/1.73 sq.m. Ages 70+ = 75 mL/min/1.73 sq.m. Chronic Kidney Disease: Less than 60 mL/min/1.73 square meters End Stage Renal Disease: Less than 15 mL/min/1.73 square meters Performed By: #### C BC, ADIFF, ANEU #### [address] [address] #### TSH, CMP, GFR, VIDH #### [address] [address] GFR 66 ml/min/1.73sqm Normal [facility] ([place] Comment on above: Result Comment: GFR Population mean for , Non- Americans Ages 20-29 = 116 mL/min/1.73 sq.m. Ages 30-39 = 107 mL/min/1.73 sq.m. Ages 40-49 = 99 mL/min/1.73 sq.m. Ages 50-59 = 93 mL/min/1.73 sq.m. Ages 60-69 = 85 mL/min/1.73 sq.m. Ages 70+ = 75 mL/min/1.73 sq.m. Chronic Kidney Disease: Less than 60 mL/min/1.73 square meters End Stage Renal Disease: Less than 15 mL/min/1.73 square meters Performed By: #### C AMADA CALVIN, ANEU #### [place] [address] #### TSH, CMP, GFR, VIDH #### [address] [address] .NEUABSon 08-11-2018 Neutrophils (Bld) [#/Vol] 6.10 10 3/mcL Normal 2.85-6.16 [facility] ([place] Comment on above: Performed By: #### AMADA PALACIOS ANEU #### [place] [address] #### TSH, CMP, GFR, VIDH #### [place] [address] CBCon 08-11-2018 Erythrocyte distribution width (RBC) [Ratio] 13.5 % Normal 11.5-14.5 [facility] ([place]) Comment on above: Performed By: #### AMADA PALACIOS ANEU #### [place] [address] #### TSH, CMP, GFR, VIDH #### [place] [address] Hematocrit (Bld) [Volume fraction] 42.6 % Normal 37.0-47.0 [facility] ([place] Comment on above: Performed By: #### AMADA PALACIOS, ANEU #### [place] [address] #### TSH, CMP, GFR, VIDH #### [place] [address] Hemoglobin (Bld) [Mass/Vol] 14.6 G/dL Normal 12.0-16.0 [facility] ([place] Comment on above: Performed By: #### C TANVI CALVINIFF, ANEU #### [place] [address] #### TSH, CMP, GFR, VIDH #### [address] [address] MCH (RBC) [Entitic mass] 32.2 pg High 27.0-31.2 [facility] ([place] Comment on above: Performed By: #### C AMADA CALVIN, ANEU #### [place] [address] #### TSH, CMP, GFR, VIDH #### [place] [address] MCHC (RBC) [Mass/Vol] 34.2 G/dL Normal 33.0-37.0 [facility] ([place]) Comment on above: Performed By: #### C AMADA CALVIN, ANEU #### [place] [address] #### TSH, CMP, GFR, VIDH #### [place] [address] MCV (RBC) [Entitic vol] 94.3 fL High 80.0-94.0 [facility] ([place] Comment on above: Performed By: #### C AMADA CALVIN, ANEU #### [place] [address] #### TSH, CMP, GFR, VIDH #### [place] [address] Platelet mean volume (Bld) [Entitic vol] 7.6 fL Normal 7.4-10.4 [facility] ([place]) Comment on above: Performed By: #### C AMADA CALVIN, ANEU #### [place] [address] #### TSH, CMP, GFR, VIDH #### [place] [address] Platelets (Bld) [#/Vol] 323 10 3/mcL Normal 130-400 [facility] ([place] Comment on above: Performed By: #### C BC, ADIFF, ANEU #### [place] [address] #### TSH, CMP, GFR, VIDH #### [address] [address] RBC (Bld) [#/Vol] 4.52 10 6/mcL Normal 4.20-5.40 [facility] ([place]) Comment on above: Performed By: #### C BC, ADIFF, ANEU #### [place] [address] #### TSH, CMP, GFR, VIDH #### [address] [address] WBC (Bld) [#/Vol] 10.20 10 3/mcL Normal 4.60-10.80 [facility] ([place]) Comment on above: Performed By: #### C AMADA CALVIN, ANEU #### [place] [address] #### TSH, CMP, GFR, VIDH #### [address] [address] CMPon 08-11-2018 Albumin [Mass/Vol] 4.0 G/dL Normal 3.5-5.0 [facility] ([place]) Comment on above: Performed By: #### C TANVI CALVINIFF, ANEU #### [place] [address] #### TSH, CMP, GFR, VIDH #### [place] [address] Albumin/Globulin [Mass ratio] 1.3 {ratio} Normal 1.1-2.5 [facility] ([place]) Comment on above: Performed By: #### C NIKUNJ, AMADA, ANEU #### [place] [address] #### TSH, CMP, GFR, VIDH #### [place] [id number] ALP [Catalytic activity/Vol] 87 U/L Normal 40-135 [facility] ([place] Comment on above: Performed By: #### C BC, ADIFF, ANEU #### [address] [address] #### TSH, CMP, GFR, VIDH #### [address] [address] ALT [Catalytic activity/Vol] 17 U/L Normal 10-35 [facility] ([place] Comment on above: Performed By: #### C BC, ADIFF, ANEU #### [address] [address] #### TSH, CMP, GFR, VIDH #### [address] [address] AST [Catalytic activity/Vol] 12 U/L Normal 10-40 [facility] ([place]) Comment on above: Performed By: #### C BC, ADIFF, ANEU #### [place] [address] #### TSH, CMP, GFR, VIDH #### [address] [address] Bili Total 0.2 mg/dL Normal 0.2-1.0 [facility] ([place]) Comment on above: Performed By: #### C BC, ADIFF, ANEU #### [place] [address] #### TSH, CMP, GFR, VIDH #### [address] [address] Calcium [Mass/Vol] 9.3 mg/dL Normal 8.4-10.2 [facility] ([place]) Comment on above: Performed By: #### C BC, ADIFF, ANEU #### [place] [address] #### TSH, CMP, GFR, VIDH #### [address] [address] Chloride [Moles/Vol] 105 mmol/L Normal 98-107 [facility] ([place]) Comment on above: Performed By: #### C BC, ADIFF, ANEU #### [address] [address] #### TSH, CMP, GFR, VIDH #### [address] [address] CO2 [Moles/Vol] 31 mmol/L High 22-29 [facility] ([place] Comment on above: Performed By: #### C BC, ADIFF, ANEU #### [address] [address] #### TSH, CMP, GFR, VIDH #### [address] [address] Creatinine [Mass/Vol] 1.07 mg/dL High 0.55-1.02 [facility] ([place]) Comment on above: Performed By: #### C BC, ADIFF, ANEU #### [place] [address] #### TSH, CMP, GFR, VIDH #### [address] [address] Electrolyte Balance 6.0 mEq/L Normal [facility] ([place]) Comment on above: Performed By: #### C BC, ADIFF, ANEU #### [place] [address] #### TSH, CMP, GFR, VIDH #### [address] [address] Globulin (S) [Mass/Vol] 3.0 G/dL Normal [facility] ([place] Comment on above: Performed By: #### C BC, ADIFF, ANEU #### [address] [address] #### TSH, CMP, GFR, VIDH #### [address] [address] Glucose [Mass/Vol] 83 mg/dL Normal 70-105 [facility] ([place]) Comment on above: Performed By: #### C BC, ADIFF, ANEU #### [place] [address] #### TSH, CMP, GFR, VIDH #### [address] [address] Potassium [Moles/Vol] 4.1 mmol/L Normal 3.5-5.1 [facility] ([place]) Comment on above: Performed By: #### C BC, ADIFF, ANEU #### [address] [address] #### TSH, CMP, GFR, VIDH #### [address] [address] Protein [Mass/Vol] 7.0 G/dL Normal 6.4-8.2 [facility] ([place]) Comment on above: Performed By: #### C BC, ADIFF, ANEU #### [address] [address] #### TSH, CMP, GFR, VIDH #### [address] [address] Sodium [Moles/Vol] 142 mmol/L Normal 136-145 [facility] ([place]) Comment on above: Performed By: #### C BC, ADIFF, ANEU #### [address] [address] #### TSH, CMP, GFR, VIDH #### [address] [address] Urea nitrogen [Mass/Vol] 10 mg/dL Normal - [facility] ([place] Comment on above: Performed By: #### C BC, ADIFF, ANEU #### [address] [address] #### TSH, CMP, GFR, VIDH #### [address] [address] Urea nitrogen/Creatinine [Mass ratio] 9 ratio Normal 7- [facility] ([place]) Comment on above: Performed By: #### C BC, ADIFF, ANEU #### [address] [address] #### TSH, CMP, GFR, VIDH #### [address] [address] TSHon 08-11-2018 TSH Qn 0.82 mcIU/mL Normal 0.36-3.74 [facility] ([place]) Comment on above: Performed By: #### C BC, OC BYARRA #### [facility] [address] [place], [place] [address] #### TSH, CMP, GFR, VIDH #### [facility] [address] [place] [address] Vital Signs Date Time Vital Sign Value Performing Clinician Alberta pablo 02-18-2025 08:40-0400 Diastolic blood pressure 77 mm[Hg] Luisito Donovan MD Work Phone: [employer] PostedIn 02-18-2025 08:40-0400 Heart rate 75 /min Luisito Donovan MD Work Phone: [employer] PostedIn 02-18-2025 08:40-0400 Systolic blood pressure 134 mm[Hg] Luisito Donovan MD Work Phone: [employer]In 11-19-2024 08:16-0400 Body height 160 cm Luisito Donovan MD Work Phone: [employer] PostedIn 11-19-2024 08:16-0400 Body mass index (BMI) [Ratio] 40.03 kg/m2 Luisito Donovan MD Work Phone: [employer] PostedIn 11-19-2024 08:16-0400 Body weight 102.51 kg Luisito Donovan MD Work Phone: [employer] PostedIn 11-19-2024 08:16-0400 Diastolic blood pressure 68 mm[Hg] Luisito Donovan MD Work Phone: [employer] 11-19-2024 08:16-0400 Systolic blood pressure 118 mm[Hg] Luisito Donovan MD Work Phone: [employer] 08-20-2024 08:38-0500 Body height 160 cm Luisito Donovan MD Work Phone: [employer] 08-20-2024 08:38-0500 Body mass index (BMI) [Ratio] 40.03 kg/m2 Luisito Donovan MD Work Phone: [facility] 08-20-2024 08:38-0500 Body weight 102.51 kg Luisito Donovan MD Work Phone: [facility] 08-20-2024 08:38-0500 Diastolic blood pressure 76 mm[Hg] Luisito Donovan MD Work Phone: [facility] 08-20-2024 08:38-0500 Heart rate 52 /min Luisito Donovan MD Work Phone: [facility] 08-20-2024 08:38-0500 Systolic blood pressure 144 mm[Hg] Luisito Donovan MD Work Phone: [facility] 05-21-2024 08:20-0400 Body height 160 cm Luisito Donovan MD Work Phone: [facility] 05-21-2024 08:20-0400 Body mass index (BMI) [Ratio] 40.03 kg/m2 Luisito Donovan MD Work Phone: [facility] 05-21-2024 08:20-0400 Body weight 102.51 kg Luisito Donovan MD Work Phone: [facility] 05-21-2024 08:20-0400 Diastolic blood pressure 80 mm[Hg] Luisito Donovan MD Work Phone: [facility] 05-21-2024 08:20-0400 Systolic blood pressure 136 mm[Hg] Luisito Donovan MD Work Phone: [facility] 04-01-2024 07:59-0400 Body height 160 cm Gege Jamison MD Work Phone: [facility] 04-01-2024 07:59-0400 Body mass index (BMI) [Ratio] 40.57 kg/m2 Gege Jamison MD Work Phone: [facility] 04-01-2024 07:59-0400 Body weight 103.87 kg Gege Jamison MD Work Phone: [facility] 04-01-2024 07:59-0400 Diastolic blood pressure 68 mm[Hg] Gege Jamison MD Work Phone: [facility] 04-01-2024 07:59-0400 Systolic blood pressure 110 mm[Hg] Gege Jamison MD Work Phone: [facility] 02-20-2024 07:47-0400 Body temperature 97.7 [degF] Luisito Donovan MD Work Phone: [facility] 02-20-2024 07:47-0400 Diastolic blood pressure 69 mm[Hg] Luisito Donovan MD Work Phone: [facility] 02-20-2024 07:47-0400 Heart rate 53 /min Luisito Donovan MD Work Phone: [facility] 02-20-2024 07:47-0400 Systolic blood pressure 127 mm[Hg] Luisito Donovan MD Work Phone: [facility] 02-11-2024 14:34-0400 Body height 160 cm Lucia Cortes MD Work Phone: [facility] 02-11-2024 14:34-0400 Body mass index (BMI) [Ratio] 40.57 kg/m2 Lucia Cortes MD Work Phone: [facility] 02-11-2024 14:34-0400 Body weight 103.87 kg Lucia Cortes MD Work Phone: [facility] 02-11-2024 14:34-0400 Diastolic blood pressure 80 mm[Hg] Lucia Cortes MD Work Phone: [facility] 02-11-2024 14:34-0400 Heart rate 76 /min Lucia Cortes MD Work Phone: [facility] 02-11-2024 14:34-0400 SaO2% (BldA) [Mass fraction] 97 % Lucia Cortes MD Work Phone: [facility] 02-11-2024 14:34-0400 Systolic blood pressure 121 mm[Hg] Lucia Cortes MD Work Phone: [facility] 11-21-2023 09:12-0400 Body height 160 cm Lucia Cortes MD Work Phone: [facility] 11-21-2023 09:12-0400 Body weight 103.87 kg Lucia Cortes MD Work Phone: [facility] 11-21-2023 09:12-0400 Diastolic blood pressure 64 mm[Hg] Lucia Cortes MD Work Phone: [facility] 11-21-2023 09:12-0400 Heart rate 54 /min Lucia Cortes MD Work Phone: [facility] 11-21-2023 09:12-0400 Systolic blood pressure 130 mm[Hg] Lucia Cortes MD Work Phone: [facility] 11-21-2023 07:29-0400 Body temperature 97.3 [degF] Luisito Donovan MD Work Phone: [facility] 11-21-2023 07:29-0400 Diastolic blood pressure 66 mm[Hg] Luisito Donovan MD Work Phone: [facility] 11-21-2023 07:29-0400 Heart rate 57 /min Luisito Donovan MD Work Phone: [facility] 11-21-2023 07:29-0400 Systolic blood pressure 122 mm[Hg] Luisito Donovan MD Work Phone: [facility] 10-08-2023 10:18-0500 Body height 160 cm Aura Maxwell MD Work Phone: [facility] 10-08-2023 10:18-0500 Body weight 102.8 kg Aura Maxwell MD Work Phone: [facility] 10-08-2023 10:18-0500 Diastolic blood pressure 74 mm[Hg] Aura Maxwell MD Work Phone: [facility] 10-08-2023 10:18-0500 Heart rate 59 /min Aura Maxwell MD Work Phone: [facility] 10-08-2023 10:18-0500 Respiratory rate 16 /min Aura Maxwell MD Work Phone: [facility] 10-08-2023 10:18-0500 SaO2% (BldA) [Mass fraction] 96 % Aura Maxwell MD Work Phone: [facility] 10-08-2023 10:18-0500 Systolic blood pressure 146 mm[Hg] Aura Maxwell MD Work Phone: [facility] 08-21-2023 07:38-0500 Body height 160 cm Maria Erakesh Johnson ASSIGNMENT AGENT - CNC MACHINE OPERATOR Work Phone: [facility] 08-21-2023 07:38-0500 Body mass index (BMI) [Ratio] 40.03 kg/m2 Maria E Elizabeth ASSIGNMENT AGENT - CNC MACHINE OPERATOR Work Phone: [facility] 08-21-2023 07:38-0500 Body temperature 98.1 [degF] Maria E Elizabeth ASSIGNMENT AGENT - CNC MACHINE OPERATOR Work Phone: [facility] PostedIn 08-21-2023 07:38-0500 Body weight 102.51 kg Maria E Manriquesey ASSIGNMENT AGENT - CNC MACHINE OPERATOR Work Phone: [facility] PostedIn 08-21-2023 07:38-0500 Diastolic blood pressure 62 mm[Hg] Maria E Manriquesey ASSIGNMENT AGENT - CNC MACHINE OPERATOR Work Phone: [facility] PostedIn 08-21-2023 07:38-0500 Heart rate 81 /min Maria E Elizabeth ASSIGNMENT AGENT - CNC MACHINE OPERATOR Work Phone: [facility] PostedIn 08-21-2023 07:38-0500 Systolic blood pressure 115 mm[Hg] Maria E Elizabeth ASSIGNMENT AGENT - CNC MACHINE OPERATOR Work Phone: [facility] PostedIn 05-21-2023 08:27-0400 Body temperature 97.59 [degF] Luisito Donovan MD Work Phone: [facility] PostedIn 05-21-2023 08:27-0400 Diastolic blood pressure 73 mm[Hg] Luisito Donovan MD Work Phone: [facility] 05-21-2023 08:27-0400 Heart rate 50 /min Luisito Donovan MD Work Phone: [facility] PostedIn 05-21-2023 08:27-0400 Systolic blood pressure 146 mm[Hg] Luisito Donovan MD Work Phone: [facility] PostedIn 02-18-2023 09:42-0400 Body temperature 97.7 [degF] Luisito Donovan MD Work Phone: [facility] PostedIn 02-18-2023 09:42-0400 Diastolic blood pressure 79 mm[Hg] Luisito Donovan MD Work Phone: [facility] PostedIn 02-18-2023 09:42-0400 Heart rate 50 /min Luisito Donovan MD Work Phone: [facility] PostedIn 02-18-2023 09:42-0400 Systolic blood pressure 140 mm[Hg] Luisito Donovan MD Work Phone: [facility] PostedIn 01-27-2023 13:34-0400 Body mass index (BMI) [Ratio] 40.03 kg/m2 Luisito Donovan MD Work Phone: [facility] PostedIn 01-27-2023 13:34-0400 Body temperature 98.6 [degF] Luisito Donovan MD Work Phone: [facility] PostedIn 01-27-2023 13:34-0400 Body weight 102.51 kg Luisito Donovan MD Work Phone: [facility] PostedIn 01-27-2023 13:34-0400 Diastolic blood pressure 75 mm[Hg] Luisito Donovan MD Work Phone: [facility] PostedIn 01-27-2023 13:34-0400 Heart rate 54 /min Luisito Donovan MD Work Phone: [facility] PostedIn 01-27-2023 13:34-0400 Systolic blood pressure 131 mm[Hg] Luisito Donovan MD Work Phone: [facility] PostedIn 07-22-2022 09:03-0500 Body temperature 98 [degF] Dr. Dina Wu Work Phone: [facility] Work Phone: 07-22-2022 09:03-0500 Body weight 102.[address] Dina Wu Work Phone: [facility] Work Phone: 07-22-2022 09:03-0500 Diastolic blood pressure 98 mm[Hg] Dr. Dina Wu Work Phone: [facility] Work Phone: 07-22-2022 09:03-0500 Heart rate 101 /min Dr. Dina Wu Work Phone: [facility] Work Phone: 07-22-2022 09:03-0500 Respiratory rate 18 /min Dr. Dina Wu Work Phone: [facility] Work Phone: 07-22-2022 09:03-0500 SaO2% (BldA) [Mass fraction] 97 % Dr. Dina Wu Work Phone: [facility] Work Phone: 07-22-2022 09:03-0500 Systolic blood pressure 156 mm[Hg] Dr. Dina Wu Work Phone: [facility] Work Phone: 06-11-2022 08:36-0400 Body height 156.[address] Dina Wu Work Phone: [facility] Work Phone: 06-11-2022 08:36-0400 Body mass index (BMI) [Ratio] 42.3 kg/m2 Dr. Dina Wu Work Phone: [facility] Work Phone: 06-11-2022 08:36-0400 Body temperature 97.7 [degF] Dr. Dina Wu Work Phone: [facility] Work Phone: 06-11-2022 08:36-0400 Body weight 103.[address] Dina Wu Work Phone: [facility] Work Phone: 06-11-2022 08:36-0400 Diastolic blood pressure 84 mm[Hg] Dr. Dina Wu Work Phone: [facility] Work Phone: 06-11-2022 08:36-0400 Heart rate 50 /min Dr. Dina Wu Work Phone: [facility] Work Phone: 06-11-2022 08:36-0400 Respiratory rate 16 /min Dr. Dina Wu Work Phone: [facility] Work Phone: 06-11-2022 08:36-0400 SaO2% (BldA) [Mass fraction] 99 % Dr. Dina Wu Work Phone: [facility] Work Phone: 06-11-2022 08:36-0400 Systolic blood pressure 140 mm[Hg] Dr. Dina Wu Work Phone: [facility] Work Phone: 05-08-2022 13:19-0400 Body height 156.[address] Dina Wu Work Phone: [facility] Work Phone: 05-08-2022 13:19-0400 Body mass index (BMI) [Ratio] 42.7 kg/m2 Dr. Dina Wu Work Phone: [facility] Work Phone: 05-08-2022 13:19-0400 Body temperature 97.9 [degF] Dr. Dina Wu Work Phone: [facility] Work Phone: 05-08-2022 13:19-0400 Body weight 104.[address] Dina Wu Work Phone: [facility] Work Phone: 05-08-2022 13:19-0400 Diastolic blood pressure 82 mm[Hg] Dr. Dina Wu Work Phone: [facility] Work Phone: 05-08-2022 13:19-0400 Heart rate 58 /min Dr. Dina Wu Work Phone: [facility] Work Phone: 05-08-2022 13:19-0400 Respiratory rate 14 /min Dr. Dina Wu Work Phone: [facility] Work Phone: 05-08-2022 13:19-0400 SaO2% (BldA) [Mass fraction] 97 % Dr. Dina Wu Work Phone: [facility] Work Phone: 05-08-2022 13:19-0400 Systolic blood pressure 144 mm[Hg] Dr. Dina Wu Work Phone: [facility] Work Phone: 04-17-2022 10:35-0400 Body mass index (BMI) [Ratio] 42.8 kg/m2 Dr. Dina Wu Work Phone: [facility] Work Phone: 04-17-2022 10:35-0400 Body temperature 97.8 [degF] Dr. Dina Wu Work Phone: [facility] Work Phone: 04-17-2022 10:35-0400 Body weight 104.[address] Dina Wu Work Phone: [facility] Work Phone: 04-17-2022 10:35-0400 Diastolic blood pressure 84 mm[Hg] Dr. Dina Wu Work Phone: [facility] Work Phone: 04-17-2022 10:35-0400 Heart rate 51 /min Dr. Dina Wu Work Phone: [facility] Work Phone: 04-17-2022 10:35-0400 Respiratory rate 18 /min Dr. Dina Wu Work Phone: [facility] Work Phone: 04-17-2022 10:35-0400 SaO2% (BldA) [Mass fraction] 98 % Dr. Dina Wu Work Phone: [facility] Work Phone: 04-17-2022 10:35-0400 Systolic blood pressure 150 mm[Hg] Dr. Dina Wu Work Phone: [facility] Work Phone: 07-27-2021 07:25-0500 Body height 156.[address] Dina Wu Work Phone: [facility] Work Phone: 07-27-2021 07:25-0500 Body mass index (BMI) [Ratio] 39.9 kg/m2 Dr. Dina Wu Work Phone: [facility] Work Phone: 07-27-2021 07:25-0500 Body temperature 97.5 [degF] Dr. Dina Wu Work Phone: [facility] Work Phone: 07-27-2021 07:25-0500 Body weight 97.[address] Dina Wu Work Phone: [facility] Work Phone: 07-27-2021 07:25-0500 Diastolic blood pressure 70 mm[Hg] Dr. Dina Wu Work Phone: [facility] Work Phone: 07-27-2021 07:25-0500 Heart rate 66 /min Dr. Dina Wu Work Phone: [facility] Work Phone: 07-27-2021 07:25-0500 Respiratory rate 18 /min Dr. Dina Wu Work Phone: [facility] Work Phone: 07-27-2021 07:25-0500 SaO2% (BldA) [Mass fraction] 99 % Dr. Dina Wu Work Phone: [facility] Work Phone: 07-27-2021 07:25-0500 Systolic blood pressure 126 mm[Hg] Dr. Dina Wu Work Phone: [facility] Work Phone: 04-29-2019 15:21-0400 BMI (Body Mass Index) 38.79 kg/m2 [facility] 04-29-2019 15:21-0400 Body Temperature 97.81 [degF] [facility] 04-29-2019 15:21-0400 Body weight 99.34 kg [facility] 04-29-2019 15:21-0400 BP Diastolic 69 mm[Hg] [facility] 04-29-2019 15:21-0400 BP Systolic 122 mm[Hg] [facility] 04-29-2019 15:21-0400 Height 160 cm [place], [place] 04-29-2019 15:21-0400 Pulse (Heart Rate) 50 /min [facility] [place] 04-29-2019 15:21-0400 Pulse Oximetry 97 % [facility] [place] Encounters Encounter Date Encounter Type Care Provider Facility Start: 03-03-2025 [facility] Start: 02-18-2025 End: 02-18-2025 ambulatory LUISITO DONOVAN [facility] Start: 02-18-2025 End: 02-18-2025 Patient encounter procedure Luisito Donovan MD Work Phone: 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 Comment on above: Spastic diplegia (CM S/HCC) (HCC) (Primary Dx) Start: 10-12-2024 End: 10-12-2024 [facility] Start: 10-07-2024 End: 10-07-2024 [facility] Start: 10-06-2024 End: 10-06-2024 ambulatory Gege Jamison MD Work Phone: URO/Gynecology Comment on above: Do i need appt today ? Start: 09-20-2024 End: 09-20-2024 ambulatory Radha Katy Thadabbie Facility:[facility] Start: 09-16-2024 End: 09-16-2024 Telephone encounter Gege Jamison MD Work Phone: U[facility]/Gynecology Comment on above: Care Coordination (B otox) Start: 08-26-2024 End: 08-26-2024 [facility]ulatory [facility] Start: 08-20-2024 End: 08-20-2024 ambulatory LUISITO DONOVAN [facility] Start: 08-20-2024 End: 08-20-2024 Patient encounter procedure Luisito Donovan MD Work Phone: [facility] Comment on above: Spastic diplegia (CM S/HCC) (HCC) (Primary Dx) Start: 08-04-2024 End: 08-04-2024 ambulatory GEGE JAMISON Facility:[facility] Start: 08-03-2024 End: 08-04-2024 Telephone encounter Gege Jamison MD Work Phone: [facility]Gynecology Start: 07-19-2024 End: 07-19-2024 [facility] Start: 07-16-2024 End: 07-16-2024 [facility] Start: 07-07-2024 End: 07-07-2024 ambulatory Eddie MENDEZ Facility:[facility] Start: 07-07-2024 End: 07-07-2024 [facility] Start: 07-01-2024 End: 07-01-2024 [facility] Start: 06-24-2024 End: 06-24-2024 [facility] Start: 05-21-2024 End: 05-21-2024 [facility] Start: 05-21-2024 End: 05-21-2024 Patient encounter procedure [facility] Donovan [facility] Comment on above: Spastic diplegia (CM S/HCC) (HCC) (Primary Dx) Start: 05-13-2024 End: 05-13-2024 Telephone encounter Gege Jamison MD Work Phone: U[facility]/Gynecology Start: 04-27-2024 End: 04-27-2024 ambulatory [facility] Facility:[facility] Start: 04-19-2024 End: 04-19-2024 [facility] Start: 04-19-2024 End: 04-19-2024 [facility] Start: 04-14-2024 End: 04-14-2024 [facility] Start: 04-12-2024 End: 04-12-2024 ambulatory [facility] Facility:[facility] Start: 04-01-2024 End: 04-01-2024 ambulatory GEGE JAMISON Facility:[facility] Start: 04-01-2024 End: 04-01-2024 Patient encounter procedure Gege Jamison MD Work Phone: [facility]Gynecology Comment on above: Urge incontinence (P rimary Dx); Neurogenic dysfunction of the urinary bladder; OAB (overactive bladder) Start: 03-19-2024 Refill Luz OSHEA RN.CNC MACHINE OPERATOR Work Phone: U[facility]/Gynecology Comment on above: Refill Request Start: 03-14-2024 End: 03-14-2024 ambulatory LUCIA CORTES Facility:[facility] Start: 03-14-2024 End: 03-14-2024 ambulatory ANNITA ESCOBEDO Facility:[facility] Start: 03-14-2024 End: 03-14-2024 Subsequent hospital visit by physician Mri 4 Radio Main Q (I-Stat/1.5t/3t) Work Phone: MRI Q Comment on above: Multiple sclerosis ( HCC) [G35] Start: 03-08-2024 End: 03-08-2024 [facility] Start: 02-23-2024 End: 02-23-2024 Telephone encounter Luisito Donovan MD Work Phone: [facility] Comment on above: Med Management (Boto x PA) Start: 02-20-2024 End: 02-20-2024 Patient encounter procedure Luisito Donovan MD Work Phone: [facility] Comment on above: Spastic diplegia (CM S/HCC) (HCC) (Primary Dx) Start: 02-11-2024 End: 02-11-2024 ambulatory ANNITA LUANA ESCOBEDO Facility:[facility] Start: 02-11-2024 End: 02-11-2024 Patient encounter procedure Lucia Cortes MD Work Phone: [facility] Comment on above: Multiple sclerosis ( HCC) (Primary Dx) Start: 01-21-2024 MC Get Medical Advice Lucia Cortes MD Work Phone: [facility] Comment on above: I need a Physical Th erapy Order I need a Physical Th erapy Order here is FAX # Start: 01-08-2024 End: 01-08-2024 ambulatory Maria De Jesus Rivera Black ASSIGNMENT AGENT.CNC MACHINE OPERATOR Work Phone: Urogynecology Comment on above: OAB (overactive blad libia) (Primary Dx); Neurogenic dysfunction of the urinary bladder; MS (multiple sclerosis) (HCC) Start: 01-08-2024 End: 01-08-2024 Telemedicine consultation with patient Maria De Jesus Cleaning ASSIGNMENT AGENT.CNC MACHINE OPERATOR Work Phone: Urogynecology Start: 01-08-2024 Telephone encounter Gege farfan MD Work Phone: [facility]Gynecology Comment on above: Care Coordination (B otox) Start: 12-31-2023 Telephone encounter Gege farfan MD Work Phone: U[facility]/Gynecology Comment on above: Patient Question Start: 12-17-2023 ambulatory Lucia Maguire Work Phone: [facility] Comment on above: EEG Results are back Start: 12-16-2023 End: 12-16-2023 ambulatory ANNITA ESCOBEDO Facility:[facility] Start: 11-25-2023 ambulatory Lucia Maguire Work Phone: [facility] Comment on above: Kidney [facility] Start: 11-21-2023 End: 11-21-2023 ambulatory ANNITA ESCOBEDO Facility:[facility] Start: 11-21-2023 End: 11-21-2023 Patient encounter procedure Lucia Cortes MD Work Phone: [facility] Comment on above: Episode of loss of c onsciousness (Primary Dx); Multiple sclerosis (HCC) [G35] Start: 11-21-2023 End: 11-21-2023 Patient encounter procedure Luisito Donovan MD Work Phone: [facility] Comment on above: MS (multiple scleros is) (HCC) (Primary Dx) Start: 10-30-2023 Telephone encounter Gege farfan MD Work Phone: [facility]/Gynecology Start: 10-27-2023 Refill Maria De Jesus OSHEA RN.CNC MACHINE OPERATOR Work Phone: [facility]Gynecology Comment on above: Med Change Request Start: 10-24-2023 Refill Gege Maguire Work Phone: [facility]Gynecology Start: 10-23-2023 Telephone encounter Gege farfan MD Work Phone: [facility]Gynecology Start: 10-08-2023 End: 10-08-2023 Orders Only Aura Dennison MD Work Phone: [facility] Comment on above: Radiculopathy, cervi yani region (Primary Dx) Spinal stenosis of c ervical region (Primary Dx) Cervical disc disord er with radiculopathy [M50.10] Start: 08-21-2023 End: 08-21-2023 Patient encounter procedure Maria E Johnson APRN - CNC MACHINE OPERATOR Work Phone: [facility] Comment on above: Spastic diplegia (CM S/HCC) (HCC) (Primary Dx); Multiple sclerosis (HCC) Start: 05-21-2023 End: 05-21-2023 Patient encounter procedure Luisito Donovan MD Work Phone: [facility] Comment on above: Spastic diplegia (CM S/HCC) (HCC) (Primary Dx) Start: 03-19-2023 End: 08-16-2023 ambulatory DINA WU Facility:[facility] Start: 03-02-2023 Encounter for preprocedural cardiovascular examination DR CIRO ALEX MD [facility] Start: 03-02-2023 Encounter for preprocedural laboratory examination DR CIRO ALEX MD [facility] Start: 02-24-2023 End: 02-24-2023 [facility] Start: 02-18-2023 Refill Bob valverde PharmD [facility] Start: 02-18-2023 End: 02-18-2023 Patient encounter procedure Luisito Donovan MD Work Phone: [facility] Comment on above: Spasticity (Primary Dx) Start: 01-27-2023 End: 01-27-2023 Office outpatient new 45 minutes Luisito Donovan MD Work Phone: [facility] Comment on above: Spastic diplegia (CM S/HCC) (HCC) (Primary Dx); Multiple sclerosis (HCC) Start: 01-09-2023 End: 01-10-2023 ambulatory DINA WU Facility:[facility] Start: 07-22-2022 End: 07-22-[address] Dina Wu Work Phone: [facility] Start: 07-11-2022 End: 07-24-[address] Dina Wu Work Phone: [facility] Work Phone: Start: 07-11-2022 End: 07-24-[address] Dina Wu Work Phone: [facility], [place] Start: 06-11-2022 End: 06-24-[address] Dina Wu Work Phone: [facility] Work Phone: Start: 06-11-2022 End: 06-24-[address] [facility] Start: 06-11-2022 End: 06-11-[address] Dina Wu Work Phone: [facility] Start: 05-10-2022 End: 05-10-[address] Dina Wu Work Phone: [facility] Work Phone: Start: 05-10-2022 End: 05-10-[address] Dina Wu Work Phone: [facility] Start: 05-08-2022 End: 05-08-[address] Dina Wu Work Phone: [facility] Start: 05-01-2022 End: 05-24-[address] Dina Wu Work Phone: [facility] Work Phone: Start: 05-01-2022 End: 05-24-[address] Dina uW Work Phone: [facility], [place] Start: 05-01-[address] Mariana Wu [facility] [place] Start: 04-17-2022 End: 04-17-[address] Dina Wu Work Phone: [facility] Start: 03-30-2022 End: 03-30-[address] [facility] Start: 02-22-2022 End: 02-22-[address] [facility] Start: 02-22-2022 End: 02-22-[address] [facility] Start: 02-08-2022 Non-patient / Non-visit Dr. Karyna Wu Work Phone: [facility] Start: 02-07-2022 End: 02-07-[address] Dina Wu Work Phone: [facility], [facility] Start: 01-24-2022 End: 01-24-[address] Dina Wu Work Phone: [facility] [place] Start: 12-26-2021 End: 01-22-2022 Discharged Recurring [facility] [place] Start: 11-28-2021 End: 12-22-[address] Dina Wu Work Phone: [facility] [place] Start: 10-26-2021 End: 10-26-[address] Dina Wu Work Phone: [facility] [place] Start: 10-25-2021 End: 11-22-[address] Dina Wu Work Phone: [facility] [place] Start: 10-01-2021 End: 10-01-[address] Dina Wu Work Phone: [facility] Start: 09-13-2021 End: 09-13-[address] Dina Wu Work Phone: [facility], Specimen Start: 09-05-2021 End: 09-24-[address] Dina Wu Work Phone: [facility] [place] Start: 07-27-2021 End: 08-24-[address] Dina Wu Work Phone: [facility] [place] Start: 07-27-2021 End: 07-27-[address] Dina Wu Work Phone: [facility] Start: 04-29-2019 End: 04-29-2019 Subsequent hospital visit by physician Godwin Huddleston Work Phone: [facility] Comment on above: Arrived Procedures Date Procedure Procedure Detail Performing Clinician Start: 03-14-2024 Mri spinal canal tho sanjeev w/o & w/contr matrl Ki Callahan MD Work Phone: Start: 02-22-2022 MRI of lumbar spine Dr[address] Dina Wu Work Phone: Start: 02-07-2022 CT of abdomen withou t contrast Dr. Dina Wu Work Phone: Start: 04-27-2020 Mammography Luisito schroeder MD Work Phone: Start: 04-29-2019 Basic metabolic pane l calcium total Magi R Attica Work Phone: Start: 04-29-2019 Blood count complete automated Magi R Nia Work Phone: Start: 01-12-2018 Colonoscopy Aura Maxwell MD Work Phone: Start: 05-29-2017 Thyrotropin [Units/v olume] in Serum or Plasma Luisito Donovan MD Work Phone: Plan of Treatment Date Care Activity Detail Author Start: 2044 RSV Immunization for Adults (1 - 1-dose 75+ series) RSV Immunization for Adults (1 - 1-dose 75+ series) [facility] Start: 2034 Pneumococcal Vaccine : Pediatrics (0 to 5 Years) and At-Risk Patients (6 to 64 Years) (3 of 3 - PPSV23 or PCV20) Pneumococcal Vaccine: Pediatrics (0 to 5 Years) and At-Risk Patients (6 to 64 Years) (3 of 3 - PPSV23 or PCV20) [facility] Start: 2029 RSV Immunization age d 60 or older (1 - 1-dose 60+ series) RSV Immunization aged 60 or older (1 - 1-dose 60+ series) [facility] Start: 05-20-2025 End: 05-20-2025 Patient encounter procedure 05/20/2025 8:30 AM EDT Procedure Visit [address] [place] [address] [place] [phone] Luisito Donovan MD [address] [place] [address] [address] [facility] Start: 04-25-2025 Influenza vaccination Influenz a Vaccine (Season Ended) [facility] Start: 02-18-2025 End: 02-18-2025 Patient encounter procedure 02/18/2025 8:30 AM EDT Procedure Visit [address] [facility] [place] [address] Luisito Donovan MD [address] [place] [address] [facility] Start: 11-19-2024 End: 11-19-2024 Patient encounter procedure 11/19/2024 8:00 AM EDT Procedure Visit [address] [facility] [place] [phone] Luisito Donovan MD [address] [place] [address] [facility] Start: 10-06-2024 End: 10-06-2024 Patient encounter procedure 10/06/2024 2:15 PM EST Office Visit URO/Gynecology [address] [place] [address] Luz Parsons, ASSIGNMENT AGENT.CNC MACHINE OPERATOR [address] [place] [address] [place] [address] Cysto w/Botox [facility]Gy[facility]cology Comment on above: Cysto w/Botox Start: 10-06-2024 End: 10-06-2024 Patient encounter procedure [facility]Gynecology Comment on above: Cysto w/Botox Start: 10-01-2024 CYSTOSCOPY WHI CYSTOSCOPY WHI Procedures Routine Urge incontinence Expected: 10/01/2024 [facility] Work Phone: Comment on above: Expected: 10/01/2024 Start: 08-24-2024 Pneumococcal vaccination Pneum ococcal Vaccine (3 of 3 - PPSV23 or PCV20) [facility] Start: 08-24-2024 Pneumococcal Vaccine : 50+ (3 of 3 - PPSV23, PCV20 or PCV21) Pneumococcal Vaccine: 50+ (3 of 3 - PPSV23, PCV20 or PCV21) [facility] Start: 08-24-2024 Pneumococcal Vaccine : 50+ Years (3 of 3 - PCV20 or PCV21) Pneumococcal Vaccine: 50+ Years (3 of 3 - PCV20 or PCV21) [facility] Start: 08-20-2024 End: 08-20-2024 Patient encounter procedure 08/20/2024 8:30 AM EST Procedure Visit [facility] [address] [place] [address] [place] [phone] Luisito Donovan MD [address] [place] [address] [place] [address] [facility] Start: 08-03-2024 End: 11-02-2024 Bacteria identified in Urine by Culture URINE CULTURE Microbiology Routine UTI symptoms Expected: 08/03/2024, Expires: 11/02/2024 [facility] Work Phone: Comment on above: Expected: 08/03/2024 , Expires: 11/02/2024 Start: 05-21-2024 End: 05-21-2024 Patient encounter procedure 05/21/2024 8:15 AM EDT Procedure Visit [facility] [address] [place] [phone] Luisito Donovan MD [address] [place] [address] [facility] Start: 04-25-2024 COVID-19 Vaccine ( season) COVID-19 Vaccine ( season) [facility] Start: 04-25-2024 COVID-19 Vaccine ( season) COVID-19 Vaccine () [facility] Start: 04-25-2024 Influenza vaccination C [facility] Start: 04-02-2024 End: 04-02-2024 Patient encounter procedure 04/02/2024 8:00 AM EDT Office Visit [facility]/Gynecology [address] [place] [address] Gege Jamison MD [address] [place] [address] Cysto w/Botox [facility]Gynecology Comment on above: Cysto w/Botox Start: 04-01-2024 End: 04-01-2024 Patient encounter procedure 04/01/2024 8:00 AM EDT Office Visit [facility]Gynecology [address] [place] [address] Gege Jamison MD [address] [place] [address] Cysto w/Botox [facility]Gy[facility]cology Comment on above: Cysto w/Botox Start: 03-14-2024 End: 03-14-2024 Patient encounter procedure 03/14/2024 9:40 AM EDT Appointment MRI Q [address] [address] Multiple sclerosis (HCC) [G35] MRI Q Comment on above: Multiple sclerosis ( HCC) [G35] Start: 03-14-2024 End: 03-14-2024 Patient encounter procedure MRI Q Comment on above: Multiple sclerosis ( HCC) [G35] Start: 02-20-2024 End: 02-20-2024 Patient encounter procedure 02/20/2024 7:30 AM EDT Procedure Visit [facility] [place] [address] Luisito Donovan MD [address] [facility] [place] [address] [facility] Start: 02-11-2024 End: 02-11-2024 Patient encounter procedure 02/11/2024 2:45 PM EDT Office Visit [facility] [address] [address] Lucia Cortes MD [address] [address] 3 month followup [facility] Comment on above: 3 month followup Start: 11-21-2023 End: 11-21-2023 Patient encounter procedure 11/21/2023 7:30 AM EDT Procedure Visit [facility] [place] [phone] Luisito Donovan MD [address] [facility] [place] [address] [facility] Start: 10-24-2023 End: 01-23-2024 Comprehensive metabolic 2000 panel - Serum or Plasma COMP METABOLIC PANEL Lab Routine Medication management Expected: 10/24/2023, Expires: 01/23/2024 [facility] Work Phone: Comment on above: Expected: 10/24/2023 , Expires: 01/23/2024 Start: 08-25-2023 Behavioral Health Screening Behavioral Health Screening [facility] Start: 08-25-2023 Depression Assessment Depression Ass essment [facility] Start: 08-20-2023 End: 08-20-2023 Patient encounter procedure 08/20/2023 7:30 AM EST Procedure Visit [facility] [address] [place] [address] [place] [address] Luisito Donovan MD [address] [facility] [place] [address] [facility] Start: 05-21-2023 End: 05-21-2023 Patient encounter procedure 05/21/2023 8:00 AM EDT Procedure Visit [facility] [address] [place] [address] [place] [address] Luisito Donovan MD [address] [place] [address] [facility] Start: 04-25-2023 COVID-19 Vaccine ( season) COVID-19 Vaccine () [facility] Start: 04-25-2023 Influenza vaccination [facility] Start: 02-18-2023 End: 02-18-2023 Patient encounter procedure 02/18/2023 9:30 AM EDT Procedure Visit [facility] [address] [place] [address] [place] [address] Luisito Donovan MD [address] [place] [address] [facility] Start: 04-29-2022 Diabetes Screening Diabetes Screenin g [facility] Start: 06-20-2021 COVID-19 Vaccine (3 - Booster for Moderna series) COVID-19 Vaccine (3 - Booster for Moderna series) [facility] Start: 06-20-2021 COVID-19 Vaccine (3 - Moderna series) COVID-19 Vaccine (3 - Moderna series) [facility] Start: 05-23-2021 Covid-19 Vaccine (3 - Moderna risk series) Covid-19 Vaccine (3 - Moderna risk series) [facility] Start: 04-27-2021 Screening for malign ant neoplasm of breast Mammogram [facility] Start: 2019 Screening for malign ant neoplasm of lung Lung Cancer Screening [facility] Start: 2019 Zoster Vaccines (1 of 2) Zoste r Vaccines (1 of 2) [facility] Start: 05-04-2019 End: 05-04-2019 Appointment 05/04/2019 Appointment General Surgery Godwin Huddleston MD [address] [place] [address], [address] [place] [address] [facility] General Surgery Start: 04-25-2019 Influenza vaccination Flu vaccine (# 1) [place], [place] Start: 01-12-2019 Screening for malign ant neoplasm of colon [facility] Start: 05-29-2018 Thyroid stimulating hormone measurement TSH Level [facility] Start: 04-04-2018 DTaP/Tdap/Td vaccine (6 - Td) DTaP/Tdap/Td vaccine (6 - Td) [place], [place] Start: 04-04-2018 DTaP/Tdap/Td Vaccine s (6 - Td or Tdap) DTaP/Tdap/Td Vaccines (6 - Td or Tdap) [facility] Start: 04-04-2018 DTaP/Tdap/Td Vaccine s (7 - Td or Tdap) DTaP/Tdap/Td Vaccines (7 - Td or Tdap) [facility] Start: 04-04-2018 Urine microalbumin profile [facility] Start: 2014 Lipid panel Lipid Screening [facility] Start: 2014 Screening for malign ant neoplasm of colon [facility] Start: 05-14-2010 MMR Vaccines (1 of 1 - Standard series) MMR Vaccines (1 of 1 - Standard series) [facility] Start: 2009 Diabetes screen Diabetes screen [place], [place] Start: 2009 Lipid screen Lipid screen [place], [place] Start: 2009 Screening for malign ant neoplasm of breast Mammogram Screening [facility] Start: 1999 Screening for malign ant neoplasm of cervix HPV Testing [facility] Start: 1990 Screening for malign ant neoplasm of cervix Pap Testing [facility] Start: 1988 Shingrix Vaccine (1 of 2) Shingrix Vaccine (1 of 2) [facility] Start: 1988 Urine screening for protein Diabetes: Urine Protein Screening [facility] Start: 1987 Anxiety Screening Anxiety Screening [facility] Start: 1987 Depression Screening Depression Scre ening [facility] Start: 1987 Diabetes: Estimated Glomerular Filtration Rate for Kidney Health Diabetes: Estimated Glomerular Filtration Rate for Kidney Health [facility] Start: 1987 Diabetes: Urine Albumin-Creatinine Ratio for Kidney Health Diabetes: Urine Albumin-Creatinine Ratio for Kidney Health [facility] Start: 1987 Hepatitis C screening Hepatitis C Sc reening [facility] Start: 1987 HIV screening HIV Screening [facility] Start: 1984 HIV screen HIV screen [place] Start: 1981 [facility] Start: 1981 Depression Screening Depression Scre [facility] Start: 1980 Screening for malign ant neoplasm of cervix Cervical Cancer Screening [facility] Start: 1979 Diabetic foot examination Diabetes: Foot Exam [facility] Start: 1979 Glaucoma screening Diabetes: R etinopathy Screening [facility] Start: 1979 Preventive dental service Diabetes: Dental Exam [facility] Start: 1975 Pneumococcal 0-64 ye ars Vaccine (1 of 1 - PPSV23) Pneumococcal 0-64 years Vaccine (1 of 1 - PPSV23) [place], [place] Start: 1969 Cyanocobalamin vitam in b-12 Vitamin B-12 [facility] Start: 1969 Diabetes: Celiac Dis ease Screening Diabetes: Celiac Disease Screening [facility] Start: 1969 Hemoglobin A1c measurement Diabetes: Hemoglobin A1C [facility] Start: 1969 HIV screening HIV Screening [facility] Start: 1969 Lipid panel Lipid Panel [facility] Start: 1970 Screening for malign ant neoplasm of colon [facility] Start: 1970 Thyroid stimulating hormone measurement TSH Level [facility] Bacteria identified in Urine by Culture URINE CULTURE Microbiology Routine UTI symptoms 08/04/2024 8:38 AM EST [facility] CYSTOSCOPY WHI CYSTOSCOPY WHI Procedures Routine Neurogenic dysfunction of the urinary bladder OAB (overactive bladder) 1 Occurrences starting 01/08/2024 [facility] Work Phone: Comment on above: 1 Occurrences starti ng 01/08/2024 EKG 12 Lead EKG 12 Lead ECG Routine 04/29/2019 4:31 PM EDT [facility] [place] End: 11-20-2024 EPIL EEG LONG EPIL EEG LONG NEUROLOGY Routine Episode of loss of consciousness 1 Occurrences starting 11/21/2023 until 11/20/2024 [facility] Work Phone: Comment on above: 1 Occurrences starti ng 11/21/2023 until 11/20/2024 End: 03-12-2025 MR Brain WO and W contrast IV MRI BRAIN WO/W IVCON Radiology Routine Multiple sclerosis (HCC) 1 Occurrences starting 02/11/2024 until 03/12/2025 [facility] Work Phone: Comment on above: 1 Occurrences starti ng 02/11/2024 until 03/12/2025 End: 03-12-2025 MR Cervical spine WO and W contrast IV MRI CERVICAL SPINE WO/W IVCON Radiology Routine Multiple sclerosis (HCC) 1 Occurrences starting 02/11/2024 until 03/12/2025 [facility] Comment on above: 1 Occurrences starti ng 02/11/2024 until 03/12/2025 End: 03-12-2025 MR Thoracic spine WO and W contrast IV MRI THORACIC SPINE WO/W IVCON Radiology Routine Multiple sclerosis (HCC) 1 Occurrences starting 02/11/2024 until 03/12/2025 [facility] Comment on above: 1 Occurrences starti ng 02/11/2024 until 03/12/2025 XR CERV OTHER 4V AP/LAT/FLX/EXT XR CERV OTHER 4V AP/LAT/FLX/EXT Radiology Routine Cervical disc disorder with radiculopathy 10/08/2023 10:08 AM EST [facility] Work Phone: [facility] Immunizations Immunization Date Immunization Notes Care Provider Valarie johns 03-28-2021 Leonard (Moderna) Dr. Darshan Wu Work Phone: [facility] Work Phone: 08-24-2019 pneumococcal polysaccharide vaccine, [address] Dina Wu Work Phone: [facility] Work Phone: 08-24-2019 pneumococcal vaccine , unspecified formulation Dr. Dina uW Work Phone: [facility] Work Phone: 06-22-2019 pneumococcal conjuga te vaccine, [address] Dina Wu Work Phone: [facility] Work Phone: 06-22-2019 pneumococcal vaccine , unspecified formulation Dr. Dina Wu Work Phone: [facility] Work Phone: 08-25-2016 influenza virus vacc ine, unspecified formulation Luisito Donovan MD Work Phone: [facility] Payers Date Payer Category Payer Self-pay [id number] 2023 Commercial Managed [facility] SUPERMED [id number] 2023 Unknown [id number] 2023 Unknown [id number] 2023 Private Health Insurance [id number] 2016 Unknown [employer] ANTHEM BLUE ACCESS ROSA xxxxxxxxxxxx 2016-Present [address] [place] [address] xxxxxxxxxxxx [id number] 2016 Unknown [id number] 1969 Unknown [id number] 2.16.840.1.078445.3.579.2 .419 1969 Unknown [id number] 2.16.840.1.533496.3.579.2 .419 1969 Unknown [id number] 2..840.1.762901.3.579.2 .419 1959 Private Health Insurance [id number] 1959 Private Health Insurance [id number] Private Health Insurance [id number] Unknown [id number] Unknown [id number] 2.16.840.1.983456.3.579.2 .462 Unknown [id number] 2.16840.1.223018.3.579.2 .462 Unknown [id number] 2.840.1.797600.3.579.2 .462 Unknown [id number] 2.16840.1.052423.3.579.2 .462 Unknown [id number] 2.16.840.1.903696.3.579.2 .462 Unknown [id number] 2.16.840.1.451524.3.579.2 .462 Unknown [id number] 2.16.840.1.169725.3.579.2 .462 Unknown [id number] 2.16.840.1.659977.3.579.2 .462 Unknown [id number] 2.16.840.1.745891.3.579.2 .462 Unknown [id number] 2.16.840.1.893968.3.579.2 .462 Unknown [id number] 2.16.840.1.367226.3.579.2 .462 Unknown [id number] 2.16.840.1.828888.3.579.2 .462 Unknown [id number] 2.16.840.1.406837.3.579.2 .462 Unknown [id number] 2.16.840.1.605732.3.579.2 .462 Unknown [id number] 2.16.840.1.465525.3.579.2 .462 Unknown [id number] 2.16.840.1.920939.3.579.2 .462 Unknown [id number] 2.16.840.1.084798.3.579.2 .462 Unknown [id number] 2.16.840.1.739224.3.579.2 .462 Unknown [id number] 2.16.840.1.603997.3.579.2 .462 Unknown [id number] 2.16.840.1.959970.3.579.2 .462 Social History Date Type Detail Facility Start: 04-29-2019 Tobacco smoking stat us DEIS Current every day smoker [place], [place] Start: 08-25-1986 End: 05-25-2021 History of tobacco use Cigarette Smoker [place], [place] Start: 04-29-2019 End: 02-18-2025 Cigarettes smoked current (pack per day) - Reported [facility] Start: 04-29-2019 End: 02-18-2025 Alcohol intake Not Currently [facility] Start: 1970 Sex Assigned At Not on file [place] Start: 07-27-2021 End: 07-22-2022 Tobacco smoking status NHIS Unknown if ever smoked [facility] Work Phone: Start: 04-10-2021 [facility] Start: 1970 Sex Assigned At Female [facility] Start: 01-27-2023 End: 02-20-2024 Tobacco smoking status NHIS Ex-smoker [facility] Start: 08-25-1986 End: 05-25-2021 History of tobacco use Current smoker [facility] Start: 01-27-2023 End: 02-20-2024 Tobacco use and exposure Smokeless tobacco non-user [facility] Start: 01-27-2023 End: 02-18-2025 Alcohol intake Ex-drinker (finding) [facility] Start: 01-26-2023 Gender identity Identifies as female gender (finding) [facility] Start: 01-26-2023 Sexual orientation Heterosexual (fin ding) [facility] Start: 01-17-2023 End: 02-18-2023 Exposure to SARS-CoV-2 (event) Not sure [facility] Start: 10-08-2023 End: 04-01-2024 Alcohol intake Current non-drinker of alcohol (finding) [facility] National Score (1-10 0), lower number is lower risk 74 [facility] Start: 03-25-2022 Sex Female (finding) [facility] Medical Equipment Procedure Code Equipment Code Equipment Origin al Text Equipment Identifier Dates [id number] Start: 10-18-2017 [id number] Start: 10-18-2017 Clinical Notes 10-30-2016 to 02-18-2025 Luisito Donovan MD - 02/18/2025 8:30 AM Viktor Humphries MA - 02/18/2025 8:30 AM Taylor Donovan MD - 11/19/2024 8:00 AM Zac Rosas MA - 11/19/2024 8:00 AM EDTPatient Instructions Note Date & Type Note Facility 02-18-2025 History of Present illness Narrative DEPARTMENT OF NEUROLOGY BOTOX PROCEDURE NOTE FOR SPASTICITY Patient: Sarika Avila : 1970 Diagnosis: Spasticity [R25.2] Procedure: [...] received Botox injections in the lower extremity muscles muscles. Patient received the following doses: 1. R biceps femoris 100 units in 3 different injection sites. 2. L biceps femoris 50 units into injection sites. 3. R gastrocnemius medialis 75 units 1 injection site 4. L gastrocnemius medialis 50 units 1 injection site total units injected 275 units. Units discarded 25 units. Comments: Patient received Botox injections into the lower extremities. Patient will return to the neurology clinic in 3 months.patient reported that she is doing better and her spasticity have improved after Botox injection. Patient have at least 60% improvement in the spasticity in the right lower extremity. Patient denies any side effect from medication. Thank you [x] Pt tolerated procedure well. Pt advised to avoid exercise or strenuous physical activity for 24 hours. Post treatment expectations reviewed in detail. Luisito Donovan MD Administrations This Visit onabotulinumtoxin A (BOTOX) injection 300 Units Admin Date 02/18/25 Action Given Dose 300 Units Route IntraMUSCular Site Other Administered By Luisito Donovan MD Ordering Provider: Luisito Donovan MD [facility]: [id number] (x3) Lot#: [id number] (x3) Premises Technician: Allergan Patient Supplied? No documented in this encounter [facility] 02-18-2025 Note DEPARTMENT OF NEUROL OGY BOTOX PROCEDURE NOTE FOR SPASTICITY Patient: Sarika Avila : 1970 Diagnosis: Spasticity [R25.2] Procedure: [...] received Botox injections in the lower extremity muscles muscles. Patient received the following doses: 1. R biceps femoris 100 units in 3 different injection sites. 2. L biceps femoris 50 units into injection sites. 3. R gastrocnemius medialis 75 units 1 injection site 4. L gastrocnemius medialis 50 units 1 injection site total units injected 275 units. Units discarded 25 units. Comments: Patient received Botox injections into the lower extremities. Patient will return to the neurology clinic in 3 months.patient reported that she is doing better and her spasticity have improved after Botox injection. Patient have at least 60% improvement in the spasticity in the right lower extremity. Patient denies any side effect from medication. Thank you [x] Pt tolerated procedure well. Pt advised to avoid exercise or strenuous physical activity for 24 hours. Post treatment expectations reviewed in detail. Luisito Donovan MD [facility] 11-19-2024 History of Present illness Narrative DEPARTMENT OF NEUROLOGY BOTOX PROCEDURE NOTE FOR SPASTICITY Patient: Sarika Avila : 1970 Diagnosis: Spasticity [R25.2] Procedure: [...] received Botox injections in the lower extremity muscles muscles. Patient received the following doses: 1. R biceps femoris 100 units in 3 different injection sites. 2. L biceps femoris 50 units into injection sites. 3. R Flexor digitorum longus 75 units 1 injection site 4. R Flexor digitorum brevis 50 units 1 injection total units injected 275 units. Units discarded 25 units. Comments: Patient received Botox injections into the lower extremities. Patient will return to the neurology clinic in 3 months.patient reported that she is doing better and her spasticity have improved after Botox injection. Patient have at least 60% improvement in the spasticity in the right lower extremity. Patient denies any side effect from medication. Thank you [x] Pt tolerated procedure well. Pt advised to avoid exercise or strenuous physical activity for 24 hours. Post treatment expectations reviewed in detail. Luisito Donovan MD Administrations This Visit onabotulinumtoxin A (BOTOX) injection 200 Units Admin Date 11/19/2024 Action Given Dose 275 Units Route IntraMUSCular Site Other Administered By [facility] Ordering Provider: Luisito Donovan MD [facility]:[id number] x3 Lot#: [id number] x2, [id number] Premises Technician: Allergan Patient Supplied?: No, buy & bill documented in this encounter [facility] 11-19-2024 Note DEPARTMENT OF NEUROL OGY BOTOX PROCEDURE NOTE FOR SPASTICITY Patient: Sarika Avila : 1970 Diagnosis: Spasticity [R25.2] Procedure: [...] received Botox injections in the lower extremity muscles muscles. Patient received the following doses: 1. R biceps femoris 100 units in 3 different injection sites. 2. L biceps femoris 50 units into injection sites. 3. R Flexor digitorum longus 75 units 1 injection site 4. R Flexor digitorum brevis 50 units 1 injection total units injected 275 units. Units discarded 25 units. Comments: Patient received Botox injections into the lower extremities. Patient will return to the neurology clinic in 3 months.patient reported that she is doing better and her spasticity have improved after Botox injection. Patient have at least 60% improvement in the spasticity in the right lower extremity. Patient denies any side effect from medication. Thank you [x] Pt tolerated procedure well. Pt advised to avoid exercise or strenuous physical activity for 24 hours. Post treatment expectations reviewed in detail. Luisito Donovan MD [facility] 09-16-2024 Telephone encounter Note 200 units Botox approved through 08/24/25 - NPCR. Updated sticky note. Pt scheduled for Botox on 10/06 at with Emily. Amna Burrows RN September 16, 2024 3:56 PM [facility] 09-16-2024 Miscellaneous Notes 200 units Botox approved through 08/24/25 - NPCR. Updated sticky note. Pt scheduled for Botox on 10/06 at with Emily. Amna Burrows RN September 16, 2024 3:56 PM documented in this encounter [facility] 08-20-2024 History of Present illness Narrative DEPARTMENT OF NEUROLOGY BOTOX PROCEDURE NOTE FOR SPASTICITY Patient: Sarika Avila : 1970 Diagnosis: Spasticity [R25.2] Procedure: [...] received Botox injections in the lower extremity muscles muscles. Patient received the following doses: 1. R biceps femoris 100 units in 3 different injection sites. 2. L biceps femoris 50 units into injection sites. 3. R Flexor digitorum longus 75 units 1 injection site 4. R Flexor digitorum brevis 50 units 1 injection total units injected 275 units. Units discarded 25 units. Comments: Patient received Botox injections into the lower extremities. Patient will return to the neurology clinic in 3 months.patient reported that she is doing better and her spasticity have improved after Botox injection. Patient have at least 60% improvement in the spasticity in the right lower extremity. Patient denies any side effect from medication. Thank you [x] Pt tolerated procedure well. Pt advised to avoid exercise or strenuous physical activity for 24 hours. Post treatment expectations reviewed in detail. Luisito Donovan MD Administrations This Visit onabotulinumtoxin A (BOTOX) injection 200 Units Admin Date 08/20/24 Action Given Dose 200 Units Route IntraMUSCular Site Other Administered By Luisito Donovan MD Ordering Provider: Luisito Donovan MD [facility]: [id number] Lot#: [id number] Premises Technician: Allergan Patient Supplied?: No documented in this encounter [facility] 08-20-2024 Note DEPARTMENT OF NEUROL OGY BOTOX PROCEDURE NOTE FOR SPASTICITY Patient: Sarika Avila : 1970 Diagnosis: Spasticity [R25.2] Procedure: [...] received Botox injections in the lower extremity muscles muscles. Patient received the following doses: 1. R biceps femoris 100 units in 3 different injection sites. 2. L biceps femoris 50 units into injection sites. 3. R Flexor digitorum longus 75 units 1 injection site 4. R Flexor digitorum brevis 50 units 1 injection total units injected 275 units. Units discarded 25 units. Comments: Patient received Botox injections into the lower extremities. Patient will return to the neurology clinic in 3 months.patient reported that she is doing better and her spasticity have improved after Botox injection. Patient have at least 60% improvement in the spasticity in the right lower extremity. Patient denies any side effect from medication. Thank you [x] Pt tolerated procedure well. Pt advised to avoid exercise or strenuous physical activity for 24 hours. Post treatment expectations reviewed in detail. Luisito Donovan MD [facility] 08-04-2024 Telephone encounter Note Due to difficulty with 3FLOZhart notes sending too quickly, I called patient. She just dropped off a sample at [facility] lab. We will see if she has an infection and if not, consider repeating her Botox soon. Gege Jamison MD [facility] 08-04-2024 Miscellaneous Notes Due to difficulty with MyChart notes sending too quickly, I called patient. She just dropped off a sample at [facility]. We will see if she has an infection and if not, consider repeating her Botox soon. Gege Jamison MD Three days ago patient went to use the restroom and has been experiencing urge incontinence. Patient had 200 units of Botox 04/01/2024. S: UTI symptoms B (confirm by chart review): Any recent antibiotic treatment: No. : No. History of recurrent UTIs: No. Recent surgery: No. Urine culture within the past 30 days No A: Symptoms include:urgency and incontinence Duration: 3 days R: No urine culture in past 30 days, ordered lab collect urine culture Pharmacy updated: Yes Allergies reviewed and updated: Yes Patient provided lab location in [place]. Carol Hyde RN Patient called in stating she is having accidents just in the last couple of days. Concerns of infection versus needing another Botox injection. Please advise. documented in this encounter [facility] 08-03-2024 Telephone encounter Note Three days ago patient went to use the restroom and has been experiencing urge incontinence. Patient had 200 units of Botox 04/01/2024. S: UTI symptoms B (confirm by chart review): Any recent antibiotic treatment: No. : No. History of recurrent UTIs: No. Recent surgery: No. Urine culture within the past 30 days No A: Symptoms include:urgency and incontinence Duration: 3 days R: No urine culture in past 30 days, ordered lab collect urine culture Pharmacy updated: Yes Allergies reviewed and updated: Yes Patient provided lab location in [place]. Carol Hyde RN [facility] 08-03-2024 Telephone encounter Note Patient called in stating she is having accidents just in the last couple of days. Concerns of infection versus needing another Botox injection. Please advise. [facility] 05-21-2024 History of Present illness Narrative DEPARTMENT OF NEUROLOGY BOTOX PROCEDURE NOTE FOR SPASTICITY Patient: Sarika Avila : 1970 Diagnosis: Spasticity [R25.2] Procedure: [...] Patient received Botox injections into the lower extremities. Patient will return to the neurology clinic in 3 months.patient reported that she is doing better and her spasticity have improved after Botox injection. Patient have at least 60% improvement in the spasticity in the right lower extremity. Patient denies any side effect from medication. Thank you [x] Pt tolerated procedure well. Pt advised to avoid exercise or strenuous physical activity for 24 hours. Post treatment expectations reviewed in detail. Luisito Donovan MD Administrations This Visit onabotulinumtoxin A (BOTOX) injection 300 Units Admin Date 05/21/24 Action Given Dose 300 Units Route IntraMUSCular Site Other Administered By Luisito Donovan MD Ordering Provider: Luisito Donovan MD [facility]: [id number] (x 3) Lot#: [id number] (x 3) Premises Technician: Allergan Patient Supplied?: No documented in this encounter [facility] 05-21-2024 History of Present illness Narrative DEPARTMENT OF NEUROLOGY BOTOX PROCEDURE NOTE FOR SPASTICITY Patient: Sarika Avila : 1970 Diagnosis: Spasticity [R25.2] Procedure: [...] received Botox injections in the neck and scalp muscles. Patient received the following doses: 1. R biceps femoris 100 units in 3 different injection sites. 2. L biceps femoris 50 units into injection sites. 3. R Flexor digitorum longus 75 units 1 injection site 4. R Flexor digitorum brevis 50 units 1 injection total units injected 275 units. Units discarded 25 units. Comments: Patient received Botox injections into the lower extremities. Patient will return to the neurology clinic in 3 months.patient reported that she is doing better and her spasticity have improved after Botox injection. Patient have at least 60% improvement in the spasticity in the right lower extremity. Patient denies any side effect from medication. Thank you [x] Pt tolerated procedure well. Pt advised to avoid exercise or strenuous physical activity for 24 hours. Post treatment expectations reviewed in detail. Luisito Donovan MD Administrations This Visit onabotulinumtoxin A (BOTOX) injection 300 Units Admin Date 05/21/24 Action Given Dose 300 Units Route IntraMUSCular Site Other Administered By Luisito Donovan MD Ordering Provider: Luisito Donovan MD [facility]: [id number] (x 3) Lot#: [id number] (x 3) Premises Technician: Allergan Patient Supplied?: No documented in this encounter [facility] 05-21-2024 History of Present illness Narrative DEPARTMENT OF NEUROLOGY BOTOX PROCEDURE NOTE FOR SPASTICITY Patient: Sarika Avila : 1970 Diagnosis: Spasticity [R25.2] Procedure: [...] received Botox injections in the lower extremity muscles muscles. Patient received the following doses: 1. R biceps femoris 100 units in 3 different injection sites. 2. L biceps femoris 50 units into injection sites. 3. R Flexor digitorum longus 75 units 1 injection site 4. R Flexor digitorum brevis 50 units 1 injection total units injected 275 units. Units discarded 25 units. Comments: Patient received Botox injections into the lower extremities. Patient will return to the neurology clinic in 3 months.patient reported that she is doing better and her spasticity have improved after Botox injection. Patient have at least 60% improvement in the spasticity in the right lower extremity. Patient denies any side effect from medication. Thank you [x] Pt tolerated procedure well. Pt advised to avoid exercise or strenuous physical activity for 24 hours. Post treatment expectations reviewed in detail. Luisito Donovan MD Administrations This Visit onabotulinumtoxin A (BOTOX) injection 300 Units Admin Date 05/21/24 Action Given Dose 300 Units Route IntraMUSCular Site Other Administered By Luisito Donovan MD Ordering Provider: Luisito Donovan MD [facility]: [id number] (x 3) Lot#: [id number] (x 3) Premises Technician: Allergan Patient Supplied?: No documented in this encounter [facility] 05-21-2024 Note DEPARTMENT OF NEUROL OGY BOTOX PROCEDURE NOTE FOR SPASTICITY Patient: Sarika Avila : 1970 Diagnosis: Spasticity [R25.2] Procedure: [...] received Botox injections in the lower extremity muscles muscles. Patient received the following doses: 1. R biceps femoris 100 units in 3 different injection sites. 2. L biceps femoris 50 units into injection sites. 3. R Flexor digitorum longus 75 units 1 injection site 4. R Flexor digitorum brevis 50 units 1 injection total units injected 275 units. Units discarded 25 units. Comments: Patient received Botox injections into the lower extremities. Patient will return to the neurology clinic in 3 months.patient reported that she is doing better and her spasticity have improved after Botox injection. Patient have at least 60% improvement in the spasticity in the right lower extremity. Patient denies any side effect from medication. Thank you [x] Pt tolerated procedure well. Pt advised to avoid exercise or strenuous physical activity for 24 hours. Post treatment expectations reviewed in detail. Luisito Donovan MD [facility] 05-13-2024 Telephone encounter Note Yeison SHIN to call [facility] office back to see how she is doing since receiving her Cystoscopy Botox treatment. Radha Perez RN 04/01/24 Cysto/Botox treatment: The patient was consented for the procedure and all of her questions were answered. The patient was placed in dorsal lithotomy position and prepped and draped in sterile fashion. 200 units of botox was injected in 1 cc aliquots divided 20 cc of normal saline used to reconstitute the botox into the Detrusor muscle while using a flexible cystoscope and an Injetak needle. All 20 sites were injected just superior to the trigone. A 1 cc flush with preservative-free normal saline was injected to complete the procedure. The patient tolerated the procedure well. I personally performed the entire procedure. Gege Jamison MD [facility] 05-13-2024 Miscellaneous Notes Yeison SHIN to call [facility] office back to see how she is doing since receiving her Cystoscopy Botox treatment. Radha Perez RN 04/01/24 Cysto/Botox treatment: The patient was consented for the procedure and all of her questions were answered. The patient was placed in dorsal lithotomy position and prepped and draped in sterile fashion. 200 units of botox was injected in 1 cc aliquots divided 20 cc of normal saline used to reconstitute the botox into the Detrusor muscle while using a flexible cystoscope and an Injetak needle. All 20 sites were injected just superior to the trigone. A 1 cc flush with preservative-free normal saline was injected to complete the procedure. The patient tolerated the procedure well. I personally performed the entire procedure. Gege Jamison MD ----- Message from Gege Jamison MD sent at 04/01/2024 8:04 AM EDT ----- Regarding: botox followup Please call patient to see how she is doing after botox treatment. If she is doing well, confirm she has a six month appointment. 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 Thanks, Gege Jamison MD documented in this encounter [facility] 05-13-2024 Telephone encounter Note ----- Message from Gege Jamison MD sent at 04/01/2024 8:04 AM EDT ----- Regarding: botox followup Please call patient to see how she is doing after botox treatment. If she is doing well, confirm she has a six month appointment. 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 Thanks, Gege Jamison MD [facility] 04-01-2024 Instructions Gege Jamison MD - 04/01/2024 8:04 AM EDT BOTOX TREATMENT INFORMATION Many people think overactive bladder (OAB) is just part of getting older. However, OAB is a chronic condition that requires ongoing treatment. HOW DOES BOTOX WORK? In your body, certain chemicals travel from nerve cells to muscle cells to make your bladder contract so that you can urinate. For people who have OAB, these muscles contract uncontrollably, creating leakage, the sudden strong need to go, and going too often. BOTOX is placed directly in the bladder muscle, helping block the nerve signals that trigger OAB. BEFORE THE PROCEDURE Before treating you with BOTOX , we must first receive your insurance company's approval. We will submit information to your insurance company for prior authorization to proceed with treatment, which can take 2 to 4 weeks, depending on your health plan. In some cases, we will need to obtain BOTOX through a specialty pharmacy. If this is required, the specialty pharmacy will contact you for permission to give the medication to our office and collect any needed copayment. We may have to move your appointment if approval is not received in time, but this is not typically an issue. We will also notify you if your insurance denies the procedure and discuss the next steps. You are responsible for any cost not covered by insurance. All balances must be paid in full before additional treatments will be provided. WHAT SHOULD I EXPECT? Dr. Jamison completes the procedure with support from a medical receptionist. The actual procedure takes about 3-5 minutes. The procedure may be uncomfortable, but any discomfort subsides after injections are received. You can drive and return to your regular activity, including work, immediately. The majority of patients receiving BOTOX have at least a 50% reduction of daily leakage episodes. Many of these patients reduced their leakage episodes by 75%. Approximately 1 in 4 of these patients reported leakage episodes stopped completely. After your first treatment, you will receive a phone call from the nurse to see how the treatment is working for you. If you do not have the results you were hoping for, we can often increase the dose. BOTOX works for up to 6 months, which is why re-treatment is about two times a year. You may start to notice results at two weeks. If your OAB symptoms return before six months, contact your doctor so you may be re-treated sooner. A minimum of 12 weeks is needed between treatments. ARE THERE ANY SIDE EFFECTS? The most common side effects after a BOTOX treatment are: Urinary tract infection (18% vs. 6% with placebo) Painful or difficult urination (9% vs. 7% placebo) Temporary inability to empty your bladder, which may require the use of a self-catheter (6% vs. 0% placebo) (VERY UNCOMMON!) However, most patients do not experience the above side effects and find tremendous relief from this treatment. IMPORTANT REBATE INFO!!! To enroll in the Botox Savings Program: [place]AVE to 93346 visit [email or web address] Call 6-287-17-BOTOX documented in this encounter [facility] 04-01-2024 Note HNO ID: [id number] Author: GEGE JAMISON MD Service: ? Author Type: Physician Type: Procedures Filed: 04/01/2024 08:05 Note Text: Intravesical Botox Injection Procedure Note UNIVERSAL PROTOCOL / SAFETY CHECKLIST Procedure to be Performed: Intravesical Botox Injection Diagnosis: urge urinary incontinence Sign In: A Moment of CARE was completed. Personnel directly involved with the procedure wore the appropriate PPE (Personal Protective Equipment). Patient/Surrogate Stated/Verified: PATIENT VERIFIED(optional for EMERGENT procedures): Patient name, Date of , Relevant allergies, and The intended procedure Time Out Communication: Intended patient and procedure match the source documents. Consent documented and matches the intended procedure. Sign Out: SIGN OUT (optional for EMERGENT procedures): No specimen collected. The patient was consented for the procedure and all of her questions were answered. The patient was placed in dorsal lithotomy position and prepped and draped in sterile fashion. 200 units of botox was injected in 1 cc aliquots divided 20 cc of normal saline used to reconstitute the botox into the Detrusor muscle while using a flexible cystoscope and an Injetak needle. All 20 sites were injected just superior to the trigone. A 1 cc flush with preservative-free normal saline was injected to complete the procedure. The patient tolerated the procedure well. I personally performed the entire procedure. Gege Jamison MD [facility] 04-01-2024 Procedure note Procedure(s): CHEMODENERVATION/ BLADDER Pre-Procedure Diagnose(s): Urge incontinence Post-Procedure Diagnose(s): Urge incontinence Intravesical Botox Injection Procedure Note UNIVERSAL PROTOCOL / SAFETY CHECKLIST Procedure to be Performed: Intravesical Botox Injection Diagnosis: urge urinary incontinence Sign In: A Moment of CARE was completed. Personnel directly involved with the procedure wore the appropriate PPE (Personal Protective Equipment). Patient/Surrogate Stated/Verified: PATIENT VERIFIED(optional for EMERGENT procedures): Patient name, Date of , Relevant allergies, and The intended procedure Time Out Communication: Intended patient and procedure match the source documents. Consent documented and matches the intended procedure. Sign Out: SIGN OUT (optional for EMERGENT procedures): No specimen collected. The patient was consented for the procedure and all of her questions were answered. The patient was placed in dorsal lithotomy position and prepped and draped in sterile fashion. 200 units of botox was injected in 1 cc aliquots divided 20 cc of normal saline used to reconstitute the botox into the Detrusor muscle while using a flexible cystoscope and an Injetak needle. All 20 sites were injected just superior to the trigone. A 1 cc flush with preservative-free normal saline was injected to complete the procedure. The patient tolerated the procedure well. I personally performed the entire procedure. Gege Jamison MD [facility] 04-01-2024 Procedure note Procedure(s): CHEMODENERVATION/ BLADDER Pre-Procedure Diagnose(s): Urge incontinence Post-Procedure Diagnose(s): Urge incontinence Intravesical Botox Injection Procedure Note UNIVERSAL PROTOCOL / SAFETY CHECKLIST Procedure to be Performed: Intravesical Botox Injection Diagnosis: urge urinary incontinence Sign In: A Moment of CARE was completed. Personnel directly involved with the procedure wore the appropriate PPE (Personal Protective Equipment). Patient/Surrogate Stated/Verified: PATIENT VERIFIED(optional for EMERGENT procedures): Patient name, Date of , Relevant allergies, and The intended procedure Time Out Communication: Intended patient and procedure match the source documents. Consent documented and matches the intended procedure. Sign Out: SIGN OUT (optional for EMERGENT procedures): No specimen collected. The patient was consented for the procedure and all of her questions were answered. The patient was placed in dorsal lithotomy position and prepped and draped in sterile fashion. 200 units of botox was injected in 1 cc aliquots divided 20 cc of normal saline used to reconstitute the botox into the Detrusor muscle while using a flexible cystoscope and an Injetak needle. All 20 sites were injected just superior to the trigone. A 1 cc flush with preservative-free normal saline was injected to complete the procedure. The patient tolerated the procedure well. I personally performed the entire procedure. Gege Jamison MD documented in this encounter [facility] 03-14-2024 Note HNO ID: [id number] Author: FLOR SANCHEZ RN Service: Nursing Author Type: Registered Nurse Type: Progress Notes Filed: 03/14/2024 08:48 Note Text: Radiology Service Progress Note DATE OF SERVICE: March 14, 2024 TIME: 8:45 AM PATIENT WEIGHT: 229LBS PATIENT IDENTITY VERIFICATION COMPLETED USING TWO (2) STANDARD IDENTIFIERS: Name and Date of confirmed by patient verbally and Name and Date of confirmed by identification band. FALL SCREENING: Has the patient had 2 falls in the last year or 1 fall with injury or currently using an Ambulatory Assistive Device (Walker, Cane, Wheelchair, Crutches, etc.)? No PATIENT GENDER DATA: Female. status: : No status: NO. ALLERGIES: Reviewed and unchanged CONTRAST ALLERGY: No EXAM: MRI - CONTRAST TYPE: GROUP II IV SITE: Ambulatory: A peripheral IV was started in the Right antecubital site with a Angio cath: 22 gauge. IV SITE APPEARANCE: Clean,Dry and Intact SIGNATURE: Flor Sanchez RN PATIENT NAME: Sarika Avila DATE: March 14, 2024 TIME: 8:45 AM [facility] 03-14-2024 History of Present illness Narrative Radiology Service Progress Note DATE OF SERVICE: March 14, 2024 TIME: 8:45 AM PATIENT WEIGHT: 229LBS PATIENT IDENTITY VERIFICATION COMPLETED USING TWO (2) STANDARD IDENTIFIERS: Name and Date of confirmed by patient verbally and Name and Date of confirmed by identification band. FALL SCREENING: Has the patient had 2 falls in the last year or 1 fall with injury or currently using an Ambulatory Assistive Device (Walker, Cane, Wheelchair, Crutches, etc.)? No PATIENT GENDER DATA: Female. status: : No status: NO. ALLERGIES: Reviewed and unchanged CONTRAST ALLERGY: No EXAM: MRI - CONTRAST TYPE: GROUP II IV SITE: Ambulatory: A peripheral IV was started in the Right antecubital site with a Angio cath: 22 gauge. IV SITE APPEARANCE: Clean,Dry and Intact SIGNATURE: Flor Sanchez RN PATIENT NAME: Sarika Avila DATE: March 14, 2024 TIME: 8:45 AM Radiology Service Progress Note PATIENT NAME: Sarika Avila DATE OF SERVICE: March 14, 2024 TIME: 9:28 AM PATIENT IDENTITY VERIFICATION COMPLETED USING TWO (2) IDENTIFIERS: Name and Date of confirmed by patient verbally and Name and Date of confirmed by identification band. FALL SCREENING: Has the patient had 2 falls in the last year or 1 fall with injury or currently using an Ambulatory Assistive Device (Walker, Cane, Wheelchair, Crutches, etc.)? No PATIENT GENDER DATA: Female. status: : No status: NO. PATIENT RELEVANT IMPLANT DATA REVIEWED: Yes PATIENT PRESENTS WITH AN IMPLANTABLE OR ATTACHED SHELLFISH BED WORKER: No RADIOLOGY DEPARTMENT: MR; Exam(s) Completed: Head: Multiple Sclerosis Spine: Cervical spine and Thoracic spine PERIPHERAL IV DATA: Site assessment: Clean,Dry and Intact, Site disposition Discontinued SIGNED BY: RT Aj(Que) March 14, 2024 9:28 AM documented in this encounter [facility] 03-14-2024 Note HNO ID: [id number] Author: DARLYN JERNIGAN RT(Que) Service: Radiology Author Type: Senior Electronics Design Engineer Type: Progress Notes Filed: 03/14/2024 09:29 Note Text: Radiology Service Progress Note PATIENT NAME: Sarika Avila DATE OF SERVICE: March 14, 2024 TIME: 9:28 AM PATIENT IDENTITY VERIFICATION COMPLETED USING TWO (2) IDENTIFIERS: Name and Date of confirmed by patient verbally and Name and Date of confirmed by identification band. FALL SCREENING: Has the patient had 2 falls in the last year or 1 fall with injury or currently using an Ambulatory Assistive Device (Walker, Cane, Wheelchair, Crutches, etc.)? No PATIENT GENDER DATA: Female. status: : No status: NO. PATIENT RELEVANT IMPLANT DATA REVIEWED: Yes PATIENT PRESENTS WITH AN IMPLANTABLE OR ATTACHED SHELLFISH BED WORKER: No RADIOLOGY DEPARTMENT: MR; Exam(s) Completed: Head: Multiple Sclerosis Spine: Cervical spine and Thoracic spine PERIPHERAL IV DATA: Site assessment: Clean,Dry and Intact, Site disposition Discontinued SIGNED BY: RT Aj(Que) March 14, 2024 9:28 AM [facility] 03-04-2024 Telephone encounter Note Questionnaire form has not been completed, will fax when done. [facility] 03-04-2024 Miscellaneous Notes Questionnaire form has not been completed, will fax when done. Name of caller: Devin Contact phone number: [phone] Relationship to Patient: Josseline Provider: Dr. Donovan Practice: [facility] Chief Complaint/Reason for Call: Devin states she is checking on the pre authorization for Botox and would like a return call with an update. Please review. Best time of day caller can be reached: any Patient advised that office/PCP has 24-48 business hours to return their call: Yes Noted. Name of caller: Isela Contact phone number: [phone] Relationship to Patient: Josseline/MMO Provider: Dr Donovan Practice: Neurology Chief Complaint/Reason for Call: Isela will be faxing a form that will need to be completed and faxed back with questions for review for a prior authorization for the Botox. Please be advised. Best time of day caller can be reached: Any Patient advised that office/PCP has 24-48 business hours to return their call: Yes documented in this encounter [facility] 03-03-2024 Telephone encounter Note Name of caller: Devin Contact phone number: [phone] Relationship to Patient: Josseline Provider: Dr. Donovan Practice: [facility] Chief Complaint/Reason for Call: Devin states she is checking on the pre authorization for Botox and would like a return call with an update. Please review. Best time of day caller can be reached: any Patient advised that office/PCP has 24-48 business hours to return their call: Yes [facility] 03-03-2024 Miscellaneous Notes Name of caller: Devin Contact phone number: [phone] Relationship to Patient: Josseline Provider: Dr. Donovan Practice: [facility] Chief Complaint/Reason for Call: Devin states she is checking on the pre authorization for Botox and would like a return call with an update. Please review. Best time of day caller can be reached: any Patient advised that office/PCP has 24-48 business hours to return their call: Yes Noted. Name of caller: Isela Contact phone number: [phone] Relationship to Patient: Josseline/EDO Provider: Dr Donovan Practice: Neurology Chief Complaint/Reason for Call: Kmai will be faxing a form that will need to be completed and faxed back with questions for review for a prior authorization for the Botox. Please be advised. Best time of day caller can be reached: Any Patient advised that office/PCP has 24-48 business hours to return their call: Yes documented in this encounter [facility] 02-23-2024 Telephone encounter Note Noted. [facility] 02-23-2024 Telephone encounter Note Name of caller: Isela Contact phone number: [phone] Relationship to Patient: Josseline/JENNIFER Provider: Dr Donovan Practice: Neurology Chief Complaint/Reason for Call: Kmai will be faxing a form that will need to be completed and faxed back with questions for review for a prior authorization for the Botox. Please be advised. Best time of day caller can be reached: Any Patient advised that office/PCP has 24-48 business hours to return their call: Yes [facility] 02-20-2024 History of Present illness Narrative DEPARTMENT OF NEUROLOGY BOTOX PROCEDURE NOTE FOR SPASTICITY Patient: Sarika Avila : 1970 Diagnosis: Spasticity [R25.2] Procedure: [...] Patient received Botox injections into the lower extremities. Patient will return to the neurology clinic in 3 months.Thank you [x] Pt tolerated procedure well. Pt advised to avoid exercise or strenuous physical activity for 24 hours. Post treatment expectations reviewed in detail. Luisito Donovan MD Administrations This Visit onabotulinumtoxin A (BOTOX) injection 300 Units Admin Date 02/20/2024 Action Given Dose 300 Units Route IntraMUSCular Site Other Administered By [facility] Ordering Provider: Luisito Donovan MD [facility]:[id number] [id number] Lot#: [id number] Premises Technician: Allergan Patient Supplied?: NO, buy and bill documented in this encounter [facility] 02-20-2024 History of Present illness Narrative DEPARTMENT OF NEUROLOGY BOTOX PROCEDURE NOTE FOR SPASTICITY Patient: Sarika Avila : 1970 Diagnosis: Spasticity [R25.2] Procedure: [...] Patient received Botox injections into the lower extremities. Patient will return to the neurology clinic in 3 months.patient reported that she is doing better and her spasticity have improved after Sarah injection. Patient have at least 60% improvement in the spasticity in the right lower extremity. her gait has improved. Patient also reports that she is sleep better because t controlling spasms in the right lower extremity. Patient denies any side effect from medication. THank you [x] Pt tolerated procedure well. Pt advised to avoid exercise or strenuous physical activity for 24 hours. Post treatment expectations reviewed in detail. Luisito Donovan MD Administrations This Visit onabotulinumtoxin A (BOTOX) injection 300 Units Admin Date 02/20/2024 Action Given Dose 300 Units Route IntraMUSCular Site Other Administered By [facility] [place] Ordering Provider: Luisito Donovan MD [facility]:[id number] [phone] Lot#: [id number] Premises Technician: Allergan Patient Supplied?: NO, buy and bill documented in this encounter [facility] 02-20-2024 Miscellaneous Notes Addended by: LUISITO DONOVAN on: 03/10/2024 10:26 AM Modules accepted: Orders documented in this encounter [facility] 02-20-2024 Note Addended by: LUISITO KATZ on: 03/10/2024 10:26 AM Modules accepted: Orders [facility] 02-11-2024 Instructions Ki Callahan MD - 02/11/2024 4:28 PM EDT -Please obtain and send in you records from your other MS doctors and neurologists, particularly related to past therapies so we can help determine what are the best -You will get an MRI with before your next visit in 3 months -Please call or message with any questions or concerns documented in this encounter [facility] 02-11-2024 History of Present illness Narrative Images from the original note were not included. [facility] FOLLOWUP/ESTABLISHED PATIENT VISIT DISEASE SUMMARY Date of onset: 1997 Date of diagnosis of MS: 2004 Disease course at onset: Relapsing-Remitting Current disease course: Relapsing-Remitting Previous disease therapies: - Copaxone - Ocrevus - Tysabri Current disease therapy: - Mavenclad (Cladribine, nucleotide analogue), 05/2021 and 08/2022 Most recent MRI brain: 10/20/2023 Most recent MRI cervical spine: 08/07/2023 CSF: 2004 (results not available for review) JCV serology result and date: Positive (per patient report) CHIEF COMPLAINT: Multiple Sclerosis INTERVAL HISTORY: Ms. Laxmi Avila is a 53yo woman with history of MS, NATHALIE, mood disorder who presents to [facility] for follow up. Pain is a significant concern. It is worse in her back. Taken off Celebrex due to worsening renal function. Tramadol did not provide satisfactory relief, and she wants to avoid opioids. States that she is having a relapse for the past two week, quality/pattern similar to prior. Mainly weakness in proximal leg muscles (R>>L) in the setting of increased pain. Difficulty rising from bed or toilet. Worsening with recent warm weather. No other clear triggers. Will have botox injection in bilateral LE at the end of this month. Is worried that that this will exacerbate above acute on chronic weakness Continues to have about one fall per week. Typically while hurrying and right leg will catch on floor. Has a leg brace and cane that uses intermittently. Restarting PT this month, felt like they were helpful in the past Increased urinary urgency, overflow inconstancies. Does not feel like a UTI. Continues to take Gemtesa, follows with urology and will have bladder injection end of March Mood is poor related to above concerns. Denies SI. EEG (11/2023) had no definite epileptiform discharge or EEG seizures. There were some sharp transients (L>R occipital) of unclear significance. MRI-brain (10/2022) grossly stable compared to 2019. Most recent Cr 1.7 (12/2023) Current Symptomatic Medications Gabapentin for pain Gemtesa for urinary incontinence Nuedexta, Wellbutrin, and Pristiq for depression INITIAL HPI SUMMARY: -Symptoms began in 1996, noted increased difficulty running -Diagnosed with MS in 2004 s/p fall. Diagnosed with transverse myelitis. MRI and LP supportive of diagnosis. Underwent pulse steroids with some improvement, started on DMT (Capaxone) -Switched to Ocrevus in 2016 after developing subclinical lesion -Later switched to Tsyabri due to recurrent PNA. Discontinued 02/2021 due to postive JCV serology -Subsequently started on Mavenclad with good initial reponse after initial survailence imaging -Expeirenced episode of loss of awareness in 08/2023. Recalls presyncope, tunnel vision, and whole-body trembling before passing out. 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 Boyfriend did not note any unusual behaviors over this peroid. --No changes in MDD medications (desvenlafaxine, bupropion, and Nuedexta). Used marijuana gummy that day but previously tolerated -Cardiac workup negative except noctural bradycardia. -Prior significant psych symptoms with steroids Usual treating team: Sebastian/Mihir The patient is unaccompanied. The patient was last seen 10/2023, currently taking Not on DMT. Since the patient's last visit the patient reports overall feeling worse. Issues with current therapy: Not currently on disease modifying therapy. Neuro-QoL Functions (higher=better functioning) Flowsheet Row Appointment from 02/11/2024 in [facility] Office Visit from 11/21/2023 in [facility] Upper Extremity Domain T Score 37 43 Lower Extremity Domain T Score 31 36 Cognitive Function Domain T Score 38 38 Positive Affect Well Being T Score -- -- Ability To Participate In Social Roles T Score 42 38 Satisfaction With Social Roles T Score 35 41 Neuro-QoL Symptoms (higher=worse symptoms) Flowsheet Row Appointment from 02/11/2024 in [facility] Office Visit from 11/21/2023 in [facility] Sleep Domain T Score 68 57 Fatigue Domain T Score 60 56 Anxiety Domain T Score 63 59 Depression Domain T Score 57 61 Stigma Domain T Score 59 61 Emotional Behavior Dyscontrol T Score -- -- has a past medical history of Aspiration pneumonia ([facility]), Asthma, Bradycardia, Chronic gastritis, Colon polyps, Depression, Diabetes ([facility]), Elevated blood pressure, Endometriosis, Foot drop, right foot, GERD (gastroesophageal reflux disease), H. pylori infection (2012), Hemorrhoids, Hiatal hernia, Hypothyroidism, IBS (irritable bowel syndrome), Migraine, and Multiple sclerosis ([facility]). has a current medication list which includes the following prescription(s): vibegron, mavenclad (10 tablet pack), acyclovir, desvenlafaxine er, nuedexta, fluticasone, gabapentin, losartan, triamterene-hydrochlorothiazide, bupropion xl, liraglutide, albuterol hfa, cyanocobalamin (vitamin b-12), hydrocortisone, miconazole, nystatin, folic acid, baclofen, vitamin d-3, esterified estrogens-methyltestosterone, modafinil, novofine 32, and levothyroxine. EXAM: BP 121/80 Pulse 76 Ht 160 cm (5' 3) Wt 103.9 kg (229 lb) SpO2 97% BMI 40.57 kg/m MSPT Results Flowsheet Row Office Visit from 11/21/2023 in [facility] Processing Speed Total Number Correct 53 Processing Speed Z score 0.66 Dominant hand Right hand MDT Left Hand Time 36.01 MDT Right Hand Time 32.33 Walking Speed Test (25 feet) 6.92 Hair, skin, nails, and joints were normal. Neck was supple without Lhermitte's phenomenon. There was no peripheral edema. The patient was alert and oriented to person, place, and time with normal language, attention and concentration, recent and remote memory, praxis, and intellectual function. Affect was normal. Visual acuity: Deferred. Ocular ductions were full without nystagmus or ataxia. Facial sensation was normal. Muscles of mastication and facial expression moved normally. Hearing was intact to finger rub bilaterally. Palatal movements were normal. Sternocleidomastoid and trapezius power were normal. Tongue movements were normal. There was no dysarthria. Motor Examination: Right Upper Extremity: Left Upper Extremity: Deltoid 5/5 Deltoid 5/5 Biceps 5/5 Biceps 5/5 Triceps 5/5 Triceps 5/5 Wrist extensors 5/5 Wrist extensors 5/5 Wrist flexors 5/5 Wrist flexors 5/5 Dorsal interossei 5/5 Dorsal interossei 5/5 Abductor pollicis 5/5 Abductor pollicis 5/5 Tone (Leana scale) 0 Tone (Leana scale) 0 Right Lower Extremity: Left Lower Extremity: Hip flexors 4+/5 Hip flexors 5/5 Hip extensors 5/5 Hip extensors 5/5 Knee flexors 5/5 Knee flexors 5/5 Knee extensors 5/5 Knee extensors 5/5 Dorsiflexors 4/5 Dorsiflexors 5/5 Plantarflexors 4/5 Plantarflexors 5/5 Tone (Leana scale) 0 Tone (Leana scale) 0 Reflexes: brachioradialis +++ > brachioradialis +++ biceps +++ > biceps +++ triceps ++ triceps ++ patellar +++ > patellar +++ Achilles ++ Achilles ++ Bowman's sign present Bowman's sign absent clonus absent clonus absent plantar response up plantar response equivocal Coordination testing in the arms and legs was performed including brces-uw-gaihn, rapid-alternating, and fine movements. Rapid movements were smooth with good nanette and there was no dysmetria or ataxia. No signs of cerebellar dysfunction. Sensory examination: Light touch: Normal all four extremities. Vibration: Diminished in the big toes bilaterally. Standard gait was notable for right leg circumduction and right foot drop. Impaired tandem gait. Able to rise from chair without use of arms. RESULTS: No results found for: WBC, HB, HCT, PLT, ABSLYMPH No results found for: VITD25 No results found for: AST, GLUC, BUN, CREAT, NA, K, CHLOR, ALT No results found for: JCVIND, JCVAB MRI Results: Discrete MRI Results Component Value Date Brain New T2 Lesions None 06/05/2020 Brain Enhancing Lesions None New T1 Dark Lesions 06/05/2020 I personally reviewed the following studies with Dr. Cortes: 08/07/2023 C-Spine: T2 lesions at C1, C2, and a posterior cord lesion at C5 characteristic of demyelinating disease. No abnormal enhancement. No interval change compared to 12/10/2022. 08/07/2023 MR Brain: Multiple periventricular lesions characteristic of MS. No abnormal enhancement. No interval change compared to 06/05/2020. ASSESSMENT/PLAN: Sarika Avila is a 53-year-old woman with relapsing MS who completed treatment with Mavenclad in August 2022. She presents for routine follow up. Ms. Avila endorses increased difficulty with proximal leg strength, increased urge incontinence, worsening generalized pain s/p stopping Celebrex due to worsening renal function, and worsening mood/cognition. Her current renal function and potential prior seizure with EEG showing R>L occipital sharps makes restarting Ampyra difficult - and unfortunately the patient felt that medication was highly effective. She is working with multiple providers to manage her above symptoms. 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 Working with PT and pain management will provide some relief. Repeat MRI before her next appointment would be useful to determine if there is radiologic progression since her second round of Mavenclad. PLAN: -Repeat MRI imaging for disease surveillance. MRI of the brain and/or spinal cord is being ordered to evaluate for efficacy of multiple sclerosis (MS) disease modifying therapy. Disease activity in MS is often not immediately detectable on history or examination, but is sensitively identified on MRI. If identified, new or active MS lesions on MRI may represent suboptimal response to MS therapy, and would change medical management. -Obtain outside records from [facility] Neurology provider (especially related to Mavenclad administration) -Repeat CMP (already scheduled), continue to work with nephrology -She will send me the images for her most recent MRI of the brain from 10/20/2023 ([facility]) -Continue PT locally -Continue Gemtesa for urinary incontinence, followed by urology -Continue to follow with Pain Management locally -Continue to follow with Psychiatry/Psychology locally -Follow up in 3 months Office Visit on 02/11/24 MRI BRAIN WO/W IVCON MRI CERVICAL SPINE WO/W IVCON MRI THORACIC SPINE WO/W IVCON Follow-up: In 3 months at [place] with [facility] Ki Callahan MD PhD PGY-2 Neurology Resident I have reviewed the note documented by Dr. Callahan, and I personally participated in the jordan components of the history and physical. I edited the note where appropriate, and I agree with the assessment and plan. I spent a total of 30 minutes on the date of the service which included preparing to see the patient, [id number] patient care, completing clinical documentation, obtaining and/or reviewing separately obtained history, performing a medically appropriate examination, counseling and educating the patient/family/caregiver. Lucia Cortes MD [facility] for Multiple Sclerosis documented in this encounter [facility] 02-11-2024 Note HNO ID: [id number] Author: LUCIA CORTES MD Service: ? Author Type: Physician Type: Progress Notes Filed: 02/29/2024 12:55 Note Text: [facility] FOLLOWUP/ESTABLISHED PATIENT VISIT DISEASE SUMMARY Date of onset: 1996 Date of diagnosis of MS: 2004 Disease course at onset: Relapsing-Remitting Current disease course: Relapsing-Remitting Previous disease therapies: - Copaxone - Ocrevus - Tysabri Current disease therapy: - Mavenclad (Cladribine, nucleotide analogue), 05/2021 and 08/2022 Most recent MRI brain: 10/20/2023 Most recent MRI cervical spine: 08/07/2023 CSF: 2004 (results not available for review) JCV serology result and date: Positive (per patient report) CHIEF COMPLAINT: Multiple Sclerosis INTERVAL HISTORY: Ms. Laxmi Avila is a 53yo woman with history of MS, NATHALIE, mood disorder who presents to [facility] for follow up. Pain is a significant concern. It is worse in her back. Taken off Celebrex due to worsening renal function. Tramadol did not provide satisfactory relief, and she wants to avoid opioids. States that she is having a relapse for the past two week, quality/pattern similar to prior. Mainly weakness in proximal leg muscles (R>>L) in the setting of increased pain. Difficulty rising from bed or toilet. Worsening with recent warm weather. No other clear triggers. Will have botox injection in bilateral LE at the end of this month. Is worried that that this will exacerbate above acute on chronic weakness Continues to have about one fall per week. Typically while hurrying and right leg will catch on floor. Has a leg brace and cane that uses intermittently. Restarting PT this month, felt like they were helpful in the past Increased urinary urgency, overflow inconstancies. Does not feel like a UTI. Continues to take Gemtesa, follows with urology and will have bladder injection end of March Mood is poor related to above concerns. Denies SI. EEG (11/2023) had no definite epileptiform discharge or EEG seizures. There were some sharp transients (L>R occipital) of unclear significance. MRI-brain (10/2022) grossly stable compared to 2019. Most recent Cr 1.7 (12/2023) Current Symptomatic Medications Gabapentin for pain Gemtesa for urinary incontinence Nuedexta, Wellbutrin, and Pristiq for depression INITIAL HPI SUMMARY: -Symptoms began in 1996, noted increased difficulty running -Diagnosed with MS in 2004 s/p fall. Diagnosed with transverse myelitis. MRI and LP supportive of diagnosis. Underwent pulse steroids with some improvement, started on DMT (Capaxone) -Switched to Ocrevus in 2016 after developing subclinical lesion -Later switched to Tsyabri due to recurrent PNA. Discontinued 02/2021 due to postive JCV serology -Subsequently started on Mavenclad with good initial reponse after initial survailence imaging -Expeirenced episode of loss of awareness in 08/2023. Recalls presyncope, tunnel vision, and whole-body trembling before passing out. 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 Boyfriend did not note any unusual behaviors over this peroid. --No changes in MDD medications (desvenlafaxine, bupropion, and Nuedexta). Used marijuana gummy that day but previously tolerated -Cardiac workup negative except noctural bradycardia. -Prior significant psych symptoms with steroids Usual treating team: Sebastian/Mihir The patient is unaccompanied. The patient was last seen 10/2023, currently taking Not on DMT. Since the patient's last visit the patient reports overall feeling worse. Issues with current therapy: Not currently on disease modifying therapy. Neuro-QoL Functions (higher=better functioning) Flowsheet Row Appointment from 02/11/2024 in [facility] Office Visit from 11/21/2023 in [facility] Upper Extremity Domain T Score 37 43 Lower Extremity Domain T Score 31 36 Cognitive Function Domain T Score 38 38 Positive Affect Well Being T Score -- -- Ability To Participate In Social Roles T Score 42 38 Satisfaction With Social Roles T Score 35 41 Neuro-QoL Symptoms (higher=worse symptoms) Flowsheet Row Appointment from 02/11/2024 in [facility] Office Visit from 11/21/2023 in [facility] Sleep Domain T Score 68 57 Fatigue Domain T Score 60 56 Anxiety Domain T Score 63 59 Depression Domain T Score 57 61 Stigma Domain T Score 59 61 Emotional Behavior Dyscontrol T Score -- -- has a past medical history of Aspiration pneumonia ([facility]), Asthma, Bradycardia, Chronic gastritis, Colon polyps, Depression, Diabetes ([facility]), Elevated blood pressure, Endometriosis, Foot drop, right foot, GERD (gastroesophageal reflux disease), H. pylori infection ([facility]), Hemorrhoids, Hiatal hernia, Hypothyroidism, IBS (irritable bowel syndrome), Migraine, and Multiple sclerosis ([facility]). has a current medication list which includes the following prescription(s): vibegron, mavenclad (10 tablet pack), acyclovir, desvenlafa (more content not included)... [facility] 01-23-2024 Telephone encounter Note This is a duplicate message and was combined with the later message on the same day. [facility] 01-23-2024 Miscellaneous Notes This is a duplicate message and was combined with the later message on the same day. documented in this encounter [facility] 01-23-2024 Telephone encounter Note Mobility and balance PT order was already placed today by PCP. PT order no longer needed from Dr. Cortes. [facility] 05-31-2024 Miscellaneous Notes Mobility and balance PT order was already placed today by PCP. PT order no longer needed from Dr. Cortes. documented in this encounter [facility] 01-08-2024 Note HNO ID: [id number] Author: MARIA DE JESUS CLEANING APRN.CNC MACHINE OPERATOR Service: ? Author Type: Nurse Practitioner Type: Progress Notes Filed: 01/08/2024 16:22 Note Text: AMBULATORY TELEPHONE VISIT Sarika Avila has consented to this telephone encounter. Persons Present: patient Chief Complaint/Reason: OAB HPI: She had been taking Myrbetriq which worked really well for OAB but insurance no longer covers so she is on Gemtesa. States Gemtesa does not work as well. She has issues with dribbling and UUI. History of MS. States recently blood work indicated CKD (GFR 34). Data Reviewed: Unable to review labs from [place] Assessment: (N32.81) OAB (overactive bladder) (primary encounter diagnosis) (N31.9) Neurogenic dysfunction of the urinary bladder (G35) MS (multiple sclerosis) (HCC) Plan: - Discussed 3rd line therapies at length. Patient would like to proceed with intradetrusor botox. Reviewed risks/benefits, including 5-6% of urinary retention. Cystoscopy and Botox orders placed. Total Time Spent: 24 minutes Maria De Jesus Cleaning APRN.CNC MACHINE OPERATOR [facility] 01-08-2024 Miscellaneous Notes Botox referral received for 100 units -- 1st injection. Added CPT codes to auth. Will monitor status. LV: 01/07 with Roberto Carlos Assessment: (N32.81) OAB (overactive bladder) (primary encounter diagnosis) (N31.9) Neurogenic dysfunction of the urinary bladder (G35) MS (multiple sclerosis) (HCC) Plan: - Discussed 3rd line therapies at length. Patient would like to proceed with intradetrusor botox. Reviewed risks/benefits, including 5-6% of urinary retention. Cystoscopy and Botox orders placed. Will schedule after Botox is approved. Amna Burrows RN January 08, 2024 5:00 PM documented in this encounter [facility] 01-08-2024 Telephone encounter Note Botox referral received for 100 units -- 1st injection. Added CPT codes to auth. Will monitor status. LV: 01/07 with Roberto Carlos Assessment: (N32.81) OAB (overactive bladder) (primary encounter diagnosis) (N31.9) Neurogenic dysfunction of the urinary bladder (G35) MS (multiple sclerosis) (HCC) Plan: - Discussed 3rd line therapies at length. Patient would like to proceed with intradetrusor botox. Reviewed risks/benefits, including 5-6% of urinary retention. Cystoscopy and Botox orders placed. Will schedule after Botox is approved. Amna Burrows RN January 08, 2024 5:00 PM [facility] 01-08-2024 History of Present illness Narrative AMBULATORY TELEPHONE VISIT Sarika Avila has consented to this telephone encounter. Persons Present: patient Chief Complaint/Reason: OAB HPI: She had been taking Myrbetriq which worked really well for OAB but insurance no longer covers so she is on Gemtesa. States Gemtesa does not work as well. She has issues with dribbling and UUI. History of MS. States recently blood work indicated CKD (GFR 34). Data Reviewed: Unable to review labs from [place] Assessment: (N32.81) OAB (overactive bladder) (primary encounter diagnosis) (N31.9) Neurogenic dysfunction of the urinary bladder (G35) MS (multiple sclerosis) (HCC) Plan: - Discussed 3rd line therapies at length. Patient would like to proceed with intradetrusor botox. Reviewed risks/benefits, including 5-6% of urinary retention. Cystoscopy and Botox orders placed. Total Time Spent: 24 minutes Maria De Jesus Cleaning APRN.CNC MACHINE OPERATOR documented in this encounter [facility] 12-31-2023 Telephone encounter Note Images from the original note were not included. Joselin Potts APRN.DARRIAN Ogi A81 Nurse [id number] minutes ago (12:57 PM) Please notify pt after reviewing drug information website, elevated GFR is not listed under adverse reactions. However, if pt is concerned she can stop the medication, specifically if it doesn't seem to be controlling her symptoms. The office should be reaching out to get her an appt to discuss Botox with the LUDLOW MACHINE OPERATOR. Thank you Phoned pt, verified name/ Gave msg above per Tiffanie Potts CNP Understanding voiced and appreciative of call. Joann Membreno RN [facility] 12-31-2023 Miscellaneous Notes Images from the original note were not included. Joselin Potts APRN.CNC MACHINE OPERATOR Ogi A81 Nurse [id number] minutes ago (12:57 PM) Please notify pt after reviewing drug information website, elevated GFR is not listed under adverse reactions. However, if pt is concerned she can stop the medication, specifically if it doesn't seem to be controlling her symptoms. The office should be reaching out to get her an appt to discuss Botox with the LUDLOW MACHINE OPERATOR. Thank you Phoned pt, verified name/ Gave msg above per Tiffanie Potts CNP Understanding voiced and appreciative of call. Joann Membreno RN S: Akash states she is taking Gemtesa and called to report lab results she had done at [facility]. States the only change she has had is taking Gemtesa. GFR went from 40 to 34. Urine protein 12.8 Urine creatinine 199 Blood creatinine 1.69 Update on urinary symptoms. Gemtesa does not work as well as Myrbetriq did. (Myrbetriq was too expensive.) She has had some episodes of incontinence. States both with urge and HUBER. States episodes seem to be increasing. States if appropriate, she would be interested in Botox if covered by insurance. B: SABINE 08/15/23 with Luz Parsons CNP: Reason for Appointment1. Uro/cysto and f/u2. MIPS Codes (normal)History of Present IllnessNew Urogyn Consult: 53 year old female presents with c/o Incontinence Has leakage with cough, laugh and sneezse, has leakage with urgency, wears pads, has tried physical therapy, has not tried dietary modifications. c/o Leaks with laugh/cough/sneeze She leaks with sneeze, She leaks with laugh., She leaks with cough. , She leaks with sex., She wears pads for this problem.. c/o Urge Leakage Patient reports , urgency of urination, urge incontinence, She wears pads for this problem., She has never tried OAB medications.. c/o Bowel symptoms has constipation, uses miralax, has trouble evacuating stool, has to splint to have a bowel movement. c/o Hysterectomy TVH. Denies : Burning with urination. Denies : Prolapse symptoms. Denies : Ever taken OAB medications?. Interim history: Patient presents today for urodynamics and cystoscopy and to determine a treatment plan. She has not tried taking Myrbetriq yet due to fear of allergic reaction and wanting to clarify with neurologist.Vital SignsBP: 112/72 mm Hg, Wt: 218 lbs, BMI: 38.61 Index, Ht: 63 in.ExaminationGeneral Examination: GENERAL APPEARANCE: alert, well hydrated, in no distress . EYES: BOTH EYES, sclera non-icteric, upper eyelids normal, lower eyelids normal. SKIN: no rashes, warm and dry, good turgor, no suspicious lesions. LUNGS: good air movement, no wheezes, rales, rhonchi. EXTREMITIES: no clubbing, cyanosis, or edema of digits and nails. PSYCH: alert, oriented, cognitive function intact, cooperative with exam, good eye contact, judgement and insight good. Assessments1. Urge incontinence - N39.41 (Primary)2. Female stress incontinence - N39.3We discussed the patient's options for her OAB which include expectant management, behavioral modification and bladder training, pelvic floor rehabilitation, anticholinergic medications, Myrbetriq (a B3 adrenergic agonist), or a combination of these treatment modalities. We also discussed the option of sacroneuromodulation (Interstim), UrgentPC or Intravesical Botox. We discussed the importance of decreasing/eliminating her caffeine intake to help improve her urgency and frequency. The patient was counseled on the importance of kegel exercises for urge control. She was given a handout on OAB, bladder training and pelvic floor exercises. No stress incontinence was seen on urodynamics today.Treatment1. Urge incontinence Continue Myrbetriq Tablet Extended Release 24 Hour, 50 MG, 1 tablet, Orally, Once a dayNotes: Educational handouts were given on OAB, pelvic floor exercises and bladder training. I also recommended she listen to the Girl Problems episode on OAB. Trial with Myrbetriq. Will reassess in 4 weeks. Discussed botox as option. She states she gets Botox 200 units injection every 90 days in lower extremities for muscle spascity. ProceduresCystoscopy: Consent: General procedure, indications, risks, benefits, alternative treatments, and expected outcomes have been discussed with this patient. She has had an opportunity to ask questions, and all questions have been answered by me. She verbalizes understanding, and to the best of my knowledge I feel the patient has been adequately informed and consented. The consent form has been signed.. Urethra: Normal. Urothelium: Normal. Ureteral jets, Left: Normal. Ureteral jets, Right: Normal. Glomerulations: None. Trabeculations: None. Ulcers: None. Calculi: None. Tumor: None. Biopsy: No. Post Procedure: All the instruments were removed from the patient. The patient tolerated the procedure well and was discharged from the office in good condition., . Urodynamics *: Procedure Informed consent was obtained , Uroflow performed , Patient was prepped and draped , Catheterization with 120 PVR done , Multichannel cystometrogram done after air-charged abdominal sensor catheter and air-charged duel sensor catheter and eletrode patches placed , Urethral pressure profile at leak point , voiding pressure flow done , all catheters and patches removed , pt to follow up with doctor for results , pt. tolerated procedure well. Urethral pressures Leak point pressure found to be NA, Bladder pressure found to be 152, Peak midurethral pressure found to be76. Urine loss No incontinence demo . Cystometrogram findings in supine position first sensation 25, First Desire 59, Strong Desire 234, Capacity 272. Detrusor instability Not seen. , pt initial pvr today during bladder testing was 120cc. she was filled at a med/slow rate to 272cc. pt did not have HUBER with cough no overactivity seen. at the end, pt voided 0cc final pvr was 300. pt tolerated well.Procedure [id number] PRES/ABSN URINE INCON [id number] CYSTOMETROGRAM W/WOOD WEB WEAVING MACHINE OPERATOR&[id number] ELECTRO-UROFLOWMETRY, [id number] URINE INCON PLAN [id number] BMI<30 AND >=22 CALC & [id number] INTRAABDOMINAL PRESSURE [id number] DOC MEDS VERIFIED W/PT OR [id number] PT NOT ID UNHLTHY ALC USR SCR ALC [id number] ANAL/URINARY MUSCLE [id number] NORMAL BP READING DOC F/U NOT [id number] Scrn singh perf rslts [id number] CYSTOSCOPYFollow Upprn A: Sending recent lab values, and inquiring if they may be related to taking Gemtesa. Also, more incontinence episodes. R: Informed I am forwarding her message to the nurse practitioners for review of recent labs. Informed at her July visit a 4 week follow up was recommended. Informed message being forwarded to schedulers to reach out and schedule an appointment with a nurse practitioner for future plans. Please review/advise Yenny Adames RN Patient called in stating she was originally on Myrbetriq (too expensive), and was then switched to Gemtesa. She recently had labs done and her GFR went from a 40 down to 34, and she was wondering if that is because of the medication. documented in this encounter [facility] 12-31-2023 Telephone encounter Note S: Akash states she is taking Gemtesa and called to report lab results she had done at [facility]. States the only change she has had is taking Gemtesa. GFR went from 40 to 34. Urine protein 12.8 Urine creatinine 199 Blood creatinine 1.69 Update on urinary symptoms. Gemtesa does not work as well as Myrbetriq did. (Myrbetriq was too expensive.) She has had some episodes of incontinence. States both with urge and HUBER. States episodes seem to be increasing. States if appropriate, she would be interested in Botox if covered by insurance. B: SABINE 08/15/23 with Luz Parsons CNP: Reason for Appointment1. Uro/cysto and f/u2. MIPS Codes (normal)History of Present IllnessNew Urogyn Consult: 53 year old female presents with c/o Incontinence Has leakage with cough, laugh and sneezse, has leakage with urgency, wears pads, has tried physical therapy, has not tried dietary modifications. c/o Leaks with laugh/cough/sneeze She leaks with sneeze, She leaks with laugh., She leaks with cough. , She leaks with sex., She wears pads for this problem.. c/o Urge Leakage Patient reports , urgency of urination, urge incontinence, She wears pads for this problem., She has never tried OAB medications.. c/o Bowel symptoms has constipation, uses miralax, has trouble evacuating stool, has to splint to have a bowel movement. c/o Hysterectomy TVH. Denies : Burning with urination. Denies : Prolapse symptoms. Denies : Ever taken OAB medications?. Interim history: Patient presents today for urodynamics and cystoscopy and to determine a treatment plan. She has not tried taking Myrbetriq yet due to fear of allergic reaction and wanting to clarify with neurologist.Vital SignsBP: 112/72 mm Hg, Wt: 218 lbs, BMI: 38.61 Index, Ht: 63 in.ExaminationGeneral Examination: GENERAL APPEARANCE: alert, well hydrated, in no distress . EYES: BOTH EYES, sclera non-icteric, upper eyelids normal, lower eyelids normal. SKIN: no rashes, warm and dry, good turgor, no suspicious lesions. LUNGS: good air movement, no wheezes, rales, rhonchi. EXTREMITIES: no clubbing, cyanosis, or edema of digits and nails. PSYCH: alert, oriented, cognitive function intact, cooperative with exam, good eye contact, judgement and insight good. Assessments1. Urge incontinence - N39.41 (Primary)2. Female stress incontinence - N39.3We discussed the patient's options for her OAB which include expectant management, behavioral modification and bladder training, pelvic floor rehabilitation, anticholinergic medications, Myrbetriq (a B3 adrenergic agonist), or a combination of these treatment modalities. We also discussed the option of sacroneuromodulation (Interstim), UrgentPC or Intravesical Botox. We discussed the importance of decreasing/eliminating her caffeine intake to help improve her urgency and frequency. The patient was counseled on the importance of kegel exercises for urge control. She was given a handout on OAB, bladder training and pelvic floor exercises. No stress incontinence was seen on urodynamics today.Treatment1. Urge incontinence Continue Myrbetriq Tablet Extended Release 24 Hour, 50 MG, 1 tablet, Orally, Once a dayNotes: Educational handouts were given on OAB, pelvic floor exercises and bladder training. I also recommended she listen to the Girl Problems episode on OAB. Trial with Myrbetriq. Will reassess in 4 weeks. Discussed botox as option. She states she gets Botox 200 units injection every 90 days in lower extremities for muscle spascity. ProceduresCystoscopy: Consent: General procedure, indications, risks, benefits, alternative treatments, and expected outcomes have been discussed with this patient. She has had an opportunity to ask questions, and all questions have been answered by me. She verbalizes understanding, and to the best of my knowledge I feel the patient has been adequately informed and consented. The consent form has been signed.. Urethra: Normal. Urothelium: Normal. Ureteral jets, Left: Normal. Ureteral jets, Right: Normal. Glomerulations: None. Trabeculations: None. Ulcers: None. Calculi: None. Tumor: None. Biopsy: No. Post Procedure: All the instruments were removed from the patient. The patient tolerated the procedure well and was discharged from the office in good condition., . Urodynamics *: Procedure Informed consent was obtained , Uroflow performed , Patient was prepped and draped , Catheterization with 120 PVR done , Multichannel cystometrogram done after air-charged abdominal sensor catheter and air-charged duel sensor catheter and eletrode patches placed , Urethral pressure profile at leak point , voiding pressure flow done , all catheters and patches removed , pt to follow up with doctor for results , pt. tolerated procedure well. Urethral pressures Leak point pressure found to be NA, Bladder pressure found to be 152, Peak midurethral pressure found to be76. Urine loss No incontinence demo . Cystometrogram findings in supine position first sensation 25, First Desire 59, Strong Desire 234, Capacity 272. Detrusor instability Not seen. , pt initial pvr today during bladder testing was 120cc. she was filled at a med/slow rate to 272cc. pt did not have HUBER with cough no overactivity seen. at the end, pt voided 0cc final pvr was 300. 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 Also, more incontinence episodes. R: Informed I am forwarding her message to the nurse practitioners for review of recent labs. Informed at her July visit a 4 week follow up was recommended. Informed message being forwarded to schedulers to reach out and schedule an appointment with a nurse practitioner for future plans. Please review/advise Yenny Adames RN T [facility] 12-31-2023 Telephone encounter Note Patient called in stating she was originally on Myrbetriq (too expensive), and was then switched to Gemtesa. She recently had labs done and her GFR went from a 40 down to 34, and she was wondering if that is because of the medication. [facility] 12-18-2023 Telephone encounter Note Message forwarded to [facility] provider for review. [facility] 12-18-2023 Miscellaneous Notes Message forwarded to [facility] provider for review. documented in this encounter [facility] 11-26-2023 Miscellaneous Notes This message was addressed in a separate encounter from this day. documented in this encounter [facility] 11-21-2023 Instructions Lucia Cortes MD - 11/21/2023 10:08 AM EDT Schedule an EEG. Send me the images for your most recent MRI of the brain from 10/20/2023 ([facility]). We will decide what to do with your Ampyra based on the results of your EEG. We also need your kidney function to be better before restarting the medication. At your next Pain Clinic appointment, discuss alternatives to Celebrex. Restart PT. documented in this encounter [facility] 11-21-2023 History of Present illness Narrative Images from the original note were not included. [facility] NEW PATIENT EVALUATION/CONSULTATION Referral source: No referring provider defined for this encounter. Also followed by: Patient Care Team: Annita Escobedo DO as PCP - General (Family Medicine) PRINCIPAL NEUROLOGIC DIAGNOSIS: Multiple Sclerosis DISEASE SUMMARY Date of onset: 1996 Date of diagnosis of MS: 2004 Disease course at onset: Relapsing-Remitting Current disease course: Relapsing-Remitting Previous disease therapies: - Copaxone - Ocrevus - Tysabri Current disease therapy: - Mavenclad Most recent MRI brain: 10/20/2023 Most recent MRI cervical spine: 08/07/2023 CSF: 2004 (results not available for review) JCV serology result and date: Positive (per patient report) HISTORY OF ILLNESS: An opinion on this 53-year-old right-handed woman was requested by the referring physician to establish care for MS. The patient was unaccompanied. Previous records (physician notes, laboratory reports, and radiology reports) and imaging studies were reviewed and summarized. My recommendations will be communicated back to the patient's physician(s) by mail. Follow-up is expected to be with me at the [facility]. Ms. Avila first presented with relapsing symptoms beginning in 1996. While at the [employer], she noticed difficulty running during training. She was diagnosed with MS in 2004 after a fall, based on MRI imaging and the results of a spinal tap. She was treated with a course of high-dose steroids for transverse myelitis with some improvement and started on Copaxone for treatment. In 2016, after developing a new lesion on the brainstem, she switched to Ocrevus. After a couple of years, she switched to Tsyabri, due to the development of recurrent pneumonia (3 times) and a collapsed long. In February 2021, she had a positive JCV serology, and Tysabri was discontinued. She initially underwent pretesting for Lemtrada, but ultimately started Mavenclad instead. She finished her second-week second-year course of treatment in August 2022. Repeat MRI imaging has been stable since staring Mavenclad. She primarily presents for further evaluation of an episode of missing time in August 2023. 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 She eventually passed out on her kitchen floor. She has no memory of the following 3 days, despite working full-time. She also lives with her boyfriend, who did not notice anything out of the ordinary. She has a history of MDD, and was taking desvenlafaxine, bupropion, and Nuedexta at the time, but there were no changes to her psychotropic medication regimen around the time of the event. Nuedexta was the last medication added, approximately 6 months prior. She also has a medical marijuana license and took a gummy that day, but has used medical marijuana in the past without issues. She continues to struggle with anhedonia and angry outbursts and is working with psychiatry to further adjust her treatment regimen. She was recently taken off Ampyra in the setting of DIEGO (potentially due to NSAID use for chronic pain) and due to concern for a possible seizure. Since stopping Ampyra, her symptoms of difficulty walking, urinary frequency, and sexual dysfunction have gotten worse. She's also has had an extensive cardiac work up, including long-term EKG monitoring, with no definite etiology for her symptoms, but she is noted to have bradycardia overnight into the high 30s. Her history is also significant for NATHALIE, currently not on CPAP. Her CPAP machine was taken away in the past due to issues with compliance, but that was in part related to chronic pain. PMHx Obstructive sleep apnea Bradycardia DIEGO Macrocytosis Current Symptomatic Medications Celebrex for pain Gabapentin for pain Gemtesa for urinary incontinence Nuedexta, Wellbutrin, and Pristiq for depression Neuro-QoL Functions (higher=better functioning) Flowsheet Row Appointment from 11/21/2023 in [facility] Upper Extremity Domain T Score 43 Lower Extremity Domain T Score 36 Cognitive Function Domain T Score 38 Positive Affect Well Being T Score -- Ability To Participate In Social Roles T Score 38 Satisfaction With Social Roles T Score 41 Neuro-QoL Symptoms (higher=worse symptoms) Flowsheet Row Appointment from 11/21/2023 in [facility] Sleep Domain T Score 57 Fatigue Domain T Score 56 Anxiety Domain T Score 59 Depression Domain T Score 61 Stigma Domain T Score 61 Emotional Behavior Dyscontrol T Score -- PAST HISTORY: has a past medical history of Aspiration pneumonia (), Asthma, Bradycardia, Chronic gastritis, Colon polyps, Depression, Diabetes (), Elevated blood pressure, Endometriosis, Foot drop, right foot, GERD (gastroesophageal reflux disease), H. pylori infection (2012), Hemorrhoids, Hiatal hernia, Hypothyroidism, IBS (irritable bowel syndrome), Migraine, and Multiple sclerosis (). has a past surgical history that includes total abdominal hysterect w/wo rmvl tube ovary; laps abd prtm&omentum dx w/wo spec br/wa spx; laparoscopy surg cholecystectomy (2013); tonsillectomy primary/secondary <age 11; past surgical history of; colonoscopy (06/17/2014); egd (2012); egd (12/30/2017); and colonoscopy (01/12/2018). has a current medication list which includes the following prescription(s): vibegron, mavenclad (10 tablet pack), acyclovir, desvenlafaxine er, nuedexta, fluticasone, gabapentin, losartan, triamterene-hydrochlorothiazide, bupropion xl, liraglutide, albuterol hfa, cyanocobalamin (vitamin b-12), hydrocortisone, miconazole, nystatin, folic acid, baclofen, vitamin d-3, esterified estrogens-methyltestosterone, modafinil, novofine 32, and levothyroxine. Social History Tobacco Use Smoking status: Former Types: Cigarettes Quit date: 2020 Years since quittin.2 Smokeless tobacco: Never family history includes Crohn's disease in her sister; Heart disease in her maternal grandmother; Hypertension in her maternal grandmother; Stroke in her maternal grandmother; sudden cardiac in her maternal grandmother. PHYSICAL EXAM: BP 130/64 Pulse (!) 54 Ht 160 cm (5' 3) Wt 103.9 kg (229 lb) BMI 40.57 kg/m Hair, skin, nails, and joints were normal. Neck was supple without Lhermitte's phenomenon. There was no peripheral edema. The patient was alert and oriented to person, place, and time with normal language, attention and concentration, recent and remote memory, praxis, and intellectual function. Affect was normal. Visual acuity: Deferred. Ocular ductions were full without nystagmus or ataxia. Facial sensation was normal. Muscles of mastication and facial expression moved normally. Hearing was intact to finger rub bilaterally. Palatal movements were normal. Sternocleidomastoid and trapezius power were normal. Tongue movements were normal. There was no dysarthria. Motor Examination: Right Upper Extremity: Left Upper Extremity: Deltoid 5/5 Deltoid 5/5 Biceps 5/5 Biceps 5/5 Triceps 5/5 Triceps 5/5 Wrist extensors 5/5 Wrist extensors 5/5 Wrist flexors 5/5 Wrist flexors 5/5 Dorsal interossei 5/5 Dorsal interossei 5/5 Abductor pollicis 5/5 Abductor pollicis 5/5 Tone (Leana scale) 0 Tone (Leana scale) 0 Right Lower Extremity: Left Lower Extremity: Hip flexors 5/5 Hip flexors 5/5 Hip extensors 5/5 Hip extensors 5/5 Knee flexors 5/5 Knee flexors 5/5 Knee extensors 5/5 Knee extensors 5/5 Dorsiflexors 4/5 Dorsiflexors 5/5 Plantarflexors 4/5 Plantarflexors 5/5 Tone (Leana scale) 0 Tone (Leana scale) 0 Reflexes: brachioradialis +++ > brachioradialis +++ biceps +++ > biceps +++ triceps ++ triceps ++ patellar +++ > patellar +++ Achilles ++ Achilles ++ Bowman's sign present Bowman's sign absent clonus absent clonus absent plantar response up plantar response equivocal Coordination testing in the arms and legs was performed including [id number], rapid-alternating, and fine movements. Rapid movements were smooth with good nanette and there was no dysmetria or ataxia. No signs of cerebellar dysfunction. Sensory examination: Light touch: Normal all four extremities. Vibration: Diminished in the big toes bilaterally. Standard gait was notable for right leg circumduction and right foot drop. Impaired tandem gait. REVIEW OF RECORDS: Electronic medical records reviewed. Pertinent information included in the HPI. REVIEW OF IMAGING STUDIES: 08/07/2023 C-Spine: T2 lesions at C1, C2, and a posterior cord lesion at C5 characteristic of demyelinating disease. No abnormal enhancement. No interval change compared to 12/10/2022. 08/07/2023 MR Brain: Multiple periventricular lesions characteristic of MS. No abnormal enhancement. No interval change compared to 06/05/2020. ASSESSMENT: Sarika Avila is a 53-year-old woman with relapsing MS currently on treatment with Mavenclad, who presents to establish care and for further evaluation after an episode of missing time in August 2023. Given the prolonged time course (days) and lack of witnessed behavioral changes at work or home, I have a lower suspicion for seizure, but we will get additional testing with a prolonged EEG. She also needs recovery of renal function before considering restarting Ampyra. Alternative etiologies include psychogenic amnesia or amnesia due to side effects from the medications she was taking. PLAN: Prolonged EEG. Will need improved kidney function before resuming Ampyra. She will send me the images for her most recent MRI of the brain from 10/20/2023 ([facility]). Resume PT locally. Continue Gemtesa for urinary incontinence. Continue to follow with Pain Management locally. Continue to follow with Psychiatry locally. Office Visit on 11/21/23 EPIL EEG LONG By signing my name below, I, Doe Patel, attest that this documentation has been prepared under the direction and in presence of Dr. Lucia Cortes Electronically signed, Luca Schmitz, November 21, 2023 10:44 AM I have personally seen and examined the patient and performed the medical-decision making components. I have reviewed the Doe Patel documentation and verified the findings in the note as written. I spent a total of 75 minutes on the date of the service which included preparing to see the patient, [id number] patient care, completing clinical documentation, obtaining and/or reviewing separately obtained history, performing a medically appropriate examination, counseling and educating the patient/family/caregiver, and ordering medications, tests, or procedures. Lucia Cortes MD [facility] November 21, 2023 10:44 AM documented in this encounter [facility] 11-21-2023 Note HNO ID: [id number] Author: ?, ?, ? Service: ? Author Type: ? Type: Progress Notes Filed: 11/25/2023 09:57 Note Text: [facility] NEW PATIENT EVALUATION/CONSULTATION Referral source: No referring provider defined for this encounter. Also followed by: Patient Care Team: Annita Escobedo DO as PCP - General (Family Medicine) PRINCIPAL NEUROLOGIC DIAGNOSIS: Multiple Sclerosis DISEASE SUMMARY Date of onset: 1996 Date of diagnosis of MS: 2004 Disease course at onset: Relapsing-Remitting Current disease course: Relapsing-Remitting Previous disease therapies: - Copaxone - Ocrevus - Tysabri Current disease therapy: - Mavenclad Most recent MRI brain: 10/20/2023 Most recent MRI cervical spine: 08/07/2023 CSF: 2004 (results not available for review) JCV serology result and date: Positive (per patient report) HISTORY OF ILLNESS: An opinion on this 53-year-old right-handed woman was requested by the referring physician to establish care for MS. The patient was unaccompanied. Previous records (physician notes, laboratory reports, and radiology reports) and imaging studies were reviewed and summarized. My recommendations will be communicated back to the patient's physician(s) by mail. Follow-up is expected to be with me at the [facility]. Ms. Avila first presented with relapsing symptoms beginning in 1996. While at the [employer], she noticed difficulty running during training. She was diagnosed with MS in 2004 after a fall, based on MRI imaging and the results of a spinal tap. She was treated with a course of high-dose steroids for transverse myelitis with some improvement and started on Copaxone for treatment. In 2016, after developing a new lesion on the brainstem, she switched to Ocrevus. After a couple of years, she switched to Tsyabri, due to the development of recurrent pneumonia (3 times) and a collapsed long. In February 2021, she had a positive JCV serology, and Tysabri was discontinued. She initially underwent pretesting for Lemtrada, but ultimately started Mavenclad instead. She finished her second-week second-year course of treatment in August 2022. Repeat MRI imaging has been stable since staring Mavenclad. She primarily presents for further evaluation of an episode of missing time in August 2023. 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 She eventually passed out on her kitchen floor. She has no memory of the following 3 days, despite working full-time. She also lives with her boyfriend, who did not notice anything out of the ordinary. She has a history of MDD, and was taking desvenlafaxine, bupropion, and Nuedexta at the time, but there were no changes to her psychotropic medication regimen around the time of the event. Nuedexta was the last medication added, approximately 6 months prior. She also has a medical marijuana license and took a gummy that day, but has used medical marijuana in the past without issues. She continues to struggle with anhedonia and angry outbursts and is working with psychiatry to further adjust her treatment regimen. She was recently taken off Ampyra in the setting of DIEGO (potentially due to NSAID use for chronic pain) and due to concern for a possible seizure. Since stopping Ampyra, her symptoms of difficulty walking, urinary frequency, and sexual dysfunction have gotten worse. She's also has had an extensive cardiac work up, including long-term EKG monitoring, with no definite etiology for her symptoms, but she is noted to have bradycardia overnight into the high 30s. Her history is also significant for NATHALIE, currently not on CPAP. Her CPAP machine was taken away in the past due to issues with compliance, but that was in part related to chronic pain. PMHx Obstructive sleep apnea Bradycardia DIEGO Macrocytosis Current Symptomatic Medications Celebrex for pain Gabapentin for pain Gemtesa for urinary incontinence Nuedexta, Wellbutrin, and Pristiq for depression Neuro-QoL Functions (higher=better functioning) Flowsheet Row Appointment from 11/21/2023 in [facility] Upper Extremity Domain T Score 43 Lower Extremity Domain T Score 36 Cognitive Function Domain T Score 38 Positive Affect Well Being T Score -- Ability To Participate In Social Roles T Score 38 Satisfaction With Social Roles T Score 41 Neuro-QoL Symptoms (higher=worse symptoms) Flowsheet Row Appointment from 11/21/2023 in [facility] Sleep Domain T Score 57 Fatigue Domain T Score 56 Anxiety Domain T Score 59 Depression Domain T Score 61 Stigma Domain T Score 61 Emotional Behavior Dyscontrol T Score -- PAST HISTORY: has a past medical history of Aspiration pneumonia ([facility]), Asthma, Bradycardia, Chronic gastritis, Colon polyps, Depression, Diabetes ([facility]), Elevated blood pressure, Endometriosis, Foot dr (more content not included)... [facility] 11-21-2023 History of Present illness Narrative DEPARTMENT OF NEUROLOGY BOTOX PROCEDURE NOTE FOR SPASTICITY Patient: Sarika Avila : 1970 Diagnosis: Spasticity [R25.2] Procedure: [...] Patient received Botox injections into the lower extremities. Patient will return to the neurology clinic in 3 months.Thank you [x] Pt tolerated procedure well. Pt advised to avoid exercise or strenuous physical activity for 24 hours. Post treatment expectations reviewed in detail. LUISITO DONOVAN MD Administrations This Visit onabotulinumtoxin A (BOTOX) injection 300 Units Admin Date 11/21/23 Action Given Dose 300 Units Route IntraMUSCular Site Other Administered By LUISITO DONOVAN MD Ordering Provider: LUISITO DONOVAN MD [facility] [place]: [id number] Lot#: [id number] Premises Technician: [employer] Patient Supplied?: No documented in this encounter [facility] 11-03-2023 Miscellaneous Notes Gemtesa 75mg daily sent into pharmacy on 10/31/23. Confirmed with refills. The following approved medication requests have been transmitted electronically. Requested Prescriptions Signed Prescriptions Disp Refills vibegron (GEMTESA) 75 mg tablet 30 tablet 5 Sig: Take 1 tablet by mouth once daily. Authorizing Provider: LUZ PARSONS APRN.CNC MACHINE OPERATOR Called patient, verified by name and date of . Gemtesa and Trospium are the medications, similar to Myrbetriq, that the patient's insurance would cover. Patient is asking for a prescription for one of these medications to be sent to her [facility] pharmacy in [place]. Advised we will forward her request to her provider for further review. Patient verbalizes understanding and has no further questions at this time. Ashley Ndiaye RN [facility] 08/15/2023 Luz Parsons APRN.CNC MACHINE OPERATOR: Assessments 1. Urge incontinence - N39.41 (Primary) 2. Female stress incontinence - N39.3 We discussed the patient's options for her OAB which include expectant management, behavioral modification and bladder training, pelvic floor rehabilitation, anticholinergic medications, Myrbetriq (a B3 adrenergic agonist), or a combinat ion of these treatment modalities. We also discussed the option of sacroneuromodulation (Interstim), UrgentPC or Intravesical Botox. We discussed the importance of decreasing/eliminating her caffeine intake to help improve her urgency and frequency. The patient was counseled on the importance of kegel exercises for urge control. She was given a handout on OAB, bladder training and pelvic floor exercises. No stress incontinence was seen on urodynamics today. Treatment 1. Urge incontinence Continue Myrbetriq Tablet Extended Release 24 Hour, 50 MG, 1 tablet, Orally, Once a day Notes: Educational handouts were given on OAB, pelvic floor exercises and bladder training. I also recommended she listen to the Girl Problems episode on OAB. Trial with Myrbetriq. Will reassess in 4 weeks. Discussed botox as option. She states she gets Botox 200 units injection every 90 days in lower extremities for muscle spascity. Pt called back and said that Gemtesa and Trospium are both covered meds. She does not care which one is sent in, but would prefer something similar to Myrbetriq if possible since that worked well for her (but isn't covered). Thank you! Called pt; verified name/. Advised pt that she should call her insurance company to ask what alternatives they would cover, then let us know. Pt has tried oxybutynin in past; says it gave her bad headaches. Pt says she's almost out of her Myrbetriq samples. RN advised pt that I'd see if we can offer her more. SABINE - Luz Parsons [facility] 08/15/23 Reason for Appointment 1. Uro/cysto and f/u 2. MIPS Codes (normal) History of Present Illness New Urogyn Consult: 53 year old female presents with c/o Incontinence Has leakage with cough, laugh and sneezse, has leakage with urgency, wears pads, has tried physical therapy, has not tried dietary modifications. c/o Leaks with laugh/cough/sneeze She leaks with sneeze, She leaks with laugh., She leaks with cough. , She leaks with sex., She wears pads for this problem.. c/o Urge Leakage Patient reports , urgency of urination, urge incontinence, She wears pads for this problem., She has never tried OAB medications.. c/o Bowel symptoms has constipation, uses miralax, has trouble evacuating stool, has to splint to have a bowel movement. c/o Hysterectomy TVH. Denies : Burning with urination. Denies : Prolapse symptoms. Denies : Ever taken OAB medications?. Interim history: Patient presents today for urodynamics and cystoscopy and to determine a treatment plan. She has not tried taking Myrbetriq yet due to fear of allergic reaction and wanting to clarify with neurologist. Assessments 1. Urge incontinence - N39.41 (Primary) 2. Female stress incontinence - N39.3 We discussed the patient's options for her OAB which include expectant management, behavioral modification and bladder training, pelvic floor rehabilitation, anticholinergic medications, Myrbetriq (a B3 adrenergic agonist), or a combinat ion of these treatment modalities. We also discussed the option of sacroneuromodulation (Interstim), UrgentPC or Intravesical Botox. We discussed the importance of decreasing/eliminating her caffeine intake to help improve her urgency and frequency. The patient was counseled on the importance of kegel exercises for urge control. She was given a handout on OAB, bladder training and pelvic floor exercises. No stress incontinence was seen on urodynamics today. Treatment 1. Urge incontinence Continue Myrbetriq Tablet Extended Release 24 Hour, 50 MG, 1 tablet, Orally, Once a day Notes: Educational handouts were given on OAB, pelvic floor exercises and bladder training. I also recommended she listen to the Girl Problems episode on OAB. Trial with Myrbetriq. Will reassess in 4 weeks. Discussed botox as option. She states she gets Botox 200 units injection every 90 days in lower extremities for muscle spascity. Procedures Cystoscopy: Consent: General procedure, indications, risks, benefits, alternative treatments, and expected outcomes have been discussed with this patient. She has had an opportunity to ask questions, and all questions have been answered by me. She verbalizes understanding, and to the best of my knowledge I feel the patient has been adequately informed and consented. The consent form has been signed.. Urethra: Normal. Urothelium: Normal. Ureteral jets, Left: Normal. Ureteral jets, Right: Normal. Glomerulations: None. Trabeculations: None. Ulcers: None. Calculi: None. Tumor: None. Biopsy: No. Post Procedure: All the instruments were removed from the patient. The patient tolerated the procedure well and was discharged from the office in good condition., . Urodynamics *: Procedure Informed consent was obtained , Uroflow performed , Patient was prepped and draped , Catheterization with 120 PVR done , Multichannel cystometrogram done after air-charged abdominal sensor catheter and air-charged duel sensor catheter and eletrode patches placed , Urethral pressure profile at leak point , voiding pressure flow done , all catheters and patches removed , pt to follow up with doctor for results , pt. tolerated procedure well. Urethral pressures Leak point pressure found to be NA, Bladder pressure found to be 152, Peak midurethral pressure found to be76. Urine loss No incontinence demo . Cystometrogram findings in supine position first sensation 25, First Desire 59, Strong Desire 234, Capacity 272. Detrusor instability Not seen. , pt initial pvr today during bladder testing was 120cc. she was filled at a med/slow rate to 272cc. pt did not have HUBER with cough no overactivity seen. at the end, pt voided 0cc final pvr was 300. pt tolerated well. Radha Cadet RN October 30, 2023 3:55 PM Pt called stating that she was given samples of Myrbetriq and it is working well for her. However, a rx was sent in to her pharmacy but her insurance is denying paying for it. She wants to know what she should do. Pt can be reached at [phone]. documented in this encounter [facility] 10-31-2023 Miscellaneous Notes Chart reviewed. Gemtesa rx sent but it says this med is not covered. Maria De Jesus Cleaning APRN.CNP Pt willing to try Gemtesa or Trospium. Pharmacy sent request for Gemtesa since Myrbetriq not covered by insurance. Ml Whittington RT 10/30/23 4:10 PM Note Pt called back and said that Gemtesa and Trospium are both covered meds. She does not care which one is sent in, but would prefer something similar to Myrbetriq if possible since that worked well for her (but isn't covered). Thank you! Routing to Uro/Panelbeater LUDLOW MACHINE OPERATOR Pool. Whitley Lyman RN October 31, 2023 3:59 PM documented in this encounter [facility] 10-27-2023 Miscellaneous Notes Scanned labs reviewed. Myrbetriq rx sent. Maria De Jesus Cleaning APRN.CNP Medication requested: mirabegron (MYRBETRIQ) 50 mg Tb24 Patient sent over the results of her lab work for review. Labs are under scanned documents. Myrbetriq refill pended for after review. Ashley Ndiaye RN Patient sent recent labs (drawn 10/06/2023) and wanted to know does she need to get the labs done Dr. Jamison is wanting since it appears they may be similar. documented in this encounter [facility] 10-24-2023 Miscellaneous Notes Pt returning call to the nurse. Attempted to call pt. [facility] for pt to call office. Daisy Bhatti RN October 24, 2023 10:38 AM Has she had any blood work recently to check kidney and liver function while on Myrbetriq? Last blood work I see is 2019. Recommend a CMP if she hasn't had that done in awhile. CMP ordered. Also, it appears a PA will need to be completed for Myrbetriq. Is she completely out of medication? Maria De Jesus Cleanign APRN.CNC MACHINE OPERATOR Called pt. Verified name/ Verified pharmacy. [facility] Pt states myrbetriq is working well, the first time in years she has gotten relief. SABINE 07/22/2023 ASSESSMENTS ASSESSMENTS Encounter Date Diagnosis Assessment Notes Treatment Notes Treatment Clinical Notes 07/22/2023 Urge incontinence (ICD-10 - N39.41) Educational handouts were given on OAB, pelvic floor exercises and bladder training. I also recommended she listen to the Girl Problems episode on OAB. Trial with meds. gave samples. 07/22/2023 Female stress incontinence (ICD-10 - N39.3) She was given an educational handout on stress incontinence. PLAN OF TREATMENT Medication PLAN OF TREATMENT Medication Name Sig Start Date Stop Date Notes Myrbetriq 50 MG 1 tablet Orally Once a day for 30 day(s) 07/22/2023 Treatment Notes PLAN OF TREATMENT Assessment Notes Urge incontinence Educational handouts were given on OAB, pelvic floor exercises and bladder training. I also recommended she listen to the Girl Problems episode on OAB. Trial with meds. gave samples. Female stress incontinence She was given an educational handout on stress incontinence. 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 Whitley Lyman RN October 23, 2023 4:35 PM Pt called requesting a rx of Myrbetriq to be sent to her pharmacy. She was previously given samples. She can be reached at [phone]. documented in this encounter [facility] 10-08-2023 Note HNO ID: [id number] Author: AURA DENNISON MD Service: ? Author Type: Physician Type: Progress Notes Filed: 10/08/2023 11:21 Note Text: NEUROSURGERY CONSULT NOTE Aura Dennison MD Chair, Clinical Neurosciences Director, Spinal Neurosurgery [facility] Date of visit: October 08, 2023 Patient Name: Ms.Kimberly Harper Avila Date of : 1970 Current Age: [age] year old Sex: female MRN/E# [id number] Last Office Visit: Visit date not found Chief Complaint: Patient presents with: New Patient Past Medical/Surgical History: Sarika Avila is a 53 year old female who is referred by Dr. Tanya Herron with the [facility] for neurosurgical evaluation of the cervical spine. [...] Dose Jian Celebrex Baclofen Gabapentin PT/OT: @ [facility] in [place] Botox injections for spastic diplegia PREVIOUS SURGERY: No spine surgery PAIN EVALUATION 10/06/20232104 Pain Level: 6 Pain Location: Neck Description: Aching;Burning;Dull;Numbness;Radia ting;Sharp;Spasm Duration Amount of Time: 5.5 Duration Units: Months Intervention/Comfort measure: Medication;Reposition;Cold;Exercis e;Heat;Massage;Positioning Comments: Radiating from neck down left shoulder [...] SURG CHOLECYSTECTOMY 2014 Cholecystectomy, lap LAPS ABD PRTMANDOMENTUM DX W/WO SPEC BR/WA SPX Laparoscopy, Multiple PAST SURGICAL HISTORY OF [place] tooth extraction x 4 TONSILLECTOMY PRIMARY/SECONDARY Tonsillectomy [...] mouth every morni (more content not included)... [facility] 10-08-2023 History of Present illness Narrative Images from the original note were not included. NEUROSURGERY CONSULT NOTE Aura Dennison MD Chair, Clinical Neurosciences Director, Spinal Neurosurgery [facility] Date of visit: October 08, 2023 Patient Name: Ms.Kimberly Harper Avila Date of : 1970 Current Age: [age] year old Sex: female MRN/E# [id number] Last Office Visit: Visit date not found Chief Complaint: Patient presents with: New Patient Past Medical/Surgical History: Sarika Avila is a 53 year old female who is referred by Dr. Tanya Herron with the [facility] for neurosurgical evaluation of the cervical spine. [...] Dose Jian Celebrex Baclofen Gabapentin PT/OT: @ [facility] [place] Botox injections for spastic diplegia PREVIOUS SURGERY: No spine surgery PAIN EVALUATION 10/06/20232104 Pain Level: 6 Pain Location: Neck Description: Aching;Burning;Dull;Numbness;Radia ting;Sharp;Spasm Duration Amount of Time: 5.5 Duration Units: Months Intervention/Comfort measure: Medication;Reposition;Cold;Exercis e;Heat;Massage;Positioning Comments: Radiating from neck down left shoulder [...] SURG CHOLECYSTECTOMY 2013 Cholecystectomy, lap LAPS ABD PRTM&OMENTUM DX W/WO SPEC BR/WA SPX Laparoscopy, Multiple PAST SURGICAL HISTORY OF [place] tooth extraction x 4 TONSILLECTOMY PRIMARY/SECONDARY <AGE 11 Tonsillectomy TOTAL ABDOMINAL HYSTERECT W/WO RMVL TUBE OVARY Hysterectomy, DNEIS FAMILY HISTORY Problem Relation Age of Onset [...] &/Or Wheezing September 19, 2017 Active 09-19-2017 [facility] ([id number]) cyanocobalamin, vitamin B-12, 1,000 mcg/mL kit Inject [...] understanding and is in agreement with plan. Aura Denniosn MD Chair, Clinical Neurosciences Director, Spinal Neurosurgery [facility] This note was partially generated using [employer] voice recognition system, and there may be some incorrect words, spellings, and punctuation that were not noted in checking the note before saving. documented in this encounter [facility] 08-21-2023 History of Present illness Narrative DEPARTMENT OF NEUROLOGY BOTOX PROCEDURE NOTE FOR SPASTICITY Patient: Sarika Avila : 1970 Diagnosis: Spasticity [R25.2] Procedure: [...] the same doses patient had at the [facility]. The patient reports improvement in spasticity following [...] Site Other Administered By BRANDON Ordering Provider: Maria E Johnson NP [facility]:[id number] [phone] Lot#: [id number] Premises Technician: Allergan Patient Supplied?: No, buy and bill documented in this encounter [facility] 05-21-2023 History of Present illness Narrative DEPARTMENT OF NEUROLOGY BOTOX PROCEDURE NOTE FOR SPASTICITY Patient: Sarika Avila : 1970 Diagnosis: Spasticity [R25.2] Procedure: [...] the same doses patient had at the [facility]. Patient will return to the neurology clinic [...] MD Ordering Provider: LUISITO DONOVAN MD NDC: [id number], [id number] Lot#: [id number] Premises Technician: Allergan Patient Supplied?: No documented in this encounter [facility] 02-18-2023 History of Present illness Narrative Administrations This Visit onabotulinumtoxin A (BOTOX) injection 200 Units Admin Date 02/18/23 Action Given Dose 200 Units Route IntraMUSCular Site Other Administered By LUISITO DONOVAN MD Ordering Provider: LUISITO DONOVAN MD NDC: [id number] x3 Lot#: [id number] Premises Technician: Allergan Patient Supplied?: No DEPARTMENT OF NEUROLOGY BOTOX PROCEDURE NOTE FOR HEADACHE Date: 02/18/23 Patient: Sarika Avila : 1970 Diagnosis: Spasticity [R25.2] Procedure: [...] LUISITO DONOVAN MD documented in this encounter [facility] 02-18-2023 History of Present illness Narrative Administrations This Visit onabotulinumtoxin A (BOTOX) injection 200 Units Admin Date 02/18/23 Action Given Dose 200 Units Route IntraMUSCular Site Other Administered By LUISITO DONOVAN MD Ordering Provider: LUISITO DONOVAN MD [facility]: [id number] [phone] Lot#: [id number] Premises Technician: Allergan Patient Supplied?: No DEPARTMENT OF NEUROLOGY BOTOX PROCEDURE NOTE FOR HEADACHE Date: 02/18/23 Patient: Sarika Avila : 1970 Diagnosis: Spasticity [R25.2] Procedure: [...] PROCEDURE NOTE FOR SPASTICITY Date:02/19/23 Patient: Sarika Avila : 1970 Diagnosis: Spasticity [R25.2] Procedure: [...] following the same doses patient have a [facility]. Patient will return to the neurology clinic in 3 months at that time we will arrange if patient bilateral lower extremities. Thank you [x] Pt tolerated procedure well. Pt advised to avoid exercise or strenuous physical activity for 24 hours. Post treatment expectations reviewed in detail. LUISITO DONOVAN MD documented in this encounter [facility] 01-27-2023 History of Present illness Narrative [...] Impression: Diagnosis Plan 1. Spastic diplegia (CMS/HCC) ([facility]) 2. Multiple sclerosis ([facility]) Plan: We are going to perform Botox injections into both lower extremities following the same doses patient was receiving in [facility]. Patient will require 300 units of Botox. The injection will be performed as follow: Biceps femoris 25 , 25, 50, right Biceps femoris 25,25, left Flexor digitorum longus 75 right Flexor hallucis brevis 50 units. 300 units botox, spasticity LUISITO DONOVAN MD documented in this encounter [facility] 10-30-2016 Evaluation note Diagnosis Onset Date Fatigue acute Hypersomnolence acute Essential (primary) hypertension chronic Multiple sclerosis October 30, 2016 [facility] Work Phone: evaluation noteNo assessment information available [facility] Work Phone: evaluation note* Diagnosis Onset Date Resolution Status NATHALIE (obstructive sleep apnea) acute Essential (primary) hypertension chronic Right foot pain chronic Impetigo noneactive [facility] Work Phone: evaluation note* Diagnosis Onset Date Resolution Status Essential (primary) hypertension chronic NATHALIE (obstructive sleep apnea) chronic Right foot pain chronic Impetigo noneactive Essential (primary) hypertension chronic NATHALIE (obstructive sleep apnea) chronic [facility] Work Phone: evaluation note* Diagnosis Onset Date Resolution Status Essential (primary) hypertension chronic NATHALIE (obstructive sleep apnea) chronic Right foot pain chronic Impetigo noneactive Essential (primary) hypertension chronic NATHALIE (obstructive sleep apnea) chronic Depression chronic Essential (primary) hypertension chronic Multiple sclerosis October 30, 2016 [facility] Work Phone: evaluokvmd note* Diagnosis Spastic diplegia (CMS/HCC) (HCC)- Primary Unspecified infantile cerebral palsy Multiple sclerosis (HCC) Multiple sclerosis documented in this encounter [facility] note* Diagnosis Spasticity- Primary Abnormal involuntary movements documented in this encounter [facility] note* Diagnosis Spasticity- Primary Abnormal involuntary movements documented in this encounter [facility] note* Diagnosis Spastic diplegia (CMS/HCC) (HCC)- Primary Unspecified infantile cerebral palsy documented in this encounter [facility] note* Diagnosis Spastic diplegia (CMS/HCC) (HCC)- Primary Unspecified infantile cerebral palsy Multiple sclerosis (HCC) Multiple sclerosis documented in this encounter [facility] note* Diagnosis Radiculopathy, cervical region- Primary Brachial neuritis or radiculitis nos documented in this encounter [facility] note* Diagnosis Spinal stenosis of cervical region- Primary Spinal stenosis in cervical region [facility] Diagnosis Cervical disc disorder with radiculopathy Brachial neuritis or radiculitis nos [facility]* Diagnosis Urge incontinence- Primary Medication management Encounter for long-term (current) use of other medications [facility]* Diagnosis MS (multiple sclerosis) (HCC)- Primary Multiple sclerosis documented in this encounter [facility] note* Diagnosis Episode of loss of consciousness- Primary Other alteration of consciousness Multiple sclerosis (HCC) [G35] Multiple sclerosis documented in this encounter [facility] note* Diagnosis OAB (overactive bladder)- Primary Hypertonicity of bladder Neurogenic dysfunction of the urinary bladder Neurogenic bladder, NOS MS (multiple sclerosis) (HCC) Multiple sclerosis documented in this encounter [facility] note* Diagnosis Spastic diplegia (CMS/HCC) (HCC)- Primary Unspecified infantile cerebral palsy documented in this encounter [facility] note* Diagnosis Multiple sclerosis (HCC)- Primary Multiple sclerosis [facility] Diagnosis Spastic diplegia (CMS/HCC) (HCC)- Primary Unspecified infantile cerebral palsy documented in this encounter [facility] note* Diagnosis Multiple sclerosis (HCC) Multiple sclerosis [facility]* Diagnosis Multiple sclerosis (HCC) Multiple sclerosis [facility]* Diagnosis Multiple sclerosis (HCC) Multiple sclerosis [facility]* Diagnosis OAB (overactive bladder)- Primary Hypertonicity of bladder [facility]* Diagnosis Urge incontinence- Primary Neurogenic dysfunction of the urinary bladder Neurogenic bladder, NOS OAB (overactive bladder) Hypertonicity of bladder [facility]* Diagnosis Spastic diplegia (CMS/HCC) (HCC)- Primary Unspecified infantile cerebral palsy documented in this encounter [facility] note* Diagnosis UTI symptoms- Primary Other symptoms involving urinary system documented in this encounter [facility] note* Diagnosis Spastic diplegia (CMS/HCC) (HCC)- Primary Unspecified infantile cerebral palsy documented in this encounter [facility] note* Diagnosis Acquired spastic diplegia of lower extremities (HCC)- Primary MS (multiple sclerosis) (HCC) Multiple sclerosis documented in this encounter [facility] for referral (narrative)* Consultation (Routine) - Pending Review Specialty Diagnoses / Procedures Referred By Rohan garcia Referred To Contact Orthopedic Surgery Diagnoses MS (multiple sclerosis) ([facility]) Luisito Donovan MD [address] [facility] [place] [address] Ben Blanc MD [address] [place] [address] [address], [place] [address] Referral ID Status Reason Start Date Expiration Date Visits Requested Visits Authorized [id number] Pending Review Specialty Services Required 11/21/2023 11/20/2024 1 1 * Clinic-Administered Medication (Routine) - Pending Review Specialty Diagnoses / Procedures Referred By Rohan garcia Referred To Contact Diagnoses MS (multiple sclerosis) ([facility]) Luisito Donovan MD [address] [phone] Referral ID Status Reason Start Date Expiration Date V isits Requested Visits Authorized [id number] Pending Review 11/21/2023 11/15/2024 1 1 [facility] for referral (narrative)* Outpatient Procedure (Routine) - Authorized Specialty Diagnoses / Procedures Referred By Rohan garcia Referred To Contact [facility] Diagnoses Episode of loss of consciousness Procedures EPIL EEG LONG EEG EXTENDED MONITORING 61-119 MINUTES ELECTROENCEPHALOGRAM REC COMA/SLEEP ONLY Lucia Cortes MD [address] [facility] [address] [address] Neu[facility] [place] [address] [place] [address] Referral ID Status Reason Start Date Expiration Date Visits Requested Visits Authorized [id number] Authorized Auto-Generat ed Referral 11/21/2023 11/20/2024 1 1 [facility] for visit Narrative* Diagnostic Procedure Only (Routine) - Closed Specialty Diagnoses / Procedures Referred By Controsa isela t Referred To Contact XR IMAGING Diagnoses Cervical disc disorder with radiculopathy Procedures XR CERV OTHER 4V AP/LAT/FLX/EXT RADEX SPINE CERVICAL 4 OR 5 VIEWS Aura Dennison I, MD [address] [place] [address] [place] [id number] Referral ID Status Reason Start Date Expiration Date V isits Requested Visits Authorized [id number] Closed Auto-Generate d Referral 09/16/2023 10/15/2024 1 1 [facility] Summary Purpose Family History No Family History Records Found Relationship Condition Age at Onset Recorded Date/T stacey mother Alcoholism Unknown Anemia Unknown Asthma Unknown Chronic obstructive pulmonary disease Unk nown Arthritis Unknown Kidney disorder Unknown Mental disorder Unknown Respiratory abnormality Unknown Cerebrovascular accident (CVA) Unknown grandfather Angina pectoris Unknown Myocardial infarction Unknown grandmother Arthritis Unknown Hypertension Unknown Osteoporosis Unknown sister Crohn's disease Unknown Disorder of intestine Unknown uncle Parkinson's disease Unknown Advance Directives No Advanced Directives Records FoundDocuments on File Type Date Recorded Patient Alliance Director Expl anation Advance Directives and Living Will Power of Review Assistant Advance Directive Response Recorded Date/ Time Living Will No April 10 1 5:44pm Power of Review Assistant No April 10, 021 5:44pm Advance Directive Response Recorded Date/ Time Living Will No April 10 4:44pm Power of Review Assistant No April 10 021 4:44pm Discharge Instructions * Instructions* Kenzie Hernández, YEISON - 04/29/2019 Shower with an antibacterial soap such as Dial or Safeguard. Please bring your [facility] PostedIn Surgical Information folder on the day of [...] all instructions given to you by Dr. HUDDLESTON You will receive a reminder call the day before surgery with your Same Day Surgery arrival time. If you have specific questions, please call your surgeon. Please take the H elevator to the first floor- Same Day Surgery You may use the free game agent parking at the main entrance on [address] [place] [address], or the free parking in the [facility] parking deck * Attachments The following attachments cannot be sent through Care Everywhere. * Pelvic Prolapse: Pre-op (Citizen Of [place]) * Cystoscopy: Pre-op (Citizen Of [place]) documented in this encounter History of Present Illness * Kenzie Hernández RN - 04/29/2019 4:16 PM EDT Surgery scheduling notified of Latex allergy. documented in this encounter Chief Complaint and Reason for Visit Chief Complaint fatigue COVID TEST HYPERSOMNOLENCE Reason for Visit Fatigue Hypersomnolence Essential (primary) hypertension Multiple sclerosis Chief Complaint COVID TEST HYPERSOMNOLENCE Chief Complaint HYPERSOMNOLENCE Chief Complaint ADRENAL MASS Amb Documentation Chief Complaint ADRENAL MASS Amb Documentation LUMBAR RADICULOPATHY, RT SCIATICA Chief Complaint ADRENAL MASS Amb Documentation LUMBAR RADICULOPATHY, RT SCIATICA CPAP, ANKLES SWELLING ADDT LABS SCANNED IN ON 05/01/22 DR JOSHUA MORA ON SIDE OF LIP MASK LEAK Reason for Visit NATHALIE (obstructive sle ep apnea) Essential (primary) hypertension Right foot pain Impetigo Chief Complaint CPAP, ANKLES SWELLIN G ADDT LABS SCANNED IN ON 05/01/22 DR JOSHUA MORA ON SIDE OF LIP MASK LEAK fu Reason for Visit Essential (primary) hypertension NATHALIE (obstructive sleep apnea) Right foot pain Impetigo Essential (primary) hypertension NATHALIE (obstructive sleep apnea) Chief Complaint CPAP, ANKLES SWELLIN G ADDT LABS SCANNED IN ON 05/01/22 DR JOSHUA MORA ON SIDE OF LIP MASK LEAK fu 1 M FU Reason for Visit Essential (primary) hypertension NATHALIE (obstructive sleep apnea) Right foot pain Impetigo Essential (primary) hypertension NATHALIE (obstructive sleep apnea) Depression Essential (primary) hypertension Multiple sclerosis Reason for Referral Specialty Diagnoses / Procedures Referred By Contac t Referred To Contact Diagnoses Spasticity Luisito Donovan MD [address] [place] [address] Referral ID Status Reason Start Date Expiration Date V isits Requested Visits Authorized [id number] Pending Review 02/18/2023 08/17/2023 1 1 Specialty Diagnoses / Procedures Referred By Contac t Referred To Contact Diagnoses Spastic diplegia (CMS/HCC) (HCC) Maria E Johnson APRN - CNC MACHINE OPERATOR [address] [place] [address] Referral ID Status Reason Start Date Expiration Date V isits Requested Visits Authorized [id number] Pending Review 05/21/2023 11/17/2023 1 1 Referral ID Status Reason Start Date Expiration Date V isits Requested Visits Authorized [id number] Pending Review 08/21/2023 08/15/2024 1 1 Specialty Diagnoses / Procedures Referred By Contac t Referred To Contact [facility] Diagnoses Radiculopathy, cervical region Procedures CONSULT TO PHYSICAL THERAPY PHYSICAL THERAPY EVALUATION HIGH COMPLEX 45 MINS Aura Dennison I, MD [address] [place] [address] [facility] [address] [place] [address] Referral ID Status Reason Start Date Expiration Date Visits Requested Visits Authorized [id number] Pending Review Auto-Generat ed Referral 10/08/2023 10/07/2024 1 1 Specialty Diagnoses / Procedures Referred By Contac t Referred To Contact Maria De Jesus Cleaning APRN.CNC MACHINE OPERATOR [address] [place] [address] Referral ID Status Reason Start Date Expiration Date V isits Requested Visits Authorized [id number] Pending Review 1 1 Specialty Diagnoses / Procedures Referred By Contac t Referred To Contact [facility] Diagnoses Neurogenic dysfunction of the urinary bladder OAB (overactive bladder) Procedures BOTULINUM TOXIN A PER 1 UNIT CYSTOURETHROSCOPY INJ CHEMODENERVATION BLADDER Maria De Jesus Cleaning APRN.CNC MACHINE OPERATOR [address] [place] [address] [place] [address] [employer] [place] [phone] Referral ID Status Reason Start Date Expiration Date V isits Requested Visits Authorized [id number] Pending Review 01/08/2024 04/07/2024 1 1 Referral ID Status Reason Start Date Expiration Date V isits Requested Visits Authorized [id number] Pending Review 02/20/2024 02/14/2025 1 1 Specialty Diagnoses / Procedures Referred By Contac t Referred To Contact MR IMAGING Diagnoses Multiple sclerosis (HCC) Procedures MRI THORACIC SPINE WO/W IVCON MRI SPINAL CANAL THORACIC W/O & W/CONTR Lucia Sullivan MD [address] [place] [address] Mr Imaging [place] [address] Referral ID Status Reason Start Date Expiration Date Visits Requested Visits Authorized [id number] Authorized Auto-Generat ed Referral 02/11/2024 03/12/2025 1 1 Specialty Diagnoses / Procedures Referred By Contac t Referred To Contact MR IMAGING Diagnoses Multiple sclerosis (HCC) Procedures MRI CERVICAL SPINE WO/W IVCON MRI SPINAL CANAL CERVICAL W/O & W/CONTR Lucia Sullivan MD [address] [place] [phone] Mr Imaging [place] [address] Referral ID Status Reason Start Date Expiration Date Visits Requested Visits Authorized [id number] Authorized Auto-Generat ed Referral 02/11/2024 03/12/2025 1 1 Specialty Diagnoses / Procedures Referred By Contac t Referred To Contact MR IMAGING Diagnoses Multiple sclerosis (HCC) Procedures MRI BRAIN WO/W IVCON MRI BRAIN BRAIN STEM W/O W/CONTRAST MATERIAL Lucia Cortes MD [address] [place] [phone] Mr Imaging [facility] Referral ID Status Reason Start Date Expiration Date Visits Requested Visits Authorized [id number] Authorized Auto-Generat ed Referral 02/11/2024 03/12/2025 1 1 Referral ID Status Reason Start Date Expiration Date V isits Requested Visits Authorized [id number] Closed Auto-Generate d Referral 02/11/2024 03/12/2025 1 1 Referral ID Status Reason Start Date Expiration Date V isits Requested Visits Authorized [id number] Closed Auto-Generate d Referral 02/11/2024 03/12/2025 1 1 Referral ID Status Reason Start Date Expiration Date V isits Requested Visits Authorized [id number] Closed Auto-Generate d Referral 02/11/2024 03/12/2025 1 1 Specialty Diagnoses / Procedures Referred By Contac t Referred To Contact [facility] Diagnoses Urge incontinence Procedures BOTULINUM TOXIN A PER 1 UNIT CYSTOURETHROSCOPY INJ CHEMODENERVATION BLADDER SouthGege MD [address] [place] [address] [facility] [address] [place] [address] Referral ID Status Reason Start Date Expiration Date V isits Requested Visits Authorized [id number] New Request 08/25/2024 08/24/2025 99 99 Referral ID Status Reason Start Date Expiration Date V isits Requested Visits Authorized [id number] Pending Review 05/21/2024 05/16/2025 1 1 Additional Source Comments INFORMATION SOURCE (unrecogn ized section and content) DATE CREATED AUTHOR 05/08/2019 [facility] ([place]) DATE CREATED AUTHOR AUTHOR'S ORGANIZ ATION 05/23/2019 [facility] DATE CREATED AUTHOR AUTHOR'S ORGANIZ ATION 08/17/2023 [facility] DATE CREATED AUTHOR AUTHOR'S ORGANIZ ATION 01/11/2024 [facility] DATE CREATED AUTHOR AUTHOR'S ORGANIZ ATION 09/18/2024 [facility] DATE CREATED AUTHOR AUTHOR'S ORGANIZ ATION 02/19/2025 [facility] PostedIn [facility] DATE CREATED AUTHOR AUTHOR'S ORGANIZ ATION 03/06/2025 [facility] Goals (unrecognized section and content) Goals may be documented in a n alternate sectionGoals may be documented in an alternate sectionGoals may be documented in an alternate sectionGoals may be documented in an alternate sectionGoals may be documented in an alternate sectionGoals may be documented in an alternate sectionGoals may be documented in an alternate sectionGoals may be documented in an alternate sectionGoals may be documented in an alternate sectionGoals may be documented in an alternate section Reason for Visit (unrecogniz ed section and content) Reason Comments Procedure Specialty Diagnoses / Procedures Referred By Contac t Referred To Contact Diagnoses Acquired spastic diplegia of lower extremities (HCC) MS (multiple sclerosis) ([facility]) Luisito Donovan MD [address] [facility] [place] [address] Phone: tel: fax: Referral ID Status Reason Start Date Expiration Date V isits Requested Visits Authorized [id number] Pending Review 02/18/2025 02/13/2026 1 1 Specialty Diagnoses / Procedures Referred By Contac t Referred To Contact Diagnoses Spastic diplegia (CMS/HCC) (HCC) Maria E Johnson, PALOMO Joseph CNP [address] [place] [address] Referral ID Status Reason Start Date Expiration Date V isits Requested Visits Authorized [id number] Pending Review 08/21/2023 08/15/2024 1 1 Reason Comments New Patient Discuss botox inject ions spasticity in b/l legs Specialty Diagnoses / Procedures Referred By Contac t Referred To Contact Neurology Diagnoses Multiple sclerosis (HCC) Procedures PA OFFICE/OUTPATIENT NEW MODERATE MDM 45-59 MINUTES Inga James [address] [place] [address] Luisito Donovan MD [address] [facility] [place] [address] Referral ID Status Reason Start Date Expiration Date V isits Requested Visits Authorized [id number] Pending Review 12/06/2022 12/06/2023 1 1 Reason Comments Procedure Botox- Spasticity Specialty Diagnoses / Procedures Referred By Contac t Referred To Contact Diagnoses Spasticity Luisito Donovan MD [address] [facility] [place] [address] Referral ID Status Reason Start Date Expiration Date V isits Requested Visits Authorized [id number] Pending Review 02/18/2023 08/17/2023 1 1 Reason Onset Date Comments Med Refill 02/18/2023 Referral ID Status Reason Start Date Expiration Date V isits Requested Visits Authorized [id number] Pending Review 05/21/2023 11/17/2023 1 1 Reason Comments New Patient Reason Comments Med Change Request Reason Comments Procedure Specialty Diagnoses / Procedures Referred By Contac t Referred To Contact Diagnoses MS (multiple sclerosis) (HCC) Luisito Donovan MD [address] [facility] [place] [address] Referral ID Status Reason Start Date Expiration Date V isits Requested Visits Authorized [id number] Pending Review 11/21/2023 11/15/2024 1 1 Reason Comments New Patient Evaluation Reason Comments Patient Question Reason Comments Overactive Bladder Reason Comments Care Coordination Botox Referral ID Status Reason Start Date Expiration Date V isits Requested Visits Authorized [id number] Pending Review 02/20/2024 02/14/2025 1 1 Reason Comments Established Patient Follow-Up Reason Onset Date Comments Med Management 02/23/2024 Botox PA Reason Comments Radiology MRI Specialty Diagnoses / Procedures Referred By Contac t Referred To Contact MR IMAGING Diagnoses Multiple sclerosis (HCC) Procedures MRI THORACIC SPINE WO/W IVCON MRI SPINAL CANAL THORACIC W/O & W/CONTR MATRL Lucia Cortes MD [address] [place] [address] Mr Imaging [place] [address] Referral ID Status Reason Start Date Expiration Date V isits Requested Visits Authorized [id number] Closed Auto-Generate d Referral 02/11/2024 03/12/2025 1 1 Specialty Diagnoses / Procedures Referred By Contac t Referred To Contact MR IMAGING Diagnoses Multiple sclerosis (HCC) Procedures MRI BRAIN WO/W IVCON MRI BRAIN BRAIN STEM W/O W/CONTRAST MATERIAL Lucia Cortes MD [address] [place] [address] Mr Imaging [place] [address] Referral ID Status Reason Start Date Expiration Date V isits Requested Visits Authorized [id number] Closed Auto-Generate d Referral 02/11/2024 03/12/2025 1 1 Specialty Diagnoses / Procedures Referred By Contac t Referred To Contact MR IMAGING Diagnoses Multiple sclerosis (HCC) Procedures MRI CERVICAL SPINE WO/W IVCON MRI SPINAL CANAL CERVICAL W/O & W/CONTR Lucia Sullivan MD [address] [place] [phone] Mr Imaging [place] [address] Referral ID Status Reason Start Date Expiration Date V isits Requested Visits Authorized [id number] Closed Auto-Generate d Referral 02/11/2024 03/12/2025 1 1 Reason Comments Refill Request Reason Comments Procedure Cysto botox 200 unit s Specialty Diagnoses / Procedures Referred By Contac t Referred To Contact [facility] Diagnoses Neurogenic bladder Procedures BOTULINUM TOXIN A PER 1 UNIT CYSTOURETHROSCOPY INJ CHEMODENERVATION BLADDER [facility] CenterGe[facility] MD [address] [place] [address] [employer] [facility] [place] [address] [place] [address] Referral ID Status Reason Start Date Expiration Date V isits Requested Visits Authorized [id number] Authorized 03/31/2024 08/24/2024 99 99 Reason Comments Procedure Botox - spasticity Referral ID Status Reason Start Date Expiration Date V isits Requested Visits Authorized [id number] Pending Review 05/21/2024 05/16/2025 1 1 Reason Comments Procedure Botulinum Toxin Injection Specialty Diagnoses / Procedures Referred By Contac t Referred To Contact Diagnoses Spastic diplegia (CMS/HCC) (HCC) Maria E Johnson, ASSIGNMENT AGENT - [address] [place] [address] Phone: tel: fax: Referral ID Status Reason Start Date Expiration Date V isits Requested Visits Authorized [id number] Pending Review 08/20/2024 08/15/2025 1 1 Reason Comments Procedure Botox - Spasticity Specialty Diagnoses / Procedures Referred By Contac t Referred To Contact Diagnoses Spastic diplegia (CMS/HCC) (HCC) Elizabeth Maria E, ASSIGNMENT AGENT - CNC MACHINE OPERATOR [address] [place] [address] Phone: tel: fax: Referral ID Status Reason Start Date Expiration Date V isits Requested Visits Authorized [id number] Pending Review 11/19/2024 11/14/2025 1 1 Care Teams (unrecognized sec tion and content) Supervisor Stave Finishing Relationship Specialty Start Date End Date Dina Wu [address] [place] [address] PCP - General 04/06/19 Supervisor Stave Finishing Relationship Specialty Start Date End Date Dina Wu B [address] [place] [address] PCP - General 04/06/19 Supervisor Stave Finishing Relationship Specialty Start Date End Date Dina Wu B [address] [place] [address] PCP - General 04/06/19 Supervisor Stave Finishing Relationship Specialty Start Date End Date Dina Wu B [address] [place] [address] PCP - General 04/06/19 Supervisor Stave Finishing Relationship Specialty Start Date End Date Dina Wu B [address] [facility] [[email or web address] [address] [place] [address] PCP - General Internal Medicine 05/21/23 Supervisor Stave Finishing Relationship Specialty Start Date End Date Dina Wu B [address] [facility] [address] [place] [address] PCP - General Internal Medicine 05/21/23 Supervisor Stave Finishing Relationship Specialty Start Date End Date Annita Escobedo DO PCP - General Family Medicine 04/30/17 Supervisor Stave Finishing Relationship Specialty Start Date End Date Annita Escobedo DO PCP - General Family Medicine 04/30/17 Supervisor Stave Finishing Relationship Specialty Start Date End Date Annita Escobedo DO PCP - General Family Medicine 04/30/17 Supervisor Stave Finishing Relationship Specialty Start Date End Date Annita Escobedo DO PCP - General Family Medicine 04/30/17 Supervisor Stave Finishing Relationship Specialty Start Date End Date Annita Escobedo DO PCP - General Family Medicine 04/30/17 Supervisor Stave Finishing Relationship Specialty Start Date End Date Annita Escobedo DO PCP - General Family Medicine 04/30/17 Supervisor Stave Finishing Relationship Specialty Start Date End Date Dina Wu [address] [phone] PCP - General Internal Medicine 05/21/23 Supervisor Stave Finishing Relationship Specialty Start Date End Date Annita Escobedo DO PCP - General Family Medicine 04/30/17 Supervisor Stave Finishing Relationship Specialty Start Date End Date Annita Escobedo DO PCP - General Family Medicine 04/30/17 Supervisor Stave Finishing Relationship Specialty Start Date End Date Annita Escobedo DO PCP - General Family Medicine 04/30/17 Supervisor Stave Finishing Relationship Specialty Start Date End Date Annita Escobedo DO PCP - General Family Medicine 04/30/17 Supervisor Stave Finishing Relationship Specialty Start Date End Date Dina Wu [address] [place] [address] PCP - General Internal Medicine 05/21/23 Supervisor Stave Finishing Relationship Specialty Start Date End Date Annita Escobedo DO PCP - General Family Medicine 04/30/17 Supervisor Stave Finishing Relationship Specialty Start Date End Date Dina Wu [address] [place] [address] PCP - General Internal Medicine 05/21/23 Supervisor Stave Finishing Relationship Specialty Start Date End Date Dina Wu [address] [place] [address] PCP - General Internal Medicine 05/21/23 Supervisor Stave Finishing Relationship Specialty Start Date End Date Annita Escobedo DO PCP - General Family Medicine 04/30/17 Supervisor Stave Finishing Relationship Specialty Start Date End Date Annita Escobedo DO PCP - General Family Medicine 04/30/17 Supervisor Stave Finishing Relationship Specialty Start Date End Date Annita Escobedo DO PCP - General Family Medicine 04/30/17 Supervisor Stave Finishing Relationship Specialty Start Date End Date Annita Escobedo DO PCP - General Family Medicine 04/30/17 Supervisor Stave Finishing Relationship Specialty Start Date End Date Annita Escobedo DO PCP - General Family Medicine 04/30/17 Supervisor Stave Finishing Relationship Specialty Start Date End Date Dina Wu [address] [place] [address] (Fax) PCP - General Internal Medicine 05/21/23 Supervisor Stave Finishing Relationship Specialty Start Date End Date Annita Escobedo DO PCP - General Family Medicine 04/30/17 Supervisor Stave Finishing Relationship Specialty Start Date End Date Dina Wu [address] [place] [address] (Fax) PCP - General Internal Medicine 05/21/23 Supervisor Stave Finishing Relationship Specialty Start Date End Date Annita Escobedo DO PCP - General Family Medicine 04/30/17 Supervisor Stave Finishing Relationship Specialty Start Date End Date Dina Wu [address] [place] [address] (Fax) PCP - General Internal Medicine 05/21/23 Source Comments (unrecognize d section and content) In the event this informatio n is protected by the Federal Confidentiality of Alcohol and Drug Abuse Patient Records regulations: The Federal rules restrict any use of the information to criminally investigate or prosecute any alcohol or drug abuse patient.[facility] Hospital[facility] the event this information is protected by the Federal Confidentiality of Alcohol and Drug Abuse Patient Records regulations: The Federal rules restrict any use of the information to criminally investigate or prosecute any alcohol or drug abuse patient.[facility] HospitalIn the event this information is protected by the Federal Confidentiality of Alcohol and Drug Abuse Patient Records regulations: The Federal rules restrict any use of the information to criminally investigate or prosecute any alcohol or drug abuse patient.[facility] HospitalIn the event this information is protected by the Federal Confidentiality of Alcohol and Drug Abuse Patient Records regulations: The Federal rules restrict any use of the information to criminally investigate or prosecute any alcohol or drug abuse patient.[facility] HospitalIn the event this information is protected by the Federal Confidentiality of Alcohol and Drug Abuse Patient Records regulations: The Federal rules restrict any use of the information to criminally investigate or prosecute any alcohol or drug abuse patient.[facility] HospitalIn the event this information is protected by the Federal Confidentiality of Alcohol and Drug Abuse Patient Records regulations: The Federal rules restrict any use of the information to criminally investigate or prosecute any alcohol or drug abuse patient.[facility] HospitalIn the event this information is protected by the Federal Confidentiality of Alcohol and Drug Abuse Patient Records regulations: The Federal rules restrict any use of the information to criminally investigate or prosecute any alcohol or drug abuse patient.[facility] HospitalIn the event this information is protected by the Federal Confidentiality of Alcohol and Drug Abuse Patient Records regulations: The Federal rules restrict any use of the information to criminally investigate or prosecute any alcohol or drug abuse patient.[facility] HospitalIn the event this information is protected by the Federal Confidentiality of Alcohol and Drug Abuse Patient Records regulations: The Federal rules restrict any use of the information to criminally investigate or prosecute any alcohol or drug abuse patient.[facility] HospitalIn the event this information is protected by the Federal Confidentiality of Alcohol and Drug Abuse Patient Records regulations: The Federal rules restrict any use of the information to criminally investigate or prosecute any alcohol or drug abuse patient.[facility] HospitalIn the event this information is protected by the Federal Confidentiality of Alcohol and Drug Abuse Patient Records regulations: The Federal rules restrict any use of the information to criminally investigate or prosecute any alcohol or drug abuse patient.[facility] HospitalIn the event this information is protected by the Federal Confidentiality of Alcohol and Drug Abuse Patient Records regulations: The Federal rules restrict any use of the information to criminally investigate or prosecute any alcohol or drug abuse patient.[facility] HospitalIn the event this information is protected by the Federal Confidentiality of Alcohol and Drug Abuse Patient Records regulations: The Federal rules restrict any use of the information to criminally investigate or prosecute any alcohol or drug abuse patient.[facility] HospitalIn the event this information is protected by the Federal Confidentiality of Alcohol and Drug Abuse Patient Records regulations: The Federal rules restrict any use of the information to criminally investigate or prosecute any alcohol or drug abuse patient.[facility] HospitalIn the event this information is protected by the Federal Confidentiality of Alcohol and Drug Abuse Patient Records regulations: The Federal rules restrict any use of the information to criminally investigate or prosecute any alcohol or drug abuse patient.[facility] HospitalIn the event this information is protected by the Federal Confidentiality of Alcohol and Drug Abuse Patient Records regulations: The Federal rules restrict any use of the information to criminally investigate or prosecute any alcohol or drug abuse patient.[facility] HospitalIn the event this information is protected by the Federal Confidentiality of Alcohol and Drug Abuse Patient Records regulations: The Federal rules restrict any use of the information to criminally investigate or prosecute any alcohol or drug abuse patient.[facility] HospitalIn the event this information is protected by the Federal Confidentiality of Alcohol and Drug Abuse Patient Records regulations: The Federal rules restrict any use of the information to criminally investigate or prosecute any alcohol or drug abuse patient.[facility] HospitalIn the event this information is protected by the Federal Confidentiality of Alcohol and Drug Abuse Patient Records regulations: The Federal rules restrict any use of the information to criminally investigate or prosecute any alcohol or drug abuse patient.[facility]In the event this information is protected by the Federal Confidentiality of Alcohol and Drug Abuse Patient Records regulations: The Federal rules restrict any use of the information to criminally investigate or prosecute any alcohol or drug abuse patient.[facility]In the event this information is protected by the Federal Confidentiality of Alcohol and Drug Abuse Patient Records regulations: The Federal rules restrict any use of the information to criminally investigate or prosecute any alcohol or drug abuse patient.[facility] HospitalIn the event this information is protected by the Federal Confidentiality of Alcohol and Drug Abuse Patient Records regulations: The Federal rules restrict any use of the information to criminally investigate or prosecute any alcohol or drug abuse patient.[facility]In the event this information is protected by the Federal Confidentiality of Alcohol and Drug Abuse Patient Records regulations: The Federal rules restrict any use of the information to criminally investigate or prosecute any alcohol or drug abuse patient.[facility] HospitalIn the event this information is protected by the Federal Confidentiality of Alcohol and Drug Abuse Patient Records regulations: The Federal rules restrict any use of the information to criminally investigate or prosecute any alcohol or drug abuse patient.[facility] HospitalIn the event this information is protected by the Federal Confidentiality of Alcohol and Drug Abuse Patient Records regulations: The Federal rules restrict any use of the information to criminally investigate or prosecute any alcohol or drug abuse patient.[facility] FOR RECORDS PERTAINING TO PATIENTS WHO [...] BE BASED ON THE PRIMARY CLINICAL RECORDS. [facility] [employer] [facility]. provides no warranty or guarantee of the accuracy or completeness of information in this document."
[2025-03-12 11:11] LABS: Hematocrit 41.9 % (37-47); Hemoglobin 14.4 g/dL (12.0-15.0); Immature Granulocytes Count 0.020 X10^3/uL (0.0-0.0); Mean Corp Hgb Conc 34.4 g/dL (32-36); Mean Corpuscular Volume 99.5 fL (81-99); Mean Platelet Vol. 8.4 fl (6.2-12.0); NRBC Flagged by Analyzer 0 % (0-5); Platelet Count 255 K/mm3 (150-450); RBC Distribution Width CV 13.1 % (11.6-14.6); RBC Distribution Width SD 47.6 fl (35.1-43.9); Red Blood Count 4.21 M/mm3 (4.2-5.4); White Blood Count 6.9 K/mm3 (4.4-11.0)
[2025-03-12 11:51] LABS: AST(SGOT) 21 U/L (<=31); Alanine Aminotransfer ALT/SGPT 15 U/L (<=34); Albumin, Serum 4.4 g/dL (3.5-5.0); Alkaline Phosphatase 82 U/L (35-104); Anion Gap 12 (5-15); BUN 17 mg/dL (4-19); BUN/Creat Ratio 11.5 RATIO (10-20); Calcium,Total 10.0 mg/dL (7.6-11.0); Carbon Dioxide 26.8 mmol/L (21.0-32.0); Chloride 99 mmol/L (98-108); Cholesterol 159 mg/dL (<=200); Globulin 3.0 g/dL (2.2-4.2); Glucose 90 mg/dL (70-99); Low Density Lipoprotein Calc. 96 mg/dL; Potassium 4.0 mmol/L (3.3-5.1); Triglycerides 59 mg/dL; Very Low Density Lipoprotein 12 mg/dL (5-40); cholesterol:hdl ratio screen 3.08
[2025-03-12 11:55] LABS: Vitamin D,25 Hydroxy 52.7 ng/mL (30-100)
== END | disposition home or self-care (01) ==
LOC: LAB 10:55
PROVIDERS: PCP Internal Medicine; Referring Provider Internal Medicine; Visit Provider Internal Medicine
DX: E11.69 Type 2 diabetes mellitus with other specified complication (principal)
CPT/HCPCS: 36415; 80053; 80061; 82306; 85025

== ENCOUNTER → 2025-04-01 | Outpatient (CLI) | payer OTHER, SELFPAY | END | disposition home or self-care (01) | LOC: SL 14:34 | PROVIDERS: PCP Internal Medicine; Referring Provider Internal Medicine; Visit Provider Internal Medicine | DX: G47.33 Obstructive sleep apnea (adult) (pediatric) (principal) ==

== ENCOUNTER 2025-04-19 17:00 | Outpatient (RCR) | payer OTHER, SELFPAY ==
--- NOTE | 2025-02-21 08:03 | HP.PTEVAL ---
Patient's Visit Information Visit Information Visit Information: DELMER AVILA is a 54 year old F referred to Physical Therapy by Dr. Keith Wu MD with a diagnosis of chronic back pain. Date of Evaluation: 02/21/25 Physical Therapist: Allan Tejeda, DPT, OCS, CSCS Visit Plan Frequency: 2x /Week Duration: 4-6 Weeks Plan: 2x/week for 3-6 weeks IE HEP : seated flexion 15x, R HS streetch 30 5x all 3x/day, walk bendiing R knee and safety with ambulation, benefits of using AD which she has, seeking pain management, home safety and future concerns. treat with LB ROM, R LE HS and gastroc streetching progressing to HEP, rollout same, strength core hips and LE to I, possibly wellness program if desired after back moving well. Pt may bring Ad, bracing that she has at home but is reluctant to use and will consider first floor set up , AD, grab bars, walk in shower for futujre mobility. 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 I fell in September and crunched back. had X ray a few months later. X ray was OA. now back hurts worse than before the fall. Mostly back pain and R leg and down leg to toes. Hard to put shoes on due to pain. Intermittent much of time. sleep is hard and it wakes marly up. she is very stiff and spastic from her MS. Is on baclofen and gabapentin. No recent changes. Hard to work if she goes higher dosage. 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 Walking campus and she falls. Fell getting out of chair once and fell walking to car with arms full. Has walker and cane but does not use them much. has forearm crutches. Hobbies include dogs playing but mostly at home. Live with boyfriend, three story with steps with railing, Steps are painful. Avoids laundry as much as she can. Has tub to step over and no hand rails. No regular exercises. Just got a rowing machine and started. Pain LBP, R leg: Pain Intensity (Out of 10): 4 Pain Intensity Range: 3 and 5 Objective Objective: Walks antalgia R into PT I, no bend to R knee and hiking hip and R foot PFed and turned out slightly. [employer] chair and bed I today. R HS max tight and spastic at -40 90 /90 vs -30 On L. Gastrc max tight on R at -10 aROM and -8 PROM vs 2 Df on L. strength ankles 4-/5R and 4/5 L, knees 4/5 B knee flexion and ext. Hi strength abd and ext 3 on R and 3+ on L, flexion 3 + B with contralateral instability seated. Core 3+ flexiona dn ext. sensatio diminished to gross light touch in B distal LE. reflexes 3/3 R LE patella and 2/3 L Lumbar AROM ext is good with pain R side, R SB painful, L is not. flexion is mod limtieed and cannot get toes, feels tight posterior back and leg. - SLR, - slump but vry tight on R. steps are reciprocal up with one rail, desceending is with L only and one rail is safeest. Balance systems seem to be funcitoning with romberg eo and ec , mostly movement of r LE motor control is putting her at risk. Balance/Special Test Scores Oswestry Low Back Score: 29 Goals Goal 1:: reach feet to put on socks and shoes easilya dn without pain Goal Time Frame: 4-6 Weeks Goal 2:: I approrpiate HEP to limit back problems and stretech R LE(and possibly wellness routine ) Goal Time Frame: 4-6 Weeks Goal 3:: sleep without waking due to pain Goal Time Frame: 4-6 Weeks Goal 4:: Walk FGA 23/30 without fear Goal Time Frame: 4-6 Weeks Goal 5:: LB pain 75% better and 1/10 at worst Goal Time Frame: 4-6 Weeks Rehabilitation Potential Physical Therapy Diagnosis: stiffness and soreness in Lb and R LE limiting comfortable funciton. Rehabilitation Potential: Fair Anticipated Interventions Patient/Client Instruction: Educate patient on: Condition and Plan of Care For the Purpose of:: To decrease pain, To increase ROM, To improve muscle performance and motor function, To increase tolerance to activity/condition/position and To improve ability of physical actions for home/community/work/leisure Therapeutic Exercise to Include: Strength training, Flexibilty training, Gait and locomotor training, Passive ROM and Active ROM For the Purpose of:: To decrease pain, To increase ROM, To improve nutrient delivery to tissue, To improve muscle performance and motor function and To increase tolerance to activity/condition/position Manual Therapy Techniques to Include: Mobilization, Passive ROM and Soft tissue mobilization For the Purpose of:: To decrease pain, To increase ROM, To improve nutrient delivery to tissue, To improve muscle performance and motor function and To increase tolerance to activity/condition/position Text: Thank you for the opportunity to evaluate your patient. For Medicare and Medicare HMO plans, please review the plan of care and approve it. It will need to be FAXED BACK to us at [phone] for Medicare purposes. For Medicare only, by signing this I certify the plan of care. Please let me know if there are questions or concerns regarding this plan of care. Physician Signature: Date:
--- NOTE | 2025-04-19 17:33 | HP.PTDCSUM ---
Discharge Summary D/C summary: It has been my pleasure to treat DELMER AVILA referred by Dr. Keith Wu MD, with the diagnosis of chronic back pain for a total of 8 visit(s). Discharge Date: 04/19/25 Please see the following information for a summary of their discharge status. Subjective Subjective: I can still get to my feet but whenever I do more, I gt more pain. Worse with more walking. Has it in both legs. Has not thought about lightening load. Offered more baclofena dn gabapentin but does not want to with work. Saw pain management and had injections in facet joint Pain LBP, R leg: Pain Intensity (Out of 10): 5 Overall Improvement % Improvement: 80 Objective Objective/Function: Walking with R foot turned out and stiff knee but can correct with VC, painful in LB either way. Subjectively c/o more pain and one month late on f/u with pain mgmt. Goals Goal 1:: reach feet to put on socks and shoes easilya dn without pain Goal Progress: Goal Met Goal 2:: I approrpiate HEP to limit back problems and stretech R LE(and possibly wellness routine ) Goal Progress: Goal Met Goal 3:: sleep without waking due to pain Goal Progress: Progressing Goal 4:: Walk FGA without fear Goal Progress: not tested, pain. Goal 5:: LB pain 75% better and 1/10 at worst Goal Progress: 80% Plan Plan: d/c, pt to pain mgmt and to continue HEP, Aquatic therapy should be considered if pain mgmt and HEP do not get her where she wants to be. D/C Information Discharge Comments: Pt to check with pain management adn continue HEP d/c sentence: If there are questions or concerns regarding this patient's physical therapy, please feel free to call me at [phone]. Thank you for the referral of this patient. Sincerely, Allan Tejeda, DPT, OCS, CSCS Balance/Gait/Functional tests Balance/Special Test Scores Oswestry Low Back Score: 29 Improvement % Improvement: 80
== END 2025-04-19 19:00 | disposition home or self-care (01) ==
LOC: PT 17:00
PROVIDERS: PCP Internal Medicine; Referring Provider Internal Medicine; Visit Provider Internal Medicine
DX: M54.9 Dorsalgia, unspecified (principal); G89.29 Other chronic pain
CPT/HCPCS: 97110; 97162; 97164; 97530

== ENCOUNTER → 2025-05-10 | Outpatient (CLI) | payer OTHER, SELFPAY ==
[2025-05-10 10:42] LABS: Free T3 2.7 pg/mL (2.18-3.98)
== END | disposition home or self-care (01) ==
PROVIDERS: PCP Internal Medicine; Referring Provider Internal Medicine Endocrinology, Diabetes & Metabolism; Visit Provider Internal Medicine Endocrinology, Diabetes & Metabolism
DX: E03.9 Hypothyroidism, unspecified (principal); G35 Multiple sclerosis; E11.65 Type 2 diabetes mellitus with hyperglycemia; E11.22 Type 2 diabetes mellitus with diabetic chronic kidney disease; E27.8 Other specified disorders of adrenal gland; N18.9 Chronic kidney disease, unspecified
CPT/HCPCS: 36415; 83036; 84439; 84443; 84481

== ENCOUNTER → 2025-08-24 | Outpatient (CLI) | payer OTHER, SELFPAY ==
--- OUTSIDE RECORDS SUMMARY | 2025-08-24 07:30 | XMS RPT_ITS | CCD ---
Author Organization [facility] Care Team Providers Care Pottery Striper Name Role Phone Dina Wu Primary Care [...] Unavailable Annita Escobedo DO Primary Care Provider [phone] Annita Escobedo DO Primary Care Provider ANNITA ESCOBEDO Primary Care Unavailable LUZ PARSONS Attending Unavailable ANNITA ESCOBEDO Primary Care Unavailable [facility] Referring Unavailable LUISITO DONOVAN Attending Unavailable OLEGHE, EFEWONGBE Primary Care Unavailable LUISITO DONOVAN Attending Unavailable OLEGHE, EFEWONGBE Primary Care Unavailable LUISITO DONOVAN Attending Unavailable OLEGHE, EFEWONGBE Primary Care Unavailable MARIA E KNIGHT Attending Unavailable OLEGHE, EFEWONGBE Primary Care Unavailable MARIA E KNIGHT Referring Unavailable Oleghe, Efewongbe Primary Care Unavailable Eddie Zaldivar Attending Unavailable Oleghe, Efewongbe Primary Care Unavailable Oleghe, Efewongbe Referring Unavailable Oleghe, Efewongbe Attending Unavailable Oleghe, Efewongbe Primary Care Unavailable Oleghe, Efewongbe Referring Unavailable Oleghe, Efewongbe Attending Unavailable Oleghe, Efewongbe Primary Care Unavailable Oleghe, Efewongbe Attending Unavailable Oleghe, Efewongbe Referring Unavailable Oleghe, Efewongbe Referring Unavailable Oleghe, Efewongbe Attending Unavailable Oleghe, Efewongbe Primary Care Unavailable Oleghe, Efewongbe Primary Care Unavailable Eddie Zaldivar Attending Unavailable Oleghe, Efewongbe Attending Unavailable Oleghe, Efewongbe Referring Unavailable Oleghe, Efewongbe Primary Care Unavailable Oleghe, Efewongbe Attending Unavailable Oleghe, Efewongbe Referring Unavailable Oleghe, Efewongbe Primary Care Unavailable Raghunathan, Radha Na Referring Unavaila ble Raghunathan, Radha Na Attending Unavaila ble Oleghe, Efewongbe Primary Care Unavailable Raghunathan, Radha Na Attending Unavaila ble Oleghe, Efewongbe Primary Care Unavailable Raghunathan, Radha Na Referring Unavaila ble CRUZITOER RICHARD Referring Unavailable BOSTKI RICHARD Attending Unavailable Oleghe, Efewongbe Primary Care Unavailable [...] Primary Care Unavailable Oleghe, Efewongbe Referring Unavailable Eddie Vergara Attending Unavailable Oleghe, Efewongbe Attending Unavailable Oleghe, Efewongbe Referring Unavailable Oleghe, Efewongbe Primary Care Unavailable Oleghe, Efewongbe Primary Care Unavailable Eddie Zaldivar Attending Unavailable Allergies Allergy Classification Reported Allergen(s) Allergy Type Date of Onset Reaction(s) Facility (20 sources) Doxycycline; Translations: [DOXYCYCLINE] Drug Allergy 06-06-20 18 Nausea And Vomiting, Anxiety, Headache, Vomiting [place], [place] (20 sources) Latex; Translations: [LATEX] Propensity to adverse reactions to drug 12-10-19 16 Itching [place] (20 sources) levoFLOXacin; Translations: [LEVOFLOXACIN] Drug Allergy 09-04-19 12 Nausea And Vomiting, Other: See Comments, GI Upset [place] (20 sources) Prochlorperazine Drug Allergy 08-30-19 15 Other [place] (1 source) Sulfonamides (Antibiotic) Propensity to adverse reactions to drug 09-04-19 12 Nausea And Vomiting [place] (1 source) Other Propensity to adverse reactions 04-29-20 19 [place] (20 sources) Prochlorperazine Edisylate; Translations: [PROCHLORPERAZINE EDISYLATE] Propensity to adverse reactions to drug 08-30-19 15 Mental Status Change [place] (20 sources) Sulfonamides (Antibiotic) Drug Intolerance 09-04-19 12 Nausea And Vomiting [facility] (1 source) Amino Acids Drug Allergy [facility] (1 source) Doxycycline Drug Allergy [facility] (1 source) Latex Drug allergy (disorder) [facility] (1 source) Penicillins Drug allergy (disorder) [facility] (1 source) Prochlorperazine Drug Allergy [facility] (2 sources) Sulfonamides (Antibiotic); Translations: [SULFA (SULFONAMIDE ANTIBIOTICS)] Drug allergy (disorder) 09-04-19 12 [facility] (1 source) Penicillin; Translations: [PENICILLIN] Drug Allergy 12-10-[address] [facility] (3 sources) allyl sulfide Drug Allergy 07-16-20 24 [facility] (3 sources) Amino Acids Drug Allergy 02-19-20 25 [facility] (3 sources) Corticosteroids and derivatives Drug Allergy 04-19-20 24 [facility] (3 sources) Latex Allergy to substance 11-24-19 16 Dermatitis, Itching, Rash [facility] (3 sources) Penicillins Propensity to adverse reactions 11-24-19 16 Rash [facility] (3 sources) Sulfamethoxazole / Trimethoprim Drug Allergy 11-24-19 [facility] (1 source) Corticosteroids Drug allergy (disorder) 07-05-20 [facility] (1 source) Doxycycline Drug Allergy 07-05-20 [facility] (1 source) Garlic preparation Drug Allergy 07-05-20 [facility] (1 source) Latex Drug allergy (disorder) 07-05-20 [facility] (1 source) Prochlorperazine Drug Allergy 07-05-20 [facility] Medications Current Medications Medication Drug Class(es) [...] Start: 06-13-2021 take 2 tablets by mo uth once daily Cladribine(Multiple Sclerosis) (Mavenclad (10 Tablet [...] Start: 09-19-2017 take 1 tablet by lynda th every twelve hours Dalfampridine (Ampyra) 10 mg [...] 1 tablet by lynda th every afternoon. dextromethorphan hydrobromide 20 mg / quiNIDine sulfate 10 mg oral capsule (20 sources) Antiarrhythmic, Uncompetitive C-glwnax-A-aspartat e Receptor Antagonist, Cytochrome P450 2D6 Inhibitor, Sigma-1 Agonist Start: 09-27-2023 take 1 capsule by mouth every twelve hours NUEDEXTA 20-10 mg capsule Take 1 capsule by mouth every 12 hours. 09/27/2023 Active Start: 05-14-2023 take 1 capsule by mo ut twice daily Nuedexta 20-10 MG capsule Take 1 capsule by mouth 2 times daily. 05/14/2023 Active Comment on above: Take 1 capsule by mo ut every 12 hours. estrogens, esterified (residential) 0.625 mg / methylTESTOSTERone 1.25 mg oral [...] powder (20 sources) Polyene Antifungal Start: 04-08-20 nystatin (MYCOSTATIN) powder Apply to affected area [...] route daily 0 Active polyethylene glycol 3350 71196 mg powder for oral solution (10 sources) Osmotic Laxative Start: 09-13-19 Polyethylene Glycol 3350 (Miralax) 17 gram/dose powder Active 17 GM PO DAILY September 13, 2019 12:00am Tirzepatide (Mounjaro) 2.5 MG/0.5ML solution auto-injector (1 source) Tirzepatide (Mounjaro) 2.5 MG/0.5ML solution auto-injector Inject under the skin. Active triamcinolone acetonide 0.055 mg/actuat metered dose nasal spray (10 sources) Corticosteroid Start: 04-08-20 Triamcinolone Acetonide (Nasacort) 55 mcg aerosol,spray Active 1 SPRAY INTRANASAL DAILY April 07, 2019 11:00pm vibegron (GEMTESA) 75 mg tablet (10 sources) Start: 03-28-20 take 1 tablet by mouth once daily vibegron (GEMTESA) 75 mg tablet Indications: OAB (overactive bladder) Take 1 tablet by mouth once daily. 90 tablet 3 03/28/2025 Active Start: 03-21-2025 End: 03-28-2025 take 1 tablet by mouth once daily vibegron (GEMTESA) 75 mg tablet Indications: OAB (overactive bladder) Take 1 tablet by mouth once daily. 90 tablet 03/21/2025 03/28/2025 Discontinued Start: 03-21-2025 take 1 tablet by lynda th once daily vibegron (GEMTESA) 75 mg tablet Indications: OAB (overactive bladder) Take 1 tablet by mouth once daily. 90 tablet 03/21/2025 Active Start: 03-21-2024 End: 03-19-2025 take 1 tablet by mouth once daily vibegron (GEMTESA) 75 mg tablet Indications: OAB (overactive bladder) take 1 tablet by mouth every day 90 tablet 3 03/21/2024 03/19/2025 Discontinued Start: 03-21-2024 take 1 tablet by lynda th once daily vibegron (GEMTESA) 75 mg tablet Indications: OAB (overactive bladder) take 1 tablet by mouth every day 90 tablet 3 03/21/2024 Active Completed/Discontinued Medications Medication Drug Class(es) Dates Sig (Normalized) Sig (Original) [id number] 200 actuat albuterol 0.09 mg/actuat metered dose inhaler (20 sources) beta2-Adrenergic Agonist Start: 01-16-2022 take 1 puff(s) by inhalation every six hours Albuterol Sulfate (Proair Hfa) 90 mcg/actuation HFA aerosol inhaler Active 1 - 2 PUFF INHALATION EVERY 6 HOURS 8.5 May 25th, 2022 2:53pm Start: 06-01-2019 End: 04-30-2022 take 1 puff(s) by inhalation every six hours Albuterol Sulfate (Proair Hfa) 90 mcg/actuation HFA aerosol inhaler Discontinued 1 - 2 PUFF INHALATION EVERY 6 HOURS 8.January 16, 2022 1:53pm April 30, 2022 8:06am Start: 09-19-2017 albuterol HFA (PROVENTIL HFA, VENTOLIN HFA) 90 mcg/actuation inhaler albuterol 90 mcg/actuation aerosol inhaler albuterol 90 mcg/actuation aerosol inhaler 1 PUFF INHALATION NEEDED PRN For Sob &/Or Wheezing September 19, 2017 Active 09-19-2017 [facility] ([id number]) 09/19/2017 Active albuterol (PROVE NTIL) (2.5 MG/3ML) 0.083% nebulizer solution Inhale 2.5 mg into the lungs 0 Active Comment on above: albuterol 90 mcg/act uation aerosol inhaler albuterol 90 mcg/actuation aerosol inhaler 1 PUFF INHALATION NEEDED PRN For Sob &/Or Wheezing September 19, 2017 Active 09-19-2017 [facility] ([id number]) albuterol 90 mcg/actuation aerosol inhaler (10 sources) [...] chewable tablet (1 source) Bismuth Start: 01-14-20 18 End: 10-08-19 24 bismuth subsalicylate (PEPTO-BISMOL) 262 mg chew Indications: Helicobacter pylori infection CHEW (not swallow) 2 tablets 4 times daily, followed by a full glass of water 112 tablet 0 01/13/2018 10/08/2023 Discontinued Comment on above: CHEW (not swallow) 2 tablets 4 times daily, followed by a full glass of water onabotulinumtoxina 100 unt injection (20 sources) Acetylcholine Release Inhibitor Start: 05-25-20 End: 05-25-20 onabotulinumtoxinA (Botox) injection 300 Units Start: 05-25-2025 End: 05-25-2025 inject 300 [IU] by intramuscular injection once 300 Units, IntraMUSCular, Once, On Fri05/25/25 at 0800, For 1 dose Start: 02-18-2025 End: 02-18-2025 [...] 11:54am December 20, 2020 2:37pm Start: 11-21-2017 End: 03-28-2025 VITAMIN D-3 2,000 unit cap 5 ,000 Units. 11/21/2017 03/28/2025 Discontinued (Course of therapy completed) Start: 09-19-2017 End: 11-18-2018 take 2000 [IU] [...] SOPN SC injection Indications: special instructions per community relations manager 3 mg Indications: special instructions per community relations manager 0 03/09/2019 Active Start: 09-19-2017 End: 03-28-2025 inject 1.8 mg by subcutaneous injection once daily liraglutide (VICTOZA) 0.6 mg/ 0.1 ml subcutaneous pen injector inject 1.8 milligram subcutaneously daily 09/19/2017 03/28/2025 Discontinued (Course of therapy completed) Comment on above: inject 1.8 milligram subcutaneously [...] 1 tablet by lynda th once daily. 15 ml natalizumab 20 mg/ml [...] (1 source) Proton Pump Inhibitor Start: 12-31-19 18 End: 10-08-19 24 take 1 capsule by mouth once daily Omeprazole 40 mg capsule Indications: gastroesophageal reflux disease , heartburn Take 1 capsule by mouth once daily. 90 capsule 3 12/30/2017 10/08/2023 Discontinued Comment on above: Take 1 capsule by mo [facility] once daily. oxybutynin chloride 5 mg [...] Reductase Inhibitor Antibacterial, Sulfonamide Antimicrobial Start: 02-16-20 19 End: 02-23-20 19 take 1 tablet by mouth every twelve hours Sulfamethoxazole-Tr imethoprim (Bactrim Ds) 800-160 mg tablet Discontinued 1 TABLET PO Q12H 14 7 February 14, 2019 11:00pm February 21, 2019 11:07pm topiramate 50 mg oral tablet (10 sources) Start: 12-21-19 21 End: 04-17-20 22 take 1 tablet by mouth twice daily Topiramate (Topamax) 50 mg tablet Discontinued 50 MG PO TWICE A DAY December 19, 2020 11:00pm April 17, 2022 9:44am vibegron (GEMTESA) 75 mg tablet (15 sources) Start: 11-03-19 24 End: 03-21-20 24 take 1 tablet by [...] sources) Asthma; Translations: [Unspecified asthma, uncomplicated] Chronic Diabetes mellitus with complications (2 sources) Type 2 diabetes mellitus with other specified complication; Translations: [Type 2 diabetes mellitus with diabetic [...] Translations: [Urinary incontinence] Onset: 9 04-07-2019 Chronic Malaise and fatigue (11 sources) Fatigue; Translations: [Other fatigue] Episodic Mood disorders (12 sources) Depressive disorder; Translations: [Depression] Onset: 5 Chronic Multiple sclerosis (20 sources) Multiple sclerosis; Translations: [Multiple sclerosis] Onset: 6 Chronic Nonspecific chest pain (20 sources) Chest pain; Translations: [Chest pain, unspecified] Episodic Nutritional deficiencies (10 sources) Vitamin D deficiency; Translations: [Vitamin D deficiency, unspecified] Chronic Osteoarthritis (1 source) Primary osteoarthritis, right shoulder; Translations: [PRIMARY OSTEOARTHRITIS RT SHOULDER] Onset: 3 Chronic Other aftercare (2 sources) Patient encounter status; Translations: [Other residential (current) drug therapy] 10-24-2023 Episodic Other aftercare (1 source) Other residential (current) drug therapy; Translations: [Medication management] Onset: 5 Episodic Other connective tissue disease (4 sources) Foot pain; Translations: [Pain in right foot] Episodic Other connective tissue disease (4 sources) Pain in right foot; Translations: [Pain in limb] Episodic Other connective tissue disease (3 sources) Spasticity; Translations: [Cramp and spasm] 02-18-2023 Episodic Other diseases of bladder and urethra (9 sources) Neurogenic dysfunction of the urinary bladder; Translations: [Neuromuscular dysfunction of bladder, unspecified] Onset: 4 01-08-2024 Chronic Other diseases of bladder and urethra (5 sources) Overactive bladder; Translations: [Overactive bladder] 01-08-2024 Chronic Other diseases of bladder and urethra (1 source) Overactive bladder; Translations: [OAB (overactive bladder)] Onset: 5 Chronic Other gastrointestinal disorders (20 sources) Irritable [...] apnea (adult) (pediatric)] Chronic Residual codes; unclassified (7 sources) Obstructive sleep apnea (adult) (pediatric); Translations: [Obstructive sleep apnea (adult)(pediatric)] Onset: 5 Chronic Skin and subcutaneous tissue infections (14 sources) Abscess of groin; Translations: [Cutaneous abscess of groin] Episodic Spondylosis; intervertebral disc disorders; other back problems (20 sources) Chronic back pain ; Translations: [Dorsalgia, unspecified] Onset: 4 10-08-2023 Episodic Syncope (1 source) Loss of consciousness; Translations: [Syncope and collapse] 11-21-2023 Episodic Thyroid disorders (11 sources) Hypothyroidism; Translations: [Hypothyroidism, unspecified] Onset: 5 Chronic Unclassified (1 source) New Patient Onset: 4 Unclassified (1 source) Multiple sclerosis, unspecified; Translations: [Multiple sclerosis, unspecified] Onset: 3 Unclassified (2 sources) Procedure; Translations: [Procedure] Onset: [...] [Dizziness and giddiness] Onset: 10-29-2017 12-02-2017 Episodic Genitourinary symptoms and ill-defined conditions (2 sources) Urinary symptoms ; Translations: [Unspecified symptoms and signs involving the genitourinary system] Onset: 08-04-2024 08-03-2024 Episodic Hemorrhoids (20 sources) Hemorrhoids; Translations: [Unspecified [...] [CANNABIS USE UNS UNCOMPLICATED] Onset: 03-02-2023 Episodic Unclassified (1 source) Multiple sclerosis, unspecified; Translations: [Multiple sclerosis, unspecified] Onset: 05-25-2025 Results Test Name Value Interpretation Reference Range Facility MR/BPon 07-05-2025 MR/BP [facility] [address], [address] [place] [address] OFFICE VISIT Date of Service: 07/05/25 MR#: [id number] Acct: [id number] Name: SARIKA AVILA Rep #: [id number] : 1970 Provider: Dr. Eddie Tran se, DO Age/Sex: 54/F Location: [facility].BP Status: Signed Intake Vital Signs 05/16/25 10:05 07/05/25 07:02 Height 5 ft 2 in 5 ft 2 in Weight: 225 lb BMI 41.1 BP 118/72 114/73 Blood Pressure Location Rt brachial Lt brachial Position Sitting Sitting Respiration 14 16 Pulse 72 67 Pulse Source Monitor Monitor Temp 97.4 F L Pulse Oximetry (%) 96 Oxygen Delivery Method room air BP Intake Visit Reasons: 4 M FU Accompanied by: Self Allergies Corticosteroids (Glucocorticoids) (steroids) Allergy (Mild, Verified 07/05/25 07:04) psychosis doxycycline Allergy (Verified 07/05/25 07:04) Vomiting latex Allergy (Verified 07/05/25 07:04) Rash prochlorperazine (From Compazine) Allergy (Verified 07/05/25 07:04) Other garlic Adverse Reaction (Mild, Verified 07/05/25 07:04) vomitting Medications ???Medication ???Instructions ???Recorded ???Confirmed ???Type folic acid 800 mcg tablet 800 mcg PO DAILY 09/19/17 07/05/25 History modafinil 200 mg tablet 200 mg PO DAILY 09/19/17 07/05/25 History triamcinolone acetonide 55 mcg 1 spray intranasal DAILY 04/08/19 07/05/25 History nasal spray aerosol (Nasacort) polyethylene glycol 3350 17 17 g PO DAILY PRN Constipation 07/05/25 History gram/dose oral powder (Miralax) Handicap Placard #1 ea 07/27/21 07/05/25 Rx acyclovir 200 mg capsule 400 mg PO BID 07/27/21 07/05/25 Hi story baclofen 10 mg tablet 10 mg PO .QID 07/27/21 07/05/25 Hi story cladribine(multiple sclerosis) 10 10 mg PO DAILY 10/02/22 07/05/25 History mg tablet (Mavenclad (8 tablet pack)) levothyroxine 88 mcg tablet 88 mcg PO DAILY@0600 #90 tabs 04/0 03/1607/05/25 Rx dextromethorphan 20 mg-quinidine 1 cap PO Q12H 05/15/23 07/05/25 Hi story 10 mg capsule (Nuedexta) metronidazole 0.75 % topical gel 1 applic topical QHS 05/15/2306/25 History pen needle, diabetic 32 gauge x #100 ea 08/20/24 07/05/25 Rx 1/ (BD Ultra-Fine Micro Pen Needle) albuterol sulfate 90 mcg/actuation 1 - 2 puff inhalation Q6H PRN 07/05/25 Rx aerosol inhaler shortness of breath or wheezing #8.5 grams gabapentin 100 mg capsule 100 mg PO TID 12/09/24 07/05/25 Hi story triamterene 37.5 See Rx Instructions .Route 5 07/05/25 Rx mg-hydrochlorothiazide 25 mg tablet .COMPLEX #90 tabs CPAP - Continuous Positive Airway 05/20/25 07/05/25 History Pressure([facility] INFORMATIONAL USE ONLY) esterified 1 tab PO DAILY #30 tabs 06/13/25 1 09/04/24 Rx estrogens-methyltestost erone 0.625 mg-1.25 mg tablet bupropion HCl 300 mg 24 hr tablet, 300 mg PO QAM 90 days #90 tabs 1 09/04/24 07/05/25 Rx extended release desvenlafaxine succinate 50 mg See Rx Instructions .Route 5 07/05/25 Rx tablet,extended release 24 hr .COMPLEX #90 tabs tirzepatide 5 mg/0.5 mL 5 mg subcut QWEEK 07/05/25 5 History subcutaneous pen injector (Edson) [facility] Medical History (Updated 05/16/25 @ 11:[address] Dina Wu MD) Health care maintenance Lumbar pain Recurrent falls Chronic pain Sprain of left [...] CVA (cerebral vascular accident) Grandfather Angina pectoris Myoca (more content not included)... Normal [facility] Progress Noteon 05-25-2025 Progress Note Administrations This Visit onabotulinumtoxin A (BOTOX) injection 200 Units Admin Date 05/25/25 Action Given Dose 200 Units Route IntraMUSCular Site Other Administered By PALOMO Nam CNP Ordering Provider: PALOMO Nam CNP NDC: 3367-5513-18 Lot#: [id number] Dent Remover: Allergan Patient Supplied? No Normal [facility] Office Vis iton 05-16-2025 Internal Medicine Office Visit [facility] [address] [place] [address] OFFICE VISIT Date of Service: 05/16/25 MR#: [id number] Acct: [id number] Name: SARIKA AVILA Harper Rep #: [id number] : 1970 Provider: Dr. Dina hadley MD Age/Sex: 54/F Location: [facility] Status: Signed Intake Vital Signs 03/11/25 08:05/16/25 10:05 Height 5 ft 3 in 5 ft 2 in Weight: 225 lb BMI 41.1 BP 118/72 Blood Pressure Location Rt brachial Position Sitting Respiration 14 Pulse 72 Pulse Source Monitor Temp 97.4 F L Temp Source Temporal Pulse Oximetry (%) 96 Oxygen Delivery Method room air Intake Visit Reasons: CPAP Compliance Chief Complaint: Follow-up chronic conditions Steel Sampler Required: No Accompanied by: Self Is patient in pain?: Yes (generalized ) Pain scale (1-10): 4 Allergies Corticosteroids (Glucocorticoids) (steroids) Allergy (Mild, Verified 05/16/25 09:59) psychosis doxycycline Allergy (Verified 05/16/25 09:59) Vomiting latex Allergy (Verified 05/16/25 09:59) Rash prochlorperazine (From Compazine) Allergy (Verified 05/16/25 09:59) Other garlic Adverse Reaction (Mild, Verified 05/16/25 09:59) vomitting Medications ???Medication ???Instructions ???Recorded ???Confirmed ???Type folic acid 800 mcg tablet 800 mcg PO DAILY 09/19/17 05/16/25 History modafinil 200 mg tablet 200 mg PO DAILY 09/19/17 05/16/25 History triamcinolone acetonide 55 mcg 1 spray intranasal DAILY 04/08/19 05/16/25 History nasal spray aerosol (Nasacort) polyethylene glycol 3350 17 17 g PO DAILY PRN Constipation 05/16/25 History gram/dose oral powder (Miralax) Handicap Placard #1 ea 07/27/21 03/11/25 Rx acyclovir 200 mg capsule 400 mg PO BID 07/27/21 05/16/25 Hi story baclofen 10 mg tablet 10 mg PO .QID 07/27/21 05/16/25 Hi story cladribine(multiple sclerosis) 10 10 mg PO DAILY 10/02/22 05/16/25 History mg tablet (Mavenclad (8 tablet pack)) levothyroxine 88 mcg tablet 88 mcg PO DAILY@0600 #90 tabs 04/0 03/1605/16/25 Rx dextromethorphan 20 mg-quinidine 1 cap PO Q12H 05/15/23 05/16/25 Hi story 10 mg capsule (Nuedexta) metronidazole 0.75 % topical gel 1 applic topical QHS 05/15/2304/26 History liraglutide 0.6 mg/0.1 mL (18 mg/3 1.8 mg (0.3 mL) subcut Q24H 3 05/16/25 Rx mL) subcutaneous pen injector months #27 mL (Victoza 3-Jian) pen needle, diabetic 32 gauge x #100 ea 08/20/24 03/11/25 Rx 1/4 (BD Ultra-Fine Micro Pen Needle) albuterol sulfate 90 mcg/actuation 1 - 2 puff inhalation Q6H PRN 05/16/25 Rx aerosol inhaler shortness of breath or wheezing #8.5 grams bupropion HCl 300 mg 24 hr tablet, 300 mg PO QAM 90 days #90 tabs 0 12/09/24 05/16/25 Rx extended release gabapentin 100 mg capsule 100 mg PO TID 12/09/24 05/16/25 Hi story desvenlafaxine succinate 50 mg See Rx Instructions .Route 5 05/16/25 Rx tablet,extended release 24 hr .COMPLEX #90 tabs triamterene 37.5 See Rx Instructions .Route 5 05/16/25 Rx mg-hydrochlorothiazide 25 mg tablet .COMPLEX #90 tabs esterified 1 tab PO DAILY #30 tabs 05/09/25 0 05/16/25 Rx estrogens-methyltestost erone 0.625 mg-1.25 mg tablet [facility] Medical History (Updated 05/16/25 @ 11:[address] Dina Wu MD) Health care maintenance Lumbar pain Recurrent falls Chronic pain Sprain of left [...] Kidney disease Mental disorder Respiratory abnormality CVA (ce (more content not included)... Normal [facility] Free T3on 05-10-2025 Free T3 [Mass/Vol] 2.7 pg/mL Normal 2.18-3.98 [facility] Comment on above: Performed By: #### L 506.0400, L501.9520, L501.87662, L501.9985 ####[facility] [id number] [place], [place], [id number] Hemoglobin A1con 05-10-2025 HbA1c (Bld) [Mass fraction] 5.6 % Normal <=5.6 [facility] Comment on above: Result Comment: Norm al < 5.7 % Prediabetic 5.7 - 6.4 % Diabetic >or= 6.5 % Please note range changes. Performed By: #### L 506.0400, L501.9520, L501.43676, L501.9985 ####[facility] [address] [place], [address] T4 Free Directon 05-10-2025 T4 FREE DIRECT 1.40 ng/dL Normal 0.76-1.46 [facility] Comment on above: Performed By: #### L 506.0400, L501.9520, L501.51425, L501.9985 ####[facility] [address] [place], [address] Thyroid Stim Hormone (TSH)on 05-10-2025 TSH 1.130 uIU/mL Normal 0.300-4.200 [facility] Comment on above: Performed By: #### L 506.0400, L501.9520, L501.10958, L501.9985 ####[facility] [id number] [place], [place], [address] 36on 04-19-2025 36 The patient has upcoming Botox appt on 05/20/2026. The Botox is approved under the patient's Medical Benefit and should be done as Buy and Bill. See Media tab for Approval letter. BOTOX IS BUY AND BILL!!! Medication: Botox # of Unit to be Administered: 300 units Prior Authorization: Approved (medical benefit) [place] reference #: [id number] Approval dates: 05/20/2025-05/19/2026 Number of units approved: 2,000.00 units (5 doses) Normal [facility] 36 ----- Message from Gladys Sanders sent at 04/19/2025 9:06 AM EDT ----- Regarding: FW: Boterna MENDEZ ----- Message ----- From: Gladys Underwood LPN Sent: 04/18/2025 12:00 AM EDT To: [facility] Clinical Director Of People Subject: FW: Jailene PA Will need to submit auth closer to next appointment date in April. New reminder set. ----- Message ----- From: Gladys Underwood LPN Sent: 02/07/2025 9:10 AM EDT To: Gladys Underwood LPN Subject: FW: Botox PA ----- Message ----- From: Karina Humphries MA Sent: 02/07/2025 12:00 AM EDT To: [facility] Clinical Director Of People Subject: Jailene MENDEZ Pt's Botox auth will be expiring 03/09/2025. Will need to be submitted to insurance/medical benefit. Normal [facility] PT D/C Summary (1)on 025 PT D/C Summary (1) [facility] [address] [place] [address] / REHABILITATION SERVICES DISCHARGE SUMMARY MR#: [id number] Acct: [id number] Name: SARIKA AVILA Rep #: [id number] : 1970 54 From: Allan Tejeda DPT, OCS, CSCS Referring Dr.: Dr. Dina Wu MD Status: REG RCR Insurance: [facility] SELF PAY INSURANCE Discharge Summary D/C summary: It has been my pleasure to treat SARIKA AVILA referred by Dr. Dina Wu MD, with the diagnosis of chronic back pain for a total of 8 visit(s). Discharge Date: 04/19/25 Please see the following information for a summary of their discharge status. Subjective Subjective: I can still get to my feet but whenever I do more, I gt more pain. Worse with more walking. Has it in both legs. Has not thought about lightening load. Offered more baclofena dn gabapentin but does not want to with work. Saw pain management and had injections in facet joint Pain LBP, R leg: Pain Intensity (Out of 10): 5 Overall Improvement % Improvement: 80 Objective Objective/Function: Walking with R foot turned out and stiff knee but can correct with VC, painful in LB either way. Subjectively c/o more pain and one month late on f/u with pain mgmt. Goals Goal 1:: reach feet to put on socks and shoes easilya dn without pain Goal Progress: Goal Met Goal 2:: I approrpiate HEP to limit back problems and stretech R LE(and possibly wellness routine ) Goal Progress: Goal Met Goal 3:: sleep without waking due to pain Goal Progress: Progressing Goal 4:: Walk FGA /30 without fear Goal Progress: not tested, pain. Goal 5:: LB pain 75% better and 1/10 at worst Goal Progress: 80% Plan Plan: d/c, pt to pain mgmt and to continue HEP, Aquatic therapy should be considered if pain mgmt and HEP do not get her where she wants to be. D/C Information Discharge Comments: Pt to check with pain management adn continue HEP d/c sentence: If there are questions or concerns regarding this patient's physical therapy, please feel free to call me at [phone]. Thank you for the referral of this patient. Sincerely, Allan Tejeda, DPT, OCS, CSCS Balance/Gait/Functional tests Balance/Special Test Scores Oswestry Low Back Score: 29 Improvement % Improvement: 80 04/19/25 1733 CC: Dr. Dina Wu MD EBG Signed Normal [facility] CBC W/Diff, Automatedon 02-22 Absolute Lymph 1.72 X10 3/uL Normal 0.83-4.51 [facility] Comment on above: Performed By: #### L 100.0100, L506.1001, L500.4100, L500.4050 #### [facility] [address] [place], [address] Absolute Neut 4.6 X10 3/uL Normal 2.0-7.7 [facility] Comment on above: Performed By: #### L 100.0100, L506.1001, L500.4100, L500.4050 #### [facility] [address] [place], [address] Basophils/100 WBC (Bld) 0.7 % Normal 0-1 [facility] Comment on above: Performed By: #### L 100.0100, L506.1001, L500.4100, L500.4050 #### [facility] [address] [place], [address] Eosinophils/100 WBC (Bld) 1.2 % Normal 0-5 [facility] Comment on above: Performed By: #### L 100.0100, L506.1001, L500.4100, L500.4050 #### [facility] [address] [place], [address] Erythrocyte distribution width (RBC) [Ratio] 13.1 % Normal 11.6-14.6 [facility] Comment on above: Performed By: #### L 100.0100, L506.1001, L500.4100, L500.4050 #### [facility] [address] [place], [address] Hematocrit (Bld) [Volume fraction] 41.9 % Normal 37-47 [facility] Comment on above: Performed By: #### L 100.0100, L506.1001, L500.4100, L500.4050 #### [facility] [address] [place], [address] Hemoglobin (Bld) [Mass/Vol] 14.4 g/dL Normal 12.0-15.0 [facility] Comment on above: Performed By: #### L 100.0100, L506.1001, L500.4100, L500.4050 #### [facility] [address] [place], [address] IG% 0.300 Normal 0.0-0.9 [facility] Comment on above: Result Comment: IG% - Immature Granulocytes (promyelocytes, myelocytes and metamyelocytes) > 1% indicates that a LEFT SHIFT is Present. Performed By: #### L 100.0100, L506.1001, L500.4100, L500.4050 #### [facility] [address] [place], [address] Lymphocytes/100 WBC (Bld) 24.8 % Normal 19-41 [facility] Comment on above: Performed By: #### L 100.0100, L506.1001, L500.4100, L500.4050 #### [facility] [address] [place], [address] MCH (RBC) [Entitic mass] 34.2 pg High 27.0-32.0 [facility] Comment on above: Performed By: #### L 100.0100, L506.1001, L500.4100, L500.4050 #### [facility] [address] [place], [address] MCHC (RBC) [Mass/Vol] 34.4 g/dL Normal 32-36 [facility] Comment on above: Performed By: #### L 100.0100, L506.1001, L500.4100, L500.4050 #### [facility] [address] [place], [address] MCV (RBC) [Entitic vol] 99.5 fL High 81-99 [facility] Comment on above: Performed By: #### L 100.0100, L506.1001, L500.4100, L500.4050 #### [facility] [address] [place] [place], [address] Monocytes/100 WBC (Bld) 7.4 % Normal 0-10 [facility] Comment on above: Performed By: #### L 100.0100, L506.1001, L500.4100, L500.4050 #### [facility] [address] [place], [address] Neutrophils/100 WBC (Bld) 65.6 % Normal 47-70 [facility] Comment on above: Performed By: #### L 100.0100, L506.1001, L500.4100, L500.4050 #### [facility] [address] [place], [address] Nucleated RBC (Bld) [#/Vol] 0 10*3/uL Normal 0-5 [facility] Comment on above: Performed By: #### L 100.0100, L506.1001, L500.4100, L500.4050 #### [facility] [address] [place], [address] Platelet mean volume (Bld) [Entitic vol] 8.4 fL Normal 6.2-12.0 [facility] Comment on above: Performed By: #### L 100.0100, L506.1001, L500.4100, L500.4050 #### [facility] [address] [place], [address] Platelets (Bld) [#/Vol] 255 10*3/uL Normal 150-450 [facility] Comment on above: Performed By: #### L 100.0100, L506.1001, L500.4100, L500.4050 #### [facility] [address] [place], [address] RBC (Bld) [#/Vol] 4.21 10*6/uL Normal 4.2-5.4 [facility] Comment on above: Performed By: #### L 100.0100, L506.1001, L500.4100, L500.4050 #### [facility] [address] [place], [address] RDW SD 47.6 fl High 35.1-43.9 [facility] Comment on above: Performed By: #### L 100.0100, L506.1001, L500.4100, L500.4050 #### [facility] [address] [place], [address] WBC (Bld) [#/Vol] 6.9 10*3/uL Normal 4.4-11.0 [facility] Comment on above: Performed By: #### L 100.0100, L506.1001, L500.4100, L500.4050 #### [facility] [address] [place], [address] Comprehensive Metabolic Prof [facility] 03-12-2025 Albumin [Mass/Vol] 4.4 g/dL Normal 3.5-5.0 [facility] Comment on above: Performed By: #### L 100.0100, L506.1001, L500.4100, L500.4050 ####[facility] [address] [place], [address] Albumin/Globulin [Mass ratio] 1.5 {ratio} Normal 0.9-2.4 [facility] Comment on above: Performed By: #### L 100.0100, L506.1001, L500.4100, L500.4050 ####[facility] [address] [place], [address] ALK PHOS 82 U/L Normal 35-104 [facility] Comment on above: Performed By: #### L 100.0100, L506.1001, L500.4100, L500.4050 ####[facility] [address] [place], [address] ALT [Catalytic activity/Vol] 15 U/L Normal <=34 [facility] Comment on above: Performed By: #### L 100.0100, L506.1001, L500.4100, L500.4050 ####[facility] [address] [place], [address] AST [Catalytic activity/Vol] 21 U/L Normal <=31 [facility] Comment on above: Performed By: #### L 100.0100, L506.1001, L500.4100, L500.4050 ####[facility] [address] [place], [address] Bilirubin [Mass/Vol] 0.39 mg/dL Normal 0.00-1.[address] [facility] Comment on above: Performed By: #### L 100.0100, L506.1001, L500.4100, L500.4050 ####[facility] [address] [place], [address] BUN/CRE 11.5 RATIO Normal 10-20 [facility] Comment on above: Performed By: #### L 100.0100, L506.1001, L500.4100, L500.4050 ####[facility] [address] [place], [address] Calcium [Mass/Vol] 10.0 mg/dL Normal 7.6-11.0 [facility] Comment on above: Performed By: #### L 100.0100, L506.1001, L500.4100, L500.4050 ####[facility] [address] [place], [address] Chloride [Moles/Vol] 99 mmol/L Normal 98-[address] [facility] Comment on above: Performed By: #### L 100.0100, L506.1001, L500.4100, L500.4050 ####[facility] [address] [place], [address] CO2 [Moles/Vol] 26.8 mmol/L Normal 21.0-32.0 [facility] Comment on above: Performed By: #### L 100.0100, L506.1001, L500.4100, L500.4050 ####[facility] [address] [place], [address] Creatinine [Mass/Vol] 1.51 mg/dL High 0.70-1.20 [facility] Comment on above: Performed By: #### L 100.0100, L506.1001, L500.4100, L500.4050 ####[facility] [address] [place], [address] GAP 12 Normal 5-15 [facility] Comment on above: Performed By: #### L 100.0100, L506.1001, L500.4100, L500.4050 ####[facility] [address] [place], [address] GFR/1.73 sq M.predicted among non-blacks MDRD (S/P/Bld) [Vol rate/Area] 41 mL/min/{1.73_m2} Low >60 [facility] Comment on above: Result Comment: mL/m in/1.73m2 CKD-EPI Creatinine Equation (2020) Performed By: #### L 100.0100, L506.1001, L500.4100, L500.4050 ####[facility] [address] [place], [address] Globulin (S) [Mass/Vol] 3.0 g/dL Normal 2.2-4.2 [facility] Comment on above: Performed By: #### L 100.0100, L506.1001, L500.4100, L500.4050 ####[facility] [address] [place], [address] Glucose [Mass/Vol] 90 mg/dL Normal 70-99 [facility] Comment on above: Performed By: #### L 100.0100, L506.1001, L500.4100, L500.4050 ####[facility] [address] [place], [address] Potassium [Moles/Vol] 4.0 mmol/L Normal 3.3-5.1 [facility] Comment on above: Performed By: #### L 100.0100, L506.1001, L500.4100, L500.4050 ####[facility] [address] [place], [address] Sodium [Moles/Vol] 138 mmol/L Normal 133-145 [facility] Comment on above: Performed By: #### L 100.0100, L506.1001, L500.4100, L500.4050 ####[facility] [address] [place], [address] T PROT 7.3 g/dL Normal 5.9-8.4 [facility] Comment on above: Performed By: #### L 100.0100, L506.1001, L500.4100, L500.4050 ####[facility] [address] [place], [address] Urea nitrogen [Mass/Vol] 17 mg/dL Normal - [facility] Comment on above: Performed By: #### L 100.0100, L506.1001, L500.4100, L500.4050 ####[facility] [address] [place], [address] Lipid Profileon 03-12-2025 CHOL:HDL 3.08 Normal [facility] Comment on above: Performed By: #### L 100.0100, L506.1001, L500.4100, L500.4050 ####[facility] [address] [place], [address] Cholesterol [Mass/Vol] 159 mg/dL Normal <=200 [facility] Comment on above: Result Comment: Chol esterol level, Desirable <200 mg/dL Borderline high cholesterol 200-239 mg/dL High cholesterol >=240 mg/dL Recommendations of the NCEP Adult Treatment Panel for the following risk-cutoff thresholds for the [place] population. Performed By: #### L 100.0100, L506.1001, L500.4100, L500.4050 ####[facility] [address] [place], [address] Cholesterol in HDL [Mass/Vol] 52 mg/dL Normal [facility] Comment on above: Result Comment: Barbara onal Cholesterol Education Program (NCEP) guidelines: <40 mg/dL: Low HDL-cholesterol (major risk factor for CHD) >= 60 mg/dL: High HDL-cholesterol (negative risk factor for CHD) HDL-cholesterol is affected by a number of factors, e.g. smoking, exercise, hormones, sex and age. Performed By: #### L 100.0100, L506.1001, L500.4100, L500.4050 ####[facility] [address] [place], [address] Cholesterol in LDL [Mass/Vol] 96 mg/dL Normal [facility] Comment on above: Result Comment: Bord ohsjdg=430-848 mg/dL Higher Acww=466 mg/dL or greater Performed By: #### L 100.0100, L506.1001, L500.4100, L500.4050 ####[facility] [address] [place], [address] Cholesterol in VLDL [Mass/Vol] 12 mg/dL Normal 5-40 [facility] Comment on above: Performed By: #### L 100.0100, L506.1001, L500.4100, L500.4050 ####[facility] [address] [place], [address] Triglyceride [Mass/Vol] 59 mg/dL Normal [facility] Comment on above: Result Comment: The drugs N-Acetylcysteine and Metamizole may falsely depress this assay. Normal range: <150 mg/dL Borderline High: 150-199 mg/dL High: 200-499 mg/dL Very High: >500 mg/dL Performed By: #### L 100.0100, L506.1001, L500.4100, L500.4050 ####[facility] [address] [place], [address] Vitamin D,25 Hydroxyon 03-12 Vitamin D 25-OH 52.7 ng/mL Normal 30-100 [facility] Comment on above: Result Comment: Alysa min D Status Deficiency: <20 ng/mL (50nmol/L) Insufficiency: 20-30 ng/mL (50-75 nmol/L) Sufficiency: 30-100 ng/mL (75-250 nmol/L) Toxicity: >100 ng/mL (>250 nmol/L) Performed By: #### L 100.0100, L506.1001, L500.4100, L500.4050 ####[facility] [address] [place], [address] Internal Medicine Office Vis jair 03-11-2025 Internal Medicine Office Visit [facility] [address] [place] [address] OFFICE VISIT Date of Service: 03/11/25 MR#: [id number] Acct: [id number] Name: SARIKA AVILA Rep #: [id number] : 1970 Provider: Dr. Dina hadley MD Age/Sex: 54/F Location: [facility] Status: Signed Intake Vital Signs 12/03/24 09:20 03/10/25 07:29 03/11/25 08:22 Height 5 ft 3 in 5 ft 3 in 5 ft 3 in Weight: 225 lb 4 oz BMI 39.9 BP 112/82 H Blood Pressure Location Rt brachial Position Sitting Respiration 16 Pulse 82 Pulse Source Monitor Temp 97.7 F L Temp Source Temporal Pulse Oximetry (%) 96 Oxygen Delivery Method room air Intake Visit Reasons: 3 M FU Chief Complaint: 3m f/u Steel Sampler Required: No Accompanied by: Self Is patient in pain?: No Allergies Corticosteroids (Glucocorticoids) (steroids) Allergy (Mild, Verified 03/11/25 08:17) psychosis doxycycline Allergy (Verified 03/11/25 08:17) Vomiting latex Allergy (Verified 03/11/25 08:17) Rash prochlorperazine (From Compazine) Allergy (Verified 03/11/25 08:17) Other garlic Adverse Reaction (Mild, Verified 03/11/25 08:17) vomitting Medications ???Medication ???Instructions ???Recorded ???Confirmed ???Type folic acid 800 mcg tablet 800 mcg PO DAILY 09/19/17 03/11/25 History modafinil 200 mg tablet 200 mg PO DAILY 09/19/17 03/11/25 History triamcinolone acetonide 55 mcg 1 spray intranasal DAILY 04/08/19 03/11/25 History nasal spray aerosol (Nasacort) polyethylene glycol 3350 17 17 g PO DAILY PRN Constipation 03/11/25 History gram/dose oral powder (Miralax) Handicap Placard #1 ea 07/27/21 03/11/25 Rx acyclovir 200 mg capsule 400 mg PO BID 07/27/21 03/11/25 Hi story baclofen 10 mg tablet 10 mg PO .QID 07/27/21 03/11/25 Hi story cladribine(multiple sclerosis) 10 10 mg PO DAILY 10/02/22 03/11/25 History mg tablet (Mavenclad (8 tablet pack)) levothyroxine 88 mcg tablet 88 mcg PO DAILY@0600 #90 tabs 04/0 03/1603/11/25 Rx dextromethorphan 20 mg-quinidine 1 cap PO Q12H 05/15/23 03/11/25 Hi story 10 mg capsule (Nuedexta) metronidazole 0.75 % topical gel 1 applic topical QHS 05/15/2302/22 History triamterene 37.5 See Rx Instructions .Route 4 03/11/25 Rx mg-hydrochlorothiazide 25 mg tablet .COMPLEX #90 tabs liraglutide 0.6 mg/0.1 mL (18 mg/3 1.8 mg (0.3 mL) subcut Q24H 3 03/11/25 Rx mL) subcutaneous pen injector months #27 mL (Victoza 3-Jian) pen needle, diabetic 32 gauge x #100 ea 08/20/24 03/11/25 Rx 1/4 (BD Ultra-Fine Micro Pen Needle) albuterol sulfate 90 mcg/actuation 1 - 2 puff inhalation Q6H PRN 03/11/25 Rx aerosol inhaler shortness of breath or wheezing #8.5 grams bupropion HCl 300 mg 24 hr tablet, 300 mg PO QAM 90 days #90 tabs 0 12/09/24 03/11/25 Rx extended release gabapentin 100 mg capsule 100 mg PO TID 12/09/24 03/11/25 Hi story desvenlafaxine succinate 50 mg See Rx Instructions .Route 5 03/11/25 Rx tablet,extended release 24 hr .COMPLEX #90 tabs esterified 1 tab PO DAILY #30 tabs 02/10/25 0 03/11/25 Rx estrogens-methyltestost erone 0.625 mg-1.25 mg tablet PFSH Medical History (Updated 03/11/25 @ 12:[address] Dina Wu MD) Recurrent falls [...] Grandfather Angina pectoris Myocardial infarction Grandmother Arthritis Hypertens (more content not included)... [facility] MR/BMS.BPon 03-10-2025 MR/BMS.BP [facility] [address] [place] [address], [address] [place] [address] OFFICE VISIT Date of Service: 03/10/25 MR#: [id number] Acct: [id number] Name: SARIKA AVILA Rep #: [id number] : 1970 Provider: Dr. Eddie Tran se, DO Age/Sex: 54/F Location: [facility] Status: Signed Intake Vital Signs 12/09/24 07:30 03/10/25 07:29 Height 5 ft 3 in 5 ft 3 in Weight: 222 lb BMI 39.3 BP 140/79 H Blood Pressure Location Lt brachial Position Sitting Respiration 16 Pulse 80 Pulse Source Monitor BP Intake Visit Reasons: 2-3mfu Accompanied by: Self Allergies Corticosteroids (Glucocorticoids) (steroids) Allergy (Mild, Verified 12/09/24 07:31) psychosis doxycycline Allergy (Verified 12/09/24 07:31) Vomiting latex Allergy (Verified 12/09/24 07:31) Rash prochlorperazine (From Compazine) Allergy (Verified 12/09/24 07:31) Other garlic Adverse Reaction (Mild, Verified 12/09/24 07:31) vomitting Medications ???Medication ???Instructions ???Recorded ???Confirmed ???Type folic acid 800 mcg tablet 800 mcg PO DAILY 09/19/17 03/10/25 History modafinil 200 mg tablet 200 mg PO DAILY 09/19/17 03/10/25 History triamcinolone acetonide 55 mcg 1 spray intranasal DAILY 04/08/19 03/10/25 History nasal spray aerosol (Nasacort) polyethylene glycol 3350 17 17 g PO DAILY PRN Constipation 03/10/25 History gram/dose oral powder (Miralax) Handicap Placard #1 ea 07/27/21 03/10/25 Rx acyclovir 200 mg capsule 400 mg PO BID 07/27/21 03/10/25 Hi story baclofen 10 mg tablet 10 mg PO .QID 07/27/21 03/10/25 Hi story cladribine(multiple sclerosis) 10 10 mg PO DAILY 10/02/22 03/10/25 History mg tablet (Mavenclad (8 tablet pack)) levothyroxine 88 mcg tablet 88 mcg PO DAILY@0600 #90 tabs 04/0 03/1603/10/25 Rx dextromethorphan 20 mg-quinidine 1 cap PO Q12H 05/15/23 03/10/25 Hi story 10 mg capsule (Nuedexta) metronidazole 0.75 % topical gel 1 applic topical QHS 05/15/2302/22 History triamterene 37.5 See Rx Instructions .Route 08/09/ 4 03/10/25 Rx mg-hydrochlorothiazide 25 mg tablet .COMPLEX #90 tabs liraglutide 0.6 mg/0.1 mL (18 mg/3 1.8 mg (0.3 mL) subcut Q24H 3 03/10/25 Rx mL) subcutaneous pen injector months #27 mL (Victoza 3-Jian) pen needle, diabetic 32 gauge x #100 ea 08/20/24 03/10/25 Rx 1/4 (BD Ultra-Fine Micro Pen Needle) albuterol sulfate 90 mcg/actuation 1 - 2 puff inhalation Q6H PRN 03/10/25 Rx aerosol inhaler shortness of breath or wheezing #8.5 grams bupropion HCl 300 mg 24 hr tablet, 300 mg PO QAM 90 days #90 tabs 0 12/09/24 03/10/25 Rx extended release gabapentin 100 mg capsule 100 mg PO TID 12/09/24 03/10/25 Hi story desvenlafaxine succinate 50 mg See Rx Instructions .Route 5 03/10/25 Rx tablet,extended release 24 hr .COMPLEX #90 tabs esterified 1 tab PO DAILY #30 tabs 02/10/25 0 03/10/25 Rx estrogens-methyltestost erone 0.625 mg-1.25 mg tablet PFSH Medical History (Updated 12/03/24 @ 13:37 [...] Parkinsons disease Social History Smoking Status: Former (more content not included)... [facility] Inital Evaluation (1) - PTon 02-21-2025 Inital Evaluation (1) - PT [facility] [address] [place] [address] / REHABILITATION SERVICES INITIAL EVALUATION MR#: [id number] Acct: [id number] Name: SARIKA AVILA Rep #: [id number] : 1970 54 From: Allan Tejeda DPT, OCS, CSCS Referring Dr.: Dr. Dina Wu MD Status: REG RCR Insurance: [facility] SELF PAY INSURANCE Patient's Visit Information Visit Information Visit Information: SARIKA AVILA is a 54 year old F referred to Physical Therapy by Dr. Dina Wu MD with a diagnosis of chronic back pain. Date of Evaluation: 02/21/25 Physical Therapist: Allan Tejeda DPT, OCS, CSCS Visit Plan Frequency: 2x /Week Duration: [...] AD, grab bars, walk in shower for [facility] mobility. 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 Trasnfers chair and bed I today. R HS [...] Frame: 4-6 Weeks Goal 4:: Walk FGA 23/30 without fear Goal Time Frame: 4-6 Weeks [...] and motor function, To increase tolerance to activity/condition/posi tion and To improve ability of physical actions for home/community/work/lei sure Therapeutic Exercise to Include: Strength training, Flexibilty training, Gait and locomotor training, Passive ROM and Active ROM For the Purpose of:: To decrease pain, To increase ROM, To improve nutrient delivery to tissue, To improve muscle performance and motor function and To increase tolerance to activity/condition/posi tion Manual Therapy Techniques to Include: Mobilization, Passive ROM and Soft tissue mobilization For the Purpose of:: To decrease pain, To increase ROM, To improve (more content not included)... [facility] Progress Noteon 02-18-2025 Progress Note Administrations This Visit onabotulinumtoxin A (BOTOX) injection 300 Units Admin Date 02/18/25 Action Given Dose 300 Units Route IntraMUSCular Site Other Administered By Luisito Donovan MD Ordering Provider: Luisito Donovan MD NDC: 2129-6446-62 (x3) Lot#: [id number] (x3) Dent Remover: Allergan Patient Supplied? No Normal [facility] L/S Spine Min 4 Viewson 01-23 L/S Spine Min [address] [facility] Imaging Services [address] [place], [place] [address] L/S Spine Min 4 Views MR#: [id number] Acct: [id number] Name: SARIKA AVILA Rep #: [id number] : 1970 F 54 From: [place] sanders MD PCP: Dr. Dina Wu MD Status: REG CLI Study: L/S Spine Min 4 Views Date of Exam: 02/09/25 Exam# [id number] Ordering Dr: Dina Wu MD PROCEDURE: L/S [...] arthropathy. Exaggerated lumbar lordosis. Spondylosis. Reading Location: [place] [address] CC: Dr. Dina Wu MD Bowling Ball Assembler: Signed [facility] MR/BMS.BPon 12-09-2024 MR/BMS.BP [address], [address] [place] [address] OFFICE VISIT Date of Service: 12/09/24 MR#: [id number] Acct: [id number] Name: SARIKA AVILA Rep #: [id number] : 1970 Provider: Dr. Eddie Tran se, DO Age/Sex: 54/F Location: [facility] Status: Signed Intake Vital Signs 10/07/24 08:08 [...] 88 mcg PO DAILY@0600 #90 tabs 04/0 03/1612/09/24 Rx dextromethorphan 20 mg-quinidine 1 cap PO [...] DAILY #30 tabs 12/03/24 0 12/09/24 Rx estrogens-methyltestost erone 0.625 mg-1.25 mg tablet bupropion HCl 300 [...] disease B (more content not included)... [facility] Internal Medicine Office Vis jair 12-03-2024 Internal Medicine Office Visit [facility] [address] [place] [address] OFFICE VISIT Date of Service: 12/03/24 MR#: [id number] Acct: [id number] Name: SARIKA AVILA Rep #: [id number] : 1970 Provider: Dr. Dina hadley MD Age/Sex: 54/F Location: [facility] Status: Signed Intake Vital Signs 07/16/24 08:55 [...] 3 M FU Chief Complaint: 3m f/u Steel Sampler Required: No Accompanied by: Self Is patient [...] tablet 88 mcg PO DAILY@0600 #90 tabs 04/03/1612/03/24 Rx dextromethorphan 20 mg-quinidine 1 cap PO [...] gauge x #100 ea 08/20/24 12/03/24 Rx 08/28 (BD Ultra-Fine Micro Pen Needle) albuterol sulfate 90 mcg/actuation 1 - 2 puff inhalation Q6H PRN 12/03/24 Rx aerosol inhaler shortness of breath or wheezing #8.5 grams bupropion HCl 150 mg 24 hr tablet, 150 mg PO QAM 90 days #90 tabs 0 10/07/24 12/03/24 Rx extended release esterified 1 tab PO DAILY #30 tabs 12/03/24 0 12/03/24 Rx estrogens-methyltestost erone 0.625 mg-1.25 mg tablet pregabalin 25 mg capsule (Lyrica) 25 mg PO BID 12/03/24 12/03/24 Hi story Have you fallen in the past year?: Yes (3 times in september ) Nurse's Note: needs refills 1 fall is d/t MS 1 fall over dog and 1 fall d/t balancing in chair [facility] Medical History (Updated 12/03/24 @ 13:34 by [...] Anemia Asthma (more content not included)... [facility] Progress Noteon 11-19-2024 Progress Note Administrations This Visit onabotulinumtoxin A (BOTOX) injection 200 Units Admin Date 11/19/2024 Action Given Dose 275 Units Route IntraMUSCular Site Other Administered By [facility] Ordering Provider: Luisito Donovan MD [facility]:[id number] [id number] Lot#: [id number], [id number] Dent Remover: Allergan Patient Supplied?: No, buy & bill Normal [facility] MR/BMS.BPon 10-07-2024 MR/BMS.[address] [place] [address] OFFICE VISIT Date of Service: 10/07/24 MR#: [id number] Acct: [id number] Name: SARIKA AVILA Rep #: [id number] : 1970 Provider: Dr. Eddie Tran se, DO Age/Sex: 54/F Location: [facility] Status: Signed Intake Vital Signs 07/01/24 07:37 [...] tablet 88 mcg PO DAILY@0600 #90 tabs 0403/1610/07/24 Rx dextromethorphan 20 mg-quinidine 1 cap PO [...] DAILY #30 tabs 09/13/24 0 10/07/24 Rx estrogens-methyltestost erone 0.625 mg-1.25 mg tablet bupropion HCl 150 [...] 06/14/21 Tob (more content not included)... Normal [facility] Comprehensive Metabolic Prof ilon 09-20-2024 Albumin [Mass/Vol] 3.8 g/dL Normal 3.2-5.0 [facility] Comment on above: Performed By: #### L 501.83920, L506.0400, L501.9520, L501.9985, L502.0250, L506.1000, L500.4050 ####[facility] [address] [place], [place], [id number](879) Albumin/Globulin [Mass ratio] 1.1 {ratio} Normal 0.9-2.4 [facility] Comment on above: Performed By: #### L 501.10749, L506.0400, L501.9520, L501.9985, L502.0250, L506.1000, L500.4050 ####[facility] [address] [place], [address] ALK P 83 U/L Normal 45-117 [facility] Comment on above: Performed By: #### L 501.08321, L506.0400, L501.9520, L501.9985, L502.0250, L506.1000, L500.4050 ####[facility] [address] [place], [address] ALT [Catalytic activity/Vol] 21 U/L Normal 13-56 [facility] Comment on above: Performed By: #### L 501.03172, L506.0400, L501.9520, L501.9985, L502.0250, L506.1000, L500.4050 ####[facility] [address] [place], [address] AST [Catalytic activity/Vol] 13 U/L Low 15-37 [facility] Comment on above: Performed By: #### L 501.53905, L506.0400, L501.9520, L501.9985, L502.0250, L506.1000, L500.4050 ####[facility] [address] [place], [address] Bilirubin [Mass/Vol] 0.40 mg/dL Normal 0.20-1.[address] [facility] Comment on above: Result Comment: For patients on eltrombopag therapy, use of Dimension [place] TBIL is not recommended. Performed By: #### L 501.20152, L506.0400, L501.9520, L501.9985, L502.0250, L506.1000, L500.4050 ####[facility] [address] [place], [address] BUN/CRE 13.5 RATIO Normal 10-20 [facility] Comment on above: Performed By: #### L 501.93455, L506.0400, L501.9520, L501.9985, L502.0250, L506.1000, L500.4050 ####[facility] [address] [place], [address] CA,Total 9.6 mg/dL Normal 8.5-10.1 [facility] Comment on above: Performed By: #### L 501.93048, L506.0400, L501.9520, L501.9985, L502.0250, L506.1000, L500.4050 ####[facility] [address] [place], [address] Chloride [Moles/Vol] 102 mmol/L Normal 98-[address] [facility] Comment on above: Performed By: #### L 501.94290, L506.0400, L501.9520, L501.9985, L502.0250, L506.1000, L500.4050 ####[facility] [address] [place], [address] CO2 [Moles/Vol] 27.0 mmol/L Normal 21.0-32.0 [facility] Comment on above: Performed By: #### L 501.23713, L506.0400, L501.9520, L501.9985, L502.0250, L506.1000, L500.4050 ####[facility] [address], [address] Creatinine [Mass/Vol] 1.63 mg/dL High 0.55-1.02 [facility] Comment on above: Result Comment: The validity of the calculated GFR GFRAA in patients over 70 years has not been determined. Clinical correlation is essential. Performed By: #### L 501.27969, L506.0400, L501.9520, L501.9985, L502.0250, L506.1000, L500.4050 ####[facility] [address] [place], [address] EST GFR - AA 42 mL/min Low >60 [facility] Comment on above: Result Comment: Afri can Algerian GFR Calc Performed By: #### L 501.61508, L506.0400, L501.9520, L501.9985, L502.0250, L506.1000, L500.4050 ####[facility] [address] [place], [address] GAP 8 Normal 5-15 [facility] Comment on above: Performed By: #### L 501.04248, L506.0400, L501.9520, L501.9985, L502.0250, L506.1000, L500.4050 ####[facility] [address] [place], [address] GFR/1.73 sq M.predicted among non-blacks MDRD (S/P/Bld) [Vol rate/Area] 35 mL/min/{1.73_m2} Low >60 [facility] Comment on above: Result Comment: Non- GFR Calc Performed By: #### L 501.08579, L506.0400, L501.9520, L501.9985, L502.0250, L506.1000, L500.4050 ####[facility] [address] [place], [address] Globulin (S) [Mass/Vol] 3.6 g/dL Normal 2.2-4.2 [facility] Comment on above: Performed By: #### L 501.53349, L506.0400, L501.9520, L501.9985, L502.0250, L506.1000, L500.4050 ####[facility] [address] [place], [address] Glucose [Mass/Vol] 84 mg/dL Normal 74-106 [facility] Comment on above: Performed By: #### L 501.60749, L506.0400, L501.9520, L501.9985, L502.0250, L506.1000, L500.4050 ####[facility] [address] [place], [address] Potassium [Moles/Vol] 3.9 mmol/L Normal 3.5-5.1 [facility] Comment on above: Performed By: #### L 501.05272, L506.0400, L501.9520, L501.9985, L502.0250, L506.1000, L500.4050 ####[facility] [address] [place], [address] Sodium [Moles/Vol] 136 mmol/L Normal 136-145 [facility] Comment on above: Performed By: #### L 501.17566, L506.0400, L501.9520, L501.9985, L502.0250, L506.1000, L500.4050 ####[facility] [address] [place], [address] T PROT 7.4 g/dL Normal 6.4-8.2 [facility] Comment on above: Performed By: #### L 501.04159, L506.0400, L501.9520, L501.9985, L502.0250, L506.1000, L500.4050 ####[facility] [address] [place], [address] Urea nitrogen [Mass/Vol] 22 mg/dL High 7-18 [facility] Comment on above: Performed By: #### L 501.99391, L506.0400, L501.9520, L501.9985, L502.0250, L506.1000, L500.4050 ####[facility] [address] [place], [address] Free T3on 09-20-2024 Free T3 [Mass/Vol] 2.8 pg/mL Normal 2.18-3.98 [facility] Comment on above: Performed By: #### L 501.61154, L506.0400, L501.9520, L501.9985, L502.0250, L506.1000, L500.4050 ####[facility] [address] [place], [address] Hemoglobin A1con 09-20-2024 HbA1c (Bld) [Mass fraction] 5.4 % Normal 3.8-5.6 [facility] Comment on above: Result Comment: Norm al < 5.7 % Prediabetic 5.7 - 6.4 % Diabetic >or= 6.5 % Please note range changes. Performed By: #### L 501.73237, L506.0400, L501.9520, L501.9985, L502.0250, L506.1000, L500.4050 ####[facility] [address] [place], [address] Microalb:Creat Ratio,Random URon 09-20-2024 Creatinine [Mass/Vol] 125.00 mg/dL Normal NO RAN GE EST. [facility] Comment on above: Performed By: #### L 501.53866, L506.0400, L501.9520, L501.9985, L502.0250, L506.1000, L500.4050 ####[facility] [address] [place], [place], [address] MALB:CRE 4.6 mg/g CRE Normal <30 mg/g CRE [facility] Comment on above: Performed By: #### L 501.79263, L506.0400, L501.9520, L501.9985, L502.0250, L506.1000, L500.4050 ####[facility] [address] [place], [address] MICROALBUMIN,UR 5.8 mg/L Normal NO RANGE EST. [facility] Comment on above: Performed By: #### L 501.61788, L506.0400, L501.9520, L501.9985, L502.0250, L506.1000, L500.4050 ####[facility] [address] [place], [address] T4 Free Directon 09-20-2024 T4 FREE DIRECT 1.30 ng/dL Normal 0.76-1.46 [facility] Comment on above: Performed By: #### L 501.19367, L506.0400, L501.9520, L501.9985, L502.0250, L506.1000, L500.4050 ####[facility] [address] [place], [address] Thyroid Stim Hormone (TSH)on 09-20-2024 TSH 0.423 uIU/mL Normal 0.358-3.740 [facility] Comment on above: Performed By: #### L 501.20293, L506.0400, L501.9520, L501.9985, L502.0250, L506.1000, L500.4050 ####[facility] [address] [place], [address] Vitamin D,25 Hydroxyon 09-20 Vitamin D 25-OH 57.6 ng/mL Normal [facility] Comment on above: Result Comment: Alysa min D 25(OH) Status Range Deficiency <20 ng/mL (50nmol/L) Insufficiency 20 - 30 ng/mL (50 - 75 nmol/L) Sufficiency 30 - 100 ng/mL (75 - 250 nmol/L) Toxicity >100 ng/mL (>250 nmol/L) Performed By: #### L 501.27561, L506.0400, L501.9520, L501.9985, L502.0250, L506.1000, L500.4050 ####[facility] [address] [place], [place], [id number] [facility] DARRIANN Telephone (GYURWP) MARGARITASARIKA ([id number]) 1970 F Date Time Provider Department 09/16/24 GEGE JAMISON During your visit today, we recorded the following information about you: Amna Burrows, YEISON 09/16/2024 3:56 PM Signed 200 units Botox approved through 08/24/25 - NPCR. Updated sticky note. Pt scheduled for Botox on 10/06 at with Luz. Amna Burrows RN September 16, 2024 3:56 [...] Fully Assessed Reason for Visit: Care Coordination [3783] Cmt: Botox Prescriptions as of 09/16/2024 - [...] INTRANASAL DAILY November 18, 2018 1:22pm - triamterene-hydroCHLORO thiazide (MAXZIDE-25) 37.5-25 mg per tablet Take 1 [...] AND/Or Wheezing September 19, 2017 Active 09-19-2017 [facility] (59432) - hydrocortisone 2.5 % ointment - miconazole (MONISTAT-DERM,ROSEMARY) 2 % cream As directed. - nystatin (MYCOSTATIN) powder Apply to affected area twice daily. - folic acid 800 mcg tablet every day - VITAMIN D-3 2,000 unit cap 5,000 Units. - esterified estrogens-methylTESTOST ERone (ESTRATEST HS) 0.625-1.25 mg per tablet - NOVOFINE 32 32 gauge x 1/4 ndle Problem List As Of Date 09/16/2024 [...] Status:Closed by AMNA BURROWS on 09/16/24 Normal [facility] Dexa Bone Density Studyon Dexa Bone Density Study [facility] Imaging Services [address] [place], [place] [address] Dexa Bone Density Study MR#: [id number] Acct: [id number] Name: SARIKA AVILA Rep #: [id number] : 1970 F 54 From: Artur Gottlieb MD PCP: Dr. Dina Wu MD Status: [facility] CL Study: Dexa Bone Density Study Date of Exam: 08/26/24 Exam# [id number] Ordering [place]: [place] [id number] STUDY: DUAL ENERGY X-RAY ABSORPTIOMETRY / DXA [...] EST , CC: Dr. Dina Wu MD Bowling Ball Assembler: Signed [facility] SCRN MAMM (CAD)W/DEJON BILATo n 08-26-2024 SCRN MAMM (CAD)W/DEJON BILAT [facility] Imaging Services [address] [place] [address] SCRN MAMM (CAD)W/DEJON BRETAT MR#: [id number] Acct: [id number] Name: SARIKA AVILA Rep #: [id number] : 1970 F 54 From: Artur Gottlieb MD PCP: Dr. Dina Wu MD Status: REG CLI Study: SCRN MAMM (CAD)W/DEJON BILAT Date of Exam: 10/19 Exam# [id number] Ordering [place]: [place] [id number] MAMMOGRAPHY - BILATERAL SCREENING 3-D TOMOSYNTHESIS REASON [...] Signed: Kimberly Gottlieb MD at 11:17 EST Reading Location ID and State: [address] [place] [address] , Service support , CC: Dr. Dina Wu MD Bowling Ball Assembler: Signed [facility] Progress Noteon 08-20-2024 Progress Note Administrations This Visit onabotulinumtoxin A (BOTOX) injection 200 Units Admin Date 08/20/24 Action Given Dose 200 Units Route IntraMUSCular Site Other Administered By Luisito Donovan MD Ordering Provider: Luisito Donovan MD ND: [id number] Lot#: [id number] Dent Remover: Allergan Patient Supplied?: No Normal [facility] Bacteria Ur Culton 4 Bacteria identified Cx Nom (U) ORGANISM ID: 1 <10,000 CFU/ml Normal urogenital luci Normal [facility] Comment on above: Performed By: #### 6 30-4 #### [facility] CLIA [id number] [address] [place] [address] [place] CNPNon 08-03-2024 CNPN Telephone (GYURWP) SARIKA AVILA ([id number]) 1970 F Date Time Provider Department 08/03/24 GEGE JAMISON GYURWP During your visit today, [...] updated: Yes Patient provided lab location in [place]. YEISON Pfeiffer Mary M, MD 08/04/2024 8:54 AM Signed Due to difficulty with MyChart notes sending too quickly, I called patient. She just dropped off a sample at [facility] [place] lab. We will see if she has [...] Primary Visit Diagnosis:UTI symptoms [R39.9] Order(s):URINE CULTURE [SQURCUL] Order #: [id number] FUTURE Prescriptions as of 08/05/2024 - vibegron [...] INTRANASAL DAILY November 18, 2018 1:22pm - triamterene-hydroCHLORO thiazide (MAXZIDE-25) 37.5-25 mg per tablet Take 1 [...] AND/Or Wheezing September 19, 2017 Active 09-19-2017 [facility] ([id number]) - hydrocortisone 2.5 % ointment - miconazole (MONISTAT-DERM,ROSEMARY) 2 % cream As directed. - nystatin (MYCOSTATIN) powder Apply to affected area twice daily. - folic acid 800 mcg tablet every day - VITAMIN D-3 2,000 unit cap 5,000 Units. - esterified estrogens-methylTESTOST ERone (ESTRATEST HS) 0.625-1.25 mg per tablet - [...] Status:Closed by GEGE JAMISON on 08/04/24 Normal [facility] Inital Evaluation (1) - PTon 07-20-2024 Inital Evaluation (1) - PT [facility] [address] [place] [address]. [address] [place] [address] / REHABILITATION SERVICES INITIAL EVALUATION MR#: [id number] Acct: [id number] Name: SARIKA AVILA Rep #: [id number] : 1970 53 From: Rik Gautam PT, ATC Referring Dr.: ANDREA Teague Status: REG R CR Insurance: [facility] SELF PAY INSURANCE Patient's Visit Information Visit [...] that revealed no fractures. 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 [...] to be FAXED BACK to us at [phone] for Medicare purposes. For Medicare only, by signing this I certify the plan of care. Please let me know if there are questions or concerns regarding this plan of care. Physician Signature: Date: 07/20/24 1330 CC: Dr. Dina Wu MD; ANDREA Teague [facility] Signed Normal [facility] Internal Medicine Office Vis iton 07-16-2024 Internal Medicine Office Visit [facility] [address] [place] [address] [place] [address] OFFICE VISIT Date of Service: 07/16/24 MR#: [id number] Acct: [id number] Name: SARIKA AVILA Rep #: [id number] : 1970 Provider: Dr. Dina hadley MD Age/Sex: 53/F Location: [facility] Status: Signed Intake Vital Signs 04/14/24 08:54 [...] 3 M FU Chief Complaint: 3m f/u Steel Sampler Required: No Accompanied by: Self Is patient [...] PO DAILY #30 tabs 07/16/24 07/16/24 Rx estrogens-methyltestost erone 0.625 mg-1.25 mg tablet PFSH Medical History (Updated 07/16/24 @ 10:17 [...] Cigarette Use: (more content not included)... [facility] Foot min 3 Viewson 4 Foot min [address] [facility] Imaging Services [address] [place] [address] Foot min 3 Views MR#: [id number] Acct: [id number] Name: SARIKA AVILA Rep #: [id number] : 1970 F 53 From: Raheem mayers MD PCP: Dr. Dina Wu MD Status: REG CLI Study: Foot min 3 Views Date of Exam: 07/07/24 Exam# [id number] Ordering Dr: Eddie Kessler [id number] STUDY: X-RAY - LEFT FOOT CLINICAL: Female, [...] Signed: Raheem Hood MD at 9:41 EST , CC: Dr. Dina Wu MD; ANDREA Teague Bowling Ball Assembler: Signed Normal [facility] Urgent Care Visit Reporton 1 09-06-2023 Urgent Care Visit Report [facility] [address], [address] [place], [place] [address] OFFICE VISIT Date of Service: 07/07/24 MR#: [id number] Acct: [id number] Name: SARIKA AVILA Rep #: [id number] : 1970 Provider: ANDREA Teague Age/Sex: 53/F Location: [facility] Status: Signed Intake Vital Signs 07/01/24 07:37 [...] Chief Complaint: LT FOOT INJURY / PAIN Steel Sampler Required: No Accompanied by: Self Is patient [...] happened Friday pt stepped off step wrong PFSH Medical History (Updated 07/07/24 @ 09:43 by [...] of physical a (more content not included)... [facility] 05-13-2024 [facility] Telephone (AMY) SARIKA AVILA ([id number]) 1970 F Date Time Provider Department 05/13/24 [...] schedule her for an appointment with the AUTOMOTIVE BUYER to discuss further options. Thanks, MD Ana [...] INTRANASAL DAILY November 18, 2018 1:22pm - triamterene-hydroCHLORO thiazide (MAXZIDE-25) 37.5-25 mg per tablet Take 1 [...] AND/Or Wheezing September 19, 2017 Active 09-19-2017 [facility] (93173) - hydrocortisone 2.5 % ointment - miconazole (MONISTAT-DERM,ROSEMARY) 2 % cream As directed. - nystatin (MYCOSTATIN) powder Apply to affected area twice daily. - folic acid 800 mcg tablet every day - VITAMIN D-3 2,000 unit cap 5,000 Units. - esterified estrogens-methylTESTOST ERone (ESTRATEST HS) 0.625-1.25 mg per tablet - [...] [K58.9] 12/02/2017 History of colonic polyps [Z86.010] more content not included)... Normal [facility] MR Brain WO and W contrast I Von 03-14-2024 * * *Final Report* * * DATE OF EXAM: Mar 14 2024 10:17AM [facility] 0295 - MRI BRAIN WO/W IVCON / [...] Improvement: None. New Enhancing Lesions: None T2 [place] of Disease: Mild. Parenchymal Volume Loss: None. Other Significant Findings: None. MR CERVICAL: Counting reference: Craniocervical junction. Alignment: Alignment is anatomic. Craniocervical Junction: Craniocervical junction is normal. Cord Findings: Patchy foci of hyperintensity are noted in the cervical and visualized upper thoracic cord on the T2, IR and axial gradient echo images compatible with the history of multiple sclerosis. Cord T2 Plaque [place]: Mild New T2 Lesions: None. Please note [...] history of multiple sclerosis. Cord T2 Plaque [place]: Mild New T2 Lesions: Greater than three [...] foramina are patent. DIVISION OF RADIOLOGY Provider, [facility] - 03/14/2024 * * *Final Report* * * DATE OF EXAM: Mar 14 2024 10:17AM [facility] 0295 - MRI BRAIN WO/W IVCON / [...] Improvement: None. New Enhancing Lesions: None T2 [place] of Disease: Mild. Parenchymal Volume Loss: None. Other Significant Findings: None. MR CERVICAL: Counting reference: Craniocervical junction. Alignment: Alignment is anatomic. Craniocervical Junction: Craniocervical junction is normal. Cord Findings: Patchy foci of hyperintensity are noted in the cervical and visualized upper thoracic cord on the T2, IR and axial gradient echo images compatible with the history of multiple sclerosis. Cord T2 Plaque [place]: Mild New T2 Lesions: None. Please note [...] history of multiple sclerosis. Cord T2 Plaque [place]: Mild New T2 Lesions: Greater than three [...] No significant cervical canal or foraminal stenosis. Bowling Ball Assembler: PSCB Transcribe Date/Time: Mar 14 2024 10:29A Dictated by : SHIN ALVAREZ MD This examination was interpreted and the report reviewed and electronically signed by: SHIN ALVAREZ MD on Mar 14 2024 11:06AM EST [facility] Radiology Study observation (narrative) [facility] MR Cervical spine WO and W c ontrast Madi 03-14-2024 * * *Final Report* * * DATE OF EXAM: Mar 14 2024 10:17AM [facility] 0298 - MRI CERVICAL SPINE WO/W IVCON [...] Improvement: None. New Enhancing Lesions: None T2 [place] of Disease: Mild. Parenchymal Volume Loss: None. Other Significant Findings: None. MR CERVICAL: Counting reference: Craniocervical junction. Alignment: Alignment is anatomic. Craniocervical Junction: Craniocervical junction is normal. Cord Findings: Patchy foci of hyperintensity are noted in the cervical and visualized upper thoracic cord on the T2, IR and axial gradient echo images compatible with the history of multiple sclerosis. Cord T2 Plaque [place]: Mild New T2 Lesions: None. Please note [...] history of multiple sclerosis. Cord T2 Plaque [place]: Mild New T2 Lesions: Greater than three [...] foramina are patent. DIVISION OF RADIOLOGY Provider, [facility] - 03/14/2024 * * *Final Report* * [...] Improvement: None. New Enhancing Lesions: None T2 [place] of Disease: Mild. Parenchymal Volume Loss: None. Other Significant Findings: None. MR CERVICAL: Counting reference: Craniocervical junction. Alignment: Alignment is anatomic. Craniocervical Junction: Craniocervical junction is normal. Cord Findings: Patchy foci of hyperintensity are noted in the cervical and visualized upper thoracic cord on the T2, IR and axial gradient echo images compatible with the history of multiple sclerosis. Cord T2 Plaque [place]: Mild New T2 Lesions: None. Please note [...] history of multiple sclerosis. Cord T2 Plaque [place]: Mild New T2 Lesions: Greater than three [...] No significant cervical canal or foraminal stenosis. Bowling Ball Assembler: PSCB Transcribe Date/Time: Mar 14 2024 10:29A Dictated by : SHIN ALVAREZ MD This examination was interpreted and the report reviewed and electronically signed by: SHIN ALVAREZ MD on Mar 14 2024 11:06AM [facility] MR Thoracic spine WO and W [...] Improvement: None. New Enhancing Lesions: None T2 [place] of Disease: Mild. Parenchymal Volume Loss: None. Other Significant Findings: None. MR CERVICAL: Counting reference: Craniocervical junction. Alignment: Alignment is anatomic. Craniocervical Junction: Craniocervical junction is normal. Cord Findings: Patchy foci of hyperintensity are noted in the cervical and visualized upper thoracic cord on the T2, IR and axial gradient echo images compatible with the history of multiple sclerosis. Cord T2 Plaque [place]: Mild New T2 Lesions: None. Please note [...] history of multiple sclerosis. Cord T2 Plaque [place]: Mild New T2 Lesions: Greater than three [...] foramina are patent. DIVISION OF RADIOLOGY Provider, [facility] - 03/14/2024 * * *Final Report* * * DATE OF EXAM: Mar 14 2024 10:17AM [facility] 0326 - MRI THORACIC SPINE WO/W IVCON [...] Improvement: None. New Enhancing Lesions: None T2 [place] of Disease: Mild. Parenchymal Volume Loss: None. Other Significant Findings: None. MR CERVICAL: Counting reference: Craniocervical junction. Alignment: Alignment is anatomic. Craniocervical Junction: Craniocervical junction is normal. Cord Findings: Patchy foci of hyperintensity are noted in the cervical and visualized upper thoracic cord on the T2, IR and axial gradient echo images compatible with the history of multiple sclerosis. Cord T2 Plaque [place]: Mild New T2 Lesions: None. Please note [...] history of multiple sclerosis. Cord T2 Plaque [place]: Mild New T2 Lesions: Greater than three [...] No significant cervical canal or foraminal stenosis. Bowling Ball Assembler: [facility] Transcribe Date/Time: Mar 14 2024 10:29A Dictated by : SHIN ALVAREZ MD This examination was interpreted and the report reviewed and electronically signed by: SHIN ALVAREZ MD on Mar 14 2024 11:06AM EST [facility] No Panel Informationon 03-14 IMPRESSION: Multiple [...] No significant cervical canal or foraminal stenosis. [employer]: [facility] Transcribe Date/Time: Mar 14 2024 10:29A Dictated by : SHIN ALVAREZ MD This examination was interpreted and the report reviewed and electronically signed by: SHIN ALVAREZ MD on Mar 14 2024 11:06AM EST DIVISION OF RADIOLOGY Radiology Study observation (narrative) [facility] No Panel InformationOrdered By: [facility] Provider on 03-14-2024 [facility] CNOVon 10-08-2023 CNOV Office Visit (NEAGCL M) SARIKA AVILA ([id number]) 1970 F Date Time Provider Department 10/08/23 10:00 AM AURA DENNISONAGCLM During your visit today, we recorded the following information about you: Pulse Respiration Blood pressure Weight 59/minute 16/minute 146/74 102.8 kg Height 1.6 m Aura Dennison I, MD 10/08/2023 11:21 AM Signed NEUROSURGERY CONSULT NOTE Aura Dennison MD Chair, Clinical Neurosciences Director, Spinal Neurosurgery [facility] Date of visit: October 08, 2023 Patient Name: Ms.Kimberly Harper Avila Date of : 1970 Current Age: [age] year old Sex: female MRN/E# [id number] Last Office Visit: Visit date not found Chief Complaint: Patient presents with: New Patient Past Medical/Surgical History: Sarika Avila is a 53 year old female who is referred by Dr. Tanya Herron with the [facility] for neurosurgical evaluation of the cervical spine. The patient has a history of MS, DM, hypothyroidism, osteopenia and HTN. Surgical Risk Factors: Smoking status: Former, quit 3 years ago Alcohol use: Denies Anticoagulants/antiplat elets: No Diabetic: Yes, no recent hgbA1c BMI: [...] Dose Jian Celebrex Baclofen Gabapentin PT/OT: @ [facility] in [place] Botox injections for spastic diplegia PREVIOUS SURGERY: No spine surgery PAIN EVALUATION 10/06/20232104 Pain Level: 6 Pain Location: Neck Description: Aching;Burning;Dull;Num bness;Radiating;Sharp;S pasm Duration Amount of Time: 5.5 Duration Units: Months Intervention/Comfort measure: Medication;Reposition;C old;Exercise;Heat;Massa ge;Positioning Comments: Radiating from neck down left shoulder [...] SPX Laparoscopy, Multiple PAST SURGICAL HISTORY OF Otho tooth extraction x 4 TONSILLECTOMY PRIMARY/SECONDARY Tonsillectomy [...] 100 m (more content not included)... Normal [facility] XR CERVICAL 4V AP/LAT/FLX/EX Ton 10-08-2023 [...] DISC DISEASE IN THE LOWER CERVICAL SPINE. [employer]: [facility] Transcribe Date/Time: Oct 09 2023 4:46P Dictated by : KIMBERLY ORTIZ MD This examination was interpreted and the report reviewed and electronically signed by: KIMBRELY ORTIZ MD on Oct 09 2023 4:48PM EST [id number] Normal [facility] GLUCOSE BY METERon Glucose [Mass/Vol] 134 mg/dL High 65-110 [facility] Comment on above: Performed By: #### G LUM #### [facility] [address] [place] [address] [place] [id number] Basic metabolic 2000 panelon 02-13-2023 Anion gap [Moles/Vol] 1.0 mmol/L Normal <=15.0 [facility] Comment on above: Performed By: #### 2 4321-2 #### [facility] [address] [place] [address] [place] [id number] Calcium [Mass/Vol] 9.1 mg/dL Normal 8.5-10.1 [facility] Comment on above: Performed By: #### 2 4321-2 #### [facility] [address] [place] [address] [place] [id number] Chloride [Moles/Vol] 109 mmol/L High 98-107 [facility] Comment on above: Performed By: #### 2 4321-2 #### [facility] [address] [place] [address] [place] [id number] CO2 [Moles/Vol] 29 mmol/L Normal 21-32 [facility] Comment on above: Performed By: #### 2 4321-2 #### [facility] [address] [place] [address] [place] [id number] Creatinine [Mass/Vol] 1.48 mg/dL High 0.51-0.95 [facility] Comment on above: Performed By: #### 2 4321-2 #### [facility] [address] [place] [address] [place] [id number] GFR/1.73 sq M.predicted MDRD (S/P/Bld) [Vol rate/Area] 37 mL/min/{1.73_m2} Low >=59 [facility] Comment on above: Performed By: #### 2 4321-2 #### [facility] [address] [place] [address] [place] [id number] Glucose [Mass/Vol] 85 mg/dL Normal 74-106 [facility] Comment on above: Performed By: #### 2 4321-2 #### [facility] [address] [place] [address] [place] [id number] HGFR GLOMERULAR FILTRATIO N RATE INTERPRETATION~The eGFR [...] months, with or without kidney damage.~ Normal [facility] Comment on above: Performed By: #### 2 4321-2 #### [facility] [address] [place] [address] [place] [facility] CLIA [id number] Potassium [Moles/Vol] 4.3 mmol/L Normal 3.5-5.1 [facility] Comment on above: Performed By: #### 2 4321-2 #### [facility] [address] [place] [address] [place] [facility] KIKIIA [id number] Sodium [Moles/Vol] 139 mmol/L Normal 136-145 [facility] Comment on above: Performed By: #### 2 4321-2 #### [facility] [address] [place] [address] [place] CLIA [id number] Urea nitrogen [Mass/Vol] 18 mg/dL High 7-17 [facility] Comment on above: Performed By: #### 2 4321-2 #### [facility] [address] [facility] [place] [address] [place] [facility] KIKIIA [id number] MRI SHOULDER WO CONTRAST RTo n 01-12-2023 [...] fluid is suspicious for mild bursitis. Normal [facility] Absolute lymphocyte counton 07-11-2022 Lymphocytes Auto (Unsp spec) [#/Vol] 1.55 10*3/uL 0.83-4.51 [facility] Work Phone: Basophil percentageon 2021 Basophils/100 WBC (Bld) 0.7 % 0-1 [facility] Work Phone: Eosinophils/100 WBC (Bld) 1.0 % 0-5 [facility] Work Phone: Neutrophils (Bld) [#/Vol] 4.1 10*3/uL 2.0-7.7 [facility] Work Phone: Neutrophils/100 WBC (Bld) 66.7 % 47-70 [facility] Work Phone: WBC (Bld) [#/Vol] 6.1 10*3/uL 4.4-11.0 [facility] Work Phone: Blood erythrocytes count (nu mber/volume)on 07-11-2022 RBC (Bld) [#/Vol] 3.96 10*6/uL 4.2-5.4 [facility] Work Phone: Blood hemoglobin measurement (mass/volume)on 07-11-2022 Hemoglobin (Bld) [Mass/Vol] 13.1 g/dL 12.0-15.0 [facility] Work Phone: Blood lymphocytes/100 leukoc yteson 07-11-2022 Lymphocytes/100 WBC (Bld) 25.4 % 19-41 [facility] Work Phone: Blood monocytes/100 leukocyt eson 07-11-2022 Monocytes/100 WBC (Bld) 5.9 % 0-10 [facility] Work Phone: Blood platelet mean volumeon 07-11-2022 Platelet mean volume (Bld) [Entitic vol] 8.8 fL 6.2-12.0 [facility] Work Phone: Determination of erythrocyte mean corpuscular volume (MCV)on 07-11-2022 MCV (RBC) [Entitic vol] 100.8 fL 81-99 [facility] Work Phone: Hematocrit Auto (Bld) [Volum e fraction]on 07-11-2022 Hematocrit (Bld) [Volume fraction] 39.9 % 37-47 [facility] Work Phone: Laboratory - Hematology and Cell countson 07-11-2022 Erythrocyte distribution width (RBC) [Entitic vol] 49.1 fL 35.1-43.9 [facility] Work Phone: Erythrocyte distribution width (RBC) [Ratio] 13.2 % 11.6-14.6 [facility] Work Phone: Immature granulocytes/100 WBC (Bld) 0.300 % 0.0-0.9 [facility] Work Phone: Comment on above: IG% - Immature Granu locytes (promyelocytes, myelocytes and metamyelocytes) > 1% indicates that a LEFT SHIFT is Present. MCH (RBC) [Entitic mass] 33.1 pg 27.0-32.0 [facility] Work Phone: Nucleated RBC/100 WBC (Bld) [Ratio] 0 % 0-5 [facility] Work Phone: MCHC Auto (RBC) [Mass/Vol]on 07-11-2022 MCHC (RBC) [Mass/Vol] 32.8 g/dL 32-[address] Work Phone: Platelets bldon 07-11-2022 Platelets (Bld) [#/Vol] 237 10*3/uL 150-450 [facility] Work Phone: Absolute lymphocyte counton 06-11-2022 Lymphocytes Auto (Unsp spec) [#/Vol] 2.02 10*3/uL 0.83-4.51 [facility] Work Phone: Basophil percentageon 2021 Basophils/100 WBC (Bld) 0.8 % 0-1 [facility] Work Phone: Eosinophils/100 WBC (Bld) 1.1 % 0-5 [facility] Work Phone: Neutrophils (Bld) [#/Vol] 4.8 10*3/uL 2.0-7.7 [facility] Work Phone: Neutrophils/100 WBC (Bld) 64.6 % 47-70 [facility] Work Phone: WBC (Bld) [#/Vol] 7.4 10*3/uL 4.4-11.0 [facility] Work Phone: Blood erythrocytes count (nu mber/volume)on 06-11-2022 RBC (Bld) [#/Vol] 3.88 10*6/uL 4.2-5.4 [facility] Work Phone: Blood hemoglobin measurement (mass/volume)on 06-11-2022 Hemoglobin (Bld) [Mass/Vol] 12.7 g/dL 12.0-15.0 [facility] Work Phone: Blood lymphocytes/100 leukoc yteson 06-11-2022 Lymphocytes/100 WBC (Bld) 27.4 % 19-41 [facility] Work Phone: Blood monocytes/100 leukocyt eson 06-11-2022 Monocytes/100 WBC (Bld) 5.6 % 0-10 [facility] Work Phone: Blood platelet mean volumeon 06-11-2022 Platelet mean volume (Bld) [Entitic vol] 8.9 fL 6.2-12.0 [facility] Work Phone: Determination of erythrocyte mean corpuscular volume (MCV)on 06-11-2022 MCV (RBC) [Entitic vol] 99.5 fL 81-99 [facility] Work Phone: Hematocrit Auto (Bld) [Volum e fraction]on 06-11-2022 Hematocrit (Bld) [Volume fraction] 38.6 % 37-47 [facility] Work Phone: Laboratory - Hematology and Cell countson 06-11-2022 Erythrocyte distribution width (RBC) [Entitic vol] 48.9 fL 35.1-43.9 [facility] Work Phone: Erythrocyte distribution width (RBC) [Ratio] 13.3 % 11.6-14.6 [facility] Work Phone: Immature granulocytes/100 WBC (Bld) 0.500 % 0.0-0.9 [facility] Work Phone: Comment on above: IG% - Immature Granu locytes (promyelocytes, myelocytes and metamyelocytes) > 1% indicates that a LEFT SHIFT is Present. MCH (RBC) [Entitic mass] 32.7 pg 27.0-32.0 [facility] Work Phone: Nucleated RBC/100 WBC (Bld) [Ratio] 0 % 0-5 [facility] Work Phone: MCHC Auto (RBC) [Mass/Vol]on 06-11-2022 MCHC (RBC) [Mass/Vol] 32.9 g/dL 32-36 [facility] Work Phone: Platelets bldon 06-11-2022 Platelets (Bld) [#/Vol] 253 10*3/uL 150-450 [facility] Work Phone: Absolute lymphocyte counton 05-01-2022 Lymphocytes Auto (Unsp spec) [#/Vol] 1.78 10*3/uL 0.83-4.51 [facility] Work Phone: Basophil percentageon 2021 Basophils/100 WBC (Bld) 0.8 % 0-1 [facility] Work Phone: Bilirubin [Mass/Vol] 0.50 mg/dL 0.20-1.[address] [facility] Work Phone: Comment on above: For patients on eltr ombopag therapy, use of Dimension [place] TBIL is not recommended. Chloride [Moles/Vol] 104 mmol/L 98-[address] [facility] Work Phone: Eosinophils/100 WBC (Bld) 1.0 % 0-5 [facility] Work Phone: Glucose [Mass/Vol] 90 mg/dL 74-106 [facility] Work Phone: Neutrophils (Bld) [#/Vol] 4.0 10*3/uL 2.0-7.7 [facility] Work Phone: Neutrophils/100 WBC (Bld) 63.9 % 47-70 [facility] Work Phone: Potassium [Moles/Vol] 4.5 mmol/L 3.5-5.1 [place] [facility] Work Phone: Protein [Mass/Vol] 7.2 g/dL 6.4-8.2 [place] [facility] Work Phone: Sodium [Moles/Vol] 137 mmol/L 136-145 [place] [facility] Work Phone: WBC (Bld) [#/Vol] 6.3 10*3/uL 4.4-11.0 [place] [facility] Work Phone: Blood erythrocytes count (nu mber/volume)on 05-01-2022 RBC (Bld) [#/Vol] 4.05 10*6/uL 4.2-5.4 [place] [facility] Work Phone: Blood hemoglobin measurement (mass/volume)on 05-01-2022 Hemoglobin (Bld) [Mass/Vol] 13.2 g/dL 12.0-15.0 [facility] Work Phone: Blood lymphocytes/100 leukoc yteson 05-01-2022 Lymphocytes/100 WBC (Bld) 28.3 % 19-41 [facility] Work Phone: Blood monocytes/100 leukocyt eson 05-01-2022 Monocytes/100 WBC (Bld) 5.7 % 0-10 [facility] Work Phone: Blood platelet mean volumeon 05-01-2022 Platelet mean volume (Bld) [Entitic vol] 9.0 fL 6.2-12.0 [facility] Work Phone: Determination of erythrocyte mean corpuscular volume (MCV)on 05-01-2022 MCV (RBC) [Entitic vol] 97.3 fL 81-99 [facility] Work Phone: Hematocrit Auto (Bld) [Volum e fraction]on 05-01-2022 Hematocrit (Bld) [Volume fraction] 39.4 % 37-47 [facility] Work Phone: Laboratory - Chemistry and C hemistry - challengeon 05-01-2022 ALP [Catalytic activity/Vol] 69 U/L 45-117 [facility] Work Phone: [phone] ALT [Catalytic activity/Vol] 21 U/L 13-56 [facility] Work Phone: [phone] CO2 [Moles/Vol] 23.0 mmol/L 21.0-32.0 [facility] Work Phone: [phone] Free T4 [Mass/Vol] 0.91 ng/dL 0.76-1.46 [facility] Work Phone: Globulin (S) [Mass/Vol] 3.5 g/dL 2.2-4.2 [facility] Work Phone: Urea nitrogen/Creatinine [Mass ratio] 15.9 mg/mg 10-20 [facility] Work Phone: Laboratory - Hematology and Cell countson 05-01-2022 Erythrocyte distribution width (RBC) [Entitic vol] 47.1 fL 35.1-43.9 [facility] Work Phone: Erythrocyte distribution width (RBC) [Ratio] 13.2 % 11.6-14.6 [facility] Work Phone: Immature granulocytes/100 WBC (Bld) 0.300 % 0.0-0.9 [facility] Work Phone: Comment on above: IG% - Immature Granu locytes (promyelocytes, myelocytes and metamyelocytes) > 1% indicates that a LEFT SHIFT is Present. MCH (RBC) [Entitic mass] 32.6 pg 27.0-32.0 [facility] Work Phone: Nucleated RBC/100 WBC (Bld) [Ratio] 0 % 0-5 [facility] Work Phone: MCHC Auto (RBC) [Mass/Vol]on 05-01-2022 MCHC (RBC) [Mass/Vol] 33.5 g/dL 32-36 [facility] Work Phone: No Panel Informationon 05-01 Estimated GFR (MDRD) Amer 65 mL/min >60 [facility] Work Phone: Comment on above: GFR Calc Estimated GFR (MDRD) Non-Af Amer 54 mL/min >60 [facility] Work Phone: Comment on above: Non- GFR Calc Free Triiodothyronine (T3) pg/dL 3.4 pg/mL 2.18-3.98 [facility] Work Phone: Thyroid Stimulating Hormone (TSH) 1.11 uIU/mL 0.358-3.74 [facility] Work Phone: Platelets bldon 05-01-2022 Platelets (Bld) [#/Vol] 243 10*3/uL 150-450 [facility] Work Phone: Serum or plasma albumin derrick urement (mass/volume)on 05-01-2022 Albumin [Mass/Vol] 3.7 g/dL 3.2-5.0 [facility] Work Phone: Serum or plasma albumin/glob ulin mass ratioon 05-01-2022 Albumin/Globulin [Mass ratio] 1.1 {ratio} 0.9-2.4 [facility] Work Phone: Serum or plasma calcium derrick urement (mass/volume)on 05-01-2022 Calcium [Mass/Vol] 9.4 mg/dL 8.5-10.1 [facility] Work Phone: Serum or plasma creatinine m easurement (mass/volume)on 05-01-2022 Creatinine [Mass/Vol] 1.13 mg/dL 0.55-1.02 [facility] Work Phone: Comment on above: The validity of the calculated GFR & GFRAA in patients over 70 years has not been determined. Clinical correlation is essential. Serum or plasma urea nitroge n measurement (mass/volume)on 09-07-2022 Urea nitrogen [Mass/Vol] 18 mg/dL 7-18 [facility] Work Phone: Thin prep Papanicolaou smear with manual screeningon 05-01-2022 Thin prep Papanicolaou smear with manual screening 20 U/L 15-37 [facility] Work Phone: Thin prep Papanicolaou smear with manual screening 10 5-15 [facility] Work Phone: Absolute lymphocyte counton 03-30-2022 Lymphocytes Auto (Unsp spec) [#/Vol] 1.83 10*3/uL 0.83-4.51 [facility] Work Phone: Basophil percentageon 2021 Basophils/100 WBC (Bld) 0.5 % 0-1 [facility] Work Phone: Eosinophils/100 WBC (Bld) 0.8 % 0-5 [facility] Work Phone: Neutrophils (Bld) [#/Vol] 4.0 10*3/uL 2.0-7.7 [facility] Work Phone: Neutrophils/100 WBC (Bld) 62.8 % 47-70 [facility] Work Phone: WBC (Bld) [#/Vol] 6.3 10*3/uL 4.4-11.0 [facility] Work Phone: Blood erythrocytes count (nu mber/volume)on 03-30-2022 RBC (Bld) [#/Vol] 3.92 10*6/uL 4.2-5.4 [facility] Work Phone: Blood hemoglobin measurement (mass/volume)on 03-30-2022 Hemoglobin (Bld) [Mass/Vol] 12.9 g/dL 12.0-15.0 [facility] Work Phone: Blood lymphocytes/100 leukoc yteson 03-30-2022 Lymphocytes/100 WBC (Bld) 29.0 % 19-41 [facility] Work Phone: Blood monocytes/100 leukocyt eson 03-30-2022 Monocytes/100 WBC (Bld) 6.7 % 0-10 [facility] Work Phone: Blood platelet mean volumeon 03-30-2022 Platelet mean volume (Bld) [Entitic vol] 8.6 fL 6.2-12.0 [facility] Work Phone: Determination of erythrocyte mean corpuscular volume (MCV)on 03-30-2022 MCV (RBC) [Entitic vol] 98.0 fL 81-99 [facility] Work Phone: Hematocrit Auto (Bld) [Volum e fraction]on 03-30-2022 Hematocrit (Bld) [Volume fraction] 38.4 % 37-47 [facility] Work Phone: Laboratory - Hematology and Cell countson 03-30-2022 Erythrocyte distribution width (RBC) [Entitic vol] 47.5 fL 35.1-43.9 [facility] Work Phone: Erythrocyte distribution width (RBC) [Ratio] 13.2 % 11.6-14.6 [facility] Work Phone: Immature granulocytes/100 WBC (Bld) 0.200 % 0.0-0.9 [facility] Work Phone: [phone] Comment on above: IG% - Immature Granu locytes (promyelocytes, myelocytes and metamyelocytes) > 1% indicates that a LEFT SHIFT is Present. MCH (RBC) [Entitic mass] 32.9 pg 27.0-32.0 [facility] Work Phone: Nucleated RBC/100 WBC (Bld) [Ratio] 0 % 0-5 [facility] Work Phone: MCHC Auto (RBC) [Mass/Vol]on 03-30-2022 MCHC (RBC) [Mass/Vol] 33.6 g/dL 32-[address] [facility] Work Phone: Platelets bldon 03-30-2022 Platelets (Bld) [#/Vol] 215 10*3/uL 150-450 [facility] Work Phone: [phone] Absolute lymphocyte counton 02-22-2022 Lymphocytes Auto (Unsp spec) [#/Vol] 1.54 10*3/uL 0.83-4.51 [facility] Work Phone: [phone] Basophil percentageon 2021 Basophils/100 WBC (Bld) 0.7 % 0-1 [facility] Work Phone: [phone] Eosinophils/100 WBC (Bld) 1.2 % 0-5 [facility] Work Phone: [phone] Neutrophils (Bld) [#/Vol] 3.8 10*3/uL 2.0-7.7 [facility] Work Phone: [phone] Neutrophils/100 WBC (Bld) 65.6 % 47-70 [facility] Work Phone: [phone] WBC (Bld) [#/Vol] 5.8 10*3/uL 4.4-11.0 [facility]: Blood erythrocytes count (nu mber/volume)on 02-22-2022 RBC (Bld) [#/Vol] 3.79 10*6/uL 4.2-5.4 [facility] Work Phone: Blood hemoglobin measurement (mass/volume)on 02-22-2022 Hemoglobin (Bld) [Mass/Vol] 12.2 g/dL 12.0-15.0 [facility] Work Phone: [phone] Blood lymphocytes/100 leukoc yteson 02-22-2022 Lymphocytes/100 WBC (Bld) 26.4 % 19-41 [facility] Work Phone: Blood monocytes/100 leukocyt eson 02-22-2022 Monocytes/100 WBC (Bld) 5.8 % 0-10 [facility] Work Phone: [phone] Blood platelet mean volumeon 02-22-2022 Platelet mean volume (Bld) [Entitic vol] 8.5 fL 6.2-12.0 [facility] Work Phone: Determination of erythrocyte mean corpuscular volume (MCV)on 02-22-2022 MCV (RBC) [Entitic vol] 98.9 fL 81-99 [facility] Work Phone: Hematocrit Auto (Bld) [Volum e fraction]on 02-22-2022 Hematocrit (Bld) [Volume fraction] 37.5 % 37-47 [facility] Work Phone: Laboratory - Hematology and Cell countson 02-22-2022 Erythrocyte distribution width (RBC) [Entitic vol] 45.9 fL 35.1-43.9 [facility] Work Phone: Erythrocyte distribution width (RBC) [Ratio] 12.7 % 11.6-14.6 [facility] Work Phone: Immature granulocytes/100 WBC (Bld) 0.300 % 0.0-0.9 [facility] Work Phone: Comment on above: IG% - Immature Granu locytes (promyelocytes, myelocytes and metamyelocytes) > 1% indicates that a LEFT SHIFT is Present. MCH (RBC) [Entitic mass] 32.2 pg 27.0-32.0 [facility] Work Phone: Nucleated RBC/100 WBC (Bld) [Ratio] 0 % 0-5 [facility] Work Phone: MCHC Auto (RBC) [Mass/Vol]on 02-22-2022 MCHC (RBC) [Mass/Vol] 32.5 g/dL 32-36 [facility] Work Phone: Platelets bldon 02-22-2022 Platelets (Bld) [#/Vol] 227 10*3/uL 150-450 [facility] Work Phone: Absolute lymphocyte counton 01-24-2022 Lymphocytes Auto (Unsp spec) [#/Vol] 1.40 10*3/uL 0.83-4.51 [facility] Work Phone: Basophil percentageon 2021 Basophils/100 WBC (Bld) 0.8 % 0-1 [facility] Work Phone: Eosinophils/100 WBC (Bld) 1.9 % 0-5 [facility] Work Phone: Neutrophils (Bld) [#/Vol] 3.5 10*3/uL 2.0-7.7 [facility] Work Phone: [phone] Neutrophils/100 WBC (Bld) 64.9 % 47-70 [facility] Work Phone: WBC (Bld) [#/Vol] 5.3 10*3/uL 4.4-11.0 [facility] Work Phone: Blood erythrocytes count (nu mber/volume)on 01-24-2022 RBC (Bld) [#/Vol] 3.91 10*6/uL 4.2-5.4 [facility] Work Phone: Blood hemoglobin measurement (mass/volume)on 01-24-2022 Hemoglobin (Bld) [Mass/Vol] 12.5 g/dL 12.0-15.0 [facility] Work Phone: Blood lymphocytes/100 leukoc yteson 01-24-2022 Lymphocytes/100 WBC (Bld) 26.4 % 19-41 [facility] Work Phone: Blood monocytes/100 leukocyt eson 01-24-2022 Monocytes/100 WBC (Bld) 5.6 % 0-10 [facility] Work Phone: Blood platelet mean volumeon 01-24-2022 Platelet mean volume (Bld) [Entitic vol] 9.1 fL 6.2-12.0 [facility] Work Phone: Determination of erythrocyte mean corpuscular volume (MCV)on 01-24-2022 MCV (RBC) [Entitic vol] 97.7 fL 81-99 [facility] Work Phone: Hematocrit Auto (Bld) [Volum e fraction]on 01-24-2022 Hematocrit (Bld) [Volume fraction] 38.2 % 37-47 [facility] Work Phone: Laboratory - Hematology and Cell countson 01-24-2022 Erythrocyte distribution width (RBC) [Entitic vol] 44.6 fL 35.1-43.9 [facility] Work Phone: Erythrocyte distribution width (RBC) [Ratio] 12.4 % 11.6-14.6 [facility] Work Phone: [phone] Immature granulocytes/100 WBC (Bld) 0.400 % 0.0-0.9 [facility] Work Phone: Comment on above: IG% - Immature Granu locytes (promyelocytes, myelocytes and metamyelocytes) > 1% indicates that a LEFT SHIFT is Present. MCH (RBC) [Entitic mass] 32.0 pg 27.0-32.0 [facility] Work Phone: Nucleated RBC/100 WBC (Bld) [Ratio] 0 % 0-5 [facility] Work Phone: MCHC Auto (RBC) [Mass/Vol]on 01-24-2022 MCHC (RBC) [Mass/Vol] 32.7 g/dL 32-36 [facility] Work Phone: [phone] Platelets bldon 01-24-2022 Platelets (Bld) [#/Vol] 232 10*3/uL 150-450 [facility] Work Phone: [phone] Absolute lymphocyte counton 12-26-2021 Lymphocytes Auto (Unsp spec) [#/Vol] 1.31 10*3/uL 0.83-4.51 [facility] Work Phone: Basophil percentageon 2021 Basophils/100 WBC (Bld) 0.8 % 0-1 [facility] Work Phone: Eosinophils/100 WBC (Bld) 1.0 % 0-5 [facility] Work Phone: [phone] Neutrophils (Bld) [#/Vol] 3.3 10*3/uL 2.0-7.7 [facility] Work Phone: Neutrophils/100 WBC (Bld) 65.0 % 47-70 [facility] Work Phone: WBC (Bld) [#/Vol] 5.1 10*3/uL 4.4-11.0 [facility] Work Phone: Blood erythrocytes count (nu mber/volume)on 12-26-2021 RBC (Bld) [#/Vol] 3.92 10*6/uL 4.2-5.4 [facility] Work Phone: Blood hemoglobin measurement (mass/volume)on 12-26-2021 Hemoglobin (Bld) [Mass/Vol] 12.6 g/dL 12.0-15.0 [facility] Work Phone: Blood lymphocytes/100 leukoc yteson 12-26-2021 Lymphocytes/100 WBC (Bld) 25.6 % 19-41 [facility] Work Phone: Blood monocytes/100 leukocyt eson 12-26-2021 Monocytes/100 WBC (Bld) 7.4 % 0-10 [facility] Work Phone: Blood platelet mean volumeon 12-26-2021 Platelet mean volume (Bld) [Entitic vol] 8.9 fL 6.2-12.0 [facility] Work Phone: Determination of erythrocyte mean corpuscular volume (MCV)on 12-26-2021 MCV (RBC) [Entitic vol] 100.8 fL 81-99 [facility] Work Phone: Hematocrit Auto (Bld) [Volum e fraction]on 12-26-2021 Hematocrit (Bld) [Volume fraction] 39.5 % 37-47 [facility] Work Phone: Laboratory - Hematology and Cell countson 12-26-2021 Erythrocyte distribution width (RBC) [Entitic vol] 46.5 fL 35.1-43.9 [facility] Work Phone: Erythrocyte distribution width (RBC) [Ratio] 12.4 % 11.6-14.6 [facility] Work Phone: Immature granulocytes/100 WBC (Bld) 0.200 % 0.0-0.9 [facility] Work Phone: Comment on above: IG% - Immature Granu locytes (promyelocytes, myelocytes and metamyelocytes) > 1% indicates that a LEFT SHIFT is Present. MCH (RBC) [Entitic mass] 32.1 pg 27.0-32.0 [facility] Work Phone: Nucleated RBC/100 WBC (Bld) [Ratio] 0 % 0-5 [facility] Work Phone: [phone] MCHC Auto (RBC) [Mass/Vol]on 12-26-2021 MCHC (RBC) [Mass/Vol] 31.9 g/dL 32-[address] [facility] Platelets bldon 12-26-2021 Platelets (Bld) [#/Vol] 223 10*3/uL 150-450 [facility] Work Phone: Absolute lymphocyte counton 11-28-2021 Lymphocytes Auto (Unsp spec) [#/Vol] 1.52 10*3/uL 0.83-4.51 [facility] Work Phone: Basophil percentageon 2021 Basophils/100 WBC (Bld) 0.8 % 0-1 [facility] Work Phone: Eosinophils/100 WBC (Bld) 1.2 % 0-5 [facility] Work Phone: Neutrophils (Bld) [#/Vol] 3.1 10*3/uL 2.0-7.7 [facility] Work Phone: Neutrophils/100 WBC (Bld) 60.9 % 47-70 [facility] Work Phone: WBC (Bld) [#/Vol] 5.0 10*3/uL 4.4-11.0 [facility] Work Phone: Blood erythrocytes count (nu mber/volume)on 11-28-2021 RBC (Bld) [#/Vol] 3.92 10*6/uL 4.2-5.4 [facility] Work Phone: Blood hemoglobin measurement (mass/volume)on 11-28-2021 Hemoglobin (Bld) [Mass/Vol] 12.8 g/dL 12.0-15.0 [facility] Work Phone: Blood lymphocytes/100 leukoc yteson 11-28-2021 Lymphocytes/100 WBC (Bld) 30.2 % 19-41 [facility] Work Phone: Blood monocytes/100 leukocyt eson 11-28-2021 Monocytes/100 WBC (Bld) 6.7 % 0-10 [facility] Work Phone: Blood platelet mean volumeon 11-28-2021 Platelet mean volume (Bld) [Entitic vol] 8.9 fL 6.2-12.0 [facility] Work Phone: Determination of erythrocyte mean corpuscular volume (MCV)on 11-28-2021 MCV (RBC) [Entitic vol] 101.0 fL 81-99 [facility] Work Phone: Hematocrit Auto (Bld) [Volum e fraction]on 11-28-2021 Hematocrit (Bld) [Volume fraction] 39.6 % 37-47 [facility] Work Phone: Laboratory - Hematology and Cell countson 11-28-2021 Erythrocyte distribution width (RBC) [Entitic vol] 47.0 fL 35.1-43.9 [facility] Work Phone: Erythrocyte distribution width (RBC) [Ratio] 12.5 % 11.6-14.6 [facility] Work Phone: Immature granulocytes/100 WBC (Bld) 0.200 % 0.0-0.9 [facility] Work Phone: Comment on above: IG% - Immature Granu locytes (promyelocytes, myelocytes and metamyelocytes) > 1% indicates that a LEFT SHIFT is Present. MCH (RBC) [Entitic mass] 32.7 pg 27.0-32.0 [facility] Work Phone: [phone] Nucleated RBC/100 WBC (Bld) [Ratio] 0 % 0-5 [facility] Work Phone: [phone] MCHC Auto (RBC) [Mass/Vol]on 11-28-2021 MCHC (RBC) [Mass/Vol] 32.3 g/dL 32-36 [facility] Work Phone: [phone] Platelets bldon 11-28-2021 Platelets (Bld) [#/Vol] 214 10*3/uL 150-450 [facility] Work Phone: [phone] Basophil percentageon 2021 Bilirubin [Mass/Vol] 0.40 mg/dL 0.20-1.[address] [facility] Work Phone: [phone] Comment on above: For patients on eltr ombopag therapy, use of Dimension [place] TBIL is not recommended. Chloride [Moles/Vol] 109 mmol/L 98-[address] [facility] Work Phone: Cholesterol [Mass/Vol] 158 mg/dL <200 [facility] Work Phone: [phone] Comment on above: <200 mg/dL Desirable 200-240 mg/dL Borderline >240 mg/dL High Risk Glucose [Mass/Vol] 94 mg/dL 74-106 [facility] Work Phone: [phone] Potassium [Moles/Vol] 3.9 mmol/L 3.5-5.1 [facility] Work Phone: [phone] Protein [Mass/Vol] 6.8 g/dL 6.4-8.2 [facility] Work Phone: [phone] Sodium [Moles/Vol] 139 mmol/L 136-145 [facility] Work Phone: [phone] Triglyceride [Mass/Vol] 64 mg/dL <199 [facility] Work Phone: Comment on above: The drugs N-Acetylcy steine and Metamizole may falsely depress this assay.Serum Triglycerides Reference Interval Normal <150 mg/dL Borderline high 150 - 199 mg/dL High 200 - 499 mg/dL Very High > or = 500 mg/dL Laboratory - Chemistry and C hemistry - challengeon 10-26-2021 ALP [Catalytic activity/Vol] 68 U/L 45-117 [facility] Work Phone: ALT [Catalytic activity/Vol] 15 U/L 13-56 [facility] Work Phone: CO2 [Moles/Vol] 26.0 mmol/L 21.0-32.0 [facility] Work Phone: Free T4 [Mass/Vol] 0.85 ng/dL 0.76-1.46 [facility] Work Phone: Globulin (S) [Mass/Vol] 3.1 g/dL 2.2-4.2 [facility] Work Phone: Urea nitrogen/Creatinine [Mass ratio] 14.3 mg/mg 10-20 [facility] Work Phone: No Panel Informationon 10-26 Estimated GFR (MDRD) Amer 61 mL/min >60 [facility] Work Phone: Comment on above: GFR Calc Estimated GFR (MDRD) Non-Af Amer 51 mL/min >60 [facility] Work Phone: Comment on above: Non- GFR Calc Free Triiodothyronine (T3) pg/dL 3.2 pg/mL 2.18-3.98 [facility] Work Phone: Miscellaneous Test See comment [facility] Work Phone: Comment on above: TEST RESULT LIMITSMe tanephrines, Frac., Pl. Free Normetanephrine, Pl 123.8 pg/mL 0.0-244.0 Metanephrine, Pl 25.2 pg/mL 0.0-88.0 __ TESTING PERFORMED AT [facility]. ORIGINAL REPORT ON FILE IN LAB CONTAINS ADDITIONAL TEST SITE INFORMATION. Thyroid Stimulating Hormone (TSH) 1.15 uIU/mL 0.358-3.74 [facility] Work Phone: Vitamin D 25-Hydroxy 87.6 ng/mL [facility] Work Phone: Comment on above: Vitamin D 25(OH) Sta tus Range Deficiency <20 ng/mL (50nmol/L) Insufficiency 20 - 30 ng/mL (50 - 75 nmol/L) Sufficiency 30 - 100 ng/mL (75 - 250 nmol/L) Toxicity >100 ng/mL (>250 nmol/L) Serum or plasma albumin derrick urement (mass/volume)on 10-26-2021 Albumin [Mass/Vol] 3.7 g/dL 3.2-5.0 [facility] Work Phone: Serum or plasma albumin/glob ulin mass ratioon 10-26-2021 Albumin/Globulin [Mass ratio] 1.2 {ratio} 0.9-2.4 [facility] Work Phone: Serum or plasma calcium derrick urement (mass/volume)on 10-26-2021 Calcium [Mass/Vol] 9.2 mg/dL 8.5-10.1 [facility] Work Phone: Serum or plasma cholesterol in HDL measurement (mass/volume)on 10-26-2021 Cholesterol in HDL [Mass/Vol] 40 mg/dL >40 [facility] Work Phone: Comment on above: The drugs N-Acetylcy steine and Metamizole may falsely depress this assay. Reference Range HDL <40 mg/dL Low HDL Cholesterol HDL >or= 60 mg/dL High HDL Cholesterol Serum or plasma cholesterol in VLDL measurement (mass/volume)on 10-26-2021 Cholesterol in VLDL [Mass/Vol] 13 mg/dL 5-40 [facility] Work Phone: Serum or plasma creatinine m easurement (mass/volume)on 10-26-2021 Creatinine [Mass/Vol] 1.19 mg/dL 0.55-1.02 [facility] Work Phone: Comment on above: The validity of the calculated GFR & GFRAA in patients over 70 years has not been determined. Clinical correlation is essential. Serum or plasma low density lipoprotein (LDL) cholesterol measurement (mass/volume)on 10-26-2021 Cholesterol in LDL [Mass/Vol] 105 mg/dL 0-130 [facility] Work Phone: Serum or plasma urea nitroge n measurement (mass/volume)on 10-26-2021 Urea nitrogen [Mass/Vol] 17 mg/dL 7-18 [facility] Work Phone: Thin prep Papanicolaou smear with manual screeningon 10-26-2021 Thin prep Papanicolaou smear with manual screening 9 U/L 15-37 [facility] Work Phone: Thin prep Papanicolaou smear with manual screening 4 5-15 [facility] Work Phone: Thin prep Papanicolaou smear with manual screening 5.3 mg/L NO RANGE EST. [facility] Work Phone: Whole blood hemoglobin A1c/t otal hemoglobin ratio (mass fraction)on 10-26-2021 HbA1c (Bld) [Mass fraction] 5.1 % 3.8-5.6 [facility] Work Phone: Comment on above: Normal < 5.7 % Predi abetic 5.7 - 6.4 % Diabetic >or= 6.5 % Please note range changes. Absolute lymphocyte counton 10-25-2021 Lymphocytes Auto (Unsp spec) [#/Vol] 1.26 10*3/uL 0.83-4.51 [facility] Work Phone: Basophil percentageon 2021 Basophils/100 WBC (Bld) 0.7 % 0-1 [facility] Work Phone: Eosinophils/100 WBC (Bld) 0.7 % 0-5 [facility] Work Phone: Neutrophils (Bld) [#/Vol] 4.1 10*3/uL 2.0-7.7 [facility] Work Phone: Neutrophils/100 WBC (Bld) 69.9 % 47-70 [facility] Work Phone: WBC (Bld) [#/Vol] 5.8 10*3/uL 4.4-11.0 [facility] Work Phone: Blood erythrocytes count (nu mber/volume)on 10-25-2021 RBC (Bld) [#/Vol] 3.74 10*6/uL 4.2-5.4 [facility] Work Phone: Blood hemoglobin measurement (mass/volume)on 10-25-2021 Hemoglobin (Bld) [Mass/Vol] 12.8 g/dL 12.0-15.0 [facility] Work Phone: Blood lymphocytes/100 leukoc yteson 10-25-2021 Lymphocytes/100 WBC (Bld) 21.8 % 19-41 [facility] Work Phone: Blood monocytes/100 leukocyt eson 10-25-2021 Monocytes/100 WBC (Bld) 6.4 % 0-10 [facility] Work Phone: Blood platelet mean volumeon 10-25-2021 Platelet mean volume (Bld) [Entitic vol] 9.1 fL 6.2-12.0 [facility] Work Phone: Determination of erythrocyte mean corpuscular volume (MCV)on 10-25-2021 MCV (RBC) [Entitic vol] 101.9 fL 81-99 [facility] Work Phone: Hematocrit Auto (Bld) [Volum e fraction]on 10-25-2021 Hematocrit (Bld) [Volume fraction] 38.1 % 37-47 [facility] Work Phone: Laboratory - Hematology and Cell countson 10-25-2021 Erythrocyte distribution width (RBC) [Entitic vol] 46.9 fL 35.1-43.9 [facility] Work Phone: Erythrocyte distribution width (RBC) [Ratio] 12.5 % 11.6-14.6 [facility] Work Phone: Immature granulocytes/100 WBC (Bld) 0.500 % 0.0-0.9 [facility] Work Phone: Comment on above: IG% - Immature Granu locytes (promyelocytes, myelocytes and metamyelocytes) > 1% indicates that a LEFT SHIFT is Present. MCH (RBC) [Entitic mass] 34.2 pg 27.0-32.0 [facility] Work Phone: Nucleated RBC/100 WBC (Bld) [Ratio] 0 % 0-5 [facility] Work Phone: MCHC Auto (RBC) [Mass/Vol]on 10-25-2021 MCHC (RBC) [Mass/Vol] 33.6 g/dL 32-36 [facility] Work Phone: Platelets bldon 10-25-2021 Platelets (Bld) [#/Vol] 213 10*3/uL 150-450 [facility] Work Phone: Laboratory - Microbiology an d Antimicrobial susceptibilityon 09-13-2021 SARS-CoV-2 (COVID-19) RNA ALVA+probe Ql (Unsp spec) Not detected Not Detect [facility] Work Phone: Comment on above: Normal Reference Ran ge: Not DetectedMethod:(RT-PCR) real-time reverse transcriptase PCRLuminex SHRAVAN Instrument*The Food and Drug Administration (FDA) has issued an Emergency Use Authorization (EAU) for the SHRAVAN SARS-CoV-2 Assay for the rapid detection of the virus that causes COVID-19. This test has been validated, but the [facility] independent review of this validation is pending.*Negative [...] Auto (Unsp spec) [#/Vol] 1.49 10*3/uL 0.83-4.51 [facility] Work Phone: Basophil percentageon 2021 Basophils/100 WBC (Bld) 0.6 % 0-1 [facility] Work Phone: [phone] Eosinophils/100 WBC (Bld) 0.8 % 0-5 [facility] Work Phone: [phone] Neutrophils (Bld) [#/Vol] 3.2 10*3/uL 2.0-7.7 [facility] Work Phone: Neutrophils/100 WBC (Bld) 62.8 % 47-70 [facility] Work Phone: WBC (Bld) [#/Vol] 5.1 10*3/uL 4.4-11.0 [facility] Work Phone: [phone] Cholesterol [Mass/Vol] 158 mg/dL <200 [facility] Work Phone: [phone] Comment on above: <200 mg/dL Desirable 200-240 mg/dL Borderline >240 mg/dL High Risk Triglyceride [Mass/Vol] 83 mg/dL [facility] Work Phone: Comment on above: The drugs N-Acetylcy steine and Metamizole may falsely depress this assay.Serum Triglycerides Reference Interval Normal <150 mg/dL Borderline high 150 - 199 mg/dL High 200 - 499 mg/dL Very High > or = 500 mg/dL Blood erythrocytes count (nu mber/volume)on 09-05-2021 RBC (Bld) [#/Vol] 4.03 10*6/uL 4.2-5.4 [facility] Work Phone: Blood hemoglobin measurement (mass/volume)on 09-05-2021 Hemoglobin (Bld) [Mass/Vol] 13.1 g/dL 12.0-15.0 [facility] Work Phone: Blood lymphocytes/100 leukoc yteson 09-05-2021 Lymphocytes/100 WBC (Bld) 29.0 % 19-41 [facility] Work Phone: Blood monocytes/100 leukocyt eson 09-05-2021 Monocytes/100 WBC (Bld) 6.6 % 0-10 [facility] Work Phone: Blood platelet mean volumeon 09-05-2021 Platelet mean volume (Bld) [Entitic vol] 9.0 fL 6.2-12.0 [facility] Work Phone: Determination of erythrocyte mean corpuscular volume (MCV)on 09-05-2021 MCV (RBC) [Entitic vol] 98.8 fL 81-99 [facility] Work Phone: Hematocrit Auto (Bld) [Volum e fraction]on 09-05-2021 Hematocrit (Bld) [Volume fraction] 39.8 % 37-47 [facility] Work Phone: Laboratory - Hematology and Cell countson 09-05-2021 Erythrocyte distribution width (RBC) [Entitic vol] 48.8 fL 35.1-43.9 [facility] Work Phone: Erythrocyte distribution width (RBC) [Ratio] 13.3 % 11.6-14.6 [facility] Work Phone: Immature granulocytes/100 WBC (Bld) 0.200 % 0.0-0.9 [facility] Work Phone: Comment on above: IG% - Immature Granu locytes (promyelocytes, myelocytes and metamyelocytes) > 1% indicates that a LEFT SHIFT is Present. MCH (RBC) [Entitic mass] 32.5 pg 27.0-32.0 [facility] Work Phone: Nucleated RBC/100 WBC (Bld) [Ratio] 0 % 0-5 [facility] Work Phone: MCHC Auto (RBC) [Mass/Vol]on 09-05-2021 MCHC (RBC) [Mass/Vol] 32.9 g/dL 32-[address] [facility] Work Phone: Platelets bldon 09-05-2021 Platelets (Bld) [#/Vol] 190 10*3/uL 150-450 [facility] Work Phone: Serum or plasma cholesterol in HDL measurement (mass/volume)on 09-05-2021 Cholesterol in HDL [Mass/Vol] 43 mg/dL [facility] Work Phone: Comment on above: The drugs N-Acetylcy steine and Metamizole may falsely depress this assay. Reference Range HDL <40 mg/dL Low HDL Cholesterol HDL >or= 60 mg/dL High HDL Cholesterol Serum or plasma cholesterol in VLDL measurement (mass/volume)on 09-05-2021 Cholesterol in VLDL [Mass/Vol] 17 mg/dL 5-40 [facility] Work Phone: Serum or plasma low density lipoprotein (LDL) cholesterol measurement (mass/volume)on 09-05-2021 Cholesterol in LDL [Mass/Vol] 98 mg/dL 0-130 [facility] Work Phone: Absolute lymphocyte counton 07-27-2021 Lymphocytes Auto (Unsp spec) [#/Vol] 0.85 10*3/uL 0.83-4.51 [facility] Work Phone: Basophil percentageon 2020 Eosinophils/100 WBC (Bld) 1.1 % 0-5 [facility] Work Phone: Neutrophils (Bld) [#/Vol] 3.3 10*3/uL 2.0-7.7 [facility] Work Phone: WBC (Bld) [#/Vol] 4.5 10*3/uL 4.4-11.0 [facility] Work Phone: Blood erythrocytes count (nu mber/volume)on 07-27-2021 RBC (Bld) [#/Vol] 3.82 10*6/uL 4.2-5.4 [facility] Work Phone: Blood hemoglobin measurement (mass/volume)on 07-27-2021 Hemoglobin (Bld) [Mass/Vol] 12.8 g/dL 12.0-15.0 [facility] Work Phone: Blood lymphocytes/100 leukoc yteson 07-27-2021 Lymphocytes/100 WBC (Bld) 18.9 % 19-41 [facility] Work Phone: Blood monocytes/100 leukocyt eson 07-27-2021 Monocytes/100 WBC (Bld) 6.7 % 0-10 [facility] Work Phone: Blood platelet mean volumeon 07-27-2021 Platelet mean volume (Bld) [Entitic vol] 8.9 fL 6.2-12.0 [facility] Work Phone: Determination of erythrocyte mean corpuscular volume (MCV)on 07-27-2021 MCV (RBC) [Entitic vol] 98.4 fL 81-99 [facility] Work Phone: Hematocrit Auto (Bld) [Volum e fraction]on 07-27-2021 Hematocrit (Bld) [Volume fraction] 37.6 % 37-47 [facility] Work Phone: Laboratory - Chemistry and C hemistry - challengeon 07-27-2021 Free T4 [Mass/Vol] 0.79 ng/dL 0.76-1.46 [facility] Work Phone: Cobalamin (Vitamin B12) [Mass/Vol] 327 pg/mL 211-911 [facility] Work Phone: Laboratory - Hematology and Cell countson 07-27-2021 Basophils/100 WBC (Unsp spec) 0.4 % 0-1 [facility] Work Phone: Erythrocyte distribution width (RBC) [Entitic vol] 53.5 fL 35.1-43.9 [facility] Work Phone: Erythrocyte distribution width (RBC) [Ratio] 14.9 % 11.6-14.6 [facility] Work Phone: Immature granulocytes/100 WBC (Bld) 0.400 % 0.0-0.9 [facility] Work Phone: Comment on above: IG% - Immature Granu locytes (promyelocytes, myelocytes and metamyelocytes) > 1% indicates that a LEFT SHIFT is Present. MCH (RBC) [Entitic mass] 33.5 pg 27.0-32.0 [facility] Work Phone: Neutrophils/100 WBC (Bld) 72.5 % 47-70 [facility] Work Phone: Nucleated RBC/100 WBC (Bld) [Ratio] 0 % 0-5 [facility] Work Phone: MCHC Auto (RBC) [Mass/Vol]on 07-27-2021 MCHC (RBC) [Mass/Vol] 34.0 g/dL 32-36 [facility] Work Phone: No Panel Informationon 07-27 Free Triiodothyronine (T3) pg/dL 2.2 pg/mL 2.18-3.98 [facility] Work Phone: Thyroid Stimulating Hormone (TSH) 0.99 uIU/mL 0.358-3.74 [facility] Work Phone: Vitamin D 25-Hydroxy 73.8 ng/mL [facility] Work Phone: Comment on above: Vitamin D 25(OH) Sta tus Range Deficiency <20 ng/mL (50nmol/L) Insufficiency 20 - 30 ng/mL (50 - 75 nmol/L) Sufficiency 30 - 100 ng/mL (75 - 250 nmol/L) Toxicity >100 ng/mL (>250 nmol/L) Platelets bldon 07-27-2021 Platelets (Bld) [#/Vol] 180 10*3/uL 150-450 [facility] Work Phone: .Auto Diffon 05-07-2019 Ammonia (P) [Mass/Vol] 0.70 10 3/mcL Normal 0.15-1.00 [facility] ([place]) Comment on above: Performed By: #### C AMADA CALVIN, ANEU #### [place] [address] #### BMP, GFR #### [address] [address] Basophils (Bld) [#/Vol] 0.10 10 3/mcL Normal 0.00-0.19 [facility] ([place]) Comment on above: Performed By: #### AMADA PALACIOS, ANEU #### [place] [address] #### BMP, GFR #### [address] [address] Basophils/100 WBC (Bld) 1.4 % Normal 0.0-2.5 [facility] ([place]) Comment on above: Performed By: #### C AMADA CALVIN, ANEU #### [place] [address] #### BMP, GFR #### [address] [address] Eosinophils (Bld) [#/Vol] 0.10 10 3/mcL Normal 0.00-0.40 [facility] ([place]) Comment on above: Performed By: #### AMADA PALACIOS, ANEU #### [place] [address] #### BMP, GFR #### [address] [address] Eosinophils/100 WBC (Bld) 1.0 % Normal 0.0-7.0 [facility] ([place]) Comment on above: Performed By: #### C BC, ADIFF, ANEU #### [address] [address] #### BMP, GFR #### [address] [address] Lymphocytes (Bld) [#/Vol] 3.20 10 3/mcL Normal 0.77-3.85 [facility] ([place]) Comment on above: Performed By: #### C BC, ADIFF, ANEU #### [address] [address] #### BMP, GFR #### [address] [address] Lymphocytes/100 WBC (Bld) 35.8 % Normal 10.0-50.0 [facility] ([place]) Comment on above: Performed By: #### C BC, ADIFF, ANEU #### [address] [address] #### BMP, GFR #### [address] [address] Monocytes/100 WBC (Bld) 8.0 % Normal 1.7-13.0 [facility] ([place]) Comment on above: Performed By: #### C BC, ADIFF, ANEU #### [address] [address] #### BMP, GFR #### [address] [address] Neutrophils/100 WBC (Bld) 53.8 % Normal 37.0-80.0 [facility] ([place]) Comment on above: Performed By: #### C BC, ADIFF, ANEU #### [address] [address] #### BMP, GFR #### [address] [address] .GFRon 05-07-2019 GFR 65 ml/min/1.73sqm Normal [facility] ([place]) Comment on above: Result Comment: [...] By: #### C BC, ADIFF, ANEU #### [address] [address] #### TSH, CMP, GFR, VIDH #### [address] [address] GFR Non- 53 ml/min/1.73sqm Normal [facility] ([place]) Comment on above: Result Comment: GFR Population [...] By: #### C BC, ADIFF, ANEU #### [address] [address] #### TSH, CMP, GFR, VIDH #### [address] [address] .NEUABSon 05-07-2019 Neutrophils (Bld) [#/Vol] 4.70 10 3/mcL Normal 2.85-6.16 [facility] ([place]) Comment on above: Performed By: #### C BC, TANVIIFF, ANEU #### [place] [id number] #### BMP, GFR #### [address] [address] .Urinalysis Microscopic (AO) on 05-07-2019 RBC (U) [#/Vol] 0-5 None Seen [facility] ([place]) Comment on above: Performed By: #### C BC, ADIFF, ANEU #### [place] [address] #### TSH, CMP, GFR, VIDH #### [place] [address] UA Squam Epithelial 0-5 None Seen [facility] ([place]) Comment on above: Performed By: #### C BC, ADIFF, ANEU #### [place] [address] #### TSH, CMP, GFR, VIDH #### [place] [address] UA WBC 0-5 None Seen [facility] ([place]) Comment on above: Performed By: #### C BC, ADIFF, ANEU #### [place] [address] #### TSH, CMP, GFR, VIDH #### [place] [address] BMPon 05-07-2019 Calcium [Mass/Vol] 9.6 mg/dL Normal 8.4-10.2 [facility] ([place]) Comment on above: Performed By: #### C BC, ADIFF, ANEU #### [place] [address] #### TSH, CMP, GFR, VIDH #### [place] [address] Chloride [Moles/Vol] 103 mmol/L Normal 98-107 [facility] ([place]) Comment on above: Performed By: #### C BC, ADIFF, ANEU #### [place] [address] #### TSH, CMP, GFR, VIDH #### [address] [address] CO2 [Moles/Vol] 29 mmol/L Normal 22-29 [facility] ([place]) Comment on above: Performed By: #### C BCTANVIIFF, ANEU #### [address] [address] #### TSH, CMP, GFR, VIDH #### [address] [address] Creatinine [Mass/Vol] 1.09 mg/dL High 0.55-1.02 [facility] ([place]) Comment on above: Performed By: #### C BC, ADIFF, ANEU #### [place] [address] #### TSH, CMP, GFR, VIDH #### [address] [address] Electrolyte Balance 11.0 mEq/L Normal [facility] ([place]) Comment on above: Performed By: #### C TANVI CALVINIFF, ANEU #### [place] [address] #### TSH, CMP, GFR, VIDH #### [address] [address] Glucose [Mass/Vol] 110 mg/dL High 70-105 [facility] ([place]) Comment on above: Performed By: #### C NIKUNJ, ADIFF, ANEU #### [place] [address] #### TSH, CMP, GFR, VIDH #### [address] [address] Potassium [Moles/Vol] 3.9 mmol/L Normal 3.5-5.1 [facility] ([place]) Comment on above: Performed By: #### C BC ADIFF, ANEU #### [place] [address] #### TSH, CMP, GFR, VIDH #### [address] [address] Sodium [Moles/Vol] 143 mmol/L Normal 136-145 [facility] ([place]) Comment on above: Performed By: #### C BC, ADIFF, ANEU #### [address] [address] #### TSH, CMP, GFR, VIDH #### [address] [address] Urea nitrogen [Mass/Vol] 11 mg/dL Normal 7-18 [facility] ([place]) Comment on above: Performed By: #### C BC, ADIFF, ANEU #### [place] [address] #### TSH, CMP, GFR, VIDH #### [address] [address] Urea nitrogen/Creatinine [Mass ratio] 10 ratio Normal 7-27 [facility] ([place]) Comment on above: Performed By: #### C BC, ADIFF, ANEU #### [place] [address] #### TSH, CMP, GFR, VIDH #### [address] [address] CBCon 05-07-2019 Erythrocyte distribution width (RBC) [Ratio] 13.1 % Normal 11.5-14.5 [facility] ([place]) Comment on above: Performed By: #### C BC, ADIFF, ANEU #### [place] [address] #### BMP, GFR #### [address] [address] Hematocrit (Bld) [Volume fraction] 42.8 % Normal 37.0-47.0 [facility] ([place]) Comment on above: Performed By: #### C BC, ADIFF, ANEU #### [place] [address] #### BMP, GFR #### [address] [address] Hemoglobin (Bld) [Mass/Vol] 14.6 G/dL Normal 12.0-16.0 [facility] ([place]) Comment on above: Performed By: #### C BC, ADIFF, ANEU #### [address] [address] #### BMP, GFR #### [address] [address] MCH (RBC) [Entitic mass] 32.4 pg High 27.0-31.2 [facility] ([place]) Comment on above: Performed By: #### C BC, ADIFF, ANEU #### [place] [address] #### BMP, GFR #### [address] [address] MCHC (RBC) [Mass/Vol] 34.0 G/dL Normal 33.0-37.0 [facility] ([place]) Comment on above: Performed By: #### C NIKUNJ, ADIFF, ANEU #### [place] [address] #### BMP, GFR #### [address] [address] MCV (RBC) [Entitic vol] 95.1 fL High 80.0-94.0 [facility] ([place]) Comment on above: Performed By: #### C NIKUNJ, ADIFF, ANEU #### [place] [address] #### BMP, GFR #### [address] [address] Platelet mean volume (Bld) [Entitic vol] 7.2 fL Low 7.4-10.4 [facility] ([place]) Comment on above: Performed By: #### C BC, ADIFF, ANEU #### [place] [id number] #### BMP, GFR #### [address] [address] Platelets (Bld) [#/Vol] 297 10 3/mcL Normal 130-400 [facility] ([place]) Comment on above: Performed By: #### C BC, ADIFF, ANEU #### [place] [id number] #### BMP, GFR #### [address] [address] RBC (Bld) [#/Vol] 4.50 10 6/mcL Normal 4.20-5.40 [facility] ([place]) Comment on above: Performed By: #### C BC, ADIFF, ANEU #### [place] [address] [place], [place] [address] #### BMP, GFR #### [address] [address] WBC (Bld) [#/Vol] 8.80 10 3/mcL Normal 4.60-10.80 [facility] ([place]) Comment on above: Performed By: #### C BC, ADIFF, ANEU #### [address] [address] #### BMP, GFR #### [address] [address] [address] ABD/PELVIS W/ IV CONTRAST ONLYon 05-07-2019 [...] AM Sign Date: 05/07/2019 11:12:11 AM Normal [facility] ([place]) UAon 05-07-2019 Color (U) Yellow Normal [facility] ([place]) Comment on above: Performed By: #### C BC, ADIFF, ANEU #### [place] [address] #### TSH, CMP, GFR, VIDH #### [place] [address] Glucose (U) [Mass/Vol] Negative Normal Negative [facility] ([place]) Comment on above: Performed By: #### C BC, ADIFF, ANEU #### [place] [address] #### TSH, CMP, GFR, VIDH #### [place] [address] Ketones Ql (U) Negative Normal Negative [facility] ([place]) Comment on above: Performed By: #### C BC, ADIFF, ANEU #### [place] [address] #### TSH, CMP, GFR, VIDH #### [place] [address] UA Appear Clear Normal Clear [facility] ([place]) Comment on above: Performed By: #### C BC, ADIFF, ANEU #### [place] [address] #### TSH, CMP, GFR, VIDH #### [place] [address] UA Blood Trace Negative [facility] ([place]) Comment on above: Performed By: #### C BC, ADIFF, ANEU #### [place] [address] #### TSH, CMP, GFR, VIDH #### [place] [address] UA Leuk Est Trace Negative [facility] ([place]) Comment on above: Performed By: #### C BC, ADIFF, ANEU #### [place] [address] #### TSH, CMP, GFR, VIDH #### [place] [address] UA Nitrite Negative Normal Negative [facility] ([place]) Comment on above: Performed By: #### C BC, ADIFF, ANEU #### [place] [address] #### TSH, CMP, GFR, VIDH #### [place] [address] UA pH 5.5 Normal 5.0 - 8.0 [facility] ([place]) Comment on above: Performed By: #### C BC, ADIFF, ANEU #### [place] [address] #### TSH, CMP, GFR, VIDH #### [place] [address] UA Protein Negative Normal Negative [facility] ([place]) Comment on above: Performed By: #### C BC, ADIFF, ANEU #### [place] [address] #### TSH, CMP, GFR, VIDH #### [place] [address] UA Spec Grav <=1.005 1.015-1.025 [facility] ([place]) Comment on above: Performed By: #### C BC, ADIFF, ANEU #### [place] [address] #### TSH, CMP, GFR, VIDH #### [place] [address] UA Specimen Type Clean Catch Normal [facility] ([place]) Comment on above: Performed By: #### C BC, ADIFF, ANEU #### [place] [address] #### TSH, CMP, GFR, VIDH #### [place] [address] UA Urobilinogen 0.2 E.U./dL Normal 0.2-1.0 [facility] ([place]) Comment on above: Performed By: #### C BC, ADIFF, ANEU #### [place] [address] #### TSH, CMP, GFR, VIDH #### [place] [address] Urobilinogen Qn (U) Negative Normal Negative [facility] ([place]) Comment on above: Performed By: #### C BC, ADIFF, ANEU #### [place] [address] #### TSH, CMP, GFR, VIDH #### [place] [address] Op Noteon 05-04-2019 Op Note PATIENT: SARIKA AVILA ADMISSION DATE: 05/04/2019 SURGERY DATE: 05/04/2019 DATE OF : 1970 AGE: 48 ADMITTING PHYSICIAN: Godwin Huddleston MD ATTENDING PHYSICIAN: Godwin Huddleston MD DICTATING PHYSICIAN: Godwin Huddleston MD OPERATIVE RECORD Procedure: RECTOCELE REPAIR AND BILATERAL SACROSPINOUS LIGAMENT FIXATION. Preoperative Diagnosis: Symptomatic pelvic organ prolapse. Postoperative Diagnosis: Symptomatic pelvic organ prolapse. Anesthesia: General endotracheal. Movie Editor: None. Complications: None. Estimated Blood Loss: 50 [...] The mucosa was then closed using interrupted [id number] sutures of 2-0 Vicryl followed by a [...] counts were correct x2 according to nursing. [facility] Job ID: [id number] Godwin Huddleston MD DOD:05/04/2019 09:58 A MOISES/aydin DOT:05/04/2019 10:30 A Job Number: [id number] Document Number: [id number] cc: Godwin Huddleston MD [facility] [address] [place] [address] Normal [facility] Basic Metabolic Panelon 09-0 Anion gap [Moles/Vol] 9 Normal [facility] Comment on above: Performed By: #### B MP3, HEMOG #### [facility] [address] [place] [address] Calcium [Mass/Vol] 9.8 mg/dL Normal 8.4-10.4 [facility] Comment on above: Performed By: #### B MP3, HEMOG #### [facility] [address] [place] [address] CO2 [Moles/Vol] 29 mmol/L Normal 22-30 [facility] Comment on above: Performed By: #### B MP3, HEMOG #### [facility] [address] [place] [address] Glucose [Mass/Vol] 112 mg/dL High 70-100 [facility] Comment on above: Performed By: #### B MP3, HEMOG #### [facility] [address] [place] [address] Urea nitrogen [Mass/Vol] 11 mg/dL Normal 7-20 [facility] Comment on above: Performed By: #### B MP3, HEMOG #### [facility] [address] [place] [address] Creatinine [Mass/Vol] 1.08 mg/dL Normal 0.52-1.25 [facility] Comment on above: Performed By: #### B MP3, HEMOG #### [facility] [address] [place] [address] GFR/1.73 sq M predicted among blacks MDRD (S/P/Bld) [Vol rate/Area] mL/min/{1.73_m2} Normal >60 [facility] Comment on above: Performed By: #### B MP3, HEMOG #### [facility] [address] [place] [address] GFR/1.73 sq M predicted among non-blacks MDRD (S/P/Bld) [Vol rate/Area] 53.8 mL/min/{1.73_m2} Normal >60 [facility] Comment on above: Result Comment: Sour ce- MDRD equation with creatinine calibration to IDMS(NKDEP) eGFR not recommended for drug dose adjustment Performed By: #### B MP3, HEMOG #### [facility] [employer] [facility] [address] [place] [address] Potassium [Moles/Vol] 3.7 mmol/L Normal 3.5-5.1 [facility] Comment on above: Performed By: #### B MP3, HEMOG #### [facility] [address] [place] [address] Sodium [Moles/Vol] 142 mmol/L Normal 135-145 [facility] Comment on above: Performed By: #### B MP3, HEMOG #### [facility] [address] [place] [address] Chloride [Moles/Vol] 104 mmol/L Normal 98-107 [facility] Comment on above: Performed By: #### B MP3, HEMOG #### [facility] [employer] [facility] [address] [place] [address] Anion gap [Moles/Vol] 9 mmol/L [facility] [place] Calcium [Mass/Vol] 9.8 mg/dL 8.4 - 10. 4 mg/dL [place], [place] Chloride [Moles/Vol] 104 mmol/L 98 - 10 7 mmol/L [facility], [place] CO2 [Moles/Vol] 29 mmol/L 22 - 30 mmol/L [facility], [place] Creatinine [Mass/Vol] 1.08 mg/dL 0.52 - 1.25 mg/dL [place], [place] EGFR IF NonAfrican Algerian 53.8 mL/min >60 [place], [place] Comment on above: Source- MDRD equatio n with creatinine calibration to IDMS(NKDEP) eGFR not recommended for drug dose adjustment GFR/1.73 sq M predicted among blacks MDRD (S/P/Bld) [Vol rate/Area] mL/min/{1.73_m2} >60 mL/min [place], [place] Glucose [Mass/Vol] 112 mg/dL High 70 - 100 mg/dL [place] Interpretation and review of laboratory results Abnormal [place] Potassium [Moles/Vol] 3.7 mmol/L 3.5 - 5.1 mmol/L [place] Sodium [Moles/Vol] 142 mmol/L 135 - 145 mmol/L [place] Urea nitrogen [Mass/Vol] 11 mg/dL 7 - 20 mg/dL [place] Test Performed by [facility], [address] [place] [address] [place], [place] CBCon 04-29-2019 Erythrocyte distribution width (RBC) [Ratio] 13.5 % 11.5 - 14.5 % [place] Hematocrit (Bld) [Volume fraction] 41.7 % 35 - 47 % [place] Hemoglobin (Bld) [Mass/Vol] 14.4 g/dL 11.7 - 16 g/dL [place] Interpretation and review of laboratory results Abnormal [place] MCH (RBC) [Entitic mass] 32.6 pg 26 - 34 pg [place] MCHC (RBC) [Mass/Vol] 34.4 % 32 - 36 % [place] MCV (RBC) [Entitic vol] 94.6 fL 79 - 98 fL [place] Platelet mean volume (Bld) [Entitic vol] 7.2 fL Low 7.4 - 10.4 fL [place] Platelets (Bld) [#/Vol] 293 10*3/uL 140 - 440 10*3/uL [place] RBC (Bld) [#/Vol] 4.41 10*6/uL 3.8 - 5.2 10*6/uL [place] WBC (Bld) [#/Vol] 8.8 10*3/uL 3.6 - 10.7 10*3/uL [place] Test Performed by [facility], [facility] [place] [address] [place], [place] Hemogramon 04-29-2019 Erythrocyte distribution width (RBC) [Ratio] 13.5 % Normal 11.5-14.5 [facility] Comment on above: Performed By: #### B MP3, HEMOG #### [place] [address] [place], [place] Hematocrit (Bld) [Volume fraction] 41.7 % Normal 35.0-47.0 [facility] Comment on above: Performed By: #### B MP3, HEMOG #### [place] [address] [address] [place], [place] Hemoglobin (Bld) [Mass/Vol] 14.4 g/dL Normal 11.7-16.0 [facility] Comment on above: Performed By: #### B MP3, HEMOG #### [place] [address] [place], [place] MCH (RBC) [Entitic mass] 32.6 pg Normal 26.0-34.0 [facility] Comment on above: Performed By: #### B MP3, HEMOG #### [place] [address] [address] [place], [place] MCHC (RBC) [Mass/Vol] 34.4 % Normal 32.0-36.0 [facility] Comment on above: Performed By: #### B MP3, HEMOG #### [address] MCV (RBC) [Entitic vol] 94.6 fL Normal 79.0-98.0 [facility] Comment on above: Performed By: #### B MP3, HEMOG #### [place] [address] [address] [place], [place] Platelet mean volume (Bld) [Entitic vol] 7.2 fL Low 7.4-10.4 [facility] Comment on above: Performed By: #### B MP3, HEMOG #### [place] [address] [address] [place], [place] Platelets (Bld) [#/Vol] 293 10*3/uL Normal 140-440 [facility] Comment on above: Performed By: #### B MP3, HEMOG #### [place] [address] [place] [address] RBC (Bld) [#/Vol] 4.41 10*6/uL Normal 3.80-5.20 [facility] Comment on above: Performed By: #### B MP3, HEMOG #### [address] [address] WBC (Bld) [#/Vol] 8.8 10*3/uL Normal 3.6-10.7 [facility] Comment on above: Performed By: #### B MP3, HEMOG #### [address] [address] VIDHon 08-12-2018 Vit. D 25-Hydroxy 35 ng/mL Normal [facility] ([place]) Comment on above: Result Comment: Inte rpretive Values Based on Total 25(OH)D: Severe Deficiency <20 ng/mL Mild to Moderate Deficiency 20-30 ng/mL [facility] Levels 30-100 ng/mL Toxicity Possible >100 ng/mL Performed By: #### C AMADA CALVIN ANEU #### [place] [address] #### TSH, CMP, GFR, VIDH #### [place] [address] .Auto Diffon 08-11-2018 Ammonia (P) [Mass/Vol] 0.70 10 3/mcL Normal 0.15-1.00 [facility] ([place]) Comment on above: Performed By: #### AMADA PALACIOS ANEU #### [place] [address] #### TSH, CMP, GFR, VIDH #### [address] [address] Basophils (Bld) [#/Vol] 0.10 10 3/mcL Normal 0.00-0.19 [facility] ([place]) Comment on above: Performed By: #### AMADA PALACIOS ANEU #### [place] [address] #### TSH, CMP, GFR, VIDH #### [address] [address] Basophils/100 WBC (Bld) 0.7 % Normal 0.0-2.5 [facility] ([place]) Comment on above: Performed By: #### C BC, ADIFF, ANEU #### [address] [address] #### TSH, CMP, GFR, VIDH #### [address] [address] Eosinophils (Bld) [#/Vol] 0.10 10 3/mcL Normal 0.00-0.40 [facility] ([place]) Comment on above: Performed By: #### C BC, ADIFF, ANEU #### [address] [address] #### TSH, CMP, GFR, VIDH #### [address] [address] Eosinophils/100 WBC (Bld) 1.3 % Normal 0.0-7.0 [facility] ([place]) Comment on above: Performed By: #### C BC, ADIFF, ANEU #### [address] [address] #### TSH, CMP, GFR, VIDH #### [address] [address] Lymphocytes (Bld) [#/Vol] 3.30 10 3/mcL Normal 0.77-3.85 [facility] ([place]) Comment on above: Performed By: #### C BC, ADIFF, ANEU #### [place] [address] #### TSH, CMP, GFR, VIDH #### [address] [address] Lymphocytes/100 WBC (Bld) 31.8 % Normal 10.0-50.0 [facility] ([place]) Comment on above: Performed By: #### C BC, ADIFF, ANEU #### [address] [address] #### TSH, CMP, GFR, VIDH #### [address] [address] Monocytes/100 WBC (Bld) 6.7 % Normal 1.7-13.0 [facility] ([place]) Comment on above: Performed By: #### C BC, ADIFF, ANEU #### [address] [address] #### TSH, CMP, GFR, VIDH #### [address] [address] Neutrophils/100 WBC (Bld) 59.5 % Normal 37.0-80.0 [facility] ([place]) Comment on above: Performed By: #### C BC, ADIFF, ANEU #### [address] [address] #### TSH, CMP, GFR, VIDH #### [address] [address] .GFRon 08-11-2018 GFR Non- 54 ml/min/1.73sqm Normal [facility] ([place]) Comment on above: Result Comment: [...] By: #### C BC, ADIFF, ANEU #### [address] [address] #### TSH, CMP, GFR, VIDH #### [address] [address] GFR 66 ml/min/1.73sqm Normal [facility] ([place]) Comment on above: Result Comment: GFR Population [...] By: #### C BC, ADIFF, ANEU #### [place] [address] #### TSH, CMP, GFR, VIDH #### [address] [address] .NEUABSon 08-11-2018 Neutrophils (Bld) [#/Vol] 6.10 10 3/mcL Normal 2.85-6.16 [facility] ([place]) Comment on above: Performed By: #### C BCTANVIIFF, ANEU #### [place] [address] #### TSH, CMP, GFR, VIDH #### [address] [address] CBCon 08-11-2018 Erythrocyte distribution width (RBC) [Ratio] 13.5 % Normal 11.5-14.5 [facility] ([place]) Comment on above: Performed By: #### Nimesh BCAMADA, ANEU #### [place] [address] #### TSH, CMP, GFR, VIDH #### [place] [address] Hematocrit (Bld) [Volume fraction] 42.6 % Normal 37.0-47.0 [facility] ([place]) Comment on above: Performed By: #### Nimesh BC ADIFF, ANEU #### [place] [address] #### TSH, CMP, GFR, VIDH #### [place] [address] Hemoglobin (Bld) [Mass/Vol] 14.6 G/dL Normal 12.0-16.0 [facility] ([place]) Comment on above: Performed By: #### C NIKUNJ, TANVIIFF, ANEU #### [place] [address] #### TSH, CMP, GFR, VIDH #### [place] [address] MCH (RBC) [Entitic mass] 32.2 pg High 27.0-31.2 [facility] ([place]) Comment on above: Performed By: #### C AMADA CALVIN, ANEU #### [place] [address] #### TSH, CMP, GFR, VIDH #### [place] [address] MCHC (RBC) [Mass/Vol] 34.2 G/dL Normal 33.0-37.0 [facility] ([place]) Comment on above: Performed By: #### C NIKUNJ, TANVIIFF, ANEU #### [place] [address] #### TSH, CMP, GFR, VIDH #### [place] [address] MCV (RBC) [Entitic vol] 94.3 fL High 80.0-94.0 [facility] ([place]) Comment on above: Performed By: #### C NIKUNJ, AMADA, ANEU #### [place] [address] #### TSH, CMP, GFR, VIDH #### [place] [address] Platelet mean volume (Bld) [Entitic vol] 7.6 fL Normal 7.4-10.4 [facility] ([place]) Comment on above: Performed By: #### C NIKUNJ, ADIFF, ANEU #### [place] [address] #### TSH, CMP, GFR, VIDH #### [address] [address] Platelets (Bld) [#/Vol] 323 10 3/mcL Normal 130-400 [facility] ([place]) Comment on above: Performed By: #### C BC, ADIFF, ANEU #### [address] [address] #### TSH, CMP, GFR, VIDH #### [address] [address] RBC (Bld) [#/Vol] 4.52 10 6/mcL Normal 4.20-5.40 [facility] ([place]) Comment on above: Performed By: #### C BC, ADIFF, ANEU #### [address] [address] #### TSH, CMP, GFR, VIDH #### [address] [address] WBC (Bld) [#/Vol] 10.20 10 3/mcL Normal 4.60-10.80 [facility] ([place]) Comment on above: Performed By: #### C BC, ADIFF, ANEU #### [place] [address] #### TSH, CMP, GFR, VIDH #### [address] [address] CMPon 08-11-2018 Albumin [Mass/Vol] 4.0 G/dL Normal 3.5-5.0 [facility] ([place]) Comment on above: Performed By: #### C BC, ADIFF, ANEU #### [address] [address] #### TSH, CMP, GFR, VIDH #### [address] [address] Albumin/Globulin [Mass ratio] 1.3 {ratio} Normal 1.1-2.5 [facility] ([place]) Comment on above: Performed By: #### C BC, ADIFF, ANEU #### [place] [address] #### TSH, CMP, GFR, VIDH #### [address] [address] ALP [Catalytic activity/Vol] 87 U/L Normal 40-135 [facility] ([place]) Comment on above: Performed By: #### C BC, ADIFF, ANEU #### [address] [address] #### TSH, CMP, GFR, VIDH #### [address] [address] ALT [Catalytic activity/Vol] 17 U/L Normal 10-35 [facility] ([place]) Comment on above: Performed By: #### C BC, ADIFF, ANEU #### [place] [address] #### TSH, CMP, GFR, VIDH #### [address] [address] AST [Catalytic activity/Vol] 12 U/L Normal 10-40 [facility] ([place]) Comment on above: Performed By: #### C BC, ADIFF, ANEU #### [place] [address] #### TSH, CMP, GFR, VIDH #### [address] [address] Bili Total 0.2 mg/dL Normal 0.2-1.0 [facility] ([place]) Comment on above: Performed By: #### C BC, ADIFF, ANEU #### [place] [address] #### TSH, CMP, GFR, VIDH #### [address] [address] Calcium [Mass/Vol] 9.3 mg/dL Normal 8.4-10.2 [facility] ([place]) Comment on above: Performed By: #### C BC, ADIFF, ANEU #### [place] [address] #### TSH, CMP, GFR, VIDH #### [address] [address] Chloride [Moles/Vol] 105 mmol/L Normal 98-107 [facility] ([place]) Comment on above: Performed By: #### C BC ADIFF, ANEU #### [address] [address] #### TSH, CMP, GFR, VIDH #### [address] [address] CO2 [Moles/Vol] 31 mmol/L High 22-29 [facility] ([place]) Comment on above: Performed By: #### C BC, ADIFF, ANEU #### [address] [address] #### TSH, CMP, GFR, VIDH #### [address] [address] Creatinine [Mass/Vol] 1.07 mg/dL High 0.55-1.02 [facility] ([place]) Comment on above: Performed By: #### C TANVI CALVINIFF, ANEU #### [address] [address] #### TSH, CMP, GFR, VIDH #### [address] [address] Electrolyte Balance 6.0 mEq/L Normal [facility] ([place]) Comment on above: Performed By: #### C BC ADIFF, ANEU #### [address] [address] #### TSH, CMP, GFR, VIDH #### [address] [address] Globulin (S) [Mass/Vol] 3.0 G/dL Normal [facility] ([place]) Comment on above: Performed By: #### C BC, ADIFF, ANEU #### [address] [address] #### TSH, CMP, GFR, VIDH #### [address] [address] Glucose [Mass/Vol] 83 mg/dL Normal 70-105 [facility] ([place]) Comment on above: Performed By: #### C BC, ADIFF, ANEU #### [address] [address] #### TSH, CMP, GFR, VIDH #### [address] [address] Potassium [Moles/Vol] 4.1 mmol/L Normal 3.5-5.1 [facility] ([place]) Comment on above: Performed By: #### C BC, ADIFF, ANEU #### [address] [address] #### TSH, CMP, GFR, VIDH #### [address] [address] Protein [Mass/Vol] 7.0 G/dL Normal 6.4-8.2 [facility] ([place]) Comment on above: Performed By: #### C BC, ADIFF, ANEU #### [address] [address] #### TSH, CMP, GFR, VIDH #### [address] [address] Sodium [Moles/Vol] 142 mmol/L Normal 136-145 [facility] ([place]) Comment on above: Performed By: #### C BC, ADIFF, ANEU #### [address] [address] #### TSH, CMP, GFR, VIDH #### [address] [address] Urea nitrogen [Mass/Vol] 10 mg/dL Normal 7-18 [facility] ([place]) Comment on above: Performed By: #### C BC, ADIFF, ANEU #### [address] [address] #### TSH, CMP, GFR, VIDH #### [address] [address] Urea nitrogen/Creatinine [Mass ratio] 9 ratio Normal 7-27 [facility] ([place]) Comment on above: Performed By: #### C BC, ADIFF, ANEU #### [address] [address] #### TSH, CMP, GFR, VIDH #### [address] [address] TSHon 08-11-2018 TSH Qn 0.82 mcIU/mL Normal 0.36-3.74 [facility] ([place]) Comment on above: Performed By: #### C BC, ADIFF, ANEU #### [address] [address] #### TSH, CMP, GFR, VIDH #### [address] [address] Vital Signs Date Time Vital Sign Value Performing Clinician [place] pablo 05-25-2025 07:38-0400 Body height 160 cm Maria E Knight HOUSING OFFICER - RETURN TO SERVICE INSPECTOR Work Phone: [facility] [employer] 05-25-2025 07:38-0400 Body mass index (BMI) [Ratio] 40.03 kg/m2 Maria E Knight HOUSING OFFICER - RETURN TO SERVICE INSPECTOR Work Phone: [facility] [employer] 05-25-2025 07:38-0400 Body weight 102.51 kg Maria E Knight HOUSING OFFICER - RETURN TO SERVICE INSPECTOR Work Phone: [facility] [employer] 05-25-2025 07:38-0400 Diastolic blood pressure 68 mm[Hg] Maria E Knight HOUSING OFFICER - RETURN TO SERVICE INSPECTOR Work Phone: [facility] [employer] 05-25-2025 07:38-0400 Heart rate 67 /min Maria E Knight HOUSING OFFICER - RETURN TO SERVICE INSPECTOR Work Phone: [facility] [employer] 05-25-2025 07:38-0400 Systolic blood pressure 122 mm[Hg] Maria E Knight HOUSING OFFICER - RETURN TO SERVICE INSPECTOR Work Phone: [facility] [employer] 02-18-2025 08:40-0400 Diastolic blood pressure 77 mm[Hg] Luisito Donovan MD Work Phone: [facility] [employer] 02-18-2025 08:40-0400 Heart rate 75 /min Luisito Donovan MD Work Phone: [facility] [employer] 02-18-2025 08:40-0400 Systolic blood pressure 134 mm[Hg] Luisito Donovan MD Work Phone: [facility] [employer] 11-19-2024 08:16-0400 Body height 160 cm Luisito Donovan MD Work Phone: [facility] [employer] 11-19-2024 08:16-0400 Body mass index (BMI) [Ratio] 40.03 kg/m2 Luisito Donovan MD Work Phone: [facility] [employer] 11-19-2024 08:16-0400 Body weight 102.51 kg Luisito Donovan MD Work Phone: [facility] [employer] 11-19-2024 08:16-0400 Diastolic blood pressure 68 mm[Hg] Luisito Donovan MD Work Phone: [facility] [employer] 11-19-2024 08:16-0400 Systolic blood pressure 118 mm[Hg] Luisito Donovan MD Work Phone: [facility] [employer] 08-20-2024 08:38-0500 Body height 160 cm Luisito Donovan MD Work Phone: [facility] [employer] 08-20-2024 08:38-0500 Body mass index (BMI) [Ratio] 40.03 kg/m2 Luisito Donovan MD Work Phone: [facility] [employer] 08-20-2024 08:38-0500 Body weight 102.51 kg Luisito Donovan MD Work Phone: [facility] [employer] 08-20-2024 08:38-0500 Diastolic blood pressure 76 mm[Hg] Luisito Donovan MD Work Phone: [facility] [employer] 08-20-2024 08:38-0500 Heart rate 52 /min Luisito Donovan MD Work Phone: [facility] [employer] 08-20-2024 08:38-0500 Systolic blood pressure 144 mm[Hg] Luisito Donovan MD Work Phone: [facility] [employer] 05-21-2024 08:20-0400 Body height 160 cm Luisito Donovan MD Work Phone: [facility] 05-21-2024 08:20-0400 Body mass index (BMI) [Ratio] 40.03 kg/m2 Luisito Donovan MD Work Phone: [facility] 05-21-2024 08:20-0400 Body weight 102.51 kg Luisito Donovan MD Work Phone: [facility] 05-21-2024 08:20-0400 Diastolic blood pressure 80 mm[Hg] Luisito Donovan MD Work Phone: [facility] 05-21-2024 08:20-0400 Systolic blood pressure 136 mm[Hg] Luisito Donovan MD Work Phone: [facility] 04-01-2024 07:59-0400 Body height 160 cm Gege Jamison MD Work Phone: [facility] 04-01-2024 07:59-0400 Body mass index (BMI) [Ratio] 40.57 kg/m2 Gege Jamison MD Work Phone: [facility] 04-01-2024 07:59-0400 Body weight 103.87 kg Gege Jamison MD Work Phone: [facility] 04-01-2024 07:59-0400 Diastolic blood pressure 68 mm[Hg] Gege Jamison MD Work Phone: [facility] 04-01-2024 07:59-0400 Systolic blood pressure 110 mm[Hg] Gege Jamison MD Work Phone: [facility] 02-20-2024 07:47-0400 Body temperature 97.7 [degF] Luisito Donovan MD Work Phone: [facility] 02-20-2024 07:47-0400 Diastolic blood pressure 69 mm[Hg] Luisito Donovan MD Work Phone: [facility] 02-20-2024 07:47-0400 Heart rate 53 /min Luisito Donovan MD Work Phone: [facility] 02-20-2024 07:47-0400 Systolic blood pressure 127 mm[Hg] Luisito Donovan MD Work Phone: [facility] 02-11-2024 14:34-0400 Body height 160 cm Caio Cortes MD Work Phone: [facility] 02-11-2024 14:34-0400 Body mass index (BMI) [Ratio] 40.57 kg/m2 Caio Cortes MD Work Phone: [facility] 02-11-2024 14:34-0400 Body weight 103.87 kg Caio Cortes MD Work Phone: [facility] 02-11-2024 14:34-0400 Diastolic blood pressure 80 mm[Hg] Caio Cortes MD Work Phone: [facility] 02-11-2024 14:34-0400 Heart rate 76 /min Caio Cortes MD Work Phone: [facility] 02-11-2024 14:34-0400 SaO2% (BldA) [Mass fraction] 97 % Caio Cortes MD Work Phone: [facility] 02-11-2024 14:34-0400 Systolic blood pressure 121 mm[Hg] Caio Cortes MD Work Phone: [facility] 11-21-2023 09:12-0400 Body height 160 cm Caio Cortes MD Work Phone: [facility] 11-21-2023 09:12-0400 Body weight 103.87 kg Caio Cortes MD Work Phone: [facility] 11-21-2023 09:12-0400 Diastolic blood pressure 64 mm[Hg] Caio Cortes MD Work Phone[facility] [facility] 11-21-2023 09:12-0400 Heart rate 54 /min Caio Cortes MD Work Phone: [facility] 11-21-2023 09:12-0400 Systolic blood pressure 130 mm[Hg] Caio Cortes MD Work Phone: [facility] 11-21-2023 07:29-0400 Body temperature 97.3 [degF] Luisito Donovan MD Work Phone: [facility] 11-21-2023 07:29-0400 Diastolic blood pressure 66 mm[Hg] Luisito Donovan MD Work Phone: [facility] 11-21-2023 07:29-0400 Heart rate 57 /min Luisito Donovan MD Work Phone: [facility] 11-21-2023 07:29-0400 Systolic blood pressure 122 mm[Hg] Luisito Donovan MD Work Phone: [facility] 10-08-2023 10:18-0500 Body height 160 cm Aura Maxwell MD Work Phone: [facility] 10-08-2023 10:18-0500 Body weight 102.8 kg Aura Maxwell MD Work Phone: [facility] 10-08-2023 10:18-0500 Diastolic blood pressure 74 mm[Hg] Aura Maxwell MD Work Phone: [facility] 10-08-2023 10:18-0500 Heart rate 59 /min Aura Maxwell MD Work Phone: [facility] 10-08-2023 10:18-0500 Respiratory rate 16 /min Aura Maxwell MD Work Phone: [facility] 10-08-2023 10:18-0500 SaO2% (BldA) [Mass fraction] 96 % Aura Maxwell MD Work Phone: [facility] 10-08-2023 10:18-0500 Systolic blood pressure 146 mm[Hg] Aura Maxwell MD Work Phone: [facility] 08-21-2023 07:38-0500 Body height 160 cm Maria E Joseph CNP Work Phone: [facility] 08-21-2023 07:38-0500 Body mass index (BMI) [Ratio] 40.03 kg/m2 Maria E Knight APRN - RETURN TO SERVICE INSPECTOR Work Phone: [facility] [employer] 08-21-2023 07:38-0500 Body temperature 98.1 [degF] Maria E Knight HOUSING OFFICER - RETURN TO SERVICE INSPECTOR Work Phone: [facility] [employer] 08-21-2023 07:38-0500 Body weight 102.51 kg Maria E Knight HOUSING OFFICER - RETURN TO SERVICE INSPECTOR Work Phone: [facility] [employer] 08-21-2023 07:38-0500 Diastolic blood pressure 62 mm[Hg] Maria E Knight HOUSING OFFICER - RETURN TO SERVICE INSPECTOR Work Phone: [facility] [employer] 08-21-2023 07:38-0500 Heart rate 81 /min Maria E Knight HOUSING OFFICER - RETURN TO SERVICE INSPECTOR Work Phone: [facility] [employer] 08-21-2023 07:38-0500 Systolic blood pressure 115 mm[Hg] Maria E Knight HOUSING OFFICER - RETURN TO SERVICE INSPECTOR Work Phone: [facility] [employer] 05-21-2023 08:27-0400 Body temperature 97.59 [degF] Luisito Donovan MD Work Phone: [facility] [employer] 05-21-2023 08:27-0400 Diastolic blood pressure 73 mm[Hg] Luisito Donovan MD Work Phone: [facility] [employer] 05-21-2023 08:27-0400 Heart rate 50 /min Luisito Donovan MD Work Phone: [facility] 05-21-2023 08:27-0400 Systolic blood pressure 146 mm[Hg] Luisito Donovan MD Work Phone: [facility] [employer] 02-18-2023 09:42-0400 Body temperature 97.7 [degF] Luisito Donovan MD Work Phone: [facility] [employer] 02-18-2023 09:42-0400 Diastolic blood pressure 79 mm[Hg] Luisito Donovan MD Work Phone: [facility] [employer] 02-18-2023 09:42-0400 Heart rate 50 /min Luisito Donovan MD Work Phone: [facility] 02-18-2023 09:42-0400 Systolic blood pressure 140 mm[Hg] Luisito Donovan MD Work Phone: [facility] 01-27-2023 13:34-0400 Body mass index (BMI) [Ratio] 40.03 kg/m2 Luisito Donovan MD Work Phone: [facility] 01-27-2023 13:34-0400 Body temperature 98.6 [degF] Luisito Donovan MD Work Phone: [facility] 01-27-2023 13:34-0400 Body weight 102.51 kg Luisito Donovan MD Work Phone: [facility] 01-27-2023 13:34-0400 Diastolic blood pressure 75 mm[Hg] Luisito Donovan MD Work Phone: [facility] 01-27-2023 13:34-0400 Heart rate 54 /min Luisito Donovan MD Work Phone: [facility] 01-27-2023 13:34-0400 Systolic blood pressure 131 mm[Hg] Luisito Donovan MD Work Phone: [facility] 07-22-2022 09:03-0500 Body temperature 98 [degF] Dr. Dina Wu Work Phone: [facility] Work Phone: 07-22-2022 09:03-0500 Body weight 102.[address] Dina Wu Work Phone: [facility] Work Phone: 07-22-2022 09:03-0500 Diastolic blood pressure 98 mm[Hg] Dr. Dina Wu Work Phone: [facility] Work Phone: 07-22-2022 09:03-0500 Heart rate 101 /min Dr. Dina Wu Work Phone: [facility] Work Phone: 07-22-2022 09:03-0500 Respiratory rate 18 /min Dr. Dina Wu Work Phone: [facility] Work Phone: 07-22-2022 09:03-0500 SaO2% (BldA) [Mass fraction] 97 % Dr. Dina Wu Work Phone: [facility] Work Phone: 07-22-2022 09:03-0500 Systolic blood pressure 156 mm[Hg] Dr. Dina Wu Work Phone: [facility] Work Phone: 06-11-2022 08:36-0400 Body height 156.[address] Dina Wu Work Phone: [facility] Work Phone: 06-11-2022 08:36-0400 Body mass index (BMI) [Ratio] 42.3 kg/m2 Dr. Dina Wu Work Phone: [facility] Work Phone: 06-11-2022 08:36-0400 Body temperature 97.7 [degF] Dr. Dina Wu Work Phone: [facility] Work Phone: 06-11-2022 08:36-0400 Body weight 103.[address] Dina Wu Work Phone: [facility] Work Phone: 06-11-2022 08:36-0400 Diastolic blood pressure 84 mm[Hg] Dr. Dina Wu Work Phone: [facility] Work Phone: 06-11-2022 08:36-0400 Heart rate 50 /min Dr. Dina Wu Work Phone: [facility] Work Phone: 06-11-2022 08:36-0400 Respiratory rate 16 /min Dr. Dina Wu Work Phone: [facility] Work Phone: 06-11-2022 08:36-0400 SaO2% (BldA) [Mass fraction] 99 % Dr. Dina Wu Work Phone: [facility] Work Phone: 06-11-2022 08:36-0400 Systolic blood pressure 140 mm[Hg] Dr. Dina Wu Work Phone: [facility] Work Phone: 05-08-2022 13:19-0400 Body height 156.[address] Dina Wu Work Phone: [facility] Work Phone: 05-08-2022 13:19-0400 Body mass index (BMI) [Ratio] 42.7 kg/m2 Dr. Dina Wu Work Phone: [facility] Work Phone: 05-08-2022 13:19-0400 Body temperature 97.9 [degF] Dr. Dina Wu Work Phone: [facility] Work Phone: 05-08-2022 13:19-0400 Body weight 104.[address] Dina Wu Work Phone: [facility] Work Phone: 05-08-2022 13:19-0400 Diastolic blood pressure 82 mm[Hg] Dr. Dina Wu Work Phone: [facility] Work Phone: 05-08-2022 13:19-0400 Heart rate 58 /min Dr. Dina Wu Work Phone: [facility] Work Phone: 05-08-2022 13:19-0400 Respiratory rate 14 /min Dr. Dina Wu Work Phone: [facility] Work Phone: 05-08-2022 13:19-0400 SaO2% (BldA) [Mass fraction] 97 % Dr. Dina Wu Work Phone: [facility] Work Phone: 05-08-2022 13:19-0400 Systolic blood pressure 144 mm[Hg] Dr. Dina Wu Work Phone: [facility] Work Phone: 04-17-2022 10:35-0400 Body mass index (BMI) [Ratio] 42.8 kg/m2 Dr. Dina Wu Work Phone: [facility] Work Phone: 04-17-2022 10:35-0400 Body temperature 97.8 [degF] Dr. Dina Wu Work Phone: [facility] Work Phone: 04-17-2022 10:35-0400 Body weight 104.[address] Dina Wu Work Phone: [facility] Work Phone: 04-17-2022 10:35-0400 Diastolic blood pressure 84 mm[Hg] Dr. Dina Wu Work Phone: [facility] Work Phone: 04-17-2022 10:35-0400 Heart rate 51 /min Dr. Dina Wu Work Phone: [facility] Work Phone: 04-17-2022 10:35-0400 Respiratory rate 18 /min Dr. Dina Wu Work Phone: [facility] Work Phone: 04-17-2022 10:35-0400 SaO2% (BldA) [Mass fraction] 98 % Dr. Dina Wu Work Phone: [facility] Work Phone: 04-17-2022 10:35-0400 Systolic blood pressure 150 mm[Hg] Dr. Dina Wu Work Phone: [facility] Work Phone: 07-27-2021 07:25-0500 Body height 156.[address] Dina Wu Work Phone: [facility] Work Phone: 07-27-2021 07:25-0500 Body mass index (BMI) [Ratio] 39.9 kg/m2 Dr. Dina Wu Work Phone: [facility] Work Phone: 07-27-2021 07:25-0500 Body temperature 97.5 [degF] Dr. Dina Wu Work Phone: [facility] Work Phone: 07-27-2021 07:25-0500 Body weight 97.[address] Dina Wu Work Phone: [facility] Work Phone: 07-27-2021 07:25-0500 Diastolic blood pressure 70 mm[Hg] Dr. Dina Wu Work Phone: [facility] Work Phone: 07-27-2021 07:25-0500 Heart rate 66 /min Dr. Dina Wu Work Phone: [facility] Work Phone: 07-27-2021 07:25-0500 Respiratory rate 18 /min Dr. Dina Wu Work Phone: [facility] Work Phone: 07-27-2021 07:25-0500 SaO2% (BldA) [Mass fraction] 99 % Dr. Dina Wu Work Phone: [facility] Work Phone: 07-27-2021 07:25-0500 Systolic blood pressure 126 mm[Hg] Dr. Dina Wu Work Phone: [facility] Work Phone: 04-29-2019 15:21-0400 BMI (Body Mass Index) 38.79 kg/m2 [facility], [place] 04-29-2019 15:21-0400 Body Temperature 97.81 [degF] [place], [place] 04-29-2019 15:21-0400 Body weight 99.34 kg [place], [place] 04-29-2019 15:21-0400 BP Diastolic 69 mm[Hg] [facility], [place] 04-29-2019 15:21-0400 BP Systolic 122 mm[Hg] [facility], [place] 04-29-2019 15:21-0400 Height 160 cm [place], [place] 04-29-2019 15:21-0400 Pulse (Heart Rate) 50 /min [place], [place] 04-29-2019 15:21-0400 Pulse Oximetry 97 % [place], [place] Encounters Encounter Date Encounter Type Care Provider Facility Start: 07-05-2025 End: 07-05-2025 ambulatory [facility] Start: 05-25-2025 End: 05[facility]25[facility]: 05-25-2025 End: 05-25-2025 Patient encounter procedure Maria E Manriquesey HOUSING OFFICER - RETURN TO SERVICE INSPECTOR Work Phone: [facility] Comment on above: Spastic diplegia (HC C) (Primary Dx); Multiple sclerosis Start: 05-16-2025 End: 05-16-2025 ambulatory [facility] Start: 05-10-2025 End: 05-10-2025 ambulatory Radha Galvez Facility:[facility] Start: 04-19-2025 End: 04-19-2025 ambulatory [facility] Start: 04-01-2025 End: 04-01-2025 ambulatory [facility] Start: 03-28-2025 End: 03-28-2025 ambulatory Luz Parsons APRNSusyRETURN TO SERVICE INSPECTOR Work Phone: Urogynecology Comment on above: Urge incontinence (P rimary Dx); OAB (overactive bladder); Medication management Start: 03-28-2025 End: 03-28-2025 Telemedicine consultation with patient Luz Parsons APRN.RETURN TO SERVICE INSPECTOR Work Phone: Uro[facility]cology Start: 03-19-2025 End: 03-21-2025 Refill Luz Parsons APRN.RETURN TO SERVICE INSPECTOR Work Phone: [facility]Gy[facility]cology Comment on above: Refill Request Start: 03-11-2025 End: 03-12-2025 ambulatory [facility] Start: 03-10-2025 End: 03-10-2025 ambulatory [facility] Start: 02-18-2025 End: 02-18-2025 ambulatory LUISITO DONOVAN [facility] Start: 02-18-2025 End: 02-18-2025 Patient encounter procedure Luisito Donovan MD Work Phone: [facility] Comment on above: Acquired spastic dip legia of lower extremities (HCC) (Primary Dx); MS (multiple sclerosis) (HCC) Start: 02-09-2025 End: 02-09-2025 ambulatory [facility] Start: 12-09-2024 End: 12-09-2024 ambulatory [facility] Start: 12-03-2024 End: 12-03-2024 ambulatory [facility] Start: 11-19-2024 End: 11-19-2024 ambulatory [facility] Start: 11-19-2024 End: 11-19-2024 Patient encounter procedure Luisito Donovan MD Work Phone: [facility] Comment on above: Spastic diplegia (CM S/HCC) (HCC) (Primary Dx) Start: 10-12-2024 End: 10-12-2024 ambulatory RICHARD DAVIS Facility:[facility] Start: 10-07-2024 End: 10-07-2024 ambulatory [facility] Start: 10-06-2024 End: 10-06-2024 ambulatory Gege Jamison MD Work Phone: URO/Gynecology Comment on above: Do i need appt today ? Start: 09-20-2024 End: 09-20-2024 ambulatory Radha Galvez Facility:[facility] Start: 09-16-2024 End: 09-16-2024 Telephone encounter Gege Jamison MD Work Phone: [facility] Comment on above: Care Coordination (B otox) Start: 08-26-2024 End: 08-26-2024 ambulatory [facility] Start: 08-20-2024 End: 08-20-2024 ambulatory [facility] Start: 08-20-2024 End: 08-20-2024 Patient encounter procedure Luisito Donovan MD Work Phone: [facility] Comment on above: Spastic diplegia (CM S/HCC) (HCC) (Primary Dx) Start: 08-04-2024 End: 08-04-2024 ambulatory ANNITA ESCOBEDO Facility:[facility] Start: 08-03-2024 End: 08-04-2024 Telephone encounter Gege Jamison MD Work Phone: [facility]Gy[facility]cology Start: 07-19-2024 End: 07-19-2024 ambulatory [facility] Start: 07-16-2024 End: 07-16-2024 ambulatory [facility] Facility:[facility] Start: 07-07-2024 End: 07-07-2024 ambulatory [facility] Facility:[facility] Start: 07-07-2024 End: 07-07-2024 ambulatory [facility] Start: 05-21-2024 End: 05-21-2024 Patient encounter procedure Luisito Donovan MD Work Phone: [facility] Comment on above: Spastic diplegia (CM S/HCC) (HCC) (Primary Dx) Start: 05-13-2024 End: 05-13-2024 Telephone encounter Gege Jamison MD Work Phone: [facility] Start: 04-01-2024 End: 04-01-2024 Patient encounter procedure Gege Jamison MD Work Phone: [facility] Comment on above: Urge incontinence (P rimary Dx); Neurogenic dysfunction of the urinary bladder; OAB (overactive bladder) Start: 03-19-2024 Refill Luz OSHEA RN.RETURN TO SERVICE INSPECTOR Work Phone: [facility]Gy[facility]cology Comment on above: Refill Request Start: 03-14-2024 End: 03-14-2024 Subsequent hospital visit by physician Mri 4 Radio Main Q (I-Stat/1.5t/3t) Work Phone: [facility] Comment on above: Multiple sclerosis ( HCC) [G35] Start: 02-23-2024 End: 02-23-2024 Telephone encounter Luisito Donovan MD Work Phone: [facility] Comment on above: Med Management (Boto x PA) Start: 02-20-2024 End: 02-20-2024 Patient encounter procedure Luisito Donovan MD Work Phone: [facility] Comment on above: Spastic diplegia (CM S/HCC) (HCC) (Primary Dx) Start: 02-11-2024 End: 02-11-2024 Patient encounter procedure Caio Cortes MD Work Phone: [facility] Comment on above: Multiple sclerosis ( HCC) (Primary Dx) Start: 01-21-2024 Get Medical Advice Caio Cortes MD Work Phone: [facility] Comment on above: I need a Physical Th erapy Order I need a Physical Th erapy Order here is FAX # Start: 01-08-2024 End: 01-08-2024 ambulatory Maria De Jesus Cleaning APRN.RETURN TO SERVICE INSPECTOR Work Phone: Urogynecology Comment on above: OAB (overactive blad libia) (Primary Dx); Neurogenic dysfunction of the urinary bladder; MS (multiple sclerosis) (HCC) Start: 01-08-2024 End: 01-08-2024 Telemedicine consultation with patient Maria De Jesus L Black HOUSING OFFICER.RETURN TO SERVICE INSPECTOR Work Phone: Urogynecology Start: 01-08-2024 Telephone encounter Gege farfan MD Work Phone: [facility]Gy[facility]cology Comment on above: Care Coordination (B otox) Start: 12-31-2023 Telephone encounter Gege farfan MD Work Phone: [facility]Gy[facility]cology Comment on above: Patient Question Start: 12-17-2023 ambulatory aCio Maguire Work Phone: [facility] Comment on above: EEG Results are back Start: 11-25-2023 ambulatory Caio Maguire Work Phone: [facility] Comment on above: Kidney Ultrsound Start: 11-21-2023 End: 11-21-2023 Patient encounter procedure Caio Cortes MD Work Phone: [facility] Comment on above: Episode of loss of c onsciousness (Primary Dx); Multiple sclerosis (HCC) [G35] Start: 11-21-2023 End: 11-21-2023 Patient encounter procedure Luisito Donovan MD Work Phone: [facility] Comment on above: MS (multiple scleros is) (HCC) (Primary Dx) Start: 10-30-2023 Telephone encounter Gege farfan MD Work Phone: [facility]Gynecology Start: 10-27-2023 Refill Maria De Jesus OSHEA RN.RETURN TO SERVICE INSPECTOR Work Phone: [facility] Comment on above: Med Change Request Start: 10-24-2023 Refill Gege Maguire Work Phone: [facility] Start: 10-23-2023 Telephone encounter Gege farfan MD Work Phone: [facility] Start: 10-08-2023 End: 10-08-2023 Orders Only Aura Dennison MD Work Phone: [facility] Comment on above: Radiculopathy, cervi yani region (Primary Dx) Spinal stenosis of c ervical region (Primary Dx) Cervical disc disord er with radiculopathy [M50.10] Start: 08-21-2023 End: 08-21-2023 Patient encounter procedure Maria E Knight HOUSING OFFICER - RETURN TO SERVICE INSPECTOR Work Phone: [facility] Comment on above: Spastic diplegia (CM S/HCC) (HCC) (Primary Dx); Multiple sclerosis (HCC) Start: 05-21-2023 End: 05-21-2023 Patient encounter procedure Luisito Donovan MD Work Phone: [facility] Comment on above: Spastic diplegia (CM S/HCC) (HCC) (Primary Dx) Start: 03-19-2023 End: 08-16-2023 ambulatory [facility] Facility:[facility] Start: 03-02-2023 Encounter for preprocedural cardiovascular examination DR CIRO ALEX MD [facility] Start: 03-02-2023 Encounter for preprocedural laboratory examination DR CIRO ALEX MD [facility] Start: 02-24-2023 End: 02-24-2023 ambulatory [facility] Facility:[facility] Start: 02-18-2023 Refill Bob valverde PharmD [facility] [place] Start: 02-18-2023 End: 02-18-2023 Patient encounter procedure Luisito Donovan MD Work Phone: [facility] Comment on above: Spasticity (Primary Dx) Start: 01-27-2023 End: 01-27-2023 Office outpatient new 45 minutes Luisito Donovan MD Work Phone: [facility] Comment on above: Spastic diplegia (CM S/HCC) (HCC) (Primary Dx); Multiple sclerosis (HCC) Start: 01-09-2023 End: 01-10-2023 ambulatory DINA WU Facility:[facility] Start: 07-22-2022 End: 07-22-[address] Dina Wu Work Phone: [facility] Start: 07-11-2022 End: 07-24-[address] Dina Wu Work Phone: [facility] Work Phone: Start: 07-11-2022 End: 07-24-[address] Dina Wu Work Phone: [facility] [place] Start: 06-11-2022 End: 06-24-[address] Dina Wu Work Phone: [facility] Work Phone: Start: 06-11-2022 End: 06-24-[address] [facility] [place] Start: 06-11-2022 End: 06-11-[address] Dina Wu Work Phone: [facility] Start: 05-10-2022 End: 05-10-[address] Dina Wu Work Phone: [facility] Work Phone: Start: 05-10-2022 End: 05-10-[address] Dina Wu Work Phone: [facility] Start: 05-08-2022 End: 05-08-[address] Dina Wu Work Phone: [facility] Start: 05-01-2022 End: 05-24-[address] Dina Wu Work Phone: [facility] Work Phone: Start: 05-01-2022 End: 05-24-[address] D[facility] Start: 05-01-[address] Mariana Wu [facility] Start: 04-17-2022 End: 04-17-[address] Dina Wu Work Phone: [facility] Start: 03-30-2022 End: 03-30-[address] [facility] Start: 02-22-2022 End: 02-22-[address] [facility] Start: 02-22-2022 End: 02-22-[address] Dina Wu Work Phone: [facility] Start: 02-08-2022 Non-patient / Non-visit Dr. Karyna Wu Work Phone: [facility] Start: 02-07-2022 End: 02-07-[address] Dina Wu Work Phone: [facility], [facility] Start: 01-24-2022 End: 01-24-[address] Dina Wu [facility] Start: 12-26-2021 End: 01-22-[address] Start: 11-28-2021 End: 12-22-[address] Dina Wu [facility] Start: 10-26-2021 End: 10-26-[address] Dina Wu [facility] Start: 10-25-2021 End: 11-22-[address] Dina Wu [facility] Start: 10-01-2021 End: 10-01-[address] Dina Wu Work Phone: [facility] Start: 09-13-2021 End: 09-13-[address] [facility] Wu [facility] Start: 09-05-2021 End: 09-24-[address] Dina Wu [facility] Start: 07-27-2021 End: 08-24-[address] Dina Wu [facility] Start: 07-27-2021 End: 07-27-[address] Dina Wu Work Phone: [facility] Start: 04-29-2019 End: 04-29-2019 Subsequent hospital visit by physician Godwin Huddleston Work Phone: [facility] Pre-Admit Testing Comment on above: Arrived Procedures [...] for Adults (1 - 1-dose 75+ series) [facility] Start: 2034 Pneumococcal Vaccine : Pediatrics (0 to 5 Years) and At-Risk Patients (6 to 64 Years) (3 of 3 - PPSV23 or PCV20) Pneumococcal Vaccine: Pediatrics (0 to 5 Years) and At-Risk Patients (6 to 64 Years) (3 of 3 - PPSV23 or PCV20) [facility] Start: 2029 RSV Immunization age d 60 or older (1 - 1-dose 60+ series) RSV Immunization aged 60 or older (1 - 1-dose 60+ series) [facility] Start: 11-23-2025 Depression Monitoring Depression Mon itoring [facility] Start: 08-31-2025 End: 08-31-2025 Patient encounter procedure 08/31/2025 8:00 AM EST Procedure Visit [facility] [address] [place] [address] Luisito Donovan MD [address] [place] [address] [place] [address] [facility] Start: 05-20-2025 End: 05-20-2025 Patient encounter procedure 05/20/2025 8:30 AM EDT Procedure Visit [address] [place] [id number] Luisito Donovan MD [address] [place] [address] [place] [address] [facility] Start: 04-25-2025 COVID-19 Vaccine ( season) COVID-19 Vaccine ( season) [facility] Start: 04-25-2025 Influenza vaccination [facility] Start: 02-18-2025 End: 02-18-2025 Patient encounter procedure 02/18/2025 8:30 AM EDT Procedure Visit [address] [place] [id number] Luisito Donovan MD [address] [place] [address] [place] [address] [facility] Start: 11-19-2024 End: 11-19-2024 Patient encounter procedure 11/19/2024 8:00 AM EDT Procedure Visit [address] [place] [id number] Luisito Donovan MD [address] [place] [address] [place] [address] [facility] Start: 10-06-2024 End: 10-06-2024 Patient encounter procedure 10/06/2024 2:15 PM EST Office Visit U[facility]/Gynecology [address] [place] [address] Luz Parsons, HOUSING OFFICER.RETURN TO SERVICE INSPECTOR [address] [place] [address] Cysto w/Botox [facility] Comment on above: Cysto w/Botox Start: 10-06-2024 End: 10-06-2024 Patient encounter procedure [facility]Gy[facility]cology Comment on above: Cysto w/Botox Start: 10-01-2024 [facility]ST[facility]COPY [facility] Procedures Routine Urge incontinence Expected: 10/01/2024 [facility] Work Phone: Comment on above: Expected: 10/01/2024 Start: 08-24-2024 Pneumococcal vaccination Pneum ococcal Vaccine (3 of 3 - PPSV23 or PCV20) [facility] Start: 08-24-2024 Pneumococcal Vaccine : 50+ (3 of 3 - PPSV23, PCV20 or PCV21) Pneumococcal Vaccine: 50+ (3 of 3 - PPSV23, PCV20 or PCV21) [facility] Start: 08-24-2024 Pneumococcal Vaccine : 50+ Years (3 of 3 - PCV20 or PCV21) Pneumococcal Vaccine: 50+ Years (3 of 3 - PCV20 or PCV21) [facility] Start: 08-20-2024 End: 08-20-2024 Patient encounter procedure 08/20/2024 8:30 AM EST Procedure Visit [facility] [address] [place] [address] [place] [phone] Luisito Donovan MD [address] [place] [address] [place] [address] [facility] Start: 08-03-2024 End: 11-02-2024 Bacteria identified in Urine by Culture URINE CULTURE Microbiology Routine UTI symptoms Expected: 08/03/2024, Expires: 11/02/2024 [facility] Work Phone: Comment on above: Expected: 08/03/2024 , Expires: 11/02/2024 Start: 05-21-2024 End: 05-21-2024 Patient encounter procedure 05/21/2024 8:15 AM EDT Procedure Visit [facility] [address] [place] [phone] Luisito Donovan MD [address] [place] [address] [place] [address] [facility] Start: 04-25-2024 COVID-19 Vaccine ( season) COVID-19 Vaccine ( season) [facility] Start: 04-25-2024 COVID-19 Vaccine () COVID-19 Vaccine () [facility] Start: 04-25-2024 Influenza vaccination C [facility] Start: 04-02-2024 End: 04-02-2024 Patient encounter procedure 04/02/2024 8:00 AM EDT Office Visit [facility] [address] [place] [address] Gege Jamison MD [address] [place] [address] Cysto w/Botox [facility] Comment on above: Cysto w/Botox Start: 04-01-2024 End: 04-01-2024 Patient encounter procedure 04/01/2024 8:00 AM EDT Office Visit [facility]Gynecology [address] [place] [address] Gege Jamison MD [address] [place] [address] Cysto w/Botox [facility] Comment on above: Cysto w/Botox Start: 03-14-2024 End: 03-14-2024 Patient encounter procedure 03/14/2024 9:40 AM EDT Appointment MRI Q [address] [address] Multiple sclerosis (HCC) [G35] MRI Q Comment on above: Multiple sclerosis ( HCC) [G35] Start: 03-14-2024 End: 03-14-2024 Patient encounter procedure MRI Q Comment on above: Multiple sclerosis ( HCC) [G35] Start: 02-20-2024 End: 02-20-2024 Patient encounter procedure 02/20/2024 7:30 AM EDT Procedure Visit [facility] [address] [place] [address] [place] [phone] Luisito Donovan MD [address] [place] [address] [facility] Start: 02-11-2024 End: 02-11-2024 Patient encounter procedure 02/11/2024 2:45 PM EDT Office Visit [facility] [address] [address] Caio Cortes MD [address] [address] 3 month followup [facility] Comment on above: 3 month followup Start: 11-21-2023 End: 11-21-2023 Patient encounter procedure 11/21/2023 7:30 AM EDT Procedure Visit [facility] [address] [place] [address] [place] [address] Luisito Donovan MD [address] [place] [address] [facility] Start: 10-24-2023 End: 01-23-2024 Comprehensive metabolic 2000 panel - Serum or Plasma COMP METABOLIC PANEL Lab Routine Medication management Expected: 10/24/2023, Expires: 01/23/2024 [facility] Work Phone: Comment on above: Expected: 10/24/2023 , Expires: 01/23/2024 Start: 08-25-2023 Behavioral Health Screening Behavioral Health Screening [facility] Start: 08-25-2023 Depression Assessment Depression Ass essment [facility] Start: 08-20-2023 End: 08-20-2023 Patient encounter procedure 08/20/2023 7:30 AM EST Procedure Visit [facility] [address] [place] [address] [place] [phone] Luisito Donovan MD 500 [facility] [place] [address] [facility] Start: 05-21-2023 End: 05-21-2023 Patient encounter procedure 05/21/2023 8:00 AM EDT Procedure Visit [facility] [address] [place] [address] [place] [phone] Luisito Donovan MD [address] [facility] [place] [address] [facility] Start: 04-25-2023 COVID-19 Vaccine ( season) COVID-19 Vaccine () [facility] Start: 04-25-2023 Influenza vaccination [facility] Start: 02-18-2023 End: 02-18-2023 Patient encounter procedure 02/18/2023 9:30 AM EDT Procedure Visit [facility] [address] [facility] [place] [phone] Luisito Donovan MD [address] [facility] [place] [address] [facility] Start: 04-29-2022 Diabetes Screening Diabetes Screenin g [facility] Start: 06-20-2021 COVID-19 Vaccine (3 - Booster for Moderna series) COVID-19 Vaccine (3 - Booster for Moderna series) [facility] Start: 06-20-2021 COVID-19 Vaccine (3 - Moderna series) COVID-19 Vaccine (3 - Moderna series) [facility] Start: 05-23-2021 Covid-19 Vaccine (3 - Moderna risk series) Covid-19 Vaccine (3 - Moderna risk series) [facility] Start: 04-27-2021 Screening for malign ant neoplasm of breast Mammogram [facility] Start: 2019 Screening for malign ant neoplasm of lung Lung Cancer Screening [facility] Start: 2019 Zoster Vaccines (1 of 2) Zoste r Vaccines (1 of 2) [facility] Start: 05-04-2019 End: 05-04-2019 Appointment 05/04/2019 Appointment General Surgery Godwin Huddleston MD [address] [place] [address], [address] [place] [address] [phone] [facility] General Surgery Start: 04-25-2019 Influenza vaccination Flu vaccine (# 1) [place], [place] Start: 01-12-2019 Screening for malign ant neoplasm of colon [facility] Start: 05-29-2018 Thyroid stimulating hormone measurement TSH Level [facility] Start: 04-04-2018 DTaP/Tdap/Td vaccine (6 - Td) DTaP/Tdap/Td vaccine (6 - Td) [place] Start: 04-04-2018 DTaP/Tdap/Td Vaccine s (6 - Td or Tdap) DTaP/Tdap/Td Vaccines (6 - Td or Tdap) [facility] Start: 04-04-2018 DTaP/Tdap/Td Vaccine s (7 - Td or Tdap) DTaP/Tdap/Td Vaccines (7 - Td or Tdap) [facility] Start: 04-04-[address] [facility] Start: 2014 Lipid panel Lipid Screening [facility] Start: 2014 Screening for malign ant neoplasm of colon [facility] Start: 05-14-2010 MMR Vaccines (1 of 1 - Standard series) MMR Vaccines (1 of 1 - Standard series) [facility] Start: 2009 Diabetes screen Diabetes screen [place], [place] Start: 2009 Lipid screen Lipid screen [place], [place] Start: 2009 Screening for malign ant neoplasm of breast [facility] Start: 10-20-2005 Pneumococcal Vaccine : 50+ Years (2 of 2 - PPSV23) Pneumococcal Vaccine: 50+ Years (2 of 2 - PPSV23) [facility] Start: 1999 Screening for malign ant neoplasm of cervix HPV Testing [facility] Start: 1990 Screening for malign ant neoplasm of cervix Pap Testing [facility] Start: 1988 Shingrix Vaccine (1 of 2) Shingrix Vaccine (1 of 2) [facility] Start: 1988 Urine screening for protein Diabetes: Urine Protein Screening [facility] Start: 1987 Anxiety Screening Anxiety Screening [facility] Start: 1987 Depression Screening Depression Scre ening [facility] Start: 1987 Diabetes: Estimated Glomerular Filtration Rate for Kidney Health Diabetes: Estimated Glomerular Filtration Rate for Kidney Health [facility] Start: 1987 Diabetes: Urine Albumin-Creatinine Ratio for Kidney Health Diabetes: Urine Albumin-Creatinine Ratio for Kidney Health [facility] Start: 1987 [facility]atitis [facility]: 1987 HIV screening HIV Screening [facility] Start: 1984 HIV screen HIV screen [place], [place] Start: 1981 Depression Monitoring Depression Mon [facility] Start: 1981 Depression Screening Depression Scre aniyah [facility] Start: 1980 Screening for malign ant neoplasm of cervix Cervical Cancer Screening [facility] Start: 1979 Diabetic foot examination Diabetes: Foot Exam [facility] Start: 1979 Glaucoma screening Diabetes: R etinopathy Screening [facility] Start: 1979 Preventive dental service Diabetes: Dental Exam [facility] Start: 1975 Pneumococcal 0-64 ye ars Vaccine (1 of 1 - PPSV23) Pneumococcal 0-64 years Vaccine (1 of 1 - PPSV23) [place], [place] Start: 1969 Cyanocobalamin vitam in b-12 Vitamin B-12 [facility] Start: 1969 Diabetes: Celiac Dis ease Screening Diabetes: Celiac Disease Screening [facility] Start: 1969 Hemoglobin A1c measurement Diabetes: Hemoglobin A1C [facility] Start: 1969 HIV screening HIV Screening [facility] Start: 1969 Lipid panel Lipid Panel [facility] Start: 1969 Screening for malign ant neoplasm of colon [facility] Start: 1969 Thyroid stimulating hormone measurement TSH Level [facility] Bacteria identified in Urine by Culture URINE CULTURE Microbiology Routine UTI symptoms 08/04/2024 8:[address] [facility] CYSTOSCOPY WHI CYSTOSCOPY WHI Procedures Routine Neurogenic dysfunction of the urinary bladder OAB (overactive bladder) 1 Occurrences starting 01/08/2024 [facility] Work Phone: Comment on above: 1 Occurrences starti ng 01/08/2024 EKG 12 Lead EKG 12 Lead ECG Routine 04/29/2019 4:31 PM [facility] [place] End: 11-20-2024 EPIL EEG LONG EPIL EEG LONG NEUROLOGY Routine Episode of loss of consciousness 1 Occurrences starting 11/21/2023 until 11/20/2024 [facility] Work Phone: Comment on above: 1 Occurrences starti ng 11/21/2023 until 11/20/2024 End: 03-12-2025 MR Brain WO and W contrast IV MRI BRAIN WO/W IVCON Radiology Routine Multiple sclerosis (HCC) 1 Occurrences starting 02/11/2024 until 03/12/2025 [facility] Work Phone: Comment on above: 1 Occurrences starti ng 02/11/2024 until 03/12/2025 End: 03-12-2025 MR Cervical spine WO and W contrast IV MRI CERVICAL SPINE WO/W IVCON Radiology Routine Multiple sclerosis (HCC) 1 Occurrences starting 02/11/2024 until 03/12/2025 [facility] Comment on above: 1 Occurrences starti ng 02/11/2024 until 03/12/2025 End: 03-12-2025 MR Thoracic spine WO and W contrast IV MRI THORACIC SPINE WO/W IVCON Radiology Routine Multiple sclerosis (HCC) 1 Occurrences starting 02/11/2024 until 03/12/2025 [facility] Comment on above: 1 Occurrences starti ng 02/11/2024 until 03/12/2025 XR CERV OTHER 4V AP/LAT/FLX/EXT XR CERV OTHER 4V AP/LAT/FLX/EXT Radiology Routine Cervical disc disorder with radiculopathy 10/08/2023 10:08 AM EST [facility] Work Phone: [facility] Immunizations Immunization Date Immunization Notes Care Provider Fa cility 03-28-2021 Covid (Moderna) Dr. Darshan Wu Work Phone: [facility] Work Phone: 08-24-2019 pneumococcal polysaccharide vaccine, [address] Dina Wu Work Phone: [facility] Work Phone: 08-24-2019 pneumococcal vaccine , unspecified formulation Dr. Dina Wu Work Phone: [facility] Work Phone: 06-22-2019 pneumococcal conjuga te vaccine, [address] Dina Wu Work Phone: [facility] Work Phone: 06-22-2019 pneumococcal vaccine , unspecified formulation Dr. Dina Wu Work Phone: [facility] Work Phone: 08-25-2016 influenza virus vacc ine, unspecified formulation Luisito Donovan MD Work Phone: [facility] Payers Date Payer Category Payer Self-pay [id number] [address] [facility] - [facility] MMO SUPERMED [id number] 2023 Unknown [id number] 2023 Unknown [id number] 2023 Private Health Insurance [id number] 2016 Unknown [employer] ANTHEM BLUE ACCESS ROS[place] xxxxxxxxxxxx 2016-Present [address] [place] [address] xxxxxxxxxxxx [id number] 2016 Unknown [id number] 1969 Unknown [id number] [id number] .419 1969 Unknown [id number] 2.16.840.1.945256.3.579.2 .419 1969 Unknown [id number] 2.16.840.1.935299.3.579.2 .419 1959 Private Health Insurance [id number] 1959 Private Health Insurance [id number] Private Health Insurance [id number] Unknown [id number] Unknown [id number] 2.16.840.1.298605.3.579.2 .462 Unknown [id number] 2.16.840.1.984622.3.579.2 .462 Unknown [id number] 2.16.840.1.010998.3.579.2 .462 Unknown [id number] 2.16.840.1.406528.3.579.2 .462 Unknown [id number] 2.16.840.1.972868.3.579.2 .462 Unknown [id number] 2.16.840.1.406186.3.579.2 .462 Unknown [id number] 2.16.840.1.424211.3.579.2 .462 Unknown [id number] 2.16.840.1.127804.3.579.2 .462 Unknown [id number] 2.16.840.1.828265.3.579.2 .462 Unknown [id number] 2.16.840.1.893991.3.579.2 .462 Unknown [id number] 2.16.840.1.205069.3.579.2 .462 Unknown [id number] 2.16.840.1.089122.3.579.2 .462 Unknown [id number] 2.16.840.1.205838.3.579.2 .462 Unknown [id number] 2.16.840.1.645934.3.579.2 .462 Unknown [id number] 2.16.840.1.042966.3.579.2 .462 Unknown [id number] 2.16.840.1.635347.3.579.2 .462 Unknown [id number] 2.16.840.1.135196.3.579.2 .462 Unknown [id number] 2.16.840.1.586720.3.579.2 .462 Unknown [id number] 2.16.840.1.803407.3.579.2 .462 Social History Date Type Detail Facility Start: 04-29-2019 Tobacco smoking stat us MOIS Current every day smoker [place], [place] Start: 08-25-1986 End: 05-25-2021 History of tobacco use Cigarette Smoker [place] Start: 04-29-2019 End: 05-25-2025 Cigarettes smoked current (pack per day) - Reported [facility] Start: 04-29-2019 End: 05-25-[address] [facility] Start: 1970 Sex Assigned At Not on file [place] Start: 07-27-2021 End: 07-22-2022 Tobacco smoking status NHIS [facility]: Start: 04-10-2021 [facility]ig[facility] Work Phone: Start: 1970 Sex Assigned At Female S [facility] Start: 01-27-2023 End: 02-20-2024 Tobacco smoking status NHIS Ex-smoker [facility] Start: 08-25-1986 End: 05-25-2021 History of tobacco use Current smoker [facility] Start: 01-27-2023 End: 02-20-2024 Tobacco use and exposure Smokeless tobacco non-user [facility] Start: 01-27-2023 End: 05-25-2025 Alcohol intake Ex-drinker (finding) [facility] Start: 01-26-2023 Gender identity Identifies as female gender (finding) [facility] Start: 01-26-2023 Sexual orientation Heterosexual (fin ding) [facility] Start: 01-17-2023 End: 02-18-2023 Exposure to SARS-CoV-2 (event) Not sure [facility] Start: 10-08-2023 End: 03-28-2025 Alcohol intake Current non-drinker of alcohol (finding) [facility] National Score (1-10 0), lower number is lower risk 74 [facility] Start: 03-25-2022 Sex Female (finding) [facility] Medical Equipment Procedure Code Equipment Code Equipment Origin al Text Equipment Identifier Dates [id number] Start: 10-18-2017 [id number] Start: 10-18-2017 Functional Status Date Assessment Result Facility 05-25-2025 Patient Health Questionnaire 2 item (PHQ- 2) [Reported] [facility] Clinical Notes 10-30-2016 to 05-25-2025 Maria E Knight APRN - [facility] - 05/25/2025 7:30 AM EDTKarina Humphries MA - 05/25/2025 7:30 AM EDTPatient Luz Adame APRN.RETURN TO SERVICE INSPECTOR - 03/28/2025 3:45 PM EDTPatient InstructionsPatient Instructions Note Date & Type Note Facility 05-25-2025 History of Present illness Narrative DEPARTMENT OF NEUROLOGY BOTOX PROCEDURE NOTE FOR SPASTICITY Date: 05/25/25 Patient: Sarika Avila : 1970 Diagnosis: Spastic diplegia (HCC) [G80.1] Procedure: Botox injections in both lower extremities. [...] femoris 100 units in 3 different injection sites 2. L biceps femoris 50 units in 2 different injection sites 3. R Flexor digitorum longus 75 units 1 injection site 4. R Flexor digitorum brevis 50 units 1 injection site Total units injected 275 units. Units discarded 25 units. Comments: Patient received Botox injections into the lower extremities for spasticity control. The patient reports improvement in spasticity following Botox injections. the patient denies side effects from medications. The patient reports increase in right sciatic pain. She states she recently had imaging done and is scheduled with pain management later this month. She has been attending PT. Advised the patient a referral to neurosurgery can be sent if no relief from pain management. The patient verbalized understanding. Patient will return to the neurology clinic in 3 months for Botox injections, sooner if needed. [x] Pt tolerated procedure well. Pt advised to avoid exercise or strenuous physical activity for 24 hours. Post treatment expectations reviewed in detail. PALOMO Nam CNP Administrations This Visit onabotulinumtoxin A (BOTOX) injection 200 Units Admin Date 05/25/25 Action Given Dose 200 Units Route IntraMUSCular Site Other Administered By PALOMO Nam CNP Ordering Provider: PALOMO Nam CNP [facility]: [id number] Lot#: [id number] Dent Remover: Allergan Patient Supplied? No documented in this encounter [facility] 05-25-2025 Note DEPARTMENT OF NEUROL OGY BOTOX PROCEDURE NOTE FOR SPASTICITY Date: 05/25/25 Patient: Sarika Avila : 1970 Diagnosis: Spastic diplegia (HCC) [G80.1] Procedure: Botox injections in both lower extremities. [...] femoris 100 units in 3 different injection sites 2. L biceps femoris 50 units in 2 different injection sites 3. R Flexor digitorum longus 75 units 1 injection site 4. R Flexor digitorum brevis 50 units 1 injection site Total units injected 275 units. Units discarded 25 units. Comments: Patient received Botox injections into the lower extremities for spasticity control. The patient reports improvement in spasticity following Botox injections. the patient denies side effects from medications. The patient reports increase in right sciatic pain. She states she recently had imaging done and is scheduled with pain management later this month. She has been attending PT. Advised the patient a referral to neurosurgery can be sent if no relief from pain management. The patient verbalized understanding. Patient will return to the neurology clinic in 3 months for Botox injections, sooner if needed. [x] Pt tolerated procedure well. Pt advised to avoid exercise or strenuous physical activity for 24 hours. Post treatment expectations reviewed in detail. Maria E Knight APRN - [facility] 03-28-2025 Instructions Luz Parsons APRN.[facility] - 03/28/2025 4:01 PM EDT Images from the original note were not included. Overactive Bladder What is an overactive bladder? Overactive bladder represents a collection of symptoms that include: Urinary urgency -failure to be able to postpone the need to urinate Frequency of urination -the need to urinate at least eight times per day Urge incontinence -leakage of urine when one gets the urge to urinate Nocturia -the need to get up and urinate at least two times per night What causes an overactive bladder? Urine leakage and bladder control problems can have many possible causes that include: Weak pelvic muscles -muscles that have become stretched and weak due to and childbirth, which in turn have let the bladder sag out of position and have stretched the opening of the urethra causing urine leakage. Nerve damage -sending signals to the brain and bladder to empty at the wrong time. Diseases that can cause nerve damage include diabetes, Parkinson's, multiple sclerosis, and stroke. Traumas that can cause nerve damage include pelvic or back surgery, herniated disc, and radiation. Medications, alcohol, and caffeine -these products can dull the nerves, affecting the signal to the brain, resulting in bladder overflow. Diuretics and caffeine can cause rapid bladder filling and may cause bladder leakage. Infection -a urinary tract infection (UTI) can irritate bladder nerves and cause the bladder to squeeze without warning. Excess weight -being overweight puts pressure on the bladder and contributes to urge incontinence. Estrogen deficiency after menopause -may contribute to loss of urine due to urgency. Ask your doctor if vaginal-only estrogen therapy is right for you. This is different from systemic hormone therapy, which is absorbed throughout the body. How is overactive bladder treated? Bladder over activity is a very common condition. It is very treatable, but requires assistance from both the doctor and the patient. Treatment can range from behavioral modification techniques to drugs to procedures. If you move on to medications or procedures, it is important to continue to use the behavioral modification techniques to increase your chances of treatment success. What behavioral modification techniques can you do to help your overactive bladder? Keep a log During a typical day, write down your fluid intake, the number of times that you urinate, the number of accidents and when they occur (after coughing, sneezing, laughing, because you were not able to reach the bathroom in time, etc.). Monitor your diet Eliminate or decrease foods or beverages that may worsen bladder symptoms. These include: Alcoholic beverages Cantaloupe [place] and spicy foods Apples & apple juice [place] fruit Chocolate Tea & Coffee (including decaffeinated) Grapes Sugars: especially artificial sweeteners, saccharin, aspartame, sucrose, lactose, fructose, corn sweeteners, honey Carbonated beverages Guava Cranberries & cranberry juice Peaches Tomatoes & tomato juice Pineapple Vitamin B complex Milk products: milk, cheese, yogurt, cottage cheese, ice cream Plums Vinegar Strawberries Maintain bowel regularity Constipation can place added pressure on the bladder and have a negative effect on bladder function. By keeping healthy bowel habits, you may be able to avoid constipation and help to lessen bladder symptoms. The following are some suggestions for maintain bowel regularity: Increase fiber intake by eating foods such as beans, pasta, oatmeal, bran cereal, whole wheat bread, and fresh fruits and vegetable. Every morning take 2 tablespoons of this mixture: 1 cup applesauce, 1 cup unprocessed wheat bran, and cup prune juice. Exercise to maintain regular bowel movements. If you continue to have bowel problems, see your doctor. Maintain a healthy weight Being overweight can add pressure on your bladder, which may contribute to bladder problems. If you are overweight, weight loss can reduce pressure on your bladder. Stop smoking Cigarette smoking is irritating to the bladder muscle. Repeated coughing spasms due to smoker's cough can cause urine leakage. Drink non-irritating fluids People with bladder symptoms often drink fewer liquids so they don't have to urinate as often. You should drink about 3 to 4 glasses of liquids per day. Try to spread them out as evenly as possible throughout the day. Drinking fewer fluids causes you to produce more concentrated (dark yellow, strong-smelling) urine. Highly concentrated urine is irritating to the bladder and may actually cause more frequent urination. Limit your intake starting 2 or 3 hours before going to bed. Decrease or eliminate beverages that might worse bladder symptoms (see list under 2). Begin bladder retraining When you have overactive bladder, over time your bladder muscles become conditioned to react in a certain way. By retraining these muscles, you can hold urine better. Bladder retraining involves working with a healthcare professional to learn how to resist or inhibit the feeling of urgency, postpone voiding, and urinate according to a timetable (rather than in response to a feeling of urgency). To begin bladder training, you should start with your current voiding interval. For example, if you urinate every hour on average, this would be your current voiding interval. Once the beginning voiding interval has been established, you train your bladder to urinate on schedule. For example, you will need to urinate every 2 hours while awake with no voiding in between the interval. If you develop urgency in between the voiding intervals, immediately sit down in a comfortable position, take slow deep breaths in and out of your mouth, and try to imagine yourself in a favorite vacation spot or use some other relaxation technique until the urge passes -then proceed to the bathroom. Empty the bladder around the clock at first. Don't wait until the last minute. For example, start every 2 hours, and if you have remained dry, then increase the time between urinations. If you are wet, then decrease that time to every hour, and gradually increase the time between bathroom visits. If you normally go every hour, try to increase it to 1 hour and 15 minutes between visits. When you can maintain your new schedule without accident for 1 to 2 weeks, try increasing the time between bathroom visits by an additional 15 minutes until you reach an interval you feel comfortable with. The goal is to reach an interval of 2 to 4 hours between bathroom visits. Stick to the schedule as much as possible. Control the urge The jordan to bladder retraining is developing the ability to control urinary urges. When you experience a sudden urge, the following strategies may help: Stop what you are doing and stay put. Sit down when possible, or stand quietly. Remain very still. When you are still, it is easier to control your urge. Squeeze your pelvic floor muscles quickly several times. Do not relax fully in between. Relax the rest of your body. Take a few deep breaths to help you relax and let go of your tension. Concentrate on suppressing the urge feeling. Wait until the urge subsides. Walk to the bathroom at a normal pace. Do not king. Continue squeezing your pelvic floor muscles quickly while you walk. Be patient An entire bladder retraining program usually takes at least 6 to 8 weeks to produce results. Talk to your doctor about the best way to manage the symptoms of overactive bladder. He or she may recommend a combination of overactive bladder medication and bladder retraining to help you achieve the best outcome. Drug treatments Drugs can work very well to return normal function to the bladder. The type selected is based on the specific bladder control problem. Treatment usually begins at a low dose followed by a gradual dose increase. The intent is to use the lowest effective dose, which in turn will reduce the risk of experience side effects. Ask your doctor about the risks and benefits of using the following commonly prescribed drugs: Oxybutynin (Ditropan), Oxybutynin XL (Ditropan XL), Oxybutynin TDDS (Oxytrol) Oxybutynin Gel (Gelnique) Tolterodine (Detrol) Solifenacin (Vesicare) Fesoterodine (Toviaz) Darifenacin (Enablex) Trospium (Sanctura XR) Mirabegron (Myrbetriq) Procedures Percutaneous Tibial Nerve Stimulation (PTNS) This is an office-based procedure that electrically stimulates the nerves that control the bladder. An acupuncture needle is placed at the ankle and stimulation is delivered for 30 minutes. These sessions occur once per week for twelve weeks followed by monthly maintenance therapy. Bladder Injections This is an office-based procedure where botulinum toxin (Botox) is injected into the bladder to help it relax. Injections are given about twice per year. Rarely, these injections may cause trouble urinating. Sacral Nerve stimulation Sacral nerve stimulation is a therapy that electrically stimulates the nerves that control the bladder. A small device (a neurotransmitter) is implanted under the skin in the upper buttock area. The device sends mild electrical impulses through a lead (a wire) close to the sacral nerve (a nerve located in the lower back). The impulses, in turn, help provide bladder control. The therapy is tested with an office nerve test. If the nerve test is successful, the implant is placed. Useful Internet resources Https://www.The Wireless Registry.org/ https://www.niddk.nih.gov/health-i nformation https://www.Pylbasforpfd.org/ Bladder Training Program for Overactive Bladder & Urge Incontinence: Definition: Overactive bladder is described as involuntary contractions of the bladder, occurring at inappropriate times without the person's permission. These bladder contractions, or spasms, can lead to feelings of urinary frequency, urgency, pelvic discomfort or pressure and the loss of urine (incontinence). Urge incontinence is described as the involuntary loss of urine associated with a sudden urge to urinate, the sensation of a full bladder or without any sensation at all. This can happen anytime throughout the day or night and is not usually associated with activity (laugh, cough, sneeze). The goals of this bladder retraining program are to improve voluntary control of the bladder and decrease or eliminate symptoms such as frequency, urgency & incontinence. These goals are accomplished by a combination of medication (bladder relaxants ), pelvic muscle exercises, changes in diet & changes in urinary habits. This program requires diligence and dedication on the part of the patient. In certain cases, a program of electrical stimulation and/or biofeedback may be implemented. Bladder Training Program: Pelvic Muscle Exercises (Kegel): These exercises serve two purposes: they strengthen the supporting structures of the bladder and urethra and they help reduce or eliminate stress incontinence (loss of urine associated with laugh, cough, sneeze, etc). They also start a reflex which causes bladder relaxation and stops involuntary bladder contractions. The easiest way to learn which pelvic muscles to exercise is first to identify these muscles by stopping and starting the stream of urine. Once you have the feel of lrone these muscles, practice lorne and holding for about 10 seconds and then relax for 10 seconds. Repeat these exercises 10 times and do this at least 4 times daily. Try not to contract the abdominal muscles while lorne the pelvic floor muscles. Do not continue to start and stop the urinary stream; use this technique only initially to identify the pelvic floor muscles. Quick Flicks: When you get an urge to urinate, quickly contract your pelvic muscles (quick kegels). This will start a reflex to relax the bladder. Then, you will be able to hold off on going to urinate and slowly retrain the bladder to accommodate more urine. This will help to eliminate frequency and urgency. Fluid Restriction: The less you drink, the less urine your body makes. By decreasing your daily fluid intake, you can increase the time until the critical volume of urine is reaches that triggers an urge to urinate. Normal, healthy patients should be able to restrict their fluid intake to 4-6 eight ounce glasses daily. If nighttime frequency and urgency are a problem for you, you should limit your fluid intake in the evenings after dinner (within 3 hours of bedtime). This will help to reduce your nightly urine production, allowing you to sleep better. You should avoid caffeinated beverages such as coffee, tea, iced tea, etc. Try to drink caffeine-free tea (herbal tea) as well as decaffeinated coffee. Also avoid alcohol and wine as these also increase urine production and cause frequent urination. Changing Urinary Habits: Try to progressively delay the urge to urinate over the next several weeks. When you sense an urge to urinate, delay going to the bathroom and perform the pelvic muscle exercises described previously. Try each week to wait a little longer before urinating once the urge is noticeable. This process will help to retrain your bladder, so that it learns to accommodate more urine progressively. Continue to urinate at regular intervals throughout the day, without waiting until you are too full. The final goal should be normal urination every 3-4 hours without significant discomfort. Bladder Diary: You may be asked to keep a voiding diary/log. Record each time that you urinate for a typical 48-72 hour period. You may also be asked to measure the amount of urine each time. You should also record any episodes of incontinence (urine loss) or bladder pain. Common Bladder Irritants (to avoid): Alcoholic beverages: Artificial sweeteners and colors/dyes Tomatoes Beer Chocolate Spicy foods Wine [place] syrup [place] juices and fruit Caffeine: Sugar Carbonated fluids Soft drinks with caffeine Coffee Tea (including green tea) Medicines with caffeine Medication: You may be prescribed medication to help relax the bladder and reduce the involuntary contractions. There are several different medications which may be used, all with similar side effects. The common side effects include constipation, dry mouth, excessive thirst, blurred vision, flushing and dizziness. If you experience bothersome side effects, please call your doctor's office immediately so that the dose can be adjusted or another medication can be prescribed. If you have glaucoma, constipation or bowel problems, difficulty urinating or problems with your heart rhythm, you may not be able to take these medications. documented in this encounter [facility] 03-28-2025 History of Present illness Narrative TELEVISIT PROGRESS NOTE This is a telephone encounter initiated for an established patient, parent or guardian not originating from a related Evaluation & Management service provided within the previous 7 days nor leading to an Evaluation & Management service or procedure within the next 24 hours or soonest available appointment. Patient name and birthday verified: Yes Persons Present: patient DATE OF SERVICE: 03/28/2025 REASON FOR TELEVISIT: medication refill Called patient today for virtual follow up. She states Gemtesa is working really well. She was getting Botox injections which was fabulous but she had trouble keeping an appointment due to work. So she's just been taking Gemtesa and it's working well. Sleeping through the night and it's been years since that's happened. Not having any urine leakage at all which is great. Stopped drinking pepsi which has been extremely helpful. HISTORY REVIEWED (electronic chart updated): - medical history - medications - allergies Data Reviewed: No new labs Subjective Patient with overactive bladder; much improved on Gemtesa. Objective There were no vitals taken for this visit. No exam performed Assessment & Plan OAB (overactive bladder) We discussed the patient's options for her [...] OAB, bladder training and pelvic floor exercises. Continue Gemtesa at this time. She states her symptoms are well controlled on this medication and since stopping Pepsi intake she feels she does not need the Botox injections at this point. FU as needed. Orders: vibegron (GEMTESA) 75 mg tablet; Take 1 tablet by mouth once daily. Urge incontinence Medication management Visit was conducted via Audio-only and Spent 11 minutes on the date of the service which included preparing to see the patient, [id number] patient care, completing clinical documentation, obtaining and/or reviewing separately obtained history, performing a medically appropriate examination, counseling and educating the patient/family/caregiver, and ordering medications, tests, or procedures Provider Location: [facility] Patient Location: Patient Home or Place of Residence Total Time Spent: 11 minutes Luz Parsons APRN.CNP documented in this encounter [facility] 03-28-2025 Note HNO ID: [id number] Author: LUZ PARSONS APRN.CNP Service: ? Author Type: Nurse Practitioner Type: Progress Notes Filed: 03/28/2025 16:02 Note Text: TELEVISIT PROGRESS NOTE This is a telephone encounter initiated for an established patient, parent or guardian not originating from a related Evaluation AND Management service provided within the previous 7 days nor leading to an Evaluation AND Management service or procedure within the next 24 hours or soonest available appointment. Patient name and birthday verified: Yes Persons Present: patient DATE OF SERVICE: 03/28/2025 REASON FOR TELEVISIT: medication refill Called patient today for virtual follow up. She states Gemtesa is working really well. She was getting Botox injections which was fabulous but she had trouble keeping an appointment due to work. So she's just been taking Gemtesa and it's working well. Sleeping through the night and it's been years since that's happened. Not having any urine leakage at all which is great. Stopped drinking pepsi which has been extremely helpful. HISTORY REVIEWED (electronic chart updated): - medical history - medications - allergies Data Reviewed: No new labs Subjective Patient with overactive bladder; much improved on Gemtesa. Objective There were no vitals taken for this visit. No exam performed Assessment AND Plan OAB (overactive bladder) We discussed the patient's options for her [...] OAB, bladder training and pelvic floor exercises. Continue Gemtesa at this time. She states her symptoms are well controlled on this medication and since stopping Pepsi intake she feels she does not need the Botox injections at this point. FU as needed. Orders: vibegron (GEMTESA) 75 mg tablet; Take 1 tablet by mouth once daily. Urge incontinence Medication management Visit was conducted via Audio-only and Spent 11 minutes on the date of the service which included preparing to see the patient, [id number] patient care, completing clinical documentation, obtaining and/or reviewing separately obtained history, performing a medically appropriate examination, counseling and educating the patient/family/caregiver, and ordering medications, tests, or procedures Provider Location: [facility] Patient Location: Patient Home or Place of Residence Total Time Spent: 11 minutes Luz Parsons APRN.CNP [facility] 03-21-2025 Telephone encounter Note Sent. Pls have her scjeudle VV/ thnks The following approved medication requests have been transmitted electronically. Requested Prescriptions Signed Prescriptions Disp Refills vibegron (GEMTESA) 75 mg tablet 90 tablet 0 Sig: Take 1 tablet by mouth once daily. Authorizing Provider: LUZ PARSONS APRN.CNP [facility] 03-21-2025 Miscellaneous Notes Sent. Pls have her scjeudle VV/ thnks The following approved medication requests have been transmitted electronically. Requested Prescriptions Signed Prescriptions Disp Refills vibegron (GEMTESA) 75 mg tablet 90 tablet 0 Sig: Take 1 tablet by mouth once daily. Authorizing Provider: LUZ PARSONS APRN.CNP Call to pt. Verified name and . Pt states the Gemtesa has been working great for her. No questions or concerns about the medication/. Informed pt she will only receive a short term perscription due to needing an appointment. Pt will call the office to get that scheduled. documented in this encounter [facility] 03-21-2025 Telephone encounter Note Call to pt. Verified name and . Pt states the Gemtesa has been working great for her. No questions or concerns about the medication/. Informed pt she will only receive a short term perscription due to needing an appointment. Pt will call the office to get that scheduled. [facility] 02-18-2025 History of Present illness Narrative DEPARTMENT [...] Donovan MD Ordering Provider: Luisito Donovan MD [facility]: [id number] (x3) Lot#: [id number] (x3) Dent Remover: Allergan Patient Supplied? No documented in this encounter [facility] 02-18-2025 Note DEPARTMENT OF NEUROL OGY BOTOX [...] expectations reviewed in detail. Luisito Donovan MD [facility] 11-19-2024 History of Present illness Narrative DEPARTMENT OF NEUROLOGY BOTOX PROCEDURE NOTE FOR SPASTICITY Patient: aSrika Avila : 1970 Diagnosis: Spasticity [R25.2] Procedure: [...] Units Route IntraMUSCular Site Other Administered By [facility] Ordering Provider: Luisito Donovan MD [facility]:[id number] x3 Lot#: [id number] x2, [id number] Dent Remover: Allergan Patient Supplied?: No, buy & bill documented in this encounter [facility] 11-19-2024 Note DEPARTMENT OF NEUROL OGY BOTOX [...] expectations reviewed in detail. Luisito Donovan MD [facility] 09-16-2024 Telephone encounter Note 200 units Botox approved through 08/24/25 - NPCR. Updated sticky note. Pt scheduled for Botox on 10/06 at with Emily. Amna Burrows RN September 16, 2024 3:[address] [facility] 09-16-2024 Miscellaneous Notes 200 units Botox approved through 08/24/25 - NPCR. Updated sticky note. Pt scheduled for Botox on 10/06 at with Emily. Amna Burrows RN September 16, 2024 3:56 PM documented in this encounter [facility] 08-20-2024 History of Present illness Narrative [...] Donovan MD Ordering Provider: Luisito Donovan MD [facility]: [id number] Lot#: [id number] Dent Remover: Allergan Patient Supplied?: No documented in this encounter [facility] 08-20-2024 Note DEPARTMENT OF NEUROL OGY BOTOX [...] expectations reviewed in detail. Luisito Donovan MD [facility] 08-04-2024 Telephone encounter Note Due to difficulty with MyChart notes sending too quickly, I called patient. She just dropped off a sample at [facility] [place] lab. We will see if she has an infection and if not, consider repeating her Botox soon. Gege Jamison MD [facility] 08-04-2024 Miscellaneous Notes Due to difficulty with MyChart notes sending too quickly, I called patient. She just dropped off a sample at [facility] [place] lab. We will see if she has [...] updated: Yes Patient provided lab location in [place]. Carol Hyde RN Patient called in stating she is having accidents just in the last couple of days. Concerns of infection versus needing another Botox injection. Please advise. documented in this encounter [facility] 08-03-2024 Telephone encounter Note Three days [...] updated: Yes Patient provided lab location in [place]. Carol Hyde RN [facility] 08-03-2024 Telephone encounter Note Patient called in stating she is having accidents just in the last couple of days. Concerns of infection versus needing another Botox injection. Please advise. [facility] 05-21-2024 History of Present illness Narrative [...] Donovan MD Ordering Provider: Luisito Donovan MD [facility]: [id number] (x 3) Lot#: [id number] (x 3) Dent Remover: Allergan Patient Supplied?: No documented in this encounter [facility] 05-21-2024 History of Present illness Narrative DEPARTMENT [...] Donovan MD Ordering Provider: Luisito Donovan MD [facility]: [id number] (x 3) Lot#: [id number] (x 3) Dent Remover: Allergan Patient Supplied?: No documented in this encounter [facility] 05-21-2024 History of Present illness Narrative DEPARTMENT [...] Donovan MD Ordering Provider: Luisito Donovan MD [facility]: [id number] (x 3) Lot#: [id number] (x 3) Dent Remover: Allergan Patient Supplied?: No documented in this encounter [facility] 05-13-2024 Telephone encounter Note Yeison SHIN to call office back to see how she is [...] performed the entire procedure. Gege Jamison MD [facility] 05-13-2024 Miscellaneous Notes Yeison SHIN to [...] schedule her for an appointment with the AUTOMOTIVE BUYER to discuss further options. Thanks, Gege Jamison MD documented in this encounter [facility] 05-13-2024 Telephone encounter Note ----- Message from Gege Jamison MD sent at 04/01/2024 8:04 AM EDT ----- Regarding: botox followup Please call patient to see how she is doing after botox treatment. If she is doing well, confirm she has a six month appointment. If she is not happy with the results, please schedule her for an appointment with the AUTOMOTIVE BUYER to discuss further options. Thanks, Gege Jamison MD [facility] 04-01-2024 Instructions Gege Jamison MD - [...] the procedure with support from a medical anthropology director. The actual procedure takes about 3-5 minutes. [...] the Botox [place] [address] visit [email or web address] Call 6-305-41-BOTOX documented in this encounter [facility] 04-01-2024 Procedure note Procedure(s): CHEMODENERVATION/ BLADDER [...] performed the entire procedure. Gege Jamison MD [facility] 04-01-2024 Procedure note Procedure(s): CHEMODENERVATION/ BLADDER [...] Gege Jamison MD documented in this encounter [facility] 03-14-2024 History of Present illness Narrative [...] PATIENT PRESENTS WITH AN IMPLANTABLE OR ATTACHED MEDICAL CODING TECHNICIAN: No RADIOLOGY DEPARTMENT: MR; Exam(s) Completed: Head: Multiple Sclerosis Spine: Cervical spine and Thoracic spine PERIPHERAL IV DATA: Site assessment: Clean,Dry and Intact, Site disposition Discontinued SIGNED BY: RT Aj(R) March 14, 2024 9:28 AM documented in this encounter [facility] 03-04-2024 Telephone encounter Note Questionnaire form has not been completed, will fax when done. [facility] 03-04-2024 Miscellaneous Notes Questionnaire form has not been completed, will fax when done. Name of caller: Devin Contact phone number: [phone] Relationship to Patient: BobbyNora Provider: Dr. Donovan Practice: [facility] Chief Complaint/Reason for Call: Devin states she is checking on the pre authorization for Botox and would like a return call with an update. Please review. Best time of day caller can be reached: any Patient advised that office/PCP has 24-48 business hours to return their call: Yes Noted. Name of caller: Isela Contact phone number: [phone] Relationship to Patient: Josseline/MMO Provider: Dr Donovan [...] their call: Yes documented in this encounter [facility] 03-03-2024 Telephone encounter Note Name of caller: Devin Contact phone number: [phone] Relationship to Patient: Josseline Provider: Dr. Donovan Practice: [facility] Chief Complaint/Reason for Call: Devin states she is checking on the pre authorization for Botox and would like a return call with an update. Please review. Best time of day caller can be reached: any Patient advised that office/PCP has 24-48 business hours to return their call: Yes [facility] 03-03-2024 Miscellaneous Notes Name of caller: Devin Contact phone number: [phone] Relationship to Patient: Josseline Provider: Dr. Donovan Practice: [facility] Chief Complaint/Reason for Call: Devin states she is checking on the pre authorization for Botox and would like a return call with an update. Please review. Best time of day caller can be reached: any Patient advised that office/PCP has 24-48 business hours to return their call: Yes Noted. Name of caller: Isela Contact phone number: [phone] Relationship to Patient: Josseline/JENNIFER Provider: Dr Donovan [...] their call: Yes documented in this encounter [facility] 02-23-2024 Telephone encounter Note Noted. [facility] 02-23-2024 Telephone encounter Note Name of caller: Isela Contact phone number: [phone] Relationship to Patient: Josseline/JENNIFER Provider: Dr Donovan [...] business hours to return their call: Yes [facility] 02-20-2024 History of Present illness Narrative DEPARTMENT [...] Units Route IntraMUSCular Site Other Administered By [facility] Ordering Provider: Luisito Donovan MD [facility]:[id number] x3 Lot#: [id number] Dent Remover: Allergan Patient Supplied?: NO, buy and bill documented in this encounter [facility] 02-20-2024 History of Present illness Narrative DEPARTMENT [...] Units Route IntraMUSCular Site Other Administered By [facility] Ordering Provider: Luisito Donovan MD [facility]:[id number] x3 Lot#: [id number] Dent Remover: Allergan Patient Supplied?: NO, buy and bill documented in this encounter [facility] 02-20-2024 Miscellaneous Notes Addended by: LUISITO DONOVAN on: 03/10/2024 10:26 AM Modules accepted: Orders documented in this encounter [facility] 02-20-2024 Note Addended by: LUISITO KATZ on: 03/10/2024 10:26 AM Modules accepted: Orders [facility] 02-11-2024 Instructions Ki Callahan MD - 02/11/2024 [...] questions or concerns documented in this encounter [facility] 02-11-2024 History of Present illness Narrative Images from the original note were not included. [facility] FOLLOWUP/ESTABLISHED PATIENT VISIT DISEASE SUMMARY Date [...] MS, NATHALIE, mood disorder who presents to [facility] for follow up. 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 Boyfriend did not note any unusual behaviors [...] functioning) Flowsheet Row Appointment from 02/11/2024 in [facility] Office Visit from 11/21/2023 in [facility] Upper Extremity Domain T Score 37 43 Lower Extremity Domain T Score 31 36 Cognitive Function Domain T Score 38 38 Positive Affect Well Being T Score -- -- Ability To Participate In Social Roles T Score 42 38 Satisfaction With Social Roles T Score 35 41 Neuro-QoL Symptoms (higher=worse symptoms) Flowsheet Row Appointment from 02/11/2024 in [facility] Office Visit from 11/21/2023 in [facility] Sleep Domain T Score 68 57 Fatigue Domain T Score 60 56 Anxiety Domain T Score 63 59 Depression Domain T Score 57 61 Stigma Domain T Score 59 61 Emotional Behavior Dyscontrol T Score -- -- has a past medical history of Aspiration pneumonia ([facility]), Asthma, Bradycardia, Chronic gastritis, Colon polyps, Depression, Diabetes (), Elevated blood pressure, Endometriosis, Foot drop, right foot, GERD (gastroesophageal reflux disease), H. pylori infection (2012), Hemorrhoids, Hiatal hernia, Hypothyroidism, IBS (irritable bowel syndrome), Migraine, and Multiple sclerosis (). has a current medication list which includes [...] Flowsheet Row Office Visit from 11/21/2023 in [facility] Processing Speed Total Number Correct 53 Processing [...] the arms and legs was performed including nppfz-xj-hfodn, rapid-alternating, and fine movements. Rapid movements were [...] change medical management. -Obtain outside records from [facility] Neurology provider (especially related to [employer] administration) -Repeat CMP (already scheduled), continue to work with nephrology -She will send me the images for her most recent MRI of the brain from 10/20/2023 ([facility]) -Continue PT locally -Continue Gemtesa for urinary incontinence, followed by urology -Continue to follow with Pain Management locally -Continue to follow with Psychiatry/Psychology locally -Follow up in 3 months Office Visit on 02/11/24 MRI BRAIN WO/W IVCON MRI CERVICAL SPINE WO/W IVCON MRI THORACIC SPINE WO/W IVCON Follow-up: In 3 months at [facility] Ki Callahan MD PhD PGY-2 Neurology Resident I have reviewed the note documented by Dr. Callahan, and I personally participated in the jordan components of the history and physical. I edited the note where appropriate, and I agree with the assessment and plan. I spent a total of 30 minutes on the date of the service which included preparing to see the patient, uyws-ns-jcqo patient care, completing clinical documentation, obtaining and/or reviewing separately obtained history, performing a medically appropriate examination, counseling and educating the patient/family/caregiver. Caio Cortes MD [facility] Multiple Sclerosis documented in this encounter [facility] 01-23-2024 Telephone encounter Note This is a duplicate message and was combined with the later message on the same day. [facility] 01-23-2024 Miscellaneous Notes This is a duplicate message and was combined with the later message on the same day. documented in this encounter [facility] 01-23-2024 Telephone encounter Note Mobility and balance PT order was already placed today by PCP. PT order no longer needed from Dr. Cortes. [facility] 01-23-2024 Miscellaneous Notes Mobility and balance PT order was already placed today by PCP. PT order no longer needed from Dr. Cortes. documented in this encounter [facility] 01-08-2024 Note HNO ID: [id number] Author: MARIA DE JESUS CLEANING APRN.DARRIAN Service: ? Author Type: Nurse Practitioner Type: [...] Data Reviewed: Unable to review labs from [place] Assessment: (N32.81) OAB (overactive bladder) (primary encounter diagnosis) (N31.9) Neurogenic dysfunction of the urinary bladder (G35) MS (multiple sclerosis) (HCC) Plan: - Discussed 3rd line therapies at length. Patient would like to proceed with intradetrusor botox. Reviewed risks/benefits, including 5-6% of urinary retention. Cystoscopy and Botox orders placed. Total Time Spent: 24 minutes Maria De Jesus Cleaning APRN.[facility] 01-08-2024 Miscellaneous Notes Botox referral received [...] 2024 5:00 PM documented in this encounter [facility] 01-08-2024 Telephone encounter Note Botox referral [...] Burrows RN January 08, 2024 5:[address] [facility] 01-08-2024 History of Present illness Narrative [...] Data Reviewed: Unable to review labs from [place] Assessment: (N32.81) OAB (overactive bladder) (primary encounter diagnosis) (N31.9) Neurogenic dysfunction of the urinary bladder (G35) MS (multiple sclerosis) (HCC) Plan: - Discussed 3rd line therapies at length. Patient would like to proceed with intradetrusor botox. Reviewed risks/benefits, including 5-6% of urinary retention. Cystoscopy and Botox orders placed. Total Time Spent: 24 minutes Maria De Jesus Cleaning APRN.CNP documented in this encounter [facility] 12-31-2023 Telephone encounter Note Images from the original note were not included. Joselin Potts APRN.DARRIAN Ogi A81 Nurse [id number] minutes ago (12:57 PM) Please notify pt after reviewing drug information website, elevated GFR is not listed under adverse reactions. However, if pt is concerned she can stop the medication, specifically if it doesn't seem to be controlling her symptoms. The office should be reaching out to get her an appt to discuss Botox with the AUTOMOTIVE BUYER. Thank you Phoned pt, verified name/ Gave msg above per Tiffanie Potts CNP Understanding voiced and appreciative of call. Joann Membreno RN [facility] 12-31-2023 Miscellaneous Notes Images from the original note were not included. Joselin Potts APRN.RETURN TO SERVICE INSPECTOR Ogi A81 Nurse [id number] minutes ago (12:57 PM) Please notify pt after reviewing drug information website, elevated GFR is not listed under adverse reactions. However, if pt is concerned she can stop the medication, specifically if it doesn't seem to be controlling her symptoms. The office should be reaching out to get her an appt to discuss Botox with the AUTOMOTIVE BUYER. Thank you Phoned pt, verified name/ Gave msg above per Tiffanie Potts RETURN TO SERVICE INSPECTOR Understanding voiced and appreciative of call. Joann Membreno, RN S: Kera states she is taking Gemtesa and called to report lab results she had done at [facility]. States the only change she has had [...] final pvr was 300. pt tolerated well.Procedure [id number] PRES/ABSN URINE INCON [id number] CYSTOMETROGRAM W/COPY READER&[id number] ELECTRO-UROFLOWMETRY, [id number] URINE INCON PLAN DOC'EV2691 BMI<30 AND >=22 CALC & [id number] INTRAABDOMINAL PRESSURE [id number] DOC MEDS VERIFIED W/PT OR [id number] PT NOT ID UNHLTHY ALC USR SCR ALC [id number] ANAL/URINARY MUSCLE [id number] NORMAL BP READING DOC F/U NOT [id number] Scrn singh perf rslts [id number] CYSTOSCOPYFollow Upprn A: Sending recent lab values, [...] of the medication. documented in this encounter [facility] 12-31-2023 Telephone encounter Note S: Kera states she is taking Gemtesa and called to report lab results she had done at [facility]. States the only change she has had [...] Girl Problems episode on OAB. Trial with Michelle. Will reassess in 4 weeks. Discussed botox [...] final pvr was 300. pt tolerated well.Procedure [id number] PRES/ABSN URINE INCON [id number] CYSTOMETROGRAM W/COPY READER&[id number] ELECTRO-UROFLOWMETRY, [id number] URINE INCON PLAN DOC'ON4489 BMI<30 AND >=22 CALC & [id number] INTRAABDOMINAL PRESSURE [id number] DOC MEDS VERIFIED W/PT OR [id number] PT NOT ID UNHLTHY ALC USR SCR ALC W14458 ANAL/URINARY MUSCLE [id number] NORMAL BP READING DOC F/U NOT [id number] Scrn singh perf rslts [id number] CYSTOSCOPYFollow Upprn A: Sending recent lab values, [...] future plans. Please review/advise Yenny Adames RN [facility] 12-31-2023 Telephone encounter Note Patient called in stating she was originally on Myrbetriq (too expensive), and was then switched to Gemtesa. She recently had labs done and her GFR went from a 40 down to 34, and she was wondering if that is because of the medication. [facility] 12-18-2023 Telephone encounter Note Message forwarded to [facility] provider for review. [facility] 12-18-2023 Miscellaneous Notes Message forwarded to [facility] provider for review. documented in this encounter [facility] 11-26-2023 Miscellaneous Notes This message was addressed in a separate encounter from this day. documented in this encounter [facility] 11-21-2023 Instructions Caio Cortes MD - 11/21/2023 10:08 AM EDT Schedule an EEG. Send me the images for your most recent MRI of the brain from 10/20/2023 ([facility]). We will decide what to do with your Ampyra based on the results of your EEG. We also need your kidney function to be better before restarting the medication. At your next Pain Clinic appointment, discuss alternatives to Celebrex. Restart PT. documented in this encounter [facility] 11-21-2023 History of Present illness Narrative Images from the original note were not included. [facility] NEW PATIENT EVALUATION/CONSULTATION Referral source: No [...] expected to be with me at the [facility]. Ms. Avila first presented with relapsing symptoms beginning in 1996. While at the [email or web address], she noticed difficulty running during training. She [...] whole-body shaking/trembling after waking up in the instructor creeler on her couch. She eventually passed out [...] functioning) Flowsheet Row Appointment from 11/21/2023 in [facility] Upper Extremity Domain T Score 43 Lower Extremity Domain T Score 36 Cognitive Function Domain T Score 38 Positive Affect Well Being T Score -- Ability To Participate In Social Roles T Score 38 Satisfaction With Social Roles T Score 41 Neuro-QoL Symptoms (higher=worse symptoms) Flowsheet Row Appointment from 11/21/2023 in [facility] Sleep Domain T Score 57 Fatigue Domain T Score 56 Anxiety Domain T Score 59 Depression Domain T Score 61 Stigma Domain T Score 61 Emotional Behavior Dyscontrol T Score -- PAST HISTORY: has a past medical history of Aspiration pneumonia ([facility]), Asthma, Bradycardia, Chronic gastritis, Colon polyps, Depression, [...] the arms and legs was performed including knktn-og-flhpc, rapid-alternating, and fine movements. Rapid movements were [...] on treatment with [employer], who presents to [facility] and for further evaluation after an [...] recent MRI of the brain from 10/20/2023 ([facility]). Resume PT locally. Continue Gemtesa for urinary incontinence. Continue to follow with Pain Management locally. Continue to follow with Psychiatry locally. Office Visit on 11/21/23 EPIL EEG LONG By signing my name below, I, Doe Patel, attest that this documentation has been prepared under the direction and in presence of Dr. Caio Cortes Electronically signed, Luca Schmitz, November 21, 2023 10:44 AM I have personally seen and examined the patient and performed the medical-decision making components. I have reviewed the Doe Patel documentation and verified the findings in the note as written. I spent a total of 75 minutes on the date of the service which included preparing to see the patient, rocx-eq-fvtg patient care, completing clinical documentation, obtaining and/or reviewing separately obtained history, performing a medically appropriate examination, counseling and educating the patient/family/caregiver, and ordering medications, tests, or procedures. Caio Cortes MD [facility] Multiple Sclerosis November 21, 2023 10:44 AM documented in this encounter [facility] 11-21-2023 History of Present illness Narrative [...] DONOVAN MD Ordering Provider: LUISITO DONOVAN MD [facility]: [id number] Lot#: [id number] Dent Remover: Allergan Patient Supplied?: No documented in this encounter [facility] 11-03-2023 Miscellaneous Notes Gemtesa 75mg daily sent into pharmacy on 10/31/23. Confirmed with refills. The following approved medication requests have been transmitted electronically. Requested Prescriptions Signed Prescriptions Disp Refills vibegron (GEMTESA) 75 mg tablet 30 tablet 5 Sig: Take 1 tablet by mouth once daily. Authorizing Provider: LUZ PARSONS APRN.RETURN TO SERVICE INSPECTOR Called patient, verified by name and date of . Gemtesa and Trospium are the medications, similar to Myrbetriq, that the patient's insurance would cover. Patient is asking for a prescription for one of these medications to be sent to her [facility] pharmacy in [place]. Advised we will forward her request to her provider for further review. Patient verbalizes understanding and has no further questions at this time. Ashley Ndiaye RN [facility] 08/15/2023 Luz Parsons APRN.RETURN TO SERVICE INSPECTOR: Assessments 1. Urge incontinence - N39.41 (Primary) [...] offer her more. [facility] - Luz Parsons [facility] 08/15/23 Reason for Appointment 1. Uro/cysto and [...] should do. Pt can be reached at [phone]. documented in this encounter [facility] 10-31-2023 Miscellaneous Notes Chart reviewed. Gemtesa rx sent but it says this med is not covered. Maria De Jesus Cleaning APRN.DARRIAN Pt willing to try Gemtesa or Trospium. [...] (but isn't covered). Thank you! Routing to Uro/Movement Assembly Final Inspector AUTOMOTIVE BUYER Pool. Whitley Lyman RN October 31, 2023 3:59 PM documented in this encounter [facility] 10-27-2023 Miscellaneous Notes Scanned labs reviewed. Myrbetriq rx sent. Maria De Jesus Cleaning APRN.RETURN TO SERVICE INSPECTOR Medication requested: mirabegron (MYRBETRIQ) 50 mg Tb24 [...] may be similar. documented in this encounter [facility] 10-24-2023 Miscellaneous Notes Pt returning call to the nurse. Attempted to call pt. [facility] for pt to call office. Daisy Bhatti [...] out of medication? Maria De Jesus Cleaning APRN.DARRIAN Called pt. Verified name/ Verified pharmacy. [facility] Pt states myrbetriq is working well, [...] 4 Weeks, Reason: Cystometrogram (Urodynamics),Cystoscopy Routing to Uro/Movement Assembly Final Inspector AUTOMOTIVE BUYER Pool. Whitley Lyman RN October 23, 2023 4:35 PM Pt called requesting a rx of Myrbetriq to be sent to her pharmacy. She was previously given samples. She can be reached at [phone]. documented in this encounter [facility] 10-08-2023 Note HNO ID: [id number] Author: AURA DENNISON MD Service: ? Author Type: Physician Type: Progress Notes Filed: 10/08/2023 11:21 Note Text: NEUROSURGERY CONSULT NOTE Aura Dennison MD Chair, Clinical Neurosciences Director, Spinal Neurosurgery [facility] Date of visit: October 08, 2023 Patient Name: Ms.Kimberly Harper Avila Date of : 1970 Current Age: [age] year old Sex: female MRN/E# [id number] Last Office Visit: Visit date not found Chief Complaint: Patient presents with: New Patient Past Medical/Surgical History: Sarika Avila is a 53 year old female who is referred by Dr. Tanya Herron with the [facility] for neurosurgical evaluation of the [...] Dose Jian Celebrex Baclofen Gabapentin PT/OT: @ [facility] Botox injections for spastic diplegia PREVIOUS SURGERY: [...] SPX Laparoscopy, Multiple PAST SURGICAL HISTORY OF [place] tooth extraction x 4 TONSILLECTOMY PRIMARY/SECONDARY Tonsillectomy [...] mouth every morni (more content not included)... [facility] 10-08-2023 History of Present illness Narrative Images from the original note were not included. NEUROSURGERY CONSULT NOTE Aura Dennison MD Chair, Clinical Neurosciences Director, Spinal Neurosurgery [facility] Date of visit: October 08, 2023 Patient Name: Ms.Kimberly Harper Avila Date of : 1970 Current Age: [age] year old Sex: female MRN/E# [id number] Last Office Visit: Visit date not found Chief Complaint: Patient presents with: New Patient Past Medical/Surgical History: Sarika Avila is a 53 year old female who is referred by Dr. Tanya Herron with the [facility] for neurosurgical evaluation of the [...] Dose Jian Celebrex Baclofen Gabapentin PT/OT: @ [facility] Botox injections for spastic diplegia PREVIOUS SURGERY: No spine surgery PAIN EVALUATION 10/06/2023 2105 Pain Level: 6 Pain Location: Neck Description: [...] SPX Laparoscopy, Multiple PAST SURGICAL HISTORY OF [place]th[place] tooth extraction x 4 TONSILLECTOMY PRIMARY/SECONDARY <AGE [...] &/Or Wheezing September 19, 2017 Active 09-19-2017 [facility] ([id number]) cyanocobalamin, vitamin B-12, 1,000 mcg/mL kit Inject [...] and is in agreement with plan. Aura Dennison MD Chair, Clinical Neurosciences Director, Spinal Neurosurgery [facility] This note was partially generated using [employer] voice recognition system, and there may be some incorrect words, spellings, and punctuation that were not noted in checking the note before saving. documented in this encounter [facility] 08-21-2023 History of Present illness Narrative [...] the same doses patient had at the [facility]. The patient reports improvement in spasticity following [...] Administered By BRANDON Ordering Provider: Maria E Knight NP [facility]:[id number] x3 Lot#: [id number] Dent Remover: Allergan Patient Supplied?: No, buy and bill documented in this encounter [facility] 05-21-2023 History of Present illness Narrative DEPARTMENT [...] the same doses patient had at the [facility]. Patient will return to the neurology clinic [...] MD Ordering Provider: LUISITO DONOVAN MD NDC: [id number], [phone] Lot#: [id number] Dent Remover: Allergan Patient Supplied?: No documented in this encounter [facility] 02-18-2023 History of Present illness Narrative Administrations This Visit onabotulinumtoxin A (BOTOX) injection 200 Units Admin Date 02/18/23 Action Given Dose 200 Units Route IntraMUSCular Site Other Administered By LUISITO DONOVAN MD Ordering Provider: LUISITO DONOVAN MD NDC: [id number] x3 Lot#: [id number] Dent Remover: Allergan Patient Supplied?: No DEPARTMENT OF NEUROLOGY [...] LUISITO DONOVAN MD documented in this encounter [facility] 02-18-2023 History of Present illness Narrative Administrations This Visit onabotulinumtoxin A (BOTOX) injection 200 Units Admin Date 02/18/23 Action Given Dose 200 Units Route IntraMUSCular Site Other Administered By LUISITO DONOVAN MD Ordering Provider: LUISITO DONOVAN MD [facility]: [id number] x3 Lot#: [id number] Dent Remover: Allergan Patient Supplied?: No DEPARTMENT OF NEUROLOGY [...] following the same doses patient have a [facility]. Patient will return to the neurology clinic in 3 months at that time we will arrange if patient bilateral lower extremities. Thank you [x] Pt tolerated procedure well. Pt advised to avoid exercise or strenuous physical activity for 24 hours. Post treatment expectations reviewed in detail. LUISITO DONOVAN MD documented in this encounter [facility] 01-27-2023 History of Present illness Narrative Department [...] Impression: Diagnosis Plan 1. Spastic diplegia (CMS/HCC) ([facility]) 2. Multiple sclerosis ([facility]) Plan: We are going to perform Botox injections into both lower extremities following the same doses patient was receiving in [facility]. Patient will require 300 units of Botox. The injection will be performed as follow: Biceps femoris 25 , 25, 50, right Biceps femoris 25,25, left Flexor digitorum longus 75 right Flexor hallucis brevis 50 units. 300 units botox, spasticity LUISITO DONOVAN MD documented in this encounter [facility] 10-30-2016 Evaluation note Diagnosis Onset Date Fatigue acute Hypersomnolence acute Essential (primary) hypertension chronic Multiple sclerosis October 30, 2016 chroni c [facility] Work Phone: Evaluation noteNo assessment information available [facility] Work Phone: Evaluation note* Diagnosis Onset Date Resolution Status NATHALIE (obstructive sleep apnea) acute Essential (primary) hypertension chronic Right foot pain chronic Impetigo noneactive [facility] Work Phone: Evaluation note* Diagnosis Onset Date Resolution Status Essential (primary) hypertension chronic NATHALIE (obstructive sleep apnea) chronic Right foot pain chronic Impetigo noneactive Essential (primary) hypertension chronic NATHALIE (obstructive sleep apnea) chronic [facility] Work Phone: evaluation note* Diagnosis Onset Date Resolution Status Essential (primary) hypertension chronic NATHALIE (obstructive sleep apnea) chronic Right foot pain chronic Impetigo noneactive Essential (primary) hypertension chronic NATHALIE (obstructive sleep apnea) chronic Depression chronic Essential (primary) hypertension chronic Multiple sclerosis October 30, 2016 chiquita Harmon [facility] Work Phone: evaluation note* Diagnosis Spastic diplegia (CMS/HCC) (HCC)- Primary Unspecified infantile cerebral palsy Multiple sclerosis (HCC) Multiple [facility] Diagnosis Spasticity- Primary Abnormal involuntary movements [facility] Diagnosis Spasticity- Primary Abnormal involuntary movements [facility] Diagnosis Spastic diplegia (CMS/HCC) (HCC)- Primary Unspecified infantile cerebral palsy [facility] Diagnosis Spastic diplegia (CMS/HCC) (HCC)- Primary Unspecified infantile cerebral palsy Multiple sclerosis (HCC) Multiple sclerosis documented in this encounter [facility] note* Diagnosis Radiculopathy, cervical region- Primary Brachial neuritis or radiculitis nos [facility] Diagnosis Spinal stenosis of cervical region- Primary Spinal stenosis in cervical region [facility] Diagnosis Cervical disc disorder with radiculopathy Brachial neuritis or radiculitis nos [facility] Diagnosis Urge incontinence- Primary Medication management Encounter for long-term (current) use of other medications [facility] Diagnosis MS (multiple sclerosis) (HCC)- Primary Multiple sclerosis [facility] Diagnosis Episode of loss of consciousness- Primary Other alteration of consciousness Multiple sclerosis (HCC) [G35] Multiple sclerosis documented in this encounter [facility] [facility] Diagnosis OAB (overactive bladder)- Primary Hypertonicity of bladder Neurogenic dysfunction of the urinary bladder Neurogenic bladder, NOS MS (multiple sclerosis) (HCC) Multiple sclerosis documented [facility] this [facility] Diagnosis Spastic diplegia (CMS/HCC) (HCC)- Primary Unspecified infantile cerebral palsy [facility] Diagnosis Multiple sclerosis (HCC)- Primary Multiple sclerosis documented in this encounter [facility] note* Diagnosis Spastic diplegia (CMS/HCC) (HCC)- Primary Unspecified infantile cerebral palsy documented in this encounter [facility] note* Diagnosis Multiple sclerosis (HCC) Multiple sclerosis documented in this encounter [facility] note* Diagnosis Multiple sclerosis (HCC) Multiple sclerosis documented in this encounter [facility] note* Diagnosis Multiple sclerosis (HCC) Multiple sclerosis documented in this encounter [facility] note* Diagnosis OAB (overactive bladder)- Primary Hypertonicity of bladder documented in this encounter [facility] note* Diagnosis Urge incontinence- Primary Neurogenic dysfunction of the urinary bladder Neurogenic bladder, NOS OAB (overactive bladder) Hypertonicity of bladder documented in this encounter [facility] note* Diagnosis Spastic diplegia (CMS/HCC) (HCC)- Primary Unspecified infantile cerebral palsy documented in this encounter [facility] note* Diagnosis UTI symptoms- Primary Other symptoms involving urinary system documented in this encounter [facility] note* Diagnosis Spastic diplegia (CMS/HCC) (HCC)- Primary Unspecified infantile cerebral palsy documented in this encounter [facility] note* Diagnosis Acquired spastic diplegia of lower extremities (HCC)- Primary MS (multiple sclerosis) (HCC) Multiple sclerosis documented in this encounter [facility] note* Diagnosis OAB (overactive bladder) Hypertonicity of bladder documented in this encounter [facility] note* Diagnosis Urge incontinence- Primary OAB (overactive bladder) Hypertonicity of bladder Medication management Encounter for long-term (current) use of other medications * Assessment & Plan Note - Luz Parsons APRN.CNP - 03/28/2025 3:55 PM EDT Associated Problem(s): Urge incontinence documented in this encounter [facility] note* Diagnosis Spastic diplegia (HCC)- Primary Unspecified infantile cerebral palsy Multiple sclerosis documented in this encounter [facility] for referral (narrative)* Consultation (Routine) - Pending Review Specialty Diagnoses / Procedures Referred By Rohan garcia Referred To Contact Orthopedic Surgery Diagnoses MS (multiple sclerosis) (HCC) Donovan, Neymar, MD [address] [place] [address] Ben Blanc MD [address] [place] [address] [place] [address] Referral ID Status Reason Start Date Expiration Date Visits Requested Visits Authorized [id number] Pending Review Specialty Services Required 11/21/2023 11/20/2024 1 1 * Clinic-Administered Medication (Routine) - Pending Review Specialty Diagnoses / Procedures Referred By Rohan garcia Referred To Contact Diagnoses MS (multiple sclerosis) ([facility]) Luisito Donovan MD [address] [place] [id number] Referral ID Status Reason Start Date Expiration Date V isits Requested Visits Authorized [id number] Pending Review 11/21/2023 11/15/2024 1 1 [facility] for referral (narrative)* Outpatient Procedure (Routine) - Authorized Specialty Diagnoses / Procedures Referred By Rohan garcia Referred To Contact [facility] Diagnoses Episode of loss of consciousness Procedures EPIL EEG LONG EEG EXTENDED MONITORING 61-119 MINUTES ELECTROENCEPHALOGRAM REC COMA/SLEEP ONLY Caio Cortes MD [address] [place], [place] [id number] [place] [address] Referral ID Status Reason Start Date Expiration Date Visits Requested Visits Authorized [id number] Authorized Auto-Generat ed Referral 11/21/2023 11/20/2024 1 1 [facility] for visit Narrative* Diagnostic Procedure Only (Routine) - Closed Specialty Diagnoses / Procedures Referred By Roahn garcia Referred To Contact XR IMAGING Diagnoses Cervical disc disorder with radiculopathy Procedures XR CERV OTHER 4V AP/LAT/FLX/EXT RADEX SPINE CERVICAL 4 OR 5 VIEWS Aura Dennison I, MD [address] [place] [address] [place] [address] Referral ID Status Reason Start Date Expiration Date V isits Requested Visits Authorized [id number] Closed Auto-Generate d Referral 09/16/2023 10/15/[address] 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 Please bring your [facility] Surgical Information folder on the day of [...] Day Surgery You may use the free gas flow regulator parking at the main entrance on [address] [place] [address], or the free parking in the [facility] parking deck * Attachments The following attachments cannot be sent through Care Everywhere. * Pelvic Prolapse: Pre-op (Lithuanian) * Cystoscopy: Pre-op (Lithuanian) documented in this encounter History of Present [...] ADDT LABS SCANNED IN ON 05/01/22 DR GALVEZ SPOT ON SIDE OF LIP MASK LEAK Reason [...] Referral Specialty Diagnoses / Procedures Referred By Rohan garcia Referred To Contact Diagnoses Spasticity Luisito Donovan MD [address] [facility] [place] [address] Referral ID Status Reason Start Date Expiration Date V isits Requested Visits Authorized [id number] Pending Review 02/18/2023 08/17/2023 1 1 Specialty Diagnoses / Procedures Referred By Contac t Referred To Contact Diagnoses Spastic diplegia (CMS/HCC) (HCC) Maria E Knight, [place] - RETURN TO SERVICE INSPECTOR [address] [place] [address] Referral ID Status Reason Start Date Expiration Date V isits Requested Visits Authorized [id number] Pending Review 05/21/2023 11/17/2023 1 1 Referral ID Status Reason Start Date Expiration Date V isits Requested Visits Authorized [id number] Pending Review 08/21/2023 08/15/2024 1 1 Specialty Diagnoses / Procedures Referred By Contac t Referred To Contact [facility] Diagnoses Radiculopathy, cervical region Procedures CONSULT TO PHYSICAL THERAPY PHYSICAL THERAPY EVALUATION HIGH COMPLEX 45 MINS Aura Dennison I, MD [address] [place] [address] [facility] [place] [address] [place] [address] Referral ID Status Reason Start Date Expiration Date Visits Requested Visits Authorized [id number] Pending Review Auto-Generat ed Referral 10/08/2023 10/07/2024 1 1 Specialty Diagnoses / Procedures Referred By Contac t Referred To Contact Maria De Jesus Cleaning APRN.RETURN TO SERVICE INSPECTOR [address] [place] [address] Referral ID Status Reason Start Date Expiration Date V isits Requested Visits Authorized [id number] Pending Review 1 1 Specialty Diagnoses / Procedures Referred By Contac t Referred To Contact [facility] Diagnoses Neurogenic dysfunction of the urinary bladder OAB (overactive bladder) Procedures BOTULINUM TOXIN A PER 1 UNIT CYSTOURETHROSCOPY INJ CHEMODENERVATION BLADDER Maria De Jesus Cleaning APRN.RETURN TO SERVICE INSPECTOR [address] [place] [address] [facility] [address] [place] [id number] Referral ID Status Reason Start Date Expiration Date V isits Requested Visits Authorized [id number] Pending Review 01/08/2024 04/07/2024 1 1 Referral ID Status Reason Start Date Expiration Date V isits Requested Visits Authorized [id number] Pending Review 02/20/2024 02/14/2025 1 1 Specialty Diagnoses / Procedures Referred By Contac t Referred To Contact MR IMAGING Diagnoses Multiple sclerosis (HCC) Procedures MRI THORACIC SPINE WO/W IVCON MRI SPINAL CANAL THORACIC W/O & W/CONTR Caio Sullivan MD [address] [place] [address] Mr Imaging [place] [address] Referral ID Status Reason Start Date Expiration Date Visits Requested Visits Authorized [id number] Authorized Auto-Generat ed Referral 02/11/2024 03/12/2025 1 1 Specialty Diagnoses / Procedures Referred By Contac t Referred To Contact MR IMAGING Diagnoses Multiple sclerosis (HCC) Procedures MRI CERVICAL SPINE WO/W IVCON MRI SPINAL CANAL CERVICAL W/O & W/CONTR Caio Sullivan MD [address] [place] [address] Mr Imaging [place] [address] Referral ID Status Reason Start Date Expiration Date Visits Requested Visits Authorized [id number] Authorized Auto-Generat ed Referral 02/11/2024 03/12/2025 1 1 Specialty Diagnoses / Procedures Referred By Contac t Referred To Contact MR IMAGING Diagnoses Multiple sclerosis (HCC) Procedures MRI BRAIN WO/W IVCON MRI BRAIN BRAIN STEM W/O W/CONTRAST MATERIAL Caio Cortes MD [address] [place] [address] Mr Imaging [place] [address] Referral ID Status Reason Start Date Expiration Date Visits Requested Visits Authorized [id number] Authorized Auto-Generat ed Referral 02/11/2024 03/12/2025 1 1 Referral ID Status Reason Start Date Expiration Date V isits Requested Visits Authorized [id number] Closed Auto-Generate d Referral 02/11/2024 03/12/2025 1 1 Referral ID Status Reason Start Date Expiration Date V isits Requested Visits Authorized [id number] Closed Auto-Generate d Referral 02/11/2024 03/12/2025 1 1 Referral ID Status Reason Start Date Expiration Date V isits Requested Visits Authorized [id number] Closed Auto-Generate d Referral 02/11/2024 03/12/2025 1 1 Specialty Diagnoses / Procedures Referred By Contac t Referred To Contact [facility] Diagnoses Urge incontinence Procedures BOTULINUM TOXIN A PER 1 UNIT CYSTOURETHROSCOPY INJ CHEMODENERVATION BLADDER Gege Jamison MD [address] [place] [address] [facility] [address] [place] [address] Referral ID Status Reason Start Date Expiration Date V isits Requested Visits Authorized [id number] New Request 08/25/2024 08/24/2025 99 99 Referral ID Status Reason Start Date Expiration Date V isits Requested Visits Authorized [id number] Pending Review 05/21/2024 05/16/2025 1 1 Additional Source Comments INFORMATION SOURCE (unrecogn ized section and content) DATE CREATED AUTHOR 05/08/2019 [place] [employer] ([place]) DATE CREATED AUTHOR AUTHOR'S ORGANIZ ATION 05/23/2019 [facility] DATE CREATED AUTHOR AUTHOR'S ORGANIZ ATION 08/17/2023 [facility] DATE CREATED AUTHOR AUTHOR'S ORGANIZ ATION 01/11/2024 [facility] DATE CREATED AUTHOR AUTHOR'S ORGANIZ ATION 04/03/2025 [facility] DATE CREATED AUTHOR AUTHOR'S ORGANIZ ATION 05/30/2025 [employer] [facility] DATE CREATED AUTHOR AUTHOR'S ORGANIZ ATION 07/06/2025 [facility] Goals (unrecognized section and content) Goals [...] of lower extremities (HCC) MS (multiple sclerosis) ([facility]) Luisito Donovan MD [address] [facility] [place] [address] Phone: tel: fax: Referral ID Status Reason Start Date Expiration Date V isits Requested Visits Authorized [id number] Pending Review 02/18/2025 02/13/2026 1 1 Specialty Diagnoses / Procedures Referred By Contac t Referred To Contact Diagnoses Spastic diplegia (CMS/HCC) ([facility]) Maria E Knight, HOUSING OFFICER - DARRIAN [address] [place] [address] Referral ID Status Reason Start Date Expiration Date V isits Requested Visits Authorized [id number] Pending Review 08/21/2023 08/15/2024 1 1 Reason Comments New Patient Discuss botox inject ions spasticity in b/l legs Specialty Diagnoses / Procedures Referred By Contac t Referred To Contact Neurology Diagnoses Multiple sclerosis (HCC) Procedures RI OFFICE/OUTPATIENT NEW MODERATE MDM 45-59 MINUTES Inga James [address] [place] [address] Luisito Donovan MD [address] [place] [address] [place] [address] Referral ID Status Reason Start Date Expiration Date V isits Requested Visits Authorized [id number] Pending Review 12/06/2022 12/06/2023 1 1 Reason Comments Procedure Botox- Spasticity Specialty Diagnoses / Procedures Referred By Contac t Referred To Contact Diagnoses Spasticity Luisito Donovan MD [address] [facility] [place] [address] Referral ID Status Reason Start Date Expiration Date V isits Requested Visits Authorized [id number] Pending Review 02/18/2023 08/17/2023 1 1 Reason Onset Date Comments Med Refill 02/18/2023 Referral ID Status Reason Start Date Expiration Date V isits Requested Visits Authorized [id number] Pending Review 05/21/2023 11/17/2023 1 1 Reason Comments New Patient Reason Comments Med Change Request Reason Comments Procedure Specialty Diagnoses / Procedures Referred By Contac t Referred To Contact Diagnoses MS (multiple sclerosis) (HCC) Luisito Donovan MD [address] [facility] [address] [place] [id number] Referral ID Status Reason Start Date Expiration Date V isits Requested Visits Authorized [id number] Pending Review 11/21/2023 11/15/2024 1 1 Reason Comments New Patient Evaluation Reason Comments Patient Question Reason Comments Overactive Bladder Reason Comments Care Coordination Botox Referral ID Status Reason Start Date Expiration Date V isits Requested Visits Authorized [id number] Pending Review 02/20/2024 02/14/2025 1 1 Reason Comments Established Patient Follow-Up Reason Onset Date Comments Med Management 02/23/2024 Botox PA Reason Comments Radiology MRI Specialty Diagnoses / Procedures Referred By Contac t Referred To Contact MR IMAGING Diagnoses Multiple sclerosis (HCC) Procedures MRI THORACIC SPINE WO/W IVCON MRI SPINAL CANAL THORACIC W/O & [place] [address] [facility] [place] [address] [place] [address] Mr Imaging [place] [address] Referral ID Status Reason Start Date Expiration Date V isits Requested Visits Authorized [id number] Closed Auto-Generate d Referral 02/11/2024 03/12/2025 1 1 Specialty Diagnoses / Procedures Referred By Contac t Referred To Contact MR IMAGING Diagnoses Multiple sclerosis (HCC) Procedures MRI BRAIN WO/W IVCON MRI BRAIN BRAIN STEM W/O W/CONTRAST MATERIAL Caio Cortes MD [address] [place] [address] [place] [address] Mr Imaging [place] [address] Referral ID Status Reason Start Date Expiration Date V isits Requested Visits Authorized [id number] Closed Auto-Generate d Referral 02/11/2024 03/12/2025 1 1 Specialty Diagnoses / Procedures Referred By Contac t Referred To Contact MR IMAGING Diagnoses Multiple sclerosis (HCC) Procedures MRI CERVICAL SPINE WO/W IVCON MRI SPINAL CANAL CERVICAL W/O & W/CONTR Caio Sullivan MD [address] [place] [address] [place] [address] Referral ID Status Reason Start Date Expiration Date V isits Requested Visits Authorized [id number] Closed Auto-Generate d Referral 02/11/2024 03/12/2025 1 1 Reason Comments Refill Request Reason Comments Procedure Cysto botox 200 unit s Specialty Diagnoses / Procedures Referred By Contac t Referred To Contact URO GYNECOLOGY Diagnoses Neurogenic bladder Procedures BOTULINUM TOXIN A PER 1 UNIT CYSTOURETHROSCOPY INJ CHEMODENERVATION BLADDER [facility], Gege Hammond MD [address] [place] [address] Movement Assembly Final Inspector Urol Brittney Poncarol [address] [place] [address] Referral ID Status Reason Start Date Expiration Date V isits Requested Visits Authorized [id number] Authorized 03/31/2024 08/24/2024 99 99 Reason Comments Procedure Botox - spasticity Referral ID Status Reason Start Date Expiration Date V isits Requested Visits Authorized [id number] Pending Review 05/21/2024 05/16/2025 1 1 Reason Comments Procedure Botulinum Toxin Injection Specialty Diagnoses / Procedures Referred By Contac t Referred To Contact Diagnoses Spastic diplegia ([facility]) ([facility]) Maria E Knight, HOUSING OFFICER - RETURN TO SERVICE INSPECTOR [address] [place] [address] Phone: tel: fax: Referral ID Status Reason Start Date Expiration Date V isits Requested Visits Authorized [id number] Pending Review 08/20/2024 08/15/2025 1 1 Reason Comments Procedure Botox - Spasticity Specialty Diagnoses / Procedures Referred By Contac t Referred To Contact Diagnoses Spastic diplegia ([facility]) ([facility]) Maria E Knight, HOUSING OFFICER - RETURN TO SERVICE INSPECTOR [address] [place] [address] Phone: tel: fax: Referral ID Status Reason Start Date Expiration Date V isits Requested Visits Authorized [id number] Pending Review 11/19/2024 11/14/2025 1 1 Reason Onset Date Comments Refill Request 03/19/2025 Reason Comments Urinary Problem Reason Comments Procedure Botox - spastic dipl egia Specialty Diagnoses / Procedures Referred By Rohan garcia Referred To Contact Diagnoses Spastic diplegia ([facility]) Maria E Knight, HOUSING OFFICER - RETURN TO SERVICE INSPECTOR [address] [place] [address] Phone: tel: fax: Referral ID Status Reason Start Date Expiration Date V isits Requested Visits Authorized [id number] Pending Review 05/25/2025 05/20/2026 1 1 Care Teams (unrecognized sec tion and content) Pottery Striper Relationship Specialty Start Date End Date Antonieta Wube B [address] [place] [address] PCP - General 04/06/19 Pottery Striper Relationship Specialty Start Date End Date Meghna Wuongbe B [address] [place] [address] PCP - General 04/06/19 Pottery Striper Relationship Specialty Start Date End Date Meghna Wuongbe B [address] [place] [address] PCP - General 04/06/19 Pottery Striper Relationship Specialty Start Date End Date Meghna Wuongbe B [address] [place] [address] PCP - General 04/06/19 Pottery Striper Relationship Specialty Start Date End Date Meghna Wuongbe B [address] [place] [address] PCP - General Internal Medicine 05/21/23 Pottery Striper Relationship Specialty Start Date End Date Antonieta Wube B [address] [place] [phone] PCP - General Internal Medicine 05/21/23 Pottery Striper Relationship Specialty Start Date End Date Annita Escobedo DO PCP - General Family Medicine 04/30/17 Pottery Striper Relationship Specialty Start Date End Date Annita Escobedo DO PCP - General Family Medicine 04/30/17 Pottery Striper Relationship Specialty Start Date End Date Annita Escobedo DO PCP - General Family Medicine 04/30/17 Pottery Striper Relationship Specialty Start Date End Date Annita Escobedo DO PCP - General Family Medicine 04/30/17 Pottery Striper Relationship Specialty Start Date End Date Annita Escobedo DO PCP - General Family Medicine 04/30/17 Pottery Striper Relationship Specialty Start Date End Date Annita Escobedo DO PCP - General Family Medicine 04/30/17 Pottery Striper Relationship Specialty Start Date End Date Dina Wu [address] [facility] [address] [place] [phone] PCP - General Internal Medicine 05/21/23 Pottery Striper Relationship Specialty Start Date End Date Annita Escobedo DO PCP - General Family Medicine 04/30/17 Pottery Striper Relationship Specialty Start Date End Date Annita Escobedo DO PCP - General Family Medicine 04/30/17 Pottery Striper Relationship Specialty Start Date End Date Annita Escobedo DO PCP - General Family Medicine 04/30/17 Pottery Striper Relationship Specialty Start Date End Date Annita Escobedo DO PCP - General Family Medicine 04/30/17 Pottery Striper Relationship Specialty Start Date End Date Dina Wu [address] [place] [phone] PCP - General Internal Medicine 05/21/23 Pottery Striper Relationship Specialty Start Date End Date Annita Escobedo DO PCP - General Family Medicine 04/30/17 Pottery Striper Relationship Specialty Start Date End Date Dina Wu [address] [place] [phone] PCP - General Internal Medicine 05/21/23 Pottery Striper Relationship Specialty Start Date End Date Dina Wu [address] [place] [address] PCP - General Internal Medicine 05/21/23 Pottery Striper Relationship Specialty Start Date End Date Annita Escobedo DO PCP - General Family Medicine 04/30/17 Pottery 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 Relationship Specialty Start Date End Date Annita Escobedo DO PCP - General Family Medicine 04/30/17 Pottery Striper Relationship Specialty Start Date End Date Annita Escobedo DO PCP - General Family Medicine 04/30/17 Pottery Striper Relationship Specialty Start Date End Date Annita Escobedo DO PCP - General Family Medicine 04/30/17 Pottery Striper Relationship Specialty Start Date End Date Annita Escobedo DO PCP - General Family Medicine 04/30/17 Pottery Striper Relationship Specialty Start Date End Date Dina Wu [address] [facility] [address] [place] [address] PCP - General Internal Medicine 05/21/23 Pottery 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 Relationship Specialty Start Date End Date Annita Escobedo DO PCP - General Family Medicine 04/30/17 Pottery Striper Relationship Specialty Start Date End Date Dina Wu [address] [facility] [address] [place] [address] PCP - General Internal Medicine 05/21/23 Pottery Striper Relationship Specialty Start Date End Date Annita Escobedo DO PCP - General Family Medicine 04/30/17 Pottery Striper Relationship Specialty Start Date End Date Dina Wu [address] [place] [address] PCP - General Internal Medicine 05/21/23 Pottery Striper Relationship Specialty Start Date End Date Annita Escobedo DO PCP - General Family Medicine 04/30/17 Pottery Striper Relationship Specialty Start Date End Date Annita Escobedo DO PCP - General Family Medicine 04/30/17 Pottery Striper Relationship Specialty Start Date End Date Dina Wu [address] [address] PCP - General Internal Medicine 05/21/23 Source Comments (unrecognize d section and content) In the event this informatio n is protected by the Federal Confidentiality of Alcohol and Drug Abuse Patient Records regulations: The Federal rules restrict any use of the information to criminally investigate or prosecute any alcohol or drug abuse patient.[facility] the event this information is protected by the Federal Confidentiality of Alcohol and Drug Abuse Patient Records regulations: The Federal rules restrict any use of the information to criminally investigate or prosecute any alcohol or drug abuse patient.[facility] the event this information is protected by the Federal Confidentiality of Alcohol and Drug Abuse Patient Records regulations: The Federal rules restrict any use of the information to criminally investigate or prosecute any alcohol or drug abuse patient.[facility] the event this information is protected by the Federal Confidentiality of Alcohol and Drug Abuse Patient Records regulations: The Federal rules restrict any use of the information to criminally investigate or prosecute any alcohol or drug abuse patient.[facility] the event this information is protected by the Federal Confidentiality of Alcohol and Drug Abuse Patient Records regulations: The Federal rules restrict any use of the information to criminally investigate or prosecute any alcohol or drug abuse patient.[facility] HospitalIn the event this information is protected by the Federal Confidentiality of Alcohol and Drug Abuse Patient Records regulations: The Federal rules restrict any use of the information to criminally investigate or prosecute any alcohol or drug abuse patient.[facility] HospitalIn the event this information is protected by the Federal Confidentiality of Alcohol and Drug Abuse Patient Records regulations: The Federal rules restrict any use of the information to criminally investigate or prosecute any alcohol or drug abuse patient.[facility] HospitalIn the event this information is protected by the Federal Confidentiality of Alcohol and Drug Abuse Patient Records regulations: The Federal rules restrict any use of the information to criminally investigate or prosecute any alcohol or drug abuse patient.[facility] HospitalIn the event this information is protected by the Federal Confidentiality of Alcohol and Drug Abuse Patient Records regulations: The Federal rules restrict any use of the information to criminally investigate or prosecute any alcohol or drug abuse patient.[facility] HospitalIn the event this information is protected by the Federal Confidentiality of Alcohol and Drug Abuse Patient Records regulations: The Federal rules restrict any use of the information to criminally investigate or prosecute any alcohol or drug abuse patient.[facility] HospitalIn the event this information is protected by the Federal Confidentiality of Alcohol and Drug Abuse Patient Records regulations: The Federal rules restrict any use of the information to criminally investigate or prosecute any alcohol or drug abuse patient.[facility] HospitalIn the event this information is protected by the Federal Confidentiality of Alcohol and Drug Abuse Patient Records regulations: The Federal rules restrict any use of the information to criminally investigate or prosecute any alcohol or drug abuse patient.[facility] HospitalIn the event this information is protected by the Federal Confidentiality of Alcohol and Drug Abuse Patient Records regulations: The Federal rules restrict any use of the information to criminally investigate or prosecute any alcohol or drug abuse patient.[facility] HospitalIn the event this information is protected by the Federal Confidentiality of Alcohol and Drug Abuse Patient Records regulations: The Federal rules restrict any use of the information to criminally investigate or prosecute any alcohol or drug abuse patient.[facility] HospitalIn the event this information is protected by the Federal Confidentiality of Alcohol and Drug Abuse Patient Records regulations: The Federal rules restrict any use of the information to criminally investigate or prosecute any alcohol or drug abuse patient.[facility] HospitalIn the event this information is protected by the Federal Confidentiality of Alcohol and Drug Abuse Patient Records regulations: The Federal rules restrict any use of the information to criminally investigate or prosecute any alcohol or drug abuse patient.[facility] HospitalIn the event this information is protected by the Federal Confidentiality of Alcohol and Drug Abuse Patient Records regulations: The Federal rules restrict any use of the information to criminally investigate or prosecute any alcohol or drug abuse patient.[facility] HospitalIn the event this information is protected by the Federal Confidentiality of Alcohol and Drug Abuse Patient Records regulations: The Federal rules restrict any use of the information to criminally investigate or prosecute any alcohol or drug abuse patient.[facility] HospitalIn the event this information is protected by the Federal Confidentiality of Alcohol and Drug Abuse Patient Records regulations: The Federal rules restrict any use of the information to criminally investigate or prosecute any alcohol or drug abuse patient.[facility] HospitalIn the event this information is protected by the Federal Confidentiality of Alcohol and Drug Abuse Patient Records regulations: The Federal rules restrict any use of the information to criminally investigate or prosecute any alcohol or drug abuse patient.[facility] HospitalIn the event this information is protected by the Federal Confidentiality of Alcohol and Drug Abuse Patient Records regulations: The Federal rules restrict any use of the information to criminally investigate or prosecute any alcohol or drug abuse patient.[facility] HospitalIn the event this information is protected by the Federal Confidentiality of Alcohol and Drug Abuse Patient Records regulations: The Federal rules restrict any use of the information to criminally investigate or prosecute any alcohol or drug abuse patient.[facility] HospitalIn the event this information is protected by the Federal Confidentiality of Alcohol and Drug Abuse Patient Records regulations: The Federal rules restrict any use of the information to criminally investigate or prosecute any alcohol or drug abuse patient.[facility] HospitalIn the event this information is protected by the Federal Confidentiality of Alcohol and Drug Abuse Patient Records regulations: The Federal rules restrict any use of the information to criminally investigate or prosecute any alcohol or drug abuse patient.[facility] HospitalIn the event this information is protected by the Federal Confidentiality of Alcohol and Drug Abuse Patient Records regulations: The Federal rules restrict any use of the information to criminally investigate or prosecute any alcohol or drug abuse patient.[facility] HospitalIn the event this information is protected by the Federal Confidentiality of Alcohol and Drug Abuse Patient Records regulations: The Federal rules restrict any use of the information to criminally investigate or prosecute any alcohol or drug abuse patient.[facility] HospitalIn the event this information is protected by the Federal Confidentiality of Alcohol and Drug Abuse Patient Records regulations: The Federal rules restrict any use of the information to criminally investigate or prosecute any alcohol or drug abuse patient.[facility] FOR RECORDS PERTAINING TO PATIENTS WHO [...] BASED ON THE PRIMARY CLINICAL RECORDS. [facility]. provides no warranty or guarantee of the accuracy or completeness of information in this document.
--- NOTE | 2025-08-24 08:05 | RAD_ITS ---
PROCEDURE: HIP, UNI W/ PELVIS 2-3 VIEWS 08/24/2025 REASON FOR EXAM: RIGHT PELVIC PAIN TECHNIQUE: Procedure Code: RAD Modality: DX Procedure: HIP, UNI W/ PELVIS 2-3 VIEWS COMPARISON: 04/19/2024 pelvis and bilateral hip radiographs. FINDINGS: No evidence of fracture. Hip joint cartilage spaces appear well-preserved. Patent appearing SI joints. No cam lesion identified. Vascular calcifications in the pelvis. No evidence of fracture, erosive or destructive process. Visualized bowel pattern appears normal. RAD/HIP, UNI W/ Pelvis 2-3 Views IMPRESSION: Unremarkable. Reading Location: [facility]
[2025-08-24 10:53] LABS: Anion Gap 9 (7-18); BUN 16 mg/dL (4-19); BUN/Creat Ratio 10.9 RATIO (10-20); Calcium,Total 9.6 mg/dL (7.6-11.0); Carbon Dioxide 30.1 mmol/L (20.0-29.0); Chloride 101 mmol/L (96-106); Free T3 2.5 pg/mL (2.18-3.98); Glucose 103 mg/dL (70-99); Potassium 4.2 mmol/L (3.5-5.1)
== END | disposition home or self-care (01) ==
PROVIDERS: PCP Internal Medicine; Referring Provider Internal Medicine; Visit Provider Internal Medicine
DX: E03.9 Hypothyroidism, unspecified (principal); E11.65 Type 2 diabetes mellitus with hyperglycemia; E11.22 Type 2 diabetes mellitus with diabetic chronic kidney disease; E27.8 Other specified disorders of adrenal gland; N18.9 Chronic kidney disease, unspecified
CPT/HCPCS: 36415; 73502; 80048; 84439; 84443; 84481